=== PATIENT | male | born 1970 | race American Indian/Alaskan Native ===

== ENCOUNTER 2020-12-20 10:56 | Inpatient (IN) | payer OTHER ==
[2020-12-20] MEDS ORDERED: dexAMETHasone 4 MG/ML VIAL IV ONE (11:25)
--- NOTE | 2020-12-20 11:28 | Emergency Department Report ---
HPI - General Chief Complaint: Dyspnea/Respdistress Time Seen by Provider: 12/20/20 11:17 - HPI HPI: 50-year-old -[place]is[place] male presents to the emergency department via EMS from senior care with complaint of shortness of breath and low oxygen saturation. The patient got his first Covid vaccine on December 11 and then began developing symptoms of shortness of breath, fatigue, cough. At first he thought it was a reaction to the vaccination, but he was tested on December 13 and was found to be positive for COVID-19. Since that time the patient been having some progressively worsening symptoms. The patient was found to have low oxygen saturation this morning in the 60s. He was given prednisone by the senior care, and magnesium by EMS. The patient was placed on a nonrebreather and went up into the 90s. The patient was seen at 78% on NRB upon arrival to this emergency department. He has a past medical history of hypertension. He denies any tob acco or illicit drug use. ED Past Medical Hx - Past Medical History Previous Medical History?: Yes Hx Hypertension: Yes Hx Congestive Heart Failure: Yes - Medications Home Medications: Home Medications Medication Instructions Recorded Confirmed Last Taken Type Losartan [Cozaar] 50 mg PO QDAY 12/20/20 12/20/20 12/20/20 07:00 History 50 ED Review of Systems ROS: Stated complaint: COVID POSITIVE/JIM/FROM ALF Other details as noted in HPI Comment: All other systems reviewed and negative Constitutional: denies: chills, fever Eyes: denies: eye pain, vision change ENT: denies: ear pain, throat pain Respiratory: cough, shortness of breath, wheezing Cardiovascular: denies: chest pain, palpitations Gastrointestinal: denies: abdominal pain, vomiting Genitourinary: denies: dysuria, discharge Musculoskeletal: denies: back pain, arthralgia Skin: denies: rash, lesions Neurological: denies: headache, weakness Physical Exam - Physical Exam Physical Exam: GENERAL: The patient is ill-appearing. HENT: Normocephalic. Atraumatic. Patient has moist mucous membranes. EYES: Extraocular motions are intact. NECK: Supple. Trachea is midline. CHEST/LUNGS: There is tachypnea. Bilateral rhonchi. Conversational dyspnea. HEART/CARDIOVASCULAR: Regular. There is mild tachycardia. There is no murmur. ABDOMEN: Abdomen is soft, nontender. Patient has normal bowel sounds. Morbidly obese habitus. SKIN: Skin is warm and dry. NEURO: The patient is awake, alert, and oriented. The patient is cooperative. The patient has no focal neurologic deficits. Normal speech. MUSCULOSKELETAL: There is no tenderness or deformity. There is no limitation range of motion. ED Medical Decision Making - Lab Data Result diagrams: 12/20/20 11:31 12/20/20 11:31 Lab Results 12/20/20 12/20/20 12/20/20 Range/Units 11:31 11:31 11:31 WBC 16.5 H (4.5-11.0) K/mm3 RBC 5.27 H (3.65-5.03) M/mm3 Hgb 14.7 (11.8-15.2) gm/dl Hct 45.2 (35.5-45.6) % MCV 86 (84-94) fl MCH 28 (28-32) pg MCHC 32 (32-34) % RDW 14.4 (13.2-15.2) % Plt Count 204 (140-440) K/mm3 D-Dimer > 99161 H (0-234) ng/mlDDU Sodium 130 L (137-145) mmol/L Potassium 4.2 (3.6-5.0) mmol/L Chloride 94.5 L (98-107) mmol/L Carbon Dioxide 22 (22-30) mmol/L Anion Gap 18 mmol/L BUN 64 H (9-20) mg/dL Creatinine 2.6 H (0.8-1.3) mg/dL Estimated GFR 32 ml/min BUN/Creatinine Ratio 25 % Glucose 154 H (75-100) mg/dL Calcium 8.4 (8.4-10.2) mg/dL Total Bilirubin 1.00 (0.1-1.2) mg/dL AST 28 (5-40) units/L ALT 24 (7-56) units/L Alkaline Phosphatase 51 (35-129) units/L Lactate Dehydrogenase (91-180) units/L Troponin T (0.00-0.029) ng/mL C-Reactive Protein (0.00-1.30) mg/dL Total Protein 8.1 (6.3-8.2) g/dL Albumin 3.5 L (3.9-5) g/dL Albumin/Globulin Ratio 0.8 % Triglycerides (2-149) mg/dL Cholesterol (50-199) mg/dL LDL Cholesterol Direct (50-130) mg/dL HDL Cholesterol (40-59) mg/dL Cholesterol/HDL Ratio % Procalcitonin (<0.15) ng/mL 12/20/20 12/20/20 Range/Units 11:31 11:31 WBC (4.5-11.0) K/mm3 RBC (3.65-5.03) M/mm3 Hgb (11.8-15.2) gm/dl Hct (35.5-45.6) % MCV (84-94) fl MCH (28-32) pg MCHC (32-34) % RDW (13.2-15.2) % Plt Count (140-440) K/mm3 D-Dimer (0-234) ng/mlDDU Sodium (137-145) mmol/L Potassium (3.6-5.0) mmol/L Chloride (98-107) mmol/L Carbon Dioxide (22-30) mmol/L Anion Gap mmol/L BUN (9-20) mg/dL Creatinine (0.8-1.3) mg/dL Estimated GFR ml/min BUN/Creatinine Ratio % Glucose (75-100) mg/dL Calcium (8.4-10.2) mg/dL Total Bilirubin (0.1-1.2) mg/dL AST (5-40) units/L ALT (7-56) units/L Alkaline Phosphatase (35-129) units/L Lactate Dehydrogenase 10 L (91-180) units/L Troponin T 0.106 H* (0.00-0.029) ng/mL C-Reactive Protein 5.20 H (0.00-1.30) mg/dL Total Protein (6.3-8.2) g/dL Albumin (3.9-5) g/dL Albumin/Globulin Ratio % Triglycerides 226 H (2-149) mg/dL Cholesterol 175 (50-199) mg/dL LDL Cholesterol Direct 98 (50-130) mg/dL HDL Cholesterol 31 L (40-59) mg/dL Cholesterol/HDL Ratio 5.64 % Procalcitonin 1.45 (<0.15) ng/mL - EKG Data -: EKG Interpreted by Me EKG shows normal: sinus rhythm, axis (Left axis deviation), intervals, QRS c omplexes (Q waves to the anteroseptal leads), ST-T waves Rate: normal - EKG Data When compared to previous EKG there are: previous EKG unavailable Interpretation: other (Sinus rhythm, left axis deviation, Q waves to the anteroseptal leads. No ST elevation MO) - Radiology Data Radiology results: report reviewed CHEST 1 VIEW INDICATION: SOB. COMPARISON: None. FINDINGS: Support devices: None. Heart: Upper limits of normal. Lungs/Pleura: The exam is underpenetrated. There are questionable air space opacities in the right mid to lower lung. Left lung appears clear. No pleural abnormality is seen. IMPRESSION: 1. Limited study due to underpenetration. There is suggestion of mild airspace disease in the right mid to lower lung. - Medical Decision Making This patient presents from senior care with shortness of breath, hypoxia, and was found to be positive for COVID-19 about 1 week ago. The patient was 78% on a n onrebreather upon presentation. He was placed on high flow oxygen and went into the high 80s, low 90s. Chest x-ray shows some mild bilateral areas of infiltrate concerning for pneumonia. Patient's labs shows a leukocytosis of 16,000, renal insufficiency potentially showing NAVJOT, elevated troponin of 0.106, and elevated inflammatory markers D-dimer and CRP. Given that the D-dimer is greater than 10,000, without a profoundly abnormal chest x-ray, and with the patient significant hypoxia, a ventilation/perfusion scan has been ordered. Patient has been given a dose of Decadron, antibiotics and IV antibiotics. He will be admitted to the hospital for further evaluation and treatment and was a ccepted for admission by the hospitalist, Dr. Bass. Critical Care Time: Yes Critical care time in (mins) excluding proc time.: 35 Critical care attestation.: If time is entered above; I have spent that time in minutes in the direct care of this critically ill patient, excluding procedure time. Critical care time spent on this patient during his initial evaluation, multiple reevaluations, ordering and interpretation of labs and imaging, supplemental oxygen via high flow oxygen for his hypoxia, IV Decadron, IV antibiotics, multiple reevaluations. Critical Care Time: 35 minutes ED Disposition Clinical Impression: Suspected 2019 novel coronavirus infection, Acute respiratory failure with hypoxia, Pneumonia, NAVJOT (acute kidney injury), Elevated troponin Disposition: 09 ADMITTED INPATIENT Is pt being admited?: Yes Condition: Serious Time of Disposition: 15:08
[2020-12-20 11:52] LABS: Hematocrit 45.2 % (35.5-45.6); Hemoglobin 14.7 gm/dl (11.8-15.2); Mean Corpuscular HGB Conc 32 % (32-34); Mean Corpuscular Volume 86 fl (84-94); Platelet Count 204 K/mm3 (140-440); Red Blood Count 5.27 M/mm3 (3.65-5.03); Red Cell Distribution Width 14.4 % (13.2-15.2)
--- NOTE | 2020-12-20 12:20 | XRay Report ---
CHEST 1 VIEW INDICATION: SOB. COMPARISON: None. FINDINGS: Support devices: None. Heart: Upper limits of normal. Lungs/Pleura: The exam is underpenetrated. There are questionable air space opacities in the right mi d to lower lung. Left lung appears clear. No pleural abnormality is seen. IMPRESSION: 1. Limited study due to underpenetration. There is suggestion of mild airspace disease in the right m id to lower lung. Signer Name: David Mayer MD Signed: 12/20/2020 12:15 PM Workstation Name: [id number]
[2020-12-20 12:29] LABS: Albumin 3.5 g/dL (3.9-5); C-Reactive Protein 5.2 mg/dL (0.00-1.30); Calcium 8.4 mg/dL (8.4-10.2)
[2020-12-20] MEDS ORDERED: cefTRIAXone/NS 1 GM/50 ML 1 GM/50 ML BAG IV ONE (12:37)
[2020-12-20] MEDS ORDERED: SODIUM CHLORIDE 0.9% 1000 ML 1,000 ML IV ONE (12:37)
[2020-12-20] MEDS ORDERED: AZITHROMYCIN/NS 500 MG/250 ML 500 MG/250 ML BAG IV ONE (12:37)
[2020-12-20] MEDS ORDERED: ACETAMINOPHEN 325 MG TAB PO PRN (12:52)
[2020-12-20] MEDS ORDERED: HYDROmorphone 1 MG/1 ML INJ IV PRN (12:52)
[2020-12-20] MEDS ORDERED: ONDANSETRON 4 MG/2 ML INJ IV PRN (12:52)
--- NOTE | 2020-12-20 12:56 | History and Physical Report ---
History of Present Illness Chief complaint: I cannot breathe History of present illness: 50 YO Male with HTN, CHF, Obesity Hypoventilation Syndrome, Medication Noncompliance, Coronivirus Infection Diagnosed 1week ago presents to ED for evaluation. Patient reports "I cannot breathe". Patient states that he has experienced fatigue, shortness of breath, dry cough, decreased exercise tolerance, diminished sense of smell, diminished sense of taste over the past 1 week with persistent and worsening symptoms over the same timeframe. Patient is currently incarcerated and was seen by medical staff at the [facility] and was found to have a pulse oximetry in the 60s this a.m. EMS was notified and upon arrival the patient was found to be in respiratory distress and placed on supplemental oxygen via nonrebreather mask and subsequently transported to [facility] for further care and evaluation of the aforementioned symptoms. The patient was seen and evaluated in the emergency department. All lab and imaging studies reviewed. The patient was found to have a pulse oximetry of 78% on nonrebreather mask which is consistent with acute hypoxemic respiratory failure. Chest x-ray revealed bilateral pneumonia. The patient was admitted to medical floor and initiated on pneumonia protocol as well as coronavirus protocol. The patient was placed on high flow supplemental oxygen in the emergency department. Patient denies fever, chills, chest pain, palpitations, skin rash, recent ill contacts, unilateral leg swelling, calf pain, individual/family history of DVT/PE/bleeding/blood clotting disorders. No prior admission for review. No medication listed at time of admission for reconciliation. VQ scan ordered at time of admission and is currently pending. Past History Past Medical History: heart failure, hypertension, other (See HPI) Past Surgical History: No surgical history, Other (Reviewed) Social history: single. denies: smoking, alcohol abuse Family history: diabetes, hypertension Medications and Allergies Allergies Allergy/AdvReac Type Severity Reaction Status Date / Time No Known Allergies Allergy Unverified 12/20/20 11:18 Home Medications Medication Instructions Recorded Confirmed Last Taken Type Losartan [Cozaar] 50 mg PO QDAY 12/20/20 12/20/20 12/20/20 07:00 History 50 Active Meds: Active Medications Acetaminophen (Acetaminophen 325 Mg Tab) 650 mg PO Q4H PRN PRN Reason: Pain MILD(1-3)/Fever >100.5/KWON Hydromorphone HCl (Hydromorphone 1 Mg/1 Ml Inj) 0.5 mg IV Q23H PRN PRN Reason: Pain , Severe (7-10) Sodium Chloride (Nacl 0.9% 1000 Ml) 1,000 mls @ 250 mls/hr IV ONCE ONE Stop: 12/20/20 16:36 Last Admin: 12/20/20 12:47 Dose: 250 mls/hr Documented by: Ceftriaxone Sodium (Rocephin/Ns 1 Gm/50 Ml) 1 gm in 50 mls @ 100 mls/hr IV ONCE ONE; Protocol Stop: 12/20/20 13:06 Last Admin: 12/20/20 12:48 Dose: 100 mls/hr Documented by: Azithromycin (Zithromax/Ns) 500 mg in 250 mls @ 250 mls/hr IV ONCE ONE; Protocol Stop: 12/20/20 13:36 Ceftriaxone Sodium (Rocephin/Ns 2 Gm/100 Ml) 2 gm in 100 mls @ 200 mls/hr IV Q24H GUSTAVO; Protocol Azithromycin (Zithromax/Ns) 500 mg in 250 mls @ 250 mls/hr IV Q24H GUSTAVO; Protocol Ondansetron HCl (Ondansetron 4 Mg/2 Ml Inj) 4 mg IV Q8H PRN PRN Reason: Nausea And Vomiting Oxycodone/Acetaminophen (Oxycodone /Acetaminophen 5-325mg Tab) 1 tab PO Q12H PRN PRN Reason: Pain, Moderate (4-6) Sodium Chloride (Sodium Chloride 0.9% 10 Ml Flush Syringe) 10 ml IV BID GUSTAVO Sodium Chloride (Sodium Chloride 0.9% 10 Ml Flush Syringe) 10 ml IV PRN PRN PRN Reason: LINE FLUSH Review of Systems Constitutional: weakness, malaise, lethargy, no chills, no sweats Ears, nose, mouth and throat: no ear pain, no ear discharge, no nasal discharge Cardiovascular: shortness of breath, no chest pain, no palpitations, no edema, no lightheadedness Gastrointestinal: no abdominal pain, no nausea, no diarrhea Genitourinary Male: no hematuria, no flank pain, no discharge, no urinary h esitancy, no incontinence Rectal: no pain, no bleeding Musculoskeletal: no neck stiffness, no leg numbness/tingling Integumentary: no rash, no redness, no sores, no wounds Neurological: no head injury, no paralysis, no parathesias, no numbness Psychiatric: no anxiety, no change in sleep habits, no sleep disturbances, no hypersomnia, no change in appetite, no change in libido Endocrine: no cold intolerance, no excessive thirst, no polyuria, no nocturia Hematologic/Lymphatic: no easy bruising, no easy bleeding Allergic/Immunologic: no allergic rhinitis Exam - Constitutional Vitals: Temp Pulse Resp BP Pulse Ox 98.3 F 107 H 22 146/87 87 12/20/20 11:41 12/20/20 11:41 12/20/20 11:46 12/20/20 11:41 12/20/20 11:46 General appearance: Present: mild distress, severe distress, obese - EENT Eyes: Present: PERRL ENT: hearing intact, clear oral mucosa - Neck Neck: Present: supple, normal ROM - Respiratory Respiratory effort: labored, accessory muscle use, stridor Respiratory: bilateral: diminished, rhonchi - Cardiovascular Heart Sounds: Present: S1 & S2. Absent: rub, click - Extremities Extremities: pulses symmetrical, No edema Peripheral Pulses: within normal limits - Abdominal General gastrointestinal: Present: soft, non-tender, non-distended, normal bowel sounds Male genitourinary: Present: normal - Integumentary Integumentary: Present: clear, warm, dry - Musculoskeletal Musculoskeletal: gait normal, strength equal bilaterally - Psychiatric Psychiatric: appropriate mood/affect, intact judgment & insight - Neurologic Neurologic: CNII-XII intact, moves all extremities Results - Labs CBC & Chem 7: 12/20/20 11:31 12/20/20 11:31 Labs: Abnormal lab results 12/20/20 12/20/20 12/20/20 Range/Units 11:31 11:31 11:31 WBC 16.5 H (4.5-11.0) K/mm3 RBC 5.27 H (3.65-5.03) M/mm3 D-Dimer > 19238 H (0-234) ng/mlDDU Sodium 130 L (137-145) mmol/L Chloride 94.5 L (98-107) mmol/L BUN 64 H (9-20) mg/dL Creatinine 2.6 H (0.8-1.3) mg/dL Glucose 154 H (75-100) mg/dL Lactate Dehydrogenase (91-180) units/L C-Reactive Protein (0.00-1.30) mg/dL Albumin 3.5 L (3.9-5) g/dL 12/20/20 Range/Units 11:31 WBC (4.5-11.0) K/mm3 RBC (3.65-5.03) M/mm3 D-Dimer (0-234) ng/mlDDU Sodium (137-145) mmol/L Chloride (98-107) mmol/L BUN (9-20) mg/dL Creatinine (0.8-1.3) mg/dL Glucose (75-100) mg/dL Lactate Dehydrogenase 10 L (91-180) units/L C-Reactive Protein 5.20 H (0.00-1.30) mg/dL Albumin (3.9-5) g/dL Assessment and Plan - Patient Problems (1) Acute respiratory failure with hypoxia Current Visit: Yes Status: Acute Plan to address problem: Chest x-ray, VQ scan, high flow supplemental oxygen, pulse oximetry, will consi mindi noninvasive positive pressure ventilation if patient is unable to maintain pulse oximetry on high flow supplemental oxygen. Pulmonary team consulted. (2) Coronavirus infection Current Visit: Yes Status: Acute Plan to address problem: Coronavirus protocol: IV steroid therapy, IV antibiotic therapy, supplemental oxygen, pulse oximetry, contact precautions, isolation precautions, vitamin C therapy, vitamin D therapy, zinc therapy, prophylactic anticoagulation. (3) Obesity hypoventilation syndrome Current Visit: Yes Status: Acute Plan to address problem: Balanced diet, increase physical activity discharge, outpatient pulmonary follow-up for sleep study. (4) Pneumonia Current Visit: Yes Status: Acute Plan to address problem: Pneumonia protocol: Chest x-ray, CBC, CMP, supplemental oxygen, pulse oximetry, nebulizer therapy, blood culture. (5) DVT prophylaxis Current Visit: Yes Status: Acute Plan to address problem: SCDs bilateral lower extremities while in bed, prophylactic anticoagulation (6) Advance care planning Current Visit: Yes Status: Acute Plan to address problem: Disease education conducted, care plan discussed, diagnoses discussed, prognosis discussed, patient counseled regarding coronavirus vaccination within 90 days of discharge. Patient is full code, +30 minutes.
[2020-12-20] MEDS: methylPREDNISolone Sod Succinate 40 MG/1 ML INJ IV SCH ×2 (13:49→21:59)
[2020-12-20 14:11] LABS: Chol/HDL Ratio 5.64 %
[2020-12-20 16:29] LABS: Band Neutrophils # (Manual) 0.5 K/mm3; Platelet Estimate Consistent w Auto; RBC Morphology Normal; Total Cells Counted 100
[2020-12-20] MEDS: HEPARIN 5,000 UNIT/1 ML VIAL SUB-Q SCH (21:58)
[2020-12-20] MEDS: oxyCODONE /ACETAMINOPHEN 5-325MG TAB PO PRN (21:59)
[2020-12-20] MEDS: ASCORBIC ACID 500 MG TAB PO SCH (21:59)
[2020-12-20] MEDS: ZINC SULFATE 220 MG CAP PO SCH (21:59)
[2020-12-21] MEDS: cefTRIAXone/NS 2 GM/100 ML 2 GM/100 ML BAG IV SCH (02:11)
[2020-12-21] MEDS: methylPREDNISolone Sod Succinate 40 MG/1 ML INJ IV SCH (06:18)
[2020-12-21 07:37] LABS: Hematocrit 47.3 % (35.5-45.6); Hemoglobin 15.4 gm/dl (11.8-15.2); Mean Corpuscular HGB Conc 33 % (32-34); Mean Corpuscular Volume 85 fl (84-94); Platelet Count 164 K/mm3 (140-440); Red Blood Count 5.55 M/mm3 (3.65-5.03); Red Cell Distribution Width 14.3 % (13.2-15.2)
[2020-12-21 07:50] LABS: Calcium 8.5 mg/dL (8.4-10.2)
[2020-12-21 09:11] LABS: Band Neutrophils # (Manual) 0.6 K/mm3; Myelocytes # (Manual) 0.8 K/mm3; Total Cells Counted 100
[2020-12-21 09:16] LABS: Platelet Estimate Consistent w Auto; Spherocytes Rare; Target Cells Rare
[2020-12-21] MEDS ORDERED: methylPREDNISolone Sod Succinate 40 MG/1 ML INJ IV SCH (10:58)
--- NOTE | 2020-12-21 10:58 | Progress Note ---
Assessment and Plan Assessment and plan: 50 YO Male with HTN, CHF, Obesity Hypoventilation Syndrome, Medication Noncompliance, Coronivirus Infection Diagnosed 1week ago presents to ED for evaluation. Patient reports "I cannot breathe". Patient states that he has experienced fatigue, shortness of breath, dry cough, decreased exercise tolerance, diminished sense of smell, diminished sense of taste over the past 1 week with persistent and worsening symptoms over the same timeframe. Patient is currently incarcerated and was seen by medical staff at the [facility] and was found to have a pulse oximetry in the 60s this a.m. EMS was notified and upon arrival the patient was found to be in respiratory distress and placed on supplemental oxygen via nonrebreather mask and subsequently transported to [facility] for further care and evaluation of the aforementioned symptoms. The patient was seen and evaluated in the emergency department. All lab and imaging studies reviewed. The patient was found to have a pulse oximetry of 78% on nonrebreathe r mask which is consistent with acute hypoxemic respiratory failure. Chest x- ray revealed bilateral pneumonia. The patient was admitted to medical floor and initiated on pneumonia protocol as well as coronavirus protocol. The patient was placed on high flow supplemental oxygen in the emergency department. Patient denies fever, chills, chest pain, palpitations, skin rash, recent ill contacts, unilateral leg swelling, calf pain, individual/family history of DVT/PE/bleeding/blood clotting disorders. No prior admission for review. No medication listed at time of admission for reconciliation. VQ scan ordered at time of admission and is currently pending. (1) Acute respiratory failure with hypoxia Current Visit: Yes Status: Acute Plan to address problem: Chest x-ray, VQ scan, high flow supplemental oxygen, pulse oximetry, will consider noninvasive positive pressure ventilation if patient is unable to maintain pulse oximetry on high flow supplemental oxygen. Pulmonary team consulted. (2) Coronavirus infection Current Visit: Yes Status: Acute Plan to address problem: Coronavirus protocol: IV steroid therapy, IV antibiotic therapy, supplemental oxygen, pulse oximetry, contact precautions, isolation precautions, vitamin C therapy, vitamin D therapy, zinc therapy, prophylactic anticoagulation. (3) Obesity hypoventilation syndrome Current Visit: Yes Status: Acute Plan to address problem: Balanced diet, increase physical activity discharge, outpatient pulmonary follow-up for sleep study. (4) Pneumonia Current Visit: Yes Status: Acute Plan to address problem: Pneumonia protocol: Chest x-ray, CBC, CMP, supplemental oxygen, pulse oximetry, nebulizer therapy, blood culture. (5) stable congestive heart failure (6) Acute kidney failure with vasomotor nephropathy (7) DVT prophylaxis Current Visit: Yes Status: Acute Plan to address problem: SCDs bilateral lower extremities while in bed, prophylactic anticoagulation (8) Advance care planning Current Visit: Yes Status: Acute Plan to address problem: Disease education conducted, care plan discussed, diagnoses discussed, prognosis discussed, patient counseled regarding coronavirus vaccination within 90 days of discharge. Patient is full code, +30 minutes. 12/21: Continue supportive care, wean oxygen as tolerated, Pulmonary, Nephrology, ID input. Renal improving. Continue steroids, defer Remedesivir to the ID. CPAP at night due to CARINA cct 35mins. History Interval history: Patient seen and examined remains 100% of Vapotherm. Still reports shortness of breath Hospitalist Physical - Physical exam Narrative exam: VITAL SIGNS: Reviewed. GENERAL: The patient appears normally developed, morbidly obese vital signs as documented. HEAD: No signs of head trauma. EYES: Pupils are equal. Extraocular motions intact. EARS: Hearing grossly intact. MOUTH: Oropharynx is normal. NECK: No adenopathy, no JVD. CHEST: Chest with diminished breath sounds bilaterally. No wheezes, rales, or rhonchi. CARDIAC: Regular rate and rhythm. S1 and S2, without murmurs, gallops, or rubs. VASCULAR: No Edema. Peripheral pulses normal and equal in all extremities. ABDOMEN: Soft, non tender and non distended. No rebound or guarding, and no masses palpated. Bowel Sounds normal. MUSCULOSKELETAL: Good range of motion of all major joints. Extremities without clubbing, cyanosis or edema. NEUROLOGIC EXAM: Alert and oriented x 3 No focal sensory or strength deficits. Speech normal. Follows commands. PSYCHIATRIC: Mood normal. SKIN: detail exam as documented in skin assessment - Constitutional Vitals: Temp Pulse Resp BP Pulse Ox 98.5 F 100 H 32 H 169/98 89 12/21/20 06:12 12/21/20 06:12 12/21/20 06:12 12/21/20 06:21 12/21/20 06:12 General appearance: Present: mild distress, severe distress, obese HEART Score - HEART Score Troponin: Troponin T 0.106 ng/mL (0.00-0.029) H* 12/20/20 11:31 Results - Labs CBC & Chem 7: 12/21/20 06:10 12/21/20 06:10 Labs: Laboratory Last Values WBC 20.1 K/mm3 (4.5-11.0) H 12/21/20 06:10 RBC 5.55 M/mm3 (3.65-5.03) H 12/21/20 06:10 Hgb 15.4 gm/dl (11.8-15.2) H 12/21/20 06:10 Hct 47.3 % (35.5-45.6) H 12/21/20 06:10 MCV 85 fl (84-94) 12/21/20 06:10 MCH 28 pg (28-32) 12/21/20 06:10 MCHC 33 % (32-34) 12/21/20 06:10 RDW 14.3 % (13.2-15.2) 12/21/20 06:10 Plt Count 164 K/mm3 (140-440) 12/21/20 06:10 Add Manual Diff Complete 12/21/20 06:10 Total Counted 100 12/21/20 06:10 Seg Neuts % (Manual) 89.0 % (40.0-70.0) H 12/21/20 06:10 Band Neutrophils % 3.0 % 12/21/20 06:10 Lymphocytes % (Manual) 5.0 % (13.4-35.0) L 12/20/20 11:31 Reactive Lymphs % (Man) 2.0 % 12/21/20 06:10 Monocytes % (Manual) 1.0 % (0.0-7.3) 12/21/20 06:10 Myelocytes % 4.0 % 12/21/20 06:10 Blast Cells % 1.0 % 12/21/20 06:10 Nucleated RBC % 1.0 % (0.0-0.9) H 12/21/20 06:10 Seg Neutrophils # Man 17.9 K/mm3 (1.8-7.7) H 12/21/20 06:10 Band Neutrophils # 0.6 K/mm3 12/21/20 06:10 Lymphocytes # (Manual) 0.0 K/mm3 (1.2-5.4) L 12/21/20 06:10 Abs React Lymphs (Man) 0.4 K/mm3 12/21/20 06:10 Monocytes # (Manual) 0.2 K/mm3 (0.0-0.8) 12/21/20 06:10 Eosinophils # (Manual) 0.0 K/mm3 (0.0-0.4) 12/21/20 06:10 Basophils # (Manual) 0.0 K/mm3 (0.0-0.1) 12/21/20 06:10 Metamyelocytes # 0.0 K/mm3 12/21/20 06:10 Myelocytes # 0.8 K/mm3 12/21/20 06:10 Promyelocytes # 0.0 K/mm3 12/21/20 06:10 Blast Cells # 0.1 K/mm3 12/21/20 06:10 WBC Morphology Not Reportable 12/21/20 06:10 Hypersegmented Neuts Not Reportable 12/21/20 06:10 Hyposegmented Neuts Not Reportable 12/21/20 06:10 Hypogranular Neuts Not Reportable 12/21/20 06:10 Smudge Cells Not Reportable 12/21/20 06:10 Toxic Granulation Not Reportable 12/21/20 06:10 Toxic Vacuolation Not Reportable 12/21/20 06:10 Dohle Bodies Not Reportable 12/21/20 06:10 Pelger-Huet Anomaly Not Reportable 12/21/20 06:10 Chantel Rods Not Reportable 12/21/20 06:10 Platelet Estimate Consistent w auto 12/21/20 06:10 Clumped Platelets Not Reportable 12/21/20 06:10 Plt Clumps, EDTA Not Reportable 12/21/20 06:10 Large Platelets Not Reportable 12/21/20 06:10 Giant Platelets Not Reportable 12/21/20 06:10 Platelet Satelliting Not Reportable 12/21/20 06:10 Plt Morphology Comment Not Reportable 12/21/20 06:10 RBC Morphology Not Reportable 12/21/20 06:10 Dimorphic RBCs Not Reportable 12/21/20 06:10 Polychromasia Not Reportable 12/21/20 06:10 Hypochromasia Not Reportable 12/21/20 06:10 Poikilocytosis Not Reportable 12/21/20 06:10 Anisocytosis Not Reportable 12/21/20 06:10 Microcytosis Not Reportable 12/21/20 06:10 Macrocytosis Not Reportable 12/21/20 06:10 Spherocytes Rare 12/21/20 06:10 Pappenheimer Bodies Not Reportable 12/21/20 06:10 Sickle Cells Not Reportable 12/21/20 06:10 Target Cells Rare 12/21/20 06:10 Tear Drop Cells Not Reportable 12/21/20 06:10 Ovalocytes Not Reportable 12/21/20 06:10 Helmet Cells Not Reportable 12/21/20 06:10 Torres-Ector Bodies Not Reportable 12/21/20 06:10 [place] Rings Not Reportable 12/21/20 06:10 Chaparro Cells Not Reportable 12/21/20 06:10 Bite Cells Not Reportable 12/21/20 06:10 Crenated Cell Not Reportable 12/21/20 06:10 Elliptocytes Not Reportable 12/21/20 06:10 Acanthocytes (Spur) Not Reportable 12/21/20 06:10 Rouleaux Not Reportable 12/21/20 06:10 Hemoglobin C Crystals Not Reportable 12/21/20 06:10 Schistocytes Not Reportable 12/21/20 06:10 Malaria parasites Not Reportable 12/21/20 06:10 Andrew Bodies Not Reportable 12/21/20 06:10 Hem Pathologist Commnt No 12/21/20 06:10 D-Dimer > 92435 ng/mlDDU (0-234) H 12/20/20 11:31 Sodium 136 mmol/L (137-145) L 12/21/20 06:10 Potassium 4.5 mmol/L (3.6-5.0) 12/21/20 06:10 Chloride 99.0 mmol/L (98-107) 12/21/20 06:10 Carbon Dioxide 23 mmol/L (22-30) 12/21/20 06:10 Anion Gap 19 mmol/L 12/21/20 06:10 BUN 57 mg/dL (9-20) H 12/21/20 06:10 Creatinine 1.8 mg/dL (0.8-1.3) H 12/21/20 06:10 Estimated GFR 49 ml/min 12/21/20 06:10 BUN/Creatinine Ratio 32 % 12/21/20 06:10 Glucose 193 mg/dL (75-100) H 12/21/20 06:10 Calcium 8.5 mg/dL (8.4-10.2) 12/21/20 06:10 Total Bilirubin 1.00 mg/dL (0.1-1.2) 12/20/20 11:31 AST 28 units/L (5-40) 12/20/20 11:31 ALT 24 units/L (7-56) 12/20/20 11:31 Alkaline Phosphatase 51 units/L (35-129) 12/20/20 11:31 Lactate Dehydrogenase 10 units/L (91-180) L 12/20/20 11:31 Troponin T 0.106 ng/mL (0.00-0.029) H* 12/20/20 11:31 C-Reactive Protein 5.20 mg/dL (0.00-1.30) H 12/20/20 11:31 Total Protein 8.1 g/dL (6.3-8.2) 12/20/20 11:31 Albumin 3.5 g/dL (3.9-5) L 12/20/20 11:31 Albumin/Globulin Ratio 0.8 % 12/20/20 11:31 Triglycerides 226 mg/dL (2-149) H 12/20/20 11:31 Cholesterol 175 mg/dL (50-199) 12/20/20 11:31 LDL Cholesterol Direct 98 mg/dL (50-130) 12/20/20 11:31 HDL Cholesterol 31 mg/dL (40-59) L 12/20/20 11:31 Cholesterol/HDL Ratio 5.64 % 12/20/20 11:31 Procalcitonin 1.45 ng/mL (<0.15) 12/20/20 11:31 Murray/IV: Voiding Method Urinal Active Medications - Current Medications Current Medications: Generic Name Dose Route Start Last Admin Trade Name Freq PRN Reason Stop Dose Admin Acetaminophen 650 mg 12/20/20 12:52 Acetaminophen 325 Mg Tab PO Q4H PRN Pain MILD(1-3)/Fever >100.5/KWON Ascorbic Acid 500 mg 12/20/20 22:00 12/20/20 21:59 Ascorbic Acid 500 Mg Tab PO 500 mg BID GUSTAVO Administration Cholecalciferol 1,000 unit 12/21/20 10:00 Cholecalciferol (Vit D3) 1000 Unit (25 Mcg) Tab PO QDAY GUSTAVO Heparin Sodium (Porcine) 5,000 unit 12/20/20 22:00 12/20/20 21:58 Heparin 5,000 Unit/1 Ml Vial SUB-Q 5,000 unit Q12HR GUSTAVO Administration Hydromorphone HCl 0.5 mg 12/20/20 12:52 Hydromorphone 1 Mg/1 Ml Inj IV Q23H PRN Pain , Severe (7-10) Ceftriaxone Sodium 2 gm in 100 mls @ 200 mls/hr 12/21/20 00:00 12/21/20 02:11 Rocephin/Ns 2 Gm/100 Ml IV 12/25/20 03:59 200 mls/hr Q24H GUSTAVO Administration Protocol Azithromycin 500 mg in 250 mls @ 250 mls/hr 12/21/20 12:00 Zithromax/Ns IV 12/24/20 12:59 Q24H GUSTAVO Protocol Methylprednisolone Sodium Succinate 40 mg 12/20/20 14:00 12/21/20 06:18 Methylprednisolone Sod Succinate 40 Mg/1 Ml Inj IV 40 mg Q8HR GUSTAVO Administration Ondansetron HCl 4 mg 12/20/20 12:52 Ondansetron 4 Mg/2 Ml Inj IV Q8H PRN Nausea And Vomiting Oxycodone/Acetaminophen 1 tab 12/20/20 12:52 12/20/20 21:59 Oxycodone /Acetaminophen 5-325mg Tab PO 1 tab Q12H PRN Administration Pain, Moderate (4-6) Sodium Chloride 10 ml 12/20/20 22:00 12/20/20 21:59 Sodium Chloride 0.9% 10 Ml Flush Syringe IV 10 ml BID GUSTAVO Administration Sodium Chloride 10 ml 12/20/20 12:52 Sodium Chloride 0.9% 10 Ml Flush Syringe IV PRN PRN LINE FLUSH Zinc Sulfate 220 mg 12/20/20 22:00 12/20/20 21:59 Zinc Sulfate 220 Mg Cap PO 220 mg BID GUSTAVO Administration
--- NOTE | 2020-12-21 11:20 | Consultation ---
History of Present Illness - Reason for Consult Consult date: 12/21/20 acute renal failure - History of Present Illness The patient is a 50 YO male with history significant for Morbid Obesity, HTN, CHF, Medication Non-compliance and COVID-19 infection (diagnosed 1 week ago) who presented to [facility] ED 12/20 with c/o sob. Patient also reports fatigue, shortness of breath, dry cough, decreased exercise tolerance, diminished sense of smell, diminished sense of taste over the past week. Patient is currently incarcerated and was seen by medical staff at the [facility] and was found to have a pulse oximetry in the 60s. In ED the patient was found to have a pulse-ox of 77%. Per pt he received J&J vaccine in Mar 2020. He tested positive for Covid-19. Chest x-ray revealed bilateral pneumonia. Labs significant for Creat 1.8 and BUN 57. Nephrology was consulted for further evaluation and treatment of NAVJOT. Past History Past Medical History: heart failure, hypertension, other (See HPI) Past Surgical History: No surgical history, Other (Reviewed) Social history: single. denies: smoking, alcohol abuse Family history: diabetes, hypertension Medications and Allergies Allergies Allergy/AdvReac Type Severity Reaction Status Date / Time No Known Allergies Allergy Verified 12/21/20 05:36 Home Medications Medication Instructions Recorded Confirmed Last Taken Type Losartan [Cozaar] 50 mg PO QDAY 12/20/20 12/20/20 12/20/20 07:00 History 50 Active Meds: Active Medications Acetaminophen (Acetaminophen 325 Mg Tab) 650 mg PO Q4H PRN PRN Reason: Pain MILD(1-3)/Fever >100.5/KWON Ascorbic Acid (Ascorbic Acid 500 Mg Tab) 500 mg PO BID [facility] Last Admin: 12/20/20 21:59 Dose: 500 mg Documented by: Cholecalciferol (Cholecalciferol (Vit D3) 1000 Unit (25 Mcg) Tab) 1,000 unit PO QDAY GUSTAVO Furosemide (Furosemide 40 Mg/4 Ml Inj) 40 mg IV QDAY [facility] Stop: 12/23/20 10:01 Heparin Sodium (Porcine) (Heparin 5,000 Unit/1 Ml Vial) 5,000 unit SUB-Q Q12HR GUSTAVO Last Admin: 12/20/20 21:58 Dose: 5,000 unit Documented by: Hydromorphone HCl (Hydromorphone 1 Mg/1 Ml Inj) 0.5 mg IV Q23H PRN PRN Reason: Pain , Severe (7-10) Ceftriaxone Sodium (Rocephin/Ns 2 Gm/100 Ml) 2 gm in 100 mls @ 200 mls/hr IV Q24H [facility]; Protocol Stop: 12/25/20 03:59 Last Admin: 12/21/20 02:11 Dose: 200 mls/hr Documented by: Azithromycin (Zithromax/Ns) 500 mg in 250 mls @ 250 mls/hr IV Q24H [facility]; Protocol Stop: 12/24/20 12:59 Methylprednisolone Sodium Succinate (Methylprednisolone Sod Succinate 125 Mg/2 Ml Inj) 80 mg IV Q8HR [facility] Ondansetron HCl (Ondansetron 4 Mg/2 Ml Inj) 4 mg IV Q8H PRN PRN Reason: Nausea And Vomiting Oxycodone/Acetaminophen (Oxycodone /Acetaminophen 5-325mg Tab) 1 tab PO Q12H PRN PRN Reason: Pain, Moderate (4-6) Last Admin: 12/20/20 21:59 Dose: 1 tab Documented by: Sodium Chloride (Sodium Chloride 0.9% 10 Ml Flush Syringe) 10 ml IV BID [facility] Last Admin: 12/20/20 21:59 Dose: 10 ml Documented by: Sodium Chloride (Sodium Chloride 0.9% 10 Ml Flush Syringe) 10 ml IV PRN PRN PRN Reason: LINE FLUSH Zinc Sulfate (Zinc Sulfate 220 Mg Cap) 220 mg PO BID [facility] Last Admin: 12/20/20 21:59 Dose: 220 mg Documented by: Review of Systems Constitutional: fever, chills, anorexia, fatigue, poor appetite, no weight loss, no weight gain Cardiovascular: shortness of breath, dyspnea on exertion, high blood pressure, no chest pain, no edema, no syncope, no lightheadedness, no leg edema Respiratory: cough, shortness of breath, dyspnea on exertion, no hemoptysis Gastrointestinal: no abdominal pain, no nausea, no vomiting, no diarrhea, no melena Genitourinary Male: no dysuria, no hematuria Neurological: no tic, no aphasia, no change in speech, no change in mentation, no confusion Exam - Vital Signs Vital signs: Vital Signs Pulse Ox 91 12/20/20 11:34 Results - Lab Results 12/22/20 05:56 12/22/20 05:56 Most recent lab results Calcium 8.5 mg/dL (8.4-10.2) 12/21/20 06:10 Assessment and Plan 1. Acute kidney injury: NAVJOT in the setting of Covid-19 infection. Suspect ATN. Baseline renal function is unknown. Urine studies pending. Monitor renal function. Creatinine level is better today. Avoid nephrotoxic agents. Meds dosage based on GFR. 2. FEN: Monitor lytes and volume status. 3. Acute hypoxic resp failure, POA: 2/ Covid-19 PNA. Test positive for Covid-19. Per pt he received J&J vaccine in Mar 2020. On NRB. Followed by Pulmonary. 4. Covid-19 PNA, POA: Test positive for Covid-19. Per pt he received J&J vaccine in Mar 2020. On Abx, Solumedrol and Remdesivir. Monitor. 5. Sepsis, POA: 2/ Covid-19 pneumonia. Abx. Followed by ID. 6. HTN: Monitor BP. Adjust meds as needed. 7. Elevated bl glu: Monitor. Subjective: Patient was seen and examined at the bedside. Examination: General appearance: well-developed, appears stated age, obese, on NRB HEENT: atraumatic Neck: trachea midline Respiratory: coarse breath sounds Heart: S1S2, regular, no murmur Abdomen: soft, obese, bowel sounds heard, NT Integumentary: no rash Neurologic: AO, non-focal Ext: no edema
[2020-12-21] MEDS: HEPARIN 5,000 UNIT/1 ML VIAL SUB-Q SCH (11:44)
[2020-12-21] MEDS: ASCORBIC ACID 500 MG TAB PO SCH ×2 (11:44→22:27)
[2020-12-21] MEDS: CHOLECALCIFEROL (VIT D3) 1000 UNIT (25 mcg) TAB PO SCH (11:44)
[2020-12-21] MEDS: ZINC SULFATE 220 MG CAP PO SCH ×2 (11:44→22:27)
[2020-12-21] MEDS: FUROSEMIDE 40 MG/4 ML INJ IV SCH (11:53)
[2020-12-21] MEDS: methylPREDNISolone Sod Succinate 125 MG/2 ML INJ IV SCH ×2 (11:53→22:28)
[2020-12-21] MEDS: AZITHROMYCIN/NS 500 MG/250 ML 500 MG/250 ML BAG IV SCH (11:54)
--- NOTE | 2020-12-21 12:34 | Consultation ---
History of Present Illness - Reason for Consult Consult date: 12/21/20 Sepsis Requesting physician: TONO CEBALLOS - History of Present Illness The patient is a 50-year-old male with hypertension, CHF, noncompliance, currently incarcerated admitted to the hospital with worsening shortness of breath. He reportedly tested positive for COVID-19 a week prior. Upon evaluation, noted to be hypoxic requiring nonrebreather mask. Chest x-ray revealed bilateral pneumonia. No fever. Labs revealed leukocytosis, D-dimer greater than 10,000, troponin 0.1, CRP 5.2, procalcitonin 1.45 Review of Systems: reviewed in the chart, unable to obtain, minimize risk of transmission Past History Past Medical History: heart failure, hypertension, other (See HPI) Past Surgical History: No surgical history, Other (Reviewed) Social history: single. denies: smoking, alcohol abuse Family history: diabetes, hypertension Medications and Allergies Allergies Allergy/AdvReac Type Severity Reaction Status Date / Time No Known Allergies Allergy Verified 12/21/20 05:36 Home Medications Medication Instructions Recorded Confirmed Last Taken Type Losartan [Cozaar] 50 mg PO QDAY 12/20/20 12/20/20 12/20/20 07:00 History 50 Active Meds: Active Medications Acetaminophen (Acetaminophen 325 Mg Tab) 650 mg PO Q4H PRN PRN Reason: Pain MILD(1-3)/Fever >100.5/KWON Ascorbic Acid (Ascorbic Acid 500 Mg Tab) 500 mg PO BID [facility] Last Admin: 12/21/20 11:44 Dose: 500 mg Documented by: Cholecalciferol (Cholecalciferol (Vit D3) 1000 Unit (25 Mcg) Tab) 1,000 unit PO QDAY [facility] Last Admin: 12/21/20 11:44 Dose: 1,000 unit Documented by: Enoxaparin Sodium (Enoxaparin 150 Mg/1 Ml Inj) 150 mg SUB-Q Q12HR [facility] Furosemide (Furosemide 40 Mg/4 Ml Inj) 40 mg IV QDAY [facility] Stop: 12/23/20 10:01 Last Admin: 12/21/20 11:53 Dose: 40 mg Documented by: Hydromorphone HCl (Hydromorphone 1 Mg/1 Ml Inj) 0.5 mg IV Q23H PRN PRN Reason: Pain , Severe (7-10) Ceftriaxone Sodium (Rocephin/Ns 2 Gm/100 Ml) 2 gm in 100 mls @ 200 mls/hr IV Q24H GUSTAVO; Protocol Stop: 12/25/20 03:59 Last Admin: 12/21/20 02:11 Dose: 200 mls/hr Documented by: Azithromycin (Zithromax/Ns) 500 mg in 250 mls @ 250 mls/hr IV Q24H GUSTAVO; Protocol Stop: 12/24/20 12:59 Last Admin: 12/21/20 11:54 Dose: 250 mls/hr Documented by: Methylprednisolone Sodium Succinate (Methylprednisolone Sod Succinate 125 Mg/2 Ml Inj) 80 mg IV Q8HR GUSTAVO Last Admin: 12/21/20 11:53 Dose: 80 mg Documented by: Ondansetron HCl (Ondansetron 4 Mg/2 Ml Inj) 4 mg IV Q8H PRN PRN Reason: Nausea And Vomiting Oxycodone/Acetaminophen (Oxycodone /Acetaminophen 5-325mg Tab) 1 tab PO Q12H PRN PRN Reason: Pain, Moderate (4-6) Last Admin: 12/20/20 21:59 Dose: 1 tab Documented by: Sodium Chloride (Sodium Chloride 0.9% 10 Ml Flush Syringe) 10 ml IV BID [facility] Last Admin: 12/21/20 11:44 Dose: 10 ml Documented by: Sodium Chloride (Sodium Chloride 0.9% 10 Ml Flush Syringe) 10 ml IV PRN PRN PRN Reason: LINE FLUSH Zinc Sulfate (Zinc Sulfate 220 Mg Cap) 220 mg PO BID [facility] Last Admin: 12/21/20 11:44 Dose: 220 mg Documented by: Physical Examination - Physical Exam Narrative exam: Physical Exam (reviewed in chart to minimize risk of transmission) Constitutional: deferred Head, Ears, Nose: deferred Eyes: deferred Neck: deferred Oral: deferred Cardiovascular: deferred Respiratory: deferred GI: deferred Musculoskeletal: deferred Skin: deferred Hem/Lymphatic: deferred Psych: deferred Neurological: deferred - Constitutional Vitals: Vital Signs Temp Pulse Resp BP Pulse Ox 98.5 F 100 H 32 H 169/98 88 12/21/20 06:12 12/21/20 06:12 12/21/20 06:12 12/21/20 06:21 12/21/20 08:29 Temperature -Last 24 Hours Temperature 98.5 F Temperature 98.1 F Temperature 98.1 F Results - Labs CBC & Chem 7: 12/21/20 06:10 12/21/20 06:10 Labs: Abnormal lab results 12/20/20 12/20/20 12/21/20 Range/Units 11:31 11:31 06:10 WBC 16.5 H 20.1 H (4.5-11.0) K/mm3 RBC 5.27 H 5.55 H (3.65-5.03) M/mm3 Hgb 15.4 H (11.8-15.2) gm/dl Hct 47.3 H (35.5-45.6) % Seg Neuts % (Manual) 90.0 H 89.0 H (40.0-70.0) % Lymphocytes % (Manual) 5.0 L (13.4-35.0) % Nucleated RBC % 1.0 H (0.0-0.9) % Seg Neutrophils # Man 14.9 H 17.9 H (1.8-7.7) K/mm3 Lymphocytes # (Manual) 0.8 L 0.0 L (1.2-5.4) K/mm3 Sodium (137-145) mmol/L BUN (9-20) mg/dL Creatinine (0.8-1.3) mg/dL Glucose (75-100) mg/dL Lactate Dehydrogenase 10 L (91-180) units/L Troponin T 0.106 H* (0.00-0.029) ng/mL C-Reactive Protein 5.20 H (0.00-1.30) mg/dL Triglycerides 226 H (2-149) mg/dL HDL Cholesterol 31 L (40-59) mg/dL 12/21/20 Range/Units 06:10 WBC (4.5-11.0) K/mm3 RBC (3.65-5.03) M/mm3 Hgb (11.8-15.2) gm/dl Hct (35.5-45.6) % Seg Neuts % (Manual) (40.0-70.0) % Lymphocytes % (Manual) (13.4-35.0) % Nucleated RBC % (0.0-0.9) % Seg Neutrophils # Man (1.8-7.7) K/mm3 Lymphocytes # (Manual) (1.2-5.4) K/mm3 Sodium 136 L (137-145) mmol/L BUN 57 H (9-20) mg/dL Creatinine 1.8 H (0.8-1.3) mg/dL Glucose 193 H (75-100) mg/dL Lactate Dehydrogenase (91-180) units/L Troponin T (0.00-0.029) ng/mL C-Reactive Protein (0.00-1.30) mg/dL Triglycerides (2-149) mg/dL HDL Cholesterol (40-59) mg/dL - Imaging and Cardiology Chest x-ray: report reviewed, image reviewed (poor quality image) Assessment and Plan Cultures: SARS CoV2 PCR: Reportedly positive outpatient, pending here A/P: 50/M with HTN, CHF, non-compliance, currently incarcerated admitted to the hospital with: #Sepsis, secondary to bilateral pneumonia: Suspected due to COVID-19 #Acute hypoxic respiratory failure #NAVJOT: Renally dose antibiotics. #Morbid obesity Recs: Remdesivir ordered. Follow-up COVID-19 PCR, if negative, stop remdesivir Continue empiric antibiotics already on steroids (solumedrol) Follow-up VQ scan due to elevated D-dimer and NAVJOT Julián Arce MD, FACP [facility] ([facility] O: [phone] F: [phone]
--- NOTE | 2020-12-21 14:10 | Consultation ---
History of Present Illness Consult date: 12/21/20 Reason for consult: hypoxemia History of present illness: 50 y/o prisoner admitted with acute respiratory failure secondary to COVID 19 pneumonia. Past History Past Medical History: heart failure, hypertension, other (See HPI) Past Surgical History: No surgical history, Other (Reviewed) Social history: single. denies: smoking, alcohol abuse Family history: diabetes, hypertension Medications and Allergies Allergies Allergy/AdvReac Type Severity Reaction Status Date / Time No Known Allergies Allergy Verified 12/21/20 05:36 Home Medications Medication Instructions Recorded Confirmed Last Taken Type Losartan [Cozaar] 50 mg PO QDAY 12/20/20 12/20/20 12/20/20 07:00 History 50 Active Meds: Active Medications Acetaminophen (Acetaminophen 325 Mg Tab) 650 mg PO Q4H PRN PRN Reason: Pain MILD(1-3)/Fever >100.5/KWON Ascorbic Acid (Ascorbic Acid 500 Mg Tab) 500 mg PO BID [facility] Last Admin: 12/21/20 11:44 Dose: 500 mg Documented by: Cholecalciferol (Cholecalciferol (Vit D3) 1000 Unit (25 Mcg) Tab) 1,000 unit PO QDAY [facility] Last Admin: 12/21/20 11:44 Dose: 1,000 unit Documented by: Enoxaparin Sodium (Enoxaparin 150 Mg/1 Ml Inj) 150 mg SUB-Q Q12HR [facility] Furosemide (Furosemide 40 Mg/4 Ml Inj) 40 mg IV QDAY [facility] Stop: 12/23/20 10:01 Last Admin: 12/21/20 11:53 Dose: 40 mg Documented by: Hydromorphone HCl (Hydromorphone 1 Mg/1 Ml Inj) 0.5 mg IV Q23H PRN PRN Reason: Pain , Severe (7-10) Ceftriaxone Sodium (Rocephin/Ns 2 Gm/100 Ml) 2 gm in 100 mls @ 200 mls/hr IV Q24H [facility]; Protocol Stop: 12/25/20 03:59 Last Admin: 12/21/20 02:11 Dose: 200 mls/hr Documented by: Azithromycin (Zithromax/Ns) 500 mg in 250 mls @ 250 mls/hr IV Q24H [facility]; Protocol Stop: 12/24/20 12:59 Last Admin: 12/21/20 11:54 Dose: 250 mls/hr Documented by: REMDESIVIR 200 mg/ Sodium (Chloride) 250 mls @ 500 mls/hr IV ONCE ONE Stop: 12/21/20 13:03 REMDESIVIR 100 mg/ Sodium (Chloride) 250 mls @ 500 mls/hr IV Q24HR@2100 [facility] Stop: 12/25/20 21:29 Methylprednisolone Sodium Succinate (Methylprednisolone Sod Succinate 125 Mg/2 Ml Inj) 80 mg IV Q8HR [facility] Last Admin: 12/21/20 11:53 Dose: 80 mg Documented by: Ondansetron HCl (Ondansetron 4 Mg/2 Ml Inj) 4 mg IV Q8H PRN PRN Reason: Nausea And Vomiting Oxycodone/Acetaminophen (Oxycodone /Acetaminophen 5-325mg Tab) 1 tab PO Q12H PRN PRN Reason: Pain, Moderate (4-6) Last Admin: 12/20/20 21:59 Dose: 1 tab Documented by: Sodium Chloride (Sodium Chloride 0.9% 10 Ml Flush Syringe) 10 ml IV BID [facility] Last Admin: 12/21/20 11:44 Dose: 10 ml Documented by: Sodium Chloride (Sodium Chloride 0.9% 10 Ml Flush Syringe) 10 ml IV PRN PRN PRN Reason: LINE FLUSH Sodium Chloride (Sodium Chloride 0.9% 50 Ml Ivpb) 50 ml IV Q24HR@2100 [facility] Stop: 12/25/20 21:01 Zinc Sulfate (Zinc Sulfate 220 Mg Cap) 220 mg PO BID [facility] Last Admin: 12/21/20 11:44 Dose: 220 mg Documented by: Review of Systems All systems: negative Physical Examination Vital signs: Vital Signs Pulse Ox 91 12/20/20 11:34 Deferred Results - Laboratory Findings CBC and BMP: 12/27/20 04:46 12/27/20 04:46 PT/INR, D-dimer D-Dimer > 96705 ng/mlDDU (0-234) H 12/20/20 11:31 Abnormal lab findings: Abnormal Labs 12/20/20 12/20/20 12/20/20 11:31 11:31 11:31 WBC 16.5 H RBC 5.27 H Hgb Hct Seg Neuts % (Manual) 90.0 H Lymphocytes % (Manual) 5.0 L Nucleated RBC % Seg Neutrophils # Man 14.9 H Lymphocytes # (Manual) 0.8 L D-Dimer > 08515 H Sodium 130 L Chloride 94.5 L BUN 64 H Creatinine 2.6 H Glucose 154 H Lactate Dehydrogenase Troponin T C-Reactive Protein Albumin 3.5 L Triglycerides HDL Cholesterol 12/20/20 12/21/20 12/21/20 11:31 06:10 06:10 WBC 20.1 H RBC 5.55 H Hgb 15.4 H Hct 47.3 H Seg Neuts % (Manual) 89.0 H Lymphocytes % (Manual) Nucleated RBC % 1.0 H Seg Neutrophils # Man 17.9 H Lymphocytes # (Manual) 0.0 L D-Dimer Sodium 136 L Chloride BUN 57 H Creatinine 1.8 H Glucose 193 H Lactate Dehydrogenase 10 L Troponin T 0.106 H* C-Reactive Protein 5.20 H Albumin Triglycerides 226 H HDL Cholesterol 31 L - Diagnostic Findings Chest x-ray: image reviewed Assessment and Plan 50 y/o obese male, COVID positive admitted with acute hypoxic respiratory failure, renal failure and elevated D-Dimer 1. Ordered stat BNP 2. Agree with Echo, follow up read as it has been done per the chart 3. Agree with steroids right now 4. Was given lasix yesterday and renal function improved. Agree with continued therapy, and follow up renal recs 5. Remdesivir ordered by ID 6. Prone as tolerated during the day and sleep prone at night 7. Guarded prognosis.
[2020-12-21 14:13] LABS: Albumin 3.3 g/dL (3.9-5); Calcium 8.3 mg/dL (8.4-10.2)
--- NOTE | 2020-12-21 15:34 | Consultation ---
History of Present Illness Consult date: 12/21/20 Requesting physician: TONO CEBALLOS Consult reason: other (NSTEMI type 2) History of present illness: Patient is a 50 y/o incarcerated male with a PMHx of HTN and Obesity Hypoventilation Syndrome who presented to the ED with a complaint of dyspnea x 1 week. Patient reports that on 12/14 he received the [employer] Covid vaccine and that 2 days later he developed symptoms. He reports developing SOB, fatigue, weakness, chills, diarrhea, bodyaches, and a cough. Patient reports that over the course of several days his symptoms progressively worsened. He reports that during this time he also tested Positive for COVID-19. Patient was seen medical staff at the care home who found the patient to have a low O2 and in respiratory distress. The patient was then sent to [facility]. 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 At time of interview patient is completely chest pain free. In ED patient was found to have Leukocytosis with WBC 20.1, troponins 0.1, BNP 6191, and d-dimer >41174. Cardiology is consulted for NSTEMI type 2. Patient is previously unknown to our practice. Past History Past Medical History: heart failure, hypertension, other (See HPI) Past Surgical History: No surgical history, Other (Reviewed) Social history: single. denies: smoking, alcohol abuse Family history: diabetes, hypertension Medications and Allergies Allergies Allergy/AdvReac Type Severity Reaction Status Date / Time No Known Allergies Allergy Verified 12/21/20 05:36 Home Medications Medication Instructions Recorded Confirmed Last Taken Type Losartan [Cozaar] 50 mg PO QDAY 12/20/20 12/20/20 12/20/20 07:00 History 50 Active Meds: Active Medications Acetaminophen (Acetaminophen 325 Mg Tab) 650 mg PO Q4H PRN PRN Reason: Pain MILD(1-3)/Fever >100.5/KWON Ascorbic Acid (Ascorbic Acid 500 Mg Tab) 500 mg PO BID [facility] Last Admin: 12/21/20 11:44 Dose: 500 mg Documented by: Cholecalciferol (Cholecalciferol (Vit D3) 1000 Unit (25 Mcg) Tab) 1,000 unit PO QDAY [facility] Last Admin: 12/21/20 11:44 Dose: 1,000 unit Documented by: Enoxaparin Sodium (Enoxaparin 150 Mg/1 Ml Inj) 150 mg SUB-Q Q12HR [facility] Furosemide (Furosemide 40 Mg/4 Ml Inj) 40 mg IV QDAY [facility] Stop: 12/23/20 10:01 Last Admin: 12/21/20 11:53 Dose: 40 mg Documented by: Hydromorphone HCl (Hydromorphone 1 Mg/1 Ml Inj) 0.5 mg IV Q23H PRN PRN Reason: Pain , Severe (7-10) Ceftriaxone Sodium (Rocephin/Ns 2 Gm/100 Ml) 2 gm in 100 mls @ 200 mls/hr IV Q24H [facility]; Protocol Stop: 12/25/20 03:59 Last Admin: 12/21/20 02:11 Dose: 200 mls/hr Documented by: Azithromycin (Zithromax/Ns) 500 mg in 250 mls @ 250 mls/hr IV Q24H [facility]; Protocol Stop: 12/24/20 12:59 Last Admin: 12/21/20 11:54 Dose: 250 mls/hr Documented by: REMDESIVIR 200 mg/ Sodium (Chloride) 250 mls @ 500 mls/hr IV ONCE ONE Stop: 12/21/20 13:03 REMDESIVIR 100 mg/ Sodium (Chloride) 250 mls @ 500 mls/hr IV Q24HR@2100 [facility] Stop: 12/25/20 21:29 Methylprednisolone Sodium Succinate (Methylprednisolone Sod Succinate 125 Mg/2 Ml Inj) 80 mg IV Q8HR [facility] Last Admin: 12/21/20 11:53 Dose: 80 mg Documented by: Metoprolol Tartrate (Metoprolol Tartrate 50 Mg Tab) 50 mg PO BID [facility] Ondansetron HCl (Ondansetron 4 Mg/2 Ml Inj) 4 mg IV Q8H PRN PRN Reason: Nausea And Vomiting Oxycodone/Acetaminophen (Oxycodone /Acetaminophen 5-325mg Tab) 1 tab PO Q12H PRN PRN Reason: Pain, Moderate (4-6) Last Admin: 12/20/20 21:59 Dose: 1 tab Documented by: Sodium Chloride (Sodium Chloride 0.9% 10 Ml Flush Syringe) 10 ml IV BID [facility] Last Admin: 12/21/20 11:44 Dose: 10 ml Documented by: Sodium Chloride (Sodium Chloride 0.9% 10 Ml Flush Syringe) 10 ml IV PRN PRN PRN Reason: LINE FLUSH Sodium Chloride (Sodium Chloride 0.9% 50 Ml Ivpb) 50 ml IV Q24HR@2100 [facility] Stop: 12/25/20 21:01 Zinc Sulfate (Zinc Sulfate 220 Mg Cap) 220 mg PO BID [facility] Last Admin: 12/21/20 11:44 Dose: 220 mg Documented by: Review of Systems All systems: negative Constitutional: fever, chills, weakness, malaise, no weight loss, no weight gain Ears, nose, mouth and throat: no nasal congestion, no nasal discharge, no sinus pressure, no sinus pain Cardiovascular: chest pain, lightheadedness, shortness of breath, dyspnea on exertion Respiratory: cough, shortness of breath, dyspnea on exertion Gastrointestinal: nausea, vomiting, diarrhea Musculoskeletal: no neck stiffness, no neck pain Integumentary: no rash, no pruritis, no redness Neurological: no head injury, no transient paralysis, no paralysis, no weakness Psychiatric: no anxiety, no memory loss Endocrine: no cold intolerance, no heat intolerance Hematologic/Lymphatic: no easy bruising, no easy bleeding Physical Examination Vital Signs Pulse Ox 91 12/20/20 11:34 General appearance: no acute distress HEENT: Positive: PERRL Neck: Positive: trachea midline Cardiac: Positive: Reg Rate and Rhythm Lungs: Positive: Wheezes Neuro: Positive: Grossly Intact Abdomen: Positive: Soft, Active Bowel Sounds Skin: Negative: Rash, Suspicious Lesions, Ulceration Extremities: Present: upper extr. pulses, lower extr. pulses. Absent: edema Results 12/21/20 06:10 12/21/20 13:29 Cardiac Enzymes 12/21/20 Range/Units 13:29 AST 21 (5-40) units/L CBC 12/21/20 Range/Units 06:10 WBC 20.1 H (4.5-11.0) K/mm3 RBC 5.55 H (3.65-5.03) M/mm3 Hgb 15.4 H (11.8-15.2) gm/dl Hct 47.3 H (35.5-45.6) % Plt Count 164 (140-440) K/mm3 Comprehensive Metabolic Panel 12/21/20 12/21/20 Range/Units 06:10 13:29 Sodium 136 L 134 L (137-145) mmol/L Potassium 4.5 4.8 (3.6-5.0) mmol/L Chloride 99.0 99.6 (98-107) mmol/L Carbon Dioxide 23 23 (22-30) mmol/L BUN 57 H 57 H (9-20) mg/dL Creatinine 1.8 H 1.8 H (0.8-1.3) mg/dL Glucose 193 H 340 H (75-100) mg/dL Calcium 8.5 8.3 L (8.4-10.2) mg/dL AST 21 (5-40) units/L ALT 23 (7-56) units/L Alkaline Phosphatase 52 (35-129) units/L Total Protein 7.3 (6.3-8.2) g/dL Albumin 3.3 L (3.9-5) g/dL - Imaging and Cardiology Echo: pending EKG interpretations - Telemetry EKG Rhythm: Sinus Tachycardia - EKG Sinus rhythms and dysrhythmias: sinus tachycardia Assessment and Plan Patient is a 50 y/o incarcerated male with a PMHx of HTN and Obesity Hypoventilation Syndrome Acute hypoxic respiratory failure COVID-19 PUI Sepsis Elevated D-dimer * Patient reports testing positive for CVODI-19. Patient currently on highfow NC * ID and Pulmonology following * VQ scan pending * Covid PCR pending NAVJOT * Nephrology following NSTEMI type 2 HTN * EKG show sinus tach 103no acute ischemic changes. Trops 0.1 in setting of sepsis secondary to suspected COVID-19 infection * Echo pending * Patient on Valsartan at home. In setting of NAVJOT will hold Plan: Echo pending. Trend troponins. No acute ischemic changes on EKG and patient currently chest pain free with pain associated only with cough. Likely not of cardiac origin. Anticoagualtion per ID recs and COVID protocols. Initiate metoprolol 50mg PO BID Patient seen in conjunction with Dr. Borrero who agrees with this plan of care. Will continue to follow - Patient Problems (1) NAVJOT (acute kidney injury) Current Visit: Yes Status: Acute (2) Acute respiratory failure with hypoxia Current Visit: Yes Status: Acute (3) Coronavirus infection Current Visit: Yes Status: Acute (4) DVT prophylaxis Current Visit: Yes Status: Acute (5) Elevated troponin Current Visit: Yes Status: Acute (6) Obesity hypoventilation syndrome Current Visit: Yes Status: Acute
[2020-12-21] MEDS ORDERED: REMDESIVIR 200 MG in SODIUM CHLORIDE 0.9% 250ML 250 ML IV SCH (17:00)
[2020-12-21] MEDS ORDERED: SODIUM CHLORIDE 0.9% 50 ML IVPB IV ONE (17:30)
[2020-12-21] MEDS: METOPROLOL TARTRATE 50 MG TAB PO SCH ×2 (18:53→22:31)
[2020-12-21] MEDS ORDERED: ENOXAPARIN 100 MG/1 ML INJ SUB-Q SCH (22:00)
[2020-12-21] MEDS: ENOXAPARIN 150 MG/1 ML INJ SUB-Q SCH (23:12)
[2020-12-22] MEDS: cefTRIAXone/NS 2 GM/100 ML 2 GM/100 ML BAG IV SCH ×2 (04:54→23:49)
[2020-12-22] MEDS: methylPREDNISolone Sod Succinate 125 MG/2 ML INJ IV SCH ×3 (05:57→22:10)
[2020-12-22 06:20] LABS: Hematocrit 44.4 % (35.5-45.6); Hemoglobin 14.4 gm/dl (11.8-15.2); Mean Corpuscular HGB Conc 33 % (32-34); Mean Corpuscular Volume 85 fl (84-94); Platelet Count 145 K/mm3 (140-440); Red Blood Count 5.22 M/mm3 (3.65-5.03); Red Cell Distribution Width 14.3 % (13.2-15.2)
[2020-12-22 06:40] LABS: Albumin 3.4 g/dL (3.9-5); Calcium 8.4 mg/dL (8.4-10.2)
[2020-12-22] MEDS: CHOLECALCIFEROL (VIT D3) 1000 UNIT (25 mcg) TAB PO SCH (09:00)
[2020-12-22] MEDS: FUROSEMIDE 40 MG/4 ML INJ IV SCH (09:00)
[2020-12-22] MEDS: ZINC SULFATE 220 MG CAP PO SCH ×2 (09:00→22:11)
[2020-12-22] MEDS: ASCORBIC ACID 500 MG TAB PO SCH ×2 (09:00→22:11)
[2020-12-22] MEDS: METOPROLOL TARTRATE 50 MG TAB PO SCH ×2 (09:01→22:11)
--- NOTE | 2020-12-22 10:40 | Progress Note ---
Assessment and Plan Assessment and plan: 50 YO Male with HTN, CHF, Obesity Hypoventilation Syndrome, Medication Noncompliance, Coronivirus Infection Diagnosed 1week ago presents to ED for evaluation. Patient reports "I cannot breathe". Patient states that he has experienced fatigue, shortness of breath, dry cough, decreased exercise tolerance, diminished sense of smell, diminished sense of taste over the past 1 week with persistent and worsening symptoms over the same timeframe. Patient is currently incarcerated and was seen by medical staff at the [facility] and was found to have a pulse oximetry in the 60s this a.m. EMS was notified and upon arrival the patient was found to be in respiratory distress and placed on supplemental oxygen via nonrebreather mask and subsequently transported to [facility] for further care and evaluation of the aforementioned symptoms. The patient was seen and evaluated in the emergency department. All lab and imaging studies reviewed. The patient was found to have a pulse oximetry of 78% on nonrebreathe r mask which is consistent with acute hypoxemic respiratory failure. Chest x- ray revealed bilateral pneumonia. The patient was admitted to medical floor and initiated on pneumonia protocol as well as coronavirus protocol. The patient was placed on high flow supplemental oxygen in the emergency department. Patient denies fever, chills, chest pain, palpitations, skin rash, recent ill contacts, unilateral leg swelling, calf pain, individual/family history of DVT/PE/bleeding/blood clotting disorders. No prior admission for review. No medication listed at time of admission for reconciliation. VQ scan ordered at time of admission and is currently pending. (1) Acute respiratory failure with hypoxia Current Visit: Yes Status: Acute Plan to address problem: Chest x-ray, VQ scan, high flow supplemental oxygen, pulse oximetry, will consider noninvasive positive pressure ventilation if patient is unable to maintain pulse oximetry on high flow supplemental oxygen. Pulmonary team consulted. (2) Coronavirus infection Current Visit: Yes Status: Acute Plan to address problem: Coronavirus protocol: IV steroid therapy, IV antibiotic therapy, supplemental oxygen, pulse oximetry, contact precautions, isolation precautions, vitamin C therapy, vitamin D therapy, zinc therapy, prophylactic anticoagulation. (3) Obesity hypoventilation syndrome Current Visit: Yes Status: Acute Plan to address problem: Balanced diet, increase physical activity discharge, outpatient pulmonary follow-up for sleep study. (4) Pneumonia Current Visit: Yes Status: Acute Plan to address problem: Pneumonia protocol: Chest x-ray, CBC, CMP, supplemental oxygen, pulse oximetry, nebulizer therapy, blood culture. (5) stable congestive heart failure (6) Acute kidney failure with vasomotor nephropathy (7) DVT prophylaxis Current Visit: Yes Status: Acute Plan to address problem: SCDs bilateral lower extremities while in bed, prophylactic anticoagulation (8) Advance care planning Current Visit: Yes Status: Acute Plan to address problem: Disease education conducted, care plan discussed, diagnoses discussed, prognosis discussed, patient counseled regarding coronavirus vaccination within 90 days of discharge. Patient is full code, +30 minutes. 12/21: Continue supportive care, wean oxygen as tolerated, Pulmonary, Nephrology, ID input. Renal improving. Continue steroids, defer Remedesivir to the ID. CPAP at night due to CARINA 12/22: Patient remains persistently hypoxic, going to be moving the patient down to the IMCU as he is satting 86% on nonrebreather and also high flow. Prognosis very poor. cct 35mins. History Interval history: Patient seen and examined remains 100% of Vapotherm and nonrebreather due to persistent hypoxia. Still reports shortness of breath Hospitalist Physical - Physical exam Narrative exam: VITAL SIGNS: Reviewed. GENERAL: The patient appears normally developed, morbidly obese on high flow and NRBM, vital signs as documented. HEAD: No signs of head trauma. EYES: Pupils are equal. Extraocular motions intact. EARS: Hearing grossly intact. MOUTH: Oropharynx is normal. NECK: No adenopathy, no JVD. CHEST: Chest with diminished breath sounds bilaterally. No wheezes, rales, or rhonchi. CARDIAC: Regular rate and rhythm. S1 and S2, without murmurs, gallops, or rubs. VASCULAR: No Edema. Peripheral pulses normal and equal in all extremities. ABDOMEN: Soft, non tender and non distended. No rebound or guarding, and no masses palpated. Bowel Sounds normal. MUSCULOSKELETAL: Good range of motion of all major joints. Extremities without clubbing, cyanosis or edema. NEUROLOGIC EXAM: Alert and oriented x 3 No focal sensory or strength deficits. Speech normal. Follows commands. PSYCHIATRIC: Mood normal. SKIN: detail exam as documented in skin assessment - Constitutional Vitals: Temp Pulse Resp BP Pulse Ox 98.9 F 94 H 24 143/83 89 12/22/20 06:09 12/22/20 06:09 12/22/20 06:09 12/22/20 06:09 12/22/20 08:12 General appearance: Present: no acute distress HEART Score - HEART Score Troponin: Troponin T < 0.010 ng/mL (0.00-0.029) 12/21/20 18:26 Results - Labs CBC & Chem 7: 12/22/20 05:56 12/22/20 05:56 Labs: Laboratory Last Values WBC 26.6 K/mm3 (4.5-11.0) H 12/22/20 05:56 RBC 5.22 M/mm3 (3.65-5.03) H 12/22/20 05:56 Hgb 14.4 gm/dl (11.8-15.2) 12/22/20 05:56 Hct 44.4 % (35.5-45.6) 12/22/20 05:56 MCV 85 fl (84-94) 12/22/20 05:56 MCH 28 pg (28-32) 12/22/20 05:56 MCHC 33 % (32-34) 12/22/20 05:56 RDW 14.3 % (13.2-15.2) 12/22/20 05:56 Plt Count 145 K/mm3 (140-440) 12/22/20 05:56 Add Manual Diff Complete 12/21/20 06:10 Total Counted 100 12/21/20 06:10 Seg Neuts % (Manual) 89.0 % (40.0-70.0) H 12/21/20 06:10 Band Neutrophils % 3.0 % 12/21/20 06:10 Lymphocytes % (Manual) 5.0 % (13.4-35.0) L 12/20/20 11:31 Reactive Lymphs % (Man) 2.0 % 12/21/20 06:10 Monocytes % (Manual) 1.0 % (0.0-7.3) 12/21/20 06:10 Myelocytes % 4.0 % 12/21/20 06:10 Blast Cells % 1.0 % 12/21/20 06:10 Nucleated RBC % 1.0 % (0.0-0.9) H 12/21/20 06:10 Seg Neutrophils # Man 17.9 K/mm3 (1.8-7.7) H 12/21/20 06:10 Band Neutrophils # 0.6 K/mm3 12/21/20 06:10 Lymphocytes # (Manual) 0.0 K/mm3 (1.2-5.4) L 12/21/20 06:10 Abs React Lymphs (Man) 0.4 K/mm3 12/21/20 06:10 Monocytes # (Manual) 0.2 K/mm3 (0.0-0.8) 12/21/20 06:10 Eosinophils # (Manual) 0.0 K/mm3 (0.0-0.4) 12/21/20 06:10 Basophils # (Manual) 0.0 K/mm3 (0.0-0.1) 12/21/20 06:10 Metamyelocytes # 0.0 K/mm3 12/21/20 06:10 Myelocytes # 0.8 K/mm3 12/21/20 06:10 Promyelocytes # 0.0 K/mm3 12/21/20 06:10 Blast Cells # 0.1 K/mm3 12/21/20 06:10 WBC Morphology Not Reportable 12/21/20 06:10 Hypersegmented Neuts Not Reportable 12/21/20 06:10 Hyposegmented Neuts Not Reportable 12/21/20 06:10 Hypogranular Neuts Not Reportable 12/21/20 06:10 Smudge Cells Not Reportable 12/21/20 06:10 Toxic Granulation Not Reportable 12/21/20 06:10 Toxic Vacuolation Not Reportable 12/21/20 06:10 Dohle Bodies Not Reportable 12/21/20 06:10 Pelger-Huet Anomaly Not Reportable 12/21/20 06:10 Chantel Rods Not Reportable 12/21/20 06:10 Platelet Estimate Consistent w auto 12/21/20 06:10 Clumped Platelets Not Reportable 12/21/20 06:10 Plt Clumps, EDTA Not Reportable 12/21/20 06:10 Large Platelets Not Reportable 12/21/20 06:10 Giant Platelets Not Reportable 12/21/20 06:10 Platelet Satelliting Not Reportable 12/21/20 06:10 Plt Morphology Comment Not Reportable 12/21/20 06:10 RBC Morphology Not Reportable 12/21/20 06:10 Dimorphic RBCs Not Reportable 12/21/20 06:10 Polychromasia Not Reportable 12/21/20 06:10 Hypochromasia Not Reportable 12/21/20 06:10 Poikilocytosis Not Reportable 12/21/20 06:10 Anisocytosis Not Reportable 12/21/20 06:10 Microcytosis Not Reportable 12/21/20 06:10 Macrocytosis Not Reportable 12/21/20 06:10 Spherocytes Rare 12/21/20 06:10 Pappenheimer Bodies Not Reportable 12/21/20 06:10 Sickle Cells Not Reportable 12/21/20 06:10 Target Cells Rare 12/21/20 06:10 Tear Drop Cells Not Reportable 12/21/20 06:10 Ovalocytes Not Reportable 12/21/20 06:10 Helmet Cells Not Reportable 12/21/20 06:10 Torres-M[place]annon Bodies Not Reportable 12/21/20 06:10 [place] Rings Not Reportable 12/21/20 06:10 Chaparro Cells Not Reportable 12/21/20 06:10 Bite Cells Not Reportable 12/21/20 06:10 Crenated Cell Not Reportable 12/21/20 06:10 Elliptocytes Not Reportable 12/21/20 06:10 Acanthocytes (Spur) Not Reportable 12/21/20 06:10 Rouleaux Not Reportable 12/21/20 06:10 Hemoglobin C Crystals Not Reportable 12/21/20 06:10 Schistocytes Not Reportable 12/21/20 06:10 Malaria parasites Not Reportable 12/21/20 06:10 Andrew Bodies Not Reportable 12/21/20 06:10 Hem Pathologist Commnt No 12/21/20 06:10 D-Dimer > 96836 ng/mlDDU (0-234) H 12/20/20 11:31 Sodium 139 mmol/L (137-145) 12/22/20 05:56 Potassium 4.9 mmol/L (3.6-5.0) 12/22/20 05:56 Chloride 104.8 mmol/L (98-107) 12/22/20 05:56 Carbon Dioxide 23 mmol/L (22-30) 12/22/20 05:56 Anion Gap 16 mmol/L 12/22/20 05:56 BUN 64 mg/dL (9-20) H 12/22/20 05:56 Creatinine 2.0 mg/dL (0.8-1.3) H 12/22/20 05:56 Estimated GFR 43 ml/min 12/22/20 05:56 BUN/Creatinine Ratio 32 % 12/22/20 05:56 Glucose 227 mg/dL (75-100) H 12/22/20 05:56 Calcium 8.4 mg/dL (8.4-10.2) 12/22/20 05:56 Total Bilirubin 0.60 mg/dL (0.1-1.2) 12/22/20 05:56 AST 37 units/L (5-40) 12/22/20 05:56 ALT 44 units/L (7-56) 12/22/20 05:56 Alkaline Phosphatase 54 units/L (35-129) 12/22/20 05:56 Lactate Dehydrogenase 10 units/L (91-180) L 12/20/20 11:31 Troponin T < 0.010 ng/mL (0.00-0.029) 12/21/20 18:26 C-Reactive Protein 5.20 mg/dL (0.00-1.30) H 12/20/20 11:31 NT-Pro-B Natriuret Pep 6191 pg/mL (0-900) H 12/21/20 14:32 Total Protein 7.6 g/dL (6.3-8.2) 12/22/20 05:56 Albumin 3.4 g/dL (3.9-5) L 12/22/20 05:56 Albumin/Globulin Ratio 0.8 % 12/22/20 05:56 Triglycerides 226 mg/dL (2-149) H 12/20/20 11:31 Cholesterol 175 mg/dL (50-199) 12/20/20 11:31 LDL Cholesterol Direct 98 mg/dL (50-130) 12/20/20 11:31 HDL Cholesterol 31 mg/dL (40-59) L 12/20/20 11:31 Cholesterol/HDL Ratio 5.64 % 12/20/20 11:31 Procalcitonin 1.45 ng/mL (<0.15) 12/20/20 11:31 Coronavirus (PCR) Positive (Negative) A 12/21/20 Unknown Murray/IV: Voiding Method Urinal Active Medications - Current Medications Current Medications: Generic Name Dose Route Start Last Admin Trade Name Freq PRN Reason Stop Dose Admin Acetaminophen 650 mg 12/20/20 12:52 Acetaminophen 325 Mg Tab PO Q4H PRN Pain MILD(1-3)/Fever >100.5/KWON Ascorbic Acid 500 mg 12/20/20 22:00 12/22/20 09:00 Ascorbic Acid 500 Mg Tab PO 500 mg BID GUSTAVO Administration Cholecalciferol 1,000 unit 12/21/20 10:00 12/22/20 09:00 Cholecalciferol (Vit D3) 1000 Unit (25 Mcg) Tab PO 1,000 unit QDAY GUSTAVO Administration Enoxaparin Sodium 150 mg 12/21/20 22:00 12/21/20 23:12 Enoxaparin 150 Mg/1 Ml Inj SUB-Q 150 mg Q12HR GUSTAVO Administration Hydromorphone HCl 0.5 mg 12/20/20 12:52 Hydromorphone 1 Mg/1 Ml Inj IV Q23H PRN Pain , Severe (7-10) Ceftriaxone Sodium 2 gm in 100 mls @ 200 mls/hr 12/21/20 00:00 12/22/20 04:54 Rocephin/Ns 2 Gm/100 Ml IV 12/25/20 03:59 200 mls/hr Q24H GUSTAVO Administration Protocol Azithromycin 500 mg in 250 mls @ 250 mls/hr 12/21/20 12:00 12/21/20 11:54 Zithromax/Ns IV 12/24/20 12:59 250 mls/hr Q24H GUSTAVO Administration Protocol REMDESIVIR 100 mg/ Sodium 250 mls @ 500 mls/hr 12/22/20 21:00 Chloride IV 12/25/20 21:29 Q24HR@2100 GUSTAVO Methylprednisolone Sodium Succinate 80 mg 12/21/20 12:00 12/22/20 05:57 Methylprednisolone Sod Succinate 125 Mg/2 Ml Inj IV 80 mg Q8HR GUSTAVO Administration Metoprolol Tartrate 50 mg 12/21/20 16:00 12/22/20 09:01 Metoprolol Tartrate 50 Mg Tab PO 50 mg BID GUSTAVO Administration Ondansetron HCl 4 mg 12/20/20 12:52 Ondansetron 4 Mg/2 Ml Inj IV Q8H PRN Nausea And Vomiting Oxycodone/Acetaminophen 1 tab 12/20/20 12:52 12/20/20 21:59 Oxycodone /Acetaminophen 5-325mg Tab PO 1 tab Q12H PRN Administration Pain, Moderate (4-6) Sodium Chloride 10 ml 12/20/20 22:00 12/22/20 09:02 Sodium Chloride 0.9% 10 Ml Flush Syringe IV 10 ml BID GUSTAVO Administration Sodium Chloride 10 ml 12/20/20 12:52 Sodium Chloride 0.9% 10 Ml Flush Syringe IV PRN PRN LINE FLUSH Sodium Chloride 50 ml 12/22/20 21:00 Sodium Chloride 0.9% 50 Ml Ivpb IV 12/25/20 21:01 Q24HR@2100 GUSTAVO Zinc Sulfate 220 mg 12/20/20 22:00 12/22/20 09:00 Zinc Sulfate 220 Mg Cap PO 220 mg BID GUSTAVO Administration
--- NOTE | 2020-12-22 12:37 | Progress Note ---
Assessment and Plan Acute Hypoxic Respiratory Failure / Sepsis // COVID-19 PNA -Mgmt per Primary teams Elevated D-Dimer -VQ scan pending -Anticoagulation per Primary/ID Pleuritic Chest Pain NSTEMI Type 2 -In the setting of hypoxia -Echo findings reviewed - EF 50-55%, mild diastolic dysfxn, no significant valvular abnormalities -Ischemic workup may be considered as an outpatient upon resolution of COVID-19 PNA HFpEF -May benefit from addition of gentle IV diuresis if ok from a Nephro standpoint NAVJOT -Nephro following HTN -Home Valsartan held in the setting of NAVJOT -Continue PO Lopressor 50mg BID Obesity / OHS Pt seen in conjunction with Dr. Borrero, who agrees with the assessment and plan of care. - Patient Problems (1) Acute respiratory failure with hypoxia Current Visit: Yes Status: Acute (2) Pneumonia due to COVID-19 virus Current Visit: Yes Status: Acute (3) Elevated d-dimer Current Visit: Yes Status: Acute (4) Pleuritic chest pain Current Visit: Yes Status: Acute (5) NSTEMI (non-ST elevated myocardial infarction) Current Visit: Yes Status: Acute (6) NAVJOT (acute kidney injury) Current Visit: Yes Status: Acute Subjective Date of service: 12/22/20 Principal diagnosis: COVID-19 PNA Interval history: Transferred to IMCU due to worsening respiratory status. BP stable. Tele reviewed - SR 90-100s, no events. Objective Last Vital Signs Temp 98.9 F 12/22/20 06:09 Pulse 94 H 12/22/20 06:09 Resp 41 H 12/22/20 11:46 BP 143/83 12/22/20 06:09 Pulse Ox 88 12/22/20 14:02 - Labs and Meds Cardiac Enzymes 12/21/20 12/22/20 Range/Units 13:29 05:56 AST 21 37 (5-40) units/L CBC 12/22/20 Range/Units 05:56 WBC 26.6 H (4.5-11.0) K/mm3 RBC 5.22 H (3.65-5.03) M/mm3 Hgb 14.4 (11.8-15.2) gm/dl Hct 44.4 (35.5-45.6) % Plt Count 145 (140-440) K/mm3 Comprehensive Metabolic Panel 12/21/20 12/22/20 Range/Units 13:29 05:56 Sodium 134 L 139 (137-145) mmol/L Potassium 4.8 4.9 (3.6-5.0) mmol/L Chloride 99.6 104.8 (98-107) mmol/L Carbon Dioxide 23 23 (22-30) mmol/L BUN 57 H 64 H (9-20) mg/dL Creatinine 1.8 H 2.0 H (0.8-1.3) mg/dL Glucose 340 H 227 H (75-100) mg/dL Calcium 8.3 L 8.4 (8.4-10.2) mg/dL AST 21 37 (5-40) units/L ALT 23 44 (7-56) units/L Alkaline Phosphatase 52 54 (35-129) units/L Total Protein 7.3 7.6 (6.3-8.2) g/dL Albumin 3.3 L 3.4 L (3.9-5) g/dL - Imaging and Cardiology EKG: report reviewed, image reviewed Echo: report reviewed - Telemetry EKG Rhythm: Sinus Rhythm - EKG Sinus rhythms and dysrhythmias: sinus tachycardia - Allied health notes Allied health notes reviewed: nursing
--- NOTE | 2020-12-22 12:57 | Progress Note ---
Assessment and Plan Cultures: SARS CoV2 PCR: positive A/P: 50/M with HTN, CHF, non-compliance, currently incarcerated admitted to the hospital with: #Sepsis, secondary to bilateral pneumonia due to COVID-19: severe disease. Procalcitonin 1.45, D-dimer >10,000, CRP 5.2. #Acute hypoxic respiratory failure: #NAVJOT: Renally dose antibiotics. #Morbid obesity Recs: continue Remdesivir D2 of 5 Continue empiric antibiotics x 5 days continue on steroids (solumedrol) x 10 days Does not meet hospital criteria for Actemra based on CRP Follow-up VQ scan when feasible due to elevated D-dimer and NAVJOT. On anticoagulation Poor prognosis Julián Arce MD, FACP [facility] ([facility] O: [phone] F: [phone] Subjective Date of service: 12/22/20 Principal diagnosis: COVID-19 PNA Interval history: Moved to [facility] due to hypoxia. Afebrile. COVID-19 PCR came back positive. Objective - Exam Narrative Exam: Physical Exam (reviewed in chart to minimize risk of transmission) Constitutional: deferred Head, Ears, Nose: deferred Eyes: deferred Neck: deferred Oral: deferred Cardiovascular: deferred Respiratory: deferred GI: deferred Musculoskeletal: deferred Skin: deferred Hem/Lymphatic: deferred Psych: deferred Neurological: deferred - Constitutional Vitals: Vital Signs Temp Pulse Resp BP Pulse Ox 98.9 F 94 H 41 H 143/83 87 12/22/20 06:09 12/22/20 06:09 12/22/20 11:46 12/22/20 06:09 12/22/20 10:00 Temperature -Last 24 Hours Temperature 98.9 F Temperature 99.0 F Temperature 98.5 F - Labs CBC & Chem 7: 12/22/20 05:56 12/22/20 05:56 Labs: Abnormal lab results 12/21/20 12/21/20 12/21/20 Range/Units 13:29 14:32 Unknown WBC (4.5-11.0) K/mm3 RBC (3.65-5.03) M/mm3 Sodium 134 L (137-145) mmol/L BUN 57 H (9-20) mg/dL Creatinine 1.8 H (0.8-1.3) mg/dL Glucose 340 H (75-100) mg/dL Calcium 8.3 L (8.4-10.2) mg/dL NT-Pro-B Natriuret Pep 6191 H (0-900) pg/mL Albumin 3.3 L (3.9-5) g/dL Coronavirus (PCR) Positive A (Negative) 12/22/20 12/22/20 Range/Units 05:56 05:56 WBC 26.6 H (4.5-11.0) K/mm3 RBC 5.22 H (3.65-5.03) M/mm3 Sodium (137-145) mmol/L BUN 64 H (9-20) mg/dL Creatinine 2.0 H (0.8-1.3) mg/dL Glucose 227 H (75-100) mg/dL Calcium (8.4-10.2) mg/dL NT-Pro-B Natriuret Pep (0-900) pg/mL Albumin 3.4 L (3.9-5) g/dL Coronavirus (PCR) (Negative)
[2020-12-22] MEDS: ENOXAPARIN 150 MG/1 ML INJ SUB-Q SCH ×2 (13:34→22:10)
[2020-12-22] MEDS: AZITHROMYCIN/NS 500 MG/250 ML 500 MG/250 ML BAG IV SCH (13:34)
--- NOTE | 2020-12-22 13:36 | Progress Note ---
Assessment and Plan 50 y/o obese male, COVID positive admitted with acute hypoxic respiratory failure, renal failure and elevated D-Dimer 1.Bipap support with hopes of weaning to HFNC 2. Diuresis 3. Steroids 4. Remdesivir 5. Guarded prognosis Subjective Date of service: 12/22/20 Principal diagnosis: COVID-19 PNA Interval history: Transferred to [facility] this am Objective Vital Signs - 12hr 12/22/20 12/22/20 12/22/20 02:38 06:09 08:12 Temperature 98.9 F Pulse Rate 94 H Respiratory 20 24 Rate Blood Pressure 143/83 O2 Sat by Pulse 90 82 L 89 Oximetry 12/22/20 12/22/20 10:00 11:46 Temperature Pulse Rate Respiratory 41 H Rate Blood Pressure O2 Sat by Pulse 87 Oximetry CBC and BMP: 12/27/20 04:46 12/27/20 04:46 ABG, PT/INR, D-dimer: PT/INR, D-dimer D-Dimer > 91321 ng/mlDDU (0-234) H 12/20/20 11:31 Abnormal lab findings: Abnormal Labs 12/20/20 12/20/20 12/20/20 11:31 11:31 11:31 WBC 16.5 H RBC 5.27 H Hgb Hct Seg Neuts % (Manual) 90.0 H Lymphocytes % (Manual) 5.0 L Nucleated RBC % Seg Neutrophils # Man 14.9 H Lymphocytes # (Manual) 0.8 L D-Dimer > 52500 H Sodium 130 L Chloride 94.5 L BUN 64 H Creatinine 2.6 H Glucose 154 H Calcium Lactate Dehydrogenase Troponin T C-Reactive Protein NT-Pro-B Natriuret Pep Albumin 3.5 L Triglycerides HDL Cholesterol Coronavirus (PCR) 12/20/20 12/21/20 12/21/20 11:31 06:10 06:10 WBC 20.1 H RBC 5.55 H Hgb 15.4 H Hct 47.3 H Seg Neuts % (Manual) 89.0 H Lymphocytes % (Manual) Nucleated RBC % 1.0 H Seg Neutrophils # Man 17.9 H Lymphocytes # (Manual) 0.0 L D-Dimer Sodium 136 L Chloride BUN 57 H Creatinine 1.8 H Glucose 193 H Calcium Lactate Dehydrogenase 10 L Troponin T 0.106 H* C-Reactive Protein 5.20 H NT-Pro-B Natriuret Pep Albumin Triglycerides 226 H HDL Cholesterol 31 L Coronavirus (PCR) 12/21/20 12/21/20 12/21/20 13:29 14:32 Unknown WBC RBC Hgb Hct Seg Neuts % (Manual) Lymphocytes % (Manual) Nucleated RBC % Seg Neutrophils # Man Lymphocytes # (Manual) D-Dimer Sodium 134 L Chloride BUN 57 H Creatinine 1.8 H Glucose 340 H Calcium 8.3 L Lactate Dehydrogenase Troponin T C-Reactive Protein NT-Pro-B Natriuret Pep 6191 H Albumin 3.3 L Triglycerides HDL Cholesterol Coronavirus (PCR) Positive A 12/22/20 12/22/20 05:56 05:56 WBC 26.6 H RBC 5.22 H Hgb Hct Seg Neuts % (Manual) Lymphocytes % (Manual) Nucleated RBC % Seg Neutrophils # Man Lymphocytes # (Manual) D-Dimer Sodium Chloride BUN 64 H Creatinine 2.0 H Glucose 227 H Calcium Lactate Dehydrogenase Troponin T C-Reactive Protein NT-Pro-B Natriuret Pep Albumin 3.4 L Triglycerides HDL Cholesterol Coronavirus (PCR)
--- NOTE | 2020-12-22 13:54 | Progress Note ---
Assessment and Plan 1. Acute kidney injury: NAVJOT in the setting of Covid-19 infection and sepsis. Suspect ATN. Baseline renal function is unknown. Urine studies and Renal US ordered. Monitor renal function. Creatinine level is increasing. Avoid nephrotoxic agents. Meds dosage based on GFR. 2. FEN: Monitor lytes and volume status. 3. Acute hypoxic resp failure, POA: 2/ Covid-19 PNA. Test positive for Covid-19. Per pt he received J&J vaccine in Mar 2020. On NRB. Followed by Pulmonary. 4. Covid-19 PNA, POA: Test positive for Covid-19. Per pt he received J&J vaccine in Mar 2020. On Abx, Solumedrol and Remdesivir. Monitor. 5. Sepsis, POA: 04/26 Covid-19 pneumonia. Abx. Followed by ID. 6. HTN: Monitor BP. Adjust meds as needed. 7. Elevated bl glu: A1C ordered. Monitor. Subjective: Patient was seen and examined at the bedside. Pt moved to [facility]. Examination: General appearance: well-developed, appears stated age, obese, on BIPAP HEENT: atraumatic Neck: trachea midline Respiratory: coarse breath sounds Heart: S1S2, regular, no murmur Abdomen: soft, obese, bowel sounds heard, NT Integumentary: no rash Neurologic: somnolent Ext: no edema Subjective Date of service: 12/22/20 Principal diagnosis: COVID-19 PNA Objective - Vital Signs Vital signs: Vital Signs - 12hr 12/22/20 12/22/20 12/22/20 02:38 06:09 08:12 Temperature 98.9 F Pulse Rate 94 H Respiratory 20 24 Rate Blood Pressure 143/83 O2 Sat by Pulse 90 82 L 89 Oximetry 12/22/20 12/22/20 10:00 11:46 Temperature Pulse Rate Respiratory 41 H Rate Blood Pressure O2 Sat by Pulse 87 Oximetry - Lab 12/22/20 05:56 12/22/20 05:56 Most recent lab results Calcium 8.4 mg/dL (8.4-10.2) 12/22/20 05:56 Medications & Allergies - Medications Allergies/Adverse Reactions: Allergies No Known Allergies Allergy (Verified 12/21/20 05:36) Home Medications: Home Medications Medication Instructions Recorded Confirmed Last Taken Type Losartan [Cozaar] 50 mg PO QDAY 12/20/20 12/20/20 12/20/20 07:00 History 50 Active Medications: Generic Name Dose Route Start Last Admin Trade Name Freq PRN Reason Stop Dose Admin Acetaminophen 650 mg 12/20/20 12:52 Acetaminophen 325 Mg Tab PO Q4H PRN Pain MILD(1-3)/Fever >100.5/KWON Ascorbic Acid 500 mg 12/20/20 22:00 12/22/20 09:00 Ascorbic Acid 500 Mg Tab PO 500 mg BID GUSTAVO Administration Cholecalciferol 1,000 unit 12/21/20 10:00 12/22/20 09:00 Cholecalciferol (Vit D3) 1000 Unit (25 Mcg) Tab PO 1,000 unit QDAY GUSTAVO Administration Enoxaparin Sodium 150 mg 12/21/20 22:00 12/22/20 13:34 Enoxaparin 150 Mg/1 Ml Inj SUB-Q 150 mg Q12HR GUSTAVO Administration Hydromorphone HCl 0.5 mg 12/20/20 12:52 Hydromorphone 1 Mg/1 Ml Inj IV Q23H PRN Pain , Severe (7-10) Ceftriaxone Sodium 2 gm in 100 mls @ 200 mls/hr 12/21/20 00:00 12/22/20 04:54 Rocephin/Ns 2 Gm/100 Ml IV 12/25/20 03:59 200 mls/hr Q24H GUSTAVO Administration Protocol Azithromycin 500 mg in 250 mls @ 250 mls/hr 12/21/20 12:00 12/22/20 13:34 Zithromax/Ns IV 12/24/20 12:59 250 mls/hr Q24H GUSTAVO Administration Protocol REMDESIVIR 100 mg/ Sodium 250 mls @ 500 mls/hr 12/22/20 21:00 Chloride IV 12/25/20 21:29 Q24HR@2100 GUSTAVO Methylprednisolone Sodium Succinate 80 mg 12/21/20 12:00 12/22/20 13:33 Methylprednisolone Sod Succinate 125 Mg/2 Ml Inj IV 80 mg Q8HR GUSTAVO Administration Metoprolol Tartrate 50 mg 12/21/20 16:00 12/22/20 09:01 Metoprolol Tartrate 50 Mg Tab PO 50 mg BID GUSTAVO Administration Ondansetron HCl 4 mg 12/20/20 12:52 Ondansetron 4 Mg/2 Ml Inj IV Q8H PRN Nausea And Vomiting Oxycodone/Acetaminophen 1 tab 12/20/20 12:52 12/20/20 21:59 Oxycodone /Acetaminophen 5-325mg Tab PO 1 tab Q12H PRN Administration Pain, Moderate (4-6) Sodium Chloride 10 ml 12/20/20 22:00 12/22/20 09:02 Sodium Chloride 0.9% 10 Ml Flush Syringe IV 10 ml BID GUSTAVO Administration Sodium Chloride 10 ml 12/20/20 12:52 Sodium Chloride 0.9% 10 Ml Flush Syringe IV PRN PRN LINE FLUSH Sodium Chloride 50 ml 12/22/20 21:00 Sodium Chloride 0.9% 50 Ml Ivpb IV 12/25/20 21:01 Q24HR@2100 GUSTAVO Zinc Sulfate 220 mg 12/20/20 22:00 12/22/20 09:00 Zinc Sulfate 220 Mg Cap PO 220 mg BID GUSTAVO Administration
[2020-12-22] MEDS ORDERED: hydrALAZINE 20 MG/1 ML INJ IV PRN (17:56)
[2020-12-22] MEDS ORDERED: FUROSEMIDE 40 MG/4 ML INJ IV ONE (19:00)
[2020-12-22] MEDS: REMDESIVIR 100 MG in SODIUM CHLORIDE 0.9% 250ML 250 ML IV SCH (22:09)
[2020-12-22] MEDS: SODIUM CHLORIDE 0.9% 50 ML IVPB IV SCH (22:10)
[2020-12-22] MEDS: oxyCODONE /ACETAMINOPHEN 5-325MG TAB PO PRN (22:12)
[2020-12-23 03:14] LABS: Hyaline Casts,Urine 1 /LPF; Mucus,Urine FEW /HPF
[2020-12-23 03:17] LABS: Creatinine,Urine 134.1 mg/dL (0.1-20.0); Protein/Creatinine Ratio,Urine 0.37
[2020-12-23 03:29] LABS: Color,Urine Straw (Yellow)
[2020-12-23 03:30] LABS: Bilirubin,Urine Negative (Negative); Blood,Urine Negative (Negative); Urobilinogen,Urine < 2.0 mg/dL (<2.0)
[2020-12-23 06:35] LABS: Albumin 3.6 g/dL (3.9-5); Calcium 8.7 mg/dL (8.4-10.2)
[2020-12-23] MEDS: methylPREDNISolone Sod Succinate 125 MG/2 ML INJ IV SCH ×3 (07:16→21:56)
[2020-12-23] MEDS ORDERED: INSULIN REGULAR, HUMAN 100 UNITS/1 ML IV NR (08:00)
[2020-12-23] MEDS ORDERED: DEXTROSE 50% IN WATER (25GM) 50 ML SYRINGE IV NR (08:00)
[2020-12-23] MEDS ORDERED: SODIUM POLYSTYRENE 15 GM/60 ML ORAL LIQD PO NR (08:00)
--- NOTE | 2020-12-23 08:37 | Progress Note ---
Assessment and Plan 1. Acute kidney injury: NAVJOT in the setting of Covid-19 infection and sepsis. Suspect ATN. Baseline renal function is unknown. Low FeNa. Renal US negative. Monitor renal function. Creatinine level is slightly better today. Avoid nephrotoxic agents. Meds dosage based on GFR. 2. FEN: Monitor lytes and volume status. 3. Acute hypoxic resp failure, POA: 2/ Covid-19 PNA. Test positive for Covid-19. Per pt he received J&J vaccine in Mar 2020. On BIPAP. Followed by Pulmonary. 4. Covid-19 PNA, POA: Test positive for Covid-19. Per pt he received J&J vaccine in Mar 2020. On Abx, Solumedrol and Remdesivir. Monitor. 5. Sepsis, POA: 04/26 Covid-19 pneumonia. Abx. Followed by ID. 6. HTN: Monitor BP. Adjust meds as needed. 7. DM / Elevated bl glu: A1C 7.2. Monitor. Subjective: Patient was seen and examined at the bedside. Examination: General appearance: well-developed, appears stated age, obese, on BIPAP HEENT: atraumatic Neck: trachea midline Respiratory: coarse breath sounds Heart: S1S2, regular, no murmur Abdomen: soft, obese, bowel sounds heard, NT Integumentary: no rash Neurologic: somnolent Ext: no edema Subjective Date of service: 12/23/20 Principal diagnosis: COVID-19 PNA Objective - Vital Signs Vital signs: Vital Signs - 12hr 12/22/20 12/22/20 12/22/20 21:00 21:29 21:31 Temperature Pulse Rate 90 87 Respiratory 43 H 41 H Rate Blood Pressure 161/80 161/80 O2 Sat by Pulse 91 92 92 Oximetry 12/22/20 12/22/20 12/22/20 22:00 22:11 23:00 Temperature Pulse Rate 99 H 97 H 93 H Respiratory 32 H 38 H Rate Blood Pressure 159/110 159/110 154/87 O2 Sat by Pulse 78 L 94 Oximetry 12/22/20 12/23/20 12/23/20 23:12 00:00 00:30 Temperature Pulse Rate 76 76 Respiratory 38 H 38 H Rate Blood Pressure 135/78 O2 Sat by Pulse 93 Oximetry 12/23/20 12/23/20 12/23/20 01:00 02:00 03:00 Temperature Pulse Rate 82 78 90 Respiratory 36 H 38 H 27 H Rate Blood Pressure 124/86 122/77 122/77 O2 Sat by Pulse 91 97 91 Oximetry 12/23/20 12/23/20 12/23/20 04:00 05:00 06:00 Temperature Pulse Rate 81 84 80 Respiratory 37 H 40 H 39 H Rate Blood Pressure 143/89 153/86 134/74 O2 Sat by Pulse 96 94 90 Oximetry 12/23/20 12/23/20 12/23/20 07:00 08:00 08:23 Temperature 98.9 F Pulse Rate 86 Respiratory 31 H Rate Blood Pressure 133/83 O2 Sat by Pulse 93 98 Oximetry 12/23/20 08:25 Temperature Pulse Rate 86 Respiratory 37 H Rate Blood Pressure 142/86 O2 Sat by Pulse 96 Oximetry - Lab 12/22/20 05:56 12/23/20 05:15 Most recent lab results Calcium 8.7 mg/dL (8.4-10.2) 12/23/20 05:15 Urine Creatinine 134.1 mg/dL (0.1-20.0) H 12/23/20 00:40 Urine Sodium 26 mmol/L 12/23/20 00:40 Urine Total Protein 50 mg/dL (5-11.8) H 12/23/20 00:40 Medications & Allergies - Medications Allergies/Adverse Reactions: Allergies No Known Allergies Allergy (Verified 12/21/20 05:36) Home Medications: Home Medications Medication Instructions Recorded Confirmed Last Taken Type Losartan [Cozaar] 50 mg PO QDAY 12/20/20 12/20/20 12/20/20 07:00 History 50 Active Medications: Generic Name Dose Route Start Last Admin Trade Name Freq PRN Reason Stop Dose Admin Acetaminophen 650 mg 12/20/20 12:52 Acetaminophen 325 Mg Tab PO Q4H PRN Pain MILD(1-3)/Fever >100.5/KWON Ascorbic Acid 500 mg 12/20/20 22:00 12/22/20 22:11 Ascorbic Acid 500 Mg Tab PO 500 mg BID GUSTAVO Administration Cholecalciferol 1,000 unit 12/21/20 10:00 12/22/20 09:00 Cholecalciferol (Vit D3) 1000 Unit (25 Mcg) Tab PO 1,000 unit QDAY GUSTAVO Administration Dextrose 50 ml 12/23/20 08:00 Dextrose 50% In Water (25gm) 50 Ml Syringe IV 12/23/20 12:00 ONCE@0800 NR Protocol Enoxaparin Sodium 150 mg 12/21/20 22:00 12/22/20 22:10 Enoxaparin 150 Mg/1 Ml Inj SUB-Q 150 mg Q12HR GUSTAVO Administration Hydralazine HCl 10 mg 12/22/20 17:56 12/22/20 19:01 Hydralazine 20 Mg/1 Ml Inj IV 10 mg Q6H PRN Administration Hypertension Hydromorphone HCl 0.5 mg 12/20/20 12:52 Hydromorphone 1 Mg/1 Ml Inj IV Q23H PRN Pain , Severe (7-10) Ceftriaxone Sodium 2 gm in 100 mls @ 200 mls/hr 12/21/20 00:00 12/22/20 23:49 Rocephin/Ns 2 Gm/100 Ml IV 12/25/20 03:59 200 mls/hr Q24H GUSTAVO Administration Protocol Azithromycin 500 mg in 250 mls @ 250 mls/hr 12/21/20 12:00 12/22/20 13:34 Zithromax/Ns IV 12/24/20 12:59 250 mls/hr Q24H GUSTAVO Administration Protocol REMDESIVIR 100 mg/ Sodium 250 mls @ 500 mls/hr 12/22/20 21:00 12/22/20 22:09 Chloride IV 12/25/20 21:29 500 mls/hr Q24HR@2100 GUSTAVO Administration Insulin Human Lispro 0 unit 12/23/20 12:00 Insulin Lispro 100 Unit/Ml SUB-Q Q6HR [facility] Protocol Insulin Human Regular 10 units 12/23/20 08:00 Insulin Regular, Human 100 Units/1 Ml IV 12/23/20 12:00 ONCE@0800 NR Methylprednisolone Sodium Succinate 80 mg 12/21/20 12:00 12/23/20 07:16 Methylprednisolone Sod Succinate 125 Mg/2 Ml Inj IV 12/31/20 06:01 80 mg Q8HR GUSTAVO Administration Metoprolol Tartrate 50 mg 12/21/20 16:00 12/22/20 22:11 Metoprolol Tartrate 50 Mg Tab PO 50 mg BID GUSTAVO Administration Ondansetron HCl 4 mg 12/20/20 12:52 Ondansetron 4 Mg/2 Ml Inj IV Q8H PRN Nausea And Vomiting Oxycodone/Acetaminophen 1 tab 12/20/20 12:52 12/22/20 22:12 Oxycodone /Acetaminophen 5-325mg Tab PO 1 tab Q12H PRN Administration Pain, Moderate (4-6) Sodium Chloride 10 ml 12/20/20 22:00 12/22/20 22:12 Sodium Chloride 0.9% 10 Ml Flush Syringe IV 10 ml BID GUSTAVO Administration Sodium Chloride 10 ml 12/20/20 12:52 Sodium Chloride 0.9% 10 Ml Flush Syringe IV PRN PRN LINE FLUSH Sodium Chloride 50 ml 12/22/20 21:00 12/22/20 22:10 Sodium Chloride 0.9% 50 Ml Ivpb IV 12/25/20 21:01 50 ml Q24HR@2100 GUSTAVO Administration Sodium Polystyrene Sulfonate 30 gm 12/23/20 08:00 Sodium Polystyrene 15 Gm/60 Ml Oral Liqd PO 12/23/20 12:00 ONCE@0800 NR Zinc Sulfate 220 mg 12/20/20 22:00 12/22/20 22:11 Zinc Sulfate 220 Mg Cap PO 220 mg BID GUSTAVO Administration
[2020-12-23] MEDS: ENOXAPARIN 150 MG/1 ML INJ SUB-Q SCH ×2 (10:02→22:25)
[2020-12-23] MEDS: ASCORBIC ACID 500 MG TAB PO SCH ×2 (10:03→21:56)
[2020-12-23] MEDS: METOPROLOL TARTRATE 50 MG TAB PO SCH ×2 (10:03→21:56)
[2020-12-23] MEDS: CHOLECALCIFEROL (VIT D3) 1000 UNIT (25 mcg) TAB PO SCH (10:03)
[2020-12-23] MEDS: ZINC SULFATE 220 MG CAP PO SCH ×2 (10:03→21:56)
--- NOTE | 2020-12-23 10:07 | Progress Note ---
Assessment and Plan 50 y/o obese male, COVID positive admitted with acute hypoxic respiratory failure, renal failure and elevated D-Dimer 12/23/20: Lasix 40 again today. Suggest daily therapy at least for several days to help with volume overload. This could help with oxygenation. Steroids and Remdesivir. Prone if able. BP control. GUarded prognosis. 1. Ordered stat BNP 2. Agree with Echo, follow up read as it has been done per the chart 3. Agree with steroids right now 4. Was given lasix yesterday and renal function improved. Agree with continued therapy, and follow up renal recs 5. Remdesivir ordered by ID 6. Prone as tolerated during the day and sleep prone at night 7. Guarded prognosis. Subjective Date of service: 12/23/20 Principal diagnosis: COVID-19 PNA Interval history: Tolerating bipap now with appropriate sized masked. Down to 80%. Tolerated lasix well on yesterday. BNP was >6k on admission. Objective Vital Signs - 12hr 12/22/20 12/22/20 12/22/20 22:11 23:00 23:12 Temperature Pulse Rate 97 H 93 H Respiratory 38 H 38 H Rate Blood Pressure 159/110 154/87 O2 Sat by Pulse 94 Oximetry 12/23/20 12/23/20 12/23/20 00:00 00:30 01:00 Temperature Pulse Rate 76 76 82 Respiratory 38 H 36 H Rate Blood Pressure 135/78 124/86 O2 Sat by Pulse 93 91 Oximetry 12/23/20 12/23/20 12/23/20 02:00 03:00 04:00 Temperature Pulse Rate 78 90 81 Respiratory 38 H 27 H 37 H Rate Blood Pressure 122/77 122/77 143/89 O2 Sat by Pulse 97 91 96 Oximetry 12/23/20 12/23/20 12/23/20 05:00 06:00 07:00 Temperature Pulse Rate 84 80 86 Respiratory 40 H 39 H 31 H Rate Blood Pressure 153/86 134/74 133/83 O2 Sat by Pulse 94 90 93 Oximetry 12/23/20 12/23/20 12/23/20 08:00 08:23 08:25 Temperature 98.9 F Pulse Rate 86 Respiratory 37 H Rate Blood Pressure 142/86 O2 Sat by Pulse 98 96 Oximetry CBC and BMP: 12/22/20 05:56 12/23/20 05:15 ABG, PT/INR, D-dimer: PT/INR, D-dimer D-Dimer > 20934 ng/mlDDU (0-234) H 12/20/20 11:31 Abnormal lab findings: Abnormal Labs 12/20/20 12/20/20 12/20/20 11:31 11:31 11:31 WBC 16.5 H RBC 5.27 H Hgb Hct Seg Neuts % (Manual) 90.0 H Lymphocytes % (Manual) 5.0 L Nucleated RBC % Seg Neutrophils # Man 14.9 H Lymphocytes # (Manual) 0.8 L D-Dimer > 75337 H Sodium 130 L Potassium Chloride 94.5 L BUN 64 H Creatinine 2.6 H Glucose 154 H POC Glucose Hemoglobin A1c Calcium AST ALT Lactate Dehydrogenase Troponin T C-Reactive Protein NT-Pro-B Natriuret Pep Albumin 3.5 L Triglycerides HDL Cholesterol PTH Intact Urine WBC (Auto) Urine Creatinine Urine Total Protein Coronavirus (PCR) 12/20/20 12/21/20 12/21/20 11:31 06:10 06:10 WBC 20.1 H RBC 5.55 H Hgb 15.4 H Hct 47.3 H Seg Neuts % (Manual) 89.0 H Lymphocytes % (Manual) Nucleated RBC % 1.0 H Seg Neutrophils # Man 17.9 H Lymphocytes # (Manual) 0.0 L D-Dimer Sodium 136 L Potassium Chloride BUN 57 H Creatinine 1.8 H Glucose 193 H POC Glucose Hemoglobin A1c Calcium AST ALT Lactate Dehydrogenase 10 L Troponin T 0.106 H* C-Reactive Protein 5.20 H NT-Pro-B Natriuret Pep Albumin Triglycerides 226 H HDL Cholesterol 31 L PTH Intact Urine WBC (Auto) Urine Creatinine Urine Total Protein Coronavirus (PCR) 12/21/20 12/21/20 12/21/20 13:29 14:32 Unknown WBC RBC Hgb Hct Seg Neuts % (Manual) Lymphocytes % (Manual) Nucleated RBC % Seg Neutrophils # Man Lymphocytes # (Manual) D-Dimer Sodium 134 L Potassium Chloride BUN 57 H Creatinine 1.8 H Glucose 340 H POC Glucose Hemoglobin A1c Calcium 8.3 L AST ALT Lactate Dehydrogenase Troponin T C-Reactive Protein NT-Pro-B Natriuret Pep 6191 H Albumin 3.3 L Triglycerides HDL Cholesterol PTH Intact Urine WBC (Auto) Urine Creatinine Urine Total Protein Coronavirus (PCR) Positive A 12/22/20 12/22/2012/22/21 05:56 05:56 17:21 WBC 26.6 H RBC 5.22 H Hgb Hct Seg Neuts % (Manual) Lymphocytes % (Manual) Nucleated RBC % Seg Neutrophils # Man Lymphocytes # (Manual) D-Dimer Sodium Potassium Chloride BUN 64 H Creatinine 2.0 H Glucose 227 H POC Glucose 188 H Hemoglobin A1c Calcium AST ALT Lactate Dehydrogenase Troponin T C-Reactive Protein NT-Pro-B Natriuret Pep Albumin 3.4 L Triglycerides HDL Cholesterol PTH Intact Urine WBC (Auto) Urine Creatinine Urine Total Protein Coronavirus (PCR) 12/23/20 12/23/20 12/23/20 00:40 00:40 05:15 WBC RBC Hgb Hct Seg Neuts % (Manual) Lymphocytes % (Manual) Nucleated RBC % Seg Neutrophils # Man Lymphocytes # (Manual) D-Dimer Sodium Potassium 5.6 H Chloride BUN 71 H Creatinine 1.8 H Glucose 225 H POC Glucose Hemoglobin A1c Calcium AST 46 H ALT 83 H Lactate Dehydrogenase Troponin T C-Reactive Protein NT-Pro-B Natriuret Pep Albumin 3.6 L Triglycerides HDL Cholesterol PTH Intact Urine WBC (Auto) 8.0 H Urine Creatinine 134.1 H Urine Total Protein 50 H Coronavirus (PCR) 12/23/20 12/23/20 05:15 05:15 WBC RBC Hgb Hct Seg Neuts % (Manual) Lymphocytes % (Manual) Nucleated RBC % Seg Neutrophils # Man Lymphocytes # (Manual) D-Dimer Sodium Potassium Chloride BUN Creatinine Glucose POC Glucose Hemoglobin A1c 7.2 H Calcium AST ALT Lactate Dehydrogenase Troponin T C-Reactive Protein NT-Pro-B Natriuret Pep Albumin Triglycerides HDL Cholesterol PTH Intact 109.4 H Urine WBC (Auto) Urine Creatinine Urine Total Protein Coronavirus (PCR) Allied health notes reviewed: nursing
[2020-12-23] MEDS ORDERED: FUROSEMIDE 40 MG/4 ML INJ IV SCH (10:15)
--- NOTE | 2020-12-23 11:21 | Progress Note ---
Assessment and Plan Cultures: SARS CoV2 PCR: positive A/P: 50/M with HTN, CHF, non-compliance, currently incarcerated admitted to the hospital with: #Sepsis, secondary to bilateral pneumonia due to COVID-19: severe disease. Admi ssion labs: procalcitonin 1.45, D-dimer >10,000, CRP 5.2. CRP down to 1.1. #Acute hypoxic respiratory failure: on BiPAP. #NAVJOT: Renally dose antibiotics. #Morbid obesity Recs: continue Remdesivir D3 of 5 Continue empiric antibiotics x 5 days continue on steroids (solumedrol) x 10 days Does not meet hospital criteria for Actemra based on CRP Follow-up VQ scan when feasible due to elevated D-dimer and NAVJOT. On full anticoagulation Poor prognosis Julián Arce MD, FACP [facility] O: [phone] F: [phone] Subjective Date of service: 12/23/20 Principal diagnosis: COVID-19 PNA Interval history: No fever. Remains on BiPAP. Objective - Exam Narrative Exam: Physical Exam (reviewed in chart to minimize risk of transmission) Constitutional: deferred Head, Ears, Nose: deferred Eyes: deferred Neck: deferred Oral: deferred Cardiovascular: deferred Respiratory: deferred GI: deferred Musculoskeletal: deferred Skin: deferred Hem/Lymphatic: deferred Psych: deferred Neurological: deferred - Constitutional Vitals: Vital Signs Temp Pulse Resp BP Pulse Ox 98.9 F 91 H 37 H 138/83 96 12/23/20 08:00 12/23/20 10:03 12/23/20 08:25 12/23/20 10:03 12/23/20 08:25 Temperature -Last 24 Hours Temperature 98.9 F Temperature 98.6 F Temperature 98.6 F - Labs CBC & Chem 7: 12/22/20 05:56 12/23/20 05:15 Labs: Abnormal lab results 12/22/20 12/23/20 12/23/20 Range/Units 17:21 00:40 00:40 Potassium (3.6-5.0) mmol/L BUN (9-20) mg/dL Creatinine (0.8-1.3) mg/dL Glucose (75-100) mg/dL POC Glucose 188 H (70-105) mg/dL Hemoglobin A1c (4-6) % AST (5-40) units/L ALT (7-56) units/L Albumin (3.9-5) g/dL PTH Intact (15-65) pg/mL Urine WBC (Auto) 8.0 H (0.0-6.0) /HPF Urine Creatinine 134.1 H (0.1-20.0) mg/dL Urine Total Protein 50 H (5-11.8) mg/dL 12/23/20 12/23/20 12/23/20 Range/Units 05:15 05:15 05:15 Potassium 5.6 H (3.6-5.0) mmol/L BUN 71 H (9-20) mg/dL Creatinine 1.8 H (0.8-1.3) mg/dL Glucose 225 H (75-100) mg/dL POC Glucose (70-105) mg/dL Hemoglobin A1c 7.2 H (4-6) % AST 46 H (5-40) units/L ALT 83 H (7-56) units/L Albumin 3.6 L (3.9-5) g/dL PTH Intact 109.4 H (15-65) pg/mL Urine WBC (Auto) (0.0-6.0) /HPF Urine Creatinine (0.1-20.0) mg/dL Urine Total Protein (5-11.8) mg/dL
[2020-12-23] MEDS: INSULIN LISPRO 100 UNIT/ML SUB-Q SCH ×2 (13:10→17:32)
[2020-12-23] MEDS: AZITHROMYCIN/NS 500 MG/250 ML 500 MG/250 ML BAG IV SCH (13:10)
--- NOTE | 2020-12-23 15:37 | Progress Note ---
Assessment and Plan Patient is a 50 y/o incarcerated male with a PMHx of HTN and Obesity Hypoventilation Syndrome Acute hypoxic respiratory failure COVID-19 Sepsis Elevated D-dimer * Patient reports testing positive for CVODI-19. Patient currently on Bipap * ID and Pulmonology following * VQ scan shows low probability of PE * Covid positive NAVJOT * Nephrology following NSTEMI type 2 HTN * EKG show sinus tach 103no acute ischemic changes. Trops 0.1 in setting of sepsis secondary to suspected COVID-19 infection * Echo 12/21/2020- EF 50-55%, mild diastolic dysfxn, no significant valvular abnormalities * Patient on Valsartan at home. In setting of NAVJOT will hold * Continue metoprolol 50mg PO BID Plan: Patient cardiac status stable. May consider ischemic eval as an outpatient once Covid status resolved. Will sign off Patient seen in conjunction with Dr. Borrero who agrees with this plan of care. - Patient Problems (1) NAVJOT (acute kidney injury) Current Visit: Yes Status: Acute (2) Acute respiratory failure with hypoxia Current Visit: Yes Status: Acute (3) Coronavirus infection Current Visit: Yes Status: Acute (4) DVT prophylaxis Current Visit: Yes Status: Acute (5) Elevated troponin Current Visit: Yes Status: Acute (6) Obesity hypoventilation syndrome Current Visit: Yes Status: Acute Subjective Date of service: 12/23/20 Principal diagnosis: COVID-19 PNA Interval history: Patient lying in bed on Bipap Sinus 81 with no events on monitor Objective Vital Signs Temp Pulse Pulse Resp BP Pulse Ox 12/23/20 14:00 78 42 H 132/80 92 12/23/20 13:04 97 H 39 H 125/92 88 12/23/20 13:00 88 39 H 125/92 85 12/23/20 12:00 84 79 45 H 139/84 90 12/23/20 11:00 90 29 H 156/96 95 12/23/20 10:03 91 H 138/83 12/23/20 10:00 90 36 H 138/83 90 12/23/20 09:00 77 34 H 142/87 88 12/23/20 08:25 86 37 H 142/86 96 12/23/20 08:23 98 12/23/20 08:00 98.9 F 82 82 36 H 142/87 94 12/23/20 07:00 86 31 H 133/83 93 12/23/20 06:00 80 39 H 134/74 90 12/23/20 05:00 84 40 H 153/86 94 12/23/20 04:00 81 37 H 143/89 96 12/23/20 03:00 90 27 H 122/77 91 12/23/20 02:00 78 38 H 122/77 97 12/23/20 01:00 82 36 H 124/86 91 12/23/20 00:30 76 12/23/20 00:00 76 38 H 135/78 93 12/22/20 23:12 38 H 12/22/20 23:00 93 H 38 H 154/87 94 12/22/20 22:11 97 H 159/110 12/22/20 22:00 99 H 32 H 159/110 78 L 12/22/20 21:31 92 12/22/20 21:29 87 41 H 161/80 92 12/22/20 21:00 90 43 H 161/80 91 12/22/20 20:10 91 H 12/22/20 20:00 92 H 92 H 40 H 172/79 95 12/22/20 19:27 98.6 F 12/22/20 19:01 84 179/98 12/22/20 19:00 81 24 179/98 93 12/22/20 18:50 83 34 H 196/94 12/22/20 18:40 82 31 H 196/94 94 12/22/20 18:30 80 35 H 196/94 92 12/22/20 18:20 86 29 H 196/94 86 12/22/20 18:10 83 27 H 189/88 92 12/22/20 18:00 85 37 H 189/88 92 12/22/20 17:50 81 29 H 182/92 88 12/22/20 17:40 80 29 H 182/92 93 12/22/20 17:30 77 40 H 182/92 89 12/22/20 17:20 82 149/107 92 12/22/20 17:10 149/107 91 12/22/20 17:00 149/107 90 12/22/20 16:50 88 41 H 156/88 92 12/22/20 16:40 78 49 H 156/88 92 12/22/20 16:30 82 42 H 156/88 94 12/22/20 16:20 78 39 H 156/88 93 12/22/20 16:16 98.6 F 12/22/20 16:10 83 25 H 156/88 92 12/22/20 16:00 80 41 H 222/114 91 12/22/20 15:50 85 26 H 141/76 83 L 12/22/20 15:40 80 40 H 141/76 92 - Physical Examination General: Other (on Bipap) HEENT: Positive: PERRL Neck: Positive: trachea midline Cardiac: Positive: Reg Rate and Rhythm Lungs: Positive: Decreased Breath Sounds Neuro: Positive: Grossly Intact Abdomen: Positive: Soft, Active Bowel Sounds Skin: Negative: Rash, Suspicious Lesions, Ulceration Extremities: Present: upper extr. pulses, lower extr. pulses. Absent: edema - Labs and Meds Cardiac Enzymes 12/23/20 Range/Units 05:15 AST 46 H (5-40) units/L Comprehensive Metabolic Panel 12/23/20 Range/Units 05:15 Sodium 143 (137-145) mmol/L Potassium 5.6 H (3.6-5.0) mmol/L Chloride 103.2 (98-107) mmol/L Carbon Dioxide 28 (22-30) mmol/L BUN 71 H (9-20) mg/dL Creatinine 1.8 H (0.8-1.3) mg/dL Glucose 225 H (75-100) mg/dL Calcium 8.7 (8.4-10.2) mg/dL AST 46 H (5-40) units/L ALT 83 H (7-56) units/L Alkaline Phosphatase 51 (35-129) units/L Total Protein 7.6 (6.3-8.2) g/dL Albumin 3.6 L (3.9-5) g/dL - Imaging and Cardiology EKG: report reviewed, image reviewed Echo: report reviewed - Telemetry EKG Rhythm: Sinus Rhythm - EKG Sinus rhythms and dysrhythmias: sinus tachycardia - Allied health notes Allied health notes reviewed: nursing
--- NOTE | 2020-12-23 15:58 | Progress Note ---
Assessment and Plan Assessment and plan: 50 YO Male with HTN, CHF, Obesity Hypoventilation Syndrome, Medication Noncompliance, Coronivirus Infection Diagnosed 1week ago presents to ED for evaluation. Patient reports "I cannot breathe". Patient states that he has experienced fatigue, shortness of breath, dry cough, decreased exercise tolerance, diminished sense of smell, diminished sense of taste over the past 1 week with persistent and worsening symptoms over the same timeframe. Patient is currently incarcerated and was seen by medical staff at the [facility] and was found to have a pulse oximetry in the 60s this a.m. EMS was notified and upon arrival the patient was found to be in respiratory distress and placed on supplemental oxygen via nonrebreather mask and subsequently transported to [facility] for further care and evaluation of the aforementioned symptoms. The patient was seen and evaluated in the emergency department. All lab and imaging studies reviewed. The patient was found to have a pulse oximetry of 78% on nonrebreathe r mask which is consistent with acute hypoxemic respiratory failure. Chest x- ray revealed bilateral pneumonia. The patient was admitted to medical floor and initiated on pneumonia protocol as well as coronavirus protocol. The patient was placed on high flow supplemental oxygen in the emergency department. Patient denies fever, chills, chest pain, palpitations, skin rash, recent ill contacts, unilateral leg swelling, calf pain, individual/family history of DVT/PE/bleeding/blood clotting disorders. No prior admission for review. No medication listed at time of admission for reconciliation. VQ scan ordered at time of admission and is currently pending. (1) Acute respiratory failure with hypoxia Current Visit: Yes Status: Acute Plan to address problem: Chest x-ray, VQ scan, high flow supplemental oxygen, pulse oximetry, will consider noninvasive positive pressure ventilation if patient is unable to maintain pulse oximetry on high flow supplemental oxygen. Pulmonary team consulted. (2) Coronavirus infection Current Visit: Yes Status: Acute Plan to address problem: Coronavirus protocol: IV steroid therapy, IV antibiotic therapy, supplemental oxygen, pulse oximetry, contact precautions, isolation precautions, vitamin C therapy, vitamin D therapy, zinc therapy, prophylactic anticoagulation. (3) Obesity hypoventilation syndrome Current Visit: Yes Status: Acute Plan to address problem: Balanced diet, increase physical activity discharge, outpatient pulmonary follow-up for sleep study. (4) Pneumonia Current Visit: Yes Status: Acute Plan to address problem: Pneumonia protocol: Chest x-ray, CBC, CMP, supplemental oxygen, pulse oximetry, nebulizer therapy, blood culture. (5) stable congestive heart failure (6) Acute kidney failure with vasomotor nephropathy (7) DVT prophylaxis Current Visit: Yes Status: Acute Plan to address problem: SCDs bilateral lower extremities while in bed, prophylactic anticoagulation (8) Advance care planning Current Visit: Yes Status: Acute Plan to address problem: Disease education conducted, care plan discussed, diagnoses discussed, prognosis discussed, patient counseled regarding coronavirus vaccination within 90 days of discharge. Patient is full code, +30 minutes. 12/21: Continue supportive care, wean oxygen as tolerated, Pulmonary, Nephrology, ID input. Renal improving. Continue steroids, defer Remedesivir to the ID. CPAP at night due to [place] 12/22: Patient remains persistently hypoxic, going to be moving the patient down to the IMCU as he is satting 86% on nonrebreather and also high flow. Prognosis very poor. 12/23: Continue IMCU. Continue reinforcement for the patient management plan. Continue steroids and remdesivir. Monitor blood sugar closely. Poor prognosis cct 35mins. History Interval history: Patient seen and examined r was on BiPAP this morning but per nursing staff was threatening to leave AGAINST MEDICAL ADVICE says that he wants to eat Hospitalist Physical - Physical exam Narrative exam: VITAL SIGNS: Reviewed. GENERAL: The patient appears normally developed, morbidly obese on BiPAP vital signs as documented. HEAD: No signs of head trauma. EYES: Pupils are equal. Extraocular motions intact. EARS: Hearing grossly intact. MOUTH: Oropharynx is normal. NECK: No adenopathy, no JVD. CHEST: Chest with diminished breath sounds bilaterally. No wheezes, rales, or rhonchi. CARDIAC: Regular rate and rhythm. S1 and S2, without murmurs, gallops, or rubs. VASCULAR: No Edema. Peripheral pulses normal and equal in all extremities. ABDOMEN: Soft, non tender and non distended. No rebound or guarding, and no masses palpated. Bowel Sounds normal. MUSCULOSKELETAL: Good range of motion of all major joints. Extremities without clubbing, cyanosis or edema. NEUROLOGIC EXAM: Alert and oriented x 3 No focal sensory or strength deficits. Speech normal. Follows commands. PSYCHIATRIC: Mood normal. SKIN: detail exam as documented in skin assessment - Constitutional Vitals: Temp Pulse Resp BP Pulse Ox 98.9 F 78 42 H 132/80 92 12/23/20 08:00 12/23/20 14:00 12/23/20 14:00 12/23/20 14:00 12/23/20 14:00 General appearance: Present: no acute distress HEART Score - HEART Score Troponin: Troponin T < 0.010 ng/mL (0.00-0.029) 12/21/20 18:26 Results - Labs CBC & Chem 7: 12/22/20 05:56 12/25/20 04:44 Labs: Laboratory Last Values WBC 26.6 K/mm3 (4.5-11.0) H 12/22/20 05:56 RBC 5.22 M/mm3 (3.65-5.03) H 12/22/20 05:56 Hgb 14.4 gm/dl (11.8-15.2) 12/22/20 05:56 Hct 44.4 % (35.5-45.6) 12/22/20 05:56 MCV 85 fl (84-94) 12/22/20 05:56 MCH 28 pg (28-32) 12/22/20 05:56 MCHC 33 % (32-34) 12/22/20 05:56 RDW 14.3 % (13.2-15.2) 12/22/20 05:56 Plt Count 145 K/mm3 (140-440) 12/22/20 05:56 Add Manual Diff Complete 12/21/20 06:10 Total Counted 100 12/21/20 06:10 Seg Neuts % (Manual) 89.0 % (40.0-70.0) H 12/21/20 06:10 Band Neutrophils % 3.0 % 12/21/20 06:10 Lymphocytes % (Manual) 5.0 % (13.4-35.0) L 12/20/20 11:31 Reactive Lymphs % (Man) 2.0 % 12/21/20 06:10 Monocytes % (Manual) 1.0 % (0.0-7.3) 12/21/20 06:10 Myelocytes % 4.0 % 12/21/20 06:10 Blast Cells % 1.0 % 12/21/20 06:10 Nucleated RBC % 1.0 % (0.0-0.9) H 12/21/20 06:10 Seg Neutrophils # Man 17.9 K/mm3 (1.8-7.7) H 12/21/20 06:10 Band Neutrophils # 0.6 K/mm3 12/21/20 06:10 Lymphocytes # (Manual) 0.0 K/mm3 (1.2-5.4) L 12/21/20 06:10 Abs React Lymphs (Man) 0.4 K/mm3 12/21/20 06:10 Monocytes # (Manual) 0.2 K/mm3 (0.0-0.8) 12/21/20 06:10 Eosinophils # (Manual) 0.0 K/mm3 (0.0-0.4) 12/21/20 06:10 Basophils # (Manual) 0.0 K/mm3 (0.0-0.1) 12/21/20 06:10 Metamyelocytes # 0.0 K/mm3 12/21/20 06:10 Myelocytes # 0.8 K/mm3 12/21/20 06:10 Promyelocytes # 0.0 K/mm3 12/21/20 06:10 Blast Cells # 0.1 K/mm3 12/21/20 06:10 WBC Morphology Not Reportable 12/21/20 06:10 Hypersegmented Neuts Not Reportable 12/21/20 06:10 Hyposegmented Neuts Not Reportable 12/21/20 06:10 Hypogranular Neuts Not Reportable 12/21/20 06:10 Smudge Cells Not Reportable 12/21/20 06:10 Toxic Granulation Not Reportable 12/21/20 06:10 Toxic Vacuolation Not Reportable 12/21/20 06:10 Dohle Bodies Not Reportable 12/21/20 06:10 Pelger-Huet Anomaly Not Reportable 12/21/20 06:10 Chantel Rods Not Reportable 12/21/20 06:10 Platelet Estimate Consistent w auto 12/21/20 06:10 Clumped Platelets Not Reportable 12/21/20 06:10 Plt Clumps, EDTA Not Reportable 12/21/20 06:10 Large Platelets Not Reportable 12/21/20 06:10 Giant Platelets Not Reportable 12/21/20 06:10 Platelet Satelliting Not Reportable 12/21/20 06:10 Plt Morphology Comment Not Reportable 12/21/20 06:10 RBC Morphology Not Reportable 12/21/20 06:10 Dimorphic RBCs Not Reportable 12/21/20 06:10 Polychromasia Not Reportable 12/21/20 06:10 Hypochromasia Not Reportable 12/21/20 06:10 Poikilocytosis Not Reportable 12/21/20 06:10 Anisocytosis Not Reportable 12/21/20 06:10 Microcytosis Not Reportable 12/21/20 06:10 Macrocytosis Not Reportable 12/21/20 06:10 Spherocytes Rare 12/21/20 06:10 Pappenheimer Bodies Not Reportable 12/21/20 06:10 Sickle Cells Not Reportable 12/21/20 06:10 Target Cells Rare 12/21/20 06:10 Tear Drop Cells Not Reportable 12/21/20 06:10 Ovalocytes Not Reportable 12/21/20 06:10 Helmet Cells Not Reportable 12/21/20 06:10 [place] Bodies Not Reportable 12/21/20 06:10 Ramona Rings Not Reportable 12/21/20 06:10 [place] Cells Not Reportable 12/21/20 06:10 Bite Cells Not Reportable 12/21/20 06:10 Crenated Cell Not Reportable 12/21/20 06:10 Elliptocytes Not Reportable 12/21/20 06:10 Acanthocytes (Spur) Not Reportable 12/21/20 06:10 Rouleaux Not Reportable 12/21/20 06:10 Hemoglobin C Crystals Not Reportable 12/21/20 06:10 Schistocytes Not Reportable 12/21/20 06:10 Malaria parasites Not Reportable 12/21/20 06:10 Andrew Bodies Not Reportable 12/21/20 06:10 Hem Pathologist Commnt No 12/21/20 06:10 D-Dimer > 61655 ng/mlDDU (0-234) H 12/20/20 11:31 ABG pH 7.446 (7.320-7.450) 12/23/20 13:06 POC ABG pCO2 29.6 mmHg (32.0-48.0) L 12/23/20 13:06 POC ABG pO2 57.8 mmHg (83-108) L 12/23/20 13:06 POC ABG HCO3 19.9 12/23/20 13:06 ABG O2 Saturation 89.8 (0-100) 12/23/20 13:06 POC ABG Base Excess -2.8 12/23/20 13:06 ABG Hemoglobin 15.3 (12.0-17.5) 12/23/20 13:06 ABG Oxyhemoglobin 88.9 (94-98) L 12/23/20 13:06 ABG Methemoglobin 0.3 (0.0-1.5) 12/23/20 13:06 ABG Sodium 140.6 mmol/L (136.0-145.0) 12/23/20 13:06 ABG Potassium 4.7 mmol/L (3.40-4.50) H 12/23/20 13:06 ABG Chloride 107.0 mmol/L (98-107) 12/23/20 13:06 ABG Glucose 286 mg/dL (65-95) H 12/23/20 13:06 Carboxyhemoglobin 0.7 (0.5-1.5) 12/23/20 13:06 FiO2 % 80.0 12/23/20 13:06 Sodium 143 mmol/L (137-145) 12/23/20 05:15 Potassium 5.6 mmol/L (3.6-5.0) H 12/23/20 05:15 Chloride 103.2 mmol/L (98-107) 12/23/20 05:15 Carbon Dioxide 28 mmol/L (22-30) 12/23/20 05:15 Anion Gap 17 mmol/L 12/23/20 05:15 BUN 71 mg/dL (9-20) H 12/23/20 05:15 Creatinine 1.8 mg/dL (0.8-1.3) H 12/23/20 05:15 Estimated GFR 49 ml/min 12/23/20 05:15 BUN/Creatinine Ratio 39 % 12/23/20 05:15 Glucose 225 mg/dL (75-100) H 12/23/20 05:15 POC Glucose 257 mg/dL (70-105) H 12/23/20 11:47 Hemoglobin A1c 7.2 % (4-6) H 12/23/20 05:15 Calcium 8.7 mg/dL (8.4-10.2) 12/23/20 05:15 Total Bilirubin 0.70 mg/dL (0.1-1.2) 12/23/20 05:15 AST 46 units/L (5-40) H 12/23/20 05:15 ALT 83 units/L (7-56) H 12/23/20 05:15 Alkaline Phosphatase 51 units/L (35-129) 12/23/20 05:15 Lactate Dehydrogenase 10 units/L (91-180) L 12/20/20 11:31 Troponin T < 0.010 ng/mL (0.00-0.029) 12/21/20 18:26 C-Reactive Protein 1.10 mg/dL (0.00-1.30) 12/23/20 09:06 NT-Pro-B Natriuret Pep 6191 pg/mL (0-900) H 12/21/20 14:32 Total Protein 7.6 g/dL (6.3-8.2) 12/23/20 05:15 Albumin 3.6 g/dL (3.9-5) L 12/23/20 05:15 Albumin/Globulin Ratio 0.9 % 12/23/20 05:15 Triglycerides 226 mg/dL (2-149) H 12/20/20 11:31 Cholesterol 175 mg/dL (50-199) 12/20/20 11:31 LDL Cholesterol Direct 98 mg/dL (50-130) 12/20/20 11:31 HDL Cholesterol 31 mg/dL (40-59) L 12/20/20 11:31 Cholesterol/HDL Ratio 5.64 % 12/20/20 11:31 Procalcitonin 1.45 ng/mL (<0.15) 12/20/20 11:31 PTH Intact 109.4 pg/mL (15-65) H 12/23/20 05:15 Arterial Blood Glucose 286 mg/dL (65-95) H 12/23/20 13:06 Urine Color Straw (Yellow) 12/23/20 00:40 Urine Turbidity Clear (Clear) 12/23/20 00:40 Urine pH 5.0 (5.0-7.0) 12/23/20 00:40 Ur Specific [place] 1.030 (1.003-1.030) 12/23/20 00:40 Urine Protein 30 mg/dl mg/dL (Negative) 12/23/20 00:40 Urine Glucose (UA) Negative mg/dL (Negative) 12/23/20 00:40 Urine Ketones Negative mg/dL (Negative) 12/23/20 00:40 Urine Blood Negative (Negative) 12/23/20 00:40 Urine Nitrite Negative (Negative) 12/23/20 00:40 Ur Reducing Substances Not Reportable 12/23/20 00:40 Urine Bilirubin Negative (Negative) 12/23/20 00:40 Urine Ictotest Not Reportable 12/23/20 00:40 Urine Urobilinogen < 2.0 mg/dL (<2.0) 12/23/20 00:40 Ur Leukocyte Esterase Negative (Negative) 12/23/20 00:40 Urine WBC (Auto) 8.0 /HPF (0.0-6.0) H 12/23/20 00:40 Urine RBC (Auto) 1.0 /HPF (0.0-6.0) 12/23/20 00:40 U Epithel Cells (Auto) < 1.0 /HPF (0-13.0) 12/23/20 00:40 Hyaline Casts 1 /LPF 12/23/20 00:40 Urine Mucus Few /HPF 12/23/20 00:40 Urine Eosinophils None seen (None Seen) 12/23/20 00:40 Urine Creatinine 134.1 mg/dL (0.1-20.0) H 12/23/20 00:40 Protein/Creatinin Ratio 0.37 12/23/20 00:40 Urine Sodium 26 mmol/L 12/23/20 00:40 Urine Total Protein 50 mg/dL (5-11.8) H 12/23/20 00:40 Coronavirus (PCR) Positive (Negative) A 12/21/20 Unknown Murray/IV: Voiding Method Urinal Active Medications - Current Medications Current Medications: Generic Name Dose Route Start Last Admin Trade Name Freq PRN Reason Stop Dose Admin Acetaminophen 650 mg 12/20/20 12:52 Acetaminophen 325 Mg Tab PO Q4H PRN Pain MILD(1-3)/Fever >100.5/KWON Ascorbic Acid 500 mg 12/20/20 22:00 12/23/20 10:03 Ascorbic Acid 500 Mg Tab PO 500 mg BID GUSTAVO Administration Cholecalciferol 1,000 unit 12/21/20 10:00 12/23/20 10:03 Cholecalciferol (Vit D3) 1000 Unit (25 Mcg) Tab PO 1,000 unit QDAY GUSTAVO Administration Enoxaparin Sodium 150 mg 12/21/20 22:00 12/23/20 10:02 Enoxaparin 150 Mg/1 Ml Inj SUB-Q 150 mg Q12HR GUSTAVO Administration Hydralazine HCl 10 mg 12/22/20 17:56 12/22/20 19:01 Hydralazine 20 Mg/1 Ml Inj IV 10 mg Q6H PRN Administration Hypertension Hydromorphone HCl 0.5 mg 12/20/20 12:52 Hydromorphone 1 Mg/1 Ml Inj IV Q23H PRN Pain , Severe (7-10) Ceftriaxone Sodium 2 gm in 100 mls @ 200 mls/hr 12/21/20 00:00 12/22/20 23:49 Rocephin/Ns 2 Gm/100 Ml IV 12/25/20 03:59 200 mls/hr Q24H GUSTAVO Administration Protocol Azithromycin 500 mg in 250 mls @ 250 mls/hr 12/21/20 12:00 12/23/20 13:10 Zithromax/Ns IV 12/24/20 12:59 250 mls/hr Q24H GUSTAVO Administration Protocol REMDESIVIR 100 mg/ Sodium 250 mls @ 500 mls/hr 12/22/20 21:00 12/22/20 22:09 Chloride IV 12/25/20 21:29 500 mls/hr Q24HR@2100 GUSTAVO Administration Insulin Human Lispro 0 unit 12/23/20 12:00 12/23/20 13:10 Insulin Lispro 100 Unit/Ml SUB-Q 6 unit Q6HR GUSTAVO Administration Protocol Methylprednisolone Sodium Succinate 80 mg 12/21/20 12:00 12/23/20 13:12 Methylprednisolone Sod Succinate 125 Mg/2 Ml Inj IV 12/31/20 06:01 80 mg Q8HR GUSTAVO Administration Metoprolol Tartrate 50 mg 12/21/20 16:00 12/23/20 10:03 Metoprolol Tartrate 50 Mg Tab PO 50 mg BID GUSTAVO Administration Ondansetron HCl 4 mg 12/20/20 12:52 Ondansetron 4 Mg/2 Ml Inj IV Q8H PRN Nausea And Vomiting Oxycodone/Acetaminophen 1 tab 12/20/20 12:52 12/22/20 22:12 Oxycodone /Acetaminophen 5-325mg Tab PO 1 tab Q12H PRN Administration Pain, Moderate (4-6) Sodium Chloride 10 ml 12/20/20 22:00 12/23/20 10:02 Sodium Chloride 0.9% 10 Ml Flush Syringe IV 10 ml BID GUSTAVO Administration Sodium Chloride 10 ml 12/20/20 12:52 Sodium Chloride 0.9% 10 Ml Flush Syringe IV PRN PRN LINE FLUSH Sodium Chloride 50 ml 12/22/20 21:00 12/22/20 22:10 Sodium Chloride 0.9% 50 Ml Ivpb IV 12/25/20 21:01 50 ml Q24HR@2100 GUSTAVO Administration Zinc Sulfate 220 mg 12/20/20 22:00 12/23/20 10:03 Zinc Sulfate 220 Mg Cap PO 220 mg BID GUSTAVO Administration
--- NOTE | 2020-12-23 18:01 | Ultrasound Report ---
ULTRASOUND RENAL INDICATION / CLINICAL INFORMATION: Acute renal failure.. COMPARISON: None available. FINDINGS: RIGHT KIDNEY: Length = 11.0 cm. - Echogenicity: Normal. - Cortical Thickness: Normal. - Hydronephrosis: None. - Cyst or mass: No significant abnormality. - Stones: None seen. LEFT KIDNEY: Length = 11.7 cm. - Echogenicity: Normal. - Cortical Thickness: Normal. - Hydronephrosis: None. - Cyst or mass: No significant abnormality. - Stones: None seen. URINARY BLADDER: No significant abnormality. FREE FLUID: None. ADDITIONAL FINDINGS: None. IMPRESSION: 1. No significant abnormality. Signer Name: Franki Knapp MD Signed: 12/23/2020 5:57 PM Workstation Name: [id number]
[2020-12-23] MEDS: REMDESIVIR 100 MG in SODIUM CHLORIDE 0.9% 250ML 250 ML IV SCH (21:57)
[2020-12-23] MEDS: SODIUM CHLORIDE 0.9% 50 ML IVPB IV SCH (22:00)
[2020-12-24] MEDS: cefTRIAXone/NS 2 GM/100 ML 2 GM/100 ML BAG IV SCH (00:33)
[2020-12-24] MEDS: INSULIN LISPRO 100 UNIT/ML SUB-Q SCH ×5 (00:33→23:00)
[2020-12-24] MEDS: methylPREDNISolone Sod Succinate 125 MG/2 ML INJ IV SCH ×3 (05:35→21:36)
[2020-12-24 07:06] LABS: Albumin 3.5 g/dL (3.9-5); Calcium 8.9 mg/dL (8.4-10.2)
[2020-12-24] MEDS: ASCORBIC ACID 500 MG TAB PO SCH ×2 (10:08→21:37)
[2020-12-24] MEDS: CHOLECALCIFEROL (VIT D3) 1000 UNIT (25 mcg) TAB PO SCH (10:08)
[2020-12-24] MEDS: METOPROLOL TARTRATE 50 MG TAB PO SCH ×2 (10:08→21:37)
[2020-12-24] MEDS: ENOXAPARIN 150 MG/1 ML INJ SUB-Q SCH ×2 (10:09→21:36)
[2020-12-24] MEDS: ZINC SULFATE 220 MG CAP PO SCH ×2 (10:09→21:37)
[2020-12-24] MEDS ORDERED: DEXTROSE 50% IN WATER (25GM) 50 ML SYRINGE IV ONE (11:00)
--- NOTE | 2020-12-24 11:17 | Progress Note ---
Assessment and Plan Assessment and plan: 50 YO Male with HTN, CHF, Obesity Hypoventilation Syndrome, Medication Noncompliance, Coronivirus Infection Diagnosed 1week ago presents to ED for evaluation. Patient reports "I cannot breathe". Patient states that he has experienced fatigue, shortness of breath, dry cough, decreased exercise tolerance, diminished sense of smell, diminished sense of taste over the past 1 week with persistent and worsening symptoms over the same timeframe. Patient is currently incarcerated and was seen by medical staff at the [facility] and was found to have a pulse oximetry in the 60s this a.m. EMS was notified and upon arrival the patient was found to be in respiratory distress and placed on supplemental oxygen via nonrebreather mask and subsequently transported to [facility] for further care and evaluation of the aforementioned symptoms. The patient was seen and evaluated in the emergency department. All lab and imaging studies reviewed. The patient was found to have a pulse oximetry of 78% on nonrebreathe r mask which is consistent with acute hypoxemic respiratory failure. Chest x- ray revealed bilateral pneumonia. The patient was admitted to medical floor and initiated on pneumonia protocol as well as coronavirus protocol. The patient was placed on high flow supplemental oxygen in the emergency department. Patient denies fever, chills, chest pain, palpitations, skin rash, recent ill contacts, unilateral leg swelling, calf pain, individual/family history of DVT/PE/bleeding/blood clotting disorders. No prior admission for review. No medication listed at time of admission for reconciliation. VQ scan ordered at time of admission and is currently pending. (1) Acute respiratory failure with hypoxia Current Visit: Yes Status: Acute Plan to address problem: Chest x-ray, VQ scan, high flow supplemental oxygen, pulse oximetry, will consider noninvasive positive pressure ventilation if patient is unable to maintain pulse oximetry on high flow supplemental oxygen. Pulmonary team consulted. (2) Coronavirus infection Current Visit: Yes Status: Acute Plan to address problem: Coronavirus protocol: IV steroid therapy, IV antibiotic therapy, supplemental oxygen, pulse oximetry, contact precautions, isolation precautions, vitamin C therapy, vitamin D therapy, zinc therapy, prophylactic anticoagulation. (3) Obesity hypoventilation syndrome Current Visit: Yes Status: Acute Plan to address problem: Balanced diet, increase physical activity discharge, outpatient pulmonary follow-up for sleep study. (4) Pneumonia Current Visit: Yes Status: Acute Plan to address problem: Pneumonia protocol: Chest x-ray, CBC, CMP, supplemental oxygen, pulse oximetry, nebulizer therapy, blood culture. (5) stable congestive heart failure (6) Acute kidney failure with vasomotor nephropathy (7) DVT prophylaxis Current Visit: Yes Status: Acute Plan to address problem: SCDs bilateral lower extremities while in bed, prophylactic anticoagulation (8) Advance care planning Current Visit: Yes Status: Acute Plan to address problem: Disease education conducted, care plan discussed, diagnoses discussed, prognosis discussed, patient counseled regarding coronavirus vaccination within 90 days of discharge. Patient is full code, +30 minutes. 12/21: Continue supportive care, wean oxygen as tolerated, Pulmonary, Nephrology, ID input. Renal improving. Continue steroids, defer Remedesivir to the ID. CPAP at night due to CARINA 12/22: Patient remains persistently hypoxic, going to be moving the patient down to the IMCU as he is satting 86% on nonrebreather and also high flow. Prognosis very poor. 12/23: : Continue IMCU. Continue reinforcement for the patient management plan. Continue steroids and remdesivir. Monitor blood sugar closely. Poor prognosis 12/24: Extensive discussion about the patient to be compliant with management marleni handley. Noted hyperkalemia Kayexalate ordered already for the patient. cct 35mins. History Interval history: Patient seen and examined r was on BiPAP this morning but per nursing staff was threatening to leave AGAINST MEDICAL ADVICE says that he wants to eat Hospitalist Physical - Physical exam Narrative exam: VITAL SIGNS: Reviewed. GENERAL: The patient appears normally developed, morbidly obese on BiPAP vital signs as documented. HEAD: No signs of head trauma. EYES: Pupils are equal. Extraocular motions intact. EARS: Hearing grossly intact. MOUTH: Oropharynx is normal. NECK: No adenopathy, no JVD. CHEST: Chest with diminished breath sounds bilaterally. No wheezes, rales, or rhonchi. CARDIAC: Regular rate and rhythm. S1 and S2, without murmurs, gallops, or rubs . VASCULAR: No Edema. Peripheral pulses normal and equal in all extremities. ABDOMEN: Soft, non tender and non distended. No rebound or guarding, and no masses palpated. Bowel Sounds normal. MUSCULOSKELETAL: Good range of motion of all major joints. Extremities without clubbing, cyanosis or edema. NEUROLOGIC EXAM: Alert and oriented x 3 No focal sensory or strength deficits. Speech normal. Follows commands. PSYCHIATRIC: Mood normal. SKIN: detail exam as documented in skin assessment - Constitutional Vitals: Temp Pulse Resp BP Pulse Ox 99.6 F 91 H 22 136/74 93 12/24/20 08:00 12/24/20 10:08 12/24/20 07:00 12/24/20 10:08 12/24/20 07:00 General appearance: Present: no acute distress HEART Score - HEART Score Troponin: Troponin T < 0.010 ng/mL (0.00-0.029) 12/21/20 18:26 Results - Labs CBC & Chem 7: 12/22/20 05:56 12/25/20 04:44 Labs: Laboratory Last Values WBC 26.6 K/mm3 (4.5-11.0) H 12/22/20 05:56 RBC 5.22 M/mm3 (3.65-5.03) H 12/22/20 05:56 Hgb 14.4 gm/dl (11.8-15.2) 12/22/20 05:56 Hct 44.4 % (35.5-45.6) 12/22/20 05:56 MCV 85 fl (84-94) 12/22/20 05:56 MCH 28 pg (28-32) 12/22/20 05:56 MCHC 33 % (32-34) 12/22/20 05:56 RDW 14.3 % (13.2-15.2) 12/22/20 05:56 Plt Count 145 K/mm3 (140-440) 12/22/20 05:56 Add Manual Diff Complete 12/21/20 06:10 Total Counted 100 12/21/20 06:10 Seg Neuts % (Manual) 89.0 % (40.0-70.0) H 12/21/20 06:10 Band Neutrophils % 3.0 % 12/21/20 06:10 Lymphocytes % (Manual) 5.0 % (13.4-35.0) L 12/20/20 11:31 Reactive Lymphs % (Man) 2.0 % 12/21/20 06:10 Monocytes % (Manual) 1.0 % (0.0-7.3) 12/21/20 06:10 Myelocytes % 4.0 % 12/21/20 06:10 Blast Cells % 1.0 % 12/21/20 06:10 Nucleated RBC % 1.0 % (0.0-0.9) H 12/21/20 06:10 Seg Neutrophils # Man 17.9 K/mm3 (1.8-7.7) H 12/21/20 06:10 Band Neutrophils # 0.6 K/mm3 12/21/20 06:10 Lymphocytes # (Manual) 0.0 K/mm3 (1.2-5.4) L 12/21/20 06:10 Abs React Lymphs (Man) 0.4 K/mm3 12/21/20 06:10 Monocytes # (Manual) 0.2 K/mm3 (0.0-0.8) 12/21/20 06:10 Eosinophils # (Manual) 0.0 K/mm3 (0.0-0.4) 12/21/20 06:10 Basophils # (Manual) 0.0 K/mm3 (0.0-0.1) 12/21/20 06:10 Metamyelocytes # 0.0 K/mm3 12/21/20 06:10 Myelocytes # 0.8 K/mm3 12/21/20 06:10 Promyelocytes # 0.0 K/mm3 12/21/20 06:10 Blast Cells # 0.1 K/mm3 12/21/20 06:10 WBC Morphology Not Reportable 12/21/20 06:10 Hypersegmented Neuts Not Reportable 12/21/20 06:10 Hyposegmented Neuts Not Reportable 12/21/20 06:10 Hypogranular Neuts Not Reportable 12/21/20 06:10 Smudge Cells Not Reportable 12/21/20 06:10 Toxic Granulation Not Reportable 12/21/20 06:10 Toxic Vacuolation Not Reportable 12/21/20 06:10 Dohle Bodies Not Reportable 12/21/20 06:10 Pelger-Huet Anomaly Not Reportable 12/21/20 06:10 Chantel Rods Not Reportable 12/21/20 06:10 Platelet Estimate Consistent w auto 12/21/20 06:10 Clumped Platelets Not Reportable 12/21/20 06:10 Plt Clumps, EDTA Not Reportable 12/21/20 06:10 Large Platelets Not Reportable 12/21/20 06:10 Giant Platelets Not Reportable 12/21/20 06:10 Platelet Satelliting Not Reportable 12/21/20 06:10 Plt Morphology Comment Not Reportable 12/21/20 06:10 RBC Morphology Not Reportable 12/21/20 06:10 Dimorphic RBCs Not Reportable 12/21/20 06:10 Polychromasia Not Reportable 12/21/20 06:10 Hypochromasia Not Reportable 12/21/20 06:10 Poikilocytosis Not Reportable 12/21/20 06:10 Anisocytosis Not Reportable 12/21/20 06:10 Microcytosis Not Reportable 12/21/20 06:10 Macrocytosis Not Reportable 12/21/20 06:10 Spherocytes Rare 12/21/20 06:10 Pappenheimer Bodies Not Reportable 12/21/20 06:10 Sickle Cells Not Reportable 12/21/20 06:10 Target Cells Rare 12/21/20 06:10 Tear Drop Cells Not Reportable 12/21/20 06:10 Ovalocytes Not Reportable 12/21/20 06:10 Helmet Cells Not Reportable 12/21/20 06:10 [place] Bodies Not Reportable 12/21/20 06:10 Arnot Rings Not Reportable 12/21/20 06:10 Chaparro Cells Not Reportable 12/21/20 06:10 Bite Cells Not Reportable 12/21/20 06:10 Crenated Cell Not Reportable 12/21/20 06:10 Elliptocytes Not Reportable 12/21/20 06:10 Acanthocytes (Spur) Not Reportable 12/21/20 06:10 Rouleaux Not Reportable 12/21/20 06:10 Hemoglobin C Crystals Not Reportable 12/21/20 06:10 Schistocytes Not Reportable 12/21/20 06:10 Malaria parasites Not Reportable 12/21/20 06:10 Andrew Bodies Not Reportable 12/21/20 06:10 Hem Pathologist Commnt No 12/21/20 06:10 D-Dimer > 81681 ng/mlDDU (0-234) H 12/20/20 11:31 ABG pH 7.446 (7.320-7.450) 12/23/20 13:06 POC ABG pCO2 29.6 mmHg (32.0-48.0) L 12/23/20 13:06 POC ABG pO2 57.8 mmHg (83-108) L 12/23/20 13:06 POC ABG HCO3 19.9 12/23/20 13:06 ABG O2 Saturation 89.8 (0-100) 12/23/20 13:06 POC ABG Base Excess -2.8 12/23/20 13:06 ABG Hemoglobin 15.3 (12.0-17.5) 12/23/20 13:06 ABG Oxyhemoglobin 88.9 (94-98) L 12/23/20 13:06 ABG Methemoglobin 0.3 (0.0-1.5) 12/23/20 13:06 ABG Sodium 140.6 mmol/L (136.0-145.0) 12/23/20 13:06 ABG Potassium 4.7 mmol/L (3.40-4.50) H 12/23/20 13:06 ABG Chloride 107.0 mmol/L (98-107) 12/23/20 13:06 ABG Glucose 286 mg/dL (65-95) H 12/23/20 13:06 Carboxyhemoglobin 0.7 (0.5-1.5) 12/23/20 13:06 FiO2 % 80.0 12/23/20 13:06 Sodium 145 mmol/L (137-145) 12/24/20 04:56 Potassium 5.4 mmol/L (3.6-5.0) H 12/24/20 04:56 Chloride 105.2 mmol/L (98-107) 12/24/20 04:56 Carbon Dioxide 18 mmol/L (22-30) L D 12/24/20 04:56 Anion Gap 27 mmol/L 12/24/20 04:56 BUN 74 mg/dL (9-20) H 12/24/20 04:56 Creatinine 1.6 mg/dL (0.8-1.3) H 12/24/20 04:56 Estimated GFR 56 ml/min 12/24/20 04:56 BUN/Creatinine Ratio 46 % 12/24/20 04:56 Glucose 228 mg/dL (75-100) H 12/24/20 04:56 POC Glucose 204 mg/dL (70-105) H 12/24/20 05:17 Hemoglobin A1c 7.2 % (4-6) H 12/23/20 05:15 Calcium 8.9 mg/dL (8.4-10.2) 12/24/20 04:56 Total Bilirubin 0.70 mg/dL (0.1-1.2) 12/24/20 04:56 AST 44 units/L (5-40) H 12/24/20 04:56 ALT 105 units/L (7-56) H 12/24/20 04:56 Alkaline Phosphatase 52 units/L (35-129) 12/24/20 04:56 Lactate Dehydrogenase 10 units/L (91-180) L 12/20/20 11:31 Troponin T < 0.010 ng/mL (0.00-0.029) 12/21/20 18:26 C-Reactive Protein 1.10 mg/dL (0.00-1.30) 12/23/20 09:06 NT-Pro-B Natriuret Pep 6191 pg/mL (0-900) H 12/21/20 14:32 Total Protein 7.5 g/dL (6.3-8.2) 12/24/20 04:56 Albumin 3.5 g/dL (3.9-5) L 12/24/20 04:56 Albumin/Globulin Ratio 0.9 % 12/24/20 04:56 Triglycerides 226 mg/dL (2-149) H 12/20/20 11:31 Cholesterol 175 mg/dL (50-199) 12/20/20 11:31 LDL Cholesterol Direct 98 mg/dL (50-130) 12/20/20 11:31 HDL Cholesterol 31 mg/dL (40-59) L 12/20/20 11:31 Cholesterol/HDL Ratio 5.64 % 12/20/20 11:31 Procalcitonin 1.45 ng/mL (<0.15) 12/20/20 11:31 PTH Intact 109.4 pg/mL (15-65) H 12/23/20 05:15 Arterial Blood Glucose 286 mg/dL (65-95) H 12/23/20 13:06 Urine Color Straw (Yellow) 12/23/20 00:40 Urine Turbidity Clear (Clear) 12/23/20 00:40 Urine pH 5.0 (5.0-7.0) 12/23/20 00:40 Ur Specific [place] 1.030 (1.003-1.030) 12/23/20 00:40 Urine Protein 30 mg/dl mg/dL (Negative) 12/23/20 00:40 Urine Glucose (UA) Negative mg/dL (Negative) 12/23/20 00:40 Urine Ketones Negative mg/dL (Negative) 12/23/20 00:40 Urine Blood Negative (Negative) 12/23/20 00:40 Urine Nitrite Negative (Negative) 12/23/20 00:40 Ur Reducing Substances Not Reportable 12/23/20 00:40 Urine Bilirubin Negative (Negative) 12/23/20 00:40 Urine Ictotest Not Reportable 12/23/20 00:40 Urine Urobilinogen < 2.0 mg/dL (<2.0) 12/23/20 00:40 Ur Leukocyte Esterase Negative (Negative) 12/23/20 00:40 Urine WBC (Auto) 8.0 /HPF (0.0-6.0) H 12/23/20 00:40 Urine RBC (Auto) 1.0 /HPF (0.0-6.0) 12/23/20 00:40 U Epithel Cells (Auto) < 1.0 /HPF (0-13.0) 12/23/20 00:40 Hyaline Casts 1 /LPF 12/23/20 00:40 Urine Mucus Few /HPF 12/23/20 00:40 Urine Eosinophils None seen (None Seen) 12/23/20 00:40 Urine Creatinine 134.1 mg/dL (0.1-20.0) H 12/23/20 00:40 Protein/Creatinin Ratio 0.37 12/23/20 00:40 Urine Sodium 26 mmol/L 12/23/20 00:40 Urine Total Protein 50 mg/dL (5-11.8) H 12/23/20 00:40 Coronavirus (PCR) Positive (Negative) A 12/21/20 Unknown Murray/IV: Voiding Method Urinal Active Medications - Current Medications Current Medications: Generic Name Dose Route Start Last Admin Trade Name Freq PRN Reason Stop Dose Admin Acetaminophen 650 mg 12/20/20 12:52 Acetaminophen 325 Mg Tab PO Q4H PRN Pain MILD(1-3)/Fever >100.5/KWON Ascorbic Acid 500 mg 12/20/20 22:00 12/24/20 10:08 Ascorbic Acid 500 Mg Tab PO 500 mg BID GUSTAVO Administration Cholecalciferol 1,000 unit 12/21/20 10:00 12/24/20 10:08 Cholecalciferol (Vit D3) 1000 Unit (25 Mcg) Tab PO 1,000 unit QDAY GUSTAVO Administration Enoxaparin Sodium 150 mg 12/21/20 22:00 12/24/20 10:09 Enoxaparin 150 Mg/1 Ml Inj SUB-Q 150 mg Q12HR GUSTAVO Administration Hydralazine HCl 10 mg 12/22/20 17:56 12/22/20 19:01 Hydralazine 20 Mg/1 Ml Inj IV 10 mg Q6H PRN Administration Hypertension Hydromorphone HCl 0.5 mg 12/20/20 12:52 Hydromorphone 1 Mg/1 Ml Inj IV Q23H PRN Pain , Severe (7-10) Ceftriaxone Sodium 2 gm in 100 mls @ 200 mls/hr 12/21/20 00:00 12/24/20 00:33 Rocephin/Ns 2 Gm/100 Ml IV 12/25/20 03:59 200 mls/hr Q24H GUSTAVO Administration Protocol Azithromycin 500 mg in 250 mls @ 250 mls/hr 12/21/20 12:00 12/23/20 13:10 Zithromax/Ns IV 12/24/20 12:59 250 mls/hr Q24H GUSTAVO Administration Protocol REMDESIVIR 100 mg/ Sodium 250 mls @ 500 mls/hr 12/22/20 21:00 12/23/20 21:57 Chloride IV 12/25/20 21:29 500 mls/hr Q24HR@2100 GUSTAVO Administration Insulin Human Lispro 0 unit 12/23/20 12:00 12/24/20 05:35 Insulin Lispro 100 Unit/Ml SUB-Q 4 unit Q6HR GUSTAVO Administration Protocol Insulin Human Regular 10 units 12/24/20 11:30 Insulin Regular, Human 100 Units/1 Ml IV 12/24/20 11:31 ONCE ONE Methylprednisolone Sodium Succinate 80 mg 12/21/20 12:00 12/24/20 05:35 Methylprednisolone Sod Succinate 125 Mg/2 Ml Inj IV 12/31/20 06:01 80 mg Q8HR GUSTAVO Administration Metoprolol Tartrate 50 mg 12/21/20 16:00 12/24/20 10:08 Metoprolol Tartrate 50 Mg Tab PO 50 mg BID GUSTAVO Administration Ondansetron HCl 4 mg 12/20/20 12:52 Ondansetron 4 Mg/2 Ml Inj IV Q8H PRN Nausea And Vomiting Oxycodone/Acetaminophen 1 tab 12/20/20 12:52 12/22/20 22:12 Oxycodone /Acetaminophen 5-325mg Tab PO 1 tab Q12H PRN Administration Pain, Moderate (4-6) Sodium Chloride 10 ml 12/20/20 22:00 12/24/20 10:08 Sodium Chloride 0.9% 10 Ml Flush Syringe IV 10 ml BID GUSTAVO Administration Sodium Chloride 10 ml 12/20/20 12:52 Sodium Chloride 0.9% 10 Ml Flush Syringe IV PRN PRN LINE FLUSH Sodium Chloride 50 ml 12/22/20 21:00 12/23/20 22:00 Sodium Chloride 0.9% 50 Ml Ivpb IV 12/25/20 21:01 50 ml Q24HR@2100 GUSTAVO Administration Sodium Polystyrene Sulfonate 30 gm 12/24/20 11:30 Sodium Polystyrene 15 Gm/60 Ml Oral Liqd PO 12/24/20 11:31 ONCE ONE Zinc Sulfate 220 mg 12/20/20 22:00 12/24/20 10:09 Zinc Sulfate 220 Mg Cap PO 220 mg BID GUSTAVO Administration
[2020-12-24] MEDS ORDERED: SODIUM POLYSTYRENE 15 GM/60 ML ORAL LIQD PO ONE (11:30)
[2020-12-24] MEDS ORDERED: INSULIN REGULAR, HUMAN 100 UNITS/1 ML IV ONE (11:30)
[2020-12-24] MEDS: AZITHROMYCIN/NS 500 MG/250 ML 500 MG/250 ML BAG IV SCH (12:16)
--- NOTE | 2020-12-24 14:03 | Progress Note ---
Assessment and Plan 1. Acute kidney injury: NAVJOT in the setting of Covid-19 infection and sepsis. Suspect ATN. Baseline renal function is unknown. Low FeNa. Renal US negative. Monitor renal function. Creatinine level improving for the past 2 days. Avoid nephrotoxic agents. Meds dosage based on GFR. 2. FEN: Monitor lytes and volume status. 3. Acute hypoxic resp failure, POA: 2/ Covid-19 PNA. Test positive for Covid-19. Per pt he received J&J vaccine in Mar 2020. On HFNC O2. Followed by Pulmonary. 4. Covid-19 PNA, POA: Test positive for Covid-19. Per pt he received J&J vaccine in Mar 2020. On Abx, Solumedrol and Remdesivir. Monitor. 5. Sepsis, POA: 04/26 Covid-19 pneumonia. Abx. Followed by ID. 6. HTN: Monitor BP. Adjust meds as needed. 7. DM / Elevated bl glu: A1C 7.2. Monitor. Subjective: Patient was seen and examined at the bedside. Examination: General appearance: well-developed, appears stated age, obese, on HFNC O2 HEENT: atraumatic Neck: trachea midline Respiratory: coarse breath sounds Heart: S1S2, regular, no murmur Abdomen: soft, obese, bowel sounds heard, NT Integumentary: no rash Neurologic: alert, moving extremities Ext: no edema Subjective Date of service: 12/24/20 Principal diagnosis: COVID-19 PNA Objective - Vital Signs Vital signs: Vital Signs - 12hr 12/24/20 12/24/20 12/24/20 02:20 02:30 03:01 Temperature Pulse Rate 85 81 Respiratory 30 H 34 H Rate Blood Pressure 152/77 128/60 O2 Sat by Pulse 94 93 91 Oximetry 12/24/20 12/24/20 12/24/20 04:01 04:20 04:35 Temperature Pulse Rate 80 87 84 Respiratory 31 H 20 21 Rate Blood Pressure 168/93 168/93 O2 Sat by Pulse 95 91 90 Oximetry 12/24/20 12/24/20 12/24/20 05:00 06:00 07:00 Temperature Pulse Rate 83 96 H 82 Respiratory 24 24 22 Rate Blood Pressure 145/89 154/91 133/65 O2 Sat by Pulse 92 87 93 Oximetry 10/05/1512/24/20 12/24/20 08:00 08:01 09:00 Temperature 99.6 F Pulse Rate 90 93 H 88 Respiratory 28 H 27 H Rate Blood Pressure 137/83 129/79 O2 Sat by Pulse 98 90 Oximetry 12/24/20 12/24/20 12/24/20 10:00 10:08 11:01 Temperature Pulse Rate 83 91 H 83 Respiratory 30 H 41 H Rate Blood Pressure 136/74 136/74 159/98 O2 Sat by Pulse 89 94 Oximetry 12/24/20 12/24/20 12:00 12:01 Temperature 99.3 F Pulse Rate 69 83 Respiratory 29 H Rate Blood Pressure 141/88 O2 Sat by Pulse 100 89 Oximetry - Lab 12/22/20 05:56 12/24/20 04:56 Most recent lab results ABG pH 7.446 (7.320-7.450) 12/23/20 13:06 ABG O2 Saturation 89.8 (0-100) 12/23/20 13:06 Calcium 8.9 mg/dL (8.4-10.2) 12/24/20 04:56 Urine Creatinine 134.1 mg/dL (0.1-20.0) H 12/23/20 00:40 Urine Sodium 26 mmol/L 12/23/20 00:40 Urine Total Protein 50 mg/dL (5-11.8) H 12/23/20 00:40 Medications & Allergies - Medications Allergies/Adverse Reactions: Allergies No Known Allergies Allergy (Verified 12/21/20 05:36) Home Medications: Home Medications Medication Instructions Recorded Confirmed Last Taken Type Losartan [Cozaar] 50 mg PO QDAY 12/20/20 12/20/20 12/20/20 07:00 History 50 Active Medications: Generic Name Dose Route Start Last Admin Trade Name Freq PRN Reason Stop Dose Admin Acetaminophen 650 mg 12/20/20 12:52 Acetaminophen 325 Mg Tab PO Q4H PRN Pain MILD(1-3)/Fever >100.5/KWON Ascorbic Acid 500 mg 12/20/20 22:00 12/24/20 10:08 Ascorbic Acid 500 Mg Tab PO 500 mg BID GUSTAVO Administration Cholecalciferol 1,000 unit 12/21/20 10:00 12/24/20 10:08 Cholecalciferol (Vit D3) 1000 Unit (25 Mcg) Tab PO 1,000 unit QDAY GUSTAVO Administration Enoxaparin Sodium 150 mg 12/21/20 22:00 12/24/20 10:09 Enoxaparin 150 Mg/1 Ml Inj SUB-Q 150 mg Q12HR GUSTAVO Administration Hydralazine HCl 10 mg 12/22/20 17:56 12/22/20 19:01 Hydralazine 20 Mg/1 Ml Inj IV 10 mg Q6H PRN Administration Hypertension Hydromorphone HCl 0.5 mg 12/20/20 12:52 Hydromorphone 1 Mg/1 Ml Inj IV Q23H PRN Pain , Severe (7-10) Ceftriaxone Sodium 2 gm in 100 mls @ 200 mls/hr 12/21/20 00:00 12/24/20 00:33 Rocephin/Ns 2 Gm/100 Ml IV 12/25/20 03:59 200 mls/hr Q24H GUSTAVO Administration Protocol REMDESIVIR 100 mg/ Sodium 250 mls @ 500 mls/hr 12/22/20 21:00 12/23/20 21:57 Chloride IV 12/25/20 21:29 500 mls/hr Q24HR@2100 GUSTAVO Administration Insulin Human Lispro 0 unit 12/23/20 12:00 12/24/20 12:13 Insulin Lispro 100 Unit/Ml SUB-Q 4 unit Q6HR GUSTAVO Administration Protocol Methylprednisolone Sodium Succinate 80 mg 12/21/20 12:00 12/24/20 05:35 Methylprednisolone Sod Succinate 125 Mg/2 Ml Inj IV 12/31/20 06:01 80 mg Q8HR GSUTAVO Administration Metoprolol Tartrate 50 mg 12/21/20 16:00 12/24/20 10:08 Metoprolol Tartrate 50 Mg Tab PO 50 mg BID GUSTAVO Administration Ondansetron HCl 4 mg 12/20/20 12:52 Ondansetron 4 Mg/2 Ml Inj IV Q8H PRN Nausea And Vomiting Oxycodone/Acetaminophen 1 tab 12/20/20 12:52 12/22/20 22:12 Oxycodone /Acetaminophen 5-325mg Tab PO 1 tab Q12H PRN Administration Pain, Moderate (4-6) Sodium Chloride 10 ml 12/20/20 22:00 12/24/20 10:08 Sodium Chloride 0.9% 10 Ml Flush Syringe IV 10 ml BID GUSTAVO Administration Sodium Chloride 10 ml 12/20/20 12:52 Sodium Chloride 0.9% 10 Ml Flush Syringe IV PRN PRN LINE FLUSH Sodium Chloride 50 ml 12/22/20 21:00 12/23/20 22:00 Sodium Chloride 0.9% 50 Ml Ivpb IV 12/25/20 21:01 50 ml Q24HR@2100 GUSTAVO Administration Zinc Sulfate 220 mg 12/20/20 22:00 12/24/20 10:09 Zinc Sulfate 220 Mg Cap PO 220 mg BID GUSTAVO Administration
--- NOTE | 2020-12-24 17:02 | Progress Note ---
Assessment and Plan Imp: 1. Viral pneumonia 2/2 Covid-19 2. Morbid obesity 3. Acute respiratory failure, hypoxia 4. NAVJOT Rec: 1. Cont. IV steroids x 10 days 2. Full dose anticoagulation 3. Completing 5 days of empiric ABX and Remdesivir 4. BIPAP QHS and PRN; wean O2 to keep sats 88% or > 5. Prognosis guarded to poor Subjective Date of service: 12/24/20 Principal diagnosis: COVID-19 PNA Interval history: No events. Awake, alert, on HFNC and NRB. + SOB. Active Medications Acetaminophen (Acetaminophen 325 Mg Tab) 650 mg PO Q4H PRN PRN Reason: Pain MILD(1-3)/Fever >100.5/KWON Ascorbic Acid (Ascorbic Acid 500 Mg Tab) 500 mg PO BID [facility] Last Admin: 12/24/20 10:08 Dose: 500 mg Documented by: Cholecalciferol (Cholecalciferol (Vit D3) 1000 Unit (25 Mcg) Tab) 1,000 unit PO QDAY [facility] Last Admin: 12/24/20 10:08 Dose: 1,000 unit Documented by: Enoxaparin Sodium (Enoxaparin 150 Mg/1 Ml Inj) 150 mg SUB-Q Q12HR [facility] Last Admin: 12/24/20 10:09 Dose: 150 mg Documented by: Hydralazine HCl (Hydralazine 20 Mg/1 Ml Inj) 10 mg IV Q6H PRN PRN Reason: Hypertension Last Admin: 12/22/20 19:01 Dose: 10 mg Documented by: Hydromorphone HCl (Hydromorphone 1 Mg/1 Ml Inj) 0.5 mg IV Q23H PRN PRN Reason: Pain , Severe (7-10) Ceftriaxone Sodium (Rocephin/Ns 2 Gm/100 Ml) 2 gm in 100 mls @ 200 mls/hr IV Q24H [facility]; Protocol Stop: 12/25/20 03:59 Last Admin: 12/24/20 00:33 Dose: 200 mls/hr Documented by: REMDESIVIR 100 mg/ Sodium (Chloride) 250 mls @ 500 mls/hr IV Q24HR@2100 [facility] Stop: 12/25/20 21:29 Last Admin: 12/23/20 21:57 Dose: 500 mls/hr Documented by: Insulin Human Lispro (Insulin Lispro 100 Unit/Ml) 0 unit SUB-Q Q6HR [facility]; Protocol Last Admin: 12/24/20 12:13 Dose: 4 unit Documented by: Methylprednisolone Sodium Succinate (Methylprednisolone Sod Succinate 125 Mg/2 Ml Inj) 80 mg IV Q8HR [facility] Stop: 12/31/20 06:01 Last Admin: 12/24/20 14:35 Dose: 80 mg Documented by: Metoprolol Tartrate (Metoprolol Tartrate 50 Mg Tab) 50 mg PO BID [facility] Last Admin: 12/24/20 10:08 Dose: 50 mg Documented by: Ondansetron HCl (Ondansetron 4 Mg/2 Ml Inj) 4 mg IV Q8H PRN PRN Reason: Nausea And Vomiting Oxycodone/Acetaminophen (Oxycodone /Acetaminophen 5-325mg Tab) 1 tab PO Q12H PRN PRN Reason: Pain, Moderate (4-6) Last Admin: 12/22/20 22:12 Dose: 1 tab Documented by: Sodium Chloride (Sodium Chloride 0.9% 10 Ml Flush Syringe) 10 ml IV BID [facility] Last Admin: 12/24/20 10:08 Dose: 10 ml Documented by: Sodium Chloride (Sodium Chloride 0.9% 10 Ml Flush Syringe) 10 ml IV PRN PRN PRN Reason: LINE FLUSH Sodium Chloride (Sodium Chloride 0.9% 50 Ml Ivpb) 50 ml IV Q24HR@2100 [facility] Stop: 12/25/20 21:01 Last Admin: 12/23/20 22:00 Dose: 50 ml Documented by: Zinc Sulfate (Zinc Sulfate 220 Mg Cap) 220 mg PO BID [facility] Last Admin: 12/24/20 10:09 Dose: 220 mg Documented by: Objective - Exam Narrative Exam: Exam deferred to preserve PPE and decrease transmission of virus. Reviewed primary team exam. Vital Signs - 12hr 12/24/20 12/24/20 12/24/20 05:00 06:00 07:00 Temperature Pulse Rate 83 96 H 82 Respiratory 24 24 22 Rate Blood Pressure 145/89 154/91 133/65 O2 Sat by Pulse 92 87 93 Oximetry 12/24/20 12/24/20 12/24/20 08:00 08:01 09:00 Temperature 99.6 F Pulse Rate 90 93 H 88 Respiratory 28 H 27 H Rate Blood Pressure 137/83 129/79 O2 Sat by Pulse 98 90 Oximetry 12/24/20 12/24/20 12/24/20 10:00 10:08 11:01 Temperature Pulse Rate 83 91 H 83 Respiratory 30 H 41 H Rate Blood Pressure 136/74 136/74 159/98 O2 Sat by Pulse 89 94 Oximetry 12/24/20 12/24/20 12/24/20 12:00 12:01 13:01 Temperature 99.3 F Pulse Rate 69 83 92 H Respiratory 29 H 29 H Rate Blood Pressure 141/88 167/101 O2 Sat by Pulse 100 89 92 Oximetry 12/24/20 12/24/20 12/24/20 14:00 15:00 16:00 Temperature 98.8 F Pulse Rate 96 H 94 H 89 Respiratory 30 H 28 H 23 Rate Blood Pressure 144/93 146/90 167/96 O2 Sat by Pulse 89 86 91 Oximetry 12/24/20 16:11 Temperature Pulse Rate Respiratory Rate Blood Pressure O2 Sat by Pulse 90 Oximetry CBC and BMP: 12/22/20 05:56 12/24/20 04:56 ABG, PT/INR, D-dimer: ABG ABG pH 7.446 (7.320-7.450) 12/23/20 13:06 POC ABG pCO2 29.6 mmHg (32.0-48.0) L 12/23/20 13:06 POC ABG pO2 57.8 mmHg (83-108) L 12/23/20 13:06 POC ABG HCO3 19.9 12/23/20 13:06 ABG O2 Saturation 89.8 (0-100) 12/23/20 13:06 PT/INR, D-dimer D-Dimer > 17350 ng/mlDDU (0-234) H 12/20/20 11:31 Abnormal lab findings: Abnormal Labs 12/20/20 12/20/20 12/20/20 11:31 11:31 11:31 WBC 16.5 H RBC 5.27 H Hgb Hct Seg Neuts % (Manual) 90.0 H Lymphocytes % (Manual) 5.0 L Nucleated RBC % Seg Neutrophils # Man 14.9 H Lymphocytes # (Manual) 0.8 L D-Dimer > 80777 H POC ABG pCO2 POC ABG pO2 ABG Oxyhemoglobin ABG Potassium ABG Glucose Sodium 130 L Potassium Chloride 94.5 L Carbon Dioxide BUN 64 H Creatinine 2.6 H Glucose 154 H POC Glucose Hemoglobin A1c Calcium AST ALT Lactate Dehydrogenase Troponin T C-Reactive Protein NT-Pro-B Natriuret Pep Albumin 3.5 L Triglycerides HDL Cholesterol PTH Intact Arterial Blood Glucose Urine WBC (Auto) Urine Creatinine Urine Total Protein Coronavirus (PCR) 12/20/20 12/21/20 12/21/20 11:31 06:10 06:10 WBC 20.1 H RBC 5.55 H Hgb 15.4 H Hct 47.3 H Seg Neuts % (Manual) 89.0 H Lymphocytes % (Manual) Nucleated RBC % 1.0 H Seg Neutrophils # Man 17.9 H Lymphocytes # (Manual) 0.0 L D-Dimer POC ABG pCO2 POC ABG pO2 ABG Oxyhemoglobin ABG Potassium ABG Glucose Sodium 136 L Potassium Chloride Carbon Dioxide BUN 57 H Creatinine 1.8 H Glucose 193 H POC Glucose Hemoglobin A1c Calcium AST ALT Lactate Dehydrogenase 10 L Troponin T 0.106 H* C-Reactive Protein 5.20 H NT-Pro-B Natriuret Pep Albumin Triglycerides 226 H HDL Cholesterol 31 L PTH Intact Arterial Blood Glucose Urine WBC (Auto) Urine Creatinine Urine Total Protein Coronavirus (PCR) 12/21/20 12/21/20 12/21/20 13:29 14:32 Unknown WBC RBC Hgb Hct Seg Neuts % (Manual) Lymphocytes % (Manual) Nucleated RBC % Seg Neutrophils # Man Lymphocytes # (Manual) D-Dimer POC ABG pCO2 POC ABG pO2 ABG Oxyhemoglobin ABG Potassium ABG Glucose Sodium 134 L Potassium Chloride Carbon Dioxide BUN 57 H Creatinine 1.8 H Glucose 340 H POC Glucose Hemoglobin A1c Calcium 8.3 L AST ALT Lactate Dehydrogenase Troponin T C-Reactive Protein NT-Pro-B Natriuret Pep 6191 H Albumin 3.3 L Triglycerides HDL Cholesterol PTH Intact Arterial Blood Glucose Urine WBC (Auto) Urine Creatinine Urine Total Protein Coronavirus (PCR) Positive A 12/22/20 12/22/20 12/22/20 05:56 05:56 17:21 WBC 26.6 H RBC 5.22 H Hgb Hct Seg Neuts % (Manual) Lymphocytes % (Manual) Nucleated RBC % Seg Neutrophils # Man Lymphocytes # (Manual) D-Dimer POC ABG pCO2 POC ABG pO2 ABG Oxyhemoglobin ABG Potassium ABG Glucose Sodium Potassium Chloride Carbon Dioxide BUN 64 H Creatinine 2.0 H Glucose 227 H POC Glucose 188 H Hemoglobin A1c Calcium AST ALT Lactate Dehydrogenase Troponin T C-Reactive Protein NT-Pro-B Natriuret Pep Albumin 3.4 L Triglycerides HDL Cholesterol PTH Intact Arterial Blood Glucose Urine WBC (Auto) Urine Creatinine Urine Total Protein Coronavirus (PCR) 12/23/20 12/23/20 12/23/20 00:40 00:40 05:15 WBC RBC Hgb Hct Seg Neuts % (Manual) Lymphocytes % (Manual) Nucleated RBC % Seg Neutrophils # Man Lymphocytes # (Manual) D-Dimer POC ABG pCO2 POC ABG pO2 ABG Oxyhemoglobin ABG Potassium ABG Glucose Sodium Potassium 5.6 H Chloride Carbon Dioxide BUN 71 H Creatinine 1.8 H Glucose 225 H POC Glucose Hemoglobin A1c Calcium AST 46 H ALT 83 H Lactate Dehydrogenase Troponin T C-Reactive Protein NT-Pro-B Natriuret Pep Albumin 3.6 L Triglycerides HDL Cholesterol PTH Intact Arterial Blood Glucose Urine WBC (Auto) 8.0 H Urine Creatinine 134.1 H Urine Total Protein 50 H Coronavirus (PCR) 12/23/20 12/23/20 12/23/20 05:15 05:15 11:47 WBC RBC Hgb Hct Seg Neuts % (Manual) Lymphocytes % (Manual) Nucleated RBC % Seg Neutrophils # Man Lymphocytes # (Manual) D-Dimer POC ABG pCO2 POC ABG pO2 ABG Oxyhemoglobin ABG Potassium ABG Glucose Sodium Potassium Chloride Carbon Dioxide BUN Creatinine Glucose POC Glucose 257 H Hemoglobin A1c 7.2 H Calcium AST ALT Lactate Dehydrogenase Troponin T C-Reactive Protein NT-Pro-B Natriuret Pep Albumin Triglycerides HDL Cholesterol PTH Intact 109.4 H Arterial Blood Glucose Urine WBC (Auto) Urine Creatinine Urine Total Protein Coronavirus (PCR) 12/23/20 12/23/20 12/24/20 13:06 16:41 00:02 WBC RBC Hgb Hct Seg Neuts % (Manual) Lymphocytes % (Manual) Nucleated RBC % Seg Neutrophils # Man Lymphocytes # (Manual) D-Dimer POC ABG pCO2 29.6 L POC ABG pO2 57.8 L ABG Oxyhemoglobin 88.9 L ABG Potassium 4.7 H ABG Glucose 286 H Sodium Potassium Chloride Carbon Dioxide BUN Creatinine Glucose POC Glucose 199 H 213 H Hemoglobin A1c Calcium AST ALT Lactate Dehydrogenase Troponin T C-Reactive Protein NT-Pro-B Natriuret Pep Albumin Triglycerides HDL Cholesterol PTH Intact Arterial Blood Glucose 286 H Urine WBC (Auto) Urine Creatinine Urine Total Protein Coronavirus (PCR) 12/24/20 12/24/20 12/24/20 04:56 05:17 12:03 WBC RBC Hgb Hct Seg Neuts % (Manual) Lymphocytes % (Manual) Nucleated RBC % Seg Neutrophils # Man Lymphocytes # (Manual) D-Dimer POC ABG pCO2 POC ABG pO2 ABG Oxyhemoglobin ABG Potassium ABG Glucose Sodium Potassium 5.4 H Chloride Carbon Dioxide 18 L D BUN 74 H Creatinine 1.6 H Glucose 228 H POC Glucose 204 H 218 H Hemoglobin A1c Calcium AST 44 H ALT 105 H Lactate Dehydrogenase Troponin T C-Reactive Protein NT-Pro-B Natriuret Pep Albumin 3.5 L Triglycerides HDL Cholesterol PTH Intact Arterial Blood Glucose Urine WBC (Auto) Urine Creatinine Urine Total Protein Coronavirus (PCR) Allied health notes reviewed: nursing
[2020-12-24] MEDS: REMDESIVIR 100 MG in SODIUM CHLORIDE 0.9% 250ML 250 ML IV SCH (21:37)
[2020-12-24] MEDS: SODIUM CHLORIDE 0.9% 50 ML IVPB IV SCH (21:38)
[2020-12-25] MEDS ORDERED: cefTRIAXone/NS 2 GM/100 ML 2 GM/100 ML BAG IV ONE (00:49)
[2020-12-25] MEDS: cefTRIAXone/NS 2 GM/100 ML 2 GM/100 ML BAG IV SCH (00:50)
[2020-12-25 05:18] LABS: BUN/Creatinine Ratio 45; Blood Urea Nitrogen 58 mg/dL (9-20); Hemolysis Index 69
[2020-12-25] MEDS: methylPREDNISolone Sod Succinate 125 MG/2 ML INJ IV SCH ×3 (06:13→21:47)
[2020-12-25] MEDS: INSULIN LISPRO 100 UNIT/ML SUB-Q SCH ×4 (06:14→23:34)
--- NOTE | 2020-12-25 09:38 | Progress Note ---
Assessment and Plan Assessment and plan: 50 YO Male with HTN, CHF, Obesity Hypoventilation Syndrome, Medication Noncompliance, Coronivirus Infection Diagnosed 1week ago presents to ED for evaluation. Patient reports "I cannot breathe". Patient states that he has experienced fatigue, shortness of breath, dry cough, decreased exercise tolerance, diminished sense of smell, diminished sense of taste over the past 1 week with persistent and worsening symptoms over the same timeframe. Patient is currently incarcerated and was seen by medical staff at the [facility] and was found to have a pulse oximetry in the 60s this a.m. EMS was notified and upon arrival the patient was found to be in respiratory distress and placed on supplemental oxygen via nonrebreather mask and subsequently transported to [facility] for further care and evaluation of the aforementioned symptoms. The patient was seen and evaluated in the emergency department. All lab and imaging studies reviewed. The patient was found to have a pulse oximetry of 78% on nonrebreathe r mask which is consistent with acute hypoxemic respiratory failure. Chest x- ray revealed bilateral pneumonia. The patient was admitted to medical floor and initiated on pneumonia protocol as well as coronavirus protocol. The patient was placed on high flow supplemental oxygen in the emergency department. Patient denies fever, chills, chest pain, palpitations, skin rash, recent ill contacts, unilateral leg swelling, calf pain, individual/family history of DVT/PE/bleeding/blood clotting disorders. No prior admission for review. No medication listed at time of admission for reconciliation. VQ scan ordered at time of admission and is currently pending. (1) Acute respiratory failure with hypoxia Current Visit: Yes Status: Acute Plan to address problem: Chest x-ray, VQ scan, high flow supplemental oxygen, pulse oximetry, will consider noninvasive positive pressure ventilation if patient is unable to maintain pulse oximetry on high flow supplemental oxygen. Pulmonary team consulted. (2) Coronavirus infection Current Visit: Yes Status: Acute Plan to address problem: Coronavirus protocol: IV steroid therapy, IV antibiotic therapy, supplemental oxygen, pulse oximetry, contact precautions, isolation precautions, vitamin C therapy, vitamin D therapy, zinc therapy, prophylactic anticoagulation. (3) Obesity hypoventilation syndrome Current Visit: Yes Status: Acute Plan to address problem: Balanced diet, increase physical activity discharge, outpatient pulmonary follow-up for sleep study. (4) Pneumonia Current Visit: Yes Status: Acute Plan to address problem: Pneumonia protocol: Chest x-ray, CBC, CMP, supplemental oxygen, pulse oximetry, nebulizer therapy, blood culture. (5) stable congestive heart failure (6) Acute kidney failure with vasomotor nephropathy (7) DVT prophylaxis Current Visit: Yes Status: Acute Plan to address problem: SCDs bilateral lower extremities while in bed, prophylactic anticoagulation (8) Advance care planning Current Visit: Yes Status: Acute Plan to address problem: Disease education conducted, care plan discussed, diagnoses discussed, prognosis discussed, patient counseled regarding coronavirus vaccination within 90 days of discharge. Patient is full code, +30 minutes. 12/21: Continue supportive care, wean oxygen as tolerated, Pulmonary, Nephrology, ID input. Renal improving. Continue steroids, defer Remedesivir to the ID. CPAP at night due to CARINA 12/22: Patient remains persistently hypoxic, going to be moving the patient down to the IMCU as he is satting 86% on nonrebreather and also high flow. Prognosis very poor. 12/23: : Continue IMCU. Continue reinforcement for the patient management plan. Continue steroids and remdesivir. Monitor blood sugar closely. Poor prognosis 12/24: Extensive discussion about the patient to be compliant with management p emmanuelle. Noted hyperkalemia Kayexalate ordered already for the patient. 12/25: Patient remains with poor prognosis hyperkalemia persisted despite improving renal function. Follow-up Kayexalate has been given this morning. Blood sugar still elevated this could be steroid-induced versus underlying diabe kasia we will check an A1c and in the meantime we will add Lantus at nighttime for better coverage. cct 35mins. History Interval history: Patient seen and examined was on BiPAP this morning yesterday tolerating high flow nonrebreather still 100% performed Hospitalist Physical - Physical exam Narrative exam: VITAL SIGNS: Reviewed. GENERAL: The patient appears normally developed, morbidly obese on BiPAP vital signs as documented. HEAD: No signs of head trauma. EYES: Pupils are equal. Extraocular motions intact. EARS: Hearing grossly intact. MOUTH: Oropharynx is normal. NECK: No adenopathy, no JVD. CHEST: Chest with diminished breath sounds bilaterally. No wheezes, rales, or rhonchi. CARDIAC: Regular rate and rhythm. S1 and S2, without murmurs, gallops, or rubs. VASCULAR: No Edema. Peripheral pulses normal and equal in all extremities. ABDOMEN: Soft, non tender and non distended. No rebound or guarding, and no masses palpated. Bowel Sounds normal. MUSCULOSKELETAL: Good range of motion of all major joints. Extremities without clubbing, cyanosis or edema. NEUROLOGIC EXAM: Alert and oriented x 3 No focal sensory or strength deficits. Speech normal. Follows commands. PSYCHIATRIC: Mood normal. SKIN: detail exam as documented in skin assessment - Constitutional Vitals: Temp Pulse Resp BP Pulse Ox 99.7 F H 101 H 25 H 168/72 92 12/25/20 07:04 12/25/20 09:01 12/25/20 09:01 12/25/20 09:01 12/25/20 09:07 General appearance: Present: no acute distress HEART Score - HEART Score Troponin: Troponin T < 0.010 ng/mL (0.00-0.029) 12/21/20 18:26 Results - Labs CBC & Chem 7: 12/22/20 05:56 12/25/20 04:44 Labs: Laboratory Last Values WBC 26.6 K/mm3 (4.5-11.0) H 12/22/20 05:56 RBC 5.22 M/mm3 (3.65-5.03) H 12/22/20 05:56 Hgb 14.4 gm/dl (11.8-15.2) 12/22/20 05:56 Hct 44.4 % (35.5-45.6) 12/22/20 05:56 MCV 85 fl (84-94) 12/22/20 05:56 MCH 28 pg (28-32) 12/22/20 05:56 MCHC 33 % (32-34) 12/22/20 05:56 RDW 14.3 % (13.2-15.2) 12/22/20 05:56 Plt Count 145 K/mm3 (140-440) 12/22/20 05:56 Add Manual Diff Complete 12/21/20 06:10 Total Counted 100 12/21/20 06:10 Seg Neuts % (Manual) 89.0 % (40.0-70.0) H 12/21/20 06:10 Band Neutrophils % 3.0 % 12/21/20 06:10 Lymphocytes % (Manual) 5.0 % (13.4-35.0) L 12/20/20 11:31 Reactive Lymphs % (Man) 2.0 % 12/21/20 06:10 Monocytes % (Manual) 1.0 % (0.0-7.3) 12/21/20 06:10 Myelocytes % 4.0 % 12/21/20 06:10 Blast Cells % 1.0 % 12/21/20 06:10 Nucleated RBC % 1.0 % (0.0-0.9) H 12/21/20 06:10 Seg Neutrophils # Man 17.9 K/mm3 (1.8-7.7) H 12/21/20 06:10 Band Neutrophils # 0.6 K/mm3 12/21/20 06:10 Lymphocytes # (Manual) 0.0 K/mm3 (1.2-5.4) L 12/21/20 06:10 Abs React Lymphs (Man) 0.4 K/mm3 12/21/20 06:10 Monocytes # (Manual) 0.2 K/mm3 (0.0-0.8) 12/21/20 06:10 Eosinophils # (Manual) 0.0 K/mm3 (0.0-0.4) 12/21/20 06:10 Basophils # (Manual) 0.0 K/mm3 (0.0-0.1) 12/21/20 06:10 Metamyelocytes # 0.0 K/mm3 12/21/20 06:10 Myelocytes # 0.8 K/mm3 12/21/20 06:10 Promyelocytes # 0.0 K/mm3 12/21/20 06:10 Blast Cells # 0.1 K/mm3 12/21/20 06:10 WBC Morphology Not Reportable 12/21/20 06:10 Hypersegmented Neuts Not Reportable 12/21/20 06:10 Hyposegmented Neuts Not Reportable 12/21/20 06:10 Hypogranular Neuts Not Reportable 12/21/20 06:10 Smudge Cells Not Reportable 12/21/20 06:10 Toxic Granulation Not Reportable 12/21/20 06:10 Toxic Vacuolation Not Reportable 12/21/20 06:10 Dohle Bodies Not Reportable 12/21/20 06:10 Pelger-Huet Anomaly Not Reportable 12/21/20 06:10 Chantel Rods Not Reportable 12/21/20 06:10 Platelet Estimate Consistent w auto 12/21/20 06:10 Clumped Platelets Not Reportable 12/21/20 06:10 Plt Clumps, EDTA Not Reportable 12/21/20 06:10 Large Platelets Not Reportable 12/21/20 06:10 Giant Platelets Not Reportable 12/21/20 06:10 Platelet Satelliting Not Reportable 12/21/20 06:10 Plt Morphology Comment Not Reportable 12/21/20 06:10 RBC Morphology Not Reportable 12/21/20 06:10 Dimorphic RBCs Not Reportable 12/21/20 06:10 Polychromasia Not Reportable 12/21/20 06:10 Hypochromasia Not Reportable 12/21/20 06:10 Poikilocytosis Not Reportable 12/21/20 06:10 Anisocytosis Not Reportable 12/21/20 06:10 Microcytosis Not Reportable 12/21/20 06:10 Macrocytosis Not Reportable 12/21/20 06:10 Spherocytes Rare 12/21/20 06:10 Pappenheimer Bodies Not Reportable 12/21/20 06:10 Sickle Cells Not Reportable 12/21/20 06:10 Target Cells Rare 12/21/20 06:10 Tear Drop Cells Not Reportable 12/21/20 06:10 Ovalocytes Not Reportable 12/21/20 06:10 Helmet Cells Not Reportable 12/21/20 06:10 [place] Bodies Not Reportable 12/21/20 06:10 [place] Rings Not Reportable 12/21/20 06:10 Roslyn Cells Not Reportable 12/21/20 06:10 Bite Cells Not Reportable 12/21/20 06:10 Crenated Cell Not Reportable 12/21/20 06:10 Elliptocytes Not Reportable 12/21/20 06:10 Acanthocytes (Spur) Not Reportable 12/21/20 06:10 Rouleaux Not Reportable 12/21/20 06:10 Hemoglobin C Crystals Not Reportable 12/21/20 06:10 Schistocytes Not Reportable 12/21/20 06:10 Malaria parasites Not Reportable 12/21/20 06:10 Andrew Bodies Not Reportable 12/21/20 06:10 Hem Pathologist Commnt No 12/21/20 06:10 D-Dimer > 52109 ng/mlDDU (0-234) H 12/20/20 11:31 ABG pH 7.446 (7.320-7.450) 12/23/20 13:06 POC ABG pCO2 29.6 mmHg (32.0-48.0) L 12/23/20 13:06 POC ABG pO2 57.8 mmHg (83-108) L 12/23/20 13:06 POC ABG HCO3 19.9 12/23/20 13:06 ABG O2 Saturation 89.8 (0-100) 12/23/20 13:06 POC ABG Base Excess -2.8 12/23/20 13:06 ABG Hemoglobin 15.3 (12.0-17.5) 12/23/20 13:06 ABG Oxyhemoglobin 88.9 (94-98) L 12/23/20 13:06 ABG Methemoglobin 0.3 (0.0-1.5) 12/23/20 13:06 ABG Sodium 140.6 mmol/L (136.0-145.0) 12/23/20 13:06 ABG Potassium 4.7 mmol/L (3.40-4.50) H 12/23/20 13:06 ABG Chloride 107.0 mmol/L (98-107) 12/23/20 13:06 ABG Glucose 286 mg/dL (65-95) H 12/23/20 13:06 Carboxyhemoglobin 0.7 (0.5-1.5) 12/23/20 13:06 FiO2 % 80.0 12/23/20 13:06 Sodium 144 mmol/L (137-145) 12/25/20 04:44 Potassium 5.5 mmol/L (3.6-5.0) H 12/25/20 04:44 Chloride 106.4 mmol/L (98-107) 12/25/20 04:44 Carbon Dioxide 26 mmol/L (22-30) D 12/25/20 04:44 Anion Gap 17 mmol/L 12/25/20 04:44 BUN 58 mg/dL (9-20) H 12/25/20 04:44 Creatinine 1.3 mg/dL (0.8-1.3) 12/25/20 04:44 Estimated GFR > 60 ml/min 12/25/20 04:44 BUN/Creatinine Ratio 45 % 12/25/20 04:44 Glucose 235 mg/dL (75-100) H 12/25/20 04:44 POC Glucose 191 mg/dL (70-105) H 12/25/20 06:11 Hemoglobin A1c 7.2 % (4-6) H 12/23/20 05:15 Calcium 9.0 mg/dL (8.4-10.2) 12/25/20 04:44 Total Bilirubin 0.70 mg/dL (0.1-1.2) 12/24/20 04:56 AST 44 units/L (5-40) H 12/24/20 04:56 ALT 105 units/L (7-56) H 12/24/20 04:56 Alkaline Phosphatase 52 units/L (35-129) 12/24/20 04:56 Lactate Dehydrogenase 10 units/L (91-180) L 12/20/20 11:31 Troponin T < 0.010 ng/mL (0.00-0.029) 12/21/20 18:26 C-Reactive Protein 1.10 mg/dL (0.00-1.30) 12/23/20 09:06 NT-Pro-B Natriuret Pep 6191 pg/mL (0-900) H 12/21/20 14:32 Total Protein 7.5 g/dL (6.3-8.2) 12/24/20 04:56 Albumin 3.5 g/dL (3.9-5) L 12/24/20 04:56 Albumin/Globulin Ratio 0.9 % 12/24/20 04:56 Triglycerides 226 mg/dL (2-149) H 12/20/20 11:31 Cholesterol 175 mg/dL (50-199) 12/20/20 11:31 LDL Cholesterol Direct 98 mg/dL (50-130) 12/20/20 11:31 HDL Cholesterol 31 mg/dL (40-59) L 12/20/20 11:31 Cholesterol/HDL Ratio 5.64 % 12/20/20 11:31 Procalcitonin 1.45 ng/mL (<0.15) 12/20/20 11:31 PTH Intact 109.4 pg/mL (15-65) H 12/23/20 05:15 Arterial Blood Glucose 286 mg/dL (65-95) H 12/23/20 13:06 Urine Color Straw (Yellow) 12/23/20 00:40 Urine Turbidity Clear (Clear) 12/23/20 00:40 Urine pH 5.0 (5.0-7.0) 12/23/20 00:40 Ur Specific Holiday 1.030 (1.003-1.030) 12/23/20 00:40 Urine Protein 30 mg/dl mg/dL (Negative) 12/23/20 00:40 Urine Glucose (UA) Negative mg/dL (Negative) 12/23/20 00:40 Urine Ketones Negative mg/dL (Negative) 12/23/20 00:40 Urine Blood Negative (Negative) 12/23/20 00:40 Urine Nitrite Negative (Negative) 12/23/20 00:40 Ur Reducing Substances Not Reportable 12/23/20 00:40 Urine Bilirubin Negative (Negative) 12/23/20 00:40 Urine Ictotest Not Reportable 12/23/20 00:40 Urine Urobilinogen < 2.0 mg/dL (<2.0) 12/23/20 00:40 Ur Leukocyte Esterase Negative (Negative) 12/23/20 00:40 Urine WBC (Auto) 8.0 /HPF (0.0-6.0) H 12/23/20 00:40 Urine RBC (Auto) 1.0 /HPF (0.0-6.0) 12/23/20 00:40 U Epithel Cells (Auto) < 1.0 /HPF (0-13.0) 12/23/20 00:40 Hyaline Casts 1 /LPF 12/23/20 00:40 Urine Mucus Few /HPF 12/23/20 00:40 Urine Eosinophils None seen (None Seen) 12/23/20 00:40 Urine Creatinine 134.1 mg/dL (0.1-20.0) H 12/23/20 00:40 Protein/Creatinin Ratio 0.37 12/23/20 00:40 Urine Sodium 26 mmol/L 12/23/20 00:40 Urine Total Protein 50 mg/dL (5-11.8) H 12/23/20 00:40 Coronavirus (PCR) Positive (Negative) A 12/21/20 Unknown Murray/IV: Voiding Method Urinal Active Medications - Current Medications Current Medications: Generic Name Dose Route Start Last Admin Trade Name Freq PRN Reason Stop Dose Admin Acetaminophen 650 mg 12/20/20 12:52 Acetaminophen 325 Mg Tab PO Q4H PRN Pain MILD(1-3)/Fever >100.5/KWON Ascorbic Acid 500 mg 12/20/20 22:00 12/24/20 21:37 Ascorbic Acid 500 Mg Tab PO 500 mg BID GUSTAVO Administration Cholecalciferol 1,000 unit 12/21/20 10:00 12/24/20 10:08 Cholecalciferol (Vit D3) 1000 Unit (25 Mcg) Tab PO 1,000 unit QDAY [facility] Administration Enoxaparin Sodium 150 mg 12/21/20 22:00 12/24/20 21:36 Enoxaparin 150 Mg/1 Ml Inj SUB-Q 150 mg Q12HR [facility] Administration Hydralazine HCl 10 mg 12/22/20 17:56 12/22/20 19:01 Hydralazine 20 Mg/1 Ml Inj IV 10 mg Q6H PRN Administration Hypertension Hydromorphone HCl 0.5 mg 12/20/20 12:52 Hydromorphone 1 Mg/1 Ml Inj IV Q23H PRN Pain , Severe (7-10) REMDESIVIR 100 mg/ Sodium 250 mls @ 500 mls/hr 12/22/20 21:00 12/24/20 21:37 Chloride IV 12/25/20 21:29 500 mls/hr Q24HR@2100 [facility] Administration Insulin Glargine 20 units 12/25/20 22:00 Insulin Glargine 100 Units/Ml SUB-Q QHS [facility] Insulin Human Lispro 0 unit 12/23/20 12:00 12/25/20 06:14 Insulin Lispro 100 Unit/Ml SUB-Q 3 unit Q6HR [facility] Administration Protocol Methylprednisolone Sodium Succinate 80 mg 12/21/20 12:00 12/25/20 06:13 Methylprednisolone Sod Succinate 125 Mg/2 Ml Inj IV 12/31/20 06:01 80 mg Q8HR [facility] Administration Metoprolol Tartrate 50 mg 12/21/20 16:00 12/24/20 21:37 Metoprolol Tartrate 50 Mg Tab PO 50 mg BID [facility] Administration Ondansetron HCl 4 mg 12/20/20 12:52 Ondansetron 4 Mg/2 Ml Inj IV Q8H PRN Nausea And Vomiting Oxycodone/Acetaminophen 1 tab 12/20/20 12:52 12/22/20 22:12 Oxycodone /Acetaminophen 5-325mg Tab PO 1 tab Q12H PRN Administration Pain, Moderate (4-6) Sodium Chloride 10 ml 12/20/20 22:00 12/24/20 21:39 Sodium Chloride 0.9% 10 Ml Flush Syringe IV 10 ml BID GUSTAVO Administration Sodium Chloride 10 ml 12/20/20 12:52 Sodium Chloride 0.9% 10 Ml Flush Syringe IV PRN PRN LINE FLUSH Sodium Chloride 50 ml 12/22/20 21:00 12/24/20 21:38 Sodium Chloride 0.9% 50 Ml Ivpb IV 12/25/20 21:01 50 ml Q24HR@2100 [facility] Administration Sodium Polystyrene Sulfonate 60 gm 12/25/20 10:00 Sodium Polystyrene 15 Gm/60 Ml Oral Liqd PO 12/25/20 14:00 ONCE@1000 NR Zinc Sulfate 220 mg 12/20/20 22:00 12/24/20 21:37 Zinc Sulfate 220 Mg Cap PO 220 mg BID GUSTAVO Administration
[2020-12-25] MEDS ORDERED: SODIUM POLYSTYRENE 15 GM/60 ML ORAL LIQD PO NR (10:00)
--- NOTE | 2020-12-25 10:14 | Progress Note ---
Assessment and Plan Cultures: SARS CoV2 PCR: positive A/P: 50/M with HTN, CHF, non-compliance, currently incarcerated admitted to the hospital with: #Sepsis, secondary to bilateral pneumonia due to COVID-19: severe disease. Admission labs: procalcitonin 1.45, D-dimer >10,000, CRP 5.2. CRP down to 1.1. #Acute hypoxic respiratory failure: on BiPAP-->HFNC 100%40L. #NAVJOT: Improving/Renally dose antibiotics. #Morbid obesity Recs: Continue Remdesivir D5 of 5 Continue empiric antibiotics x 5 days Continue on steroids x 10 days Does not meet hospital criteria for Actemra based on CRP Follow-up VQ scan and leg US when feasible due to elevated D-dimer and NAVJOT. On full anticoagulation Repeat markers todays Chuyita Sutton MD [facility] ([facility]) Office [phone] Subjective Date of service: 12/25/20 Principal diagnosis: COVID-19 PNA Interval history: Feels better. Now on HFNC 100% 40L, noted one episode of desaturation 88%. Objective - Exam Narrative Exam: physical exam deferred to minimize COVID-19 transmission during pandemic. - Constitutional Vitals: Vital Signs Temp Pulse Resp BP Pulse Ox 99.7 F H 101 H 25 H 168/72 92 12/25/20 07:04 12/25/20 09:01 12/25/20 09:01 12/25/20 09:01 12/25/20 09:07 Temperature -Last 24 Hours Temperature 99.7 F Temperature 98.8 F Temperature 99.3 F - Labs CBC & Chem 7: 12/22/20 05:56 12/25/20 04:44 Labs: Abnormal lab results 12/24/20 12/24/20 12/24/20 Range/Units 12:03 17:44 22:25 Potassium (3.6-5.0) mmol/L BUN (9-20) mg/dL Glucose (75-100) mg/dL POC Glucose 218 H 266 H 224 H (70-105) mg/dL 12/25/20 12/25/20 Range/Units 04:44 06:11 Potassium 5.5 H (3.6-5.0) mmol/L BUN 58 H (9-20) mg/dL Glucose 235 H (75-100) mg/dL POC Glucose 191 H (70-105) mg/dL
[2020-12-25] MEDS: CHOLECALCIFEROL (VIT D3) 1000 UNIT (25 mcg) TAB PO SCH (10:57)
[2020-12-25] MEDS: ZINC SULFATE 220 MG CAP PO SCH ×2 (10:57→21:47)
[2020-12-25] MEDS: METOPROLOL TARTRATE 50 MG TAB PO SCH ×2 (10:58→21:47)
[2020-12-25] MEDS: ASCORBIC ACID 500 MG TAB PO SCH ×2 (10:58→21:47)
[2020-12-25] MEDS: ENOXAPARIN 150 MG/1 ML INJ SUB-Q SCH ×2 (10:59→21:48)
--- NOTE | 2020-12-25 14:58 | Progress Note ---
Assessment and Plan 1. Acute kidney injury: NAVJOT in the setting of Covid-19 infection and sepsis. Suspect ATN. Baseline renal function is unknown. Low FeNa. Renal US negative. Monitor renal function. Creatinine level is improving. Avoid nephrotoxic agents. Meds dosage based on GFR. 2. FEN: Hyperkalemia, meds ordered, monitor. Monitor lytes and volume status. 3. Acute hypoxic resp failure, POA: 04/26 Covid-19 PNA. Test positive for Covid-19. Per pt he received J&J vaccine in Mar 2020. On BIPAP. Followed by Pulmonary. 4. Covid-19 PNA, POA: Test positive for Covid-19. Per pt he received J&J vaccine in Mar 2020. On Solumedrol and Remdesivir. Monitor. 5. Sepsis, POA: 04/26 Covid-19 pneumonia. Followed by ID. 6. HTN: Monitor BP. Adjust meds as needed. 7. DM / Elevated bl glu: A1C 7.2. Monitor. Subjective: Patient was seen and examined at the bedside. Examination: General appearance: well-developed, appears stated age, obese, on BIPAP HEENT: atraumatic Neck: trachea midline Respiratory: coarse breath sounds Heart: S1S2, regular, no murmur Abdomen: soft, obese, bowel sounds heard, NT Integumentary: no rash Neurologic: alert, moving extremities Ext: no edema Subjective Date of service: 12/25/20 Principal diagnosis: COVID-19 PNA Objective - Vital Signs Vital signs: Vital Signs - 12hr 12/25/20 12/25/20 12/25/20 03:00 04:00 04:37 Temperature Pulse Rate 85 85 88 Pulse Rate [ 90 From Monitor] Respiratory 32 H 17 29 H Rate Blood Pressure 148/85 163/97 163/97 O2 Sat by Pulse 89 89 91 Oximetry 12/25/20 12/25/20 12/25/20 05:00 06:01 07:01 Temperature Pulse Rate 84 91 H Pulse Rate [ From Monitor] Respiratory 28 H 24 Rate Blood Pressure 169/76 169/76 150/74 O2 Sat by Pulse 93 88 90 Oximetry 12/25/20 12/25/20 12/25/20 07:04 08:00 09:01 Temperature 99.7 F H Pulse Rate 80 101 H Pulse Rate [ 89 From Monitor] Respiratory 25 H 25 H Rate Blood Pressure 168/72 168/72 O2 Sat by Pulse 94 Oximetry 12/25/20 12/25/20 12/25/20 09:07 10:01 10:58 Temperature Pulse Rate 95 H 104 H Pulse Rate [ From Monitor] Respiratory 35 H Rate Blood Pressure 111/66 111/66 O2 Sat by Pulse 92 88 Oximetry 12/25/20 12/25/20 12/25/20 11:00 12:00 13:08 Temperature Pulse Rate 94 H 102 H Pulse Rate [ 87 From Monitor] Respiratory 23 25 H Rate Blood Pressure 170/85 188/107 188/107 O2 Sat by Pulse 92 74 L 64 L Oximetry 12/25/20 14:00 Temperature Pulse Rate 164 H Pulse Rate [ From Monitor] Respiratory 29 H Rate Blood Pressure 123/71 O2 Sat by Pulse 87 Oximetry - Lab 12/22/20 05:56 12/25/20 04:44 Most recent lab results ABG pH 7.446 (7.320-7.450) 12/23/20 13:06 ABG O2 Saturation 89.8 (0-100) 12/23/20 13:06 Calcium 9.0 mg/dL (8.4-10.2) 12/25/20 04:44 Urine Creatinine 134.1 mg/dL (0.1-20.0) H 12/23/20 00:40 Urine Sodium 26 mmol/L 12/23/20 00:40 Urine Total Protein 50 mg/dL (5-11.8) H 12/23/20 00:40 Medications & Allergies - Medications Allergies/Adverse Reactions: Allergies No Known Allergies Allergy (Verified 12/21/20 05:36) Home Medications: Home Medications Medication Instructions Recorded Confirmed Last Taken Type Losartan [Cozaar] 50 mg PO QDAY 12/20/20 12/20/20 12/20/20 07:00 History 50 Active Medications: Generic Name Dose Route Start Last Admin Trade Name Freq PRN Reason Stop Dose Admin Acetaminophen 650 mg 12/20/20 12:52 Acetaminophen 325 Mg Tab PO Q4H PRN Pain MILD(1-3)/Fever >100.5/KWON Ascorbic Acid 500 mg 12/20/20 22:00 12/25/20 10:58 Ascorbic Acid 500 Mg Tab PO 500 mg BID G[facility]AV[facility] Administration Cholecalciferol 1,000 unit 12/21/20 10:00 12/25/20 10:57 Cholecalciferol (Vit D3) 1000 Unit (25 Mcg) Tab PO 1,000 unit QDAY [facility] Administration Enoxaparin Sodium 150 mg 12/21/20 22:00 12/25/20 10:59 Enoxaparin 150 Mg/1 Ml Inj SUB-Q 150 mg Q12HR [facility] Administration Hydralazine HCl 10 mg 12/22/20 17:56 12/22/20 19:01 Hydralazine 20 Mg/1 Ml Inj IV 10 mg Q6H PRN Administration Hypertension Hydromorphone HCl 0.5 mg 12/20/20 12:52 Hydromorphone 1 Mg/1 Ml Inj IV Q23H PRN Pain , Severe (7-10) REMDESIVIR 100 mg/ Sodium 250 mls @ 500 mls/hr 12/22/20 21:00 12/24/20 21:37 Chloride IV 12/25/20 21:29 500 mls/hr Q24HR@2100 [facility] Administration Insulin Glargine 20 units 12/25/20 22:00 Insulin Glargine 100 Units/Ml SUB-Q QHS [facility] Insulin Human Lispro 0 unit 12/23/20 12:00 12/25/20 12:30 Insulin Lispro 100 Unit/Ml SUB-Q 4 unit Q6HR [facility] Administration Protocol Methylprednisolone Sodium Succinate 80 mg 12/21/20 12:00 12/25/20 14:49 Methylprednisolone Sod Succinate 125 Mg/2 Ml Inj IV 12/31/20 06:01 80 mg Q8HR [facility] Administration Metoprolol Tartrate 50 mg 12/21/20 16:00 12/25/20 10:58 Metoprolol Tartrate 50 Mg Tab PO 50 mg BID [facility] Administration Ondansetron HCl 4 mg 12/20/20 12:52 Ondansetron 4 Mg/2 Ml Inj IV Q8H PRN Nausea And Vomiting Oxycodone/Acetaminophen 1 tab 12/20/20 12:52 12/22/20 22:12 Oxycodone /Acetaminophen 5-325mg Tab PO 1 tab Q12H PRN Administration Pain, Moderate (4-6) Sodium Chloride 10 ml 12/20/20 22:00 12/25/20 10:57 Sodium Chloride 0.9% 10 Ml Flush Syringe IV 10 ml BID [facility] Administration Sodium Chloride 10 ml 12/20/20 12:52 Sodium Chloride 0.9% 10 Ml Flush Syringe IV PRN PRN LINE FLUSH Sodium Chloride 50 ml 12/22/20 21:00 12/24/20 21:38 Sodium Chloride 0.9% 50 Ml Ivpb IV 12/25/20 21:01 50 ml Q24HR@2100 [facility] Administration Zinc Sulfate 220 mg 12/20/20 22:00 12/25/20 10:57 Zinc Sulfate 220 Mg Cap PO 220 mg BID GUSTAVO Administration
[2020-12-25] MEDS ORDERED: METOPROLOL TARTRATE 5 MG/5 ML INJ IV ONE (17:00)
--- NOTE | 2020-12-25 17:00 | Cat Scan Report ---
NONENHANCED CT SCAN OF THE HEAD: INDICATION / CLINICAL INFORMATION: 50 years Male; Patient had a fall 12/25/20. TECHNIQUE: Routine CT head without contrast. All CT scans at this location are performed using CT dos e reduction for ALARA by means of automated exposure control. COMPARISON: None. FINDINGS: BRAIN / INTRACRANIAL CONTENTS: No intracranial sequela from the trauma; no scalp hematoma; no air-flu id level in the visualized portions of the paranasal sinuses No acute hemorrhage, mass effect, midline shift, hydrocephalus, or acute, large territorial infarct. No chronic infarct or focal atrophy. Normal brain volume and ventricular/sulcal size for age. No sig nificant white matter abnormality. CRANIOCERVICAL JUNCTION: No significant abnormality. ORBITS: No significant abnormality of visualized orbits. SINUSES / MASTOIDS: Large retention cyst in the left frontal sinus ADDITIONAL FINDINGS: None. IMPRESSION: No intracranial sequela from the trauma; no focal parenchymal lesion Signer Name: Shelley Gaming MD Signed: 12/25/2020 4:56 PM Workstation Name: [id number]
[2020-12-25] MEDS: dilTIAZem/D5W 100 MG/100 ML BAG IV SCH (18:34)
[2020-12-25] MEDS: REMDESIVIR 100 MG in SODIUM CHLORIDE 0.9% 250ML 250 ML IV SCH (21:48)
[2020-12-25] MEDS: INSULIN GLARGINE 100 UNITS/ML SUB-Q SCH (21:54)
[2020-12-25] MEDS: SODIUM CHLORIDE 0.9% 50 ML IVPB IV SCH (22:04)
--- NOTE | 2020-12-25 22:59 | Progress Note ---
Assessment and Plan Imp: 1. Viral pneumonia 2/2 Covid-19 2. Morbid obesity 3. Acute respiratory failure, hypoxia 4. NAVJOT Rec: 1. Cont. IV steroids x 10 days 2. Full dose anticoagulation 3. Completing 5 days of empiric ABX and Remdesivir 4. BIPAP QHS and PRN; wean O2 to keep sats 88% or > 5. Prognosis guarded to poor Subjective Date of service: 12/25/20 Principal diagnosis: COVID-19 PNA Interval history: Fell earlier, CT head neg. On BIPAP 95-100% FiO2. + SOB. Active Medications Acetaminophen (Acetaminophen 325 Mg Tab) 650 mg PO Q4H PRN PRN Reason: Pain MILD(1-3)/Fever >100.5/KWON Ascorbic Acid (Ascorbic Acid 500 Mg Tab) 500 mg PO BID [facility] Last Admin: 12/25/20 21:47 Dose: 500 mg Documented by: Cholecalciferol (Cholecalciferol (Vit D3) 1000 Unit (25 Mcg) Tab) 1,000 unit PO QDAY [facility] Last Admin: 12/25/20 10:57 Dose: 1,000 unit Documented by: Enoxaparin Sodium (Enoxaparin 150 Mg/1 Ml Inj) 150 mg SUB-Q Q12HR [facility] Last Admin: 12/25/20 21:48 Dose: 150 mg Documented by: Hydralazine HCl (Hydralazine 20 Mg/1 Ml Inj) 10 mg IV Q6H PRN PRN Reason: Hypertension Last Admin: 12/22/20 19:01 Dose: 10 mg Documented by: Hydromorphone HCl (Hydromorphone 1 Mg/1 Ml Inj) 0.5 mg IV Q23H PRN PRN Reason: Pain , Severe (7-10) Diltiazem HCl (Cardizem/D5w 100mg/100ml) 100 mg in 100 mls @ 5 mls/hr IV TITR GUSTAVO; Protocol Last Admin: 12/25/20 18:34 Dose: 5 mg/hr, 5 mls/hr Documented by: Insulin Glargine (Insulin Glargine 100 Units/Ml) 20 units SUB-Q QHS [facility] Last Admin: 12/25/20 21:54 Dose: 20 units Documented by: Insulin Human Lispro (Insulin Lispro 100 Unit/Ml) 0 unit SUB-Q Q6HR [facility]; Protocol Last Admin: 12/25/20 17:06 Dose: 8 unit Documented by: Methylprednisolone Sodium Succinate (Methylprednisolone Sod Succinate 125 Mg/2 Ml Inj) 80 mg IV Q8HR [facility] Stop: 12/31/20 06:01 Last Admin: 12/25/20 21:47 Dose: 80 mg Documented by: Metoprolol Tartrate (Metoprolol Tartrate 50 Mg Tab) 50 mg PO BID [facility] Last Admin: 12/25/20 21:47 Dose: 50 mg Documented by: Ondansetron HCl (Ondansetron 4 Mg/2 Ml Inj) 4 mg IV Q8H PRN PRN Reason: Nausea And Vomiting Oxycodone/Acetaminophen (Oxycodone /Acetaminophen 5-325mg Tab) 1 tab PO Q12H PRN PRN Reason: Pain, Moderate (4-6) Last Admin: 12/22/20 22:12 Dose: 1 tab Documented by: Sodium Chloride (Sodium Chloride 0.9% 10 Ml Flush Syringe) 10 ml IV BID [facility] Last Admin: 12/25/20 22:02 Dose: 10 ml Documented by: Sodium Chloride (Sodium Chloride 0.9% 10 Ml Flush Syringe) 10 ml IV PRN PRN PRN Reason: LINE FLUSH Zinc Sulfate (Zinc Sulfate 220 Mg Cap) 220 mg PO BID [facility] Last Admin: 12/25/20 21:47 Dose: 220 mg Documented by: Objective - Exam Narrative Exam: physical exam deferred to minimize COVID-19 transmission during pandemic. Vital Signs - 12hr 12/25/20 12/25/20 12/25/20 10:58 11:00 12:00 Temperature Pulse Rate 104 H 94 H 102 H Pulse Rate [ 87 From Monitor] Respiratory 23 25 H Rate Blood Pressure 111/66 170/85 188/107 O2 Sat by Pulse 92 74 L Oximetry 12/25/20 12/25/20 12/25/20 13:08 14:00 15:01 Temperature Pulse Rate 164 H 162 H Pulse Rate [ From Monitor] Respiratory 29 H 35 H Rate Blood Pressure 188/107 123/71 123/71 O2 Sat by Pulse 64 L 87 92 Oximetry 12/25/20 12/25/20 12/25/20 16:00 16:33 17:00 Temperature Pulse Rate 110 H Pulse Rate [ 110 H From Monitor] Respiratory 28 H Rate Blood Pressure 123/71 114/76 O2 Sat by Pulse 94 85 92 Oximetry 12/25/20 12/25/20 12/25/20 17:06 17:36 17:47 Temperature 98.0 F Pulse Rate 144 H 122 H Pulse Rate [ From Monitor] Respiratory 30 H Rate Blood Pressure 114/76 O2 Sat by Pulse 95 Oximetry 12/25/20 12/25/20 12/25/20 18:00 18:34 19:01 Temperature Pulse Rate 132 H 122 H 116 H Pulse Rate [ From Monitor] Respiratory 31 H 31 H Rate Blood Pressure 111/75 120/74 115/77 O2 Sat by Pulse 96 96 Oximetry 12/25/20 12/25/20 12/25/20 20:00 20:11 20:49 Temperature 98.8 F Pulse Rate 119 H 135 H Pulse Rate [ 111 H From Monitor] Respiratory 30 H 27 H Rate Blood Pressure 122/80 122/80 O2 Sat by Pulse 100 97 Oximetry 12/25/20 12/25/20 21:01 21:47 Temperature Pulse Rate 115 H 100 H Pulse Rate [ From Monitor] Respiratory 28 H Rate Blood Pressure 128/69 O2 Sat by Pulse 97 Oximetry CBC and BMP: 12/22/20 05:56 12/25/20 04:44 ABG, PT/INR, D-dimer: ABG ABG pH 7.446 (7.320-7.450) 12/23/20 13:06 POC ABG pCO2 29.6 mmHg (32.0-48.0) L 12/23/20 13:06 POC ABG pO2 57.8 mmHg (83-108) L 12/23/20 13:06 POC ABG HCO3 19.9 12/23/20 13:06 ABG O2 Saturation 89.8 (0-100) 12/23/20 13:06 PT/INR, D-dimer D-Dimer 6017.45 ng/mlDDU (0-234) H 12/25/20 11:14 Abnormal lab findings: Abnormal Labs 12/20/20 12/20/20 12/20/20 11:31 11:31 11:31 WBC 16.5 H RBC 5.27 H Hgb Hct Seg Neuts % (Manual) 90.0 H Lymphocytes % (Manual) 5.0 L Nucleated RBC % Seg Neutrophils # Man 14.9 H Lymphocytes # (Manual) 0.8 L D-Dimer > 84919 H POC ABG pCO2 POC ABG pO2 ABG Oxyhemoglobin ABG Potassium ABG Glucose Sodium 130 L Potassium Chloride 94.5 L Carbon Dioxide BUN 64 H Creatinine 2.6 H Glucose 154 H POC Glucose Hemoglobin A1c Calcium Ferritin AST ALT Lactate Dehydrogenase Troponin T C-Reactive Protein NT-Pro-B Natriuret Pep Albumin 3.5 L Triglycerides HDL Cholesterol PTH Intact Arterial Blood Glucose Urine WBC (Auto) Urine Creatinine Urine Total Protein Coronavirus (PCR) 12/20/20 12/21/20 12/21/20 11:31 06:10 06:10 WBC 20.1 H RBC 5.55 H Hgb 15.4 H Hct 47.3 H Seg Neuts % (Manual) 89.0 H Lymphocytes % (Manual) Nucleated RBC % 1.0 H Seg Neutrophils # Man 17.9 H Lymphocytes # (Manual) 0.0 L D-Dimer POC ABG pCO2 POC ABG pO2 ABG Oxyhemoglobin ABG Potassium ABG Glucose Sodium 136 L Potassium Chloride Carbon Dioxide BUN 57 H Creatinine 1.8 H Glucose 193 H POC Glucose Hemoglobin A1c Calcium Ferritin AST ALT Lactate Dehydrogenase 10 L Troponin T 0.106 H* C-Reactive Protein 5.20 H NT-Pro-B Natriuret Pep Albumin Triglycerides 226 H HDL Cholesterol 31 L PTH Intact Arterial Blood Glucose Urine WBC (Auto) Urine Creatinine Urine Total Protein Coronavirus (PCR) 12/21/20 12/21/20 12/21/20 13:29 14:32 Unknown WBC RBC Hgb Hct Seg Neuts % (Manual) Lymphocytes % (Manual) Nucleated RBC % Seg Neutrophils # Man Lymphocytes # (Manual) D-Dimer POC ABG pCO2 POC ABG pO2 ABG Oxyhemoglobin ABG Potassium ABG Glucose Sodium 134 L Potassium Chloride Carbon Dioxide BUN 57 H Creatinine 1.8 H Glucose 340 H POC Glucose Hemoglobin A1c Calcium 8.3 L Ferritin AST ALT Lactate Dehydrogenase Troponin T C-Reactive Protein NT-Pro-B Natriuret Pep 6191 H Albumin 3.3 L Triglycerides HDL Cholesterol PTH Intact Arterial Blood Glucose Urine WBC (Auto) Urine Creatinine Urine Total Protein Coronavirus (PCR) Positive A 12/22/20 12/22/20 12/22/20 05:56 05:56 17:21 WBC 26.6 H RBC 5.22 H Hgb Hct Seg Neuts % (Manual) Lymphocytes % (Manual) Nucleated RBC % Seg Neutrophils # Man Lymphocytes # (Manual) D-Dimer POC ABG pCO2 POC ABG pO2 ABG Oxyhemoglobin ABG Potassium ABG Glucose Sodium Potassium Chloride Carbon Dioxide BUN 64 H Creatinine 2.0 H Glucose 227 H POC Glucose 188 H Hemoglobin A1c Calcium Ferritin AST ALT Lactate Dehydrogenase Troponin T C-Reactive Protein NT-Pro-B Natriuret Pep Albumin 3.4 L Triglycerides HDL Cholesterol PTH Intact Arterial Blood Glucose Urine WBC (Auto) Urine Creatinine Urine Total Protein Coronavirus (PCR) 12/23/20 12/23/20 12/23/20 00:40 00:40 05:15 WBC RBC Hgb Hct Seg Neuts % (Manual) Lymphocytes % (Manual) Nucleated RBC % Seg Neutrophils # Man Lymphocytes # (Manual) D-Dimer POC ABG pCO2 POC ABG pO2 ABG Oxyhemoglobin ABG Potassium ABG Glucose Sodium Potassium 5.6 H Chloride Carbon Dioxide BUN 71 H Creatinine 1.8 H Glucose 225 H POC Glucose Hemoglobin A1c Calcium Ferritin AST 46 H ALT 83 H Lactate Dehydrogenase Troponin T C-Reactive Protein NT-Pro-B Natriuret Pep Albumin 3.6 L Triglycerides HDL Cholesterol PTH Intact Arterial Blood Glucose Urine WBC (Auto) 8.0 H Urine Creatinine 134.1 H Urine Total Protein 50 H Coronavirus (PCR) 12/23/20 12/23/20 12/23/20 05:15 05:15 11:47 WBC RBC Hgb Hct Seg Neuts % (Manual) Lymphocytes % (Manual) Nucleated RBC % Seg Neutrophils # Man Lymphocytes # (Manual) D-Dimer POC ABG pCO2 POC ABG pO2 ABG Oxyhemoglobin ABG Potassium ABG Glucose Sodium Potassium Chloride Carbon Dioxide BUN Creatinine Glucose POC Glucose 257 H Hemoglobin A1c 7.2 H Calcium Ferritin AST ALT Lactate Dehydrogenase Troponin T C-Reactive Protein NT-Pro-B Natriuret Pep Albumin Triglycerides HDL Cholesterol PTH Intact 109.4 H Arterial Blood Glucose Urine WBC (Auto) Urine Creatinine Urine Total Protein Coronavirus (PCR) 12/23/20 12/23/20 12/24/20 13:06 16:41 00:02 WBC RBC Hgb Hct Seg Neuts % (Manual) Lymphocytes % (Manual) Nucleated RBC % Seg Neutrophils # Man Lymphocytes # (Manual) D-Dimer POC ABG pCO2 29.6 L POC ABG pO2 57.8 L ABG Oxyhemoglobin 88.9 L ABG Potassium 4.7 H ABG Glucose 286 H Sodium Potassium Chloride Carbon Dioxide BUN Creatinine Glucose POC Glucose 199 H 213 H Hemoglobin A1c Calcium Ferritin AST ALT Lactate Dehydrogenase Troponin T C-Reactive Protein NT-Pro-B Natriuret Pep Albumin Triglycerides HDL Cholesterol PTH Intact Arterial Blood Glucose 286 H Urine WBC (Auto) Urine Creatinine Urine Total Protein Coronavirus (PCR) 12/24/20 12/24/20 12/24/20 04:56 05:17 12:03 WBC RBC Hgb Hct Seg Neuts % (Manual) Lymphocytes % (Manual) Nucleated RBC % Seg Neutrophils # Man Lymphocytes # (Manual) D-Dimer POC ABG pCO2 POC ABG pO2 ABG Oxyhemoglobin ABG Potassium ABG Glucose Sodium Potassium 5.4 H Chloride Carbon Dioxide 18 L D BUN 74 H Creatinine 1.6 H Glucose 228 H POC Glucose 204 H 218 H Hemoglobin A1c Calcium Ferritin AST 44 H ALT 105 H Lactate Dehydrogenase Troponin T C-Reactive Protein NT-Pro-B Natriuret Pep Albumin 3.5 L Triglycerides HDL Cholesterol PTH Intact Arterial Blood Glucose Urine WBC (Auto) Urine Creatinine Urine Total Protein Coronavirus (PCR) 12/24/20 12/24/20 12/25/20 17:44 22:25 04:44 WBC RBC Hgb Hct Seg Neuts % (Manual) Lymphocytes % (Manual) Nucleated RBC % Seg Neutrophils # Man Lymphocytes # (Manual) D-Dimer POC ABG pCO2 POC ABG pO2 ABG Oxyhemoglobin ABG Potassium ABG Glucose Sodium Potassium 5.5 H Chloride Carbon Dioxide BUN 58 H Creatinine Glucose 235 H POC Glucose 266 H 224 H Hemoglobin A1c Calcium Ferritin AST ALT Lactate Dehydrogenase Troponin T C-Reactive Protein NT-Pro-B Natriuret Pep Albumin Triglycerides HDL Cholesterol PTH Intact Arterial Blood Glucose Urine WBC (Auto) Urine Creatinine Urine Total Protein Coronavirus (PCR) 12/25/20 12/25/20 12/25/20 06:11 11:14 11:14 WBC RBC Hgb Hct Seg Neuts % (Manual) Lymphocytes % (Manual) Nucleated RBC % Seg Neutrophils # Man Lymphocytes # (Manual) D-Dimer 6017.45 H POC ABG pCO2 POC ABG pO2 ABG Oxyhemoglobin ABG Potassium ABG Glucose Sodium Potassium Chloride Carbon Dioxide BUN Creatinine Glucose POC Glucose 191 H Hemoglobin A1c Calcium Ferritin 1385.0 H AST ALT Lactate Dehydrogenase Troponin T C-Reactive Protein NT-Pro-B Natriuret Pep Albumin Triglycerides HDL Cholesterol PTH Intact Arterial Blood Glucose Urine WBC (Auto) Urine Creatinine Urine Total Protein Coronavirus (PCR) 12/25/20 12/25/20 11:38 17:00 WBC RBC Hgb Hct Seg Neuts % (Manual) Lymphocytes % (Manual) Nucleated RBC % Seg Neutrophils # Man Lymphocytes # (Manual) D-Dimer POC ABG pCO2 POC ABG pO2 ABG Oxyhemoglobin ABG Potassium ABG Glucose Sodium Potassium Chloride Carbon Dioxide BUN Creatinine Glucose POC Glucose 213 H 327 H Hemoglobin A1c Calcium Ferritin AST ALT Lactate Dehydrogenase Troponin T C-Reactive Protein NT-Pro-B Natriuret Pep Albumin Triglycerides HDL Cholesterol PTH Intact Arterial Blood Glucose Urine WBC (Auto) Urine Creatinine Urine Total Protein Coronavirus (PCR) Allied health notes reviewed: nursing
[2020-12-26 05:04] LABS: BUN/Creatinine Ratio 41; Blood Urea Nitrogen 49 mg/dL (9-20); Calcium 8.5 mg/dL (8.4-10.2); Hemolysis Index 9
[2020-12-26] MEDS: INSULIN LISPRO 100 UNIT/ML SUB-Q SCH ×3 (05:34→17:21)
[2020-12-26] MEDS: methylPREDNISolone Sod Succinate 125 MG/2 ML INJ IV SCH ×3 (05:38→22:55)
[2020-12-26] MEDS: METOPROLOL TARTRATE 50 MG TAB PO SCH ×2 (10:49→22:54)
[2020-12-26] MEDS: CHOLECALCIFEROL (VIT D3) 1000 UNIT (25 mcg) TAB PO SCH (10:49)
[2020-12-26] MEDS: ENOXAPARIN 150 MG/1 ML INJ SUB-Q SCH ×2 (10:50→22:57)
[2020-12-26] MEDS: ASCORBIC ACID 500 MG TAB PO SCH ×2 (10:50→22:55)
[2020-12-26] MEDS: ZINC SULFATE 220 MG CAP PO SCH ×2 (10:50→22:55)
[2020-12-26] MEDS: dilTIAZem/D5W 100 MG/100 ML BAG IV SCH ×2 (10:57→23:01)
--- NOTE | 2020-12-26 11:10 | Progress Note ---
Assessment and Plan 50 y/o obese male, COVID positive admitted with acute hypoxic respiratory failure, renal failure and elevated D-Dimer 12/26/20: Lasix has not been given lately. Will hold off today as well. Follow up renal recs. Prone patient if able. Continue steroids. Guarded prognosis. 12/23/20: Lasix 40 again today. Suggest daily therapy at least for several days to help with volume overload. This could help with oxygenation. Steroids and Remdesivir. Prone if able. BP control. GUarded prognosis. 1. Ordered stat BNP 2. Agree with Echo, follow up read as it has been done per the chart 3. Agree with steroids right now 4. Was given lasix yesterday and renal function improved. Agree with continued therapy, and follow up renal recs 5. Remdesivir ordered by ID 6. Prone as tolerated during the day and sleep prone at night 7. Guarded prognosis. Subjective Date of service: 12/26/20 Principal diagnosis: COVID-19 PNA Interval history: Currently on HFNC and NRB combo with sat of 95. Fio2 on HFNC is 90. per nursing patient fell yesterday. Currently on Cardizem for afib Objective Vital Signs - 12hr 12/25/20 12/25/20 12/25/20 23:01 23:07 23:17 Temperature Pulse Rate 94 H 86 94 H Pulse Rate [ From Monitor] Respiratory 29 H 29 H 30 H Rate Blood Pressure 136/83 136/83 136/83 O2 Sat by Pulse 80 L 100 100 Oximetry 12/26/20 12/26/20 12/26/20 00:00 00:01 01:01 Temperature Pulse Rate 98 H 93 H 101 H Pulse Rate [ 98 H From Monitor] Respiratory 21 32 H 25 H Rate Blood Pressure 114/84 144/84 O2 Sat by Pulse 94 100 99 Oximetry 12/26/20 12/26/20 12/26/20 02:00 02:45 03:01 Temperature Pulse Rate 95 H 96 H 87 Pulse Rate [ From Monitor] Respiratory 28 H 25 H 28 H Rate Blood Pressure 152/96 157/96 181/109 O2 Sat by Pulse 87 100 81 L Oximetry 12/26/20 12/26/20 12/26/20 03:15 03:30 03:43 Temperature Pulse Rate 90 99 H 107 H Pulse Rate [ From Monitor] Respiratory 26 H 28 H 33 H Rate Blood Pressure 123/84 111/87 111/87 O2 Sat by Pulse 92 96 Oximetry 12/26/20 12/26/20 12/26/20 03:45 04:00 04:01 Temperature 97.6 F Pulse Rate 106 H 117 H 104 H Pulse Rate [ 117 H From Monitor] Respiratory 27 H 29 H 27 H Rate Blood Pressure 111/87 123/84 O2 Sat by Pulse 79 L 94 96 Oximetry 12/26/20 12/26/20 12/26/20 04:15 04:30 04:45 Temperature Pulse Rate 91 H 96 H 105 H Pulse Rate [ From Monitor] Respiratory 28 H 28 H 36 H Rate Blood Pressure 123/84 120/90 120/90 O2 Sat by Pulse 96 96 75 L Oximetry 12/26/20 12/26/20 12/26/20 05:01 05:15 05:31 Temperature Pulse Rate 91 H 89 103 H Pulse Rate [ From Monitor] Respiratory 23 30 H 30 H Rate Blood Pressure 124/88 124/88 107/83 O2 Sat by Pulse 76 L 73 L 84 Oximetry 12/26/20 12/26/20 12/26/20 05:45 06:01 07:05 Temperature Pulse Rate 101 H 92 H 102 H Pulse Rate [ From Monitor] Respiratory 28 H 27 H 32 H Rate Blood Pressure 107/83 107/83 147/98 O2 Sat by Pulse 100 83 L 98 Oximetry 12/26/20 12/26/20 12/26/20 07:30 08:00 10:49 Temperature 98.2 F Pulse Rate 101 H Pulse Rate [ From Monitor] Respiratory Rate Blood Pressure 147/82 O2 Sat by Pulse 99 98 Oximetry CBC and BMP: 12/22/20 05:56 12/26/20 04:23 ABG, PT/INR, D-dimer: ABG ABG pH 7.446 (7.320-7.450) 12/23/20 13:06 POC ABG pCO2 29.6 mmHg (32.0-48.0) L 12/23/20 13:06 POC ABG pO2 57.8 mmHg (83-108) L 12/23/20 13:06 POC ABG HCO3 19.9 12/23/20 13:06 ABG O2 Saturation 89.8 (0-100) 12/23/20 13:06 PT/INR, D-dimer D-Dimer 6017.45 ng/mlDDU (0-234) H 12/25/20 11:14 Abnormal lab findings: Abnormal Labs 12/20/20 12/20/20 12/20/20 11:31 11:31 11:31 WBC 16.5 H RBC 5.27 H Hgb Hct Seg Neuts % (Manual) 90.0 H Lymphocytes % (Manual) 5.0 L Nucleated RBC % Seg Neutrophils # Man 14.9 H Lymphocytes # (Manual) 0.8 L D-Dimer > 07238 H POC ABG pCO2 POC ABG pO2 ABG Oxyhemoglobin ABG Potassium ABG Glucose Sodium 130 L Potassium Chloride 94.5 L Carbon Dioxide BUN 64 H Creatinine 2.6 H Glucose 154 H POC Glucose Hemoglobin A1c Calcium Ferritin AST ALT Lactate Dehydrogenase Troponin T C-Reactive Protein NT-Pro-B Natriuret Pep Albumin 3.5 L Triglycerides HDL Cholesterol PTH Intact Arterial Blood Glucose Urine WBC (Auto) Urine Creatinine Urine Total Protein Coronavirus (PCR) 12/20/20 12/21/20 12/21/20 11:31 06:10 06:10 WBC 20.1 H RBC 5.55 H Hgb 15.4 H Hct 47.3 H Seg Neuts % (Manual) 89.0 H Lymphocytes % (Manual) Nucleated RBC % 1.0 H Seg Neutrophils # Man 17.9 H Lymphocytes # (Manual) 0.0 L D-Dimer POC ABG pCO2 POC ABG pO2 ABG Oxyhemoglobin ABG Potassium ABG Glucose Sodium 136 L Potassium Chloride Carbon Dioxide BUN 57 H Creatinine 1.8 H Glucose 193 H POC Glucose Hemoglobin A1c Calcium Ferritin AST ALT Lactate Dehydrogenase 10 L Troponin T 0.106 H* C-Reactive Protein 5.20 H NT-Pro-B Natriuret Pep Albumin Triglycerides 226 H HDL Cholesterol 31 L PTH Intact Arterial Blood Glucose Urine WBC (Auto) Urine Creatinine Urine Total Protein Coronavirus (PCR) 12/21/20 12/21/20 12/21/20 13:29 14:32 Unknown WBC RBC Hgb Hct Seg Neuts % (Manual) Lymphocytes % (Manual) Nucleated RBC % Seg Neutrophils # Man Lymphocytes # (Manual) D-Dimer POC ABG pCO2 POC ABG pO2 ABG Oxyhemoglobin ABG Potassium ABG Glucose Sodium 134 L Potassium Chloride Carbon Dioxide BUN 57 H Creatinine 1.8 H Glucose 340 H POC Glucose Hemoglobin A1c Calcium 8.3 L Ferritin AST ALT Lactate Dehydrogenase Troponin T C-Reactive Protein NT-Pro-B Natriuret Pep 6191 H Albumin 3.3 L Triglycerides HDL Cholesterol PTH Intact Arterial Blood Glucose Urine WBC (Auto) Urine Creatinine Urine Total Protein Coronavirus (PCR) Positive A 12/22/20 12/22/20 12/22/20 05:56 05:56 17:21 WBC 26.6 H RBC 5.22 H Hgb Hct Seg Neuts % (Manual) Lymphocytes % (Manual) Nucleated RBC % Seg Neutrophils # Man Lymphocytes # (Manual) D-Dimer POC ABG pCO2 POC ABG pO2 ABG Oxyhemoglobin ABG Potassium ABG Glucose Sodium Potassium Chloride Carbon Dioxide BUN 64 H Creatinine 2.0 H Glucose 227 H POC Glucose 188 H Hemoglobin A1c Calcium Ferritin AST ALT Lactate Dehydrogenase Troponin T C-Reactive Protein NT-Pro-B Natriuret Pep Albumin 3.4 L Triglycerides HDL Cholesterol PTH Intact Arterial Blood Glucose Urine WBC (Auto) Urine Creatinine Urine Total Protein Coronavirus (PCR) 12/23/20 12/23/20 12/23/20 00:40 00:40 05:15 WBC RBC Hgb Hct Seg Neuts % (Manual) Lymphocytes % (Manual) Nucleated RBC % Seg Neutrophils # Man Lymphocytes # (Manual) D-Dimer POC ABG pCO2 POC ABG pO2 ABG Oxyhemoglobin ABG Potassium ABG Glucose Sodium Potassium 5.6 H Chloride Carbon Dioxide BUN 71 H Creatinine 1.8 H Glucose 225 H POC Glucose Hemoglobin A1c Calcium Ferritin AST 46 H ALT 83 H Lactate Dehydrogenase Troponin T C-Reactive Protein NT-Pro-B Natriuret Pep Albumin 3.6 L Triglycerides HDL Cholesterol PTH Intact Arterial Blood Glucose Urine WBC (Auto) 8.0 H Urine Creatinine 134.1 H Urine Total Protein 50 H Coronavirus (PCR) 12/23/20 12/23/20 12/23/20 05:15 05:15 11:47 WBC RBC Hgb Hct Seg Neuts % (Manual) Lymphocytes % (Manual) Nucleated RBC % Seg Neutrophils # Man Lymphocytes # (Manual) D-Dimer POC ABG pCO2 POC ABG pO2 ABG Oxyhemoglobin ABG Potassium ABG Glucose Sodium Potassium Chloride Carbon Dioxide BUN Creatinine Glucose POC Glucose 257 H Hemoglobin A1c 7.2 H Calcium Ferritin AST ALT Lactate Dehydrogenase Troponin T C-Reactive Protein NT-Pro-B Natriuret Pep Albumin Triglycerides HDL Cholesterol PTH Intact 109.4 H Arterial Blood Glucose Urine WBC (Auto) Urine Creatinine Urine Total Protein Coronavirus (PCR) 12/23/20 12/23/20 12/24/20 13:06 16:41 00:02 WBC RBC Hgb Hct Seg Neuts % (Manual) Lymphocytes % (Manual) Nucleated RBC % Seg Neutrophils # Man Lymphocytes # (Manual) D-Dimer POC ABG pCO2 29.6 L POC ABG pO2 57.8 L ABG Oxyhemoglobin 88.9 L ABG Potassium 4.7 H ABG Glucose 286 H Sodium Potassium Chloride Carbon Dioxide BUN Creatinine Glucose POC Glucose 199 H 213 H Hemoglobin A1c Calcium Ferritin AST ALT Lactate Dehydrogenase Troponin T C-Reactive Protein NT-Pro-B Natriuret Pep Albumin Triglycerides HDL Cholesterol PTH Intact Arterial Blood Glucose 286 H Urine WBC (Auto) Urine Creatinine Urine Total Protein Coronavirus (PCR) 12/24/20 12/24/20 12/24/20 04:56 05:17 12:03 WBC RBC Hgb Hct Seg Neuts % (Manual) Lymphocytes % (Manual) Nucleated RBC % Seg Neutrophils # Man Lymphocytes # (Manual) D-Dimer POC ABG pCO2 POC ABG pO2 ABG Oxyhemoglobin ABG Potassium ABG Glucose Sodium Potassium 5.4 H Chloride Carbon Dioxide 18 L D BUN 74 H Creatinine 1.6 H Glucose 228 H POC Glucose 204 H 218 H Hemoglobin A1c Calcium Ferritin AST 44 H ALT 105 H Lactate Dehydrogenase Troponin T C-Reactive Protein NT-Pro-B Natriuret Pep Albumin 3.5 L Triglycerides HDL Cholesterol PTH Intact Arterial Blood Glucose Urine WBC (Auto) Urine Creatinine Urine Total Protein Coronavirus (PCR) 12/24/20 12/24/20 12/25/20 17:44 22:25 04:44 WBC RBC Hgb Hct Seg Neuts % (Manual) Lymphocytes % (Manual) Nucleated RBC % Seg Neutrophils # Man Lymphocytes # (Manual) D-Dimer POC ABG pCO2 POC ABG pO2 ABG Oxyhemoglobin ABG Potassium ABG Glucose Sodium Potassium 5.5 H Chloride Carbon Dioxide BUN 58 H Creatinine Glucose 235 H POC Glucose 266 H 224 H Hemoglobin A1c Calcium Ferritin AST ALT Lactate Dehydrogenase Troponin T C-Reactive Protein NT-Pro-B Natriuret Pep Albumin Triglycerides HDL Cholesterol PTH Intact Arterial Blood Glucose Urine WBC (Auto) Urine Creatinine Urine Total Protein Coronavirus (PCR) 12/25/20 12/25/20 12/25/20 06:11 11:14 11:14 WBC RBC Hgb Hct Seg Neuts % (Manual) Lymphocytes % (Manual) Nucleated RBC % Seg Neutrophils # Man Lymphocytes # (Manual) D-Dimer 6017.45 H POC ABG pCO2 POC ABG pO2 ABG Oxyhemoglobin ABG Potassium ABG Glucose Sodium Potassium Chloride Carbon Dioxide BUN Creatinine Glucose POC Glucose 191 H Hemoglobin A1c Calcium Ferritin 1385.0 H AST ALT Lactate Dehydrogenase Troponin T C-Reactive Protein NT-Pro-B Natriuret Pep Albumin Triglycerides HDL Cholesterol PTH Intact Arterial Blood Glucose Urine WBC (Auto) Urine Creatinine Urine Total Protein Coronavirus (PCR) 12/25/20 12/25/20 12/25/20 11:38 17:00 23:31 WBC RBC Hgb Hct Seg Neuts % (Manual) Lymphocytes % (Manual) Nucleated RBC % Seg Neutrophils # Man Lymphocytes # (Manual) D-Dimer POC ABG pCO2 POC ABG pO2 ABG Oxyhemoglobin ABG Potassium ABG Glucose Sodium Potassium Chloride Carbon Dioxide BUN Creatinine Glucose POC Glucose 213 H 327 H 307 H Hemoglobin A1c Calcium Ferritin AST ALT Lactate Dehydrogenase Troponin T C-Reactive Protein NT-Pro-B Natriuret Pep Albumin Triglycerides HDL Cholesterol PTH Intact Arterial Blood Glucose Urine WBC (Auto) Urine Creatinine Urine Total Protein Coronavirus (PCR) 12/26/20 12/26/20 04:23 05:32 WBC RBC Hgb Hct Seg Neuts % (Manual) Lymphocytes % (Manual) Nucleated RBC % Seg Neutrophils # Man Lymphocytes # (Manual) D-Dimer POC ABG pCO2 POC ABG pO2 ABG Oxyhemoglobin ABG Potassium ABG Glucose Sodium 146 H Potassium Chloride Carbon Dioxide BUN 49 H Creatinine Glucose 257 H POC Glucose 265 H Hemoglobin A1c Calcium Ferritin AST ALT Lactate Dehydrogenase Troponin T C-Reactive Protein NT-Pro-B Natriuret Pep Albumin Triglycerides HDL Cholesterol PTH Intact Arterial Blood Glucose Urine WBC (Auto) Urine Creatinine Urine Total Protein Coronavirus (PCR) Allied health notes reviewed: nursing
--- NOTE | 2020-12-26 12:19 | Vascular Lab Report ---
DUPLEX DOPPLER LOWER EXTREMITY VEINS, BILATERAL INDICATION / CLINICAL INFORMATION: r/o DVT. Leg swelling TECHNIQUE: Duplex doppler imaging was performed through the veins of both lower extremities using venous nicole sheree and other maneuvers. COMPARISON: None available. FINDINGS: RIGHT COMMON FEMORAL VEIN: Negative. RIGHT FEMORAL VEIN: Negative. RIGHT POPLITEAL VEIN: Acute thrombus. RIGHT CALF VEINS: Acute thrombus. LEFT COMMON FEMORAL VEIN: Negative. LEFT FEMORAL VEIN: Negative. LEFT POPLITEAL VEIN: Acute thrombus. LEFT CALF VEINS: Acute thrombus. ADDITIONAL FINDINGS: None. IMPRESSION: 1. Acute bilateral popliteal and peroneal calf vein DVTs Signer Name: Domenic Davidson MD Signed: 12/26/2020 12:15 PM Workstation Name: [id number]
--- NOTE | 2020-12-26 13:23 | Progress Note ---
Assessment and Plan Cultures: SARS CoV2 PCR: positive A/P: 50/M with HTN, CHF, non-compliance, currently incarcerated admitted to the hospital with: #Sepsis, secondary to bilateral pneumonia due to COVID-19: severe disease. Admission labs: procalcitonin 1.45, D-dimer >10,000, CRP 5.2. CRP down to 1.1. #Acute hypoxic respiratory failure: on BiPAP-->HFNC 100%40L. #NAVJOT: Improving/Renally dose antibiotics. #Morbid obesity #Bilateral DVTs: Anticoagulation per primary Recs: Completed Remdesivir. Continue empiric antibiotics x 5 days Continue on steroids x 10 days Does not meet hospital criteria for Actemra based on CRP GMaged Bergeron MD [facility] ([facility] O: [phone] F: [phone] Subjective Date of service: 12/26/20 Principal diagnosis: COVID-19 PNA Interval history: Afebrile, remains in IMCU. Requiring-nasal cannula 40 L a minute. Imaging personally reviewed: Dopplers: Bilateral popliteal and peroneal DVTs Objective - Exam Narrative Exam: Physical exam deferred to reduce risk of transmission of COVID-19. Please refer to primary team's note. - Constitutional Vitals: Vital Signs Temp Pulse Resp BP Pulse Ox 98.2 F 92 H 25 H 138/81 99 12/26/20 08:00 12/26/20 11:45 12/26/20 11:45 12/26/20 11:45 12/26/20 11:45 Temperature -Last 24 Hours Temperature 98.2 F Temperature 97.6 F Temperature 98.8 F Temperature 98.0 F - Labs CBC & Chem 7: 12/22/20 05:56 12/26/20 04:23 Labs: Abnormal lab results 12/25/20 12/25/20 12/26/20 Range/Units 17:00 23:31 04:23 Sodium 146 H (137-145) mmol/L BUN 49 H (9-20) mg/dL Glucose 257 H (75-100) mg/dL POC Glucose 327 H 307 H (70-105) mg/dL 12/26/20 12/26/20 Range/Units 05:32 11:50 Sodium (137-145) mmol/L BUN (9-20) mg/dL Glucose (75-100) mg/dL POC Glucose 265 H 231 H (70-105) mg/dL
--- NOTE | 2020-12-26 14:13 | Electrocardiograph Report ---
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
--- NOTE | 2020-12-26 15:19 | Progress Note ---
Assessment and Plan 1. Acute kidney injury: NAVJOT in the setting of Covid-19 infection and sepsis. Suspect ATN. Low FeNa. Renal US negative. Monitor renal function. Creatinine level is improving. Avoid nephrotoxic agents. Meds dosage based on GFR. 2. FEN: Hyperkalemia, improved, monitor. Monitor lytes and volume status. 3. Acute hypoxic resp failure, POA: 2/ Covid-19 PNA. Test positive for Covid-19. Per pt he received J&J vaccine in Mar 2020. On HFNC O2 and NRB. Followed by Pulmonary. 4. Covid-19 PNA, POA: Test positive for Covid-19. Per pt he received J&J vaccine in Mar 2020. On Solumedrol. S/p Remdesivir. Monitor. 5. Sepsis, POA: 04/26 Covid-19 pneumonia. Followed by ID. 6. HTN: Monitor BP. Adjust meds as needed. 7. DM / Elevated bl glu: A1C 7.2. Monitor. Subjective: Patient was seen and examined at the bedside. Examination: General appearance: well-developed, appears stated age, obese, on HFNC O2 and NRB HEENT: atraumatic Neck: trachea midline Respiratory: coarse breath sounds Heart: S1S2, regular, no murmur Abdomen: soft, obese, bowel sounds heard, NT Integumentary: no rash Neurologic: alert, moving extremities Ext: no edema Subjective Date of service: 12/26/20 Principal diagnosis: COVID-19 PNA Objective - Vital Signs Vital signs: Vital Signs - 12hr 12/26/20 12/26/20 12/26/20 03:30 03:43 03:45 Temperature Pulse Rate 99 H 107 H 106 H Pulse Rate [ From Monitor] Respiratory 28 H 33 H 27 H Rate Blood Pressure 111/87 111/87 111/87 O2 Sat by Pulse 92 96 79 L Oximetry 12/26/20 12/26/20 12/26/20 04:00 04:01 04:15 Temperature 97.6 F Pulse Rate 117 H 104 H 91 H Pulse Rate [ 117 H From Monitor] Respiratory 29 H 27 H 28 H Rate Blood Pressure 123/84 123/84 O2 Sat by Pulse 94 96 96 Oximetry 12/26/20 12/26/20 12/26/20 04:30 04:45 05:01 Temperature Pulse Rate 96 H 105 H 91 H Pulse Rate [ From Monitor] Respiratory 28 H 36 H 23 Rate Blood Pressure 120/90 120/90 124/88 O2 Sat by Pulse 96 75 L 76 L Oximetry 12/26/20 12/26/20 12/26/20 05:15 05:31 05:45 Temperature Pulse Rate 89 103 H 101 H Pulse Rate [ From Monitor] Respiratory 30 H 30 H 28 H Rate Blood Pressure 124/88 107/83 107/83 O2 Sat by Pulse 73 L 84 100 Oximetry 12/26/20 12/26/20 12/26/20 06:01 06:15 06:31 Temperature Pulse Rate 92 H 102 H 101 H Pulse Rate [ From Monitor] Respiratory 27 H 30 H 27 H Rate Blood Pressure 107/83 128/83 121/79 O2 Sat by Pulse 83 L 84 95 Oximetry 12/26/20 12/26/20 12/26/20 06:45 07:00 07:05 Temperature Pulse Rate 86 100 H 102 H Pulse Rate [ From Monitor] Respiratory 25 H 27 H 32 H Rate Blood Pressure 121/79 121/79 147/98 O2 Sat by Pulse 80 L 83 L 98 Oximetry 12/26/20 12/26/20 12/26/20 07:15 07:30 07:45 Temperature Pulse Rate 86 88 102 H Pulse Rate [ From Monitor] Respiratory 24 25 H 27 H Rate Blood Pressure 119/80 121/75 121/75 O2 Sat by Pulse 97 92 84 Oximetry 12/26/20 12/26/20 12/26/20 08:00 08:01 08:15 Temperature 98.2 F Pulse Rate 100 H 110 H 93 H Pulse Rate [ From Monitor] Respiratory 34 H 27 H Rate Blood Pressure 147/98 147/98 O2 Sat by Pulse 98 93 89 Oximetry 12/26/20 12/26/20 12/26/20 08:30 08:45 09:01 Temperature Pulse Rate 90 82 90 Pulse Rate [ From Monitor] Respiratory 21 25 H 24 Rate Blood Pressure 186/110 186/110 140/71 O2 Sat by Pulse 98 97 97 Oximetry 12/26/20 12/26/20 12/26/20 09:15 09:30 09:45 Temperature Pulse Rate 108 H 111 H 121 H Pulse Rate [ From Monitor] Respiratory 24 25 H 28 H Rate Blood Pressure 186/110 158/103 140/71 O2 Sat by Pulse 99 100 86 Oximetry 12/26/20 12/26/20 12/26/20 10:01 10:15 10:30 Temperature Pulse Rate 116 H 97 H 107 H Pulse Rate [ From Monitor] Respiratory 25 H 28 H 20 Rate Blood Pressure 151/82 151/82 147/82 O2 Sat by Pulse 100 100 99 Oximetry 12/26/20 12/26/20 12/26/20 10:45 10:49 11:00 Temperature Pulse Rate 99 H 101 H 113 H Pulse Rate [ From Monitor] Respiratory 27 H 32 H Rate Blood Pressure 151/82 147/82 152/84 O2 Sat by Pulse 100 98 Oximetry 12/26/20 12/26/20 12/26/20 11:15 11:30 11:45 Temperature Pulse Rate 109 H 103 H 92 H Pulse Rate [ From Monitor] Respiratory 26 H 32 H 25 H Rate Blood Pressure 152/84 138/81 138/81 O2 Sat by Pulse 100 99 99 Oximetry - Lab 12/22/20 05:56 12/26/20 04:23 Most recent lab results ABG pH 7.446 (7.320-7.450) 12/23/20 13:06 ABG O2 Saturation 89.8 (0-100) 12/23/20 13:06 Calcium 8.5 mg/dL (8.4-10.2) 12/26/20 04:23 Urine Creatinine 134.1 mg/dL (0.1-20.0) H 12/23/20 00:40 Urine Sodium 26 mmol/L 12/23/20 00:40 Urine Total Protein 50 mg/dL (5-11.8) H 12/23/20 00:40 Medications & Allergies - Medications Allergies/Adverse Reactions: Allergies No Known Allergies Allergy (Verified 12/21/20 05:36) Home Medications: Home Medications Medication Instructions Recorded Confirmed Last Taken Type Losartan [Cozaar] 50 mg PO QDAY 12/20/20 12/20/20 12/20/20 07:00 History 50 Active Medications: Generic Name Dose Route Start Last Admin Trade Name Freq PRN Reason Stop Dose Admin Acetaminophen 650 mg 12/20/20 12:52 Acetaminophen 325 Mg Tab PO Q4H PRN Pain MILD(1-3)/Fever >100.5/KWON Ascorbic Acid 500 mg 12/20/20 22:00 12/26/20 10:50 Ascorbic Acid 500 Mg Tab PO 500 mg BID GUSTAVO Administration Cholecalciferol 1,000 unit 12/21/20 10:00 12/26/20 10:49 Cholecalciferol (Vit D3) 1000 Unit (25 Mcg) Tab PO 1,000 unit QDAY GUSTAVO Administration Enoxaparin Sodium 150 mg 12/21/20 22:00 12/26/20 10:50 Enoxaparin 150 Mg/1 Ml Inj SUB-Q 150 mg Q12HR GUSTAVO Administration Hydralazine HCl 10 mg 12/22/20 17:56 12/22/20 19:01 Hydralazine 20 Mg/1 Ml Inj IV 10 mg Q6H PRN Administration Hypertension Hydromorphone HCl 0.5 mg 12/20/20 12:52 Hydromorphone 1 Mg/1 Ml Inj IV Q23H PRN Pain , Severe (7-10) Diltiazem HCl 100 mg in 100 mls @ 5 mls/hr 12/25/20 18:55 12/26/20 10:57 Cardizem/D5w 100mg/100ml IV 5 mg/hr TITR GUSTAVO 5 mls/hr Administration Protocol 5 MG/HR Insulin Glargine 20 units 12/25/20 22:00 12/25/20 21:54 Insulin Glargine 100 Units/Ml SUB-Q 20 units QHS GUSTAVO Administration Insulin Human Lispro 0 unit 12/23/20 12:00 12/26/20 12:21 Insulin Lispro 100 Unit/Ml SUB-Q 4 unit Q6HR GUSTAVO Administration Protocol Methylprednisolone Sodium Succinate 80 mg 12/21/20 12:00 12/26/20 05:38 Methylprednisolone Sod Succinate 125 Mg/2 Ml Inj IV 12/31/20 06:01 80 mg Q8HR GUSTAVO Administration Metoprolol Tartrate 50 mg 12/21/20 16:00 12/26/20 10:49 Metoprolol Tartrate 50 Mg Tab PO 50 mg BID GUSTAVO Administration Ondansetron HCl 4 mg 12/20/20 12:52 Ondansetron 4 Mg/2 Ml Inj IV Q8H PRN Nausea And Vomiting Oxycodone/Acetaminophen 1 tab 12/20/20 12:52 12/22/20 22:12 Oxycodone /Acetaminophen 5-325mg Tab PO 1 tab Q12H PRN Administration Pain, Moderate (4-6) Sodium Chloride 10 ml 12/20/20 22:00 12/26/20 10:50 Sodium Chloride 0.9% 10 Ml Flush Syringe IV 10 ml BID GUSTAVO Administration Sodium Chloride 10 ml 12/20/20 12:52 Sodium Chloride 0.9% 10 Ml Flush Syringe IV PRN PRN LINE FLUSH Zinc Sulfate 220 mg 12/20/20 22:00 12/26/20 10:50 Zinc Sulfate 220 Mg Cap PO 220 mg BID GUSTAVO Administration
--- NOTE | 2020-12-26 16:08 | Progress Note ---
Assessment and Plan Assessment and plan: 50 YO Male with HTN, CHF, Obesity Hypoventilation Syndrome, Medication Noncompliance, Coronivirus Infection Diagnosed 1week ago presents to ED for evaluation. Patient reports "I cannot breathe". Patient states that he has experienced fatigue, shortness of breath, dry cough, decreased exercise tolerance, diminished sense of smell, diminished sense of taste over the past 1 week with persistent and worsening symptoms over the same timeframe. Patient is currently incarcerated and was seen by medical staff at the [facility] and was found to have a pulse oximetry in the 60s this a.m. EMS was notified and upon arrival the patient was found to be in respiratory distress and placed on supplemental oxygen via nonrebreather mask and subsequently transported to [facility] for further care and evaluation of the aforementioned symptoms. The patient was seen and evaluated in the emergency department. All lab and imaging studies reviewed. The patient was found to have a pulse oximetry of 78% on nonrebreathe r mask which is consistent with acute hypoxemic respiratory failure. Chest x- ray revealed bilateral pneumonia. The patient was admitted to medical floor and initiated on pneumonia protocol as well as coronavirus protocol. The patient was placed on high flow supplemental oxygen in the emergency department. Patient denies fever, chills, chest pain, palpitations, skin rash, recent ill contacts, unilateral leg swelling, calf pain, individual/family history of DVT/PE/bleeding/blood clotting disorders. No prior admission for review. No medication listed at time of admission for reconciliation. VQ scan ordered at time of admission and is currently pending. (1) Acute respiratory failure with hypoxia Current Visit: Yes Status: Acute Plan to address problem: Chest x-ray, VQ scan, high flow supplemental oxygen, pulse oximetry, will consider noninvasive positive pressure ventilation if patient is unable to maintain pulse oximetry on high flow supplemental oxygen. Pulmonary team consulted. (2) Coronavirus infection Current Visit: Yes Status: Acute Plan to address problem: Coronavirus protocol: IV steroid therapy, IV antibiotic therapy, supplemental oxygen, pulse oximetry, contact precautions, isolation precautions, vitamin C therapy, vitamin D therapy, zinc therapy, prophylactic anticoagulation. (3) Obesity hypoventilation syndrome Current Visit: Yes Status: Acute Plan to address problem: Balanced diet, increase physical activity discharge, outpatient pulmonary follow-up for sleep study. (4) Pneumonia Current Visit: Yes Status: Acute Plan to address problem: Pneumonia protocol: Chest x-ray, CBC, CMP, supplemental oxygen, pulse oximetry, nebulizer therapy, blood culture. (5) Stable congestive heart failure (6) Acute kidney failure with vasomotor nephropathy (7) bilateral DVT (8) DVT prophylaxis Current Visit: Yes Status: Acute Plan to address problem: SCDs bilateral lower extremities while in bed, on anticoagulation (9) Advance care planning Current Visit: Yes Status: Acute Plan to address problem: Disease education conducted, care plan discussed, diagnoses discussed, prognosis discussed, patient counseled regarding coronavirus vaccination within 90 days of discharge. Patient is full code, +30 minutes. 12/21: Continue supportive care, wean oxygen as tolerated, Pulmonary, Nephrology, ID input. Renal improving. Continue steroids, defer Remedesivir to the ID. CPAP at night due to CARINA 12/22: Patient remains persistently hypoxic, going to be moving the patient down to the IMCU as he is satting 86% on nonrebreather and also high flow. Prognosis very poor. 12/23: : Continue IMCU. Continue reinforcement for the patient management plan. Continue steroids and remdesivir. Monitor blood sugar closely. Poor prognosis 12/24: Extensive discussion about the patient to be compliant with management plan. Noted hyperkalemia Kayexalate ordered already for the patient. 12/25: Patient remains with poor prognosis hyperkalemia persisted despite improving renal function. Follow-up Kayexalate has been given this morning. Blood sugar still elevated this could be steroid-induced versus underlying diabetes we will check an A1c and in the meantime we will add Lantus at nighttime for better coverage. 12/26: Patient seen and examined remains profoundly hypoxic. Blood sugar still controlled at this time. He did report a fall yesterday but denied any head trauma CT of the head reviewed negative. Counseling provided on compliance. He also has profound bilateral DVT patient is on full dose anticoagulation while is not clear if this developed here on anticoagulation it most likely has been p resent prior to presentation. Nevertheless we will consult vascular to further evaluate. Electrolytes appear to have been repleted we will recheck labs in a.m. due to profound leukocytosis. cct 35mins. History Interval history: Patient seen and examined was on high flow this morning down to 90%. Patient sustained a fall yesterday. Hospitalist Physical - Physical exam Narrative exam: VITAL SIGNS: Reviewed. GENERAL: The patient appears normally developed, morbidly obese on high flow vital signs as documented. HEAD: No signs of head trauma. EYES: Pupils are equal. Extraocular motions intact. EARS: Hearing grossly intact. MOUTH: Oropharynx is normal. NECK: No adenopathy, no JVD. CHEST: Chest with diminished breath sounds bilaterally. No wheezes, rales, or rhonchi. CARDIAC: Regular rate and rhythm. S1 and S2, without murmurs, gallops, or rubs. VASCULAR: No Edema. Peripheral pulses normal and equal in all extremities. ABDOMEN: Soft, non tender and non distended. No rebound or guarding, and no masses palpated. Bowel Sounds normal. MUSCULOSKELETAL: Good range of motion of all major joints. Extremities without clubbing, cyanosis or edema. NEUROLOGIC EXAM: Alert and oriented x 3 No focal sensory or strength deficits. Speech normal. Follows commands. PSYCHIATRIC: Mood normal. SKIN: detail exam as documented in skin assessment - Constitutional Vitals: Temp Pulse Resp BP Pulse Ox 98.2 F 92 H 25 H 138/81 99 12/26/20 08:00 12/26/20 11:45 12/26/20 11:45 12/26/20 11:45 12/26/20 11:45 General appearance: Present: no acute distress HEART Score - HEART Score Troponin: Troponin T < 0.010 ng/mL (0.00-0.029) 12/21/20 18:26 Results - Labs CBC & Chem 7: 12/22/20 05:56 12/26/20 04:23 Labs: Laboratory Last Values WBC 26.6 K/mm3 (4.5-11.0) H 12/22/20 05:56 RBC 5.22 M/mm3 (3.65-5.03) H 12/22/20 05:56 Hgb 14.4 gm/dl (11.8-15.2) 12/22/20 05:56 Hct 44.4 % (35.5-45.6) 12/22/20 05:56 MCV 85 fl (84-94) 12/22/20 05:56 MCH 28 pg (28-32) 12/22/20 05:56 MCHC 33 % (32-34) 12/22/20 05:56 RDW 14.3 % (13.2-15.2) 12/22/20 05:56 Plt Count 145 K/mm3 (140-440) 12/22/20 05:56 Add Manual Diff Complete 12/21/20 06:10 Total Counted 100 12/21/20 06:10 Seg Neuts % (Manual) 89.0 % (40.0-70.0) H 12/21/20 06:10 Band Neutrophils % 3.0 % 12/21/20 06:10 Lymphocytes % (Manual) 5.0 % (13.4-35.0) L 12/20/20 11:31 Reactive Lymphs % (Man) 2.0 % 12/21/20 06:10 Monocytes % (Manual) 1.0 % (0.0-7.3) 12/21/20 06:10 Myelocytes % 4.0 % 12/21/20 06:10 Blast Cells % 1.0 % 12/21/20 06:10 Nucleated RBC % 1.0 % (0.0-0.9) H 12/21/20 06:10 Seg Neutrophils # Man 17.9 K/mm3 (1.8-7.7) H 12/21/20 06:10 Band Neutrophils # 0.6 K/mm3 12/21/20 06:10 Lymphocytes # (Manual) 0.0 K/mm3 (1.2-5.4) L 12/21/20 06:10 Abs React Lymphs (Man) 0.4 K/mm3 12/21/20 06:10 Monocytes # (Manual) 0.2 K/mm3 (0.0-0.8) 12/21/20 06:10 Eosinophils # (Manual) 0.0 K/mm3 (0.0-0.4) 12/21/20 06:10 Basophils # (Manual) 0.0 K/mm3 (0.0-0.1) 12/21/20 06:10 Metamyelocytes # 0.0 K/mm3 12/21/20 06:10 Myelocytes # 0.8 K/mm3 12/21/20 06:10 Promyelocytes # 0.0 K/mm3 12/21/20 06:10 Blast Cells # 0.1 K/mm3 12/21/20 06:10 WBC Morphology Not Reportable 12/21/20 06:10 Hypersegmented Neuts Not Reportable 12/21/20 06:10 Hyposegmented Neuts Not Reportable 12/21/20 06:10 Hypogranular Neuts Not Reportable 12/21/20 06:10 Smudge Cells Not Reportable 12/21/20 06:10 Toxic Granulation Not Reportable 12/21/20 06:10 Toxic Vacuolation Not Reportable 12/21/20 06:10 Dohle Bodies Not Reportable 12/21/20 06:10 Pelger-Huet Anomaly Not Reportable 12/21/20 06:10 Chantel Rods Not Reportable 12/21/20 06:10 Platelet Estimate Consistent w auto 12/21/20 06:10 Clumped Platelets Not Reportable 12/21/20 06:10 Plt Clumps, EDTA Not Reportable 12/21/20 06:10 Large Platelets Not Reportable 12/21/20 06:10 Giant Platelets Not Reportable 12/21/20 06:10 Platelet Satelliting Not Reportable 12/21/20 06:10 Plt Morphology Comment Not Reportable 12/21/20 06:10 RBC Morphology Not Reportable 12/21/20 06:10 Dimorphic RBCs Not Reportable 12/21/20 06:10 Polychromasia Not Reportable 12/21/20 06:10 Hypochromasia Not Reportable 12/21/20 06:10 Poikilocytosis Not Reportable 12/21/20 06:10 Anisocytosis Not Reportable 12/21/20 06:10 Microcytosis Not Reportable 12/21/20 06:10 Macrocytosis Not Reportable 12/21/20 06:10 Spherocytes Rare 12/21/20 06:10 Pappenheimer Bodies Not Reportable 12/21/20 06:10 Sickle Cells Not Reportable 12/21/20 06:10 Target Cells Rare 12/21/20 06:10 Tear Drop Cells Not Reportable 12/21/20 06:10 Ovalocytes Not Reportable 12/21/20 06:10 Helmet Cells Not Reportable 12/21/20 06:10 [place] Bodies Not Reportable 12/21/20 06:10 Oark Rings Not Reportable 12/21/20 06:10 Chaparro Cells Not Reportable 12/21/20 06:10 Bite Cells Not Reportable 12/21/20 06:10 Crenated Cell Not Reportable 12/21/20 06:10 Elliptocytes Not Reportable 12/21/20 06:10 Acanthocytes (Spur) Not Reportable 12/21/20 06:10 Rouleaux Not Reportable 12/21/20 06:10 Hemoglobin C Crystals Not Reportable 12/21/20 06:10 Schistocytes Not Reportable 12/21/20 06:10 Malaria parasites Not Reportable 12/21/20 06:10 Andrew Bodies Not Reportable 12/21/20 06:10 Hem Pathologist Commnt No 12/21/20 06:10 D-Dimer 6017.45 ng/mlDDU (0-234) H 12/25/20 11:14 ABG pH 7.446 (7.320-7.450) 12/23/20 13:06 POC ABG pCO2 29.6 mmHg (32.0-48.0) L 12/23/20 13:06 POC ABG pO2 57.8 mmHg (83-108) L 12/23/20 13:06 POC ABG HCO3 19.9 12/23/20 13:06 ABG O2 Saturation 89.8 (0-100) 12/23/20 13:06 POC ABG Base Excess -2.8 12/23/20 13:06 ABG Hemoglobin 15.3 (12.0-17.5) 12/23/20 13:06 ABG Oxyhemoglobin 88.9 (94-98) L 12/23/20 13:06 ABG Methemoglobin 0.3 (0.0-1.5) 12/23/20 13:06 ABG Sodium 140.6 mmol/L (136.0-145.0) 12/23/20 13:06 ABG Potassium 4.7 mmol/L (3.40-4.50) H 12/23/20 13:06 ABG Chloride 107.0 mmol/L (98-107) 12/23/20 13:06 ABG Glucose 286 mg/dL (65-95) H 12/23/20 13:06 Carboxyhemoglobin 0.7 (0.5-1.5) 12/23/20 13:06 FiO2 % 80.0 12/23/20 13:06 Sodium 146 mmol/L (137-145) H 12/26/20 04:23 Potassium 4.1 mmol/L (3.6-5.0) D 12/26/20 04:23 Chloride 106.8 mmol/L (98-107) 12/26/20 04:23 Carbon Dioxide 26 mmol/L (22-30) 12/26/20 04:23 Anion Gap 17 mmol/L 12/26/20 04:23 BUN 49 mg/dL (9-20) H 12/26/20 04:23 Creatinine 1.2 mg/dL (0.8-1.3) 12/26/20 04:23 Estimated GFR > 60 ml/min 12/26/20 04:23 BUN/Creatinine Ratio 41 % 12/26/20 04:23 Glucose 257 mg/dL (75-100) H 12/26/20 04:23 POC Glucose 231 mg/dL (70-105) H 12/26/20 11:50 Hemoglobin A1c 7.2 % (4-6) H 12/23/20 05:15 Calcium 8.5 mg/dL (8.4-10.2) 12/26/20 04:23 Ferritin 1385.0 ng/mL (30.0-300.0) H 12/25/20 11:14 Total Bilirubin 0.70 mg/dL (0.1-1.2) 12/24/20 04:56 AST 44 units/L (5-40) H 12/24/20 04:56 ALT 105 units/L (7-56) H 12/24/20 04:56 Alkaline Phosphatase 52 units/L (35-129) 12/24/20 04:56 Lactate Dehydrogenase 10 units/L (91-180) L 12/20/20 11:31 Troponin T < 0.010 ng/mL (0.00-0.029) 12/21/20 18:26 C-Reactive Protein 0.60 mg/dL (0.00-1.30) 12/25/20 11:14 NT-Pro-B Natriuret Pep 6191 pg/mL (0-900) H 12/21/20 14:32 Total Protein 7.5 g/dL (6.3-8.2) 12/24/20 04:56 Albumin 3.5 g/dL (3.9-5) L 12/24/20 04:56 Albumin/Globulin Ratio 0.9 % 12/24/20 04:56 Triglycerides 226 mg/dL (2-149) H 12/20/20 11:31 Cholesterol 175 mg/dL (50-199) 12/20/20 11:31 LDL Cholesterol Direct 98 mg/dL (50-130) 12/20/20 11:31 HDL Cholesterol 31 mg/dL (40-59) L 12/20/20 11:31 Cholesterol/HDL Ratio 5.64 % 12/20/20 11:31 Procalcitonin 1.45 ng/mL (<0.15) 12/20/20 11:31 PTH Intact 109.4 pg/mL (15-65) H 12/23/20 05:15 Arterial Blood Glucose 286 mg/dL (65-95) H 12/23/20 13:06 Urine Color Straw (Yellow) 12/23/20 00:40 Urine Turbidity Clear (Clear) 12/23/20 00:40 Urine pH 5.0 (5.0-7.0) 12/23/20 00:40 Ur Specific [place] 1.030 (1.003-1.030) 12/23/20 00:40 Urine Protein 30 mg/dl mg/dL (Negative) 12/23/20 00:40 Urine Glucose (UA) Negative mg/dL (Negative) 12/23/20 00:40 Urine Ketones Negative mg/dL (Negative) 12/23/20 00:40 Urine Blood Negative (Negative) 12/23/20 00:40 Urine Nitrite Negative (Negative) 12/23/20 00:40 Ur Reducing Substances Not Reportable 12/23/20 00:40 Urine Bilirubin Negative (Negative) 12/23/20 00:40 Urine Ictotest Not Reportable 12/23/20 00:40 Urine Urobilinogen < 2.0 mg/dL (<2.0) 12/23/20 00:40 Ur Leukocyte Esterase Negative (Negative) 12/23/20 00:40 Urine WBC (Auto) 8.0 /HPF (0.0-6.0) H 12/23/20 00:40 Urine RBC (Auto) 1.0 /HPF (0.0-6.0) 12/23/20 00:40 U Epithel Cells (Auto) < 1.0 /HPF (0-13.0) 12/23/20 00:40 Hyaline Casts 1 /LPF 12/23/20 00:40 Urine Mucus Few /HPF 12/23/20 00:40 Urine Eosinophils None seen (None Seen) 12/23/20 00:40 Urine Creatinine 134.1 mg/dL (0.1-20.0) H 12/23/20 00:40 Protein/Creatinin Ratio 0.37 12/23/20 00:40 Urine Sodium 26 mmol/L 12/23/20 00:40 Urine Total Protein 50 mg/dL (5-11.8) H 12/23/20 00:40 Coronavirus (PCR) Positive (Negative) A 12/21/20 Unknown Murray/IV: Voiding Method Urinal Active Medications - Current Medications Current Medications: Generic Name Dose Route Start Last Admin Trade Name Freq PRN Reason Stop Dose Admin Acetaminophen 650 mg 12/20/20 12:52 Acetaminophen 325 Mg Tab PO Q4H PRN Pain MILD(1-3)/Fever >100.5/KWON Ascorbic Acid 500 mg 12/20/20 22:00 12/26/20 10:50 Ascorbic Acid 500 Mg Tab PO 500 mg BID GUSTAVO Administration Cholecalciferol 1,000 unit 12/21/20 10:00 12/26/20 10:49 Cholecalciferol (Vit D3) 1000 Unit (25 Mcg) Tab PO 1,000 unit QDAY GUSTAVO Administration Enoxaparin Sodium 150 mg 12/21/20 22:00 12/26/20 10:50 Enoxaparin 150 Mg/1 Ml Inj SUB-Q 150 mg Q12HR GUSTAVO Administration Hydralazine HCl 10 mg 12/22/20 17:56 12/22/20 19:01 Hydralazine 20 Mg/1 Ml Inj IV 10 mg Q6H PRN Administration Hypertension Hydromorphone HCl 0.5 mg 12/20/20 12:52 Hydromorphone 1 Mg/1 Ml Inj IV Q23H PRN Pain , Severe (7-10) Diltiazem HCl 100 mg in 100 mls @ 5 mls/hr 12/25/20 18:55 12/26/20 10:57 Cardizem/D5w 100mg/100ml IV 5 mg/hr TITR GUSTAVO 5 mls/hr Administration Protocol 5 MG/HR Insulin Glargine 20 units 12/25/20 22:00 12/25/20 21:54 Insulin Glargine 100 Units/Ml SUB-Q 20 units QHS GUSTAVO Administration Insulin Human Lispro 0 unit 12/23/20 12:00 12/26/20 12:21 Insulin Lispro 100 Unit/Ml SUB-Q 4 unit Q6HR GUSTAVO Administration Protocol Methylprednisolone Sodium Succinate 80 mg 12/21/20 12:00 12/26/20 15:24 Methylprednisolone Sod Succinate 125 Mg/2 Ml Inj IV 12/31/20 06:01 80 mg Q8HR GUSTAVO Administration Metoprolol Tartrate 50 mg 12/21/20 16:00 12/26/20 10:49 Metoprolol Tartrate 50 Mg Tab PO 50 mg BID GUSTAVO Administration Ondansetron HCl 4 mg 12/20/20 12:52 Ondansetron 4 Mg/2 Ml Inj IV Q8H PRN Nausea And Vomiting Oxycodone/Acetaminophen 1 tab 12/20/20 12:52 12/22/20 22:12 Oxycodone /Acetaminophen 5-325mg Tab PO 1 tab Q12H PRN Administration Pain, Moderate (4-6) Sodium Chloride 10 ml 12/20/20 22:00 12/26/20 10:50 Sodium Chloride 0.9% 10 Ml Flush Syringe IV 10 ml BID GUSTAVO Administration Sodium Chloride 10 ml 12/20/20 12:52 Sodium Chloride 0.9% 10 Ml Flush Syringe IV PRN PRN LINE FLUSH Zinc Sulfate 220 mg 12/20/20 22:00 12/26/20 10:50 Zinc Sulfate 220 Mg Cap PO 220 mg BID GUSTAVO Administration
[2020-12-26] MEDS: INSULIN GLARGINE 100 UNITS/ML SUB-Q SCH (22:56)
[2020-12-27] MEDS: INSULIN LISPRO 100 UNIT/ML SUB-Q SCH ×4 (01:01→19:09)
[2020-12-27 05:33] LABS: Hematocrit 44.8 % (35.5-45.6); Hemoglobin 14.3 gm/dl (11.8-15.2); Mean Corpuscular HGB Conc 32 % (32-34); Mean Corpuscular Volume 87 fl (84-94); Platelet Count 185 K/mm3 (140-440); Red Blood Count 5.17 M/mm3 (3.65-5.03); Red Cell Distribution Width 14.5 % (13.2-15.2)
[2020-12-27 05:45] LABS: Alanine Aminotransferase 80 units/L (7-56); BUN/Creatinine Ratio 48; Blood Urea Nitrogen 53 mg/dL (9-20); Calcium 8.4 mg/dL (8.4-10.2); Hemolysis Index 4
[2020-12-27] MEDS: methylPREDNISolone Sod Succinate 125 MG/2 ML INJ IV SCH ×3 (06:11→21:06)
--- NOTE | 2020-12-27 08:10 | Progress Note ---
Assessment and Plan 1. Acute kidney injury: NAVJOT in the setting of Covid-19 infection and sepsis. Suspect ATN. Low FeNa. Renal US negative. Monitor renal function. Creatinine level is improving. Avoid nephrotoxic agents. Meds dosage based on GFR. 2. FEN: Hyperkalemia, improved, monitor. Monitor lytes and volume status. 3. Acute hypoxic resp failure, POA: 2/ Covid-19 PNA. Test positive for Covid-19. Per pt he received J&J vaccine in Mar 2020. On HFNC O2 and NRB. Followed by Pulmonary. 4. Covid-19 PNA, POA: Test positive for Covid-19. Per pt he received J&J vaccine in Mar 2020. On Solumedrol. S/p Remdesivir. Monitor. 5. Sepsis, POA: 04/26 Covid-19 pneumonia. Followed by ID. 6. HTN: Monitor BP. Adjust meds as needed. 7. DM / Elevated bl glu: A1C 7.2. Monitor. Subjective: Patient was seen and examined at the bedside. Examination: General appearance: well-developed, appears stated age, obese, on HFNC O2 and NRB HEENT: atraumatic Neck: trachea midline Respiratory: coarse breath sounds Heart: S1S2, regular, no murmur Abdomen: soft, obese, bowel sounds heard, NT Integumentary: no rash Neurologic: alert, moving extremities Ext: no edema Subjective Date of service: 12/27/20 Principal diagnosis: COVID-19 PNA Objective - Vital Signs Vital signs: Vital Signs - 12hr 12/26/20 12/26/20 12/26/20 20:15 20:31 20:40 Temperature Pulse Rate 96 H 100 H 101 H Pulse Rate [ From Monitor] Respiratory 37 H 38 H Rate Blood Pressure 144/80 147/78 O2 Sat by Pulse 100 Oximetry 12/26/20 12/26/20 12/26/20 20:45 20:47 21:00 Temperature Pulse Rate 98 H 92 H Pulse Rate [ From Monitor] Respiratory 36 H 33 H Rate Blood Pressure 148/82 147/78 O2 Sat by Pulse 98 99 99 Oximetry 12/26/20 12/26/20 12/26/20 21:15 21:30 21:45 Temperature Pulse Rate 101 H 86 86 Pulse Rate [ From Monitor] Respiratory 33 H 26 H 32 H Rate Blood Pressure 147/78 165/63 165/63 O2 Sat by Pulse 89 96 95 Oximetry 12/26/20 12/26/20 12/26/20 22:01 22:15 22:30 Temperature Pulse Rate 100 H 89 89 Pulse Rate [ From Monitor] Respiratory 24 27 H 33 H Rate Blood Pressure 159/81 159/81 167/83 O2 Sat by Pulse 95 98 98 Oximetry 12/26/20 12/26/20 12/26/20 22:45 22:54 23:00 Temperature Pulse Rate 96 H 108 H 100 H Pulse Rate [ From Monitor] Respiratory 30 H 36 H Rate Blood Pressure 167/83 167/83 169/85 O2 Sat by Pulse 98 96 Oximetry 12/26/20 12/26/20 12/26/20 23:15 23:30 23:45 Temperature Pulse Rate 94 H 88 89 Pulse Rate [ From Monitor] Respiratory 33 H 26 H 23 Rate Blood Pressure 167/83 161/88 161/88 O2 Sat by Pulse 98 98 98 Oximetry 12/27/20 12/27/20 12/27/20 00:00 00:10 00:15 Temperature 98.8 F Pulse Rate 80 80 78 Pulse Rate [ From Monitor] Respiratory 33 H 36 H Rate Blood Pressure 156/82 161/88 O2 Sat by Pulse 95 96 Oximetry 12/27/20 12/27/20 12/27/20 00:30 00:45 01:00 Temperature Pulse Rate 80 85 78 Pulse Rate [ From Monitor] Respiratory 33 H 32 H 32 H Rate Blood Pressure 160/85 160/85 160/86 O2 Sat by Pulse 96 96 97 Oximetry 12/27/20 12/27/20 12/27/20 01:15 01:30 01:45 Temperature Pulse Rate 84 82 87 Pulse Rate [ From Monitor] Respiratory 36 H 24 35 H Rate Blood Pressure 160/86 161/84 161/84 O2 Sat by Pulse 97 93 93 Oximetry 12/27/20 12/27/20 12/27/20 02:00 02:15 02:31 Temperature Pulse Rate 82 83 96 H Pulse Rate [ From Monitor] Respiratory 28 H 27 H 25 H Rate Blood Pressure 145/83 145/83 152/55 O2 Sat by Pulse 99 95 97 Oximetry 12/27/20 12/27/20 12/27/20 02:45 03:01 03:15 Temperature Pulse Rate 83 82 85 Pulse Rate [ From Monitor] Respiratory 29 H 27 H 33 H Rate Blood Pressure 152/55 138/57 138/57 O2 Sat by Pulse 98 97 94 Oximetry 12/27/20 12/27/20 12/27/20 03:30 03:37 03:45 Temperature Pulse Rate 99 H 90 Pulse Rate [ From Monitor] Respiratory 26 H 27 H Rate Blood Pressure 149/60 149/60 O2 Sat by Pulse 98 97 97 Oximetry 12/27/20 12/27/20 12/27/20 04:00 04:30 05:01 Temperature 98.2 F Pulse Rate 85 92 H 89 Pulse Rate [ 89 From Monitor] Respiratory 33 H 30 H 32 H Rate Blood Pressure 160/106 145/78 117/59 O2 Sat by Pulse 98 97 96 Oximetry 12/27/20 12/27/20 12/27/20 05:30 06:00 06:30 Temperature Pulse Rate 90 89 100 H Pulse Rate [ From Monitor] Respiratory 36 H 38 H 31 H Rate Blood Pressure 133/76 121/49 121/43 O2 Sat by Pulse 98 92 95 Oximetry 12/27/20 12/27/20 07:00 07:54 Temperature Pulse Rate 98 H Pulse Rate [ From Monitor] Respiratory 39 H Rate Blood Pressure 139/78 O2 Sat by Pulse 90 95 Oximetry - Lab 12/27/20 04:46 12/27/20 04:46 Most recent lab results ABG pH 7.446 (7.320-7.450) 12/23/20 13:06 ABG O2 Saturation 89.8 (0-100) 12/23/20 13:06 Calcium 8.4 mg/dL (8.4-10.2) 12/27/20 04:46 Urine Creatinine 134.1 mg/dL (0.1-20.0) H 12/23/20 00:40 Urine Sodium 26 mmol/L 12/23/20 00:40 Urine Total Protein 50 mg/dL (5-11.8) H 12/23/20 00:40 Medications & Allergies - Medications Allergies/Adverse Reactions: Allergies No Known Allergies Allergy (Verified 12/21/20 05:36) Home Medications: Home Medications Medication Instructions Recorded Confirmed Last Taken Type Losartan [Cozaar] 50 mg PO QDAY 12/20/20 12/20/20 12/20/20 07:00 History 50 Active Medications: Generic Name Dose Route Start Last Admin Trade Name Freq PRN Reason Stop Dose Admin Acetaminophen 650 mg 12/20/20 12:52 Acetaminophen 325 Mg Tab PO Q4H PRN Pain MILD(1-3)/Fever >100.5/KWON Ascorbic Acid 500 mg 12/20/20 22:00 12/26/20 22:55 Ascorbic Acid 500 Mg Tab PO 500 mg BID GUSTAVO Administration Cholecalciferol 1,000 unit 12/21/20 10:00 12/26/20 10:49 Cholecalciferol (Vit D3) 1000 Unit (25 Mcg) Tab PO 1,000 unit QDAY GUSTAVO Administration Enoxaparin Sodium 150 mg 12/21/20 22:00 12/26/20 22:57 Enoxaparin 150 Mg/1 Ml Inj SUB-Q 150 mg Q12HR GUSTAVO Administration Hydralazine HCl 10 mg 12/22/20 17:56 12/22/20 19:01 Hydralazine 20 Mg/1 Ml Inj IV 10 mg Q6H PRN Administration Hypertension Hydromorphone HCl 0.5 mg 12/20/20 12:52 Hydromorphone 1 Mg/1 Ml Inj IV Q23H PRN Pain , Severe (7-10) Diltiazem HCl 100 mg in 100 mls @ 5 mls/hr 12/25/20 18:55 12/27/20 06:12 Cardizem/D5w 100mg/100ml IV 0 mg/hr TITR GUSTAVO 0 mls/hr Titration Protocol 5 MG/HR Insulin Glargine 20 units 12/25/20 22:00 12/26/20 22:56 Insulin Glargine 100 Units/Ml SUB-Q 20 units QHS GUSTAVO Administration Insulin Human Lispro 0 unit 12/23/20 12:00 12/27/20 06:11 Insulin Lispro 100 Unit/Ml SUB-Q 3 unit Q6HR GUSTAVO Administration Protocol Methylprednisolone Sodium Succinate 80 mg 12/21/20 12:00 12/27/20 06:11 Methylprednisolone Sod Succinate 125 Mg/2 Ml Inj IV 12/31/20 06:01 80 mg Q8HR GUSTAVO Administration Metoprolol Tartrate 50 mg 12/21/20 16:00 12/26/20 22:54 Metoprolol Tartrate 50 Mg Tab PO 50 mg BID GUSTAVO Administration Ondansetron HCl 4 mg 12/20/20 12:52 Ondansetron 4 Mg/2 Ml Inj IV Q8H PRN Nausea And Vomiting Oxycodone/Acetaminophen 1 tab 12/20/20 12:52 12/22/20 22:12 Oxycodone /Acetaminophen 5-325mg Tab PO 1 tab Q12H PRN Administration Pain, Moderate (4-6) Sodium Chloride 10 ml 12/20/20 22:00 12/26/20 22:56 Sodium Chloride 0.9% 10 Ml Flush Syringe IV 10 ml BID GUSTAVO Administration Sodium Chloride 10 ml 12/20/20 12:52 Sodium Chloride 0.9% 10 Ml Flush Syringe IV PRN PRN LINE FLUSH Zinc Sulfate 220 mg 12/20/20 22:00 12/26/20 22:55 Zinc Sulfate 220 Mg Cap PO 220 mg BID GUSTAVO Administration
--- NOTE | 2020-12-27 10:04 | Progress Note ---
Assessment and Plan 50 y/o obese male, COVID positive admitted with acute hypoxic respiratory failure, renal failure and elevated D-Dimer 12/27/20: Need to remember that BNP was greater thann 6k on admit. Now has bilateral DVT's extensive. Spoke with IMS yesterday with plans to consult vascular for evaluation already on therapeutic lovenox. Prone if possible. continue steroids. Guarded prognosis. 12/26/20: Lasix has not been given lately. Will hold off today as well. Follow up renal recs. Prone patient if able. Continue steroids. Guarded prognosis. 12/23/20: Lasix 40 again today. Suggest daily therapy at least for several days to help with volume overload. This could help with oxygenation. Steroids and Remdesivir. Prone if able. BP control. Guarded prognosis. 1. Ordered stat BNP 2. Agree with Echo, follow up read as it has been done per the chart 3. Agree with steroids right now 4. Was given lasix yesterday and renal function improved. Agree with continued therapy, and follow up renal recs 5. Remdesivir ordered by ID 6. Prone as tolerated during the day and sleep prone at night 7. Guarded prognosis. Subjective Date of service: 12/27/20 Principal diagnosis: COVID-19 PNA Interval history: No acute events. Just on HFNC now but at 100%. Objective Vital Signs - 12hr 12/26/20 12/26/20 12/26/20 22:15 22:30 22:45 Temperature Pulse Rate 89 89 96 H Pulse Rate [ From Monitor] Respiratory 27 H 33 H 30 H Rate Blood Pressure 159/81 167/83 167/83 O2 Sat by Pulse 98 98 98 Oximetry 12/26/20 12/26/20 12/26/20 22:54 23:00 23:15 Temperature Pulse Rate 108 H 100 H 94 H Pulse Rate [ From Monitor] Respiratory 36 H 33 H Rate Blood Pressure 167/83 169/85 167/83 O2 Sat by Pulse 96 98 Oximetry 12/26/20 12/26/20 12/27/20 23:30 23:45 00:00 Temperature 98.8 F Pulse Rate 88 89 80 Pulse Rate [ From Monitor] Respiratory 26 H 23 33 H Rate Blood Pressure 161/88 161/88 156/82 O2 Sat by Pulse 98 98 95 Oximetry 12/27/20 12/27/20 12/27/20 00:10 00:15 00:30 Temperature Pulse Rate 80 78 80 Pulse Rate [ From Monitor] Respiratory 36 H 33 H Rate Blood Pressure 161/88 160/85 O2 Sat by Pulse 96 96 Oximetry 12/27/20 12/27/20 12/27/20 00:45 01:00 01:15 Temperature Pulse Rate 85 78 84 Pulse Rate [ From Monitor] Respiratory 32 H 32 H 36 H Rate Blood Pressure 160/85 160/86 160/86 O2 Sat by Pulse 96 97 97 Oximetry 12/27/20 12/27/20 12/27/20 01:30 01:45 02:00 Temperature Pulse Rate 82 87 82 Pulse Rate [ From Monitor] Respiratory 24 35 H 28 H Rate Blood Pressure 161/84 161/84 145/83 O2 Sat by Pulse 93 93 99 Oximetry 12/27/20 12/27/20 12/27/20 02:15 02:31 02:45 Temperature Pulse Rate 83 96 H 83 Pulse Rate [ From Monitor] Respiratory 27 H 25 H 29 H Rate Blood Pressure 145/83 152/55 152/55 O2 Sat by Pulse 95 97 98 Oximetry 12/27/20 12/27/20 12/27/20 03:01 03:15 03:30 Temperature Pulse Rate 82 85 99 H Pulse Rate [ From Monitor] Respiratory 27 H 33 H 26 H Rate Blood Pressure 138/57 138/57 149/60 O2 Sat by Pulse 97 94 98 Oximetry 12/27/20 12/27/20 12/27/20 03:37 03:45 04:00 Temperature 98.2 F Pulse Rate 90 85 Pulse Rate [ 89 From Monitor] Respiratory 27 H 33 H Rate Blood Pressure 149/60 160/106 O2 Sat by Pulse 97 97 98 Oximetry 12/27/20 12/27/20 12/27/20 04:30 05:01 05:30 Temperature Pulse Rate 92 H 89 90 Pulse Rate [ From Monitor] Respiratory 30 H 32 H 36 H Rate Blood Pressure 145/78 117/59 133/76 O2 Sat by Pulse 97 96 98 Oximetry 12/27/20 12/27/20 12/27/20 06:00 06:30 07:00 Temperature Pulse Rate 89 100 H 98 H Pulse Rate [ From Monitor] Respiratory 38 H 31 H 39 H Rate Blood Pressure 121/49 121/43 139/78 O2 Sat by Pulse 92 95 90 Oximetry 12/27/20 12/27/20 12/27/20 07:54 08:00 08:41 Temperature 97.7 F Pulse Rate Pulse Rate [ From Monitor] Respiratory Rate Blood Pressure O2 Sat by Pulse 95 90 Oximetry CBC and BMP: 12/27/20 04:46 12/27/20 04:46 ABG, PT/INR, D-dimer: ABG ABG pH 7.446 (7.320-7.450) 12/23/20 13:06 POC ABG pCO2 29.6 mmHg (32.0-48.0) L 12/23/20 13:06 POC ABG pO2 57.8 mmHg (83-108) L 12/23/20 13:06 POC ABG HCO3 19.9 12/23/20 13:06 ABG O2 Saturation 89.8 (0-100) 12/23/20 13:06 PT/INR, D-dimer D-Dimer 6017.45 ng/mlDDU (0-234) H 12/25/20 11:14 Abnormal lab findings: Abnormal Labs 12/20/20 12/20/20 12/20/20 11:31 11:31 11:31 WBC 16.5 H RBC 5.27 H Hgb Hct Seg Neuts % (Manual) 90.0 H Lymphocytes % (Manual) 5.0 L Nucleated RBC % Seg Neutrophils # Man 14.9 H Lymphocytes # (Manual) 0.8 L D-Dimer > 00670 H POC ABG pCO2 POC ABG pO2 ABG Oxyhemoglobin ABG Potassium ABG Glucose Sodium 130 L Potassium Chloride 94.5 L Carbon Dioxide BUN 64 H Creatinine 2.6 H Glucose 154 H POC Glucose Hemoglobin A1c Calcium Ferritin AST ALT Lactate Dehydrogenase Troponin T C-Reactive Protein NT-Pro-B Natriuret Pep Albumin 3.5 L Triglycerides HDL Cholesterol PTH Intact Arterial Blood Glucose Urine WBC (Auto) Urine Creatinine Urine Total Protein Coronavirus (PCR) 12/20/20 12/21/20 12/21/20 11:31 06:10 06:10 WBC 20.1 H RBC 5.55 H Hgb 15.4 H Hct 47.3 H Seg Neuts % (Manual) 89.0 H Lymphocytes % (Manual) Nucleated RBC % 1.0 H Seg Neutrophils # Man 17.9 H Lymphocytes # (Manual) 0.0 L D-Dimer POC ABG pCO2 POC ABG pO2 ABG Oxyhemoglobin ABG Potassium ABG Glucose Sodium 136 L Potassium Chloride Carbon Dioxide BUN 57 H Creatinine 1.8 H Glucose 193 H POC Glucose Hemoglobin A1c Calcium Ferritin AST ALT Lactate Dehydrogenase 10 L Troponin T 0.106 H* C-Reactive Protein 5.20 H NT-Pro-B Natriuret Pep Albumin Triglycerides 226 H HDL Cholesterol 31 L PTH Intact Arterial Blood Glucose Urine WBC (Auto) Urine Creatinine Urine Total Protein Coronavirus (PCR) 12/21/20 12/21/20 12/21/20 13:29 14:32 Unknown WBC RBC Hgb Hct Seg Neuts % (Manual) Lymphocytes % (Manual) Nucleated RBC % Seg Neutrophils # Man Lymphocytes # (Manual) D-Dimer POC ABG pCO2 POC ABG pO2 ABG Oxyhemoglobin ABG Potassium ABG Glucose Sodium 134 L Potassium Chloride Carbon Dioxide BUN 57 H Creatinine 1.8 H Glucose 340 H POC Glucose Hemoglobin A1c Calcium 8.3 L Ferritin AST ALT Lactate Dehydrogenase Troponin T C-Reactive Protein NT-Pro-B Natriuret Pep 6191 H Albumin 3.3 L Triglycerides HDL Cholesterol PTH Intact Arterial Blood Glucose Urine WBC (Auto) Urine Creatinine Urine Total Protein Coronavirus (PCR) Positive A 12/22/20 12/22/20 12/22/20 05:56 05:56 17:21 WBC 26.6 H RBC 5.22 H Hgb Hct Seg Neuts % (Manual) Lymphocytes % (Manual) Nucleated RBC % Seg Neutrophils # Man Lymphocytes # (Manual) D-Dimer POC ABG pCO2 POC ABG pO2 ABG Oxyhemoglobin ABG Potassium ABG Glucose Sodium Potassium Chloride Carbon Dioxide BUN 64 H Creatinine 2.0 H Glucose 227 H POC Glucose 188 H Hemoglobin A1c Calcium Ferritin AST ALT Lactate Dehydrogenase Troponin T C-Reactive Protein NT-Pro-B Natriuret Pep Albumin 3.4 L Triglycerides HDL Cholesterol PTH Intact Arterial Blood Glucose Urine WBC (Auto) Urine Creatinine Urine Total Protein Coronavirus (PCR) 12/23/20 12/23/20 12/23/20 00:40 00:40 05:15 WBC RBC Hgb Hct Seg Neuts % (Manual) Lymphocytes % (Manual) Nucleated RBC % Seg Neutrophils # Man Lymphocytes # (Manual) D-Dimer POC ABG pCO2 POC ABG pO2 ABG Oxyhemoglobin ABG Potassium ABG Glucose Sodium Potassium 5.6 H Chloride Carbon Dioxide BUN 71 H Creatinine 1.8 H Glucose 225 H POC Glucose Hemoglobin A1c Calcium Ferritin AST 46 H ALT 83 H Lactate Dehydrogenase Troponin T C-Reactive Protein NT-Pro-B Natriuret Pep Albumin 3.6 L Triglycerides HDL Cholesterol PTH Intact Arterial Blood Glucose Urine WBC (Auto) 8.0 H Urine Creatinine 134.1 H Urine Total Protein 50 H Coronavirus (PCR) 12/23/20 12/23/20 12/23/20 05:15 05:15 11:47 WBC RBC Hgb Hct Seg Neuts % (Manual) Lymphocytes % (Manual) Nucleated RBC % Seg Neutrophils # Man Lymphocytes # (Manual) D-Dimer POC ABG pCO2 POC ABG pO2 ABG Oxyhemoglobin ABG Potassium ABG Glucose Sodium Potassium Chloride Carbon Dioxide BUN Creatinine Glucose POC Glucose 257 H Hemoglobin A1c 7.2 H Calcium Ferritin AST ALT Lactate Dehydrogenase Troponin T C-Reactive Protein NT-Pro-B Natriuret Pep Albumin Triglycerides HDL Cholesterol PTH Intact 109.4 H Arterial Blood Glucose Urine WBC (Auto) Urine Creatinine Urine Total Protein Coronavirus (PCR) 12/23/20 12/23/20 12/24/20 13:06 16:41 00:02 WBC RBC Hgb Hct Seg Neuts % (Manual) Lymphocytes % (Manual) Nucleated RBC % Seg Neutrophils # Man Lymphocytes # (Manual) D-Dimer POC ABG pCO2 29.6 L POC ABG pO2 57.8 L ABG Oxyhemoglobin 88.9 L ABG Potassium 4.7 H ABG Glucose 286 H Sodium Potassium Chloride Carbon Dioxide BUN Creatinine Glucose POC Glucose 199 H 213 H Hemoglobin A1c Calcium Ferritin AST ALT Lactate Dehydrogenase Troponin T C-Reactive Protein NT-Pro-B Natriuret Pep Albumin Triglycerides HDL Cholesterol PTH Intact Arterial Blood Glucose 286 H Urine WBC (Auto) Urine Creatinine Urine Total Protein Coronavirus (PCR) 12/24/20 12/24/20 12/24/20 04:56 05:17 12:03 WBC RBC Hgb Hct Seg Neuts % (Manual) Lymphocytes % (Manual) Nucleated RBC % Seg Neutrophils # Man Lymphocytes # (Manual) D-Dimer POC ABG pCO2 POC ABG pO2 ABG Oxyhemoglobin ABG Potassium ABG Glucose Sodium Potassium 5.4 H Chloride Carbon Dioxide 18 L D BUN 74 H Creatinine 1.6 H Glucose 228 H POC Glucose 204 H 218 H Hemoglobin A1c Calcium Ferritin AST 44 H ALT 105 H Lactate Dehydrogenase Troponin T C-Reactive Protein NT-Pro-B Natriuret Pep Albumin 3.5 L Triglycerides HDL Cholesterol PTH Intact Arterial Blood Glucose Urine WBC (Auto) Urine Creatinine Urine Total Protein Coronavirus (PCR) 12/24/20 12/24/20 12/25/20 17:44 22:25 04:44 WBC RBC Hgb Hct Seg Neuts % (Manual) Lymphocytes % (Manual) Nucleated RBC % Seg Neutrophils # Man Lymphocytes # (Manual) D-Dimer POC ABG pCO2 POC ABG pO2 ABG Oxyhemoglobin ABG Potassium ABG Glucose Sodium Potassium 5.5 H Chloride Carbon Dioxide BUN 58 H Creatinine Glucose 235 H POC Glucose 266 H 224 H Hemoglobin A1c Calcium Ferritin AST ALT Lactate Dehydrogenase Troponin T C-Reactive Protein NT-Pro-B Natriuret Pep Albumin Triglycerides HDL Cholesterol PTH Intact Arterial Blood Glucose Urine WBC (Auto) Urine Creatinine Urine Total Protein Coronavirus (PCR) 12/25/20 12/25/20 12/25/20 06:11 11:14 11:14 WBC RBC Hgb Hct Seg Neuts % (Manual) Lymphocytes % (Manual) Nucleated RBC % Seg Neutrophils # Man Lymphocytes # (Manual) D-Dimer 6017.45 H POC ABG pCO2 POC ABG pO2 ABG Oxyhemoglobin ABG Potassium ABG Glucose Sodium Potassium Chloride Carbon Dioxide BUN Creatinine Glucose POC Glucose 191 H Hemoglobin A1c Calcium Ferritin 1385.0 H AST ALT Lactate Dehydrogenase Troponin T C-Reactive Protein NT-Pro-B Natriuret Pep Albumin Triglycerides HDL Cholesterol PTH Intact Arterial Blood Glucose Urine WBC (Auto) Urine Creatinine Urine Total Protein Coronavirus (PCR) 12/25/20 12/25/20 12/25/20 11:38 17:00 23:31 WBC RBC Hgb Hct Seg Neuts % (Manual) Lymphocytes % (Manual) Nucleated RBC % Seg Neutrophils # Man Lymphocytes # (Manual) D-Dimer POC ABG pCO2 POC ABG pO2 ABG Oxyhemoglobin ABG Potassium ABG Glucose Sodium Potassium Chloride Carbon Dioxide BUN Creatinine Glucose POC Glucose 213 H 327 H 307 H Hemoglobin A1c Calcium Ferritin AST ALT Lactate Dehydrogenase Troponin T C-Reactive Protein NT-Pro-B Natriuret Pep Albumin Triglycerides HDL Cholesterol PTH Intact Arterial Blood Glucose Urine WBC (Auto) Urine Creatinine Urine Total Protein Coronavirus (PCR) 12/26/20 12/26/20 12/26/20 04:23 05:32 11:50 WBC RBC Hgb Hct Seg Neuts % (Manual) Lymphocytes % (Manual) Nucleated RBC % Seg Neutrophils # Man Lymphocytes # (Manual) D-Dimer POC ABG pCO2 POC ABG pO2 ABG Oxyhemoglobin ABG Potassium ABG Glucose Sodium 146 H Potassium Chloride Carbon Dioxide BUN 49 H Creatinine Glucose 257 H POC Glucose 265 H 231 H Hemoglobin A1c Calcium Ferritin AST ALT Lactate Dehydrogenase Troponin T C-Reactive Protein NT-Pro-B Natriuret Pep Albumin Triglycerides HDL Cholesterol PTH Intact Arterial Blood Glucose Urine WBC (Auto) Urine Creatinine Urine Total Protein Coronavirus (PCR) 12/26/20 12/26/20 12/27/20 17:17 23:37 04:46 WBC RBC Hgb Hct Seg Neuts % (Manual) Lymphocytes % (Manual) Nucleated RBC % Seg Neutrophils # Man Lymphocytes # (Manual) D-Dimer POC ABG pCO2 POC ABG pO2 ABG Oxyhemoglobin ABG Potassium ABG Glucose Sodium Potassium Chloride Carbon Dioxide BUN 53 H Creatinine Glucose 242 H POC Glucose 308 H 256 H Hemoglobin A1c Calcium Ferritin AST ALT 80 H Lactate Dehydrogenase Troponin T C-Reactive Protein NT-Pro-B Natriuret Pep Albumin 3.0 L Triglycerides HDL Cholesterol PTH Intact Arterial Blood Glucose Urine WBC (Auto) Urine Creatinine Urine Total Protein Coronavirus (PCR) 12/27/20 12/27/20 04:46 05:58 WBC 21.2 H RBC 5.17 H Hgb Hct Seg Neuts % (Manual) Lymphocytes % (Manual) Nucleated RBC % Seg Neutrophils # Man Lymphocytes # (Manual) D-Dimer POC ABG pCO2 POC ABG pO2 ABG Oxyhemoglobin ABG Potassium ABG Glucose Sodium Potassium Chloride Carbon Dioxide BUN Creatinine Glucose POC Glucose 178 H Hemoglobin A1c Calcium Ferritin AST ALT Lactate Dehydrogenase Troponin T C-Reactive Protein NT-Pro-B Natriuret Pep Albumin Triglycerides HDL Cholesterol PTH Intact Arterial Blood Glucose Urine WBC (Auto) Urine Creatinine Urine Total Protein Coronavirus (PCR) Allied health notes reviewed: nursing
[2020-12-27] MEDS: CHOLECALCIFEROL (VIT D3) 1000 UNIT (25 mcg) TAB PO SCH (10:38)
[2020-12-27] MEDS: METOPROLOL TARTRATE 50 MG TAB PO SCH ×2 (10:38→21:07)
[2020-12-27] MEDS: ZINC SULFATE 220 MG CAP PO SCH ×2 (10:38→21:07)
[2020-12-27] MEDS: ASCORBIC ACID 500 MG TAB PO SCH ×2 (10:38→21:07)
[2020-12-27] MEDS: ENOXAPARIN 150 MG/1 ML INJ SUB-Q SCH ×2 (10:40→21:06)
--- NOTE | 2020-12-27 11:21 | Electrocardiograph Report ---
[facility] Test Date: 2020-12-25 Test Time: 17:04:51 Pat Name: TANIA DREW Department: Room: A265 1 Gender: M Protection Manager: [id number] : 1970 Requested By: TONO CEBALLOS Order Number: [id number] Reading MD: Debra Bah Measurements Intervals [place] Rate: 149 P: OR: QRS: -8 QRSD: 91 T: 27 QT: 299 QTc: 473 Interpretive Statements ATRIAL FIBRILLATION WITH RAPID V-RATE Compared to ECG 12/20/2020 14:54:03 Atrial fibrillation has replaced sinus rhythm Electronically Signed On 12-27-2020 11:20:36 EDT by Debra Bah
--- NOTE | 2020-12-27 11:26 | Progress Note ---
Assessment and Plan Assessment and plan: 50 YO Male with HTN, CHF, Obesity Hypoventilation Syndrome, Medication Noncompliance, Coronivirus Infection Diagnosed 1week ago presents to ED for evaluation. Patient reports "I cannot breathe". Patient states that he has experienced fatigue, shortness of breath, dry cough, decreased exercise toleranc e, diminished sense of smell, diminished sense of taste over the past 1 week with persistent and worsening symptoms over the same timeframe. Patient is currently incarcerated and was seen by medical staff at the [facility] and was found to have a pulse oximetry in the 60s this a.m. EMS was notified and upon arrival the patient was found to be in respiratory distress and placed on supplemental oxygen via nonrebreather mask and subsequently transported to [facility] for further care and evaluation of the aforementioned symptoms. The patient was seen and evaluated in the emergency department. All lab and imaging studies reviewed. The patient was found to have a pulse oximetry of 78% on nonrebreath er mask which is consistent with acute hypoxemic respiratory failure. Chest x- ray revealed bilateral pneumonia. The patient was admitted to medical floor and initiated on pneumonia protocol as well as coronavirus protocol. The patient was placed on high flow supplemental oxygen in the emergency department. Patient denies fever, chills, chest pain, palpitations, skin rash, recent ill contacts, unilateral leg swelling, calf pain, individual/family history of DVT/PE/bleeding/blood clotting disorders. No prior admission for review. No medication listed at time of admission for reconciliation. VQ scan ordered at time of admission and is currently pending. (1) Acute respiratory failure with hypoxia Current Visit: Yes Status: Acute Plan to address problem: Chest x-ray, VQ scan, high flow supplemental oxygen, pulse oximetry, will consider noninvasive positive pressure ventilation if patient is unable to maintain pulse oximetry on high flow supplemental oxygen. Pulmonary team consulted. (2) Coronavirus infection Current Visit: Yes Status: Acute Plan to address problem: Coronavirus protocol: IV steroid therapy, IV antibiotic therapy, supplemental oxygen, pulse oximetry, contact precautions, isolation precautions, vitamin C therapy, vitamin D therapy, zinc therapy, prophylactic anticoagulation. (3) Obesity hypoventilation syndrome Current Visit: Yes Status: Acute Plan to address problem: Balanced diet, increase physical activity discharge, outpatient pulmonary follow-up for sleep study. (4) Pneumonia Current Visit: Yes Status: Acute Plan to address problem: Pneumonia protocol: Chest x-ray, CBC, CMP, supplemental oxygen, pulse oximetry, nebulizer therapy, blood culture. (5) Stable congestive heart failure (6) Acute kidney failure with vasomotor nephropathy (7) bilateral DVT (8) DVT prophylaxis Current Visit: Yes Status: Acute Plan to address problem: SCDs bilateral lower extremities while in bed, on anticoagulation (9) Advance care planning Current Visit: Yes Status: Acute Plan to address problem: Disease education conducted, care plan discussed, diagnoses discussed, prognosis discussed, patient counseled regarding coronavirus vaccination within 90 days of discharge. The high probability of a clinically significant, sudden or life threatening deterioration of the [CVS, renal, vascular, respiratory, ID ] system(s) required my full and direct attention, intervention and personal management. The aggregate critical care time was [45] minutes. This time is in addition to time spent performing reported procedures but includes the following: [x] Data Review and interpretation [x] Patient assessment and monitoring of vital signs [x] Documentation [x] Medication orders and management 12/21: Continue supportive care, wean oxygen as tolerated, Pulmonary, Nephrology, ID input. Renal improving. Continue steroids, defer Remedesivir to the ID. CPAP at night due to CARINA 12/22: Patient remains persistently hypoxic, going to be moving the patient down to the IMCU as he is satting 86% on nonrebreather and also high flow. Prognosis very poor. 12/23: : Continue IMCU. Continue reinforcement for the patient management plan. Continue steroids and remdesivir. Monitor blood sugar closely. Poor prognosis 12/24: Extensive discussion about the patient to be compliant with management plan. Noted hyperkalemia Kayexalate ordered already for the patient. 12/25: Patient remains with poor prognosis hyperkalemia persisted despite improving renal function. Follow-up Kayexalate has been given this morning. Blood sugar still elevated this could be steroid-induced versus underlying diabetes we will check an A1c and in the meantime we will add Lantus at nighttime for better coverage. 12/26: Patient seen and examined remains profoundly hypoxic. Blood sugar still controlled at this time. He did report a fall yesterday but denied any head trauma CT of the head reviewed negative. Counseling provided on compliance. He also has profound bilateral DVT patient is on full dose anticoagulation while is not clear if this developed here on anticoagulation it most likely has been present prior to presentation. Nevertheless we will consult vascular to further evaluate. Electrolytes appear to have been repleted we will recheck labs in a.m. due to profound leukocytosis. 12/27; severely hypoxemic on 40 L high flow nasal cannula oxygen 100% FiO2 Wean as tolerated, poor prognosis History Interval history: I have seen and examined the patient in IMCU this morning Isolation precautions and PPE protocol strictly followed Patient is severely hypoxemic remains on high flow nasal cannula oxygen 40 L/100%/90% O2 sats In mild distress Hospitalist Physical - Constitutional Vitals: Temp Pulse Resp BP Pulse Ox 97.7 F 98 H 39 H 152/83 90 12/27/20 08:00 12/27/20 10:38 12/27/20 07:00 12/27/20 10:38 12/27/20 08:41 General appearance: Present: no acute distress, well-nourished, obese (Morbidly obese) - EENT Eyes: Present: PERRL, EOM intact - Neck Neck: Present: supple, normal ROM - Respiratory Respiratory effort: normal Respiratory: bilateral: diminished, rhonchi, negative: rales, wheezing - Cardiovascular Rhythm: regular Heart Sounds: Present: S1 & S2 - Extremities Extremities: no ischemia, No edema - Abdominal General gastrointestinal: soft, non-tender, non-distended, normal bowel sounds - Integumentary Integumentary: Present: clear, warm - Psychiatric Psychiatric: appropriate mood/affect, cooperative - Neurologic Neurologic: CNII-XII intact, moves all extremities HEART Score - HEART Score Troponin: Troponin T < 0.010 ng/mL (0.00-0.029) 12/21/20 18:26 Results - Labs CBC & Chem 7: 12/27/20 04:46 12/27/20 04:46 Labs: Laboratory Last Values WBC 21.2 K/mm3 (4.5-11.0) H 12/27/20 04:46 RBC 5.17 M/mm3 (3.65-5.03) H 12/27/20 04:46 Hgb 14.3 gm/dl (11.8-15.2) 12/27/20 04:46 Hct 44.8 % (35.5-45.6) 12/27/20 04:46 MCV 87 fl (84-94) 12/27/20 04:46 MCH 28 pg (28-32) 12/27/20 04:46 MCHC 32 % (32-34) 12/27/20 04:46 RDW 14.5 % (13.2-15.2) 12/27/20 04:46 Plt Count 185 K/mm3 (140-440) 12/27/20 04:46 Add Manual Diff Complete 12/21/20 06:10 Total Counted 100 12/21/20 06:10 Seg Neuts % (Manual) 89.0 % (40.0-70.0) H 12/21/20 06:10 Band Neutrophils % 3.0 % 12/21/20 06:10 Lymphocytes % (Manual) 5.0 % (13.4-35.0) L 12/20/20 11:31 Reactive Lymphs % (Man) 2.0 % 12/21/20 06:10 Monocytes % (Manual) 1.0 % (0.0-7.3) 12/21/20 06:10 Myelocytes % 4.0 % 12/21/20 06:10 Blast Cells % 1.0 % 12/21/20 06:10 Nucleated RBC % 1.0 % (0.0-0.9) H 12/21/20 06:10 Seg Neutrophils # Man 17.9 K/mm3 (1.8-7.7) H 12/21/20 06:10 Band Neutrophils # 0.6 K/mm3 12/21/20 06:10 Lymphocytes # (Manual) 0.0 K/mm3 (1.2-5.4) L 12/21/20 06:10 Abs React Lymphs (Man) 0.4 K/mm3 12/21/20 06:10 Monocytes # (Manual) 0.2 K/mm3 (0.0-0.8) 12/21/20 06:10 Eosinophils # (Manual) 0.0 K/mm3 (0.0-0.4) 12/21/20 06:10 Basophils # (Manual) 0.0 K/mm3 (0.0-0.1) 12/21/20 06:10 Metamyelocytes # 0.0 K/mm3 12/21/20 06:10 Myelocytes # 0.8 K/mm3 12/21/20 06:10 Promyelocytes # 0.0 K/mm3 12/21/20 06:10 Blast Cells # 0.1 K/mm3 12/21/20 06:10 WBC Morphology Not Reportable 12/21/20 06:10 Hypersegmented Neuts Not Reportable 12/21/20 06:10 Hyposegmented Neuts Not Reportable 12/21/20 06:10 Hypogranular Neuts Not Reportable 12/21/20 06:10 Smudge Cells Not Reportable 12/21/20 06:10 Toxic Granulation Not Reportable 12/21/20 06:10 Toxic Vacuolation Not Reportable 12/21/20 06:10 Dohle Bodies Not Reportable 12/21/20 06:10 Pelger-Huet Anomaly Not Reportable 12/21/20 06:10 Chantel Rods Not Reportable 12/21/20 06:10 Platelet Estimate Consistent w auto 12/21/20 06:10 Clumped Platelets Not Reportable 12/21/20 06:10 Plt Clumps, EDTA Not Reportable 12/21/20 06:10 Large Platelets Not Reportable 12/21/20 06:10 Giant Platelets Not Reportable 12/21/20 06:10 Platelet Satelliting Not Reportable 12/21/20 06:10 Plt Morphology Comment Not Reportable 12/21/20 06:10 RBC Morphology Not Reportable 12/21/20 06:10 Dimorphic RBCs Not Reportable 12/21/20 06:10 Polychromasia Not Reportable 12/21/20 06:10 Hypochromasia Not Reportable 12/21/20 06:10 Poikilocytosis Not Reportable 12/21/20 06:10 Anisocytosis Not Reportable 12/21/20 06:10 Microcytosis Not Reportable 12/21/20 06:10 Macrocytosis Not Reportable 12/21/20 06:10 Spherocytes Rare 12/21/20 06:10 Pappenheimer Bodies Not Reportable 12/21/20 06:10 Sickle Cells Not Reportable 12/21/20 06:10 Target Cells Rare 12/21/20 06:10 Tear Drop Cells Not Reportable 12/21/20 06:10 Ovalocytes Not Reportable 12/21/20 06:10 Helmet Cells Not Reportable 12/21/20 06:10 [employer] Bodies Not Reportable 12/21/20 06:10 [place] Rings Not Reportable 12/21/20 06:10 [place] Cells Not Reportable 12/21/20 06:10 Bite Cells Not Reportable 12/21/20 06:10 Crenated Cell Not Reportable 12/21/20 06:10 Elliptocytes Not Reportable 12/21/20 06:10 Acanthocytes (Spur) Not Reportable 12/21/20 06:10 Rouleaux Not Reportable 12/21/20 06:10 Hemoglobin C Crystals Not Reportable 12/21/20 06:10 Schistocytes Not Reportable 12/21/20 06:10 Malaria parasites Not Reportable 12/21/20 06:10 Andrew Bodies Not Reportable 12/21/20 06:10 Hem Pathologist Commnt No 12/21/20 06:10 D-Dimer 6017.45 ng/mlDDU (0-234) H 12/25/20 11:14 ABG pH 7.446 (7.320-7.450) 12/23/20 13:06 POC ABG pCO2 29.6 mmHg (32.0-48.0) L 12/23/20 13:06 POC ABG pO2 57.8 mmHg (83-108) L 12/23/20 13:06 POC ABG HCO3 19.9 12/23/20 13:06 ABG O2 Saturation 89.8 (0-100) 12/23/20 13:06 POC ABG Base Excess -2.8 12/23/20 13:06 ABG Hemoglobin 15.3 (12.0-17.5) 12/23/20 13:06 ABG Oxyhemoglobin 88.9 (94-98) L 12/23/20 13:06 ABG Methemoglobin 0.3 (0.0-1.5) 12/23/20 13:06 ABG Sodium 140.6 mmol/L (136.0-145.0) 12/23/20 13:06 ABG Potassium 4.7 mmol/L (3.40-4.50) H 12/23/20 13:06 ABG Chloride 107.0 mmol/L (98-107) 12/23/20 13:06 ABG Glucose 286 mg/dL (65-95) H 12/23/20 13:06 Carboxyhemoglobin 0.7 (0.5-1.5) 12/23/20 13:06 FiO2 % 80.0 12/23/20 13:06 Sodium 143 mmol/L (137-145) 12/27/20 04:46 Potassium 4.3 mmol/L (3.6-5.0) 12/27/20 04:46 Chloride 104.8 mmol/L (98-107) 12/27/20 04:46 Carbon Dioxide 26 mmol/L (22-30) 12/27/20 04:46 Anion Gap 17 mmol/L 12/27/20 04:46 BUN 53 mg/dL (9-20) H 12/27/20 04:46 Creatinine 1.1 mg/dL (0.8-1.3) 12/27/20 04:46 Estimated GFR > 60 ml/min 12/27/20 04:46 BUN/Creatinine Ratio 48 % 12/27/20 04:46 Glucose 242 mg/dL (75-100) H 12/27/20 04:46 POC Glucose 178 mg/dL (70-105) H 12/27/20 05:58 Hemoglobin A1c 7.2 % (4-6) H 12/23/20 05:15 Calcium 8.4 mg/dL (8.4-10.2) 12/27/20 04:46 Ferritin 1385.0 ng/mL (30.0-300.0) H 12/25/20 11:14 Total Bilirubin 1.00 mg/dL (0.1-1.2) 12/27/20 04:46 AST 26 units/L (5-40) 12/27/20 04:46 ALT 80 units/L (7-56) H 12/27/20 04:46 Alkaline Phosphatase 52 units/L (35-129) 12/27/20 04:46 Lactate Dehydrogenase 10 units/L (91-180) L 12/20/20 11:31 Troponin T < 0.010 ng/mL (0.00-0.029) 12/21/20 18:26 C-Reactive Protein 0.60 mg/dL (0.00-1.30) 12/25/20 11:14 NT-Pro-B Natriuret Pep 6191 pg/mL (0-900) H 12/21/20 14:32 Total Protein 6.4 g/dL (6.3-8.2) 12/27/20 04:46 Albumin 3.0 g/dL (3.9-5) L 12/27/20 04:46 Albumin/Globulin Ratio 0.9 % 12/27/20 04:46 Triglycerides 226 mg/dL (2-149) H 12/20/20 11:31 Cholesterol 175 mg/dL (50-199) 12/20/20 11:31 LDL Cholesterol Direct 98 mg/dL (50-130) 12/20/20 11:31 HDL Cholesterol 31 mg/dL (40-59) L 12/20/20 11:31 Cholesterol/HDL Ratio 5.64 % 12/20/20 11:31 Procalcitonin 1.45 ng/mL (<0.15) 12/20/20 11:31 PTH Intact 109.4 pg/mL (15-65) H 12/23/20 05:15 Arterial Blood Glucose 286 mg/dL (65-95) H 12/23/20 13:06 Urine Color Straw (Yellow) 12/23/20 00:40 Urine Turbidity Clear (Clear) 12/23/20 00:40 Urine pH 5.0 (5.0-7.0) 12/23/20 00:40 Ur Specific [place] 1.030 (1.003-1.030) 12/23/20 00:40 Urine Protein 30 mg/dl mg/dL (Negative) 12/23/20 00:40 Urine Glucose (UA) Negative mg/dL (Negative) 12/23/20 00:40 Urine Ketones Negative mg/dL (Negative) 12/23/20 00:40 Urine Blood Negative (Negative) 12/23/20 00:40 Urine Nitrite Negative (Negative) 12/23/20 00:40 Ur Reducing Substances Not Reportable 12/23/20 00:40 Urine Bilirubin Negative (Negative) 12/23/20 00:40 Urine Ictotest Not Reportable 12/23/20 00:40 Urine Urobilinogen < 2.0 mg/dL (<2.0) 12/23/20 00:40 Ur Leukocyte Esterase Negative (Negative) 12/23/20 00:40 Urine WBC (Auto) 8.0 /HPF (0.0-6.0) H 12/23/20 00:40 Urine RBC (Auto) 1.0 /HPF (0.0-6.0) 12/23/20 00:40 U Epithel Cells (Auto) < 1.0 /HPF (0-13.0) 12/23/20 00:40 Hyaline Casts 1 /LPF 12/23/20 00:40 Urine Mucus Few /HPF 12/23/20 00:40 Urine Eosinophils None seen (None Seen) 12/23/20 00:40 Urine Creatinine 134.1 mg/dL (0.1-20.0) H 12/23/20 00:40 Protein/Creatinin Ratio 0.37 12/23/20 00:40 Urine Sodium 26 mmol/L 12/23/20 00:40 Urine Total Protein 50 mg/dL (5-11.8) H 12/23/20 00:40 Coronavirus (PCR) Positive (Negative) A 12/21/20 Unknown Murray/IV: Voiding Method Urinal Active Medications - Current Medications Current Medications: Generic Name Dose Route Start Last Admin Trade Name Freq PRN Reason Stop Dose Admin Acetaminophen 650 mg 12/20/20 12:52 Acetaminophen 325 Mg Tab PO Q4H PRN Pain MILD(1-3)/Fever >100.5/KWON Ascorbic Acid 500 mg 12/20/20 22:00 12/27/20 10:38 Ascorbic Acid 500 Mg Tab PO 500 mg BID GUSTAVO Administration Cholecalciferol 1,000 unit 12/21/20 10:00 12/27/20 10:38 Cholecalciferol (Vit D3) 1000 Unit (25 Mcg) Tab PO 1,000 unit QDAY GUSTAVO Administration Enoxaparin Sodium 150 mg 12/21/20 22:00 12/27/20 10:40 Enoxaparin 150 Mg/1 Ml Inj SUB-Q 150 mg Q12HR GUSTAVO Administration Hydralazine HCl 10 mg 12/22/20 17:56 12/22/20 19:01 Hydralazine 20 Mg/1 Ml Inj IV 10 mg Q6H PRN Administration Hypertension Hydromorphone HCl 0.5 mg 12/20/20 12:52 Hydromorphone 1 Mg/1 Ml Inj IV Q23H PRN Pain , Severe (7-10) Diltiazem HCl 100 mg in 100 mls @ 5 mls/hr 12/25/20 18:55 12/27/20 06:12 Cardizem/D5w 100mg/100ml IV 0 mg/hr TITR GUSTAVO 0 mls/hr Titration Protocol 5 MG/HR Insulin Glargine 20 units 12/25/20 22:00 12/26/20 22:56 Insulin Glargine 100 Units/Ml SUB-Q 20 units QHS GUSTAVO Administration Insulin Human Lispro 0 unit 12/23/20 12:00 12/27/20 06:11 Insulin Lispro 100 Unit/Ml SUB-Q 3 unit Q6HR GUSTAVO Administration Protocol Methylprednisolone Sodium Succinate 80 mg 12/21/20 12:00 12/27/20 06:11 Methylprednisolone Sod Succinate 125 Mg/2 Ml Inj IV 12/31/20 06:01 80 mg Q8HR GUSTAVO Administration Metoprolol Tartrate 50 mg 12/21/20 16:00 12/27/20 10:38 Metoprolol Tartrate 50 Mg Tab PO 50 mg BID GUSTAVO Administration Ondansetron HCl 4 mg 12/20/20 12:52 Ondansetron 4 Mg/2 Ml Inj IV Q8H PRN Nausea And Vomiting Oxycodone/Acetaminophen 1 tab 12/20/20 12:52 12/22/20 22:12 Oxycodone /Acetaminophen 5-325mg Tab PO 1 tab Q12H PRN Administration Pain, Moderate (4-6) Sodium Chloride 10 ml 12/20/20 22:00 12/27/20 10:38 Sodium Chloride 0.9% 10 Ml Flush Syringe IV 10 ml BID GUSTAVO Administration Sodium Chloride 10 ml 12/20/20 12:52 Sodium Chloride 0.9% 10 Ml Flush Syringe IV PRN PRN LINE FLUSH Zinc Sulfate 220 mg 12/20/20 22:00 12/27/20 10:38 Zinc Sulfate 220 Mg Cap PO 220 mg BID GUSTAVO Administration Nutrition/Malnutrition Assess - Dietary Evaluation Nutrition/Malnutrition Findings: Nutrition Notes Start: 12/27/20 08:30 Freq: Status: Active Protocol: Document 12/27/20 08:30 GB (Rec: 12/27/20 08:48 GB [id number]) Nutrition Notes Need for Assessment generated from: LOS Initial or Follow up Assessment Current Diagnosis Respiratory Failure Other Pertinent Diagnosis COVID19+ Current Diet Cardiac Labs/Tests 12/27: BUN 53, glucose 242, ALT 80 Pertinent Medications Vitamin C, Vit D3, NaCl, Zn Sulfate, Height 6 ft 3 in Weight 162 kg [place] Body Weight (kg) 89.09 BMI 44.6 Intake Prior to Admission Good Weight change and time frame No reported weight changes Weight Status Morbidly Obese Subjective/Other Information Last BM 12/25 PO intake improved from fair to well per RN notes Percent of energy/protein needs met: 100% with po intake 75% or greater daily Burn Absent Trauma Absent GI Symptoms None Food Allergy No Skin Integrity/Comment No reported complications Current % PO Good (75-100%) Minimum of two criteria No #1 Nutrition Diagnosis No nutrition diagnosis at this time Etiology COVID10+ As Evidenced by Signs and Symptoms Medication regime, reported diagnosis Is patient on ventilator? No Is Patient Ambulatory and/or Out of Bed No REE-([place]-confined to bed) 3081.612 Kcal/Kg value to use for calculation 15 Approximate Energy Requirements Using 2430 kcal/Kg Calculation Used for Recommendations Kcal/kg Additional Notes Protein: 0.6-0.8 g/kg @ 162k-129g Fluids: 1 ml/kcal or per MD Nutrition Intervention Change Diet Order: continue Nutrition Support: n/a Add Supplement/Snack (indicate name/kcal n/a /protein ) Goal #1 PO intake of meals to maintain at 75% or greater daily for LOS Goal #2 Weight to maintain within -3% current weight for LOS Follow-Up By: 01/03/21 Additional Comments f/u: po intake, weight
--- NOTE | 2020-12-27 13:22 | Progress Note ---
Assessment and Plan Cultures: SARS CoV2 PCR: positive A/P: 50/M with HTN, CHF, non-compliance, currently incarcerated admitted to the hospital with: #Sepsis, secondary to bilateral pneumonia due to COVID-19: severe disease. Admission labs: procalcitonin 1.45, D-dimer >10,000, CRP 5.2. CRP down to 1.1. #Acute hypoxic respiratory failure: on BiPAP-->HFNC 100%40L. #NAVJOT: Improving/Renally dose antibiotics. #Morbid obesity #Bilateral DVTs: Anticoagulation per primary Recs: Completed Remdesivir. Continue empiric antibiotics x 5 days Continue on steroids x 10 days Does not meet hospital criteria for Actemra based on CRP G. Farzana Bergeron MD [facility] O: [phone] F: [phone] Subjective Date of service: 12/27/20 Principal diagnosis: COVID-19 PNA Interval history: Afebrile, white count 21.2. Currently on high flow nasal cannula. Objective - Exam Narrative Exam: Physical exam deferred to reduce risk of transmission of COVID-19. Please refer to primary team's note. - Constitutional Vitals: Vital Signs Temp Pulse Resp BP Pulse Ox 98.4 F 95 H 24 150/75 93 12/27/20 12:00 12/27/20 12:30 12/27/20 12:30 12/27/20 12:30 12/27/20 12:52 Temperature -Last 24 Hours Temperature 98.4 F Temperature 97.7 F Temperature 98.2 F Temperature 98.8 F Temperature 98.6 F Temperature 98.5 F - Labs CBC & Chem 7: 12/27/20 04:46 12/27/20 04:46 Labs: Abnormal lab results 12/26/20 12/26/20 12/27/20 Range/Units 17:17 23:37 04:46 WBC (4.5-11.0) K/mm3 RBC (3.65-5.03) M/mm3 BUN 53 H (9-20) mg/dL Glucose 242 H (75-100) mg/dL POC Glucose 308 H 256 H (70-105) mg/dL ALT 80 H (7-56) units/L Albumin 3.0 L (3.9-5) g/dL 12/27/20 12/27/20 12/27/20 Range/Units 04:46 05:58 11:47 WBC 21.2 H (4.5-11.0) K/mm3 RBC 5.17 H (3.65-5.03) M/mm3 BUN (9-20) mg/dL Glucose (75-100) mg/dL POC Glucose 178 H 184 H (70-105) mg/dL ALT (7-56) units/L Albumin (3.9-5) g/dL
--- NOTE | 2020-12-27 13:36 | Event Note ---
Date: 12/27/20 Reviewed ultrasounds of the lower extremities demonstrating bilateral popliteal vein and infrapopliteal venous thrombus. The thrombus is age-indeterminate. Given the active Covid infection which can promote thrombus formation, recommend anticoagulation for 3 months. Suggest Eliquis or Xarelto. Patient can follow- up with vascular afterwards for management. If thrombus does not completely resolve, may require some form of low intensity anticoagulation for life to prevent rethrombosis (low-dose Eliquis or low-dose Xarelto).
[2020-12-27] MEDS: INSULIN GLARGINE 100 UNITS/ML SUB-Q SCH (21:00)
[2020-12-28] MEDS: INSULIN LISPRO 100 UNIT/ML SUB-Q SCH ×5 (00:12→22:15)
[2020-12-28 05:39] LABS: BUN/Creatinine Ratio 52; Blood Urea Nitrogen 52 mg/dL (9-20); Calcium 7.9 mg/dL (8.4-10.2); Hemolysis Index 233
[2020-12-28] MEDS: methylPREDNISolone Sod Succinate 125 MG/2 ML INJ IV SCH ×3 (06:31→22:16)
[2020-12-28] MEDS: METOPROLOL TARTRATE 50 MG TAB PO SCH ×2 (09:52→22:14)
[2020-12-28] MEDS: CHOLECALCIFEROL (VIT D3) 1000 UNIT (25 mcg) TAB PO SCH (09:53)
[2020-12-28] MEDS: ASCORBIC ACID 500 MG TAB PO SCH ×2 (09:53→22:14)
[2020-12-28] MEDS: ZINC SULFATE 220 MG CAP PO SCH ×2 (09:53→21:30)
[2020-12-28] MEDS: ENOXAPARIN 150 MG/1 ML INJ SUB-Q SCH (09:54)
--- NOTE | 2020-12-28 10:51 | Progress Note ---
Assessment and Plan 1. Acute kidney injury: NAVJOT in the setting of Covid-19 infection and sepsis. Suspect ATN. Low FeNa. Renal US negative. Monitor renal function. Creatinine level is improving. Avoid nephrotoxic agents. Meds dosage based on GFR. 2. FEN: Hyperkalemia, [place], monitor. Monitor lytes and volume status. 3. Acute hypoxic resp failure, POA: 2/ Covid-19 PNA. Test positive for Covid-19. Per pt he received J&J vaccine in Mar 2020. On HFNC O2 and NRB. Followed by Pulmonary. 4. Covid-19 PNA, POA: Test positive for Covid-19. Per pt he received J&J vaccine in Mar 2020. On Solumedrol. S/p Remdesivir. Monitor. 5. Sepsis, POA: 04/26 Covid-19 pneumonia. Followed by ID. 6. HTN: Monitor BP. Adjust meds as needed. 7. DM / Elevated bl glu: A1C 7.2. Monitor. Subjective: Patient was seen and examined at the bedside. Examination: General appearance: well-developed, appears stated age, obese, on HFNC O2 and NRB HEENT: atraumatic Neck: trachea midline Respiratory: coarse breath sounds Heart: S1S2, regular, no murmur Abdomen: soft, obese, bowel sounds heard, NT Integumentary: no rash Neurologic: alert, moving extremities Ext: no edema Subjective Date of service: 12/28/20 Principal diagnosis: COVID-19 PNA Objective - Vital Signs Vital signs: Vital Signs - 12hr 12/27/20 12/27/20 12/27/20 23:00 23:05 23:30 Temperature Pulse Rate 96 H 96 H 88 Pulse Rate [ From Monitor] Respiratory 35 H 36 H 33 H Rate Blood Pressure 159/96 159/96 157/97 O2 Sat by Pulse 97 95 96 Oximetry 12/28/20 12/28/20 12/28/20 00:00 00:30 01:00 Temperature Pulse Rate 77 85 87 Pulse Rate [ From Monitor] Respiratory 25 H 32 H 32 H Rate Blood Pressure 165/82 159/90 157/95 O2 Sat by Pulse 95 96 97 Oximetry 12/28/20 12/28/20 12/28/20 01:30 02:00 02:30 Temperature Pulse Rate 89 88 88 Pulse Rate [ From Monitor] Respiratory 39 H 22 28 H Rate Blood Pressure 166/90 169/91 173/98 O2 Sat by Pulse 95 96 94 Oximetry 12/28/20 12/28/20 12/28/20 03:00 03:30 04:00 Temperature Pulse Rate 89 91 H 93 H Pulse Rate [ From Monitor] Respiratory 32 H 39 H 40 H Rate Blood Pressure 159/97 163/95 160/92 O2 Sat by Pulse 96 95 94 Oximetry 12/28/20 12/28/20 12/28/20 04:30 05:00 05:30 Temperature Pulse Rate 91 H 104 H 92 H Pulse Rate [ From Monitor] Respiratory 29 H 42 H 27 H Rate Blood Pressure 160/88 161/105 166/94 O2 Sat by Pulse 95 94 94 Oximetry 12/28/20 12/28/20 12/28/20 06:00 06:30 07:00 Temperature Pulse Rate 89 88 92 H Pulse Rate [ From Monitor] Respiratory 35 H 27 H 25 H Rate Blood Pressure 160/90 162/83 161/89 O2 Sat by Pulse 93 95 96 Oximetry 12/28/20 12/28/20 12/28/20 07:30 08:00 08:30 Temperature 97.6 F Pulse Rate 97 H 94 H Pulse Rate [ 94 H From Monitor] Respiratory 40 H 30 H Rate Blood Pressure 154/86 141/88 O2 Sat by Pulse 93 98 95 Oximetry 12/28/20 09:52 Temperature Pulse Rate 101 H Pulse Rate [ From Monitor] Respiratory Rate Blood Pressure 123/84 O2 Sat by Pulse Oximetry - Lab 12/28/20 15:00 12/29/20 04:39 Most recent lab results ABG pH 7.446 (7.320-7.450) 12/23/20 13:06 ABG O2 Saturation 89.8 (0-100) 12/23/20 13:06 Calcium 7.9 mg/dL (8.4-10.2) L 12/28/20 04:29 Urine Creatinine 134.1 mg/dL (0.1-20.0) H 12/23/20 00:40 Urine Sodium 26 mmol/L 12/23/20 00:40 Urine Total Protein 50 mg/dL (5-11.8) H 12/23/20 00:40 Medications & Allergies - Medications Allergies/Adverse Reactions: Allergies No Known Allergies Allergy (Verified 12/21/20 05:36) Home Medications: Home Medications Medication Instructions Recorded Confirmed Last Taken Type Losartan [Cozaar] 50 mg PO QDAY 12/20/20 12/20/20 12/20/20 07:00 History 50 Active Medications: Generic Name Dose Route Start Last Admin Trade Name Freq PRN Reason Stop Dose Admin Acetaminophen 650 mg 12/20/20 12:52 Acetaminophen 325 Mg Tab PO Q4H PRN Pain MILD(1-3)/Fever >100.5/KWON Ascorbic Acid 500 mg 12/20/20 22:00 12/28/20 09:53 Ascorbic Acid 500 Mg Tab PO 500 mg BID GUSTAVO Administration Cholecalciferol 1,000 unit 12/21/20 10:00 12/28/20 09:53 Cholecalciferol (Vit D3) 1000 Unit (25 Mcg) Tab PO 1,000 unit QDAY GUSTAVO Administration Enoxaparin Sodium 150 mg 12/21/20 22:00 12/28/20 09:54 Enoxaparin 150 Mg/1 Ml Inj SUB-Q 150 mg Q12HR GUSTAVO Administration Hydralazine HCl 10 mg 12/22/20 17:56 12/22/20 19:01 Hydralazine 20 Mg/1 Ml Inj IV 10 mg Q6H PRN Administration Hypertension Hydromorphone HCl 0.5 mg 12/20/20 12:52 Hydromorphone 1 Mg/1 Ml Inj IV Q23H PRN Pain , Severe (7-10) Diltiazem HCl 100 mg in 100 mls @ 5 mls/hr 12/25/20 18:55 12/27/20 06:12 Cardizem/D5w 100mg/100ml IV 0 mg/hr TITR GUSTAVO 0 mls/hr Titration Protocol 5 MG/HR Insulin Glargine 20 units 12/25/20 22:00 12/27/20 21:00 Insulin Glargine 100 Units/Ml SUB-Q 20 units QHS GUSTAVO Administration Insulin Human Lispro 0 unit 12/28/20 11:30 Insulin Lispro 100 Unit/Ml SUB-Q ACHS GUSTAVO Protocol Methylprednisolone Sodium Succinate 80 mg 12/21/20 12:00 12/28/20 06:31 Methylprednisolone Sod Succinate 125 Mg/2 Ml Inj IV 12/31/20 06:01 80 mg Q8HR GUSTAVO Administration Metoprolol Tartrate 50 mg 12/21/20 16:00 12/28/20 09:52 Metoprolol Tartrate 50 Mg Tab PO 50 mg BID GUSTAVO Administration Ondansetron HCl 4 mg 12/20/20 12:52 Ondansetron 4 Mg/2 Ml Inj IV Q8H PRN Nausea And Vomiting Oxycodone/Acetaminophen 1 tab 12/20/20 12:52 12/22/20 22:12 Oxycodone /Acetaminophen 5-325mg Tab PO 1 tab Q12H PRN Administration Pain, Moderate (4-6) Sodium Chloride 10 ml 12/20/20 22:00 12/28/20 10:10 Sodium Chloride 0.9% 10 Ml Flush Syringe IV 10 ml BID GUSTAVO Administration Sodium Chloride 10 ml 12/20/20 12:52 Sodium Chloride 0.9% 10 Ml Flush Syringe IV PRN PRN LINE FLUSH Zinc Sulfate 220 mg 12/20/20 22:00 12/28/20 09:53 Zinc Sulfate 220 Mg Cap PO 220 mg BID GUSTAVO Administration
[2020-12-28] MEDS ORDERED: SODIUM POLYSTYRENE 15 GM/60 ML ORAL LIQD PR ONE (10:52)
--- NOTE | 2020-12-28 12:05 | Progress Note ---
Assessment and Plan 50 y/o obese male, COVID positive admitted with acute hypoxic respiratory failure, renal failure and elevated D-Dimer 12/28/20: Reviewed IR note, appreciate their eval. Will start to wean steroids later this week. Continue anticoagulation. Prone if able. Ok with transfer back to floor as he has not required continuous bipap. Still would consider diuresis. 12/27/20: Need to remember that BNP was greater thann 6k on admit. Now has bilateral DVT's extensive. Spoke with IMS yesterday with plans to consult vascular for evaluation already on therapeutic lovenox. Prone if possible. continue steroids. Guarded prognosis. 12/26/20: Lasix has not been given lately. Will hold off today as well. Follow up renal recs. Prone patient if able. Continue steroids. Guarded prognosis. 12/23/20: Lasix 40 again today. Suggest daily therapy at least for several days to help with volume overload. This could help with oxygenation. Steroids and Remdesivir. Prone if able. BP control. Guarded prognosis. 1. Ordered stat BNP 2. Agree with Echo, follow up read as it has been done per the chart 3. Agree with steroids right now 4. Was given lasix yesterday and renal function improved. Agree with continued therapy, and follow up renal recs 5. Remdesivir ordered by ID 6. Prone as tolerated during the day and sleep prone at night 7. Guarded prognosis. Subjective Date of service: 12/28/20 Principal diagnosis: COVID-19 PNA Interval history: No acute events. Still on HFNC and NRB combo Objective Vital Signs - 12hr 12/28/20 12/28/20 12/28/20 00:00 00:30 01:00 Temperature Pulse Rate 77 85 87 Pulse Rate [ From Monitor] Respiratory 25 H 32 H 32 H Rate Blood Pressure 165/82 159/90 157/95 O2 Sat by Pulse 95 96 97 Oximetry 12/28/20 12/28/20 12/28/20 01:30 02:00 02:30 Temperature Pulse Rate 89 88 88 Pulse Rate [ From Monitor] Respiratory 39 H 22 28 H Rate Blood Pressure 166/90 169/91 173/98 O2 Sat by Pulse 95 96 94 Oximetry 12/28/20 12/28/20 12/28/20 03:00 03:30 04:00 Temperature Pulse Rate 89 91 H 93 H Pulse Rate [ From Monitor] Respiratory 32 H 39 H 40 H Rate Blood Pressure 159/97 163/95 160/92 O2 Sat by Pulse 96 95 94 Oximetry 12/28/20 12/28/20 12/28/20 04:30 05:00 05:30 Temperature Pulse Rate 91 H 104 H 92 H Pulse Rate [ From Monitor] Respiratory 29 H 42 H 27 H Rate Blood Pressure 160/88 161/105 166/94 O2 Sat by Pulse 95 94 94 Oximetry 12/28/20 12/28/20 12/28/20 06:00 06:30 07:00 Temperature Pulse Rate 89 88 92 H Pulse Rate [ From Monitor] Respiratory 35 H 27 H 25 H Rate Blood Pressure 160/90 162/83 161/89 O2 Sat by Pulse 93 95 96 Oximetry 12/28/20 12/28/20 12/28/20 07:30 08:00 08:30 Temperature 97.6 F Pulse Rate 97 H 94 H Pulse Rate [ 94 H From Monitor] Respiratory 40 H 30 H Rate Blood Pressure 154/86 141/88 O2 Sat by Pulse 93 98 95 Oximetry 12/28/20 09:52 Temperature Pulse Rate 101 H Pulse Rate [ From Monitor] Respiratory Rate Blood Pressure 123/84 O2 Sat by Pulse Oximetry CBC and BMP: 12/27/20 04:46 12/28/20 04:29 ABG, PT/INR, D-dimer: ABG ABG pH 7.446 (7.320-7.450) 12/23/20 13:06 POC ABG pCO2 29.6 mmHg (32.0-48.0) L 12/23/20 13:06 POC ABG pO2 57.8 mmHg (83-108) L 12/23/20 13:06 POC ABG HCO3 19.9 12/23/20 13:06 ABG O2 Saturation 89.8 (0-100) 12/23/20 13:06 PT/INR, D-dimer D-Dimer 6017.45 ng/mlDDU (0-234) H 12/25/20 11:14 Abnormal lab findings: Abnormal Labs 12/20/20 12/20/20 12/20/20 11:31 11:31 11:31 WBC 16.5 H RBC 5.27 H Hgb Hct Seg Neuts % (Manual) 90.0 H Lymphocytes % (Manual) 5.0 L Nucleated RBC % Seg Neutrophils # Man 14.9 H Lymphocytes # (Manual) 0.8 L D-Dimer > 86836 H POC ABG pCO2 POC ABG pO2 ABG Oxyhemoglobin ABG Potassium ABG Glucose Sodium 130 L Potassium Chloride 94.5 L Carbon Dioxide BUN 64 H Creatinine 2.6 H Glucose 154 H POC Glucose Hemoglobin A1c Calcium Ferritin AST ALT Lactate Dehydrogenase Troponin T C-Reactive Protein NT-Pro-B Natriuret Pep Albumin 3.5 L Triglycerides HDL Cholesterol PTH Intact Arterial Blood Glucose Urine WBC (Auto) Urine Creatinine Urine Total Protein Coronavirus (PCR) 12/20/20 12/21/20 12/21/20 11:31 06:10 06:10 WBC 20.1 H RBC 5.55 H Hgb 15.4 H Hct 47.3 H Seg Neuts % (Manual) 89.0 H Lymphocytes % (Manual) Nucleated RBC % 1.0 H Seg Neutrophils # Man 17.9 H Lymphocytes # (Manual) 0.0 L D-Dimer POC ABG pCO2 POC ABG pO2 ABG Oxyhemoglobin ABG Potassium ABG Glucose Sodium 136 L Potassium Chloride Carbon Dioxide BUN 57 H Creatinine 1.8 H Glucose 193 H POC Glucose Hemoglobin A1c Calcium Ferritin AST ALT Lactate Dehydrogenase 10 L Troponin T 0.106 H* C-Reactive Protein 5.20 H NT-Pro-B Natriuret Pep Albumin Triglycerides 226 H HDL Cholesterol 31 L PTH Intact Arterial Blood Glucose Urine WBC (Auto) Urine Creatinine Urine Total Protein Coronavirus (PCR) 12/21/20 12/21/20 12/21/20 13:29 14:32 Unknown WBC RBC Hgb Hct Seg Neuts % (Manual) Lymphocytes % (Manual) Nucleated RBC % Seg Neutrophils # Man Lymphocytes # (Manual) D-Dimer POC ABG pCO2 POC ABG pO2 ABG Oxyhemoglobin ABG Potassium ABG Glucose Sodium 134 L Potassium Chloride Carbon Dioxide BUN 57 H Creatinine 1.8 H Glucose 340 H POC Glucose Hemoglobin A1c Calcium 8.3 L Ferritin AST ALT Lactate Dehydrogenase Troponin T C-Reactive Protein NT-Pro-B Natriuret Pep 6191 H Albumin 3.3 L Triglycerides HDL Cholesterol PTH Intact Arterial Blood Glucose Urine WBC (Auto) Urine Creatinine Urine Total Protein Coronavirus (PCR) Positive A 12/22/20 12/22/20 12/22/20 05:56 05:56 17:21 WBC 26.6 H RBC 5.22 H Hgb Hct Seg Neuts % (Manual) Lymphocytes % (Manual) Nucleated RBC % Seg Neutrophils # Man Lymphocytes # (Manual) D-Dimer POC ABG pCO2 POC ABG pO2 ABG Oxyhemoglobin ABG Potassium ABG Glucose Sodium Potassium Chloride Carbon Dioxide BUN 64 H Creatinine 2.0 H Glucose 227 H POC Glucose 188 H Hemoglobin A1c Calcium Ferritin AST ALT Lactate Dehydrogenase Troponin T C-Reactive Protein NT-Pro-B Natriuret Pep Albumin 3.4 L Triglycerides HDL Cholesterol PTH Intact Arterial Blood Glucose Urine WBC (Auto) Urine Creatinine Urine Total Protein Coronavirus (PCR) 12/23/20 12/23/20 12/23/20 00:40 00:40 05:15 WBC RBC Hgb Hct Seg Neuts % (Manual) Lymphocytes % (Manual) Nucleated RBC % Seg Neutrophils # Man Lymphocytes # (Manual) D-Dimer POC ABG pCO2 POC ABG pO2 ABG Oxyhemoglobin ABG Potassium ABG Glucose Sodium Potassium 5.6 H Chloride Carbon Dioxide BUN 71 H Creatinine 1.8 H Glucose 225 H POC Glucose Hemoglobin A1c Calcium Ferritin AST 46 H ALT 83 H Lactate Dehydrogenase Troponin T C-Reactive Protein NT-Pro-B Natriuret Pep Albumin 3.6 L Triglycerides HDL Cholesterol PTH Intact Arterial Blood Glucose Urine WBC (Auto) 8.0 H Urine Creatinine 134.1 H Urine Total Protein 50 H Coronavirus (PCR) 12/23/20 12/23/20 12/23/20 05:15 05:15 11:47 WBC RBC Hgb Hct Seg Neuts % (Manual) Lymphocytes % (Manual) Nucleated RBC % Seg Neutrophils # Man Lymphocytes # (Manual) D-Dimer POC ABG pCO2 POC ABG pO2 ABG Oxyhemoglobin ABG Potassium ABG Glucose Sodium Potassium Chloride Carbon Dioxide BUN Creatinine Glucose POC Glucose 257 H Hemoglobin A1c 7.2 H Calcium Ferritin AST ALT Lactate Dehydrogenase Troponin T C-Reactive Protein NT-Pro-B Natriuret Pep Albumin Triglycerides HDL Cholesterol PTH Intact 109.4 H Arterial Blood Glucose Urine WBC (Auto) Urine Creatinine Urine Total Protein Coronavirus (PCR) 12/23/20 12/23/20 12/24/20 13:06 16:41 00:02 WBC RBC Hgb Hct Seg Neuts % (Manual) Lymphocytes % (Manual) Nucleated RBC % Seg Neutrophils # Man Lymphocytes # (Manual) D-Dimer POC ABG pCO2 29.6 L POC ABG pO2 57.8 L ABG Oxyhemoglobin 88.9 L ABG Potassium 4.7 H ABG Glucose 286 H Sodium Potassium Chloride Carbon Dioxide BUN Creatinine Glucose POC Glucose 199 H 213 H Hemoglobin A1c Calcium Ferritin AST ALT Lactate Dehydrogenase Troponin T C-Reactive Protein NT-Pro-B Natriuret Pep Albumin Triglycerides HDL Cholesterol PTH Intact Arterial Blood Glucose 286 H Urine WBC (Auto) Urine Creatinine Urine Total Protein Coronavirus (PCR) 12/24/20 12/24/20 12/24/20 04:56 05:17 12:03 WBC RBC Hgb Hct Seg Neuts % (Manual) Lymphocytes % (Manual) Nucleated RBC % Seg Neutrophils # Man Lymphocytes # (Manual) D-Dimer POC ABG pCO2 POC ABG pO2 ABG Oxyhemoglobin ABG Potassium ABG Glucose Sodium Potassium 5.4 H Chloride Carbon Dioxide 18 L D BUN 74 H Creatinine 1.6 H Glucose 228 H POC Glucose 204 H 218 H Hemoglobin A1c Calcium Ferritin AST 44 H ALT 105 H Lactate Dehydrogenase Troponin T C-Reactive Protein NT-Pro-B Natriuret Pep Albumin 3.5 L Triglycerides HDL Cholesterol PTH Intact Arterial Blood Glucose Urine WBC (Auto) Urine Creatinine Urine Total Protein Coronavirus (PCR) 12/24/20 12/24/20 12/25/20 17:44 22:25 04:44 WBC RBC Hgb Hct Seg Neuts % (Manual) Lymphocytes % (Manual) Nucleated RBC % Seg Neutrophils # Man Lymphocytes # (Manual) D-Dimer POC ABG pCO2 POC ABG pO2 ABG Oxyhemoglobin ABG Potassium ABG Glucose Sodium Potassium 5.5 H Chloride Carbon Dioxide BUN 58 H Creatinine Glucose 235 H POC Glucose 266 H 224 H Hemoglobin A1c Calcium Ferritin AST ALT Lactate Dehydrogenase Troponin T C-Reactive Protein NT-Pro-B Natriuret Pep Albumin Triglycerides HDL Cholesterol PTH Intact Arterial Blood Glucose Urine WBC (Auto) Urine Creatinine Urine Total Protein Coronavirus (PCR) 12/25/20 12/25/20 12/25/20 06:11 11:14 11:14 WBC RBC Hgb Hct Seg Neuts % (Manual) Lymphocytes % (Manual) Nucleated RBC % Seg Neutrophils # Man Lymphocytes # (Manual) D-Dimer 6017.45 H POC ABG pCO2 POC ABG pO2 ABG Oxyhemoglobin ABG Potassium ABG Glucose Sodium Potassium Chloride Carbon Dioxide BUN Creatinine Glucose POC Glucose 191 H Hemoglobin A1c Calcium Ferritin 1385.0 H AST ALT Lactate Dehydrogenase Troponin T C-Reactive Protein NT-Pro-B Natriuret Pep Albumin Triglycerides HDL Cholesterol PTH Intact Arterial Blood Glucose Urine WBC (Auto) Urine Creatinine Urine Total Protein Coronavirus (PCR) 12/25/20 12/25/20 12/25/20 11:38 17:00 23:31 WBC RBC Hgb Hct Seg Neuts % (Manual) Lymphocytes % (Manual) Nucleated RBC % Seg Neutrophils # Man Lymphocytes # (Manual) D-Dimer POC ABG pCO2 POC ABG pO2 ABG Oxyhemoglobin ABG Potassium ABG Glucose Sodium Potassium Chloride Carbon Dioxide BUN Creatinine Glucose POC Glucose 213 H 327 H 307 H Hemoglobin A1c Calcium Ferritin AST ALT Lactate Dehydrogenase Troponin T C-Reactive Protein NT-Pro-B Natriuret Pep Albumin Triglycerides HDL Cholesterol PTH Intact Arterial Blood Glucose Urine WBC (Auto) Urine Creatinine Urine Total Protein Coronavirus (PCR) 12/26/20 12/26/20 12/26/20 04:23 05:32 11:50 WBC RBC Hgb Hct Seg Neuts % (Manual) Lymphocytes % (Manual) Nucleated RBC % Seg Neutrophils # Man Lymphocytes # (Manual) D-Dimer POC ABG pCO2 POC ABG pO2 ABG Oxyhemoglobin ABG Potassium ABG Glucose Sodium 146 H Potassium Chloride Carbon Dioxide BUN 49 H Creatinine Glucose 257 H POC Glucose 265 H 231 H Hemoglobin A1c Calcium Ferritin AST ALT Lactate Dehydrogenase Troponin T C-Reactive Protein NT-Pro-B Natriuret Pep Albumin Triglycerides HDL Cholesterol PTH Intact Arterial Blood Glucose Urine WBC (Auto) Urine Creatinine Urine Total Protein Coronavirus (PCR) 12/26/20 12/26/20 12/27/20 17:17 23:37 04:46 WBC RBC Hgb Hct Seg Neuts % (Manual) Lymphocytes % (Manual) Nucleated RBC % Seg Neutrophils # Man Lymphocytes # (Manual) D-Dimer POC ABG pCO2 POC ABG pO2 ABG Oxyhemoglobin ABG Potassium ABG Glucose Sodium Potassium Chloride Carbon Dioxide BUN 53 H Creatinine Glucose 242 H POC Glucose 308 H 256 H Hemoglobin A1c Calcium Ferritin AST ALT 80 H Lactate Dehydrogenase Troponin T C-Reactive Protein NT-Pro-B Natriuret Pep Albumin 3.0 L Triglycerides HDL Cholesterol PTH Intact Arterial Blood Glucose Urine WBC (Auto) Urine Creatinine Urine Total Protein Coronavirus (PCR) 12/27/20 12/27/20 12/27/20 04:46 05:58 11:47 WBC 21.2 H RBC 5.17 H Hgb Hct Seg Neuts % (Manual) Lymphocytes % (Manual) Nucleated RBC % Seg Neutrophils # Man Lymphocytes # (Manual) D-Dimer POC ABG pCO2 POC ABG pO2 ABG Oxyhemoglobin ABG Potassium ABG Glucose Sodium Potassium Chloride Carbon Dioxide BUN Creatinine Glucose POC Glucose 178 H 184 H Hemoglobin A1c Calcium Ferritin AST ALT Lactate Dehydrogenase Troponin T C-Reactive Protein NT-Pro-B Natriuret Pep Albumin Triglycerides HDL Cholesterol PTH Intact Arterial Blood Glucose Urine WBC (Auto) Urine Creatinine Urine Total Protein Coronavirus (PCR) 12/27/20 12/27/20 12/27/20 17:14 21:34 23:55 WBC RBC Hgb Hct Seg Neuts % (Manual) Lymphocytes % (Manual) Nucleated RBC % Seg Neutrophils # Man Lymphocytes # (Manual) D-Dimer POC ABG pCO2 POC ABG pO2 ABG Oxyhemoglobin ABG Potassium ABG Glucose Sodium Potassium Chloride Carbon Dioxide BUN Creatinine Glucose POC Glucose 243 H 318 H 281 H Hemoglobin A1c Calcium Ferritin AST ALT Lactate Dehydrogenase Troponin T C-Reactive Protein NT-Pro-B Natriuret Pep Albumin Triglycerides HDL Cholesterol PTH Intact Arterial Blood Glucose Urine WBC (Auto) Urine Creatinine Urine Total Protein Coronavirus (PCR) 12/28/20 12/28/20 12/28/20 04:29 05:52 07:39 WBC RBC Hgb Hct Seg Neuts % (Manual) Lymphocytes % (Manual) Nucleated RBC % Seg Neutrophils # Man Lymphocytes # (Manual) D-Dimer POC ABG pCO2 POC ABG pO2 ABG Oxyhemoglobin ABG Potassium ABG Glucose Sodium 135 L D Potassium 5.3 H D Chloride Carbon Dioxide 18 L D BUN 52 H Creatinine Glucose 280 H POC Glucose 267 H 261 H Hemoglobin A1c Calcium 7.9 L Ferritin AST ALT Lactate Dehydrogenase Troponin T C-Reactive Protein NT-Pro-B Natriuret Pep Albumin Triglycerides HDL Cholesterol PTH Intact Arterial Blood Glucose Urine WBC (Auto) Urine Creatinine Urine Total Protein Coronavirus (PCR) Allied health notes reviewed: nursing
--- NOTE | 2020-12-28 12:34 | Progress Note ---
Assessment and Plan Assessment and plan: 50 YO Male with HTN, CHF, Obesity Hypoventilation Syndrome, Medication Noncompliance, Coronivirus Infection Diagnosed 1week ago presents to ED for evaluation. Patient reports "I cannot breathe". Patient states that he has experienced fatigue, shortness of breath, dry cough, decreased exercise tolerance, diminished sense of smell, diminished sense of taste over the past 1 week with persistent and worsening symptoms over the same timeframe. Patient is currently incarcerated and was seen by medical staff at the [facility] and was found to have a pulse oximetry in the 60s this a.m. EMS was notified and upon arrival the patient was found to be in respiratory distress and placed on supplemental oxygen via nonrebreather mask and subsequently transported to [facility] for further care and evaluation of the aforementioned symptoms. The patient was seen and evaluated in the emergency department. All lab and imaging studies reviewed. The patient was found to have a pulse oximetry of 78% on nonrebreathe r mask which is consistent with acute hypoxemic respiratory failure. Chest x- ray revealed bilateral pneumonia. Patient was admitted as PUI placed on isolation, subsequently found to have positive [place] PCR test, ID evaluated the patient, patient was managed with treatment per COVID-19 guidelines, had elevated D-dimers more than 10,000, lower extremity venous Doppler positive for bilateral DVT, started on full dose Lovenox every 12 hours, patient continues to be on high flow oxygen and BiPAP, transitioned to Eliquis today per protocol Patient is cleared by pulmonary to be transferred out of IMCU to telemetry. (1) Acute respiratory failure with hypoxia Current Visit: Yes Status: Acute Plan to address problem: currently on 40 L high flow nasal cannula oxygen, BiPAP 100% FiO2 Wean as tolerated, on high dose Solu-Medrol, pulmonary following Home O2 evaluation prior to discharge (2) Coronavirus infection Current Visit: Yes Status: Acute Plan to address problem: Continue isolation, high flow oxygen oxygen/BiPAP Completed Remdesivir. Completed empiric antibiotics 5 days Continue high-dose IV steroids x 10 days Does not meet hospital criteria for Actemra based on CRP (3) Obesity hypoventilation syndrome Current Visit: Yes Status: Acute Plan to address problem: Balanced diet, increase physical activity discharge, outpatient pulmonary follow-up for sleep study. Present on admission (4) Pneumonia Current Visit: Yes Status: Acute Plan to address problem: Pneumonia protocol: Chest x-ray, CBC, CMP, supplemental oxygen, pulse oximetry, nebulizer therapy, blood culture. (5) bilateral DVT on venous Doppler [facility] ([facility]) Acute kidney failure with vasomotor nephropathy; Present on admission. Resolved (7) morbid obesity BMI; 44.4 Patient needs weight reduction when medically stable He would benefit by bariatric surgical evaluation as outpatient For weight reduction program when he is medically stable (8) DVT prophylaxis Current Visit: Yes Status: Acute On Lovenox full dose (9) Advance care planning Current Visit: Yes Status: Acute Plan to address problem: Disease education conducted, care plan discussed, diagnoses discussed, prognosis discussed, patient counseled regarding coronavirus vaccination within 90 days of discharge. Patient is stable to be transferred out of [facility] to telemetry The high probability of a clinically significant, sudden or life threatening deterioration of the [CVS, renal, vascular, respiratory, ID ] system(s) required my full and direct attention, intervention and personal management. The aggregate critical care time was [40] minutes. This time is in addition to time spent performing reported procedures but includes the following: [x] Data Review and interpretation [x] Patient assessment and monitoring of vital signs [x] Documentation [x] Medication orders and management 12/21: Continue supportive care, wean oxygen as tolerated, Pulmonary, Nephrology, ID input. Renal improving. Continue steroids, defer Remedesivir to the ID. CPAP at night due to CARINA 12/22: Patient remains persistently hypoxic, going to be moving the patient down to the IMCU as he is satting 86% on nonrebreather and also high flow. Prognosis very poor. 12/23: : Continue IMCU. Continue reinforcement for the patient management plan. Continue steroids and remdesivir. Monitor blood sugar closely. Poor prognosis 12/24: Extensive discussion about the patient to be compliant with management plan. Noted hyperkalemia Kayexalate ordered already for the patient. 12/25: Patient remains with poor prognosis hyperkalemia persisted despite improving renal function. Follow-up Kayexalate has been given this morning. Blood sugar still elevated this could be steroid-induced versus underlying diabetes we will check an A1c and in the meantime we will add Lantus at nightt stephany for better coverage. 12/26: Patient seen and examined remains profoundly hypoxic. Blood sugar still controlled at this time. He did report a fall yesterday but denied any head trauma CT of the head reviewed negative. Counseling provided on compliance. He also has profound bilateral DVT patient is on full dose anticoagulation while is not clear if this developed here on anticoagulation it most likely has been present prior to presentation. Nevertheless we will consult vascular to further evaluate. Electrolytes appear to have been repleted we will recheck labs in a.m. due to profound leukocytosis. 12/27; severely hypoxemic on 40 L high flow nasal cannula oxygen 100% FiO2 Wean as tolerated, poor prognosis 12/28; patient remains on 40 L high flow NC oxygen and intermittent BiPAP 100% FiO2 Wean as tolerated, closely monitor Pulmonary cleared to transfer out of [facility] to telemetry We will also transition full dose anticoagulation from Lovenox to Eliquis per protocol History Interval history: I have seen and examined the patient at the bedside in [facility] this morning Isolation precautions PPE protocols followed Patient remains on high flow nasal cannula oxygen 40 L 100% FiO2 and BiPAP Patient takes off BiPAP intermittently when he desats Hospitalist Physical - Constitutional Vitals: Temp Pulse Resp BP Pulse Ox 97.6 F 101 H 30 H 123/84 95 12/28/20 08:00 12/28/20 09:52 12/28/20 08:00 12/28/20 09:52 12/28/20 08:30 General appearance: Present: no acute distress, well-nourished, obese (Morbidly obese), other (On BiPAP) - EENT Eyes: Present: PERRL, EOM intact - Neck Neck: Present: supple, normal ROM - Respiratory Respiratory effort: normal Respiratory: bilateral: diminished, rhonchi, negative: rales, wheezing - Cardiovascular Rhythm: regular Heart Sounds: Present: S1 & S2 - Extremities Extremities: no ischemia, No edema - Abdominal General gastrointestinal: soft, non-tender, non-distended, normal bowel sounds - Integumentary Integumentary: Present: clear, warm - Psychiatric Psychiatric: appropriate mood/affect, cooperative - Neurologic Neurologic: CNII-XII intact, moves all extremities HEART Score - HEART Score Troponin: Troponin T < 0.010 ng/mL (0.00-0.029) 12/21/20 18:26 Results - Labs CBC & Chem 7: 12/27/20 04:46 12/28/20 04:29 Labs: Laboratory Last Values WBC 21.2 K/mm3 (4.5-11.0) H 12/27/20 04:46 RBC 5.17 M/mm3 (3.65-5.03) H 12/27/20 04:46 Hgb 14.3 gm/dl (11.8-15.2) 12/27/20 04:46 Hct 44.8 % (35.5-45.6) 12/27/20 04:46 MCV 87 fl (84-94) 12/27/20 04:46 MCH 28 pg (28-32) 12/27/20 04:46 MCHC 32 % (32-34) 12/27/20 04:46 RDW 14.5 % (13.2-15.2) 12/27/20 04:46 Plt Count 185 K/mm3 (140-440) 12/27/20 04:46 Add Manual Diff Complete 12/21/20 06:10 Total Counted 100 12/21/20 06:10 Seg Neuts % (Manual) 89.0 % (40.0-70.0) H 12/21/20 06:10 Band Neutrophils % 3.0 % 12/21/20 06:10 Lymphocytes % (Manual) 5.0 % (13.4-35.0) L 12/20/20 11:31 Reactive Lymphs % (Man) 2.0 % 12/21/20 06:10 Monocytes % (Manual) 1.0 % (0.0-7.3) 12/21/20 06:10 Myelocytes % 4.0 % 12/21/20 06:10 Blast Cells % 1.0 % 12/21/20 06:10 Nucleated RBC % 1.0 % (0.0-0.9) H 12/21/20 06:10 Seg Neutrophils # Man 17.9 K/mm3 (1.8-7.7) H 12/21/20 06:10 Band Neutrophils # 0.6 K/mm3 12/21/20 06:10 Lymphocytes # (Manual) 0.0 K/mm3 (1.2-5.4) L 12/21/20 06:10 Abs React Lymphs (Man) 0.4 K/mm3 12/21/20 06:10 Monocytes # (Manual) 0.2 K/mm3 (0.0-0.8) 12/21/20 06:10 Eosinophils # (Manual) 0.0 K/mm3 (0.0-0.4) 12/21/20 06:10 Basophils # (Manual) 0.0 K/mm3 (0.0-0.1) 12/21/20 06:10 Metamyelocytes # 0.0 K/mm3 12/21/20 06:10 Myelocytes # 0.8 K/mm3 12/21/20 06:10 Promyelocytes # 0.0 K/mm3 12/21/20 06:10 Blast Cells # 0.1 K/mm3 12/21/20 06:10 WBC Morphology Not Reportable 12/21/20 06:10 Hypersegmented Neuts Not Reportable 12/21/20 06:10 Hyposegmented Neuts Not Reportable 12/21/20 06:10 Hypogranular Neuts Not Reportable 12/21/20 06:10 Smudge Cells Not Reportable 12/21/20 06:10 Toxic Granulation Not Reportable 12/21/20 06:10 Toxic Vacuolation Not Reportable 12/21/20 06:10 Dohle Bodies Not Reportable 12/21/20 06:10 Pelger-Huet Anomaly Not Reportable 12/21/20 06:10 Chantel Rods Not Reportable 12/21/20 06:10 Platelet Estimate Consistent w auto 12/21/20 06:10 Clumped Platelets Not Reportable 12/21/20 06:10 Plt Clumps, EDTA Not Reportable 12/21/20 06:10 Large Platelets Not Reportable 12/21/20 06:10 Giant Platelets Not Reportable 12/21/20 06:10 Platelet Satelliting Not Reportable 12/21/20 06:10 Plt Morphology Comment Not Reportable 12/21/20 06:10 RBC Morphology Not Reportable 12/21/20 06:10 Dimorphic RBCs Not Reportable 12/21/20 06:10 Polychromasia Not Reportable 12/21/20 06:10 Hypochromasia Not Reportable 12/21/20 06:10 Poikilocytosis Not Reportable 12/21/20 06:10 Anisocytosis Not Reportable 12/21/20 06:10 Microcytosis Not Reportable 12/21/20 06:10 Macrocytosis Not Reportable 12/21/20 06:10 Spherocytes Rare 12/21/20 06:10 Pappenheimer Bodies Not Reportable 12/21/20 06:10 Sickle Cells Not Reportable 12/21/20 06:10 Target Cells Rare 12/21/20 06:10 Tear Drop Cells Not Reportable 12/21/20 06:10 Ovalocytes Not Reportable 12/21/20 06:10 Helmet Cells Not Reportable 12/21/20 06:10 Torres-Lamboglia Bodies Not Reportable 12/21/20 06:10 [place] Rings Not Reportable 12/21/20 06:10 Chaparro Cells Not Reportable 12/21/20 06:10 Bite Cells Not Reportable 12/21/20 06:10 Crenated Cell Not Reportable 12/21/20 06:10 Elliptocytes Not Reportable 12/21/20 06:10 Acanthocytes (Spur) Not Reportable 12/21/20 06:10 Rouleaux Not Reportable 12/21/20 06:10 Hemoglobin C Crystals Not Reportable 12/21/20 06:10 Schistocytes Not Reportable 12/21/20 06:10 Malaria parasites Not Reportable 12/21/20 06:10 Andrew Bodies Not Reportable 12/21/20 06:10 Hem Pathologist Commnt No 12/21/20 06:10 D-Dimer 6017.45 ng/mlDDU (0-234) H 12/25/20 11:14 ABG pH 7.446 (7.320-7.450) 12/23/20 13:06 POC ABG pCO2 29.6 mmHg (32.0-48.0) L 12/23/20 13:06 POC ABG pO2 57.8 mmHg (83-108) L 12/23/20 13:06 POC ABG HCO3 19.9 12/23/20 13:06 ABG O2 Saturation 89.8 (0-100) 12/23/20 13:06 POC ABG Base Excess -2.8 12/23/20 13:06 ABG Hemoglobin 15.3 (12.0-17.5) 12/23/20 13:06 ABG Oxyhemoglobin 88.9 (94-98) L 12/23/20 13:06 ABG Methemoglobin 0.3 (0.0-1.5) 12/23/20 13:06 ABG Sodium 140.6 mmol/L (136.0-145.0) 12/23/20 13:06 ABG Potassium 4.7 mmol/L (3.40-4.50) H 12/23/20 13:06 ABG Chloride 107.0 mmol/L (98-107) 12/23/20 13:06 ABG Glucose 286 mg/dL (65-95) H 12/23/20 13:06 Carboxyhemoglobin 0.7 (0.5-1.5) 12/23/20 13:06 FiO2 % 80.0 12/23/20 13:06 Sodium 135 mmol/L (137-145) L D 12/28/20 04:29 Potassium 5.3 mmol/L (3.6-5.0) H D 12/28/20 04:29 Chloride 101.7 mmol/L (98-107) 12/28/20 04:29 Carbon Dioxide 18 mmol/L (22-30) L D 12/28/20 04:29 Anion Gap 21 mmol/L 12/28/20 04:29 BUN 52 mg/dL (9-20) H 12/28/20 04:29 Creatinine 1.0 mg/dL (0.8-1.3) 12/28/20 04:29 Estimated GFR > 60 ml/min 12/28/20 04:29 BUN/Creatinine Ratio 52 % 12/28/20 04:29 Glucose 280 mg/dL (75-100) H 12/28/20 04:29 POC Glucose 271 mg/dL (70-105) H 12/28/20 11:56 Hemoglobin A1c 7.2 % (4-6) H 12/23/20 05:15 Calcium 7.9 mg/dL (8.4-10.2) L 12/28/20 04:29 Ferritin 1385.0 ng/mL (30.0-300.0) H 12/25/20 11:14 Total Bilirubin 1.00 mg/dL (0.1-1.2) 12/27/20 04:46 AST 26 units/L (5-40) 12/27/20 04:46 ALT 80 units/L (7-56) H 12/27/20 04:46 Alkaline Phosphatase 52 units/L (35-129) 12/27/20 04:46 Lactate Dehydrogenase 10 units/L (91-180) L 12/20/20 11:31 Troponin T < 0.010 ng/mL (0.00-0.029) 12/21/20 18:26 C-Reactive Protein 0.60 mg/dL (0.00-1.30) 12/25/20 11:14 NT-Pro-B Natriuret Pep 6191 pg/mL (0-900) H 12/21/20 14:32 Total Protein 6.4 g/dL (6.3-8.2) 12/27/20 04:46 Albumin 3.0 g/dL (3.9-5) L 12/27/20 04:46 Albumin/Globulin Ratio 0.9 % 12/27/20 04:46 Triglycerides 226 mg/dL (2-149) H 12/20/20 11:31 Cholesterol 175 mg/dL (50-199) 12/20/20 11:31 LDL Cholesterol Direct 98 mg/dL (50-130) 12/20/20 11:31 HDL Cholesterol 31 mg/dL (40-59) L 12/20/20 11:31 Cholesterol/HDL Ratio 5.64 % 12/20/20 11:31 Procalcitonin 1.45 ng/mL (<0.15) 12/20/20 11:31 PTH Intact 109.4 pg/mL (15-65) H 12/23/20 05:15 Arterial Blood Glucose 286 mg/dL (65-95) H 12/23/20 13:06 Urine Color Straw (Yellow) 12/23/20 00:40 Urine Turbidity Clear (Clear) 12/23/20 00:40 Urine pH 5.0 (5.0-7.0) 12/23/20 00:40 Ur Specific [place] 1.030 (1.003-1.030) 12/23/20 00:40 Urine Protein 30 mg/dl mg/dL (Negative) 12/23/20 00:40 Urine Glucose (UA) Negative mg/dL (Negative) 12/23/20 00:40 Urine Ketones Negative mg/dL (Negative) 12/23/20 00:40 Urine Blood Negative (Negative) 12/23/20 00:40 Urine Nitrite Negative (Negative) 12/23/20 00:40 Ur Reducing Substances Not Reportable 12/23/20 00:40 Urine Bilirubin Negative (Negative) 12/23/20 00:40 Urine Ictotest Not Reportable 12/23/20 00:40 Urine Urobilinogen < 2.0 mg/dL (<2.0) 12/23/20 00:40 Ur Leukocyte Esterase Negative (Negative) 12/23/20 00:40 Urine WBC (Auto) 8.0 /HPF (0.0-6.0) H 12/23/20 00:40 Urine RBC (Auto) 1.0 /HPF (0.0-6.0) 12/23/20 00:40 U Epithel Cells (Auto) < 1.0 /HPF (0-13.0) 12/23/20 00:40 Hyaline Casts 1 /LPF 12/23/20 00:40 Urine Mucus Few /HPF 12/23/20 00:40 Urine Eosinophils None seen (None Seen) 12/23/20 00:40 Urine Creatinine 134.1 mg/dL (0.1-20.0) H 12/23/20 00:40 Protein/Creatinin Ratio 0.37 12/23/20 00:40 Urine Sodium 26 mmol/L 12/23/20 00:40 Urine Total Protein 50 mg/dL (5-11.8) H 12/23/20 00:40 Coronavirus (PCR) Positive (Negative) A 12/21/20 Unknown Murray/IV: Voiding Method Urinal Active Medications - Current Medications Current Medications: Generic Name Dose Route Start Last Admin Trade Name Freq PRN Reason Stop Dose Admin Acetaminophen 650 mg 12/20/20 12:52 Acetaminophen 325 Mg Tab PO Q4H PRN Pain MILD(1-3)/Fever >100.5/KWON Apixaban 10 mg 12/28/20 22:00 Apixaban 5 Mg Tab PO 01/04/21 10:01 Q12HR GUSTAVO Protocol Ascorbic Acid 500 mg 12/20/20 22:00 12/28/20 09:53 Ascorbic Acid 500 Mg Tab PO 500 mg BID GUSTAVO Administration Cholecalciferol 1,000 unit 12/21/20 10:00 12/28/20 09:53 Cholecalciferol (Vit D3) 1000 Unit (25 Mcg) Tab PO 1,000 unit QDAY GUSTAVO Administration Hydralazine HCl 10 mg 12/22/20 17:56 12/22/20 19:01 Hydralazine 20 Mg/1 Ml Inj IV 10 mg Q6H PRN Administration Hypertension Hydromorphone HCl 0.5 mg 12/20/20 12:52 Hydromorphone 1 Mg/1 Ml Inj IV Q23H PRN Pain , Severe (7-10) Insulin Glargine 20 units 12/25/20 22:00 12/27/20 21:00 Insulin Glargine 100 Units/Ml SUB-Q 20 units QHS GUSTAVO Administration Insulin Human Lispro 0 unit 12/28/20 11:30 12/28/20 12:13 Insulin Lispro 100 Unit/Ml SUB-Q 6 unit ACHS GUSTAVO Administration Protocol Methylprednisolone Sodium Succinate 80 mg 12/21/20 12:00 12/28/20 06:31 Methylprednisolone Sod Succinate 125 Mg/2 Ml Inj IV 12/31/20 06:01 80 mg Q8HR GUSTAVO Administration Metoprolol Tartrate 50 mg 12/21/20 16:00 12/28/20 09:52 Metoprolol Tartrate 50 Mg Tab PO 50 mg BID GUSTAVO Administration Ondansetron HCl 4 mg 12/20/20 12:52 Ondansetron 4 Mg/2 Ml Inj IV Q8H PRN Nausea And Vomiting Oxycodone/Acetaminophen 1 tab 12/20/20 12:52 12/22/20 22:12 Oxycodone /Acetaminophen 5-325mg Tab PO 1 tab Q12H PRN Administration Pain, Moderate (4-6) Sodium Chloride 10 ml 12/20/20 22:00 12/28/20 10:10 Sodium Chloride 0.9% 10 Ml Flush Syringe IV 10 ml BID GUSTAVO Administration Sodium Chloride 10 ml 12/20/20 12:52 Sodium Chloride 0.9% 10 Ml Flush Syringe IV PRN PRN LINE FLUSH Zinc Sulfate 220 mg 12/20/20 22:00 12/28/20 09:53 Zinc Sulfate 220 Mg Cap PO 220 mg BID GUSTAVO Administration Nutrition/Malnutrition Assess - Dietary Evaluation Nutrition/Malnutrition Findings: Nutrition Notes Start: 12/27/20 08:30 Freq: Status: Active Protocol: Document 12/27/20 08:30 GB (Rec: 12/27/20 08:48 GB [id number]) Nutrition Notes Need for Assessment generated from: LOS Initial or Follow up Assessment Current Diagnosis Respiratory Failure Other Pertinent Diagnosis COVID19+ Current Diet Cardiac Labs/Tests 12/27: BUN 53, glucose 242, ALT 80 Pertinent Medications Vitamin C, Vit D3, NaCl, Zn Sulfate, Height 6 ft 3 in Weight 162 kg [place] Body Weight (kg) 89.09 BMI 44.6 Intake Prior to Admission Good Weight change and time frame No reported weight changes Weight Status Morbidly Obese Subjective/Other Information Last BM 12/25 PO intake improved from fair to well per RN notes Percent of energy/protein needs met: 100% with po intake 75% or greater daily Burn Absent Trauma Absent GI Symptoms None Food Allergy No Skin Integrity/Comment No reported complications Current % PO Good (75-100%) Minimum of two criteria No #1 Nutrition Diagnosis No nutrition diagnosis at this time Etiology COVID10+ As Evidenced by Signs and Symptoms Medication regime, reported diagnosis Is patient on ventilator? No Is Patient Ambulatory and/or Out of Bed No [facility] 3081.612 Kcal/Kg value to use for calculation 15 Approximate Energy Requirements Using 2430 kcal/Kg Calculation Used for Recommendations Kcal/kg Additional Notes Protein: 0.6-0.8 g/kg @ 162k-129g Fluids: 1 ml/kcal or per MD Nutrition Intervention Change Diet Order: continue Nutrition Support: n/a Add Supplement/Snack (indicate name/kcal n/a /protein ) Goal #1 PO intake of meals to maintain at 75% or greater daily for LOS Goal #2 Weight to maintain within -3% current weight for LOS Follow-Up By: 01/03/21 Additional Comments f/u: po intake, weight
[2020-12-28 16:12] LABS: Hematocrit 47.9 % (35.5-45.6); Hemoglobin 15.5 gm/dl (11.8-15.2); Mean Corpuscular HGB Conc 32 % (32-34); Mean Corpuscular Volume 88 fl (84-94); Platelet Count 206 K/mm3 (140-440); Red Blood Count 5.46 M/mm3 (3.65-5.03); Red Cell Distribution Width 14.8 % (13.2-15.2)
[2020-12-28 16:21] LABS: INR 1.23 (0.87-1.13)
[2020-12-28 16:22] LABS: Partial Thromboplastin Time 38.4 Sec. (24.2-36.6)
--- NOTE | 2020-12-28 16:40 | Progress Note ---
Assessment and Plan Cultures: SARS CoV2 PCR: positive A/P: 50/M with HTN, CHF, non-compliance, currently incarcerated admitted to the hospital with: #Sepsis, secondary to bilateral pneumonia due to COVID-19: severe disease. Admission labs: procalcitonin 1.45, D-dimer >10,000, CRP 5.2. CRP down to 1.1. #Acute hypoxic respiratory failure: on BiPAP-->HFNC 100%40L. #NAVJOT: Improving/Renally dose antibiotics. #Morbid obesity #Bilateral DVTs: Anticoagulation per primary Recs: Completed Remdesivir. Continue empiric antibiotics x 5 days Continue on steroids x 10 days Does not meet hospital criteria for Actemra based on CRP Leukocytosis likely secondary to high-dose steroids Dain Bergeron MD [facility] O: [phone] F: [phone] Subjective Date of service: 12/28/20 Principal diagnosis: COVID-19 PNA Interval history: Afebrile, white count 19. Objective - Exam Narrative Exam: Physical exam deferred to reduce risk of transmission of COVID-19. Please refer to primary team's note. - Constitutional Vitals: Vital Signs Temp Pulse Resp BP Pulse Ox 97.5 F L 101 H 34 H 137/104 94 12/28/20 12:00 12/28/20 16:00 12/28/20 16:00 12/28/20 16:00 12/28/20 16:00 Temperature -Last 24 Hours Temperature 97.5 F Temperature 97.6 F - Labs CBC & Chem 7: 12/28/20 15:00 12/28/20 04:29 Labs: Abnormal lab results 12/27/20 12/27/20 12/27/20 Range/Units 17:14 21:34 23:55 WBC (4.5-11.0) K/mm3 RBC (3.65-5.03) M/mm3 Hgb (11.8-15.2) gm/dl Hct (35.5-45.6) % PT (12.2-14.9) Sec. INR (0.87-1.13) APTT (24.2-36.6) Sec. Sodium (137-145) mmol/L Potassium (3.6-5.0) mmol/L Carbon Dioxide (22-30) mmol/L BUN (9-20) mg/dL Glucose (75-100) mg/dL POC Glucose 243 H 318 H 281 H (70-105) mg/dL Calcium (8.4-10.2) mg/dL 12/28/20 12/28/20 12/28/20 Range/Units 04:29 05:52 07:39 WBC (4.5-11.0) K/mm3 RBC (3.65-5.03) M/mm3 Hgb (11.8-15.2) gm/dl Hct (35.5-45.6) % PT (12.2-14.9) Sec. INR (0.87-1.13) APTT (24.2-36.6) Sec. Sodium 135 L D (137-145) mmol/L Potassium 5.3 H D (3.6-5.0) mmol/L Carbon Dioxide 18 L D (22-30) mmol/L BUN 52 H (9-20) mg/dL Glucose 280 H (75-100) mg/dL POC Glucose 267 H 261 H (70-105) mg/dL Calcium 7.9 L (8.4-10.2) mg/dL 12/28/20 12/28/20 12/28/20 Range/Units 11:56 15:00 15:00 WBC 19.0 H (4.5-11.0) K/mm3 RBC 5.46 H (3.65-5.03) M/mm3 Hgb 15.5 H (11.8-15.2) gm/dl Hct 47.9 H (35.5-45.6) % PT 16.0 H (12.2-14.9) Sec. INR 1.23 H (0.87-1.13) APTT 38.4 H (24.2-36.6) Sec. Sodium (137-145) mmol/L Potassium (3.6-5.0) mmol/L Carbon Dioxide (22-30) mmol/L BUN (9-20) mg/dL Glucose (75-100) mg/dL POC Glucose 271 H (70-105) mg/dL Calcium (8.4-10.2) mg/dL 12/28/20 Range/Units 16:32 WBC (4.5-11.0) K/mm3 RBC (3.65-5.03) M/mm3 Hgb (11.8-15.2) gm/dl Hct (35.5-45.6) % PT (12.2-14.9) Sec. INR (0.87-1.13) APTT (24.2-36.6) Sec. Sodium (137-145) mmol/L Potassium (3.6-5.0) mmol/L Carbon Dioxide (22-30) mmol/L BUN (9-20) mg/dL Glucose (75-100) mg/dL POC Glucose 246 H (70-105) mg/dL Calcium (8.4-10.2) mg/dL
[2020-12-28] MEDS: APIXABAN 5 MG TAB PO SCH (22:14)
[2020-12-28] MEDS: INSULIN GLARGINE 100 UNITS/ML SUB-Q SCH (22:15)
[2020-12-29] MEDS: methylPREDNISolone Sod Succinate 125 MG/2 ML INJ IV SCH ×3 (05:37→22:15)
[2020-12-29 05:48] LABS: BUN/Creatinine Ratio 51; Blood Urea Nitrogen 51 mg/dL (9-20); Calcium 8.1 mg/dL (8.4-10.2); Hemolysis Index 332
[2020-12-29] MEDS: INSULIN LISPRO 100 UNIT/ML SUB-Q SCH ×4 (08:00→22:12)
--- NOTE | 2020-12-29 08:28 | Progress Note ---
Assessment and Plan Assessment and plan: 50 YO Male with HTN, CHF, Obesity Hypoventilation Syndrome, Medication Noncompliance, Coronivirus Infection Diagnosed 1week ago presents to ED for evaluation. Patient reports "I cannot breathe". Patient states that he has experienced fatigue, shortness of breath, dry cough, decreased exercise tolerance, diminished sense of smell, diminished sense of taste over the past 1 week with persistent and worsening symptoms over the same timeframe. Patient is currently incarcerated and was seen by medical staff at the [facility] and was found to have a pulse oximetry in the 60s this a.m. EMS was notified and upon arrival the patient was found to be in respiratory distress and placed on supplemental oxygen via nonrebreather mask and subsequently transported to [facility] for further care and evaluation of the aforementioned symptoms. The patient was seen and evaluated in the emergency department. All lab and imaging studies reviewed. The patient was found to have a pulse oximetry of 78% on nonrebreathe r mask which is consistent with acute hypoxemic respiratory failure. Chest x- ray revealed bilateral pneumonia. Patient was admitted as PUI placed on isolation, subsequently found to have positive [place] PCR test, ID evaluated the patient, patient was managed with treatment per COVID-19 guidelines, had elevated D-dimers more than 10,000, lower extremity venous Doppler positive for bilateral DVT, started on full dose Lovenox every 12 hours, patient continues to be on high flow oxygen and BiPAP, transitioned to Eliquis today per protocol Patient is cleared by pulmonary to be transferred out of IMCU to telemetry. --Hyperkalemia Current Visit: Yes Status: Acute K5.5, calcium gluconate 1 g IV Kayexalate 30 g p.o. x1 Closely monitor electrolytes -- Acute respiratory failure with hypoxia Current Visit: Yes Status: Acute Plan to address problem: currently on 40 L high flow nasal cannula oxygen, BiPAP 100% FiO2 Wean as tolerated, on high dose Solu-Medrol, pulmonary following Home O2 evaluation prior to discharge -- Coronavirus infection Current Visit: Yes Status: Acute Plan to address problem: Continue isolation, high flow oxygen oxygen/BiPAP Completed Remdesivir. Completed empiric antibiotics 5 days Continue high-dose IV steroids x 10 days Does not meet hospital criteria for Actemra based on CRP -- Obesity hypoventilation syndrome Current Visit: Yes Status: Acute Plan to address problem: Balanced diet, increase physical activity discharge, outpatient pulmonary follow-up for sleep study. Present on admission -- Pneumonia Current Visit: Yes Status: Acute Plan to address problem: Pneumonia protocol: Chest x-ray, CBC, CMP, supplemental oxygen, pulse oximetry, nebulizer therapy, blood culture. -- bilateral DVT on venous Doppler On full dose Lovenox Transition to Eliquis per protocol -- Acute kidney failure with vasomotor nephropathy; Present on admission. Resolved -- morbid obesity BMI; 44.4 Patient needs weight reduction when medically stable He would benefit by bariatric surgical evaluation as outpatient For weight reduction program when he is medically stable -- DVT prophylaxis Current Visit: Yes Status: Acute On Eliquis -- Advance care planning Current Visit: Yes Status: Acute Plan to address problem: Disease education conducted, care plan discussed, diagnoses discussed, prognosis discussed, patient counseled regarding coronavirus vaccination within 90 days of discharge. Patient is stable to be transferred out of [facility] to telemetry The high probability of a clinically significant, sudden or life threatening deterioration of the [CVS, renal, vascular, respiratory, ID ] system(s) required my full and direct attention, intervention and personal management. The aggregate critical care time was [40] minutes. This time is in addition to time spent performing reported procedures but includes the following: [x] Data Review and interpretation [x] Patient assessment and monitoring of vital signs [x] Documentation [x] Medication orders and management 12/21: Continue supportive care, wean oxygen as tolerated, Pulmonary, Nephrology, ID input. Renal improving. Continue steroids, defer Remedesivir to the ID. CPAP at night due to [place] 12/22: Patient remains persistently hypoxic, going to be moving the patient down to the IMCU as he is satting 86% on nonrebreather and also high flow. Prognosis very poor. 12/23: : Continue IMCU. Continue reinforcement for the patient management plan. Continue steroids and remdesivir. Monitor blood sugar closely. Poor prognosis 12/24: Extensive discussion about the patient to be compliant with management plan. Noted hyperkalemia Kayexalate ordered already for the patient. 12/25: Patient remains with poor prognosis hyperkalemia persisted despite improving renal function. Follow-up Kayexalate has been given this morning. Blood sugar still elevated this could be steroid-induced versus underlying diabetes we will check an A1c and in the meantime we will add Lantus at nighttime for better coverage. 12/26: Patient seen and examined remains profoundly hypoxic. Blood sugar still controlled at this time. He did report a fall yesterday but denied any head trauma CT of the head reviewed negative. Counseling provided on compliance. He also has profound bilateral DVT patient is on full dose anticoagulation while is not clear if this developed here on anticoagulation it most likely has been pre sent prior to presentation. Nevertheless we will consult vascular to further evaluate. Electrolytes appear to have been repleted we will recheck labs in a.m. due to profound leukocytosis. 12/27; severely hypoxemic on 40 L high flow nasal cannula oxygen 100% FiO2 Wean as tolerated, poor prognosis 12/28; patient remains on 40 L high flow NC oxygen and intermittent BiPAP 100% FiO2 Wean as tolerated, closely monitor Pulmonary cleared to transfer out of [facility] to telemetry We will also transition full dose anticoagulation from Lovenox to Eliquis per protocol 12/29: Hyperkalemia, corrected with calcium gluconate, Kayexalate Monitor electrolytes Patient remains on high flow nasal cannula oxygen 40 L/100% FiO2/96 O2 sats. History Interval history: Patient remains on high flow nasal cannula oxygen 40 L/100% FiO2/96 O2 sats. Patient has no new complaints, anxious to go home Vital signs reviewed Hospitalist Physical - Constitutional Vitals: Temp Pulse Resp BP Pulse Ox 97.5 F L 94 H 32 H 158/105 97 12/29/20 07:57 12/29/20 05:31 12/29/20 05:31 12/29/20 05:31 12/29/20 05:31 General appearance: Present: no acute distress, well-nourished, obese (Morbidly obese) - EENT Eyes: Present: PERRL, EOM intact - Neck Neck: Present: supple, normal ROM - Respiratory Respiratory effort: normal Respiratory: bilateral: diminished, rhonchi, negative: rales, wheezing - Cardiovascular Rhythm: regular Heart Sounds: Present: S1 & S2 - Extremities Extremities: no ischemia, No edema - Abdominal General gastrointestinal: soft, non-tender, non-distended - Integumentary Integumentary: Present: clear, warm - Psychiatric Psychiatric: appropriate mood/affect, cooperative - Neurologic Neurologic: moves all extremities HEART Score - HEART Score Troponin: Troponin T < 0.010 ng/mL (0.00-0.029) 12/21/20 18:26 Results - Labs CBC & Chem 7: 12/28/20 15:00 12/29/20 04:39 Labs: Laboratory Last Values WBC 19.0 K/mm3 (4.5-11.0) H 12/28/20 15:00 RBC 5.46 M/mm3 (3.65-5.03) H 12/28/20 15:00 Hgb 15.5 gm/dl (11.8-15.2) H 12/28/20 15:00 Hct 47.9 % (35.5-45.6) H 12/28/20 15:00 MCV 88 fl (84-94) 12/28/20 15:00 MCH 28 pg (28-32) 12/28/20 15:00 MCHC 32 % (32-34) 12/28/20 15:00 RDW 14.8 % (13.2-15.2) 12/28/20 15:00 Plt Count 206 K/mm3 (140-440) 12/28/20 15:00 Add Manual Diff Complete 12/21/20 06:10 Total Counted 100 12/21/20 06:10 Seg Neuts % (Manual) 89.0 % (40.0-70.0) H 12/21/20 06:10 Band Neutrophils % 3.0 % 12/21/20 06:10 Lymphocytes % (Manual) 5.0 % (13.4-35.0) L 12/20/20 11:31 Reactive Lymphs % (Man) 2.0 % 12/21/20 06:10 Monocytes % (Manual) 1.0 % (0.0-7.3) 12/21/20 06:10 Myelocytes % 4.0 % 12/21/20 06:10 Blast Cells % 1.0 % 12/21/20 06:10 Nucleated RBC % 1.0 % (0.0-0.9) H 12/21/20 06:10 Seg Neutrophils # Man 17.9 K/mm3 (1.8-7.7) H 12/21/20 06:10 Band Neutrophils # 0.6 K/mm3 12/21/20 06:10 Lymphocytes # (Manual) 0.0 K/mm3 (1.2-5.4) L 12/21/20 06:10 Abs React Lymphs (Man) 0.4 K/mm3 12/21/20 06:10 Monocytes # (Manual) 0.2 K/mm3 (0.0-0.8) 12/21/20 06:10 Eosinophils # (Manual) 0.0 K/mm3 (0.0-0.4) 12/21/20 06:10 Basophils # (Manual) 0.0 K/mm3 (0.0-0.1) 12/21/20 06:10 Metamyelocytes # 0.0 K/mm3 12/21/20 06:10 Myelocytes # 0.8 K/mm3 12/21/20 06:10 Promyelocytes # 0.0 K/mm3 12/21/20 06:10 Blast Cells # 0.1 K/mm3 12/21/20 06:10 WBC Morphology Not Reportable 12/21/20 06:10 Hypersegmented Neuts Not Reportable 12/21/20 06:10 Hyposegmented Neuts Not Reportable 12/21/20 06:10 Hypogranular Neuts Not Reportable 12/21/20 06:10 Smudge Cells Not Reportable 12/21/20 06:10 Toxic Granulation Not Reportable 12/21/20 06:10 Toxic Vacuolation Not Reportable 12/21/20 06:10 Dohle Bodies Not Reportable 12/21/20 06:10 Pelger-Huet Anomaly Not Reportable 12/21/20 06:10 Chantel Rods Not Reportable 12/21/20 06:10 Platelet Estimate Consistent w auto 12/21/20 06:10 Clumped Platelets Not Reportable 12/21/20 06:10 Plt Clumps, EDTA Not Reportable 12/21/20 06:10 Large Platelets Not Reportable 12/21/20 06:10 Giant Platelets Not Reportable 12/21/20 06:10 Platelet Satelliting Not Reportable 12/21/20 06:10 Plt Morphology Comment Not Reportable 12/21/20 06:10 RBC Morphology Not Reportable 12/21/20 06:10 Dimorphic RBCs Not Reportable 12/21/20 06:10 Polychromasia Not Reportable 12/21/20 06:10 Hypochromasia Not Reportable 12/21/20 06:10 Poikilocytosis Not Reportable 12/21/20 06:10 Anisocytosis Not Reportable 12/21/20 06:10 Microcytosis Not Reportable 12/21/20 06:10 Macrocytosis Not Reportable 12/21/20 06:10 Spherocytes Rare 12/21/20 06:10 Pappenheimer Bodies Not Reportable 12/21/20 06:10 Sickle Cells Not Reportable 12/21/20 06:10 Target Cells Rare 12/21/20 06:10 Tear Drop Cells Not Reportable 12/21/20 06:10 Ovalocytes Not Reportable 12/21/20 06:10 Helmet Cells Not Reportable 12/21/20 06:10 [place] Bodies Not Reportable 12/21/20 06:10 [place] Rings Not Reportable 12/21/20 06:10 Chaparro Cells Not Reportable 12/21/20 06:10 Bite Cells Not Reportable 12/21/20 06:10 Crenated Cell Not Reportable 12/21/20 06:10 Elliptocytes Not Reportable 12/21/20 06:10 Acanthocytes (Spur) Not Reportable 12/21/20 06:10 Rouleaux Not Reportable 12/21/20 06:10 Hemoglobin C Crystals Not Reportable 12/21/20 06:10 Schistocytes Not Reportable 12/21/20 06:10 Malaria parasites Not Reportable 12/21/20 06:10 Andrew Bodies Not Reportable 12/21/20 06:10 Hem Pathologist Commnt No 12/21/20 06:10 PT 16.0 Sec. (12.2-14.9) H 12/28/20 15:00 INR 1.23 (0.87-1.13) H 12/28/20 15:00 APTT 38.4 Sec. (24.2-36.6) H 12/28/20 15:00 D-Dimer 6017.45 ng/mlDDU (0-234) H 12/25/20 11:14 ABG pH 7.446 (7.320-7.450) 12/23/20 13:06 POC ABG pCO2 29.6 mmHg (32.0-48.0) L 12/23/20 13:06 POC ABG pO2 57.8 mmHg (83-108) L 12/23/20 13:06 POC ABG HCO3 19.9 12/23/20 13:06 ABG O2 Saturation 89.8 (0-100) 12/23/20 13:06 POC ABG Base Excess -2.8 12/23/20 13:06 ABG Hemoglobin 15.3 (12.0-17.5) 12/23/20 13:06 ABG Oxyhemoglobin 88.9 (94-98) L 12/23/20 13:06 ABG Methemoglobin 0.3 (0.0-1.5) 12/23/20 13:06 ABG Sodium 140.6 mmol/L (136.0-145.0) 12/23/20 13:06 ABG Potassium 4.7 mmol/L (3.40-4.50) H 12/23/20 13:06 ABG Chloride 107.0 mmol/L (98-107) 12/23/20 13:06 ABG Glucose 286 mg/dL (65-95) H 12/23/20 13:06 Carboxyhemoglobin 0.7 (0.5-1.5) 12/23/20 13:06 FiO2 % 80.0 12/23/20 13:06 Sodium 139 mmol/L (137-145) 12/29/20 04:39 Potassium 5.5 mmol/L (3.6-5.0) H 12/29/20 04:39 Chloride 100.1 mmol/L (98-107) 12/29/20 04:39 Carbon Dioxide 24 mmol/L (22-30) 12/29/20 04:39 Anion Gap 20 mmol/L 12/29/20 04:39 BUN 51 mg/dL (9-20) H 12/29/20 04:39 Creatinine 1.0 mg/dL (0.8-1.3) 12/29/20 04:39 Estimated GFR > 60 ml/min 12/29/20 04:39 BUN/Creatinine Ratio 51 % 12/29/20 04:39 Glucose 257 mg/dL (75-100) H 12/29/20 04:39 POC Glucose 243 mg/dL (70-105) H 12/29/20 07:16 Hemoglobin A1c 7.2 % (4-6) H 12/23/20 05:15 Calcium 8.1 mg/dL (8.4-10.2) L 12/29/20 04:39 Ferritin 1385.0 ng/mL (30.0-300.0) H 12/25/20 11:14 Total Bilirubin 1.00 mg/dL (0.1-1.2) 12/27/20 04:46 AST 26 units/L (5-40) 12/27/20 04:46 ALT 80 units/L (7-56) H 12/27/20 04:46 Alkaline Phosphatase 52 units/L (35-129) 12/27/20 04:46 Lactate Dehydrogenase 10 units/L (91-180) L 12/20/20 11:31 Troponin T < 0.010 ng/mL (0.00-0.029) 12/21/20 18:26 C-Reactive Protein 0.60 mg/dL (0.00-1.30) 12/25/20 11:14 NT-Pro-B Natriuret Pep 6191 pg/mL (0-900) H 12/21/20 14:32 Total Protein 6.4 g/dL (6.3-8.2) 12/27/20 04:46 Albumin 3.0 g/dL (3.9-5) L 12/27/20 04:46 Albumin/Globulin Ratio 0.9 % 12/27/20 04:46 Triglycerides 226 mg/dL (2-149) H 12/20/20 11:31 Cholesterol 175 mg/dL (50-199) 12/20/20 11:31 LDL Cholesterol Direct 98 mg/dL (50-130) 12/20/20 11:31 HDL Cholesterol 31 mg/dL (40-59) L 12/20/20 11:31 Cholesterol/HDL Ratio 5.64 % 12/20/20 11:31 Procalcitonin 1.45 ng/mL (<0.15) 12/20/20 11:31 PTH Intact 109.4 pg/mL (15-65) H 12/23/20 05:15 Arterial Blood Glucose 286 mg/dL (65-95) H 12/23/20 13:06 Urine Color Straw (Yellow) 12/23/20 00:40 Urine Turbidity Clear (Clear) 12/23/20 00:40 Urine pH 5.0 (5.0-7.0) 12/23/20 00:40 Ur Specific [place] 1.030 (1.003-1.030) 12/23/20 00:40 Urine Protein 30 mg/dl mg/dL (Negative) 12/23/20 00:40 Urine Glucose (UA) Negative mg/dL (Negative) 12/23/20 00:40 Urine Ketones Negative mg/dL (Negative) 12/23/20 00:40 Urine Blood Negative (Negative) 12/23/20 00:40 Urine Nitrite Negative (Negative) 12/23/20 00:40 Ur Reducing Substances Not Reportable 12/23/20 00:40 Urine Bilirubin Negative (Negative) 12/23/20 00:40 Urine Ictotest Not Reportable 12/23/20 00:40 Urine Urobilinogen < 2.0 mg/dL (<2.0) 12/23/20 00:40 Ur Leukocyte Esterase Negative (Negative) 12/23/20 00:40 Urine WBC (Auto) 8.0 /HPF (0.0-6.0) H 12/23/20 00:40 Urine RBC (Auto) 1.0 /HPF (0.0-6.0) 12/23/20 00:40 U Epithel Cells (Auto) < 1.0 /HPF (0-13.0) 12/23/20 00:40 Hyaline Casts 1 /LPF 12/23/20 00:40 Urine Mucus Few /HPF 12/23/20 00:40 Urine Eosinophils None seen (None Seen) 12/23/20 00:40 Urine Creatinine 134.1 mg/dL (0.1-20.0) H 12/23/20 00:40 Protein/Creatinin Ratio 0.37 12/23/20 00:40 Urine Sodium 26 mmol/L 12/23/20 00:40 Urine Total Protein 50 mg/dL (5-11.8) H 12/23/20 00:40 Coronavirus (PCR) Positive (Negative) A 12/21/20 Unknown Murray/IV: Voiding Method Urinal Active Medications - Current Medications Current Medications: Generic Name Dose Route Start Last Admin Trade Name Freq PRN Reason Stop Dose Admin Acetaminophen 650 mg 12/20/20 12:52 Acetaminophen 325 Mg Tab PO Q4H PRN Pain MILD(1-3)/Fever >100.5/KWON Apixaban 10 mg 12/28/20 22:00 12/28/20 22:14 Apixaban 5 Mg Tab PO 01/04/21 10:01 10 mg Q12HR GUSTAVO Administration Protocol Ascorbic Acid 500 mg 12/20/20 22:00 12/28/20 22:14 Ascorbic Acid 500 Mg Tab PO 500 mg BID GUSTAVO Administration Cholecalciferol 1,000 unit 12/21/20 10:00 12/28/20 09:53 Cholecalciferol (Vit D3) 1000 Unit (25 Mcg) Tab PO 1,000 unit QDAY GUSTAVO Administration Hydralazine HCl 10 mg 12/22/20 17:56 12/22/20 19:01 Hydralazine 20 Mg/1 Ml Inj IV 10 mg Q6H PRN Administration Hypertension Hydromorphone HCl 0.5 mg 12/20/20 12:52 Hydromorphone 1 Mg/1 Ml Inj IV Q23H PRN Pain , Severe (7-10) Calcium Gluconate 1,000 mg/ 110 mls @ 660 mls/hr 12/29/20 08:20 Sodium Chloride IV 12/29/20 08:29 ONCE ONE Insulin Glargine 20 units 12/25/20 22:00 12/28/20 22:15 Insulin Glargine 100 Units/Ml SUB-Q 20 units QHS GUSTAVO Administration Insulin Human Lispro 0 unit 12/28/20 11:30 12/28/20 22:15 Insulin Lispro 100 Unit/Ml SUB-Q 8 unit ACHS GUSTAVO Administration Protocol Methylprednisolone Sodium Succinate 80 mg 12/21/20 12:00 12/29/20 05:37 Methylprednisolone Sod Succinate 125 Mg/2 Ml Inj IV 12/31/20 06:01 80 mg Q8HR GUSTAVO Administration Metoprolol Tartrate 50 mg 12/21/20 16:00 12/28/20 22:14 Metoprolol Tartrate 50 Mg Tab PO 50 mg BID GUSTAVO Administration Ondansetron HCl 4 mg 12/20/20 12:52 Ondansetron 4 Mg/2 Ml Inj IV Q8H PRN Nausea And Vomiting Oxycodone/Acetaminophen 1 tab 12/20/20 12:52 12/22/20 22:12 Oxycodone /Acetaminophen 5-325mg Tab PO 1 tab Q12H PRN Administration Pain, Moderate (4-6) Sodium Chloride 10 ml 12/20/20 22:00 12/29/20 05:34 Sodium Chloride 0.9% 10 Ml Flush Syringe IV 10 ml BID GUSTAVO Administration Sodium Chloride 10 ml 12/20/20 12:52 Sodium Chloride 0.9% 10 Ml Flush Syringe IV PRN PRN LINE FLUSH Sodium Polystyrene Sulfonate 30 gm 12/29/20 08:21 Sodium Polystyrene 15 Gm/60 Ml Oral Liqd PO 12/29/20 08:22 ONCE ONE Zinc Sulfate 220 mg 12/20/20 22:00 12/28/20 21:30 Zinc Sulfate 220 Mg Cap PO 220 mg BID GUSTAVO Administration Nutrition/Malnutrition Assess - Dietary Evaluation Nutrition/Malnutrition Findings: Nutrition Notes Start: 12/27/20 08:30 Freq: Status: Active Protocol: Document 12/27/20 08:30 GB (Rec: 12/27/20 08:48 GB [email or web address]) Nutrition Notes Need for Assessment generated from: LOS Initial or Follow up Assessment Current Diagnosis Respiratory Failure Other Pertinent Diagnosis COVID19+ Current Diet Cardiac Labs/Tests 12/27: BUN 53, glucose 242, ALT 80 Pertinent Medications Vitamin C, Vit D3, NaCl, Zn Sulfate, Height 6 ft 3 in Weight 162 kg [place] Body Weight (kg) 89.09 BMI 44.6 Intake Prior to Admission Good Weight change and time frame No reported weight changes Weight Status Morbidly Obese Subjective/Other Information Last BM 12/25 PO intake improved from fair to well per RN notes Percent of energy/protein needs met: 100% with po intake 75% or greater daily Burn Absent Trauma Absent GI Symptoms None Food Allergy No Skin Integrity/Comment No reported complications Current % PO Good (75-100%) Minimum of two criteria No #1 Nutrition Diagnosis No nutrition diagnosis at this time Etiology COVID10+ As Evidenced by Signs and Symptoms Medication regime, reported diagnosis Is patient on ventilator? No Is Patient Ambulatory and/or Out of Bed No REE-([facility]-confined to bed) 3081.612 Kcal/Kg value to use for calculation 15 Approximate Energy Requirements Using 2430 kcal/Kg Calculation Used for Recommendations Kcal/kg Additional Notes Protein: 0.6-0.8 g/kg @ 162k-129g Fluids: 1 ml/kcal or per MD Nutrition Intervention Change Diet Order: continue Nutrition Support: n/a Add Supplement/Snack (indicate name/kcal n/a /protein ) Goal #1 PO intake of meals to maintain at 75% or greater daily for LOS Goal #2 Weight to maintain within -3% current weight for LOS Follow-Up By: 01/03/21 Additional Comments f/u: po intake, weight
[2020-12-29] MEDS ORDERED: SODIUM POLYSTYRENE 15 GM/60 ML ORAL LIQD PO SCH (09:30)
[2020-12-29] MEDS ORDERED: CALCIUM GLUCONATE 1,000 MG in SODIUM CHLORIDE 0.9% 100 ML IV SCH (09:45)
[2020-12-29] MEDS: APIXABAN 5 MG TAB PO SCH ×2 (10:00→22:13)
[2020-12-29] MEDS: ASCORBIC ACID 500 MG TAB PO SCH ×2 (10:00→22:14)
[2020-12-29] MEDS: CHOLECALCIFEROL (VIT D3) 1000 UNIT (25 mcg) TAB PO SCH (10:00)
[2020-12-29] MEDS: ZINC SULFATE 220 MG CAP PO SCH ×2 (10:00→22:15)
[2020-12-29] MEDS: METOPROLOL TARTRATE 50 MG TAB PO SCH ×2 (10:00→22:14)
[2020-12-29] MEDS ORDERED: FUROSEMIDE 40 MG/4 ML INJ IV SCH (10:15)
--- NOTE | 2020-12-29 10:20 | Progress Note ---
Assessment and Plan 1. Acute kidney injury: NAVJOT in the setting of Covid-19 infection and sepsis. Suspect ATN. Low FeNa. Renal US negative. Monitor renal function. Creatinine level is better. Avoid nephrotoxic agents. Meds dosage based on GFR. 2. FEN: Hyperkalemia, [place]al[place], monitor. A dose of IV Lasix. Monitor lytes and volume status. 3. Acute hypoxic resp failure, POA: 2/ Covid-19 PNA. Test positive for Covid-19. Per pt he received J&J vaccine in Mar 2020. On HFNC O2 and NRB. Followed by Pulmonary. 4. Covid-19 PNA, POA: Test positive for Covid-19. Per pt he received J&J vaccine in Mar 2020. On Solumedrol. S/p Remdesivir. Monitor. 5. Sepsis, POA: 04/26 Covid-19 pneumonia. Followed by ID. 6. HTN: Monitor BP. Adjust meds as needed. 7. DM / Elevated bl glu: A1C 7.2. Monitor. Subjective: Patient was seen and examined at the bedside. Examination: General appearance: well-developed, appears stated age, obese, on HFNC O2 and NRB HEENT: atraumatic Neck: trachea midline Respiratory: coarse breath sounds Heart: S1S2, regular, no murmur Abdomen: soft, obese, bowel sounds heard, NT Integumentary: no rash Neurologic: alert, moving extremities Ext: no edema Subjective Date of service: 12/29/20 Principal diagnosis: COVID-19 PNA Objective - Vital Signs Vital signs: Vital Signs - 12hr 12/28/20 12/28/20 12/28/20 22:31 23:01 23:31 Temperature Pulse Rate 104 H 101 H 91 H Pulse Rate [ From Monitor] Respiratory 45 H 36 H 32 H Rate Blood Pressure 149/101 149/101 149/101 O2 Sat by Pulse 94 97 93 Oximetry 12/29/20 12/29/20 12/29/20 00:00 00:31 01:01 Temperature 99.0 F Pulse Rate 86 90 Pulse Rate [ 101 H From Monitor] Respiratory 35 H 36 H Rate Blood Pressure 143/92 143/92 143/92 O2 Sat by Pulse 97 99 88 Oximetry 12/29/20 12/29/20 12/29/20 01:31 02:01 02:31 Temperature Pulse Rate 90 Pulse Rate [ From Monitor] Respiratory 29 H Rate Blood Pressure 143/92 143/92 143/92 O2 Sat by Pulse 96 97 96 Oximetry 12/29/20 12/29/20 12/29/20 03:01 03:31 04:00 Temperature 99.0 F Pulse Rate 97 H 94 H 94 H Pulse Rate [ 101 H From Monitor] Respiratory 39 H 37 H 35 H Rate Blood Pressure 143/92 143/92 158/105 O2 Sat by Pulse 96 97 98 Oximetry 12/29/20 12/29/20 12/29/20 04:31 05:01 05:31 Temperature Pulse Rate 96 H 94 H 94 H Pulse Rate [ From Monitor] Respiratory 37 H 28 H 32 H Rate Blood Pressure 158/105 158/105 158/105 O2 Sat by Pulse 95 98 97 Oximetry 12/29/20 12/29/20 12/29/20 06:01 06:31 07:01 Temperature Pulse Rate 103 H 100 H 94 H Pulse Rate [ From Monitor] Respiratory 31 H 15 32 H Rate Blood Pressure 158/105 158/105 158/105 O2 Sat by Pulse 96 84 95 Oximetry 12/29/20 12/29/20 12/29/20 07:31 07:57 08:00 Temperature 97.5 F L Pulse Rate 91 H 91 H Pulse Rate [ From Monitor] Respiratory 27 H 32 H Rate Blood Pressure 158/105 128/92 O2 Sat by Pulse 97 96 Oximetry 12/29/20 12/29/20 12/29/20 08:31 09:01 09:31 Temperature Pulse Rate 90 94 H 102 H Pulse Rate [ From Monitor] Respiratory 27 H 26 H 34 H Rate Blood Pressure 128/92 128/92 128/92 O2 Sat by Pulse 96 97 97 Oximetry 12/29/20 10:01 Temperature Pulse Rate 87 Pulse Rate [ From Monitor] Respiratory 27 H Rate Blood Pressure 128/92 O2 Sat by Pulse 95 Oximetry - Lab 12/28/20 15:00 12/29/20 04:39 Most recent lab results ABG pH 7.446 (7.320-7.450) 12/23/20 13:06 ABG O2 Saturation 89.8 (0-100) 12/23/20 13:06 Calcium 8.1 mg/dL (8.4-10.2) L 12/29/20 04:39 Urine Creatinine 134.1 mg/dL (0.1-20.0) H 12/23/20 00:40 Urine Sodium 26 mmol/L 12/23/20 00:40 Urine Total Protein 50 mg/dL (5-11.8) H 12/23/20 00:40 Medications & Allergies - Medications Allergies/Adverse Reactions: Allergies No Known Allergies Allergy (Verified 12/21/20 05:36) Home Medications: Home Medications Medication Instructions Recorded Confirmed Last Taken Type Losartan [Cozaar] 50 mg PO QDAY 12/20/20 12/20/20 12/20/20 07:00 History 50 Active Medications: Generic Name Dose Route Start Last Admin Trade Name Freq PRN Reason Stop Dose Admin Acetaminophen 650 mg 12/20/20 12:52 Acetaminophen 325 Mg Tab PO Q4H PRN Pain MILD(1-3)/Fever >100.5/KWON Apixaban 10 mg 12/28/20 22:00 12/28/20 22:14 Apixaban 5 Mg Tab PO 01/04/21 10:01 10 mg Q12HR GUSTAVO Administration Protocol Apixaban 5 mg 01/04/21 22:00 Apixaban 5 Mg Tab PO Q12HR [facility] Protocol Ascorbic Acid 500 mg 12/20/20 22:00 12/28/20 22:14 Ascorbic Acid 500 Mg Tab PO 500 mg BID GUSTAVO Administration Cholecalciferol 1,000 unit 12/21/20 10:00 12/28/20 09:53 Cholecalciferol (Vit D3) 1000 Unit (25 Mcg) Tab PO 1,000 unit QDAY GUSTAVO Administration Furosemide 40 mg 12/29/20 10:15 Furosemide 40 Mg/4 Ml Inj IV 12/29/20 14:15 [id number]@1015 [facility] Hydralazine HCl 10 mg 12/22/20 17:56 12/22/20 19:01 Hydralazine 20 Mg/1 Ml Inj IV 10 mg Q6H PRN Administration Hypertension Hydromorphone HCl 0.5 mg 12/20/20 12:52 Hydromorphone 1 Mg/1 Ml Inj IV Q23H PRN Pain , Severe (7-10) Calcium Gluconate 1,000 mg/ 110 mls @ 660 mls/hr 12/29/20 09:45 Sodium Chloride IV 12/29/20 13:45 ONCE@0945 [facility] Insulin Glargine 25 units 12/29/20 22:00 Insulin Glargine 100 Units/Ml SUB-Q QHS GUSTAVO Insulin Human Lispro 0 unit 12/28/20 11:30 12/28/20 22:15 Insulin Lispro 100 Unit/Ml SUB-Q 8 unit ACHS GUSTAOV Administration Protocol Methylprednisolone Sodium Succinate 80 mg 12/21/20 12:00 12/29/20 05:37 Methylprednisolone Sod Succinate 125 Mg/2 Ml Inj IV 12/31/20 06:01 80 mg Q8HR GUSTAVO Administration Metoprolol Tartrate 50 mg 12/21/20 16:00 12/28/20 22:14 Metoprolol Tartrate 50 Mg Tab PO 50 mg BID GUSTAVO Administration Ondansetron HCl 4 mg 12/20/20 12:52 Ondansetron 4 Mg/2 Ml Inj IV Q8H PRN Nausea And Vomiting Oxycodone/Acetaminophen 1 tab 12/20/20 12:52 12/22/20 22:12 Oxycodone /Acetaminophen 5-325mg Tab PO 1 tab Q12H PRN Administration Pain, Moderate (4-6) Sodium Chloride 10 ml 12/20/20 22:00 12/29/20 05:34 Sodium Chloride 0.9% 10 Ml Flush Syringe IV 10 ml BID GUSTAVO Administration Sodium Chloride 10 ml 12/20/20 12:52 Sodium Chloride 0.9% 10 Ml Flush Syringe IV PRN PRN LINE FLUSH Sodium Polystyrene Sulfonate 30 gm 12/29/20 09:30 Sodium Polystyrene 15 Gm/60 Ml Oral Liqd PO 12/29/20 13:30 ONCE@0930 GUSTAVO Zinc Sulfate 220 mg 12/20/20 22:00 12/28/20 21:30 Zinc Sulfate 220 Mg Cap PO 220 mg BID GUSTAVO Administration
--- NOTE | 2020-12-29 11:26 | Progress Note ---
Assessment and Plan 50 y/o obese male, COVID positive admitted with acute hypoxic respiratory failure, renal failure and elevated D-Dimer 12/29/20: COntinue anticoagulation. Prone if possible. Awaiting COVID floor bed. Renal gave lasix this morning. 12/28/20: Reviewed IR note, appreciate their eval. Will start to wean steroids later this week. Continue anticoagulation. Prone if able. Ok with transfer back to floor as he has not required continuous bipap. Still would consider diuresis. 12/27/20: Need to remember that BNP was greater thann 6k on admit. Now has bilateral DVT's extensive. Spoke with IMS yesterday with plans to consult vascular for evaluation already on therapeutic lovenox. Prone if possible. continue steroids. Guarded prognosis. 12/26/20: Lasix has not been given lately. Will hold off today as well. Follow up renal recs. Prone patient if able. Continue steroids. Guarded prognosis. 12/23/20: Lasix 40 again today. Suggest daily therapy at least for several days to help with volume overload. This could help with oxygenation. Steroids and Remdesivir. Prone if able. BP control. Guarded prognosis. 1. Ordered stat BNP 2. Agree with Echo, follow up read as it has been done per the chart 3. Agree with steroids right now 4. Was given lasix yesterday and renal function improved. Agree with continued therapy, and follow up renal recs 5. Remdesivir ordered by ID 6. Prone as tolerated during the day and sleep prone at night 7. Guarded prognosis. Subjective Date of service: 12/29/20 Principal diagnosis: COVID-19 PNA Interval history: No acute events. Still on HFNC and NRB combo with decent sats. Objective Vital Signs - 12hr 12/28/20 12/29/20 12/29/20 23:31 00:00 00:31 Temperature 99.0 F Pulse Rate 91 H 86 90 Pulse Rate [ 101 H From Monitor] Respiratory 32 H 35 H 36 H Rate Blood Pressure 149/101 143/92 143/92 O2 Sat by Pulse 93 97 99 Oximetry 12/29/20 12/29/20 12/29/20 01:01 01:31 02:01 Temperature Pulse Rate Pulse Rate [ From Monitor] Respiratory Rate Blood Pressure 143/92 143/92 143/92 O2 Sat by Pulse 88 96 97 Oximetry 12/29/20 12/29/20 12/29/20 02:31 03:01 03:31 Temperature Pulse Rate 90 97 H 94 H Pulse Rate [ From Monitor] Respiratory 29 H 39 H 37 H Rate Blood Pressure 143/92 143/92 143/92 O2 Sat by Pulse 96 96 97 Oximetry 12/29/20 12/29/20 12/29/20 04:00 04:31 05:01 Temperature 99.0 F Pulse Rate 94 H 96 H 94 H Pulse Rate [ 101 H From Monitor] Respiratory 35 H 37 H 28 H Rate Blood Pressure 158/105 158/105 158/105 O2 Sat by Pulse 98 95 98 Oximetry 12/29/20 12/29/20 12/29/20 05:31 06:01 06:31 Temperature Pulse Rate 94 H 103 H 100 H Pulse Rate [ From Monitor] Respiratory 32 H 31 H 15 Rate Blood Pressure 158/105 158/105 158/105 O2 Sat by Pulse 97 96 84 Oximetry 12/29/20 12/29/20 12/29/20 07:01 07:31 07:57 Temperature 97.5 F L Pulse Rate 94 H 91 H Pulse Rate [ From Monitor] Respiratory 32 H 27 H Rate Blood Pressure 158/105 158/105 O2 Sat by Pulse 95 97 Oximetry 12/29/20 12/29/20 12/29/20 08:00 08:31 09:01 Temperature Pulse Rate 91 H 90 94 H Pulse Rate [ From Monitor] Respiratory 32 H 27 H 26 H Rate Blood Pressure 128/92 128/92 128/92 O2 Sat by Pulse 96 96 97 Oximetry 12/29/20 12/29/20 09:31 10:01 Temperature Pulse Rate 102 H 87 Pulse Rate [ From Monitor] Respiratory 34 H 27 H Rate Blood Pressure 128/92 128/92 O2 Sat by Pulse 97 95 Oximetry CBC and BMP: 12/28/20 15:00 12/29/20 04:39 ABG, PT/INR, D-dimer: ABG ABG pH 7.446 (7.320-7.450) 12/23/20 13:06 POC ABG pCO2 29.6 mmHg (32.0-48.0) L 12/23/20 13:06 POC ABG pO2 57.8 mmHg (83-108) L 12/23/20 13:06 POC ABG HCO3 19.9 12/23/20 13:06 ABG O2 Saturation 89.8 (0-100) 12/23/20 13:06 PT/INR, D-dimer PT 16.0 Sec. (12.2-14.9) H 12/28/20 15:00 INR 1.23 (0.87-1.13) H 12/28/20 15:00 D-Dimer 6017.45 ng/mlDDU (0-234) H 12/25/20 11:14 Abnormal lab findings: Abnormal Labs 12/20/20 12/20/20 12/20/20 11:31 11:31 11:31 WBC 16.5 H RBC 5.27 H Hgb Hct Seg Neuts % (Manual) 90.0 H Lymphocytes % (Manual) 5.0 L Nucleated RBC % Seg Neutrophils # Man 14.9 H Lymphocytes # (Manual) 0.8 L PT INR APTT D-Dimer > 04082 H POC ABG pCO2 POC ABG pO2 ABG Oxyhemoglobin ABG Potassium ABG Glucose Sodium 130 L Potassium Chloride 94.5 L Carbon Dioxide BUN 64 H Creatinine 2.6 H Glucose 154 H POC Glucose Hemoglobin A1c Calcium Ferritin AST ALT Lactate Dehydrogenase Troponin T C-Reactive Protein NT-Pro-B Natriuret Pep Albumin 3.5 L Triglycerides HDL Cholesterol PTH Intact Arterial Blood Glucose Urine WBC (Auto) Urine Creatinine Urine Total Protein Coronavirus (PCR) 12/20/20 12/21/20 12/21/20 11:31 06:10 06:10 WBC 20.1 H RBC 5.55 H Hgb 15.4 H Hct 47.3 H Seg Neuts % (Manual) 89.0 H Lymphocytes % (Manual) Nucleated RBC % 1.0 H Seg Neutrophils # Man 17.9 H Lymphocytes # (Manual) 0.0 L PT INR APTT D-Dimer POC ABG pCO2 POC ABG pO2 ABG Oxyhemoglobin ABG Potassium ABG Glucose Sodium 136 L Potassium Chloride Carbon Dioxide BUN 57 H Creatinine 1.8 H Glucose 193 H POC Glucose Hemoglobin A1c Calcium Ferritin AST ALT Lactate Dehydrogenase 10 L Troponin T 0.106 H* C-Reactive Protein 5.20 H NT-Pro-B Natriuret Pep Albumin Triglycerides 226 H HDL Cholesterol 31 L PTH Intact Arterial Blood Glucose Urine WBC (Auto) Urine Creatinine Urine Total Protein Coronavirus (PCR) 12/21/20 12/21/20 12/21/20 13:29 14:32 Unknown WBC RBC Hgb Hct Seg Neuts % (Manual) Lymphocytes % (Manual) Nucleated RBC % Seg Neutrophils # Man Lymphocytes # (Manual) PT INR APTT D-Dimer POC ABG pCO2 POC ABG pO2 ABG Oxyhemoglobin ABG Potassium ABG Glucose Sodium 134 L Potassium Chloride Carbon Dioxide BUN 57 H Creatinine 1.8 H Glucose 340 H POC Glucose Hemoglobin A1c Calcium 8.3 L Ferritin AST ALT Lactate Dehydrogenase Troponin T C-Reactive Protein NT-Pro-B Natriuret Pep 6191 H Albumin 3.3 L Triglycerides HDL Cholesterol PTH Intact Arterial Blood Glucose Urine WBC (Auto) Urine Creatinine Urine Total Protein Coronavirus (PCR) Positive A 12/22/20 12/22/20 12/22/20 05:56 05:56 17:21 WBC 26.6 H RBC 5.22 H Hgb Hct Seg Neuts % (Manual) Lymphocytes % (Manual) Nucleated RBC % Seg Neutrophils # Man Lymphocytes # (Manual) PT INR APTT D-Dimer POC ABG pCO2 POC ABG pO2 ABG Oxyhemoglobin ABG Potassium ABG Glucose Sodium Potassium Chloride Carbon Dioxide BUN 64 H Creatinine 2.0 H Glucose 227 H POC Glucose 188 H Hemoglobin A1c Calcium Ferritin AST ALT Lactate Dehydrogenase Troponin T C-Reactive Protein NT-Pro-B Natriuret Pep Albumin 3.4 L Triglycerides HDL Cholesterol PTH Intact Arterial Blood Glucose Urine WBC (Auto) Urine Creatinine Urine Total Protein Coronavirus (PCR) 12/23/20 12/23/20 12/23/20 00:40 00:40 05:15 WBC RBC Hgb Hct Seg Neuts % (Manual) Lymphocytes % (Manual) Nucleated RBC % Seg Neutrophils # Man Lymphocytes # (Manual) PT INR APTT D-Dimer POC ABG pCO2 POC ABG pO2 ABG Oxyhemoglobin ABG Potassium ABG Glucose Sodium Potassium 5.6 H Chloride Carbon Dioxide BUN 71 H Creatinine 1.8 H Glucose 225 H POC Glucose Hemoglobin A1c Calcium Ferritin AST 46 H ALT 83 H Lactate Dehydrogenase Troponin T C-Reactive Protein NT-Pro-B Natriuret Pep Albumin 3.6 L Triglycerides HDL Cholesterol PTH Intact Arterial Blood Glucose Urine WBC (Auto) 8.0 H Urine Creatinine 134.1 H Urine Total Protein 50 H Coronavirus (PCR) 12/23/20 12/23/20 12/23/20 05:15 05:15 11:47 WBC RBC Hgb Hct Seg Neuts % (Manual) Lymphocytes % (Manual) Nucleated RBC % Seg Neutrophils # Man Lymphocytes # (Manual) PT INR APTT D-Dimer POC ABG pCO2 POC ABG pO2 ABG Oxyhemoglobin ABG Potassium ABG Glucose Sodium Potassium Chloride Carbon Dioxide BUN Creatinine Glucose POC Glucose 257 H Hemoglobin A1c 7.2 H Calcium Ferritin AST ALT Lactate Dehydrogenase Troponin T C-Reactive Protein NT-Pro-B Natriuret Pep Albumin Triglycerides HDL Cholesterol PTH Intact 109.4 H Arterial Blood Glucose Urine WBC (Auto) Urine Creatinine Urine Total Protein Coronavirus (PCR) 12/23/20 12/23/20 12/24/20 13:06 16:41 00:02 WBC RBC Hgb Hct Seg Neuts % (Manual) Lymphocytes % (Manual) Nucleated RBC % Seg Neutrophils # Man Lymphocytes # (Manual) PT INR APTT D-Dimer POC ABG pCO2 29.6 L POC ABG pO2 57.8 L ABG Oxyhemoglobin 88.9 L ABG Potassium 4.7 H ABG Glucose 286 H Sodium Potassium Chloride Carbon Dioxide BUN Creatinine Glucose POC Glucose 199 H 213 H Hemoglobin A1c Calcium Ferritin AST ALT Lactate Dehydrogenase Troponin T C-Reactive Protein NT-Pro-B Natriuret Pep Albumin Triglycerides HDL Cholesterol PTH Intact Arterial Blood Glucose 286 H Urine WBC (Auto) Urine Creatinine Urine Total Protein Coronavirus (PCR) 12/24/20 12/24/20 12/24/20 04:56 05:17 12:03 WBC RBC Hgb Hct Seg Neuts % (Manual) Lymphocytes % (Manual) Nucleated RBC % Seg Neutrophils # Man Lymphocytes # (Manual) PT INR APTT D-Dimer POC ABG pCO2 POC ABG pO2 ABG Oxyhemoglobin ABG Potassium ABG Glucose Sodium Potassium 5.4 H Chloride Carbon Dioxide 18 L D BUN 74 H Creatinine 1.6 H Glucose 228 H POC Glucose 204 H 218 H Hemoglobin A1c Calcium Ferritin AST 44 H ALT 105 H Lactate Dehydrogenase Troponin T C-Reactive Protein NT-Pro-B Natriuret Pep Albumin 3.5 L Triglycerides HDL Cholesterol PTH Intact Arterial Blood Glucose Urine WBC (Auto) Urine Creatinine Urine Total Protein Coronavirus (PCR) 12/24/20 12/24/20 12/25/20 17:44 22:25 04:44 WBC RBC Hgb Hct Seg Neuts % (Manual) Lymphocytes % (Manual) Nucleated RBC % Seg Neutrophils # Man Lymphocytes # (Manual) PT INR APTT D-Dimer POC ABG pCO2 POC ABG pO2 ABG Oxyhemoglobin ABG Potassium ABG Glucose Sodium Potassium 5.5 H Chloride Carbon Dioxide BUN 58 H Creatinine Glucose 235 H POC Glucose 266 H 224 H Hemoglobin A1c Calcium Ferritin AST ALT Lactate Dehydrogenase Troponin T C-Reactive Protein NT-Pro-B Natriuret Pep Albumin Triglycerides HDL Cholesterol PTH Intact Arterial Blood Glucose Urine WBC (Auto) Urine Creatinine Urine Total Protein Coronavirus (PCR) 12/25/20 12/25/20 12/25/20 06:11 11:14 11:14 WBC RBC Hgb Hct Seg Neuts % (Manual) Lymphocytes % (Manual) Nucleated RBC % Seg Neutrophils # Man Lymphocytes # (Manual) PT INR APTT D-Dimer 6017.45 H POC ABG pCO2 POC ABG pO2 ABG Oxyhemoglobin ABG Potassium ABG Glucose Sodium Potassium Chloride Carbon Dioxide BUN Creatinine Glucose POC Glucose 191 H Hemoglobin A1c Calcium Ferritin 1385.0 H AST ALT Lactate Dehydrogenase Troponin T C-Reactive Protein NT-Pro-B Natriuret Pep Albumin Triglycerides HDL Cholesterol PTH Intact Arterial Blood Glucose Urine WBC (Auto) Urine Creatinine Urine Total Protein Coronavirus (PCR) 12/25/20 12/25/20 12/25/20 11:38 17:00 23:31 WBC RBC Hgb Hct Seg Neuts % (Manual) Lymphocytes % (Manual) Nucleated RBC % Seg Neutrophils # Man Lymphocytes # (Manual) PT INR APTT D-Dimer POC ABG pCO2 POC ABG pO2 ABG Oxyhemoglobin ABG Potassium ABG Glucose Sodium Potassium Chloride Carbon Dioxide BUN Creatinine Glucose POC Glucose 213 H 327 H 307 H Hemoglobin A1c Calcium Ferritin AST ALT Lactate Dehydrogenase Troponin T C-Reactive Protein NT-Pro-B Natriuret Pep Albumin Triglycerides HDL Cholesterol PTH Intact Arterial Blood Glucose Urine WBC (Auto) Urine Creatinine Urine Total Protein Coronavirus (PCR) 12/26/20 12/26/20 12/26/20 04:23 05:32 11:50 WBC RBC Hgb Hct Seg Neuts % (Manual) Lymphocytes % (Manual) Nucleated RBC % Seg Neutrophils # Man Lymphocytes # (Manual) PT INR APTT D-Dimer POC ABG pCO2 POC ABG pO2 ABG Oxyhemoglobin ABG Potassium ABG Glucose Sodium 146 H Potassium Chloride Carbon Dioxide BUN 49 H Creatinine Glucose 257 H POC Glucose 265 H 231 H Hemoglobin A1c Calcium Ferritin AST ALT Lactate Dehydrogenase Troponin T C-Reactive Protein NT-Pro-B Natriuret Pep Albumin Triglycerides HDL Cholesterol PTH Intact Arterial Blood Glucose Urine WBC (Auto) Urine Creatinine Urine Total Protein Coronavirus (PCR) 12/26/20 12/26/20 12/27/20 17:17 23:37 04:46 WBC RBC Hgb Hct Seg Neuts % (Manual) Lymphocytes % (Manual) Nucleated RBC % Seg Neutrophils # Man Lymphocytes # (Manual) PT INR APTT D-Dimer POC ABG pCO2 POC ABG pO2 ABG Oxyhemoglobin ABG Potassium ABG Glucose Sodium Potassium Chloride Carbon Dioxide BUN 53 H Creatinine Glucose 242 H POC Glucose 308 H 256 H Hemoglobin A1c Calcium Ferritin AST ALT 80 H Lactate Dehydrogenase Troponin T C-Reactive Protein NT-Pro-B Natriuret Pep Albumin 3.0 L Triglycerides HDL Cholesterol PTH Intact Arterial Blood Glucose Urine WBC (Auto) Urine Creatinine Urine Total Protein Coronavirus (PCR) 12/27/20 12/27/20 12/27/20 04:46 05:58 11:47 WBC 21.2 H RBC 5.17 H Hgb Hct Seg Neuts % (Manual) Lymphocytes % (Manual) Nucleated RBC % Seg Neutrophils # Man Lymphocytes # (Manual) PT INR APTT D-Dimer POC ABG pCO2 POC ABG pO2 ABG Oxyhemoglobin ABG Potassium ABG Glucose Sodium Potassium Chloride Carbon Dioxide BUN Creatinine Glucose POC Glucose 178 H 184 H Hemoglobin A1c Calcium Ferritin AST ALT Lactate Dehydrogenase Troponin T C-Reactive Protein NT-Pro-B Natriuret Pep Albumin Triglycerides HDL Cholesterol PTH Intact Arterial Blood Glucose Urine WBC (Auto) Urine Creatinine Urine Total Protein Coronavirus (PCR) 12/27/20 12/27/20 12/27/20 17:14 21:34 23:55 WBC RBC Hgb Hct Seg Neuts % (Manual) Lymphocytes % (Manual) Nucleated RBC % Seg Neutrophils # Man Lymphocytes # (Manual) PT INR APTT D-Dimer POC ABG pCO2 POC ABG pO2 ABG Oxyhemoglobin ABG Potassium ABG Glucose Sodium Potassium Chloride Carbon Dioxide BUN Creatinine Glucose POC Glucose 243 H 318 H 281 H Hemoglobin A1c Calcium Ferritin AST ALT Lactate Dehydrogenase Troponin T C-Reactive Protein NT-Pro-B Natriuret Pep Albumin Triglycerides HDL Cholesterol PTH Intact Arterial Blood Glucose Urine WBC (Auto) Urine Creatinine Urine Total Protein Coronavirus (PCR) 12/28/20 12/28/20 12/28/20 04:29 05:52 07:39 WBC RBC Hgb Hct Seg Neuts % (Manual) Lymphocytes % (Manual) Nucleated RBC % Seg Neutrophils # Man Lymphocytes # (Manual) PT INR APTT D-Dimer POC ABG pCO2 POC ABG pO2 ABG Oxyhemoglobin ABG Potassium ABG Glucose Sodium 135 L D Potassium 5.3 H D Chloride Carbon Dioxide 18 L D BUN 52 H Creatinine Glucose 280 H POC Glucose 267 H 261 H Hemoglobin A1c Calcium 7.9 L Ferritin AST ALT Lactate Dehydrogenase Troponin T C-Reactive Protein NT-Pro-B Natriuret Pep Albumin Triglycerides HDL Cholesterol PTH Intact Arterial Blood Glucose Urine WBC (Auto) Urine Creatinine Urine Total Protein Coronavirus (PCR) 12/28/20 12/28/20 12/28/20 11:56 15:00 15:00 WBC 19.0 H RBC 5.46 H Hgb 15.5 H Hct 47.9 H Seg Neuts % (Manual) Lymphocytes % (Manual) Nucleated RBC % Seg Neutrophils # Man Lymphocytes # (Manual) PT 16.0 H INR 1.23 H APTT 38.4 H D-Dimer POC ABG pCO2 POC ABG pO2 ABG Oxyhemoglobin ABG Potassium ABG Glucose Sodium Potassium Chloride Carbon Dioxide BUN Creatinine Glucose POC Glucose 271 H Hemoglobin A1c Calcium Ferritin AST ALT Lactate Dehydrogenase Troponin T C-Reactive Protein NT-Pro-B Natriuret Pep Albumin Triglycerides HDL Cholesterol PTH Intact Arterial Blood Glucose Urine WBC (Auto) Urine Creatinine Urine Total Protein Coronavirus (PCR) 12/28/20 12/28/20 12/29/20 16:32 22:05 04:39 WBC RBC Hgb Hct Seg Neuts % (Manual) Lymphocytes % (Manual) Nucleated RBC % Seg Neutrophils # Man Lymphocytes # (Manual) PT INR APTT D-Dimer POC ABG pCO2 POC ABG pO2 ABG Oxyhemoglobin ABG Potassium ABG Glucose Sodium Potassium 5.5 H Chloride Carbon Dioxide BUN 51 H Creatinine Glucose 257 H POC Glucose 246 H 324 H Hemoglobin A1c Calcium 8.1 L Ferritin AST ALT Lactate Dehydrogenase Troponin T C-Reactive Protein NT-Pro-B Natriuret Pep Albumin Triglycerides HDL Cholesterol PTH Intact Arterial Blood Glucose Urine WBC (Auto) Urine Creatinine Urine Total Protein Coronavirus (PCR) 12/29/20 07:16 WBC RBC Hgb Hct Seg Neuts % (Manual) Lymphocytes % (Manual) Nucleated RBC % Seg Neutrophils # Man Lymphocytes # (Manual) PT INR APTT D-Dimer POC ABG pCO2 POC ABG pO2 ABG Oxyhemoglobin ABG Potassium ABG Glucose Sodium Potassium Chloride Carbon Dioxide BUN Creatinine Glucose POC Glucose 243 H Hemoglobin A1c Calcium Ferritin AST ALT Lactate Dehydrogenase Troponin T C-Reactive Protein NT-Pro-B Natriuret Pep Albumin Triglycerides HDL Cholesterol PTH Intact Arterial Blood Glucose Urine WBC (Auto) Urine Creatinine Urine Total Protein Coronavirus (PCR) Allied health notes reviewed: nursing
--- NOTE | 2020-12-29 14:59 | Progress Note ---
Assessment and Plan Cultures: SARS CoV2 PCR: positive A/P: 50/M with HTN, CHF, non-compliance, currently incarcerated admitted to the hospital with: #Sepsis, secondary to bilateral pneumonia due to COVID-19: severe disease. Admission labs: procalcitonin 1.45, D-dimer >10,000, CRP 5.2. CRP down to 1.1. #Acute hypoxic respiratory failure: on BiPAP-->HFNC 100%40L. #NAVJOT: Improving/Renally dose antibiotics. #Morbid obesity #Bilateral DVTs: Anticoagulation per primary Recs: Completed Remdesivir. Continue empiric antibiotics x 5 days Continue on steroids x 10 days Does not meet hospital criteria for Actemra based on CRP Leukocytosis likely secondary to high-dose steroids Dain Bergeron MD [facility], [facility] ([facility] O: [phone] F: [phone] Subjective Date of service: 12/29/20 Principal diagnosis: COVID-19 PNA Interval history: Afebrile, no acute change. On high flow nasal cannula. Objective - Exam Narrative Exam: Physical exam deferred to reduce risk of transmission of COVID-19. Please refer to primary team's note. - Constitutional Vitals: Vital Signs Temp Pulse Resp BP Pulse Ox 97.5 F L 87 26 H 128/92 90 12/29/20 07:57 12/29/20 10:01 12/29/20 12:00 12/29/20 10:01 12/29/20 12:00 Temperature -Last 24 Hours Temperature 97.5 F Temperature 99.0 F Temperature 99.0 F Temperature 98.7 F - Labs CBC & Chem 7: 12/28/20 15:00 12/29/20 04:39 Labs: Abnormal lab results 12/28/20 12/28/20 12/28/20 Range/Units 15:00 15:00 16:32 WBC 19.0 H (4.5-11.0) K/mm3 RBC 5.46 H (3.65-5.03) M/mm3 Hgb 15.5 H (11.8-15.2) gm/dl Hct 47.9 H (35.5-45.6) % PT 16.0 H (12.2-14.9) Sec. INR 1.23 H (0.87-1.13) APTT 38.4 H (24.2-36.6) Sec. Potassium (3.6-5.0) mmol/L BUN (9-20) mg/dL Glucose (75-100) mg/dL POC Glucose 246 H (70-105) mg/dL Calcium (8.4-10.2) mg/dL 12/28/20 12/29/20 12/29/20 Range/Units 22:05 04:39 07:16 WBC (4.5-11.0) K/mm3 RBC (3.65-5.03) M/mm3 Hgb (11.8-15.2) gm/dl Hct (35.5-45.6) % PT (12.2-14.9) Sec. INR (0.87-1.13) APTT (24.2-36.6) Sec. Potassium 5.5 H (3.6-5.0) mmol/L BUN 51 H (9-20) mg/dL Glucose 257 H (75-100) mg/dL POC Glucose 324 H 243 H (70-105) mg/dL Calcium 8.1 L (8.4-10.2) mg/dL 12/29/20 Range/Units 11:41 WBC (4.5-11.0) K/mm3 RBC (3.65-5.03) M/mm3 Hgb (11.8-15.2) gm/dl Hct (35.5-45.6) % PT (12.2-14.9) Sec. INR (0.87-1.13) APTT (24.2-36.6) Sec. Potassium (3.6-5.0) mmol/L BUN (9-20) mg/dL Glucose (75-100) mg/dL POC Glucose 250 H (70-105) mg/dL Calcium (8.4-10.2) mg/dL
[2020-12-29] MEDS ORDERED: INSULIN GLARGINE 100 UNITS/ML SUB-Q SCH (22:00)
[2020-12-29] MEDS: INSULIN GLARGINE 100 UNITS/ML SUB-Q SCH (22:16)
[2020-12-30] MEDS: methylPREDNISolone Sod Succinate 125 MG/2 ML INJ IV SCH ×3 (06:13→21:43)
[2020-12-30] MEDS: INSULIN LISPRO 100 UNIT/ML SUB-Q SCH ×4 (08:29→22:11)
[2020-12-30 08:40] LABS: Hematocrit 44.6 % (35.5-45.6); Hemoglobin 14.4 gm/dl (11.8-15.2); Mean Corpuscular HGB Conc 32 % (32-34); Mean Corpuscular Volume 86 fl (84-94); Platelet Count 178 K/mm3 (140-440); Red Blood Count 5.22 M/mm3 (3.65-5.03); Red Cell Distribution Width 14.3 % (13.2-15.2)
[2020-12-30 09:01] LABS: BUN/Creatinine Ratio 55; Blood Urea Nitrogen 60 mg/dL (9-20); Calcium 8.5 mg/dL (8.4-10.2); Hemolysis Index 21
--- NOTE | 2020-12-30 09:14 | Progress Note ---
Assessment and Plan Assessment and plan: 50 YO Male with HTN, CHF, Obesity Hypoventilation Syndrome, Medication Noncompliance, Coronivirus Infection Diagnosed 1week ago presents to ED for evaluation. Patient reports "I cannot breathe". Patient states that he has experienced fatigue, shortness of breath, dry cough, decreased exercise tolerance, diminished sense of smell, diminished sense of taste over the past 1 week with persistent and worsening symptoms over the same timeframe. Patient is currently incarcerated and was seen by medical staff at the [facility] and was found to have a pulse oximetry in the 60s this a.m. EMS was notified and upon arrival the patient was found to be in respiratory distress and placed on supplemental oxygen via nonrebreather mask and subsequently transported to [facility] for further care and evaluation of the aforementioned symptoms. The patient was seen and evaluated in the emergency department. All lab and imaging studies reviewed. The patient was found to have a pulse oximetry of 78% on nonrebreathe r mask which is consistent with acute hypoxemic respiratory failure. Chest x- ray revealed bilateral pneumonia. Patient was admitted as PUI placed on isolation, subsequently found to have positive [place] PCR test, ID evaluated the patient, patient was managed with treatment per COVID-19 guidelines, had elevated D-dimers more than 10,000, lower extremity venous Doppler positive for bilateral DVT, started on full dose Lovenox every 12 hours, patient continues to be on high flow oxygen and BiPAP, transitioned to Eliquis today per protocol Patient is cleared by pulmonary to be transferred out of IMCU to telemetry. --Hyperkalemia Current Visit: Yes Status: Acute K5.5, calcium gluconate 1 g IV Kayexalate 30 g p.o. x1 Closely monitor electrolytes -- Acute respiratory failure with hypoxia Current Visit: Yes Status: Acute Plan to address problem: currently on 40 L high flow nasal cannula oxygen, BiPAP 100% FiO2 Wean as tolerated, on high dose Solu-Medrol, pulmonary following Home O2 evaluation prior to discharge -- Coronavirus infection Current Visit: Yes Status: Acute Plan to address problem: Continue isolation, high flow oxygen oxygen/BiPAP Completed Remdesivir. Completed empiric antibiotics 5 days Continue high-dose IV steroids x 10 days Does not meet hospital criteria for Actemra based on CRP -- Obesity hypoventilation syndrome Current Visit: Yes Status: Acute Plan to address problem: Balanced diet, increase physical activity discharge, outpatient pulmonary follow-up for sleep study. Present on admission -- Pneumonia Current Visit: Yes Status: Acute Plan to address problem: Pneumonia protocol: Chest x-ray, CBC, CMP, supplemental oxygen, pulse oximetry, nebulizer therapy, blood culture. -- bilateral DVT on venous Doppler On full dose Lovenox Transition to Eliquis per protocol -- Acute kidney failure with vasomotor nephropathy; Present on admission. Resolved -- morbid obesity BMI; 44.4 Patient needs weight reduction when medically stable He would benefit by bariatric surgical evaluation as outpatient For weight reduction program when he is medically stable -- DVT prophylaxis Current Visit: Yes Status: Acute On Eliquis -- Advance care planning Current Visit: Yes Status: Acute Plan to address problem: Disease education conducted, care plan discussed, diagnoses discussed, prognosis discussed, patient counseled regarding coronavirus vaccination within 90 days of discharge. Patient is stable to be transferred out of [facility] to telemetry The high probability of a clinically significant, sudden or life threatening deterioration of the [CVS, renal, vascular, respiratory, ID ] system(s) required my full and direct attention, intervention and personal management. The aggregate critical care time was [40] minutes. This time is in addition to time spent performing reported procedures but includes the following: [x] Data Review and interpretation [x] Patient assessment and monitoring of vital signs [x] Documentation [x] Medication orders and management 12/21: Continue supportive care, wean oxygen as tolerated, Pulmonary, Nephrology, ID input. Renal improving. Continue steroids, defer Remedesivir to the ID. CPAP at night due to CARINA 12/22: Patient remains persistently hypoxic, going to be moving the patient down to the IMCU as he is satting 86% on nonrebreather and also high flow. Prognosis very poor. 12/23: : Continue IMCU. Continue reinforcement for the patient management plan. Continue steroids and remdesivir. Monitor blood sugar closely. Poor prognosis 12/24: Extensive discussion about the patient to be compliant with management plan. Noted hyperkalemia Kayexalate ordered already for the patient. 12/25: Patient remains with poor prognosis hyperkalemia persisted despite improving renal function. Follow-up Kayexalate has been given this morning. Blood sugar still elevated this could be steroid-induced versus underlying diabetes we will check an A1c and in the meantime we will add Lantus at nighttime for better coverage. 12/26: Patient seen and examined remains profoundly hypoxic. Blood sugar still controlled at this time. He did report a fall yesterday but denied any head trauma CT of the head reviewed negative. Counseling provided on compliance. He also has profound bilateral DVT patient is on full dose anticoagulation while is not clear if this developed here on anticoagulation it most likely has been pre sent prior to presentation. Nevertheless we will consult vascular to further evaluate. Electrolytes appear to have been repleted we will recheck labs in a.m. due to profound leukocytosis. 12/27; severely hypoxemic on 40 L high flow nasal cannula oxygen 100% FiO2 Wean as tolerated, poor prognosis 12/28; patient remains on 40 L high flow NC oxygen and intermittent BiPAP 100% FiO2 Wean as tolerated, closely monitor Pulmonary cleared to transfer out of [facility] to telemetry We will also transition full dose anticoagulation from Lovenox to Eliquis per protocol 12/29: Hyperkalemia, corrected with calcium gluconate, Kayexalate Monitor electrolytes Patient remains on high flow nasal cannula oxygen 40 L/100% FiO2/96 O2 sats. 12/30; remains on high flow oxygen 40 L, will wean as tolerated Hyperkalemia resolved, increase Lantus dose to 30 units subcu twice a day History Interval history: I have seen and examined the patient at the bedside Isolation precautions and PPE protocols followed Patient complains of shortness of breath and tiredness Continues to be on 40 L of high flow nasal cannula oxygen/100% FiO2/97% O2 sats In mild distress. Morbidly obese Hospitalist Physical - Constitutional Vitals: Temp Pulse Resp BP Pulse Ox 98.4 F 96 H 35 H 157/90 92 12/30/20 07:58 12/30/20 08:00 12/30/20 08:00 12/30/20 08:00 12/30/20 08:00 General appearance: Present: mild distress, well-nourished, obese (Morbidly obese), other (On high flow nasal cannula oxygen) - EENT Eyes: Present: PERRL, EOM intact - Neck Neck: Present: supple, normal ROM - Respiratory Respiratory effort: labored Respiratory: bilateral: diminished, rhonchi, negative: rales, wheezing - Cardiovascular Rhythm: regular Heart Sounds: Present: S1 & S2 - Extremities Extremities: no ischemia, No edema - Abdominal General gastrointestinal: soft, non-tender, non-distended, normal bowel sounds - Integumentary Integumentary: Present: clear, warm - Psychiatric Psychiatric: appropriate mood/affect, cooperative - Neurologic Neurologic: CNII-XII intact, moves all extremities HEART Score - HEART Score Troponin: Troponin T < 0.010 ng/mL (0.00-0.029) 12/21/20 18:26 Results - Labs CBC & Chem 7: 12/30/20 08:27 12/30/20 08:27 Labs: Laboratory Last Values WBC 25.1 K/mm3 (4.5-11.0) H 12/30/20 08:27 RBC 5.22 M/mm3 (3.65-5.03) H 12/30/20 08:27 Hgb 14.4 gm/dl (11.8-15.2) 12/30/20 08:27 Hct 44.6 % (35.5-45.6) 12/30/20 08:27 MCV 86 fl (84-94) 12/30/20 08:27 MCH 28 pg (28-32) 12/30/20 08:27 MCHC 32 % (32-34) 12/30/20 08:27 RDW 14.3 % (13.2-15.2) 12/30/20 08:27 Plt Count 178 K/mm3 (140-440) 12/30/20 08:27 Add Manual Diff Complete 12/21/20 06:10 Total Counted 100 12/21/20 06:10 Seg Neuts % (Manual) 89.0 % (40.0-70.0) H 12/21/20 06:10 Band Neutrophils % 3.0 % 12/21/20 06:10 Lymphocytes % (Manual) 5.0 % (13.4-35.0) L 12/20/20 11:31 Reactive Lymphs % (Man) 2.0 % 12/21/20 06:10 Monocytes % (Manual) 1.0 % (0.0-7.3) 12/21/20 06:10 Myelocytes % 4.0 % 12/21/20 06:10 Blast Cells % 1.0 % 12/21/20 06:10 Nucleated RBC % 1.0 % (0.0-0.9) H 12/21/20 06:10 Seg Neutrophils # Man 17.9 K/mm3 (1.8-7.7) H 12/21/20 06:10 Band Neutrophils # 0.6 K/mm3 12/21/20 06:10 Lymphocytes # (Manual) 0.0 K/mm3 (1.2-5.4) L 12/21/20 06:10 Abs React Lymphs (Man) 0.4 K/mm3 12/21/20 06:10 Monocytes # (Manual) 0.2 K/mm3 (0.0-0.8) 12/21/20 06:10 Eosinophils # (Manual) 0.0 K/mm3 (0.0-0.4) 12/21/20 06:10 Basophils # (Manual) 0.0 K/mm3 (0.0-0.1) 12/21/20 06:10 Metamyelocytes # 0.0 K/mm3 12/21/20 06:10 Myelocytes # 0.8 K/mm3 12/21/20 06:10 Promyelocytes # 0.0 K/mm3 12/21/20 06:10 Blast Cells # 0.1 K/mm3 12/21/20 06:10 WBC Morphology Not Reportable 12/21/20 06:10 Hypersegmented Neuts Not Reportable 12/21/20 06:10 Hyposegmented Neuts Not Reportable 12/21/20 06:10 Hypogranular Neuts Not Reportable 12/21/20 06:10 Smudge Cells Not Reportable 12/21/20 06:10 Toxic Granulation Not Reportable 12/21/20 06:10 Toxic Vacuolation Not Reportable 12/21/20 06:10 Dohle Bodies Not Reportable 12/21/20 06:10 Pelger-Huet Anomaly Not Reportable 12/21/20 06:10 Chantel Rods Not Reportable 12/21/20 06:10 Platelet Estimate Consistent w auto 12/21/20 06:10 Clumped Platelets Not Reportable 12/21/20 06:10 Plt Clumps, EDTA Not Reportable 12/21/20 06:10 Large Platelets Not Reportable 12/21/20 06:10 Giant Platelets Not Reportable 12/21/20 06:10 Platelet Satelliting Not Reportable 12/21/20 06:10 Plt Morphology Comment Not Reportable 12/21/20 06:10 RBC Morphology Not Reportable 12/21/20 06:10 Dimorphic RBCs Not Reportable 12/21/20 06:10 Polychromasia Not Reportable 12/21/20 06:10 Hypochromasia Not Reportable 12/21/20 06:10 Poikilocytosis Not Reportable 12/21/20 06:10 Anisocytosis Not Reportable 12/21/20 06:10 Microcytosis Not Reportable 12/21/20 06:10 Macrocytosis Not Reportable 12/21/20 06:10 Spherocytes Rare 12/21/20 06:10 Pappenheimer Bodies Not Reportable 12/21/20 06:10 Sickle Cells Not Reportable 12/21/20 06:10 Target Cells Rare 12/21/20 06:10 Tear Drop Cells Not Reportable 12/21/20 06:10 Ovalocytes Not Reportable 12/21/20 06:10 Helmet Cells Not Reportable 12/21/20 06:10 [place] Bodies Not Reportable 12/21/20 06:10 [place] Rings Not Reportable 12/21/20 06:10 [place] Cells Not Reportable 12/21/20 06:10 Bite Cells Not Reportable 12/21/20 06:10 Crenated Cell Not Reportable 12/21/20 06:10 Elliptocytes Not Reportable 12/21/20 06:10 Acanthocytes (Spur) Not Reportable 12/21/20 06:10 Rouleaux Not Reportable 12/21/20 06:10 Hemoglobin C Crystals Not Reportable 12/21/20 06:10 Schistocytes Not Reportable 12/21/20 06:10 Malaria parasites Not Reportable 12/21/20 06:10 Andrew Bodies Not Reportable 12/21/20 06:10 Hem Pathologist Commnt No 12/21/20 06:10 PT 16.0 Sec. (12.2-14.9) H 12/28/20 15:00 INR 1.23 (0.87-1.13) H 12/28/20 15:00 APTT 38.4 Sec. (24.2-36.6) H 12/28/20 15:00 D-Dimer 6017.45 ng/mlDDU (0-234) H 12/25/20 11:14 ABG pH 7.446 (7.320-7.450) 12/23/20 13:06 POC ABG pCO2 29.6 mmHg (32.0-48.0) L 12/23/20 13:06 POC ABG pO2 57.8 mmHg (83-108) L 12/23/20 13:06 POC ABG HCO3 19.9 12/23/20 13:06 ABG O2 Saturation 89.8 (0-100) 12/23/20 13:06 POC ABG Base Excess -2.8 12/23/20 13:06 ABG Hemoglobin 15.3 (12.0-17.5) 12/23/20 13:06 ABG Oxyhemoglobin 88.9 (94-98) L 12/23/20 13:06 ABG Methemoglobin 0.3 (0.0-1.5) 12/23/20 13:06 ABG Sodium 140.6 mmol/L (136.0-145.0) 12/23/20 13:06 ABG Potassium 4.7 mmol/L (3.40-4.50) H 12/23/20 13:06 ABG Chloride 107.0 mmol/L (98-107) 12/23/20 13:06 ABG Glucose 286 mg/dL (65-95) H 12/23/20 13:06 Carboxyhemoglobin 0.7 (0.5-1.5) 12/23/20 13:06 FiO2 % 80.0 12/23/20 13:06 Sodium 140 mmol/L (137-145) 12/30/20 08:27 Potassium 4.4 mmol/L (3.6-5.0) 12/30/20 08:27 Chloride 101.6 mmol/L (98-107) 12/30/20 08:27 Carbon Dioxide 25 mmol/L (22-30) 12/30/20 08:27 Anion Gap 18 mmol/L 12/30/20 08:27 BUN 60 mg/dL (9-20) H 12/30/20 08:27 Creatinine 1.1 mg/dL (0.8-1.3) 12/30/20 08:27 Estimated GFR > 60 ml/min 12/30/20 08:27 BUN/Creatinine Ratio 55 % 12/30/20 08:27 Glucose 240 mg/dL (75-100) H 12/30/20 08:27 POC Glucose 193 mg/dL (70-105) H 12/30/20 07:26 Hemoglobin A1c 7.2 % (4-6) H 12/23/20 05:15 Calcium 8.5 mg/dL (8.4-10.2) 12/30/20 08:27 Ferritin 1385.0 ng/mL (30.0-300.0) H 12/25/20 11:14 Total Bilirubin 1.00 mg/dL (0.1-1.2) 12/27/20 04:46 AST 26 units/L (5-40) 12/27/20 04:46 ALT 80 units/L (7-56) H 12/27/20 04:46 Alkaline Phosphatase 52 units/L (35-129) 12/27/20 04:46 Lactate Dehydrogenase 10 units/L (91-180) L 12/20/20 11:31 Troponin T < 0.010 ng/mL (0.00-0.029) 12/21/20 18:26 C-Reactive Protein 0.60 mg/dL (0.00-1.30) 12/25/20 11:14 NT-Pro-B Natriuret Pep 6191 pg/mL (0-900) H 12/21/20 14:32 Total Protein 6.4 g/dL (6.3-8.2) 12/27/20 04:46 Albumin 3.0 g/dL (3.9-5) L 12/27/20 04:46 Albumin/Globulin Ratio 0.9 % 12/27/20 04:46 Triglycerides 226 mg/dL (2-149) H 12/20/20 11:31 Cholesterol 175 mg/dL (50-199) 12/20/20 11:31 LDL Cholesterol Direct 98 mg/dL (50-130) 12/20/20 11:31 HDL Cholesterol 31 mg/dL (40-59) L 12/20/20 11:31 Cholesterol/HDL Ratio 5.64 % 12/20/20 11:31 Procalcitonin 1.45 ng/mL (<0.15) 12/20/20 11:31 PTH Intact 109.4 pg/mL (15-65) H 12/23/20 05:15 Arterial Blood Glucose 286 mg/dL (65-95) H 12/23/20 13:06 Urine Color Straw (Yellow) 12/23/20 00:40 Urine Turbidity Clear (Clear) 12/23/20 00:40 Urine pH 5.0 (5.0-7.0) 12/23/20 00:40 Ur Specific [place] 1.030 (1.003-1.030) 12/23/20 00:40 Urine Protein 30 mg/dl mg/dL (Negative) 12/23/20 00:40 Urine Glucose (UA) Negative mg/dL (Negative) 12/23/20 00:40 Urine Ketones Negative mg/dL (Negative) 12/23/20 00:40 Urine Blood Negative (Negative) 12/23/20 00:40 Urine Nitrite Negative (Negative) 12/23/20 00:40 Ur Reducing Substances Not Reportable 12/23/20 00:40 Urine Bilirubin Negative (Negative) 12/23/20 00:40 Urine Ictotest Not Reportable 12/23/20 00:40 Urine Urobilinogen < 2.0 mg/dL (<2.0) 12/23/20 00:40 Ur Leukocyte Esterase Negative (Negative) 12/23/20 00:40 Urine WBC (Auto) 8.0 /HPF (0.0-6.0) H 12/23/20 00:40 Urine RBC (Auto) 1.0 /HPF (0.0-6.0) 12/23/20 00:40 U Epithel Cells (Auto) < 1.0 /HPF (0-13.0) 12/23/20 00:40 Hyaline Casts 1 /LPF 12/23/20 00:40 Urine Mucus Few /HPF 12/23/20 00:40 Urine Eosinophils None seen (None Seen) 12/23/20 00:40 Urine Creatinine 134.1 mg/dL (0.1-20.0) H 12/23/20 00:40 Protein/Creatinin Ratio 0.37 12/23/20 00:40 Urine Sodium 26 mmol/L 12/23/20 00:40 Urine Total Protein 50 mg/dL (5-11.8) H 12/23/20 00:40 Coronavirus (PCR) Positive (Negative) A 12/21/20 Unknown Murray/IV: Voiding Method Urinal Active Medications - Current Medications Current Medications: Generic Name Dose Route Start Last Admin Trade Name Freq PRN Reason Stop Dose Admin Acetaminophen 650 mg 12/20/20 12:52 Acetaminophen 325 Mg Tab PO Q4H PRN Pain MILD(1-3)/Fever >100.5/KWON Apixaban 10 mg 12/28/20 22:00 12/29/20 22:13 Apixaban 5 Mg Tab PO 01/04/21 10:01 10 mg Q12HR GUSTAVO Administration Protocol Apixaban 5 mg 01/04/21 22:00 Apixaban 5 Mg Tab PO Q12HR [facility] Protocol Ascorbic Acid 500 mg 12/20/20 22:00 12/29/20 22:14 Ascorbic Acid 500 Mg Tab PO 500 mg BID GUSTAVO Administration Cholecalciferol 1,000 unit 12/21/20 10:00 12/29/20 10:00 Cholecalciferol (Vit D3) 1000 Unit (25 Mcg) Tab PO 1,000 unit QDAY GUSTAVO Administration Hydralazine HCl 10 mg 12/22/20 17:56 12/22/20 19:01 Hydralazine 20 Mg/1 Ml Inj IV 10 mg Q6H PRN Administration Hypertension Hydromorphone HCl 0.5 mg 12/20/20 12:52 Hydromorphone 1 Mg/1 Ml Inj IV Q23H PRN Pain , Severe (7-10) Insulin Glargine 30 units 12/29/20 22:00 12/29/20 22:16 Insulin Glargine 100 Units/Ml SUB-Q 30 units QHS GUSTAVO Administration Insulin Human Lispro 0 unit 12/28/20 11:30 12/30/20 08:29 Insulin Lispro 100 Unit/Ml SUB-Q 3 unit ACHS GUSTAVO Administration Protocol Methylprednisolone Sodium Succinate 80 mg 12/21/20 12:00 12/30/20 06:13 Methylprednisolone Sod Succinate 125 Mg/2 Ml Inj IV 12/31/20 06:01 80 mg Q8HR GUSTAVO Administration Metoprolol Tartrate 50 mg 12/21/20 16:00 12/29/20 22:14 Metoprolol Tartrate 50 Mg Tab PO 50 mg BID GUSTAVO Administration Ondansetron HCl 4 mg 12/20/20 12:52 Ondansetron 4 Mg/2 Ml Inj IV Q8H PRN Nausea And Vomiting Oxycodone/Acetaminophen 1 tab 12/20/20 12:52 12/22/20 22:12 Oxycodone /Acetaminophen 5-325mg Tab PO 1 tab Q12H PRN Administration Pain, Moderate (4-6) Sodium Chloride 10 ml 12/20/20 22:00 12/29/20 22:15 Sodium Chloride 0.9% 10 Ml Flush Syringe IV 10 ml BID GUSTAVO Administration Sodium Chloride 10 ml 12/20/20 12:52 Sodium Chloride 0.9% 10 Ml Flush Syringe IV PRN PRN LINE FLUSH Zinc Sulfate 220 mg 12/20/20 22:00 12/29/20 22:15 Zinc Sulfate 220 Mg Cap PO 220 mg BID GUSTAVO Administration Nutrition/Malnutrition Assess - Dietary Evaluation Nutrition/Malnutrition Findings: Nutrition Notes Start: 12/27/20 08:30 Freq: Status: Active Protocol: Document 12/27/20 08:30 GB (Rec: 12/27/20 08:48 GB [id number]) Nutrition Notes Need for Assessment generated from: LOS Initial or Follow up Assessment Current Diagnosis Respiratory Failure Other Pertinent Diagnosis COVID19+ Current Diet Cardiac Labs/Tests 12/27: BUN 53, glucose 242, ALT 80 Pertinent Medications Vitamin C, Vit D3, NaCl, Zn Sulfate, Height 6 ft 3 in Weight 162 kg [place] Body Weight (kg) 89.09 BMI 44.6 Intake Prior to Admission Good Weight change and time frame No reported weight changes Weight Status Morbidly Obese Subjective/Other Information Last BM 12/25 PO intake improved from fair to well per RN notes Percent of energy/protein needs met: 100% with po intake 75% or greater daily Burn Absent Trauma Absent GI Symptoms None Food Allergy No Skin Integrity/Comment No reported complications Current % PO Good (75-100%) Minimum of two criteria No #1 Nutrition Diagnosis No nutrition diagnosis at this time Etiology COVID10+ As Evidenced by Signs and Symptoms Medication regime, reported diagnosis Is patient on ventilator? No Is Patient Ambulatory and/or Out of Bed No REE-([facility]-confined to bed) 3081.612 Kcal/Kg value to use for calculation 15 Approximate Energy Requirements Using 2430 kcal/Kg Calculation Used for Recommendations Kcal/kg Additional Notes Protein: 0.6-0.8 g/kg @ 162k-129g Fluids: 1 ml/kcal or per MD Nutrition Intervention Change Diet Order: continue Nutrition Support: n/a Add Supplement/Snack (indicate name/kcal n/a /protein ) Goal #1 PO intake of meals to maintain at 75% or greater daily for LOS Goal #2 Weight to maintain within -3% current weight for LOS Follow-Up By: 01/03/21 Additional Comments f/u: po intake, weight
--- NOTE | 2020-12-30 09:33 | Progress Note ---
Assessment and Plan 1. Acute kidney injury: NAVJOT in the setting of Covid-19 infection and sepsis. Suspect ATN. Low FeNa. Renal US negative. Monitor renal function. Creatinine level is better. Avoid nephrotoxic agents. Meds dosage based on GFR. 2. FEN: Hyperkalemia, improved, monitor. A dose of IV Lasix. Monitor lytes and volume status. 3. Acute hypoxic resp failure, POA: 2/ Covid-19 PNA. Test positive for Covid-19. Per pt he received J&J vaccine in Mar 2020. On HFNC O2 and NRB. Followed by Pulmonary. 4. Covid-19 PNA, POA: Test positive for Covid-19. Per pt he received J&J vaccine in Mar 2020. On Solumedrol and Eliquis. S/p Remdesivir. Monitor. 5. Sepsis, POA: 04/26 Covid-19 pneumonia. Followed by ID. 6. HTN: Monitor BP. Adjust meds as needed. 7. DM / Elevated bl glu: A1C 7.2. Monitor. Subjective: Patient was seen and examined at the bedside. Examination: General appearance: well-developed, appears stated age, obese, on HFNC O2 and NRB HEENT: atraumatic Neck: trachea midline Respiratory: coarse breath sounds Heart: S1S2, regular, no murmur Abdomen: soft, obese, bowel sounds heard, NT Integumentary: no rash Neurologic: alert, moving extremities Ext: no edema Subjective Date of service: 12/30/20 Principal diagnosis: COVID-19 PNA Objective - Vital Signs Vital signs: Vital Signs - 12hr 12/29/20 12/29/20 12/29/20 22:00 22:14 22:31 Temperature Pulse Rate 117 H 116 H 115 H Pulse Rate [ 117 H From Monitor] Respiratory 42 H 37 H Rate Blood Pressure 155/92 155/92 155/92 O2 Sat by Pulse 90 91 Oximetry 12/29/20 12/29/20 12/30/20 23:00 23:31 00:00 Temperature 98.6 F Pulse Rate 111 H 107 H Pulse Rate [ From Monitor] Respiratory 19 25 H Rate Blood Pressure 146/82 146/82 O2 Sat by Pulse 98 99 Oximetry 12/30/20 12/30/20 12/30/20 00:01 00:10 00:31 Temperature Pulse Rate 109 H 107 H 92 H Pulse Rate [ From Monitor] Respiratory 41 H 27 H Rate Blood Pressure 170/94 170/94 O2 Sat by Pulse 91 95 Oximetry 12/30/20 12/30/20 12/30/20 01:01 01:10 01:31 Temperature Pulse Rate 87 94 H Pulse Rate [ From Monitor] Respiratory 27 H 32 H Rate Blood Pressure 133/78 133/78 O2 Sat by Pulse 92 96 99 Oximetry 12/30/20 12/30/20 12/30/20 02:00 03:00 04:00 Temperature 98.5 F Pulse Rate 87 78 88 Pulse Rate [ From Monitor] Respiratory 30 H 31 H 33 H Rate Blood Pressure 138/88 152/85 147/89 O2 Sat by Pulse 97 94 94 Oximetry 12/30/20 12/30/20 12/30/20 04:20 05:01 06:00 Temperature Pulse Rate 110 H 95 H Pulse Rate [ From Monitor] Respiratory 30 H 38 H Rate Blood Pressure 159/87 152/88 O2 Sat by Pulse 94 97 90 Oximetry 12/30/20 12/30/20 12/30/20 07:00 07:23 07:58 Temperature 98.4 F Pulse Rate 94 H Pulse Rate [ From Monitor] Respiratory 27 H Rate Blood Pressure 154/81 O2 Sat by Pulse 89 94 Oximetry 12/30/20 08:00 Temperature Pulse Rate 96 H Pulse Rate [ From Monitor] Respiratory 35 H Rate Blood Pressure 157/90 O2 Sat by Pulse 92 Oximetry - Lab 12/30/20 08:27 12/30/20 08:27 Most recent lab results ABG pH 7.446 (7.320-7.450) 12/23/20 13:06 ABG O2 Saturation 89.8 (0-100) 12/23/20 13:06 Calcium 8.5 mg/dL (8.4-10.2) 12/30/20 08:27 Urine Creatinine 134.1 mg/dL (0.1-20.0) H 12/23/20 00:40 Urine Sodium 26 mmol/L 12/23/20 00:40 Urine Total Protein 50 mg/dL (5-11.8) H 12/23/20 00:40 Medications & Allergies - Medications Allergies/Adverse Reactions: Allergies No Known Allergies Allergy (Verified 12/21/20 05:36) Home Medications: Home Medications Medication Instructions Recorded Confirmed Last Taken Type Losartan [Cozaar] 50 mg PO QDAY 12/20/20 12/20/20 12/20/20 07:00 History 50 Active Medications: Generic Name Dose Route Start Last Admin Trade Name Freq PRN Reason Stop Dose Admin Acetaminophen 650 mg 12/20/20 12:52 Acetaminophen 325 Mg Tab PO Q4H PRN Pain MILD(1-3)/Fever >100.5/KWON Apixaban 10 mg 12/28/20 22:00 12/29/20 22:13 Apixaban 5 Mg Tab PO 01/04/21 10:01 10 mg Q12HR GUSTAVO Administration Protocol Apixaban 5 mg 01/04/21 22:00 Apixaban 5 Mg Tab PO Q12HR GUSTAVO Protocol Ascorbic Acid 500 mg 12/20/20 22:00 12/29/20 22:14 Ascorbic Acid 500 Mg Tab PO 500 mg BID GUSTAVO Administration Cholecalciferol 1,000 unit 12/21/20 10:00 12/29/20 10:00 Cholecalciferol (Vit D3) 1000 Unit (25 Mcg) Tab PO 1,000 unit QDAY GUSTAVO Administration Hydralazine HCl 10 mg 12/22/20 17:56 12/22/20 19:01 Hydralazine 20 Mg/1 Ml Inj IV 10 mg Q6H PRN Administration Hypertension Hydromorphone HCl 0.5 mg 12/20/20 12:52 Hydromorphone 1 Mg/1 Ml Inj IV Q23H PRN Pain , Severe (7-10) Insulin Glargine 30 units 12/29/20 22:00 12/29/20 22:16 Insulin Glargine 100 Units/Ml SUB-Q 30 units QHS GUSTAVO Administration Insulin Human Lispro 0 unit 12/28/20 11:30 12/30/20 08:29 Insulin Lispro 100 Unit/Ml SUB-Q 3 unit ACHS GUSTAVO Administration Protocol Methylprednisolone Sodium Succinate 80 mg 12/21/20 12:00 12/30/20 06:13 Methylprednisolone Sod Succinate 125 Mg/2 Ml Inj IV 12/31/20 06:01 80 mg Q8HR GUSTAVO Administration Metoprolol Tartrate 50 mg 12/21/20 16:00 12/29/20 22:14 Metoprolol Tartrate 50 Mg Tab PO 50 mg BID GUSTAVO Administration Ondansetron HCl 4 mg 12/20/20 12:52 Ondansetron 4 Mg/2 Ml Inj IV Q8H PRN Nausea And Vomiting Oxycodone/Acetaminophen 1 tab 12/20/20 12:52 12/22/20 22:12 Oxycodone /Acetaminophen 5-325mg Tab PO 1 tab Q12H PRN Administration Pain, Moderate (4-6) Sodium Chloride 10 ml 12/20/20 22:00 12/29/20 22:15 Sodium Chloride 0.9% 10 Ml Flush Syringe IV 10 ml BID GUSTAVO Administration Sodium Chloride 10 ml 12/20/20 12:52 Sodium Chloride 0.9% 10 Ml Flush Syringe IV PRN PRN LINE FLUSH Zinc Sulfate 220 mg 12/20/20 22:00 12/29/20 22:15 Zinc Sulfate 220 Mg Cap PO 220 mg BID GUSTAVO Administration
[2020-12-30] MEDS: ASCORBIC ACID 500 MG TAB PO SCH ×2 (09:40→21:43)
[2020-12-30] MEDS: ZINC SULFATE 220 MG CAP PO SCH ×2 (09:40→21:43)
[2020-12-30] MEDS: APIXABAN 5 MG TAB PO SCH ×2 (09:41→21:43)
[2020-12-30] MEDS: CHOLECALCIFEROL (VIT D3) 1000 UNIT (25 mcg) TAB PO SCH (09:41)
[2020-12-30] MEDS: METOPROLOL TARTRATE 50 MG TAB PO SCH ×2 (09:41→22:15)
--- NOTE | 2020-12-30 11:59 | Progress Note ---
Assessment and Plan Cultures: SARS CoV2 PCR: positive A/P: 50/M with HTN, CHF, non-compliance, currently incarcerated admitted to the hospital with: #Sepsis, secondary to bilateral pneumonia due to COVID-19: severe disease. Admission labs: procalcitonin 1.45, D-dimer >10,000, CRP 5.2. CRP down to 1.1. #Acute hypoxic respiratory failure: on BiPAP-->HFNC 100%40L. #NAVJOT: Improving/Renally dose antibiotics. #Morbid obesity #Bilateral DVTs: Anticoagulation per primary Recs: Completed Remdesivir. Completed empiric antibiotics. Continue on steroids x 10 days Does not meet hospital criteria for Actemra based on CRP Leukocytosis likely secondary to high-dose steroids Home O2 eval prior to DC Dr. Arce covering this weekend. Dain Bergeron MD [facility] ([facility]) O: [phone] F: [phone] Subjective Date of service: 12/30/20 Principal diagnosis: COVID-19 PNA Interval history: Afebrile, white count 25.1. Remains on high flow nasal cannula with no nrebreather Objective - Exam Narrative Exam: Physical exam deferred to reduce risk of transmission of COVID-19. Please refer to primary team's note. - Constitutional Vitals: Vital Signs Temp Pulse Resp BP Pulse Ox 98.4 F 108 H 35 H 156/94 92 12/30/20 07:58 12/30/20 09:41 12/30/20 08:00 12/30/20 09:41 12/30/20 08:00 Temperature -Last 24 Hours Temperature 98.4 F Temperature 98.5 F Temperature 98.6 F Temperature 98.4 F Temperature 98.1 F - Labs CBC & Chem 7: 12/30/20 08:27 12/30/20 08:27 Labs: Abnormal lab results 12/29/20 12/29/20 12/30/20 Range/Units 15:43 21:47 07:26 WBC (4.5-11.0) K/mm3 RBC (3.65-5.03) M/mm3 BUN (9-20) mg/dL Glucose (75-100) mg/dL POC Glucose 268 H 250 H 193 H (70-105) mg/dL 10/11/1212/30/20 12/30/20 Range/Units 08:27 08:27 11:29 WBC 25.1 H (4.5-11.0) K/mm3 RBC 5.22 H (3.65-5.03) M/mm3 BUN 60 H (9-20) mg/dL Glucose 240 H (75-100) mg/dL POC Glucose 270 H (70-105) mg/dL
[2020-12-30] MEDS ORDERED: FUROSEMIDE 40 MG/4 ML INJ IV ONE (12:13)
--- NOTE | 2020-12-30 12:14 | Progress Note ---
Assessment and Plan 50 y/o obese male, COVID positive admitted with acute hypoxic respiratory failure, renal failure and elevated D-Dimer 12/30/20: Ordered another dose of lasix this am. Prone. Anticoagulation for clots. Guarded Prognosis 12/29/20: COntinue anticoagulation. Prone if possible. Awaiting COVID floor bed. Renal gave lasix this morning. 12/28/20: Reviewed IR note, appreciate their eval. Will start to wean steroids later this week. Continue anticoagulation. Prone if able. Ok with transfer back to floor as he has not required continuous bipap. Still would consider diuresis. 12/27/20: Need to remember that BNP was greater thann 6k on admit. Now has bilateral DVT's extensive. Spoke with IMS yesterday with plans to consult vas cular for evaluation already on therapeutic lovenox. Prone if possible. continue steroids. Guarded prognosis. 12/26/20: Lasix has not been given lately. Will hold off today as well. Follow up renal recs. Prone patient if able. Continue steroids. Guarded prognosis. 12/23/20: Lasix 40 again today. Suggest daily therapy at least for several days to help with volume overload. This could help with oxygenation. Steroids and Remdesivir. Prone if able. BP control. Guarded prognosis. 1. Ordered stat BNP 2. Agree with Echo, follow up read as it has been done per the chart 3. Agree with steroids right now 4. Was given lasix yesterday and renal function improved. Agree with continued therapy, and follow up renal recs 5. Remdesivir ordered by ID 6. Prone as tolerated during the day and sleep prone at night 7. Guarded prognosis. Subjective Date of service: 12/30/20 Principal diagnosis: COVID-19 PNA Interval history: Remains on Combo oxygenation therapy. Objective Vital Signs - 12hr 12/30/20 12/30/20 12/30/20 00:31 01:01 01:10 Temperature Pulse Rate 92 H 87 Respiratory 27 H 27 H Rate Blood Pressure 170/94 133/78 O2 Sat by Pulse 95 92 96 Oximetry 12/30/20 12/30/20 12/30/20 01:31 02:00 03:00 Temperature Pulse Rate 94 H 87 78 Respiratory 32 H 30 H 31 H Rate Blood Pressure 133/78 138/88 152/85 O2 Sat by Pulse 99 97 94 Oximetry 10/08/21 10/08/21 10/08/21 04:00 04:20 05:01 Temperature 98.5 F Pulse Rate 88 110 H Respiratory 33 H 30 H Rate Blood Pressure 147/89 159/87 O2 Sat by Pulse 94 94 97 Oximetry 12/30/20 12/30/20 12/30/20 06:00 07:00 07:23 Temperature Pulse Rate 95 H 94 H Respiratory 38 H 27 H Rate Blood Pressure 152/88 154/81 O2 Sat by Pulse 90 89 94 Oximetry 12/30/20 12/30/20 12/30/20 07:58 08:00 09:41 Temperature 98.4 F Pulse Rate 100 H 108 H Respiratory 35 H Rate Blood Pressure 157/90 156/94 O2 Sat by Pulse 92 Oximetry 12/30/20 12:00 Temperature 97.0 F L Pulse Rate Respiratory Rate Blood Pressure O2 Sat by Pulse Oximetry CBC and BMP: 12/30/20 08:27 12/30/20 08:27 ABG, PT/INR, D-dimer: ABG ABG pH 7.446 (7.320-7.450) 12/23/20 13:06 POC ABG pCO2 29.6 mmHg (32.0-48.0) L 12/23/20 13:06 POC ABG pO2 57.8 mmHg (83-108) L 12/23/20 13:06 POC ABG HCO3 19.9 12/23/20 13:06 ABG O2 Saturation 89.8 (0-100) 12/23/20 13:06 PT/INR, D-dimer PT 16.0 Sec. (12.2-14.9) H 12/28/20 15:00 INR 1.23 (0.87-1.13) H 12/28/20 15:00 D-Dimer 6017.45 ng/mlDDU (0-234) H 12/25/20 11:14 Abnormal lab findings: Abnormal Labs 12/20/20 12/20/20 12/20/20 11:31 11:31 11:31 WBC 16.5 H RBC 5.27 H Hgb Hct Seg Neuts % (Manual) 90.0 H Lymphocytes % (Manual) 5.0 L Nucleated RBC % Seg Neutrophils # Man 14.9 H Lymphocytes # (Manual) 0.8 L PT INR APTT D-Dimer > 59094 H POC ABG pCO2 POC ABG pO2 ABG Oxyhemoglobin ABG Potassium ABG Glucose Sodium 130 L Potassium Chloride 94.5 L Carbon Dioxide BUN 64 H Creatinine 2.6 H Glucose 154 H POC Glucose Hemoglobin A1c Calcium Ferritin AST ALT Lactate Dehydrogenase Troponin T C-Reactive Protein NT-Pro-B Natriuret Pep Albumin 3.5 L Triglycerides HDL Cholesterol PTH Intact Arterial Blood Glucose Urine WBC (Auto) Urine Creatinine Urine Total Protein Coronavirus (PCR) 12/20/20 12/21/20 12/21/20 11:31 06:10 06:10 WBC 20.1 H RBC 5.55 H Hgb 15.4 H Hct 47.3 H Seg Neuts % (Manual) 89.0 H Lymphocytes % (Manual) Nucleated RBC % 1.0 H Seg Neutrophils # Man 17.9 H Lymphocytes # (Manual) 0.0 L PT INR APTT D-Dimer POC ABG pCO2 POC ABG pO2 ABG Oxyhemoglobin ABG Potassium ABG Glucose Sodium 136 L Potassium Chloride Carbon Dioxide BUN 57 H Creatinine 1.8 H Glucose 193 H POC Glucose Hemoglobin A1c Calcium Ferritin AST ALT Lactate Dehydrogenase 10 L Troponin T 0.106 H* C-Reactive Protein 5.20 H NT-Pro-B Natriuret Pep Albumin Triglycerides 226 H HDL Cholesterol 31 L PTH Intact Arterial Blood Glucose Urine WBC (Auto) Urine Creatinine Urine Total Protein Coronavirus (PCR) 12/21/20 12/21/20 12/21/20 13:29 14:32 Unknown WBC RBC Hgb Hct Seg Neuts % (Manual) Lymphocytes % (Manual) Nucleated RBC % Seg Neutrophils # Man Lymphocytes # (Manual) PT INR APTT D-Dimer POC ABG pCO2 POC ABG pO2 ABG Oxyhemoglobin ABG Potassium ABG Glucose Sodium 134 L Potassium Chloride Carbon Dioxide BUN 57 H Creatinine 1.8 H Glucose 340 H POC Glucose Hemoglobin A1c Calcium 8.3 L Ferritin AST ALT Lactate Dehydrogenase Troponin T C-Reactive Protein NT-Pro-B Natriuret Pep 6191 H Albumin 3.3 L Triglycerides HDL Cholesterol PTH Intact Arterial Blood Glucose Urine WBC (Auto) Urine Creatinine Urine Total Protein Coronavirus (PCR) Positive A 12/22/20 12/22/20 12/22/20 05:56 05:56 17:21 WBC 26.6 H RBC 5.22 H Hgb Hct Seg Neuts % (Manual) Lymphocytes % (Manual) Nucleated RBC % Seg Neutrophils # Man Lymphocytes # (Manual) PT INR APTT D-Dimer POC ABG pCO2 POC ABG pO2 ABG Oxyhemoglobin ABG Potassium ABG Glucose Sodium Potassium Chloride Carbon Dioxide BUN 64 H Creatinine 2.0 H Glucose 227 H POC Glucose 188 H Hemoglobin A1c Calcium Ferritin AST ALT Lactate Dehydrogenase Troponin T C-Reactive Protein NT-Pro-B Natriuret Pep Albumin 3.4 L Triglycerides HDL Cholesterol PTH Intact Arterial Blood Glucose Urine WBC (Auto) Urine Creatinine Urine Total Protein Coronavirus (PCR) 12/23/20 12/23/20 12/23/20 00:40 00:40 05:15 WBC RBC Hgb Hct Seg Neuts % (Manual) Lymphocytes % (Manual) Nucleated RBC % Seg Neutrophils # Man Lymphocytes # (Manual) PT INR APTT D-Dimer POC ABG pCO2 POC ABG pO2 ABG Oxyhemoglobin ABG Potassium ABG Glucose Sodium Potassium 5.6 H Chloride Carbon Dioxide BUN 71 H Creatinine 1.8 H Glucose 225 H POC Glucose Hemoglobin A1c Calcium Ferritin AST 46 H ALT 83 H Lactate Dehydrogenase Troponin T C-Reactive Protein NT-Pro-B Natriuret Pep Albumin 3.6 L Triglycerides HDL Cholesterol PTH Intact Arterial Blood Glucose Urine WBC (Auto) 8.0 H Urine Creatinine 134.1 H Urine Total Protein 50 H Coronavirus (PCR) 12/23/20 12/23/20 12/23/20 05:15 05:15 11:47 WBC RBC Hgb Hct Seg Neuts % (Manual) Lymphocytes % (Manual) Nucleated RBC % Seg Neutrophils # Man Lymphocytes # (Manual) PT INR APTT D-Dimer POC ABG pCO2 POC ABG pO2 ABG Oxyhemoglobin ABG Potassium ABG Glucose Sodium Potassium Chloride Carbon Dioxide BUN Creatinine Glucose POC Glucose 257 H Hemoglobin A1c 7.2 H Calcium Ferritin AST ALT Lactate Dehydrogenase Troponin T C-Reactive Protein NT-Pro-B Natriuret Pep Albumin Triglycerides HDL Cholesterol PTH Intact 109.4 H Arterial Blood Glucose Urine WBC (Auto) Urine Creatinine Urine Total Protein Coronavirus (PCR) 12/23/20 12/23/20 12/24/20 13:06 16:41 00:02 WBC RBC Hgb Hct Seg Neuts % (Manual) Lymphocytes % (Manual) Nucleated RBC % Seg Neutrophils # Man Lymphocytes # (Manual) PT INR APTT D-Dimer POC ABG pCO2 29.6 L POC ABG pO2 57.8 L ABG Oxyhemoglobin 88.9 L ABG Potassium 4.7 H ABG Glucose 286 H Sodium Potassium Chloride Carbon Dioxide BUN Creatinine Glucose POC Glucose 199 H 213 H Hemoglobin A1c Calcium Ferritin AST ALT Lactate Dehydrogenase Troponin T C-Reactive Protein NT-Pro-B Natriuret Pep Albumin Triglycerides HDL Cholesterol PTH Intact Arterial Blood Glucose 286 H Urine WBC (Auto) Urine Creatinine Urine Total Protein Coronavirus (PCR) 12/24/20 12/24/20 12/24/20 04:56 05:17 12:03 WBC RBC Hgb Hct Seg Neuts % (Manual) Lymphocytes % (Manual) Nucleated RBC % Seg Neutrophils # Man Lymphocytes # (Manual) PT INR APTT D-Dimer POC ABG pCO2 POC ABG pO2 ABG Oxyhemoglobin ABG Potassium ABG Glucose Sodium Potassium 5.4 H Chloride Carbon Dioxide 18 L D BUN 74 H Creatinine 1.6 H Glucose 228 H POC Glucose 204 H 218 H Hemoglobin A1c Calcium Ferritin AST 44 H ALT 105 H Lactate Dehydrogenase Troponin T C-Reactive Protein NT-Pro-B Natriuret Pep Albumin 3.5 L Triglycerides HDL Cholesterol PTH Intact Arterial Blood Glucose Urine WBC (Auto) Urine Creatinine Urine Total Protein Coronavirus (PCR) 12/24/20 12/24/20 12/25/20 17:44 22:25 04:44 WBC RBC Hgb Hct Seg Neuts % (Manual) Lymphocytes % (Manual) Nucleated RBC % Seg Neutrophils # Man Lymphocytes # (Manual) PT INR APTT D-Dimer POC ABG pCO2 POC ABG pO2 ABG Oxyhemoglobin ABG Potassium ABG Glucose Sodium Potassium 5.5 H Chloride Carbon Dioxide BUN 58 H Creatinine Glucose 235 H POC Glucose 266 H 224 H Hemoglobin A1c Calcium Ferritin AST ALT Lactate Dehydrogenase Troponin T C-Reactive Protein NT-Pro-B Natriuret Pep Albumin Triglycerides HDL Cholesterol PTH Intact Arterial Blood Glucose Urine WBC (Auto) Urine Creatinine Urine Total Protein Coronavirus (PCR) 12/25/20 12/25/20 12/25/20 06:11 11:14 11:14 WBC RBC Hgb Hct Seg Neuts % (Manual) Lymphocytes % (Manual) Nucleated RBC % Seg Neutrophils # Man Lymphocytes # (Manual) PT INR APTT D-Dimer 6017.45 H POC ABG pCO2 POC ABG pO2 ABG Oxyhemoglobin ABG Potassium ABG Glucose Sodium Potassium Chloride Carbon Dioxide BUN Creatinine Glucose POC Glucose 191 H Hemoglobin A1c Calcium Ferritin 1385.0 H AST ALT Lactate Dehydrogenase Troponin T C-Reactive Protein NT-Pro-B Natriuret Pep Albumin Triglycerides HDL Cholesterol PTH Intact Arterial Blood Glucose Urine WBC (Auto) Urine Creatinine Urine Total Protein Coronavirus (PCR) 12/25/20 12/25/20 12/25/20 11:38 17:00 23:31 WBC RBC Hgb Hct Seg Neuts % (Manual) Lymphocytes % (Manual) Nucleated RBC % Seg Neutrophils # Man Lymphocytes # (Manual) PT INR APTT D-Dimer POC ABG pCO2 POC ABG pO2 ABG Oxyhemoglobin ABG Potassium ABG Glucose Sodium Potassium Chloride Carbon Dioxide BUN Creatinine Glucose POC Glucose 213 H 327 H 307 H Hemoglobin A1c Calcium Ferritin AST ALT Lactate Dehydrogenase Troponin T C-Reactive Protein NT-Pro-B Natriuret Pep Albumin Triglycerides HDL Cholesterol PTH Intact Arterial Blood Glucose Urine WBC (Auto) Urine Creatinine Urine Total Protein Coronavirus (PCR) 12/26/20 12/26/20 12/26/20 04:23 05:32 11:50 WBC RBC Hgb Hct Seg Neuts % (Manual) Lymphocytes % (Manual) Nucleated RBC % Seg Neutrophils # Man Lymphocytes # (Manual) PT INR APTT D-Dimer POC ABG pCO2 POC ABG pO2 ABG Oxyhemoglobin ABG Potassium ABG Glucose Sodium 146 H Potassium Chloride Carbon Dioxide BUN 49 H Creatinine Glucose 257 H POC Glucose 265 H 231 H Hemoglobin A1c Calcium Ferritin AST ALT Lactate Dehydrogenase Troponin T C-Reactive Protein NT-Pro-B Natriuret Pep Albumin Triglycerides HDL Cholesterol PTH Intact Arterial Blood Glucose Urine WBC (Auto) Urine Creatinine Urine Total Protein Coronavirus (PCR) 12/26/20 12/26/20 12/27/20 17:17 23:37 04:46 WBC RBC Hgb Hct Seg Neuts % (Manual) Lymphocytes % (Manual) Nucleated RBC % Seg Neutrophils # Man Lymphocytes # (Manual) PT INR APTT D-Dimer POC ABG pCO2 POC ABG pO2 ABG Oxyhemoglobin ABG Potassium ABG Glucose Sodium Potassium Chloride Carbon Dioxide BUN 53 H Creatinine Glucose 242 H POC Glucose 308 H 256 H Hemoglobin A1c Calcium Ferritin AST ALT 80 H Lactate Dehydrogenase Troponin T C-Reactive Protein NT-Pro-B Natriuret Pep Albumin 3.0 L Triglycerides HDL Cholesterol PTH Intact Arterial Blood Glucose Urine WBC (Auto) Urine Creatinine Urine Total Protein Coronavirus (PCR) 12/27/20 12/27/20 12/27/20 04:46 05:58 11:47 WBC 21.2 H RBC 5.17 H Hgb Hct Seg Neuts % (Manual) Lymphocytes % (Manual) Nucleated RBC % Seg Neutrophils # Man Lymphocytes # (Manual) PT INR APTT D-Dimer POC ABG pCO2 POC ABG pO2 ABG Oxyhemoglobin ABG Potassium ABG Glucose Sodium Potassium Chloride Carbon Dioxide BUN Creatinine Glucose POC Glucose 178 H 184 H Hemoglobin A1c Calcium Ferritin AST ALT Lactate Dehydrogenase Troponin T C-Reactive Protein NT-Pro-B Natriuret Pep Albumin Triglycerides HDL Cholesterol PTH Intact Arterial Blood Glucose Urine WBC (Auto) Urine Creatinine Urine Total Protein Coronavirus (PCR) 12/27/20 12/27/20 12/27/20 17:14 21:34 23:55 WBC RBC Hgb Hct Seg Neuts % (Manual) Lymphocytes % (Manual) Nucleated RBC % Seg Neutrophils # Man Lymphocytes # (Manual) PT INR APTT D-Dimer POC ABG pCO2 POC ABG pO2 ABG Oxyhemoglobin ABG Potassium ABG Glucose Sodium Potassium Chloride Carbon Dioxide BUN Creatinine Glucose POC Glucose 243 H 318 H 281 H Hemoglobin A1c Calcium Ferritin AST ALT Lactate Dehydrogenase Troponin T C-Reactive Protein NT-Pro-B Natriuret Pep Albumin Triglycerides HDL Cholesterol PTH Intact Arterial Blood Glucose Urine WBC (Auto) Urine Creatinine Urine Total Protein Coronavirus (PCR) 12/28/20 12/28/20 12/28/20 04:29 05:52 07:39 WBC RBC Hgb Hct Seg Neuts % (Manual) Lymphocytes % (Manual) Nucleated RBC % Seg Neutrophils # Man Lymphocytes # (Manual) PT INR APTT D-Dimer POC ABG pCO2 POC ABG pO2 ABG Oxyhemoglobin ABG Potassium ABG Glucose Sodium 135 L D Potassium 5.3 H D Chloride Carbon Dioxide 18 L D BUN 52 H Creatinine Glucose 280 H POC Glucose 267 H 261 H Hemoglobin A1c Calcium 7.9 L Ferritin AST ALT Lactate Dehydrogenase Troponin T C-Reactive Protein NT-Pro-B Natriuret Pep Albumin Triglycerides HDL Cholesterol PTH Intact Arterial Blood Glucose Urine WBC (Auto) Urine Creatinine Urine Total Protein Coronavirus (PCR) 12/28/20 12/28/20 12/28/20 11:56 15:00 15:00 WBC 19.0 H RBC 5.46 H Hgb 15.5 H Hct 47.9 H Seg Neuts % (Manual) Lymphocytes % (Manual) Nucleated RBC % Seg Neutrophils # Man Lymphocytes # (Manual) PT 16.0 H INR 1.23 H APTT 38.4 H D-Dimer POC ABG pCO2 POC ABG pO2 ABG Oxyhemoglobin ABG Potassium ABG Glucose Sodium Potassium Chloride Carbon Dioxide BUN Creatinine Glucose POC Glucose 271 H Hemoglobin A1c Calcium Ferritin AST ALT Lactate Dehydrogenase Troponin T C-Reactive Protein NT-Pro-B Natriuret Pep Albumin Triglycerides HDL Cholesterol PTH Intact Arterial Blood Glucose Urine WBC (Auto) Urine Creatinine Urine Total Protein Coronavirus (PCR) 12/28/20 12/28/20 12/29/20 16:32 22:05 04:39 WBC RBC Hgb Hct Seg Neuts % (Manual) Lymphocytes % (Manual) Nucleated RBC % Seg Neutrophils # Man Lymphocytes # (Manual) PT INR APTT D-Dimer POC ABG pCO2 POC ABG pO2 ABG Oxyhemoglobin ABG Potassium ABG Glucose Sodium Potassium 5.5 H Chloride Carbon Dioxide BUN 51 H Creatinine Glucose 257 H POC Glucose 246 H 324 H Hemoglobin A1c Calcium 8.1 L Ferritin AST ALT Lactate Dehydrogenase Troponin T C-Reactive Protein NT-Pro-B Natriuret Pep Albumin Triglycerides HDL Cholesterol PTH Intact Arterial Blood Glucose Urine WBC (Auto) Urine Creatinine Urine Total Protein Coronavirus (PCR) 12/29/20 12/29/20 12/29/20 07:16 11:41 15:43 WBC RBC Hgb Hct Seg Neuts % (Manual) Lymphocytes % (Manual) Nucleated RBC % Seg Neutrophils # Man Lymphocytes # (Manual) PT INR APTT D-Dimer POC ABG pCO2 POC ABG pO2 ABG Oxyhemoglobin ABG Potassium ABG Glucose Sodium Potassium Chloride Carbon Dioxide BUN Creatinine Glucose POC Glucose 243 H 250 H 268 H Hemoglobin A1c Calcium Ferritin AST ALT Lactate Dehydrogenase Troponin T C-Reactive Protein NT-Pro-B Natriuret Pep Albumin Triglycerides HDL Cholesterol PTH Intact Arterial Blood Glucose Urine WBC (Auto) Urine Creatinine Urine Total Protein Coronavirus (PCR) 12/29/20 12/30/20 12/30/20 21:47 07:26 08:27 WBC 25.1 H RBC 5.22 H Hgb Hct Seg Neuts % (Manual) Lymphocytes % (Manual) Nucleated RBC % Seg Neutrophils # Man Lymphocytes # (Manual) PT INR APTT D-Dimer POC ABG pCO2 POC ABG pO2 ABG Oxyhemoglobin ABG Potassium ABG Glucose Sodium Potassium Chloride Carbon Dioxide BUN Creatinine Glucose POC Glucose 250 H 193 H Hemoglobin A1c Calcium Ferritin AST ALT Lactate Dehydrogenase Troponin T C-Reactive Protein NT-Pro-B Natriuret Pep Albumin Triglycerides HDL Cholesterol PTH Intact Arterial Blood Glucose Urine WBC (Auto) Urine Creatinine Urine Total Protein Coronavirus (PCR) 12/30/20 12/30/20 08:27 11:29 WBC RBC Hgb Hct Seg Neuts % (Manual) Lymphocytes % (Manual) Nucleated RBC % Seg Neutrophils # Man Lymphocytes # (Manual) PT INR APTT D-Dimer POC ABG pCO2 POC ABG pO2 ABG Oxyhemoglobin ABG Potassium ABG Glucose Sodium Potassium Chloride Carbon Dioxide BUN 60 H Creatinine Glucose 240 H POC Glucose 270 H Hemoglobin A1c Calcium Ferritin AST ALT Lactate Dehydrogenase Troponin T C-Reactive Protein NT-Pro-B Natriuret Pep Albumin Triglycerides HDL Cholesterol PTH Intact Arterial Blood Glucose Urine WBC (Auto) Urine Creatinine Urine Total Protein Coronavirus (PCR) Allied health notes reviewed: nursing
--- NOTE | 2020-12-30 19:17 | Event Note ---
Date: 12/30/20 Nurse called and informed me that patient is hypoxemic on 40 L high flow nasal cannula oxygen/100% FiO2 in addition to 100% nonrebreather, Saturating between 85-86, I spoke to the respiratory therapist who is also concerned, informed Dr. Tan, recommended BiPAP, and if no improvement To call him, I conveyed the message to the nurse as well as the respiratory therapist. I spoke to the IMCU/ICU night charge nurse, and requested a bed to transfer the patient if his respiratory status does not improve. I will sign off to the covering hospitalist/dining car steward.
[2020-12-30 20:01] LABS: ABG Base Excess 0.8 mmol/L (-2.0-3.0); ABG HCO3 25.5 mmol/L (20.0-26.0); ABG Methemoglobin 0.5 % (0.0-1.5); ABG Oxygen Saturation 80.2 % (95.0-99.0); ABG PCO2 41.2 mm Hg; ABG PH 7.409 pH Units (7.350-7.450)
[2020-12-30] MEDS: INSULIN GLARGINE 100 UNITS/ML SUB-Q SCH (22:12)
[2020-12-31] MEDS: methylPREDNISolone Sod Succinate 125 MG/2 ML INJ IV SCH ×3 (06:43→21:17)
[2020-12-31 07:35] LABS: BUN/Creatinine Ratio 54; Blood Urea Nitrogen 65 mg/dL (9-20); Calcium 8.6 mg/dL (8.4-10.2); Hemolysis Index 43
[2020-12-31] MEDS: INSULIN LISPRO 100 UNIT/ML SUB-Q SCH ×4 (08:39→21:18)
--- NOTE | 2020-12-31 10:30 | Progress Note ---
Assessment and Plan 50 y/o obese male, COVID positive admitted with acute hypoxic respiratory failure, renal failure and elevated D-Dimer 12/31/20: Ordered lasix for now. If ok with renal will order another dose for later this evening. Patient has extensive bilateral DVT, very well could pass a PE but blood gas would not suggest. Also, ABG's are not helpful in this population as we know they are going to be severely hypoxic. Clinical situation determines intubation 99% of the time. Need to give patient the best chance possible to avoid intubation as the mortality rate with intubation and covid is extremely high. As long as sat can be maintained above 88% even with bipap, prefer to avoid intubation. Needs net negative fluid balance. Guarded prognosis. 12/30/20: Ordered another dose of lasix this am. Prone. Anticoagulation for clots. Guarded Prognosis 12/29/20: COntinue anticoagulation. Prone if possible. Awaiting COVID floor bed. Renal gave lasix this morning. 12/28/20: Reviewed IR note, appreciate their eval. Will start to wean steroids later this week. Continue anticoagulation. Prone if able. Ok with transfer back to floor as he has not required continuous bipap. Still would consider diuresis. 12/27/20: Need to remember that BNP was greater thann 6k on admit. Now has bilateral DVT's extensive. Spoke with IMS yesterday with plans to consult vascular for evaluation already on therapeutic lovenox. Prone if possible. continue steroids. Guarded prognosis. 12/26/20: Lasix has not been given lately. Will hold off today as well. Follow up renal recs. Prone patient if able. Continue steroids. Guarded prognosis. 12/23/20: Lasix 40 again today. Suggest daily therapy at least for several days to help with volume overload. This could help with oxygenation. Steroids and Remdesivir. Prone if able. BP control. Guarded prognosis. 1. Ordered stat BNP 2. Agree with Echo, follow up read as it has been done per the chart 3. Agree with steroids right now 4. Was given lasix yesterday and renal function improved. Agree with continued therapy, and follow up renal recs 5. Remdesivir ordered by ID 6. Prone as tolerated during the day and sleep prone at night 7. Guarded prognosis. Subjective Date of service: 12/31/20 Principal diagnosis: COVID-19 PNA Interval history: On transfer yesterday, patient became hypoxic, or should I say more hypoxic. Required bipap. Fluid status shows positive fluid balance yesterday as well. It doses appear he got lasix around noon. Still on bipap therapy Objective Vital Signs - 12hr 12/30/20 12/31/20 12/31/20 22:46 00:00 02:26 Temperature 98.5 F Pulse Rate 102 H Pulse Rate [ 110 H From Monitor] Respiratory 20 Rate Blood Pressure 141/86 O2 Sat by Pulse 86 94 86 Oximetry 12/31/20 12/31/20 02:27 04:32 Temperature 98.3 F Pulse Rate 107 H 96 H Pulse Rate [ From Monitor] Respiratory 29 H 18 Rate Blood Pressure 138/95 O2 Sat by Pulse 86 86 Oximetry CBC and BMP: 12/30/20 08:27 12/31/20 06:03 ABG, PT/INR, D-dimer: ABG ABG pH 7.409 pH Units (7.350-7.450) 12/30/20 19:50 POC ABG pCO2 29.6 mmHg (32.0-48.0) L 12/23/20 13:06 ABG pCO2 41.2 mm Hg 12/30/20 19:50 POC ABG pO2 57.8 mmHg (83-108) L 12/23/20 13:06 ABG pO2 46.0 mm Hg (80.0-90.0) L 12/30/20 19:50 POC ABG HCO3 19.9 12/23/20 13:06 ABG O2 Saturation 80.2 % (95.0-99.0) L 12/30/20 19:50 PT/INR, D-dimer PT 16.0 Sec. (12.2-14.9) H 12/28/20 15:00 INR 1.23 (0.87-1.13) H 12/28/20 15:00 D-Dimer 6017.45 ng/mlDDU (0-234) H 12/25/20 11:14 Abnormal lab findings: Abnormal Labs 12/20/20 12/20/20 12/20/20 11:31 11:31 11:31 WBC 16.5 H RBC 5.27 H Hgb Hct Seg Neuts % (Manual) 90.0 H Lymphocytes % (Manual) 5.0 L Nucleated RBC % Seg Neutrophils # Man 14.9 H Lymphocytes # (Manual) 0.8 L PT INR APTT D-Dimer > 36650 H POC ABG pCO2 POC ABG pO2 ABG pO2 ABG O2 Saturation ABG Oxyhemoglobin ABG Potassium ABG Glucose Oxyhemoglobin Sodium 130 L Potassium Chloride 94.5 L Carbon Dioxide BUN 64 H Creatinine 2.6 H Glucose 154 H POC Glucose Hemoglobin A1c Calcium Ferritin AST ALT Lactate Dehydrogenase Troponin T C-Reactive Protein NT-Pro-B Natriuret Pep Albumin 3.5 L Triglycerides HDL Cholesterol PTH Intact Arterial Blood Glucose Urine WBC (Auto) Urine Creatinine Urine Total Protein Coronavirus (PCR) 12/20/20 12/21/20 12/21/20 11:31 06:10 06:10 WBC 20.1 H RBC 5.55 H Hgb 15.4 H Hct 47.3 H Seg Neuts % (Manual) 89.0 H Lymphocytes % (Manual) Nucleated RBC % 1.0 H Seg Neutrophils # Man 17.9 H Lymphocytes # (Manual) 0.0 L PT INR APTT D-Dimer POC ABG pCO2 POC ABG pO2 ABG pO2 ABG O2 Saturation ABG Oxyhemoglobin ABG Potassium ABG Glucose Oxyhemoglobin Sodium 136 L Potassium Chloride Carbon Dioxide BUN 57 H Creatinine 1.8 H Glucose 193 H POC Glucose Hemoglobin A1c Calcium Ferritin AST ALT Lactate Dehydrogenase 10 L Troponin T 0.106 H* C-Reactive Protein 5.20 H NT-Pro-B Natriuret Pep Albumin Triglycerides 226 H HDL Cholesterol 31 L PTH Intact Arterial Blood Glucose Urine WBC (Auto) Urine Creatinine Urine Total Protein Coronavirus (PCR) 12/21/20 12/21/20 12/21/20 13:29 14:32 Unknown WBC RBC Hgb Hct Seg Neuts % (Manual) Lymphocytes % (Manual) Nucleated RBC % Seg Neutrophils # Man Lymphocytes # (Manual) PT INR APTT D-Dimer POC ABG pCO2 POC ABG pO2 ABG pO2 ABG O2 Saturation ABG Oxyhemoglobin ABG Potassium ABG Glucose Oxyhemoglobin Sodium 134 L Potassium Chloride Carbon Dioxide BUN 57 H Creatinine 1.8 H Glucose 340 H POC Glucose Hemoglobin A1c Calcium 8.3 L Ferritin AST ALT Lactate Dehydrogenase Troponin T C-Reactive Protein NT-Pro-B Natriuret Pep 6191 H Albumin 3.3 L Triglycerides HDL Cholesterol PTH Intact Arterial Blood Glucose Urine WBC (Auto) Urine Creatinine Urine Total Protein Coronavirus (PCR) Positive A 12/22/20 12/22/20 12/22/20 05:56 05:56 17:21 WBC 26.6 H RBC 5.22 H Hgb Hct Seg Neuts % (Manual) Lymphocytes % (Manual) Nucleated RBC % Seg Neutrophils # Man Lymphocytes # (Manual) PT INR APTT D-Dimer POC ABG pCO2 POC ABG pO2 ABG pO2 ABG O2 Saturation ABG Oxyhemoglobin ABG Potassium ABG Glucose Oxyhemoglobin Sodium Potassium Chloride Carbon Dioxide BUN 64 H Creatinine 2.0 H Glucose 227 H POC Glucose 188 H Hemoglobin A1c Calcium Ferritin AST ALT Lactate Dehydrogenase Troponin T C-Reactive Protein NT-Pro-B Natriuret Pep Albumin 3.4 L Triglycerides HDL Cholesterol PTH Intact Arterial Blood Glucose Urine WBC (Auto) Urine Creatinine Urine Total Protein Coronavirus (PCR) 12/23/20 12/23/20 12/23/20 00:40 00:40 05:15 WBC RBC Hgb Hct Seg Neuts % (Manual) Lymphocytes % (Manual) Nucleated RBC % Seg Neutrophils # Man Lymphocytes # (Manual) PT INR APTT D-Dimer POC ABG pCO2 POC ABG pO2 ABG pO2 ABG O2 Saturation ABG Oxyhemoglobin ABG Potassium ABG Glucose Oxyhemoglobin Sodium Potassium 5.6 H Chloride Carbon Dioxide BUN 71 H Creatinine 1.8 H Glucose 225 H POC Glucose Hemoglobin A1c Calcium Ferritin AST 46 H ALT 83 H Lactate Dehydrogenase Troponin T C-Reactive Protein NT-Pro-B Natriuret Pep Albumin 3.6 L Triglycerides HDL Cholesterol PTH Intact Arterial Blood Glucose Urine WBC (Auto) 8.0 H Urine Creatinine 134.1 H Urine Total Protein 50 H Coronavirus (PCR) 12/23/20 12/23/20 12/23/20 05:15 05:15 11:47 WBC RBC Hgb Hct Seg Neuts % (Manual) Lymphocytes % (Manual) Nucleated RBC % Seg Neutrophils # Man Lymphocytes # (Manual) PT INR APTT D-Dimer POC ABG pCO2 POC ABG pO2 ABG pO2 ABG O2 Saturation ABG Oxyhemoglobin ABG Potassium ABG Glucose Oxyhemoglobin Sodium Potassium Chloride Carbon Dioxide BUN Creatinine Glucose POC Glucose 257 H Hemoglobin A1c 7.2 H Calcium Ferritin AST ALT Lactate Dehydrogenase Troponin T C-Reactive Protein NT-Pro-B Natriuret Pep Albumin Triglycerides HDL Cholesterol PTH Intact 109.4 H Arterial Blood Glucose Urine WBC (Auto) Urine Creatinine Urine Total Protein Coronavirus (PCR) 12/23/20 12/23/20 12/24/20 13:06 16:41 00:02 WBC RBC Hgb Hct Seg Neuts % (Manual) Lymphocytes % (Manual) Nucleated RBC % Seg Neutrophils # Man Lymphocytes # (Manual) PT INR APTT D-Dimer POC ABG pCO2 29.6 L POC ABG pO2 57.8 L ABG pO2 ABG O2 Saturation ABG Oxyhemoglobin 88.9 L ABG Potassium 4.7 H ABG Glucose 286 H Oxyhemoglobin Sodium Potassium Chloride Carbon Dioxide BUN Creatinine Glucose POC Glucose 199 H 213 H Hemoglobin A1c Calcium Ferritin AST ALT Lactate Dehydrogenase Troponin T C-Reactive Protein NT-Pro-B Natriuret Pep Albumin Triglycerides HDL Cholesterol PTH Intact Arterial Blood Glucose 286 H Urine WBC (Auto) Urine Creatinine Urine Total Protein Coronavirus (PCR) 12/24/20 12/24/20 12/24/20 04:56 05:17 12:03 WBC RBC Hgb Hct Seg Neuts % (Manual) Lymphocytes % (Manual) Nucleated RBC % Seg Neutrophils # Man Lymphocytes # (Manual) PT INR APTT D-Dimer POC ABG pCO2 POC ABG pO2 ABG pO2 ABG O2 Saturation ABG Oxyhemoglobin ABG Potassium ABG Glucose Oxyhemoglobin Sodium Potassium 5.4 H Chloride Carbon Dioxide 18 L D BUN 74 H Creatinine 1.6 H Glucose 228 H POC Glucose 204 H 218 H Hemoglobin A1c Calcium Ferritin AST 44 H ALT 105 H Lactate Dehydrogenase Troponin T C-Reactive Protein NT-Pro-B Natriuret Pep Albumin 3.5 L Triglycerides HDL Cholesterol PTH Intact Arterial Blood Glucose Urine WBC (Auto) Urine Creatinine Urine Total Protein Coronavirus (PCR) 12/24/20 12/24/20 12/25/20 17:44 22:25 04:44 WBC RBC Hgb Hct Seg Neuts % (Manual) Lymphocytes % (Manual) Nucleated RBC % Seg Neutrophils # Man Lymphocytes # (Manual) PT INR APTT D-Dimer POC ABG pCO2 POC ABG pO2 ABG pO2 ABG O2 Saturation ABG Oxyhemoglobin ABG Potassium ABG Glucose Oxyhemoglobin Sodium Potassium 5.5 H Chloride Carbon Dioxide BUN 58 H Creatinine Glucose 235 H POC Glucose 266 H 224 H Hemoglobin A1c Calcium Ferritin AST ALT Lactate Dehydrogenase Troponin T C-Reactive Protein NT-Pro-B Natriuret Pep Albumin Triglycerides HDL Cholesterol PTH Intact Arterial Blood Glucose Urine WBC (Auto) Urine Creatinine Urine Total Protein Coronavirus (PCR) 12/25/20 12/25/20 12/25/20 06:11 11:14 11:14 WBC RBC Hgb Hct Seg Neuts % (Manual) Lymphocytes % (Manual) Nucleated RBC % Seg Neutrophils # Man Lymphocytes # (Manual) PT INR APTT D-Dimer 6017.45 H POC ABG pCO2 POC ABG pO2 ABG pO2 ABG O2 Saturation ABG Oxyhemoglobin ABG Potassium ABG Glucose Oxyhemoglobin Sodium Potassium Chloride Carbon Dioxide BUN Creatinine Glucose POC Glucose 191 H Hemoglobin A1c Calcium Ferritin 1385.0 H AST ALT Lactate Dehydrogenase Troponin T C-Reactive Protein NT-Pro-B Natriuret Pep Albumin Triglycerides HDL Cholesterol PTH Intact Arterial Blood Glucose Urine WBC (Auto) Urine Creatinine Urine Total Protein Coronavirus (PCR) 12/25/20 12/25/20 12/25/20 11:38 17:00 23:31 WBC RBC Hgb Hct Seg Neuts % (Manual) Lymphocytes % (Manual) Nucleated RBC % Seg Neutrophils # Man Lymphocytes # (Manual) PT INR APTT D-Dimer POC ABG pCO2 POC ABG pO2 ABG pO2 ABG O2 Saturation ABG Oxyhemoglobin ABG Potassium ABG Glucose Oxyhemoglobin Sodium Potassium Chloride Carbon Dioxide BUN Creatinine Glucose POC Glucose 213 H 327 H 307 H Hemoglobin A1c Calcium Ferritin AST ALT Lactate Dehydrogenase Troponin T C-Reactive Protein NT-Pro-B Natriuret Pep Albumin Triglycerides HDL Cholesterol PTH Intact Arterial Blood Glucose Urine WBC (Auto) Urine Creatinine Urine Total Protein Coronavirus (PCR) 12/26/20 12/26/20 12/26/20 04:23 05:32 11:50 WBC RBC Hgb Hct Seg Neuts % (Manual) Lymphocytes % (Manual) Nucleated RBC % Seg Neutrophils # Man Lymphocytes # (Manual) PT INR APTT D-Dimer POC ABG pCO2 POC ABG pO2 ABG pO2 ABG O2 Saturation ABG Oxyhemoglobin ABG Potassium ABG Glucose Oxyhemoglobin Sodium 146 H Potassium Chloride Carbon Dioxide BUN 49 H Creatinine Glucose 257 H POC Glucose 265 H 231 H Hemoglobin A1c Calcium Ferritin AST ALT Lactate Dehydrogenase Troponin T C-Reactive Protein NT-Pro-B Natriuret Pep Albumin Triglycerides HDL Cholesterol PTH Intact Arterial Blood Glucose Urine WBC (Auto) Urine Creatinine Urine Total Protein Coronavirus (PCR) 12/26/20 12/26/20 12/27/20 17:17 23:37 04:46 WBC RBC Hgb Hct Seg Neuts % (Manual) Lymphocytes % (Manual) Nucleated RBC % Seg Neutrophils # Man Lymphocytes # (Manual) PT INR APTT D-Dimer POC ABG pCO2 POC ABG pO2 ABG pO2 ABG O2 Saturation ABG Oxyhemoglobin ABG Potassium ABG Glucose Oxyhemoglobin Sodium Potassium Chloride Carbon Dioxide BUN 53 H Creatinine Glucose 242 H POC Glucose 308 H 256 H Hemoglobin A1c Calcium Ferritin AST ALT 80 H Lactate Dehydrogenase Troponin T C-Reactive Protein NT-Pro-B Natriuret Pep Albumin 3.0 L Triglycerides HDL Cholesterol PTH Intact Arterial Blood Glucose Urine WBC (Auto) Urine Creatinine Urine Total Protein Coronavirus (PCR) 12/27/20 12/27/20 12/27/20 04:46 05:58 11:47 WBC 21.2 H RBC 5.17 H Hgb Hct Seg Neuts % (Manual) Lymphocytes % (Manual) Nucleated RBC % Seg Neutrophils # Man Lymphocytes # (Manual) PT INR APTT D-Dimer POC ABG pCO2 POC ABG pO2 ABG pO2 ABG O2 Saturation ABG Oxyhemoglobin ABG Potassium ABG Glucose Oxyhemoglobin Sodium Potassium Chloride Carbon Dioxide BUN Creatinine Glucose POC Glucose 178 H 184 H Hemoglobin A1c Calcium Ferritin AST ALT Lactate Dehydrogenase Troponin T C-Reactive Protein NT-Pro-B Natriuret Pep Albumin Triglycerides HDL Cholesterol PTH Intact Arterial Blood Glucose Urine WBC (Auto) Urine Creatinine Urine Total Protein Coronavirus (PCR) 12/27/20 12/27/20 12/27/20 17:14 21:34 23:55 WBC RBC Hgb Hct Seg Neuts % (Manual) Lymphocytes % (Manual) Nucleated RBC % Seg Neutrophils # Man Lymphocytes # (Manual) PT INR APTT D-Dimer POC ABG pCO2 POC ABG pO2 ABG pO2 ABG O2 Saturation ABG Oxyhemoglobin ABG Potassium ABG Glucose Oxyhemoglobin Sodium Potassium Chloride Carbon Dioxide BUN Creatinine Glucose POC Glucose 243 H 318 H 281 H Hemoglobin A1c Calcium Ferritin AST ALT Lactate Dehydrogenase Troponin T C-Reactive Protein NT-Pro-B Natriuret Pep Albumin Triglycerides HDL Cholesterol PTH Intact Arterial Blood Glucose Urine WBC (Auto) Urine Creatinine Urine Total Protein Coronavirus (PCR) 12/28/20 12/28/20 12/28/20 04:29 05:52 07:39 WBC RBC Hgb Hct Seg Neuts % (Manual) Lymphocytes % (Manual) Nucleated RBC % Seg Neutrophils # Man Lymphocytes # (Manual) PT INR APTT D-Dimer POC ABG pCO2 POC ABG pO2 ABG pO2 ABG O2 Saturation ABG Oxyhemoglobin ABG Potassium ABG Glucose Oxyhemoglobin Sodium 135 L D Potassium 5.3 H D Chloride Carbon Dioxide 18 L D BUN 52 H Creatinine Glucose 280 H POC Glucose 267 H 261 H Hemoglobin A1c Calcium 7.9 L Ferritin AST ALT Lactate Dehydrogenase Troponin T C-Reactive Protein NT-Pro-B Natriuret Pep Albumin Triglycerides HDL Cholesterol PTH Intact Arterial Blood Glucose Urine WBC (Auto) Urine Creatinine Urine Total Protein Coronavirus (PCR) 12/28/20 12/28/20 12/28/20 11:56 15:00 15:00 WBC 19.0 H RBC 5.46 H Hgb 15.5 H Hct 47.9 H Seg Neuts % (Manual) Lymphocytes % (Manual) Nucleated RBC % Seg Neutrophils # Man Lymphocytes # (Manual) PT 16.0 H INR 1.23 H APTT 38.4 H D-Dimer POC ABG pCO2 POC ABG pO2 ABG pO2 ABG O2 Saturation ABG Oxyhemoglobin ABG Potassium ABG Glucose Oxyhemoglobin Sodium Potassium Chloride Carbon Dioxide BUN Creatinine Glucose POC Glucose 271 H Hemoglobin A1c Calcium Ferritin AST ALT Lactate Dehydrogenase Troponin T C-Reactive Protein NT-Pro-B Natriuret Pep Albumin Triglycerides HDL Cholesterol PTH Intact Arterial Blood Glucose Urine WBC (Auto) Urine Creatinine Urine Total Protein Coronavirus (PCR) 12/28/20 12/28/20 12/29/20 16:32 22:05 04:39 WBC RBC Hgb Hct Seg Neuts % (Manual) Lymphocytes % (Manual) Nucleated RBC % Seg Neutrophils # Man Lymphocytes # (Manual) PT INR APTT D-Dimer POC ABG pCO2 POC ABG pO2 ABG pO2 ABG O2 Saturation ABG Oxyhemoglobin ABG Potassium ABG Glucose Oxyhemoglobin Sodium Potassium 5.5 H Chloride Carbon Dioxide BUN 51 H Creatinine Glucose 257 H POC Glucose 246 H 324 H Hemoglobin A1c Calcium 8.1 L Ferritin AST ALT Lactate Dehydrogenase Troponin T C-Reactive Protein NT-Pro-B Natriuret Pep Albumin Triglycerides HDL Cholesterol PTH Intact Arterial Blood Glucose Urine WBC (Auto) Urine Creatinine Urine Total Protein Coronavirus (PCR) 12/29/20 12/29/20 12/29/20 07:16 11:41 15:43 WBC RBC Hgb Hct Seg Neuts % (Manual) Lymphocytes % (Manual) Nucleated RBC % Seg Neutrophils # Man Lymphocytes # (Manual) PT INR APTT D-Dimer POC ABG pCO2 POC ABG pO2 ABG pO2 ABG O2 Saturation ABG Oxyhemoglobin ABG Potassium ABG Glucose Oxyhemoglobin Sodium Potassium Chloride Carbon Dioxide BUN Creatinine Glucose POC Glucose 243 H 250 H 268 H Hemoglobin A1c Calcium Ferritin AST ALT Lactate Dehydrogenase Troponin T C-Reactive Protein NT-Pro-B Natriuret Pep Albumin Triglycerides HDL Cholesterol PTH Intact Arterial Blood Glucose Urine WBC (Auto) Urine Creatinine Urine Total Protein Coronavirus (PCR) 12/29/20 12/30/20 12/30/20 21:47 07:26 08:27 WBC 25.1 H RBC 5.22 H Hgb Hct Seg Neuts % (Manual) Lymphocytes % (Manual) Nucleated RBC % Seg Neutrophils # Man Lymphocytes # (Manual) PT INR APTT D-Dimer POC ABG pCO2 POC ABG pO2 ABG pO2 ABG O2 Saturation ABG Oxyhemoglobin ABG Potassium ABG Glucose Oxyhemoglobin Sodium Potassium Chloride Carbon Dioxide BUN Creatinine Glucose POC Glucose 250 H 193 H Hemoglobin A1c Calcium Ferritin AST ALT Lactate Dehydrogenase Troponin T C-Reactive Protein NT-Pro-B Natriuret Pep Albumin Triglycerides HDL Cholesterol PTH Intact Arterial Blood Glucose Urine WBC (Auto) Urine Creatinine Urine Total Protein Coronavirus (PCR) 12/30/20 12/30/20 12/30/20 08:27 11:29 19:50 WBC RBC Hgb Hct Seg Neuts % (Manual) Lymphocytes % (Manual) Nucleated RBC % Seg Neutrophils # Man Lymphocytes # (Manual) PT INR APTT D-Dimer POC ABG pCO2 POC ABG pO2 ABG pO2 46.0 L ABG O2 Saturation 80.2 L ABG Oxyhemoglobin ABG Potassium ABG Glucose Oxyhemoglobin 78.0 L Sodium Potassium Chloride Carbon Dioxide BUN 60 H Creatinine Glucose 240 H POC Glucose 270 H Hemoglobin A1c Calcium Ferritin AST ALT Lactate Dehydrogenase Troponin T C-Reactive Protein NT-Pro-B Natriuret Pep Albumin Triglycerides HDL Cholesterol PTH Intact Arterial Blood Glucose Urine WBC (Auto) Urine Creatinine Urine Total Protein Coronavirus (PCR) 12/30/20 12/31/20 12/31/20 21:44 06:03 07:21 WBC RBC Hgb Hct Seg Neuts % (Manual) Lymphocytes % (Manual) Nucleated RBC % Seg Neutrophils # Man Lymphocytes # (Manual) PT INR APTT D-Dimer POC ABG pCO2 POC ABG pO2 ABG pO2 ABG O2 Saturation ABG Oxyhemoglobin ABG Potassium ABG Glucose Oxyhemoglobin Sodium Potassium Chloride Carbon Dioxide BUN 65 H Creatinine Glucose 246 H POC Glucose 273 H 227 H Hemoglobin A1c Calcium Ferritin AST ALT Lactate Dehydrogenase Troponin T C-Reactive Protein NT-Pro-B Natriuret Pep Albumin Triglycerides HDL Cholesterol PTH Intact Arterial Blood Glucose Urine WBC (Auto) Urine Creatinine Urine Total Protein Coronavirus (PCR) Allied health notes reviewed: nursing
[2020-12-31] MEDS ORDERED: LORazepam 2 MG/ML VIAL IV PRN (10:57)
--- NOTE | 2020-12-31 10:58 | Progress Note ---
Assessment and Plan Assessment and plan: 50 YO Male with HTN, CHF, Obesity Hypoventilation Syndrome, Medication Noncompliance, Coronivirus Infection Diagnosed 1week ago presents to ED for evaluation. Patient reports "I cannot breathe". Patient states that he has experienced fatigue, shortness of breath, dry cough, decreased exercise tolerance, diminished sense of smell, diminished sense of taste over the past 1 week with persistent and worsening symptoms over the same timeframe. Patient is currently incarcerated and was seen by medical staff at the [facility] and was found to have a pulse oximetry in the 60s this a.m. EMS was notified and upon arrival the patient was found to be in respiratory distress and placed on supplemental oxygen via nonrebreather mask and subsequently transported to [facility] for further care and evaluation of the aforementioned symptoms. The patient was seen and evaluated in the emergency department. All lab and imaging studies reviewed. The patient was found to have a pulse oximetry of 78% on nonrebreathe r mask which is consistent with acute hypoxemic respiratory failure. Chest x- ray revealed bilateral pneumonia. Patient was admitted as PUI placed on isolation, subsequently found to have positive [place] PCR test, ID evaluated the patient, patient was managed with treatment per COVID-19 guidelines, had elevated D-dimers more than 10,000, lower extremity venous Doppler positive for bilateral DVT, started on full dose Lovenox every 12 hours, patient continues to be on high flow oxygen and BiPAP, transitioned to Eliquis today per protocol Patient is cleared by pulmonary to be transferred out of IMCU to telemetry. Last night patient went into severe respiratory distress and severe hypoxemia in spite of being on high flow nasal cannula oxygen 40 L 100%/FiO2 and on nonrebreather saturating in 80s, as patient refused BiPAP, patient was placed on BiPAP with significant improvement -- Acute respiratory failure with hypoxia Current Visit: Yes Status: Acute Plan to address problem: Strongly encouraged not to remove BiPAP Wean as tolerated, on high dose Solu-Medrol, pulmonary following Home O2 evaluation prior to discharge ---Hyperkalemia resolved Current Visit: Yes Status: Acute K5.5, calcium gluconate 1 g IV Kayexalate 30 g p.o. x1 Closely monitor electrolytes -- Coronavirus infection Current Visit: Yes Status: Acute Plan to address problem: Continue isolation, high flow oxygen oxygen/BiPAP Completed Remdesivir. Completed empiric antibiotics 5 days Continue high-dose IV steroids x 10 days Does not meet hospital criteria for Actemra based on CRP -- Obesity hypoventilation syndrome Current Visit: Yes Status: Acute Plan to address problem: Balanced diet, increase physical activity discharge, outpatient pulmonary follow-up for sleep study. Present on admission -- Pneumonia Current Visit: Yes Status: Acute Plan to address problem: Pneumonia protocol: Chest x-ray, CBC, CMP, supplemental oxygen, pulse oximetry, nebulizer therapy, blood culture. -- bilateral DVT on venous Doppler On full dose Lovenox Transition to Eliquis per protocol -- Acute kidney failure with vasomotor nephropathy; Present on admission. Resolved -- morbid obesity BMI; 44.4 Patient needs weight reduction when medically stable He would benefit by bariatric surgical evaluation as outpatient For weight reduction program when he is medically stable -- DVT prophylaxis Current Visit: Yes Status: Acute On Eliquis -- Advance care planning Current Visit: Yes Status: Acute Plan to address problem: Disease education conducted, care plan discussed, diagnoses discussed, prognosis discussed, patient counseled regarding coronavirus vaccination within 90 days of discharge. Patient is stable to be transferred out of [facility] to telemetry The high probability of a clinically significant, sudden or life threatening deterioration of the [CVS, renal, vascular, respiratory, ID ] system(s) required my full and direct attention, intervention and personal management. The aggregate critical care time was [40] minutes. This time is in addition to time spent performing reported procedures but includes the following: [x] Data Review and interpretation [x] Patient assessment and monitoring of vital signs [x] Documentation [x] Medication orders and management 12/21: Continue supportive care, wean oxygen as tolerated, Pulmonary, Nephrology, ID input. Renal improving. Continue steroids, defer Remedesivir to the ID. CPAP at night due to CARINA 12/22: Patient remains persistently hypoxic, going to be moving the patient down to the IMCU as he is satting 86% on nonrebreather and also high flow. Prognosis very poor. 12/23: : Continue IMCU. Continue reinforcement for the patient management plan. Continue steroids and remdesivir. Monitor blood sugar closely. Poor prognosis 12/24: Extensive discussion about the patient to be compliant with management plan. Noted hyperkalemia Kayexalate ordered already for the patient. 12/25: Patient remains with poor prognosis hyperkalemia persisted despite improving renal function. Follow-up Kayexalate has been given this morning. Blood sugar still elevated this could be steroid-induced versus underlying diabetes we will check an A1c and in the meantime we will add Lantus at nighttime for better coverage. 12/26: Patient seen and examined remains profoundly hypoxic. Blood sugar still controlled at this time. He did report a fall yesterday but denied any head trauma CT of the head reviewed negative. Counseling provided on compliance. He also has profound bilateral DVT patient is on full dose anticoagulation while is not clear if this developed here on anticoagulation it most likely has been present prior to presentation. Nevertheless we will consult vascular to further evaluate. Electrolytes appear to have been repleted we will recheck labs in a.m. due to profound leukocytosis. 12/27; severely hypoxemic on 40 L high flow nasal cannula oxygen 100% FiO2 Wean as tolerated, poor prognosis 12/28; patient remains on 40 L high flow NC oxygen and intermittent BiPAP 100% FiO2 Wean as tolerated, closely monitor Pulmonary cleared to transfer out of [facility] to telemetry We will also transition full dose anticoagulation from Lovenox to Eliquis per protocol 12/29: Hyperkalemia, corrected with calcium gluconate, Kayexalate Monitor electrolytes Patient remains on high flow nasal cannula oxygen 40 L/100% FiO2/96 O2 sats. 12/30; remains on high flow oxygen 40 L, will wean as tolerated Hyperkalemia resolved, increase Lantus dose to 30 units subcu twice a day 12/31; last night patient went into severe hypoxemia , patient was on 40 L of high flow nasal cannula oxygen and 100% nonrebreather Still was hypoxemic , discussed with finisher card tender Dr. Tan , advised to place on BiPAP, patient was on BiPAP in the past, however refuses to wear it. patient strongly encouraged to comply with BiPAP.and today at the time of my examination patient is on BiPAP saturating well at 98% Encouraged the patient not to remove the BiPAP. He verbalized understanding Yarn Skeins Examiner considering transfer the patient to [facility] for close monitoring History Interval history: I have seen and examined the patient at the bedside, patient's chart and medications reviewed Yesterday evening patient went into severe hypoxemia in spite of high flow nasal cannula oxygen 40 L/100% nonrebreather Yarn Skeins Examiner was contacted, recommended to place the patient on BiPAP [patient was advised BiPAP in the past however he is noncompliant refuses And does not want to wear] Patient is on BiPAP this morning, 100% FiO2, saturating 97 to 98% Hospitalist Physical - Constitutional Vitals: Temp Pulse Resp BP Pulse Ox 98.3 F 108 H 32 H 138/95 98 12/31/20 04:32 12/31/20 07:50 12/31/20 07:50 12/31/20 04:32 12/31/20 08:00 General appearance: Present: mild distress, well-nourished, obese (Morbidly obese), other (On BiPAP) - EENT Eyes: Present: PERRL, EOM intact - Neck Neck: Present: supple, normal ROM - Respiratory Respiratory effort: normal Respiratory: bilateral: diminished, rhonchi, negative: rales, wheezing - Cardiovascular Rhythm: regular Heart Sounds: Present: S1 & S2 - Extremities Extremities: no ischemia, No edema - Abdominal General gastrointestinal: soft, non-tender, non-distended, normal bowel sounds - Integumentary Integumentary: Present: clear, warm - Psychiatric Psychiatric: appropriate mood/affect, cooperative - Neurologic Neurologic: moves all extremities HEART Score - HEART Score Troponin: Troponin T < 0.010 ng/mL (0.00-0.029) 12/21/20 18:26 Results - Labs CBC & Chem 7: 12/30/20 08:27 12/31/20 06:03 Labs: Laboratory Last Values WBC 25.1 K/mm3 (4.5-11.0) H 12/30/20 08:27 RBC 5.22 M/mm3 (3.65-5.03) H 12/30/20 08:27 Hgb 14.4 gm/dl (11.8-15.2) 12/30/20 08:27 Hct 44.6 % (35.5-45.6) 12/30/20 08:27 MCV 86 fl (84-94) 12/30/20 08:27 MCH 28 pg (28-32) 12/30/20 08:27 MCHC 32 % (32-34) 12/30/20 08:27 RDW 14.3 % (13.2-15.2) 12/30/20 08:27 Plt Count 178 K/mm3 (140-440) 12/30/20 08:27 Add Manual Diff Complete 12/21/20 06:10 Total Counted 100 12/21/20 06:10 Seg Neuts % (Manual) 89.0 % (40.0-70.0) H 12/21/20 06:10 Band Neutrophils % 3.0 % 12/21/20 06:10 Lymphocytes % (Manual) 5.0 % (13.4-35.0) L 12/20/20 11:31 Reactive Lymphs % (Man) 2.0 % 12/21/20 06:10 Monocytes % (Manual) 1.0 % (0.0-7.3) 12/21/20 06:10 Myelocytes % 4.0 % 12/21/20 06:10 Blast Cells % 1.0 % 12/21/20 06:10 Nucleated RBC % 1.0 % (0.0-0.9) H 12/21/20 06:10 Seg Neutrophils # Man 17.9 K/mm3 (1.8-7.7) H 12/21/20 06:10 Band Neutrophils # 0.6 K/mm3 12/21/20 06:10 Lymphocytes # (Manual) 0.0 K/mm3 (1.2-5.4) L 12/21/20 06:10 Abs React Lymphs (Man) 0.4 K/mm3 12/21/20 06:10 Monocytes # (Manual) 0.2 K/mm3 (0.0-0.8) 12/21/20 06:10 Eosinophils # (Manual) 0.0 K/mm3 (0.0-0.4) 12/21/20 06:10 Basophils # (Manual) 0.0 K/mm3 (0.0-0.1) 12/21/20 06:10 Metamyelocytes # 0.0 K/mm3 12/21/20 06:10 Myelocytes # 0.8 K/mm3 12/21/20 06:10 Promyelocytes # 0.0 K/mm3 12/21/20 06:10 Blast Cells # 0.1 K/mm3 12/21/20 06:10 WBC Morphology Not Reportable 12/21/20 06:10 Hypersegmented Neuts Not Reportable 12/21/20 06:10 Hyposegmented Neuts Not Reportable 12/21/20 06:10 Hypogranular Neuts Not Reportable 12/21/20 06:10 Smudge Cells Not Reportable 12/21/20 06:10 Toxic Granulation Not Reportable 12/21/20 06:10 Toxic Vacuolation Not Reportable 12/21/20 06:10 Dohle Bodies Not Reportable 12/21/20 06:10 Pelger-Huet Anomaly Not Reportable 12/21/20 06:10 Chantel Rods Not Reportable 12/21/20 06:10 Platelet Estimate Consistent w auto 12/21/20 06:10 Clumped Platelets Not Reportable 12/21/20 06:10 Plt Clumps, EDTA Not Reportable 12/21/20 06:10 Large Platelets Not Reportable 12/21/20 06:10 Giant Platelets Not Reportable 12/21/20 06:10 Platelet Satelliting Not Reportable 12/21/20 06:10 Plt Morphology Comment Not Reportable 12/21/20 06:10 RBC Morphology Not Reportable 12/21/20 06:10 Dimorphic RBCs Not Reportable 12/21/20 06:10 Polychromasia Not Reportable 12/21/20 06:10 Hypochromasia Not Reportable 12/21/20 06:10 Poikilocytosis Not Reportable 12/21/20 06:10 Anisocytosis Not Reportable 12/21/20 06:10 Microcytosis Not Reportable 12/21/20 06:10 Macrocytosis Not Reportable 12/21/20 06:10 Spherocytes Rare 12/21/20 06:10 Pappenheimer Bodies Not Reportable 12/21/20 06:10 Sickle Cells Not Reportable 12/21/20 06:10 Target Cells Rare 12/21/20 06:10 Tear Drop Cells Not Reportable 12/21/20 06:10 Ovalocytes Not Reportable 12/21/20 06:10 Helmet Cells Not Reportable 12/21/20 06:10 Torres-Grafton Bodies Not Reportable 12/21/20 06:10 Media Rings Not Reportable 12/21/20 06:10 [place] Cells Not Reportable 12/21/20 06:10 Bite Cells Not Reportable 12/21/20 06:10 Crenated Cell Not Reportable 12/21/20 06:10 Elliptocytes Not Reportable 12/21/20 06:10 Acanthocytes (Spur) Not Reportable 12/21/20 06:10 Rouleaux Not Reportable 12/21/20 06:10 Hemoglobin C Crystals Not Reportable 12/21/20 06:10 Schistocytes Not Reportable 12/21/20 06:10 Malaria parasites Not Reportable 12/21/20 06:10 Andrew Bodies Not Reportable 12/21/20 06:10 Hem Pathologist Commnt No 12/21/20 06:10 PT 16.0 Sec. (12.2-14.9) H 12/28/20 15:00 INR 1.23 (0.87-1.13) H 12/28/20 15:00 APTT 38.4 Sec. (24.2-36.6) H 12/28/20 15:00 D-Dimer 6017.45 ng/mlDDU (0-234) H 12/25/20 11:14 ABG pH 7.409 pH Units (7.350-7.450) 12/30/20 19:50 POC ABG pCO2 29.6 mmHg (32.0-48.0) L 12/23/20 13:06 ABG pCO2 41.2 mm Hg 12/30/20 19:50 POC ABG pO2 57.8 mmHg (83-108) L 12/23/20 13:06 ABG pO2 46.0 mm Hg (80.0-90.0) L 12/30/20 19:50 POC ABG HCO3 19.9 12/23/20 13:06 ABG HCO3 25.5 mmol/L (20.0-26.0) 12/30/20 19:50 ABG O2 Saturation 80.2 % (95.0-99.0) L 12/30/20 19:50 ABG O2 Content 15.6 (0.0-44) 12/30/20 19:50 POC ABG Base Excess -2.8 12/23/20 13:06 ABG Base Excess 0.8 mmol/L (-2.0-3.0) 12/30/20 19:50 ABG Hemoglobin 14.3 gm/dl (14.0-18.0) 12/30/20 19:50 ABG Oxyhemoglobin 88.9 (94-98) L 12/23/20 13:06 ABG Carboxyhemoglobin 2.2 % (0.0-5.0) 12/30/20 19:50 ABG Methemoglobin 0.5 % (0.0-1.5) 12/30/20 19:50 ABG Sodium 140.6 mmol/L (136.0-145.0) 12/23/20 13:06 ABG Potassium 4.7 mmol/L (3.40-4.50) H 12/23/20 13:06 ABG Chloride 107.0 mmol/L (98-107) 12/23/20 13:06 ABG Glucose 286 mg/dL (65-95) H 12/23/20 13:06 Oxyhemoglobin 78.0 % (95.0-99.0) L 12/30/20 19:50 Carboxyhemoglobin 0.7 (0.5-1.5) 12/23/20 13:06 FiO2 100 % 12/30/20 19:50 FiO2 % 80.0 12/23/20 13:06 Sodium 137 mmol/L (137-145) 12/31/20 06:03 Potassium 4.6 mmol/L (3.6-5.0) 12/31/20 06:03 Chloride 99.5 mmol/L (98-107) 12/31/20 06:03 Carbon Dioxide 26 mmol/L (22-30) 12/31/20 06:03 Anion Gap 16 mmol/L 12/31/20 06:03 BUN 65 mg/dL (9-20) H 12/31/20 06:03 Creatinine 1.2 mg/dL (0.8-1.3) 12/31/20 06:03 Estimated GFR > 60 ml/min 12/31/20 06:03 BUN/Creatinine Ratio 54 % 12/31/20 06:03 Glucose 246 mg/dL (75-100) H 12/31/20 06:03 POC Glucose 227 mg/dL (70-105) H 12/31/20 07:21 Hemoglobin A1c 7.2 % (4-6) H 12/23/20 05:15 Calcium 8.6 mg/dL (8.4-10.2) 12/31/20 06:03 Ferritin 1385.0 ng/mL (30.0-300.0) H 12/25/20 11:14 Total Bilirubin 1.00 mg/dL (0.1-1.2) 12/27/20 04:46 AST 26 units/L (5-40) 12/27/20 04:46 ALT 80 units/L (7-56) H 12/27/20 04:46 Alkaline Phosphatase 52 units/L (35-129) 12/27/20 04:46 Lactate Dehydrogenase 10 units/L (91-180) L 12/20/20 11:31 Troponin T < 0.010 ng/mL (0.00-0.029) 12/21/20 18:26 C-Reactive Protein 0.60 mg/dL (0.00-1.30) 12/25/20 11:14 NT-Pro-B Natriuret Pep 6191 pg/mL (0-900) H 12/21/20 14:32 Total Protein 6.4 g/dL (6.3-8.2) 12/27/20 04:46 Albumin 3.0 g/dL (3.9-5) L 12/27/20 04:46 Albumin/Globulin Ratio 0.9 % 12/27/20 04:46 Triglycerides 226 mg/dL (2-149) H 12/20/20 11:31 Cholesterol 175 mg/dL (50-199) 12/20/20 11:31 LDL Cholesterol Direct 98 mg/dL (50-130) 12/20/20 11:31 HDL Cholesterol 31 mg/dL (40-59) L 12/20/20 11:31 Cholesterol/HDL Ratio 5.64 % 12/20/20 11:31 Procalcitonin 1.45 ng/mL (<0.15) 12/20/20 11:31 PTH Intact 109.4 pg/mL (15-65) H 12/23/20 05:15 Arterial Blood Glucose 286 mg/dL (65-95) H 12/23/20 13:06 Urine Color Straw (Yellow) 12/23/20 00:40 Urine Turbidity Clear (Clear) 12/23/20 00:40 Urine pH 5.0 (5.0-7.0) 12/23/20 00:40 Ur Specific [place] 1.030 (1.003-1.030) 12/23/20 00:40 Urine Protein 30 mg/dl mg/dL (Negative) 12/23/20 00:40 Urine Glucose (UA) Negative mg/dL (Negative) 12/23/20 00:40 Urine Ketones Negative mg/dL (Negative) 12/23/20 00:40 Urine Blood Negative (Negative) 12/23/20 00:40 Urine Nitrite Negative (Negative) 12/23/20 00:40 Ur Reducing Substances Not Reportable 12/23/20 00:40 Urine Bilirubin Negative (Negative) 12/23/20 00:40 Urine Ictotest Not Reportable 12/23/20 00:40 Urine Urobilinogen < 2.0 mg/dL (<2.0) 12/23/20 00:40 Ur Leukocyte Esterase Negative (Negative) 12/23/20 00:40 Urine WBC (Auto) 8.0 /HPF (0.0-6.0) H 12/23/20 00:40 Urine RBC (Auto) 1.0 /HPF (0.0-6.0) 12/23/20 00:40 U Epithel Cells (Auto) < 1.0 /HPF (0-13.0) 12/23/20 00:40 Hyaline Casts 1 /LPF 12/23/20 00:40 Urine Mucus Few /HPF 12/23/20 00:40 Urine Eosinophils None seen (None Seen) 12/23/20 00:40 Urine Creatinine 134.1 mg/dL (0.1-20.0) H 12/23/20 00:40 Protein/Creatinin Ratio 0.37 12/23/20 00:40 Urine Sodium 26 mmol/L 12/23/20 00:40 Urine Total Protein 50 mg/dL (5-11.8) H 12/23/20 00:40 Coronavirus (PCR) Positive (Negative) A 12/21/20 Unknown Murray/IV: Voiding Method Urinal Active Medications - Current Medications Current Medications: Generic Name Dose Route Start Last Admin Trade Name Freq PRN Reason Stop Dose Admin Acetaminophen 650 mg 12/20/20 12:52 Acetaminophen 325 Mg Tab PO Q4H PRN Pain MILD(1-3)/Fever >100.5/KWON Apixaban 10 mg 12/28/20 22:00 12/30/20 21:43 Apixaban 5 Mg Tab PO 01/04/21 10:01 10 mg Q12HR GUSTAVO Administration Protocol Ascorbic Acid 500 mg 12/20/20 22:00 12/30/20 21:43 Ascorbic Acid 500 Mg Tab PO 500 mg BID GUSTAVO Administration Cholecalciferol 1,000 unit 12/21/20 10:00 12/30/20 09:41 Cholecalciferol (Vit D3) 1000 Unit (25 Mcg) Tab PO 1,000 unit QDAY GUSTAVO Administration Furosemide 40 mg 12/31/20 11:00 Furosemide 40 Mg/4 Ml Inj IV 12/31/20 11:01 ONCE ONE Furosemide 40 mg 12/31/20 20:00 Furosemide 40 Mg/4 Ml Inj IV 12/31/20 20:01 ONCE ONE Hydralazine HCl 10 mg 12/22/20 17:56 12/22/20 19:01 Hydralazine 20 Mg/1 Ml Inj IV 10 mg Q6H PRN Administration Hypertension Hydromorphone HCl 0.5 mg 12/20/20 12:52 12/31/20 08:34 Hydromorphone 1 Mg/1 Ml Inj IV 0.5 mg Q23H PRN Administration Pain , Severe (7-10) Insulin Glargine 30 units 12/29/20 22:00 12/30/20 22:12 Insulin Glargine 100 Units/Ml SUB-Q 30 units QHS [facility] Administration Insulin Human Lispro 0 unit 12/28/20 11:30 12/31/20 08:39 Insulin Lispro 100 Unit/Ml SUB-Q 4 unit ACHS [facility] Administration Protocol Methylprednisolone Sodium Succinate 80 mg 12/31/20 14:00 Methylprednisolone Sod Succinate 125 Mg/2 Ml Inj IV Q8HR [facility] Ondansetron HCl 4 mg 12/20/20 12:52 Ondansetron 4 Mg/2 Ml Inj IV Q8H PRN Nausea And Vomiting Oxycodone/Acetaminophen 1 tab 12/20/20 12:52 12/22/20 22:12 Oxycodone /Acetaminophen 5-325mg Tab PO 1 tab Q12H PRN Administration Pain, Moderate (4-6) Sodium Chloride 10 ml 12/20/20 22:00 12/30/20 21:44 Sodium Chloride 0.9% 10 Ml Flush Syringe IV 10 ml BID GUSTAVO Administration Sodium Chloride 10 ml 12/20/20 12:52 Sodium Chloride 0.9% 10 Ml Flush Syringe IV PRN PRN LINE FLUSH Zinc Sulfate 220 mg 12/20/20 22:00 12/30/20 21:43 Zinc Sulfate 220 Mg Cap PO 220 mg BID GUSTAVO Administration Nutrition/Malnutrition Assess - Dietary Evaluation Nutrition/Malnutrition Findings: Nutrition Notes Start: 12/27/20 08:30 Freq: Status: Active Protocol: Document 12/27/20 08:30 GB (Rec: 12/27/20 08:48 GB [id number]) Nutrition Notes Need for Assessment generated from: LOS Initial or Follow up Assessment Current Diagnosis Respiratory Failure Other Pertinent Diagnosis COVID19+ Current Diet Cardiac Labs/Tests 12/27: BUN 53, glucose 242, ALT 80 Pertinent Medications Vitamin C, Vit D3, NaCl, Zn Sulfate, Height 6 ft 3 in Weight 162 kg [place] Body Weight (kg) 89.09 BMI 44.6 Intake Prior to Admission Good Weight change and time frame No reported weight changes Weight Status Morbidly Obese Subjective/Other Information Last BM 12/25 PO intake improved from fair to well per RN notes Percent of energy/protein needs met: 100% with po intake 75% or greater daily Burn Absent Trauma Absent GI Symptoms None Food Allergy No Skin Integrity/Comment No reported complications Current % PO Good (75-100%) Minimum of two criteria No #1 Nutrition Diagnosis No nutrition diagnosis at this time Etiology COVID10+ As Evidenced by Signs and Symptoms Medication regime, reported diagnosis Is patient on ventilator? No Is Patient Ambulatory and/or Out of Bed No REE-([facility]-confined to bed) 3081.612 Kcal/Kg value to use for calculation 15 Approximate Energy Requirements Using 2430 kcal/Kg Calculation Used for Recommendations Kcal/kg Additional Notes Protein: 0.6-0.8 g/kg @ 162k-129g Fluids: 1 ml/kcal or per MD Nutrition Intervention Change Diet Order: continue Nutrition Support: n/a Add Supplement/Snack (indicate name/kcal n/a /protein ) Goal #1 PO intake of meals to maintain at 75% or greater daily for LOS Goal #2 Weight to maintain within -3% current weight for LOS Follow-Up By: 01/03/21 Additional Comments f/u: po intake, weight
[2020-12-31] MEDS ORDERED: ENOXAPARIN 100 MG/1 ML INJ SUB-Q SCH (11:00)
[2020-12-31] MEDS ORDERED: FUROSEMIDE 40 MG/4 ML INJ IV ONE ×2 (11:00→20:00)
--- NOTE | 2020-12-31 11:00 | Event Note ---
Date: 12/31/20 Changed Metoprolo to IV and stopped eliquis and placed back on lovenox and added PRN ativan. Will bring patient back to step down. May need precedex. Not sure what happened in transfer as patient had been stable on just HFNC for several days and able to take PO without worsening hypoxemia.
[2020-12-31] MEDS: ASCORBIC ACID 500 MG TAB PO SCH ×2 (11:54→21:16)
[2020-12-31] MEDS: ZINC SULFATE 220 MG CAP PO SCH ×2 (11:55→21:16)
[2020-12-31] MEDS: CHOLECALCIFEROL (VIT D3) 1000 UNIT (25 mcg) TAB PO SCH (11:55)
[2020-12-31] MEDS: METOPROLOL TARTRATE 50 MG TAB PO SCH (11:58)
[2020-12-31] MEDS: APIXABAN 5 MG TAB PO SCH (11:58)
--- NOTE | 2020-12-31 13:37 | Progress Note ---
Assessment and Plan 1. Acute kidney injury: NAVJOT in the setting of Covid-19 infection and sepsis. Suspect ATN. Low FeNa. Renal US negative. Monitor renal function. Creatinine level is better. Avoid nephrotoxic agents. Meds dosage based on GFR. 2. FEN: Hyperkalemia, improved, monitor. A dose of IV Lasix. Monitor lytes and volume status. 3. Acute hypoxic resp failure, POA: 2/ Covid-19 PNA. Test positive for Covid-19. Per pt he received J&J vaccine in Mar 2020. On HFNC O2 and NRB. Followed by Pulmonary. 4. Covid-19 PNA, POA: Test positive for Covid-19. Per pt he received J&J vaccine in Mar 2020. On Solumedrol and Lovenox. S/p Remdesivir. Monitor. 5. Sepsis, POA: 04/26 Covid-19 pneumonia. Followed by ID. 6. HTN: Monitor BP. Adjust meds as needed. 7. DM / Elevated bl glu: A1C 7.2. Monitor. Subjective: Patient was seen and examined at the bedside. Examination: General appearance: well-developed, appears stated age, obese, on BIPAP HEENT: atraumatic Neck: trachea midline Respiratory: coarse breath sounds Heart: S1S2, regular, no murmur Abdomen: soft, obese, bowel sounds heard, NT Integumentary: no rash Neurologic: alert, moving extremities Ext: no edema Subjective Date of service: 12/31/20 Principal diagnosis: COVID-19 PNA Objective - Vital Signs Vital signs: Vital Signs - 12hr 12/31/20 12/31/20 12/31/20 02:26 02:27 04:32 Temperature 98.3 F Pulse Rate 107 H 96 H Respiratory 29 H 18 Rate Blood Pressure 138/95 O2 Sat by Pulse 86 86 86 Oximetry 12/31/20 12/31/20 07:50 08:00 Temperature Pulse Rate 108 H Respiratory 32 H Rate Blood Pressure O2 Sat by Pulse 98 98 Oximetry - Lab 01/01/21 06:02 01/02/21 06:36 Most recent lab results ABG pH 7.409 pH Units (7.350-7.450) 12/30/20 19:50 ABG pCO2 41.2 mm Hg 12/30/20 19:50 ABG pO2 46.0 mm Hg (80.0-90.0) L 12/30/20 19:50 ABG HCO3 25.5 mmol/L (20.0-26.0) 12/30/20 19:50 ABG O2 Saturation 80.2 % (95.0-99.0) L 12/30/20 19:50 Calcium 8.6 mg/dL (8.4-10.2) 12/31/20 06:03 Urine Creatinine 134.1 mg/dL (0.1-20.0) H 12/23/20 00:40 Urine Sodium 26 mmol/L 12/23/20 00:40 Urine Total Protein 50 mg/dL (5-11.8) H 12/23/20 00:40 Medications & Allergies - Medications Allergies/Adverse Reactions: Allergies No Known Allergies Allergy (Verified 12/21/20 05:36) Home Medications: Home Medications Medication Instructions Recorded Confirmed Last Taken Type Losartan [Cozaar] 50 mg PO QDAY 12/20/20 12/20/20 12/20/20 07:00 History 50 Active Medications: Generic Name Dose Route Start Last Admin Trade Name Freq PRN Reason Stop Dose Admin Acetaminophen 650 mg 12/20/20 12:52 Acetaminophen 325 Mg Tab PO Q4H PRN Pain MILD(1-3)/Fever >100.5/KWON Ascorbic Acid 500 mg 12/20/20 22:00 12/31/20 11:54 Ascorbic Acid 500 Mg Tab PO 500 mg BID GUSTAVO Administration Cholecalciferol 1,000 unit 12/21/20 10:00 12/31/20 11:55 Cholecalciferol (Vit D3) 1000 Unit (25 Mcg) Tab PO 1,000 unit QDAY GUSTAVO Administration Enoxaparin Sodium 150 mg 12/31/20 11:30 Enoxaparin 150 Mg/1 Ml Inj SUB-Q Q12HR GUSTAVO Furosemide 40 mg 12/31/20 20:00 Furosemide 40 Mg/4 Ml Inj IV 12/31/20 20:01 ONCE ONE Hydralazine HCl 10 mg 12/22/20 17:56 12/22/20 19:01 Hydralazine 20 Mg/1 Ml Inj IV 10 mg Q6H PRN Administration Hypertension Hydromorphone HCl 0.5 mg 12/20/20 12:52 12/31/20 08:34 Hydromorphone 1 Mg/1 Ml Inj IV 0.5 mg Q23H PRN Administration Pain , Severe (7-10) Insulin Glargine 30 units 12/29/20 22:00 12/30/20 22:12 Insulin Glargine 100 Units/Ml SUB-Q 30 units QHS GUSTAVO Administration Insulin Human Lispro 0 unit 12/28/20 11:30 12/31/20 12:09 Insulin Lispro 100 Unit/Ml SUB-Q 4 unit ACHS GUSTAVO Administration Protocol Lorazepam 1 mg 12/31/20 10:57 Lorazepam 2 Mg/Ml Vial IV Q4H PRN Agitation Methylprednisolone Sodium Succinate 80 mg 12/31/20 14:00 Methylprednisolone Sod Succinate 125 Mg/2 Ml Inj IV Q8HR GUSTAVO Metoprolol Tartrate 5 mg 12/31/20 12:00 Metoprolol Tartrate 5 Mg/5 Ml Inj IV Q6HR [facility] Ondansetron HCl 4 mg 12/20/20 12:52 Ondansetron 4 Mg/2 Ml Inj IV Q8H PRN Nausea And Vomiting Oxycodone/Acetaminophen 1 tab 12/20/20 12:52 12/22/20 22:12 Oxycodone /Acetaminophen 5-325mg Tab PO 1 tab Q12H PRN Administration Pain, Moderate (4-6) Sodium Chloride 10 ml 12/20/20 22:00 12/31/20 11:52 Sodium Chloride 0.9% 10 Ml Flush Syringe IV 10 ml BID GUSTAVO Administration Sodium Chloride 10 ml 12/20/20 12:52 Sodium Chloride 0.9% 10 Ml Flush Syringe IV PRN PRN LINE FLUSH Zinc Sulfate 220 mg 12/20/20 22:00 12/31/20 11:55 Zinc Sulfate 220 Mg Cap PO 220 mg BID GUSTAVO Administration
[2020-12-31] MEDS: METOPROLOL TARTRATE 5 MG/5 ML INJ IV SCH ×2 (13:41→18:26)
[2020-12-31] MEDS: ENOXAPARIN 150 MG/1 ML INJ SUB-Q SCH ×2 (13:42→21:16)
[2020-12-31] MEDS: INSULIN GLARGINE 100 UNITS/ML SUB-Q SCH (21:16)
[2021-01-01] MEDS: METOPROLOL TARTRATE 5 MG/5 ML INJ IV SCH ×5 (01:29→23:51)
[2021-01-01] MEDS: methylPREDNISolone Sod Succinate 125 MG/2 ML INJ IV SCH ×3 (06:19→22:50)
[2021-01-01 06:41] LABS: Hematocrit 42.3 % (35.5-45.6); Hemoglobin 13.5 gm/dl (11.8-15.2); Mean Corpuscular HGB Conc 32 % (32-34); Mean Corpuscular Volume 86 fl (84-94); Platelet Count 173 K/mm3 (140-440); Red Blood Count 4.91 M/mm3 (3.65-5.03)
[2021-01-01 07:05] LABS: BUN/Creatinine Ratio 52; Blood Urea Nitrogen 67 mg/dL (9-20); Calcium 8.6 mg/dL (8.4-10.2); Hemolysis Index 11
[2021-01-01] MEDS: INSULIN LISPRO 100 UNIT/ML SUB-Q SCH ×7 (08:00→22:53)
[2021-01-01] MEDS: ZINC SULFATE 220 MG CAP PO SCH ×2 (09:10→22:50)
[2021-01-01] MEDS: ASCORBIC ACID 500 MG TAB PO SCH ×2 (09:10→22:50)
[2021-01-01] MEDS: CHOLECALCIFEROL (VIT D3) 1000 UNIT (25 mcg) TAB PO SCH (09:10)
[2021-01-01] MEDS: ENOXAPARIN 150 MG/1 ML INJ SUB-Q SCH ×2 (09:40→22:49)
--- NOTE | 2021-01-01 10:59 | Progress Note ---
Assessment and Plan Assessment and plan: 50 YO Male with HTN, CHF, Obesity Hypoventilation Syndrome, Medication Noncompliance, Coronivirus Infection Diagnosed 1week ago presents to ED for evaluation. Patient reports "I cannot breathe". Patient states that he has experienced fatigue, shortness of breath, dry cough, decreased exercise tolerance, diminished sense of smell, diminished sense of taste over the past 1 week with persistent and worsening symptoms over the same timeframe. Patient is currently incarcerated and was seen by medical staff at the [facility] and was found to have a pulse oximetry in the 60s this a.m. EMS was notified and upon arrival the patient was found to be in respiratory distress and placed on supplemental oxygen via nonrebreather mask and subsequently transported to [facility] for further care and evaluation of the aforementioned symptoms. The patient was seen and evaluated in the emergency department. All lab and imaging studies reviewed. The patient was found to have a pulse oximetry of 78% on nonrebreathe r mask which is consistent with acute hypoxemic respiratory failure. Chest x- ray revealed bilateral pneumonia. Patient was admitted as PUI placed on isolation, subsequently found to have positive [place] PCR test, ID evaluated the patient, patient was managed with treatment per COVID-19 guidelines, had elevated D-dimers more than 10,000, lower extremity venous Doppler positive for bilateral DVT, started on full dose Lovenox every 12 hours, patient continues to be on high flow oxygen and BiPAP, transitioned to Eliquis today per protocol Patient is cleared by pulmonary to be transferred out of IMCU to telemetry. Last night patient went into severe respiratory distress and severe hypoxemia in spite of being on high flow nasal cannula oxygen 40 L 100%/FiO2 and on nonrebreather saturating in 80s, as patient refused BiPAP, patient was placed on BiPAP with significant improvement -- Acute respiratory failure with hypoxia Current Visit: Yes Status: Acute Plan to address problem: Strongly encouraged the patient not to remove BiPAP Wean as tolerated, on high dose Solu-Medrol, pulmonary following Home O2 evaluation prior to discharge ---Hyperkalemia resolved Current Visit: Yes Status: Acute K5.5, calcium gluconate 1 g IV Kayexalate 30 g p.o. x1 Closely monitor electrolytes -- Coronavirus infection Current Visit: Yes Status: Acute Plan to address problem: Continue isolation, high flow oxygen oxygen/BiPAP Completed Remdesivir. Completed empiric antibiotics 5 days Continue high-dose IV steroids x 10 days Does not meet hospital criteria for Actemra based on CRP -- Obesity hypoventilation syndrome Current Visit: Yes Status: Acute Plan to address problem: Balanced diet, increase physical activity discharge, outpatient pulmonary follow-up for sleep study. Present on admission -- Pneumonia Current Visit: Yes Status: Acute Completed antibiotics, procalcitonin was high -- bilateral DVT on venous Doppler On full dose Lovenox Not stable to go for CTA/V/Q to rule out PE -- Acute kidney failure with vasomotor nephropathy; Present on admission. Resolved -- morbid obesity BMI; 44.4 Patient needs weight reduction when medically stable He would benefit by bariatric surgical evaluation as outpatient For weight reduction program when he is medically stable -- DVT prophylaxis Current Visit: Yes Status: Acute On Eliquis -- Advance care planning Current Visit: Yes Status: Acute Plan to address problem: Disease education conducted, care plan discussed, diagnoses discussed, prognosis discussed, patient counseled regarding coronavirus vaccination within 90 days of discharge. Continue monitoring in MICU The high probability of a clinically significant, sudden or life threatening deterioration of the [CVS, renal, vascular, respiratory, ID ] system(s) required my full and direct attention, intervention and personal management. The aggregate critical care time was [45] minutes. This time is in addition to time spent performing reported procedures but includes the following: [x] Data Review and interpretation [x] Patient assessment and monitoring of vital signs [x] Documentation [x] Medication orders and management 12/21: Continue supportive care, wean oxygen as tolerated, Pulmonary, Nephrology, ID input. Renal improving. Continue steroids, defer Remedesivir to the ID. CPAP at night due to [place] 12/22: Patient remains persistently hypoxic, going to be moving the patient down to the IMCU as he is satting 86% on nonrebreather and also high flow. Prognosis very poor. 12/23: : Continue IMCU. Continue reinforcement for the patient management plan. Continue steroids and remdesivir. Monitor blood sugar closely. Poor prognosis 12/24: Extensive discussion about the patient to be compliant with management plan. Noted hyperkalemia Kayexalate ordered already for the patient. 12/25: Patient remains with poor prognosis hyperkalemia persisted despite improving renal function. Follow-up Kayexalate has been given this morning. Blood sugar still elevated this could be steroid-induced versus underlying diabetes we will check an A1c and in the meantime we will add Lantus at [facility] ttime for better coverage. 12/26: Patient seen and examined remains profoundly hypoxic. Blood sugar still controlled at this time. He did report a fall yesterday but denied any head trauma CT of the head reviewed negative. Counseling provided on compliance. He also has profound bilateral DVT patient is on full dose anticoagulation while is not clear if this developed here on anticoagulation it most likely has been present prior to presentation. Nevertheless we will consult vascular to further evaluate. Electrolytes appear to have been repleted we will recheck labs in a.m. due to profound leukocytosis. 12/27; severely hypoxemic on 40 L high flow nasal cannula oxygen 100% FiO2 Wean as tolerated, poor prognosis 12/28; patient remains on 40 L high flow NC oxygen and intermittent BiPAP 100% FiO2 Wean as tolerated, closely monitor Pulmonary cleared to transfer out of [facility] to telemetry We will also transition full dose anticoagulation from Lovenox to Eliquis per protocol 12/29: Hyperkalemia, corrected with calcium gluconate, Kayexalate Monitor electrolytes Patient remains on high flow nasal cannula oxygen 40 L/100% FiO2/96 O2 sats. 12/30; remains on high flow oxygen 40 L, will wean as tolerated Hyperkalemia resolved, increase Lantus dose to 30 units subcu twice a day 12/31; last night patient went into severe hypoxemia , patient was on 40 L of high flow nasal cannula oxygen and 100% nonrebreather Still was hypoxemic , discussed with registered dental assistant rda Dr. Tan , advised to place on BiPAP, patient was on BiPAP in the past, however refuses to wear it. patient strongly encouraged to comply with BiPAP.and today at the time of my examination patient is on BiPAP saturating well at 98% Encouraged the patient not to remove the BiPAP. He verbalized understanding Hr Intern considering transfer the patient to [facility] for close monitoring 01/01; patient is saturating well on BiPAP 96 to 97%, however is trying to remove it Strongly encouraged him to comply with BiPAP, also informed him the dangers of removing the BiPAP. History Interval history: I have seen and examined the patient at the bedside this morning Patient's chart and medications reviewed Patient feels slightly better, saturating well on BiPAP However patient says he does not feel comfortable with BiPAP Complains of generalized weakness Hospitalist Physical - Constitutional Vitals: Temp Pulse Resp BP Pulse Ox 99 F 104 H 15 146/85 66 L 12/31/20 16:30 01/01/21 06:19 01/01/21 06:00 01/01/21 06:19 01/01/21 06:00 General appearance: Present: mild distress, well-nourished, obese (Morbidly obese), other (On BiPAP) - EENT Eyes: Present: PERRL, EOM intact - Neck Neck: Present: supple, normal ROM - Respiratory Respiratory effort: normal Respiratory: bilateral: diminished, rhonchi, negative: rales, wheezing - Cardiovascular Rhythm: regular Heart Sounds: Present: S1 & S2 - Extremities Extremities: no ischemia, No edema - Abdominal General gastrointestinal: soft, non-tender, non-distended, normal bowel sounds - Integumentary Integumentary: Present: clear, warm - Psychiatric Psychiatric: appropriate mood/affect, cooperative - Neurologic Neurologic: moves all extremities HEART Score - HEART Score Troponin: Troponin T < 0.010 ng/mL (0.00-0.029) 12/21/20 18:26 Results - Labs CBC & Chem 7: 01/01/21 06:02 01/01/21 06:02 Labs: Laboratory Last Values WBC 21.3 K/mm3 (4.5-11.0) H 01/01/21 06:02 RBC 4.91 M/mm3 (3.65-5.03) 01/01/21 06:02 Hgb 13.5 gm/dl (11.8-15.2) 01/01/21 06:02 Hct 42.3 % (35.5-45.6) 01/01/21 06:02 MCV 86 fl (84-94) 01/01/21 06:02 MCH 28 pg (28-32) 01/01/21 06:02 MCHC 32 % (32-34) 01/01/21 06:02 RDW 14.0 % (13.2-15.2) 01/01/21 06:02 Plt Count 173 K/mm3 (140-440) 01/01/21 06:02 Add Manual Diff Complete 12/21/20 06:10 Total Counted 100 12/21/20 06:10 Seg Neuts % (Manual) 89.0 % (40.0-70.0) H 12/21/20 06:10 Band Neutrophils % 3.0 % 12/21/20 06:10 Lymphocytes % (Manual) 5.0 % (13.4-35.0) L 12/20/20 11:31 Reactive Lymphs % (Man) 2.0 % 12/21/20 06:10 Monocytes % (Manual) 1.0 % (0.0-7.3) 12/21/20 06:10 Myelocytes % 4.0 % 12/21/20 06:10 Blast Cells % 1.0 % 12/21/20 06:10 Nucleated RBC % 1.0 % (0.0-0.9) H 12/21/20 06:10 Seg Neutrophils # Man 17.9 K/mm3 (1.8-7.7) H 12/21/20 06:10 Band Neutrophils # 0.6 K/mm3 12/21/20 06:10 Lymphocytes # (Manual) 0.0 K/mm3 (1.2-5.4) L 12/21/20 06:10 Abs React Lymphs (Man) 0.4 K/mm3 12/21/20 06:10 Monocytes # (Manual) 0.2 K/mm3 (0.0-0.8) 12/21/20 06:10 Eosinophils # (Manual) 0.0 K/mm3 (0.0-0.4) 12/21/20 06:10 Basophils # (Manual) 0.0 K/mm3 (0.0-0.1) 12/21/20 06:10 Metamyelocytes # 0.0 K/mm3 12/21/20 06:10 Myelocytes # 0.8 K/mm3 12/21/20 06:10 Promyelocytes # 0.0 K/mm3 12/21/20 06:10 Blast Cells # 0.1 K/mm3 12/21/20 06:10 WBC Morphology Not Reportable 12/21/20 06:10 Hypersegmented Neuts Not Reportable 12/21/20 06:10 Hyposegmented Neuts Not Reportable 12/21/20 06:10 Hypogranular Neuts Not Reportable 12/21/20 06:10 Smudge Cells Not Reportable 12/21/20 06:10 Toxic Granulation Not Reportable 12/21/20 06:10 Toxic Vacuolation Not Reportable 12/21/20 06:10 Dohle Bodies Not Reportable 12/21/20 06:10 Pelger-Huet Anomaly Not Reportable 12/21/20 06:10 Chantel Rods Not Reportable 12/21/20 06:10 Platelet Estimate Consistent w auto 12/21/20 06:10 Clumped Platelets Not Reportable 12/21/20 06:10 Plt Clumps, EDTA Not Reportable 12/21/20 06:10 Large Platelets Not Reportable 12/21/20 06:10 Giant Platelets Not Reportable 12/21/20 06:10 Platelet Satelliting Not Reportable 12/21/20 06:10 Plt Morphology Comment Not Reportable 12/21/20 06:10 RBC Morphology Not Reportable 12/21/20 06:10 Dimorphic RBCs Not Reportable 12/21/20 06:10 Polychromasia Not Reportable 12/21/20 06:10 Hypochromasia Not Reportable 12/21/20 06:10 Poikilocytosis Not Reportable 12/21/20 06:10 Anisocytosis Not Reportable 12/21/20 06:10 Microcytosis Not Reportable 12/21/20 06:10 Macrocytosis Not Reportable 12/21/20 06:10 Spherocytes Rare 12/21/20 06:10 Pappenheimer Bodies Not Reportable 12/21/20 06:10 Sickle Cells Not Reportable 12/21/20 06:10 Target Cells Rare 12/21/20 06:10 Tear Drop Cells Not Reportable 12/21/20 06:10 Ovalocytes Not Reportable 12/21/20 06:10 Helmet Cells Not Reportable 12/21/20 06:10 [place] Bodies Not Reportable 12/21/20 06:10 [place] Rings Not Reportable 12/21/20 06:10 [place] Cells Not Reportable 12/21/20 06:10 Bite Cells Not Reportable 12/21/20 06:10 Crenated Cell Not Reportable 12/21/20 06:10 Elliptocytes Not Reportable 12/21/20 06:10 Acanthocytes (Spur) Not Reportable 12/21/20 06:10 Rouleaux Not Reportable 12/21/20 06:10 Hemoglobin C Crystals Not Reportable 12/21/20 06:10 Schistocytes Not Reportable 12/21/20 06:10 Malaria parasites Not Reportable 12/21/20 06:10 Andrew Bodies Not Reportable 12/21/20 06:10 Hem Pathologist Commnt No 12/21/20 06:10 PT 16.0 Sec. (12.2-14.9) H 12/28/20 15:00 INR 1.23 (0.87-1.13) H 12/28/20 15:00 APTT 38.4 Sec. (24.2-36.6) H 12/28/20 15:00 D-Dimer 6017.45 ng/mlDDU (0-234) H 12/25/20 11:14 ABG pH 7.409 pH Units (7.350-7.450) 12/30/20 19:50 POC ABG pCO2 29.6 mmHg (32.0-48.0) L 12/23/20 13:06 ABG pCO2 41.2 mm Hg 12/30/20 19:50 POC ABG pO2 57.8 mmHg (83-108) L 12/23/20 13:06 ABG pO2 46.0 mm Hg (80.0-90.0) L 12/30/20 19:50 POC ABG HCO3 19.9 12/23/20 13:06 ABG HCO3 25.5 mmol/L (20.0-26.0) 12/30/20 19:50 ABG O2 Saturation 80.2 % (95.0-99.0) L 12/30/20 19:50 ABG O2 Content 15.6 (0.0-44) 12/30/20 19:50 POC ABG Base Excess -2.8 12/23/20 13:06 ABG Base Excess 0.8 mmol/L (-2.0-3.0) 12/30/20 19:50 ABG Hemoglobin 14.3 gm/dl (14.0-18.0) 12/30/20 19:50 ABG Oxyhemoglobin 88.9 (94-98) L 12/23/20 13:06 ABG Carboxyhemoglobin 2.2 % (0.0-5.0) 12/30/20 19:50 ABG Methemoglobin 0.5 % (0.0-1.5) 12/30/20 19:50 ABG Sodium 140.6 mmol/L (136.0-145.0) 12/23/20 13:06 ABG Potassium 4.7 mmol/L (3.40-4.50) H 12/23/20 13:06 ABG Chloride 107.0 mmol/L (98-107) 12/23/20 13:06 ABG Glucose 286 mg/dL (65-95) H 12/23/20 13:06 Oxyhemoglobin 78.0 % (95.0-99.0) L 12/30/20 19:50 Carboxyhemoglobin 0.7 (0.5-1.5) 12/23/20 13:06 FiO2 100 % 12/30/20 19:50 FiO2 % 80.0 12/23/20 13:06 Sodium 142 mmol/L (137-145) 01/01/21 06:02 Potassium 4.6 mmol/L (3.6-5.0) 01/01/21 06:02 Chloride 102.5 mmol/L (98-107) 01/01/21 06:02 Carbon Dioxide 28 mmol/L (22-30) 01/01/21 06:02 Anion Gap 16 mmol/L 01/01/21 06:02 BUN 67 mg/dL (9-20) H 01/01/21 06:02 Creatinine 1.3 mg/dL (0.8-1.3) 01/01/21 06:02 Estimated GFR > 60 ml/min 01/01/21 06:02 BUN/Creatinine Ratio 52 % 01/01/21 06:02 Glucose 256 mg/dL (75-100) H 01/01/21 06:02 POC Glucose 239 mg/dL (70-105) H 12/31/20 21:12 Hemoglobin A1c 7.2 % (4-6) H 12/23/20 05:15 Calcium 8.6 mg/dL (8.4-10.2) 01/01/21 06:02 Ferritin 1385.0 ng/mL (30.0-300.0) H 12/25/20 11:14 Total Bilirubin 1.00 mg/dL (0.1-1.2) 12/27/20 04:46 AST 26 units/L (5-40) 12/27/20 04:46 ALT 80 units/L (7-56) H 12/27/20 04:46 Alkaline Phosphatase 52 units/L (35-129) 12/27/20 04:46 Lactate Dehydrogenase 10 units/L (91-180) L 12/20/20 11:31 Troponin T < 0.010 ng/mL (0.00-0.029) 12/21/20 18:26 C-Reactive Protein 0.60 mg/dL (0.00-1.30) 12/25/20 11:14 NT-Pro-B Natriuret Pep 6191 pg/mL (0-900) H 12/21/20 14:32 Total Protein 6.4 g/dL (6.3-8.2) 12/27/20 04:46 Albumin 3.0 g/dL (3.9-5) L 12/27/20 04:46 Albumin/Globulin Ratio 0.9 % 12/27/20 04:46 Triglycerides 226 mg/dL (2-149) H 12/20/20 11:31 Cholesterol 175 mg/dL (50-199) 12/20/20 11:31 LDL Cholesterol Direct 98 mg/dL (50-130) 12/20/20 11:31 HDL Cholesterol 31 mg/dL (40-59) L 12/20/20 11:31 Cholesterol/HDL Ratio 5.64 % 12/20/20 11:31 Procalcitonin 1.45 ng/mL (<0.15) 12/20/20 11:31 PTH Intact 109.4 pg/mL (15-65) H 12/23/20 05:15 Arterial Blood Glucose 286 mg/dL (65-95) H 12/23/20 13:06 Urine Color Straw (Yellow) 12/23/20 00:40 Urine Turbidity Clear (Clear) 12/23/20 00:40 Urine pH 5.0 (5.0-7.0) 12/23/20 00:40 Ur Specific [place] 1.030 (1.003-1.030) 12/23/20 00:40 Urine Protein 30 mg/dl mg/dL (Negative) 12/23/20 00:40 Urine Glucose (UA) Negative mg/dL (Negative) 12/23/20 00:40 Urine Ketones Negative mg/dL (Negative) 12/23/20 00:40 Urine Blood Negative (Negative) 12/23/20 00:40 Urine Nitrite Negative (Negative) 12/23/20 00:40 Ur Reducing Substances Not Reportable 12/23/20 00:40 Urine Bilirubin Negative (Negative) 12/23/20 00:40 Urine Ictotest Not Reportable 12/23/20 00:40 Urine Urobilinogen < 2.0 mg/dL (<2.0) 12/23/20 00:40 Ur Leukocyte Esterase Negative (Negative) 12/23/20 00:40 Urine WBC (Auto) 8.0 /HPF (0.0-6.0) H 12/23/20 00:40 Urine RBC (Auto) 1.0 /HPF (0.0-6.0) 12/23/20 00:40 U Epithel Cells (Auto) < 1.0 /HPF (0-13.0) 12/23/20 00:40 Hyaline Casts 1 /LPF 12/23/20 00:40 Urine Mucus Few /HPF 12/23/20 00:40 Urine Eosinophils None seen (None Seen) 12/23/20 00:40 Urine Creatinine 134.1 mg/dL (0.1-20.0) H 12/23/20 00:40 Protein/Creatinin Ratio 0.37 12/23/20 00:40 Urine Sodium 26 mmol/L 12/23/20 00:40 Urine Total Protein 50 mg/dL (5-11.8) H 12/23/20 00:40 Coronavirus (PCR) Positive (Negative) A 12/21/20 Unknown Murray/IV: Voiding Method Urinal Active Medications - Current Medications Current Medications: Generic Name Dose Route Start Last Admin Trade Name Brendanq PRN Reason Stop Dose Admin Acetaminophen 650 mg 12/20/20 12:52 Acetaminophen 325 Mg Tab PO Q4H PRN Pain MILD(1-3)/Fever >100.5/KWON Ascorbic Acid 500 mg 12/20/20 22:00 01/01/21 09:10 Ascorbic Acid 500 Mg Tab PO 500 mg BID GUSTAVO Administration Cholecalciferol 1,000 unit 12/21/20 10:00 01/01/21 09:10 Cholecalciferol (Vit D3) 1000 Unit (25 Mcg) Tab PO 1,000 unit QDAY GUSTAVO Administration Enoxaparin Sodium 150 mg 12/31/20 11:30 01/01/21 09:40 Enoxaparin 150 Mg/1 Ml Inj SUB-Q 150 mg Q12HR GUSTAVO Administration Hydralazine HCl 10 mg 12/22/20 17:56 12/22/20 19:01 Hydralazine 20 Mg/1 Ml Inj IV 10 mg Q6H PRN Administration Hypertension Hydromorphone HCl 0.5 mg 12/20/20 12:52 12/31/20 08:34 Hydromorphone 1 Mg/1 Ml Inj IV 0.5 mg Q23H PRN Administration Pain , Severe (7-10) Insulin Glargine 34 units 12/31/20 19:33 12/31/20 21:16 Insulin Glargine 100 Units/Ml SUB-Q 34 units QHS GUSTAVO Administration Insulin Human Lispro 0 unit 12/28/20 11:30 12/31/20 21:18 Insulin Lispro 100 Unit/Ml SUB-Q 4 unit ACHS GUSTAVO Administration Protocol Insulin Human Lispro 8 unit 01/01/21 07:30 01/01/21 08:00 Insulin Lispro 100 Unit/Ml SUB-Q 8 unit AC GUSTAVO Administration Lorazepam 1 mg 12/31/20 10:57 Lorazepam 2 Mg/Ml Vial IV Q4H PRN Agitation Methylprednisolone Sodium Succinate 80 mg 12/31/20 14:00 01/01/21 06:19 Methylprednisolone Sod Succinate 125 Mg/2 Ml Inj IV 80 mg Q8HR GUSTAVO Administration Metoprolol Tartrate 5 mg 12/31/20 12:00 01/01/21 06:19 Metoprolol Tartrate 5 Mg/5 Ml Inj IV 5 mg Q6HR GUSTAVO Administration Ondansetron HCl 4 mg 12/20/20 12:52 Ondansetron 4 Mg/2 Ml Inj IV Q8H PRN Nausea And Vomiting Oxycodone/Acetaminophen 1 tab 12/20/20 12:52 12/22/20 22:12 Oxycodone /Acetaminophen 5-325mg Tab PO 1 tab Q12H PRN Administration Pain, Moderate (4-6) Sodium Chloride 10 ml 12/20/20 22:00 01/01/21 09:41 Sodium Chloride 0.9% 10 Ml Flush Syringe IV 10 ml BID GUSTAVO Administration Sodium Chloride 10 ml 12/20/20 12:52 Sodium Chloride 0.9% 10 Ml Flush Syringe IV PRN PRN LINE FLUSH Zinc Sulfate 220 mg 12/20/20 22:00 01/01/21 09:10 Zinc Sulfate 220 Mg Cap PO 220 mg BID GUSTAVO Administration Nutrition/Malnutrition Assess - Dietary Evaluation Nutrition/Malnutrition Findings: Nutrition Notes Start: 12/27/20 08:30 Freq: Status: Active Protocol: Document 12/27/20 08:30 GB (Rec: 12/27/20 08:48 GB [id number]) Nutrition Notes Need for Assessment generated from: LOS Initial or Follow up Assessment Current Diagnosis Respiratory Failure Other Pertinent Diagnosis COVID19+ Current Diet Cardiac Labs/Tests 12/27: BUN 53, glucose 242, ALT 80 Pertinent Medications Vitamin C, Vit D3, NaCl, Zn Sulfate, Height 6 ft 3 in Weight 162 kg [place] Body Weight (kg) 89.09 BMI 44.6 Intake Prior to Admission Good Weight change and time frame No reported weight changes Weight Status Morbidly Obese Subjective/Other Information Last BM 12/25 PO intake improved from fair to well per RN notes Percent of energy/protein needs met: 100% with po intake 75% or greater daily Burn Absent Trauma Absent GI Symptoms None Food Allergy No Skin Integrity/Comment No reported complications Current % PO Good (75-100%) Minimum of two criteria No #1 Nutrition Diagnosis No nutrition diagnosis at this time Etiology COVID10+ As Evidenced by Signs and Symptoms Medication regime, reported diagnosis Is patient on ventilator? No Is Patient Ambulatory and/or Out of Bed No REE-([facility]-confined to bed) 3081.612 Kcal/Kg value to use for calculation 15 Approximate Energy Requirements Using 2430 kcal/Kg Calculation Used for Recommendations Kcal/kg Additional Notes Protein: 0.6-0.8 g/kg @ 162k-129g Fluids: 1 ml/kcal or per MD Nutrition Intervention Change Diet Order: continue Nutrition Support: n/a Add Supplement/Snack (indicate name/kcal n/a /protein ) Goal #1 PO intake of meals to maintain at 75% or greater daily for LOS Goal #2 Weight to maintain within -3% current weight for LOS Follow-Up By: 01/03/21 Additional Comments f/u: po intake, weight
--- NOTE | 2021-01-01 11:37 | Progress Note ---
Assessment and Plan 1. Acute kidney injury: NAVJOT in the setting of Covid-19 infection and sepsis. Suspect ATN. Low FeNa. Renal US negative. Monitor renal function. Creatinine level is better with some fluctuation. Avoid nephrotoxic agents. Meds dosage based on GFR. 2. FEN: Hyperkalemia, improved, monitor. Monitor lytes and volume status. 3. Acute hypoxic resp failure, POA: 2/ Covid-19 PNA. Test positive for Covid-19. Per pt he received J&J vaccine in Mar 2020. On BIPAP. Followed by Pulmonary. 4. Covid-19 PNA, POA: Test positive for Covid-19. Per pt he received J&J vaccine in Mar 2020. On Solumedrol and Eliquis. S/p Remdesivir. Monitor. 5. Sepsis, POA: 04/26 Covid-19 pneumonia. Followed by ID. 6. HTN: Monitor BP. Adjust meds as needed. 7. DM / Elevated bl glu: A1C 7.2. Monitor. Will follow patient peripherally. Subjective: The patient was not examined today to limit exposure to Covid-19. However the examination findings from other providers noted. The current and previous medical records are reviewed in detail as are laboratory and imaging data reviewed when appropriate. Medications being given are also reviewed. In addition the case has been discussed with the attending hospitalist and the nurse when needed. New renal recommendations as above. Examination: Subjective Date of service: 01/01/21 Principal diagnosis: COVID-19 PNA Objective - Vital Signs Vital signs: Vital Signs - 12hr 01/01/21 01/01/21 01/01/21 00:00 01:00 01:29 Pulse Rate 116 H 111 H 116 H Pulse Rate [ 96 H From Monitor] Respiratory 32 H 14 Rate Blood Pressure 147/84 129/88 129/88 O2 Sat by Pulse 91 88 Oximetry 01/01/21 01/01/21 01/01/21 02:00 03:00 04:00 Pulse Rate 100 H 103 H 92 H Pulse Rate [ 94 H From Monitor] Respiratory 21 21 20 Rate Blood Pressure 132/90 131/84 131/80 O2 Sat by Pulse 80 L 89 95 Oximetry 01/01/21 01/01/21 01/01/21 05:00 06:00 06:19 Pulse Rate 96 H 113 H 104 H Pulse Rate [ From Monitor] Respiratory 17 15 Rate Blood Pressure 135/78 146/85 146/85 O2 Sat by Pulse 66 L Oximetry - Lab 01/01/21 06:02 01/01/21 06:02 Most recent lab results ABG pH 7.409 pH Units (7.350-7.450) 12/30/20 19:50 ABG pCO2 41.2 mm Hg 12/30/20 19:50 ABG pO2 46.0 mm Hg (80.0-90.0) L 12/30/20 19:50 ABG HCO3 25.5 mmol/L (20.0-26.0) 12/30/20 19:50 ABG O2 Saturation 80.2 % (95.0-99.0) L 12/30/20 19:50 Calcium 8.6 mg/dL (8.4-10.2) 01/01/21 06:02 Urine Creatinine 134.1 mg/dL (0.1-20.0) H 12/23/20 00:40 Urine Sodium 26 mmol/L 12/23/20 00:40 Urine Total Protein 50 mg/dL (5-11.8) H 12/23/20 00:40 Medications & Allergies - Medications Allergies/Adverse Reactions: Allergies No Known Allergies Allergy (Verified 12/21/20 05:36) Home Medications: Home Medications Medication Instructions Recorded Confirmed Last Taken Type Losartan [Cozaar] 50 mg PO QDAY 12/20/20 12/20/20 12/20/20 07:00 History 50 Active Medications: Generic Name Dose Route Start Last Admin Trade Name Freq PRN Reason Stop Dose Admin Acetaminophen 650 mg 12/20/20 12:52 Acetaminophen 325 Mg Tab PO Q4H PRN Pain MILD(1-3)/Fever >100.5/KWON Ascorbic Acid 500 mg 12/20/20 22:00 01/01/21 09:10 Ascorbic Acid 500 Mg Tab PO 500 mg BID GUSTAVO Administration Cholecalciferol 1,000 unit 12/21/20 10:00 01/01/21 09:10 Cholecalciferol (Vit D3) 1000 Unit (25 Mcg) Tab PO 1,000 unit QDAY GUSTAVO Administration Enoxaparin Sodium 150 mg 12/31/20 11:30 01/01/21 09:40 Enoxaparin 150 Mg/1 Ml Inj SUB-Q 150 mg Q12HR GUSTAVO Administration Hydralazine HCl 10 mg 12/22/20 17:56 12/22/20 19:01 Hydralazine 20 Mg/1 Ml Inj IV 10 mg Q6H PRN Administration Hypertension Hydromorphone HCl 0.5 mg 12/20/20 12:52 12/31/20 08:34 Hydromorphone 1 Mg/1 Ml Inj IV 0.5 mg Q23H PRN Administration Pain , Severe (7-10) Insulin Glargine 34 units 12/31/20 19:33 12/31/20 21:16 Insulin Glargine 100 Units/Ml SUB-Q 34 units QHS GUSTAVO Administration Insulin Human Lispro 0 unit 12/28/20 11:30 12/31/20 21:18 Insulin Lispro 100 Unit/Ml SUB-Q 4 unit ACHS GUSTAVO Administration Protocol Insulin Human Lispro 8 unit 01/01/21 07:30 01/01/21 08:00 Insulin Lispro 100 Unit/Ml SUB-Q 8 unit AC GUSTAVO Administration Lorazepam 1 mg 12/31/20 10:57 Lorazepam 2 Mg/Ml Vial IV Q4H PRN Agitation Methylprednisolone Sodium Succinate 80 mg 12/31/20 14:00 01/01/21 06:19 Methylprednisolone Sod Succinate 125 Mg/2 Ml Inj IV 80 mg Q8HR GUSTAVO Administration Metoprolol Tartrate 5 mg 12/31/20 12:00 01/01/21 06:19 Metoprolol Tartrate 5 Mg/5 Ml Inj IV 5 mg Q6HR GUSTAVO Administration Ondansetron HCl 4 mg 12/20/20 12:52 Ondansetron 4 Mg/2 Ml Inj IV Q8H PRN Nausea And Vomiting Oxycodone/Acetaminophen 1 tab 12/20/20 12:52 12/22/20 22:12 Oxycodone /Acetaminophen 5-325mg Tab PO 1 tab Q12H PRN Administration Pain, Moderate (4-6) Sodium Chloride 10 ml 12/20/20 22:00 01/01/21 09:41 Sodium Chloride 0.9% 10 Ml Flush Syringe IV 10 ml BID GUSTAVO Administration Sodium Chloride 10 ml 12/20/20 12:52 Sodium Chloride 0.9% 10 Ml Flush Syringe IV PRN PRN LINE FLUSH Zinc Sulfate 220 mg 12/20/20 22:00 01/01/21 09:10 Zinc Sulfate 220 Mg Cap PO 220 mg BID GUSTAVO Administration
--- NOTE | 2021-01-01 12:32 | Progress Note ---
Assessment and Plan 50 y/o obese male, COVID positive admitted with acute hypoxic respiratory failure, renal failure and elevated D-Dimer 12/23/20: Follow up renal recs. Cr stable but will hold on any further lasix therapy today until they make recs. Wean Bipap. Continue steroids. Anticoagulation. 12/31/20: Ordered lasix for now. If ok with renal will order another dose for later this evening. Patient has extensive bilateral DVT, very well could pass a PE but blood gas would not suggest. Also, ABG's are not helpful in this population as we know they are going to be severely hypoxic. Clinical situation determines intubation 99% of the time. Need to give patient the best chance possible to avoid intubation as the mortality rate with intubation and covid is extremely high. As long as sat can be maintained above 88% even with bipap, prefer to avoid intubation. Needs net negative fluid balance. Guarded prognosis. 12/30/20: Ordered another dose of lasix this am. Prone. Anticoagulation for clots. Guarded Prognosis 12/29/20: COntinue anticoagulation. Prone if possible. Awaiting COVID floor bed. Renal gave lasix this morning. 12/28/20: Reviewed IR note, appreciate their eval. Will start to wean steroids later this week. Continue anticoagulation. Prone if able. Ok with transfer back to floor as he has not required continuous bipap. Still would consider diuresis. 12/27/20: Need to remember that BNP was greater thann 6k on admit. Now has bilateral DVT's extensive. Spoke with IMS yesterday with plans to consult vascular for evaluation already on therapeutic lovenox. Prone if possible. continue steroids. Guarded prognosis. 12/26/20: Lasix has not been given lately. Will hold off today as well. Follow up renal recs. Prone patient if able. Continue steroids. Guarded prognosis. 12/23/20: Lasix 40 again today. Suggest daily therapy at least for several days to help with volume overload. This could help with oxygenation. Steroids and Remdesivir. Prone if able. BP control. Guarded prognosis. 1. Ordered stat BNP 2. Agree with Echo, follow up read as it has been done per the chart 3. Agree with steroids right now 4. Was given lasix yesterday and renal function improved. Agree with continued therapy, and follow up renal recs 5. Remdesivir ordered by ID 6. Prone as tolerated during the day and sleep prone at night 7. Guarded prognosis. Subjective Date of service: 01/01/21 Principal diagnosis: COVID-19 PNA Interval history: Still on bipap Objective Vital Signs - 12hr 01/01/21 01/01/21 01/01/21 01:00 01:29 02:00 Pulse Rate 111 H 116 H 100 H Pulse Rate [ From Monitor] Respiratory 14 21 Rate Blood Pressure 129/88 129/88 132/90 O2 Sat by Pulse 88 80 L Oximetry 01/01/21 01/01/21 01/01/21 03:00 04:00 05:00 Pulse Rate 103 H 92 H 96 H Pulse Rate [ 94 H From Monitor] Respiratory 21 20 17 Rate Blood Pressure 131/84 131/80 135/78 O2 Sat by Pulse 89 95 Oximetry 01/01/21 01/01/21 06:00 06:19 Pulse Rate 113 H 104 H Pulse Rate [ From Monitor] Respiratory 15 Rate Blood Pressure 146/85 146/85 O2 Sat by Pulse 66 L Oximetry CBC and BMP: 01/01/21 06:02 01/01/21 06:02 ABG, PT/INR, D-dimer: ABG ABG pH 7.409 pH Units (7.350-7.450) 12/30/20 19:50 POC ABG pCO2 29.6 mmHg (32.0-48.0) L 12/23/20 13:06 ABG pCO2 41.2 mm Hg 12/30/20 19:50 POC ABG pO2 57.8 mmHg (83-108) L 12/23/20 13:06 ABG pO2 46.0 mm Hg (80.0-90.0) L 12/30/20 19:50 POC ABG HCO3 19.9 12/23/20 13:06 ABG O2 Saturation 80.2 % (95.0-99.0) L 12/30/20 19:50 PT/INR, D-dimer PT 16.0 Sec. (12.2-14.9) H 12/28/20 15:00 INR 1.23 (0.87-1.13) H 12/28/20 15:00 D-Dimer 6017.45 ng/mlDDU (0-234) H 12/25/20 11:14 Abnormal lab findings: Abnormal Labs 12/20/20 12/20/20 12/20/20 11:31 11:31 11:31 WBC 16.5 H RBC 5.27 H Hgb Hct Seg Neuts % (Manual) 90.0 H Lymphocytes % (Manual) 5.0 L Nucleated RBC % Seg Neutrophils # Man 14.9 H Lymphocytes # (Manual) 0.8 L PT INR APTT D-Dimer > 26523 H POC ABG pCO2 POC ABG pO2 ABG pO2 ABG O2 Saturation ABG Oxyhemoglobin ABG Potassium ABG Glucose Oxyhemoglobin Sodium 130 L Potassium Chloride 94.5 L Carbon Dioxide BUN 64 H Creatinine 2.6 H Glucose 154 H POC Glucose Hemoglobin A1c Calcium Ferritin AST ALT Lactate Dehydrogenase Troponin T C-Reactive Protein NT-Pro-B Natriuret Pep Albumin 3.5 L Triglycerides HDL Cholesterol PTH Intact Arterial Blood Glucose Urine WBC (Auto) Urine Creatinine Urine Total Protein Coronavirus (PCR) 12/20/20 12/21/20 12/21/20 11:31 06:10 06:10 WBC 20.1 H RBC 5.55 H Hgb 15.4 H Hct 47.3 H Seg Neuts % (Manual) 89.0 H Lymphocytes % (Manual) Nucleated RBC % 1.0 H Seg Neutrophils # Man 17.9 H Lymphocytes # (Manual) 0.0 L PT INR APTT D-Dimer POC ABG pCO2 POC ABG pO2 ABG pO2 ABG O2 Saturation ABG Oxyhemoglobin ABG Potassium ABG Glucose Oxyhemoglobin Sodium 136 L Potassium Chloride Carbon Dioxide BUN 57 H Creatinine 1.8 H Glucose 193 H POC Glucose Hemoglobin A1c Calcium Ferritin AST ALT Lactate Dehydrogenase 10 L Troponin T 0.106 H* C-Reactive Protein 5.20 H NT-Pro-B Natriuret Pep Albumin Triglycerides 226 H HDL Cholesterol 31 L PTH Intact Arterial Blood Glucose Urine WBC (Auto) Urine Creatinine Urine Total Protein Coronavirus (PCR) 12/21/20 12/21/20 12/21/20 13:29 14:32 Unknown WBC RBC Hgb Hct Seg Neuts % (Manual) Lymphocytes % (Manual) Nucleated RBC % Seg Neutrophils # Man Lymphocytes # (Manual) PT INR APTT D-Dimer POC ABG pCO2 POC ABG pO2 ABG pO2 ABG O2 Saturation ABG Oxyhemoglobin ABG Potassium ABG Glucose Oxyhemoglobin Sodium 134 L Potassium Chloride Carbon Dioxide BUN 57 H Creatinine 1.8 H Glucose 340 H POC Glucose Hemoglobin A1c Calcium 8.3 L Ferritin AST ALT Lactate Dehydrogenase Troponin T C-Reactive Protein NT-Pro-B Natriuret Pep 6191 H Albumin 3.3 L Triglycerides HDL Cholesterol PTH Intact Arterial Blood Glucose Urine WBC (Auto) Urine Creatinine Urine Total Protein Coronavirus (PCR) Positive A 12/22/20 12/22/20 12/22/20 05:56 05:56 17:21 WBC 26.6 H RBC 5.22 H Hgb Hct Seg Neuts % (Manual) Lymphocytes % (Manual) Nucleated RBC % Seg Neutrophils # Man Lymphocytes # (Manual) PT INR APTT D-Dimer POC ABG pCO2 POC ABG pO2 ABG pO2 ABG O2 Saturation ABG Oxyhemoglobin ABG Potassium ABG Glucose Oxyhemoglobin Sodium Potassium Chloride Carbon Dioxide BUN 64 H Creatinine 2.0 H Glucose 227 H POC Glucose 188 H Hemoglobin A1c Calcium Ferritin AST ALT Lactate Dehydrogenase Troponin T C-Reactive Protein NT-Pro-B Natriuret Pep Albumin 3.4 L Triglycerides HDL Cholesterol PTH Intact Arterial Blood Glucose Urine WBC (Auto) Urine Creatinine Urine Total Protein Coronavirus (PCR) 12/23/20 12/23/20 12/23/20 00:40 00:40 05:15 WBC RBC Hgb Hct Seg Neuts % (Manual) Lymphocytes % (Manual) Nucleated RBC % Seg Neutrophils # Man Lymphocytes # (Manual) PT INR APTT D-Dimer POC ABG pCO2 POC ABG pO2 ABG pO2 ABG O2 Saturation ABG Oxyhemoglobin ABG Potassium ABG Glucose Oxyhemoglobin Sodium Potassium 5.6 H Chloride Carbon Dioxide BUN 71 H Creatinine 1.8 H Glucose 225 H POC Glucose Hemoglobin A1c Calcium Ferritin AST 46 H ALT 83 H Lactate Dehydrogenase Troponin T C-Reactive Protein NT-Pro-B Natriuret Pep Albumin 3.6 L Triglycerides HDL Cholesterol PTH Intact Arterial Blood Glucose Urine WBC (Auto) 8.0 H Urine Creatinine 134.1 H Urine Total Protein 50 H Coronavirus (PCR) 12/23/20 12/23/20 12/23/20 05:15 05:15 11:47 WBC RBC Hgb Hct Seg Neuts % (Manual) Lymphocytes % (Manual) Nucleated RBC % Seg Neutrophils # Man Lymphocytes # (Manual) PT INR APTT D-Dimer POC ABG pCO2 POC ABG pO2 ABG pO2 ABG O2 Saturation ABG Oxyhemoglobin ABG Potassium ABG Glucose Oxyhemoglobin Sodium Potassium Chloride Carbon Dioxide BUN Creatinine Glucose POC Glucose 257 H Hemoglobin A1c 7.2 H Calcium Ferritin AST ALT Lactate Dehydrogenase Troponin T C-Reactive Protein NT-Pro-B Natriuret Pep Albumin Triglycerides HDL Cholesterol PTH Intact 109.4 H Arterial Blood Glucose Urine WBC (Auto) Urine Creatinine Urine Total Protein Coronavirus (PCR) 12/23/20 12/23/20 12/24/20 13:06 16:41 00:02 WBC RBC Hgb Hct Seg Neuts % (Manual) Lymphocytes % (Manual) Nucleated RBC % Seg Neutrophils # Man Lymphocytes # (Manual) PT INR APTT D-Dimer POC ABG pCO2 29.6 L POC ABG pO2 57.8 L ABG pO2 ABG O2 Saturation ABG Oxyhemoglobin 88.9 L ABG Potassium 4.7 H ABG Glucose 286 H Oxyhemoglobin Sodium Potassium Chloride Carbon Dioxide BUN Creatinine Glucose POC Glucose 199 H 213 H Hemoglobin A1c Calcium Ferritin AST ALT Lactate Dehydrogenase Troponin T C-Reactive Protein NT-Pro-B Natriuret Pep Albumin Triglycerides HDL Cholesterol PTH Intact Arterial Blood Glucose 286 H Urine WBC (Auto) Urine Creatinine Urine Total Protein Coronavirus (PCR) 12/24/20 12/24/20 12/24/20 04:56 05:17 12:03 WBC RBC Hgb Hct Seg Neuts % (Manual) Lymphocytes % (Manual) Nucleated RBC % Seg Neutrophils # Man Lymphocytes # (Manual) PT INR APTT D-Dimer POC ABG pCO2 POC ABG pO2 ABG pO2 ABG O2 Saturation ABG Oxyhemoglobin ABG Potassium ABG Glucose Oxyhemoglobin Sodium Potassium 5.4 H Chloride Carbon Dioxide 18 L D BUN 74 H Creatinine 1.6 H Glucose 228 H POC Glucose 204 H 218 H Hemoglobin A1c Calcium Ferritin AST 44 H ALT 105 H Lactate Dehydrogenase Troponin T C-Reactive Protein NT-Pro-B Natriuret Pep Albumin 3.5 L Triglycerides HDL Cholesterol PTH Intact Arterial Blood Glucose Urine WBC (Auto) Urine Creatinine Urine Total Protein Coronavirus (PCR) 12/24/20 12/24/20 12/25/20 17:44 22:25 04:44 WBC RBC Hgb Hct Seg Neuts % (Manual) Lymphocytes % (Manual) Nucleated RBC % Seg Neutrophils # Man Lymphocytes # (Manual) PT INR APTT D-Dimer POC ABG pCO2 POC ABG pO2 ABG pO2 ABG O2 Saturation ABG Oxyhemoglobin ABG Potassium ABG Glucose Oxyhemoglobin Sodium Potassium 5.5 H Chloride Carbon Dioxide BUN 58 H Creatinine Glucose 235 H POC Glucose 266 H 224 H Hemoglobin A1c Calcium Ferritin AST ALT Lactate Dehydrogenase Troponin T C-Reactive Protein NT-Pro-B Natriuret Pep Albumin Triglycerides HDL Cholesterol PTH Intact Arterial Blood Glucose Urine WBC (Auto) Urine Creatinine Urine Total Protein Coronavirus (PCR) 12/25/20 12/25/20 12/25/20 06:11 11:14 11:14 WBC RBC Hgb Hct Seg Neuts % (Manual) Lymphocytes % (Manual) Nucleated RBC % Seg Neutrophils # Man Lymphocytes # (Manual) PT INR APTT D-Dimer 6017.45 H POC ABG pCO2 POC ABG pO2 ABG pO2 ABG O2 Saturation ABG Oxyhemoglobin ABG Potassium ABG Glucose Oxyhemoglobin Sodium Potassium Chloride Carbon Dioxide BUN Creatinine Glucose POC Glucose 191 H Hemoglobin A1c Calcium Ferritin 1385.0 H AST ALT Lactate Dehydrogenase Troponin T C-Reactive Protein NT-Pro-B Natriuret Pep Albumin Triglycerides HDL Cholesterol PTH Intact Arterial Blood Glucose Urine WBC (Auto) Urine Creatinine Urine Total Protein Coronavirus (PCR) 12/25/20 12/25/20 12/25/20 11:38 17:00 23:31 WBC RBC Hgb Hct Seg Neuts % (Manual) Lymphocytes % (Manual) Nucleated RBC % Seg Neutrophils # Man Lymphocytes # (Manual) PT INR APTT D-Dimer POC ABG pCO2 POC ABG pO2 ABG pO2 ABG O2 Saturation ABG Oxyhemoglobin ABG Potassium ABG Glucose Oxyhemoglobin Sodium Potassium Chloride Carbon Dioxide BUN Creatinine Glucose POC Glucose 213 H 327 H 307 H Hemoglobin A1c Calcium Ferritin AST ALT Lactate Dehydrogenase Troponin T C-Reactive Protein NT-Pro-B Natriuret Pep Albumin Triglycerides HDL Cholesterol PTH Intact Arterial Blood Glucose Urine WBC (Auto) Urine Creatinine Urine Total Protein Coronavirus (PCR) 12/26/20 12/26/20 12/26/20 04:23 05:32 11:50 WBC RBC Hgb Hct Seg Neuts % (Manual) Lymphocytes % (Manual) Nucleated RBC % Seg Neutrophils # Man Lymphocytes # (Manual) PT INR APTT D-Dimer POC ABG pCO2 POC ABG pO2 ABG pO2 ABG O2 Saturation ABG Oxyhemoglobin ABG Potassium ABG Glucose Oxyhemoglobin Sodium 146 H Potassium Chloride Carbon Dioxide BUN 49 H Creatinine Glucose 257 H POC Glucose 265 H 231 H Hemoglobin A1c Calcium Ferritin AST ALT Lactate Dehydrogenase Troponin T C-Reactive Protein NT-Pro-B Natriuret Pep Albumin Triglycerides HDL Cholesterol PTH Intact Arterial Blood Glucose Urine WBC (Auto) Urine Creatinine Urine Total Protein Coronavirus (PCR) 12/26/20 12/26/20 12/27/20 17:17 23:37 04:46 WBC RBC Hgb Hct Seg Neuts % (Manual) Lymphocytes % (Manual) Nucleated RBC % Seg Neutrophils # Man Lymphocytes # (Manual) PT INR APTT D-Dimer POC ABG pCO2 POC ABG pO2 ABG pO2 ABG O2 Saturation ABG Oxyhemoglobin ABG Potassium ABG Glucose Oxyhemoglobin Sodium Potassium Chloride Carbon Dioxide BUN 53 H Creatinine Glucose 242 H POC Glucose 308 H 256 H Hemoglobin A1c Calcium Ferritin AST ALT 80 H Lactate Dehydrogenase Troponin T C-Reactive Protein NT-Pro-B Natriuret Pep Albumin 3.0 L Triglycerides HDL Cholesterol PTH Intact Arterial Blood Glucose Urine WBC (Auto) Urine Creatinine Urine Total Protein Coronavirus (PCR) 12/27/20 12/27/20 12/27/20 04:46 05:58 11:47 WBC 21.2 H RBC 5.17 H Hgb Hct Seg Neuts % (Manual) Lymphocytes % (Manual) Nucleated RBC % Seg Neutrophils # Man Lymphocytes # (Manual) PT INR APTT D-Dimer POC ABG pCO2 POC ABG pO2 ABG pO2 ABG O2 Saturation ABG Oxyhemoglobin ABG Potassium ABG Glucose Oxyhemoglobin Sodium Potassium Chloride Carbon Dioxide BUN Creatinine Glucose POC Glucose 178 H 184 H Hemoglobin A1c Calcium Ferritin AST ALT Lactate Dehydrogenase Troponin T C-Reactive Protein NT-Pro-B Natriuret Pep Albumin Triglycerides HDL Cholesterol PTH Intact Arterial Blood Glucose Urine WBC (Auto) Urine Creatinine Urine Total Protein Coronavirus (PCR) 12/27/20 12/27/20 12/27/20 17:14 21:34 23:55 WBC RBC Hgb Hct Seg Neuts % (Manual) Lymphocytes % (Manual) Nucleated RBC % Seg Neutrophils # Man Lymphocytes # (Manual) PT INR APTT D-Dimer POC ABG pCO2 POC ABG pO2 ABG pO2 ABG O2 Saturation ABG Oxyhemoglobin ABG Potassium ABG Glucose Oxyhemoglobin Sodium Potassium Chloride Carbon Dioxide BUN Creatinine Glucose POC Glucose 243 H 318 H 281 H Hemoglobin A1c Calcium Ferritin AST ALT Lactate Dehydrogenase Troponin T C-Reactive Protein NT-Pro-B Natriuret Pep Albumin Triglycerides HDL Cholesterol PTH Intact Arterial Blood Glucose Urine WBC (Auto) Urine Creatinine Urine Total Protein Coronavirus (PCR) 12/28/20 12/28/20 12/28/20 04:29 05:52 07:39 WBC RBC Hgb Hct Seg Neuts % (Manual) Lymphocytes % (Manual) Nucleated RBC % Seg Neutrophils # Man Lymphocytes # (Manual) PT INR APTT D-Dimer POC ABG pCO2 POC ABG pO2 ABG pO2 ABG O2 Saturation ABG Oxyhemoglobin ABG Potassium ABG Glucose Oxyhemoglobin Sodium 135 L D Potassium 5.3 H D Chloride Carbon Dioxide 18 L D BUN 52 H Creatinine Glucose 280 H POC Glucose 267 H 261 H Hemoglobin A1c Calcium 7.9 L Ferritin AST ALT Lactate Dehydrogenase Troponin T C-Reactive Protein NT-Pro-B Natriuret Pep Albumin Triglycerides HDL Cholesterol PTH Intact Arterial Blood Glucose Urine WBC (Auto) Urine Creatinine Urine Total Protein Coronavirus (PCR) 12/28/20 12/28/20 12/28/20 11:56 15:00 15:00 WBC 19.0 H RBC 5.46 H Hgb 15.5 H Hct 47.9 H Seg Neuts % (Manual) Lymphocytes % (Manual) Nucleated RBC % Seg Neutrophils # Man Lymphocytes # (Manual) PT 16.0 H INR 1.23 H APTT 38.4 H D-Dimer POC ABG pCO2 POC ABG pO2 ABG pO2 ABG O2 Saturation ABG Oxyhemoglobin ABG Potassium ABG Glucose Oxyhemoglobin Sodium Potassium Chloride Carbon Dioxide BUN Creatinine Glucose POC Glucose 271 H Hemoglobin A1c Calcium Ferritin AST ALT Lactate Dehydrogenase Troponin T C-Reactive Protein NT-Pro-B Natriuret Pep Albumin Triglycerides HDL Cholesterol PTH Intact Arterial Blood Glucose Urine WBC (Auto) Urine Creatinine Urine Total Protein Coronavirus (PCR) 12/28/20 12/28/20 12/29/20 16:32 22:05 04:39 WBC RBC Hgb Hct Seg Neuts % (Manual) Lymphocytes % (Manual) Nucleated RBC % Seg Neutrophils # Man Lymphocytes # (Manual) PT INR APTT D-Dimer POC ABG pCO2 POC ABG pO2 ABG pO2 ABG O2 Saturation ABG Oxyhemoglobin ABG Potassium ABG Glucose Oxyhemoglobin Sodium Potassium 5.5 H Chloride Carbon Dioxide BUN 51 H Creatinine Glucose 257 H POC Glucose 246 H 324 H Hemoglobin A1c Calcium 8.1 L Ferritin AST ALT Lactate Dehydrogenase Troponin T C-Reactive Protein NT-Pro-B Natriuret Pep Albumin Triglycerides HDL Cholesterol PTH Intact Arterial Blood Glucose Urine WBC (Auto) Urine Creatinine Urine Total Protein Coronavirus (PCR) 12/29/20 12/29/20 12/29/20 07:16 11:41 15:43 WBC RBC Hgb Hct Seg Neuts % (Manual) Lymphocytes % (Manual) Nucleated RBC % Seg Neutrophils # Man Lymphocytes # (Manual) PT INR APTT D-Dimer POC ABG pCO2 POC ABG pO2 ABG pO2 ABG O2 Saturation ABG Oxyhemoglobin ABG Potassium ABG Glucose Oxyhemoglobin Sodium Potassium Chloride Carbon Dioxide BUN Creatinine Glucose POC Glucose 243 H 250 H 268 H Hemoglobin A1c Calcium Ferritin AST ALT Lactate Dehydrogenase Troponin T C-Reactive Protein NT-Pro-B Natriuret Pep Albumin Triglycerides HDL Cholesterol PTH Intact Arterial Blood Glucose Urine WBC (Auto) Urine Creatinine Urine Total Protein Coronavirus (PCR) 12/29/20 12/30/20 12/30/20 21:47 07:26 08:27 WBC 25.1 H RBC 5.22 H Hgb Hct Seg Neuts % (Manual) Lymphocytes % (Manual) Nucleated RBC % Seg Neutrophils # Man Lymphocytes # (Manual) PT INR APTT D-Dimer POC ABG pCO2 POC ABG pO2 ABG pO2 ABG O2 Saturation ABG Oxyhemoglobin ABG Potassium ABG Glucose Oxyhemoglobin Sodium Potassium Chloride Carbon Dioxide BUN Creatinine Glucose POC Glucose 250 H 193 H Hemoglobin A1c Calcium Ferritin AST ALT Lactate Dehydrogenase Troponin T C-Reactive Protein NT-Pro-B Natriuret Pep Albumin Triglycerides HDL Cholesterol PTH Intact Arterial Blood Glucose Urine WBC (Auto) Urine Creatinine Urine Total Protein Coronavirus (PCR) 12/30/20 12/30/20 12/30/20 08:27 11:29 19:50 WBC RBC Hgb Hct Seg Neuts % (Manual) Lymphocytes % (Manual) Nucleated RBC % Seg Neutrophils # Man Lymphocytes # (Manual) PT INR APTT D-Dimer POC ABG pCO2 POC ABG pO2 ABG pO2 46.0 L ABG O2 Saturation 80.2 L ABG Oxyhemoglobin ABG Potassium ABG Glucose Oxyhemoglobin 78.0 L Sodium Potassium Chloride Carbon Dioxide BUN 60 H Creatinine Glucose 240 H POC Glucose 270 H Hemoglobin A1c Calcium Ferritin AST ALT Lactate Dehydrogenase Troponin T C-Reactive Protein NT-Pro-B Natriuret Pep Albumin Triglycerides HDL Cholesterol PTH Intact Arterial Blood Glucose Urine WBC (Auto) Urine Creatinine Urine Total Protein Coronavirus (PCR) 12/30/20 12/31/20 12/31/20 21:44 06:03 07:21 WBC RBC Hgb Hct Seg Neuts % (Manual) Lymphocytes % (Manual) Nucleated RBC % Seg Neutrophils # Man Lymphocytes # (Manual) PT INR APTT D-Dimer POC ABG pCO2 POC ABG pO2 ABG pO2 ABG O2 Saturation ABG Oxyhemoglobin ABG Potassium ABG Glucose Oxyhemoglobin Sodium Potassium Chloride Carbon Dioxide BUN 65 H Creatinine Glucose 246 H POC Glucose 273 H 227 H Hemoglobin A1c Calcium Ferritin AST ALT Lactate Dehydrogenase Troponin T C-Reactive Protein NT-Pro-B Natriuret Pep Albumin Triglycerides HDL Cholesterol PTH Intact Arterial Blood Glucose Urine WBC (Auto) Urine Creatinine Urine Total Protein Coronavirus (PCR) 12/31/20 12/31/20 12/31/20 11:28 17:20 21:12 WBC RBC Hgb Hct Seg Neuts % (Manual) Lymphocytes % (Manual) Nucleated RBC % Seg Neutrophils # Man Lymphocytes # (Manual) PT INR APTT D-Dimer POC ABG pCO2 POC ABG pO2 ABG pO2 ABG O2 Saturation ABG Oxyhemoglobin ABG Potassium ABG Glucose Oxyhemoglobin Sodium Potassium Chloride Carbon Dioxide BUN Creatinine Glucose POC Glucose 232 H 256 H 239 H Hemoglobin A1c Calcium Ferritin AST ALT Lactate Dehydrogenase Troponin T C-Reactive Protein NT-Pro-B Natriuret Pep Albumin Triglycerides HDL Cholesterol PTH Intact Arterial Blood Glucose Urine WBC (Auto) Urine Creatinine Urine Total Protein Coronavirus (PCR) 01/01/21 01/01/21 01/01/21 06:02 06:02 10:41 WBC 21.3 H RBC Hgb Hct Seg Neuts % (Manual) Lymphocytes % (Manual) Nucleated RBC % Seg Neutrophils # Man Lymphocytes # (Manual) PT INR APTT D-Dimer POC ABG pCO2 POC ABG pO2 ABG pO2 ABG O2 Saturation ABG Oxyhemoglobin ABG Potassium ABG Glucose Oxyhemoglobin Sodium Potassium Chloride Carbon Dioxide BUN 67 H Creatinine Glucose 256 H POC Glucose 225 H Hemoglobin A1c Calcium Ferritin AST ALT Lactate Dehydrogenase Troponin T C-Reactive Protein NT-Pro-B Natriuret Pep Albumin Triglycerides HDL Cholesterol PTH Intact Arterial Blood Glucose Urine WBC (Auto) Urine Creatinine Urine Total Protein Coronavirus (PCR) Allied health notes reviewed: nursing
[2021-01-01] MEDS: INSULIN GLARGINE 100 UNITS/ML SUB-Q SCH (22:49)
[2021-01-02] MEDS: METOPROLOL TARTRATE 5 MG/5 ML INJ IV SCH ×3 (05:42→17:56)
[2021-01-02] MEDS: methylPREDNISolone Sod Succinate 125 MG/2 ML INJ IV SCH ×3 (05:45→23:59)
[2021-01-02 07:08] LABS: BUN/Creatinine Ratio 49; Blood Urea Nitrogen 69 mg/dL (9-20); Calcium 8.4 mg/dL (8.4-10.2); Hemolysis Index 11
--- NOTE | 2021-01-02 08:11 | Progress Note ---
Assessment and Plan Assessment and plan: -- Acute respiratory failure with hypoxia Current Visit: Yes Status: Acute Plan to address problem: Strongly encouraged the patient not to remove BiPAP Wean as tolerated, on high dose Solu-Medrol, pulmonary following Home O2 evaluation prior to discharge ---Hyperkalemia resolved Current Visit: Yes Status: Acute K5.5, calcium gluconate 1 g IV Kayexalate 30 g p.o. x1 Closely monitor electrolytes -- Coronavirus infection Current Visit: Yes Status: Acute Plan to address problem: Continue isolation, high flow oxygen oxygen/BiPAP Completed Remdesivir. Completed empiric antibiotics 5 days Continue high-dose IV steroids x 10 days Does not meet hospital criteria for Actemra based on CRP -- Obesity hypoventilation syndrome Current Visit: Yes Status: Acute Plan to address problem: Balanced diet, increase physical activity discharge, outpatient pulmonary follow-up for sleep study. Present on admission -- Pneumonia Current Visit: Yes Status: Acute Completed antibiotics, procalcitonin was high -- bilateral DVT on venous Doppler On full dose Lovenox Not stable to go for CTA/V/Q to rule out PE -- Acute kidney failure with vasomotor nephropathy; Present on admission. Resolved -- morbid obesity BMI; 44.4 Patient needs weight reduction when medically stable He would benefit by bariatric surgical evaluation as outpatient For weight reduction program when he is medically stable -- DVT prophylaxis Current Visit: Yes Status: Acute On Lovenox -- Advance care planning Current Visit: Yes Status: Acute Plan to address problem: Disease education conducted, care plan discussed, diagnoses discussed, prognosis discussed, patient counseled regarding coronavirus vaccination within 90 days of discharge. Continue monitoring in MICU The high probability of a clinically significant, sudden or life threatening deterioration of the [CVS, renal, vascular, respiratory, ID ] system(s) required my full and direct attention, intervention and personal management. The aggregate critical care time was [45] minutes. This time is in addition to time spent performing reported procedures but includes the following: [x] Data Review and interpretation [x] Patient assessment and monitoring of vital signs [x] Documentation [x] Medication orders and management Brief history and daily hospital course 50 YO Male with HTN, CHF, Obesity Hypoventilation Syndrome, Medication Noncompliance, COVID-19 infection Diagnosed 1week prior to admission , was admitted through emergency room with acute respiratory failure requiring supplemental oxygen, tested positive for coronavirus, evaluated by ID managed appropriately per COVID-19 protocols, severely hypoxemic evaluated and managed by clinic assistant patient was requiring high flow nasal cannula oxygen, currently on BiPAP. Venous Doppler was positive for bilateral DVT on full dose anticoagulation with Lovenox, briefly transferred to telemetry, however patient became severely hypoxemic, as patient did not comply with BiPAP, patient was bro ught back to [facility] for close observation. Patient is being followed and managed by pulmonary, ID and nephrology services[for acute kidney injury] 12/21: Continue supportive care, wean oxygen as tolerated, Pulmonary, Nephrology, ID input. Renal improving. Continue steroids, defer Remedesivir to the ID. CPAP at night due to CAR[place] 12/22: Patient remains persistently hypoxic, going to be moving the patient down to the [facility] as he is satting 86% on nonrebreather and also high flow. Prognosis very poor. 12/23: : Continue IMCU. Continue reinforcement for the patient management plan. Continue steroids and remdesivir. Monitor blood sugar closely. Poor prognosis 12/24: Extensive discussion about the patient to be compliant with management plan. Noted hyperkalemia Kayexalate ordered already for the patient. 12/25: Patient remains with poor prognosis hyperkalemia persisted despite improving renal function. Follow-up Kayexalate has been given this morning. Blood sugar still elevated this could be steroid-induced versus underlying diabetes we will check an A1c and in the meantime we will add Lantus at nighttime for better coverage. 12/26: Patient seen and examined remains profoundly hypoxic. Blood sugar still controlled at this time. He did report a fall yesterday but denied any head trauma CT of the head reviewed negative. Counseling provided on compliance. He also has profound bilateral DVT patient is on full dose anticoagulation while is not clear if this developed here on anticoagulation it most likely has been present prior to presentation. Nevertheless we will consult vascular to further evaluate. Electrolytes appear to have been repleted we will recheck labs in a.m. due to profound leukocytosis. 12/27; severely hypoxemic on 40 L high flow nasal cannula oxygen 100% FiO2 Wean as tolerated, poor prognosis 12/28; patient remains on 40 L high flow NC oxygen and intermittent BiPAP 100% FiO2 Wean as tolerated, closely monitor Pulmonary cleared to transfer out of [facility] to telemetry We will also transition full dose anticoagulation from Lovenox to Eliquis per protocol 12/29: Hyperkalemia, corrected with calcium gluconate, Kayexalate Monitor electrolytes Patient remains on high flow nasal cannula oxygen 40 L/100% FiO2/96 O2 sats. 12/30; remains on high flow oxygen 40 L, will wean as tolerated Hyperkalemia resolved, increase Lantus dose to 30 units subcu twice a day 12/31; last night patient went into severe hypoxemia , patient was on 40 L of high flow nasal cannula oxygen and 100% nonrebreather Still was hypoxemic , discussed with clinic assistant Dr. Tan , advised to place on BiPAP, patient was on BiPAP in the past, however refuses to wear it. patient strongly encouraged to comply with BiPAP.and today at the time of my examination patient is on BiPAP saturating well at 98% Encouraged the patient not to remove the BiPAP. He verbalized understanding Physical Therapy Nurse considering transfer the patient to [facility] for close monitoring 01/01; patient is saturating well on BiPAP 96 to 97%, however is trying to remove it Strongly encouraged him to comply with BiPAP, also informed him the dangers of removing the BiPAP. 01/02; on BiPAP, 100% FiO2 saturating well at 96 to 97% Wean as tolerated, advised prone positioning as possible Disposition; wean as tolerated, home O2 evaluation prior to discharge Follow pulmonary recommendations History Interval history: Patient continues to be on BiPAP, 100% FiO2 saturating well at 96 to 97% Patient feels slightly better, still in mild respiratory distress Vital signs noted Hospitalist Physical - Constitutional Vitals: Temp Pulse Resp BP Pulse Ox 98.9 F 120 H 28 H 114/78 89 01/02/21 07:30 01/02/21 05:42 01/02/21 05:00 01/02/21 05:42 01/02/21 05:00 General appearance: Present: mild distress, well-nourished, obese (Morbidly obese), other (On BiPAP) - EENT Eyes: Present: PERRL, EOM intact - Neck Neck: Present: supple, normal ROM - Respiratory Respiratory effort: normal Respiratory: bilateral: diminished, negative: rales, rhonchi, wheezing - Cardiovascular Rhythm: regular Heart Sounds: Present: S1 & S2 - Extremities Extremities: no ischemia, No edema - Abdominal General gastrointestinal: soft, non-tender, non-distended, normal bowel sounds - Integumentary Integumentary: Present: clear, warm - Psychiatric Psychiatric: appropriate mood/affect, agitated - Neurologic Neurologic: CNII-XII intact, moves all extremities HEART Score - HEART Score Troponin: Troponin T < 0.010 ng/mL (0.00-0.029) 12/21/20 18:26 Results - Labs CBC & Chem 7: 01/01/21 06:02 01/02/21 06:36 Labs: Laboratory Last Values WBC 21.3 K/mm3 (4.5-11.0) H 01/01/21 06:02 RBC 4.91 M/mm3 (3.65-5.03) 01/01/21 06:02 Hgb 13.5 gm/dl (11.8-15.2) 01/01/21 06:02 Hct 42.3 % (35.5-45.6) 01/01/21 06:02 MCV 86 fl (84-94) 01/01/21 06:02 MCH 28 pg (28-32) 01/01/21 06:02 MCHC 32 % (32-34) 01/01/21 06:02 RDW 14.0 % (13.2-15.2) 01/01/21 06:02 Plt Count 173 K/mm3 (140-440) 01/01/21 06:02 Add Manual Diff Complete 12/21/20 06:10 Total Counted 100 12/21/20 06:10 Seg Neuts % (Manual) 89.0 % (40.0-70.0) H 12/21/20 06:10 Band Neutrophils % 3.0 % 12/21/20 06:10 Lymphocytes % (Manual) 5.0 % (13.4-35.0) L 12/20/20 11:31 Reactive Lymphs % (Man) 2.0 % 12/21/20 06:10 Monocytes % (Manual) 1.0 % (0.0-7.3) 12/21/20 06:10 Myelocytes % 4.0 % 12/21/20 06:10 Blast Cells % 1.0 % 12/21/20 06:10 Nucleated RBC % 1.0 % (0.0-0.9) H 12/21/20 06:10 Seg Neutrophils # Man 17.9 K/mm3 (1.8-7.7) H 12/21/20 06:10 Band Neutrophils # 0.6 K/mm3 12/21/20 06:10 Lymphocytes # (Manual) 0.0 K/mm3 (1.2-5.4) L 12/21/20 06:10 Abs React Lymphs (Man) 0.4 K/mm3 12/21/20 06:10 Monocytes # (Manual) 0.2 K/mm3 (0.0-0.8) 12/21/20 06:10 Eosinophils # (Manual) 0.0 K/mm3 (0.0-0.4) 12/21/20 06:10 Basophils # (Manual) 0.0 K/mm3 (0.0-0.1) 12/21/20 06:10 Metamyelocytes # 0.0 K/mm3 12/21/20 06:10 Myelocytes # 0.8 K/mm3 12/21/20 06:10 Promyelocytes # 0.0 K/mm3 12/21/20 06:10 Blast Cells # 0.1 K/mm3 12/21/20 06:10 WBC Morphology Not Reportable 12/21/20 06:10 Hypersegmented Neuts Not Reportable 12/21/20 06:10 Hyposegmented Neuts Not Reportable 12/21/20 06:10 Hypogranular Neuts Not Reportable 12/21/20 06:10 Smudge Cells Not Reportable 12/21/20 06:10 Toxic Granulation Not Reportable 12/21/20 06:10 Toxic Vacuolation Not Reportable 12/21/20 06:10 Dohle Bodies Not Reportable 12/21/20 06:10 Pelger-Huet Anomaly Not Reportable 12/21/20 06:10 Chantel Rods Not Reportable 12/21/20 06:10 Platelet Estimate Consistent w auto 12/21/20 06:10 Clumped Platelets Not Reportable 12/21/20 06:10 Plt Clumps, EDTA Not Reportable 12/21/20 06:10 Large Platelets Not Reportable 12/21/20 06:10 Giant Platelets Not Reportable 12/21/20 06:10 Platelet Satelliting Not Reportable 12/21/20 06:10 Plt Morphology Comment Not Reportable 12/21/20 06:10 RBC Morphology Not Reportable 12/21/20 06:10 Dimorphic RBCs Not Reportable 12/21/20 06:10 Polychromasia Not Reportable 12/21/20 06:10 Hypochromasia Not Reportable 12/21/20 06:10 Poikilocytosis Not Reportable 12/21/20 06:10 Anisocytosis Not Reportable 12/21/20 06:10 Microcytosis Not Reportable 12/21/20 06:10 Macrocytosis Not Reportable 12/21/20 06:10 Spherocytes Rare 12/21/20 06:10 Pappenheimer Bodies Not Reportable 12/21/20 06:10 Sickle Cells Not Reportable 12/21/20 06:10 Target Cells Rare 12/21/20 06:10 Tear Drop Cells Not Reportable 12/21/20 06:10 Ovalocytes Not Reportable 12/21/20 06:10 Helmet Cells Not Reportable 12/21/20 06:10 Torres-Melissa Bodies Not Reportable 12/21/20 06:10 [place] Rings Not Reportable 12/21/20 06:10 Chaparro Cells Not Reportable 12/21/20 06:10 Bite Cells Not Reportable 12/21/20 06:10 Crenated Cell Not Reportable 12/21/20 06:10 Elliptocytes Not Reportable 12/21/20 06:10 Acanthocytes (Spur) Not Reportable 12/21/20 06:10 Rouleaux Not Reportable 12/21/20 06:10 Hemoglobin C Crystals Not Reportable 12/21/20 06:10 Schistocytes Not Reportable 12/21/20 06:10 Malaria parasites Not Reportable 12/21/20 06:10 Andrew Bodies Not Reportable 12/21/20 06:10 Hem Pathologist Commnt No 12/21/20 06:10 PT 16.0 Sec. (12.2-14.9) H 12/28/20 15:00 INR 1.23 (0.87-1.13) H 12/28/20 15:00 APTT 38.4 Sec. (24.2-36.6) H 12/28/20 15:00 D-Dimer 6017.45 ng/mlDDU (0-234) H 12/25/20 11:14 ABG pH 7.409 pH Units (7.350-7.450) 12/30/20 19:50 POC ABG pCO2 29.6 mmHg (32.0-48.0) L 12/23/20 13:06 ABG pCO2 41.2 mm Hg 12/30/20 19:50 POC ABG pO2 57.8 mmHg (83-108) L 12/23/20 13:06 ABG pO2 46.0 mm Hg (80.0-90.0) L 12/30/20 19:50 POC ABG HCO3 19.9 12/23/20 13:06 ABG HCO3 25.5 mmol/L (20.0-26.0) 12/30/20 19:50 ABG O2 Saturation 80.2 % (95.0-99.0) L 12/30/20 19:50 ABG O2 Content 15.6 (0.0-44) 12/30/20 19:50 POC ABG Base Excess -2.8 12/23/20 13:06 ABG Base Excess 0.8 mmol/L (-2.0-3.0) 12/30/20 19:50 ABG Hemoglobin 14.3 gm/dl (14.0-18.0) 12/30/20 19:50 ABG Oxyhemoglobin 88.9 (94-98) L 12/23/20 13:06 ABG Carboxyhemoglobin 2.2 % (0.0-5.0) 12/30/20 19:50 ABG Methemoglobin 0.5 % (0.0-1.5) 12/30/20 19:50 ABG Sodium 140.6 mmol/L (136.0-145.0) 12/23/20 13:06 ABG Potassium 4.7 mmol/L (3.40-4.50) H 12/23/20 13:06 ABG Chloride 107.0 mmol/L (98-107) 12/23/20 13:06 ABG Glucose 286 mg/dL (65-95) H 12/23/20 13:06 Oxyhemoglobin 78.0 % (95.0-99.0) L 12/30/20 19:50 Carboxyhemoglobin 0.7 (0.5-1.5) 12/23/20 13:06 FiO2 100 % 12/30/20 19:50 FiO2 % 80.0 12/23/20 13:06 Sodium 143 mmol/L (137-145) 01/02/21 06:36 Potassium 4.6 mmol/L (3.6-5.0) 01/02/21 06:36 Chloride 103.8 mmol/L (98-107) 01/02/21 06:36 Carbon Dioxide 28 mmol/L (22-30) 01/02/21 06:36 Anion Gap 16 mmol/L 01/02/21 06:36 BUN 69 mg/dL (9-20) H 01/02/21 06:36 Creatinine 1.4 mg/dL (0.8-1.3) H 01/02/21 06:36 Estimated GFR > 60 ml/min 01/02/21 06:36 BUN/Creatinine Ratio 49 % 01/02/21 06:36 Glucose 284 mg/dL (75-100) H 01/02/21 06:36 POC Glucose 227 mg/dL (70-105) H 01/02/21 07:30 Hemoglobin A1c 7.2 % (4-6) H 12/23/20 05:15 Calcium 8.4 mg/dL (8.4-10.2) 01/02/21 06:36 Ferritin 1385.0 ng/mL (30.0-300.0) H 12/25/20 11:14 Total Bilirubin 1.00 mg/dL (0.1-1.2) 12/27/20 04:46 AST 26 units/L (5-40) 12/27/20 04:46 ALT 80 units/L (7-56) H 12/27/20 04:46 Alkaline Phosphatase 52 units/L (35-129) 12/27/20 04:46 Lactate Dehydrogenase 10 units/L (91-180) L 12/20/20 11:31 Troponin T < 0.010 ng/mL (0.00-0.029) 12/21/20 18:26 C-Reactive Protein 0.60 mg/dL (0.00-1.30) 12/25/20 11:14 NT-Pro-B Natriuret Pep 6191 pg/mL (0-900) H 12/21/20 14:32 Total Protein 6.4 g/dL (6.3-8.2) 12/27/20 04:46 Albumin 3.0 g/dL (3.9-5) L 12/27/20 04:46 Albumin/Globulin Ratio 0.9 % 12/27/20 04:46 Triglycerides 226 mg/dL (2-149) H 12/20/20 11:31 Cholesterol 175 mg/dL (50-199) 12/20/20 11:31 LDL Cholesterol Direct 98 mg/dL (50-130) 12/20/20 11:31 HDL Cholesterol 31 mg/dL (40-59) L 12/20/20 11:31 Cholesterol/HDL Ratio 5.64 % 12/20/20 11:31 Procalcitonin 1.45 ng/mL (<0.15) 12/20/20 11:31 PTH Intact 109.4 pg/mL (15-65) H 12/23/20 05:15 Arterial Blood Glucose 286 mg/dL (65-95) H 12/23/20 13:06 Urine Color Straw (Yellow) 12/23/20 00:40 Urine Turbidity Clear (Clear) 12/23/20 00:40 Urine pH 5.0 (5.0-7.0) 12/23/20 00:40 Ur Specific [place] 1.030 (1.003-1.030) 12/23/20 00:40 Urine Protein 30 mg/dl mg/dL (Negative) 12/23/20 00:40 Urine Glucose (UA) Negative mg/dL (Negative) 12/23/20 00:40 Urine Ketones Negative mg/dL (Negative) 12/23/20 00:40 Urine Blood Negative (Negative) 12/23/20 00:40 Urine Nitrite Negative (Negative) 12/23/20 00:40 Ur Reducing Substances Not Reportable 12/23/20 00:40 Urine Bilirubin Negative (Negative) 12/23/20 00:40 Urine Ictotest Not Reportable 12/23/20 00:40 Urine Urobilinogen < 2.0 mg/dL (<2.0) 12/23/20 00:40 Ur Leukocyte Esterase Negative (Negative) 12/23/20 00:40 Urine WBC (Auto) 8.0 /HPF (0.0-6.0) H 12/23/20 00:40 Urine RBC (Auto) 1.0 /HPF (0.0-6.0) 12/23/20 00:40 U Epithel Cells (Auto) < 1.0 /HPF (0-13.0) 12/23/20 00:40 Hyaline Casts 1 /LPF 12/23/20 00:40 Urine Mucus Few /HPF 12/23/20 00:40 Urine Eosinophils None seen (None Seen) 12/23/20 00:40 Urine Creatinine 134.1 mg/dL (0.1-20.0) H 12/23/20 00:40 Protein/Creatinin Ratio 0.37 12/23/20 00:40 Urine Sodium 26 mmol/L 12/23/20 00:40 Urine Total Protein 50 mg/dL (5-11.8) H 12/23/20 00:40 Coronavirus (PCR) Positive (Negative) A 12/21/20 Unknown [place]/IV: Voiding Method Urinal Active Medications - Current Medications Current Medications: Generic Name Dose Route Start Last Admin Trade Name Freq PRN Reason Stop Dose Admin Acetaminophen 650 mg 12/20/20 12:52 Acetaminophen 325 Mg Tab PO Q4H PRN Pain MILD(1-3)/Fever >100.5/KWON Ascorbic Acid 500 mg 12/20/20 22:00 01/01/21 22:50 Ascorbic Acid 500 Mg Tab PO 500 mg BID GUSTAVO Administration Cholecalciferol 1,000 unit 12/21/20 10:00 01/01/21 09:10 Cholecalciferol (Vit D3) 1000 Unit (25 Mcg) Tab PO 1,000 unit QDAY GUSTAVO Administration Enoxaparin Sodium 150 mg 12/31/20 11:30 01/01/21 22:49 Enoxaparin 150 Mg/1 Ml Inj SUB-Q 150 mg Q12HR GUSTAVO Administration Hydralazine HCl 10 mg 12/22/20 17:56 12/22/20 19:01 Hydralazine 20 Mg/1 Ml Inj IV 10 mg Q6H PRN Administration Hypertension Hydromorphone HCl 0.5 mg 12/20/20 12:52 12/31/20 08:34 Hydromorphone 1 Mg/1 Ml Inj IV 0.5 mg Q23H PRN Administration Pain , Severe (7-10) Insulin Glargine 34 units 12/31/20 19:33 01/01/21 22:49 Insulin Glargine 100 Units/Ml SUB-Q 34 units QHS GUSTAVO Administration Insulin Human Lispro 0 unit 12/28/20 11:30 01/01/21 22:53 Insulin Lispro 100 Unit/Ml SUB-Q 6 unit ACHS GUSTAVO Administration Protocol Insulin Human Lispro 8 unit 01/01/21 07:30 01/01/21 19:05 Insulin Lispro 100 Unit/Ml SUB-Q 8 unit AC GUSTAVO Administration Lorazepam 1 mg 12/31/20 10:57 Lorazepam 2 Mg/Ml Vial IV Q4H PRN Agitation Methylprednisolone Sodium Succinate 80 mg 12/31/20 14:00 01/02/21 05:45 Methylprednisolone Sod Succinate 125 Mg/2 Ml Inj IV 80 mg Q8HR GUSTAVO Administration Metoprolol Tartrate 5 mg 12/31/20 12:00 01/02/21 05:42 Metoprolol Tartrate 5 Mg/5 Ml Inj IV 5 mg Q6HR GUSTAVO Administration Ondansetron HCl 4 mg 12/20/20 12:52 Ondansetron 4 Mg/2 Ml Inj IV Q8H PRN Nausea And Vomiting Oxycodone/Acetaminophen 1 tab 12/20/20 12:52 12/22/20 22:12 Oxycodone /Acetaminophen 5-325mg Tab PO 1 tab Q12H PRN Administration Pain, Moderate (4-6) Sodium Chloride 10 ml 12/20/20 22:00 01/01/21 22:50 Sodium Chloride 0.9% 10 Ml Flush Syringe IV 10 ml BID GUSTAVO Administration Sodium Chloride 10 ml 12/20/20 12:52 Sodium Chloride 0.9% 10 Ml Flush Syringe IV PRN PRN LINE FLUSH Zinc Sulfate 220 mg 12/20/20 22:00 01/01/21 22:50 Zinc Sulfate 220 Mg Cap PO 220 mg BID GUSTAVO Administration Nutrition/Malnutrition Assess - Dietary Evaluation Nutrition/Malnutrition Findings: Nutrition Notes Start: 12/27/20 08:30 Freq: Status: Active Protocol: Document 12/27/20 08:30 GB (Rec: 12/27/20 08:48 GB [email or web address]) Nutrition Notes Need for Assessment generated from: LOS Initial or Follow up Assessment Current Diagnosis Respiratory Failure Other Pertinent Diagnosis COVID19+ Current Diet Cardiac Labs/Tests 12/27: BUN 53, glucose 242, ALT 80 Pertinent Medications Vitamin C, Vit D3, NaCl, Zn Sulfate, Height 6 ft 3 in Weight 162 kg [place] Body Weight (kg) 89.09 BMI 44.6 Intake Prior to Admission Good Weight change and time frame No reported weight changes Weight Status Morbidly Obese Subjective/Other Information Last BM 12/25 PO intake improved from fair to well per RN notes Percent of energy/protein needs met: 100% with po intake 75% or greater daily Burn Absent Trauma Absent GI Symptoms None Food Allergy No Skin Integrity/Comment No reported complications Current % PO Good (75-100%) Minimum of two criteria No #1 Nutrition Diagnosis No nutrition diagnosis at this time Etiology COVID10+ As Evidenced by Signs and Symptoms Medication regime, reported diagnosis Is patient on ventilator? No Is Patient Ambulatory and/or Out of Bed No REE-([place]-confined to bed) 3081.612 Kcal/Kg value to use for calculation 15 Approximate Energy Requirements Using 2430 kcal/Kg Calculation Used for Recommendations Kcal/kg Additional Notes Protein: 0.6-0.8 g/kg @ 162k-129g Fluids: 1 ml/kcal or per MD Nutrition Intervention Change Diet Order: continue Nutrition Support: n/a Add Supplement/Snack (indicate name/kcal n/a /protein ) Goal #1 PO intake of meals to maintain at 75% or greater daily for LOS Goal #2 Weight to maintain within -3% current weight for LOS Follow-Up By: 01/03/21 Additional Comments f/u: po intake, weight
[2021-01-02] MEDS: CHOLECALCIFEROL (VIT D3) 1000 UNIT (25 mcg) TAB PO SCH (09:58)
[2021-01-02] MEDS: INSULIN LISPRO 100 UNIT/ML SUB-Q SCH ×6 (09:58→17:55)
[2021-01-02] MEDS: ZINC SULFATE 220 MG CAP PO SCH ×2 (09:58→23:59)
[2021-01-02] MEDS: ASCORBIC ACID 500 MG TAB PO SCH ×2 (09:58→23:58)
[2021-01-02] MEDS: ENOXAPARIN 150 MG/1 ML INJ SUB-Q SCH ×2 (09:59→23:59)
[2021-01-02 11:06] LABS: C-Reactive Protein 0.7 mg/dL (0.00-1.30)
--- NOTE | 2021-01-02 11:43 | Progress Note ---
Assessment and Plan 50 y/o obese male, COVID positive admitted with acute hypoxic respiratory failure, renal failure and elevated D-Dimer 01/02/21: Bump in Cr today. did not give lasix yesterday. AWait renal recs for today. Continue PRN bipap, and combo therapy. Guarded prognosis. 01/01/21: Follow up renal recs. Cr stable but will hold on any further lasix therapy today until they make recs. Wean Bipap. Continue steroids. Anticoagulation. 12/31/20: Ordered lasix for now. If ok with renal will order another dose for later this evening. Patient has extensive bilateral DVT, very well could pass a PE but blood gas would not suggest. Also, ABG's are not helpful in this population as we know they are going to be severely hypoxic. Clinical situation determines intubation 99% of the time. Need to give patient the best chance possible to avoid intubation as the mortality rate with intubation and covid is extremely high. As long as sat can be maintained above 88% even with bipap, prefer to avoid intubation. Needs net negative fluid balance. Guarded prognosis. 12/30/20: Ordered another dose of lasix this am. Prone. Anticoagulation for clots. Guarded Prognosis 12/29/20: COntinue anticoagulation. Prone if possible. Awaiting COVID floor bed. Renal gave lasix this morning. 12/28/20: Reviewed IR note, appreciate their eval. Will start to wean steroids later this week. Continue anticoagulation. Prone if able. Ok with transfer back to floor as he has not required continuous bipap. Still would consider diuresis. 12/27/20: Need to remember that BNP was greater thann 6k on admit. Now has bilateral DVT's extensive. Spoke with IMS yesterday with plans to consult vascular for evaluation already on therapeutic lovenox. Prone if possible. continue steroids. Guarded prognosis. 12/26/20: Lasix has not been given lately. Will hold off today as well. Follow up renal recs. Prone patient if able. Continue steroids. Guarded prognosis. 12/23/20: Lasix 40 again today. Suggest daily therapy at least for several d ays to help with volume overload. This could help with oxygenation. Steroids and Remdesivir. Prone if able. BP control. Guarded prognosis. 1. Ordered stat BNP 2. Agree with Echo, follow up read as it has been done per the chart 3. Agree with steroids right now 4. Was given lasix yesterday and renal function improved. Agree with continued therapy, and follow up renal recs 5. Remdesivir ordered by ID 6. Prone as tolerated during the day and sleep prone at night 7. Guarded prognosis. Subjective Date of service: 01/02/21 Principal diagnosis: COVID-19 PNA Interval history: No acute events. Now on HFNC and NRB. Objective Vital Signs - 12hr 01/01/21 01/01/21 01/02/21 23:45 23:51 00:00 Temperature 99.5 F Pulse Rate 114 H 100 H Pulse Rate [ From Monitor] Respiratory 21 Rate Blood Pressure 120/83 116/83 O2 Sat by Pulse Oximetry 01/02/21 01/02/21 01/02/21 01:00 02:00 02:08 Temperature Pulse Rate 103 H 117 H 110 H Pulse Rate [ From Monitor] Respiratory 25 H 32 H 28 H Rate Blood Pressure 126/81 130/88 130/88 O2 Sat by Pulse 92 78 L 97 Oximetry 01/02/21 01/02/21 01/02/21 03:01 03:56 04:00 Temperature 99.0 F Pulse Rate 109 H Pulse Rate [ 99 H From Monitor] Respiratory 25 H 25 H Rate Blood Pressure 130/88 O2 Sat by Pulse 95 94 Oximetry 01/02/21 01/02/21 01/02/21 04:01 04:40 05:00 Temperature Pulse Rate 99 H 114 H 107 H Pulse Rate [ From Monitor] Respiratory 25 H 28 H Rate Blood Pressure 118/69 114/78 O2 Sat by Pulse 94 89 Oximetry 01/02/21 01/02/21 01/02/21 05:42 06:00 07:01 Temperature Pulse Rate 120 H 108 H Pulse Rate [ From Monitor] Respiratory 29 H Rate Blood Pressure 114/78 122/87 127/86 O2 Sat by Pulse 85 91 Oximetry 01/02/21 01/02/21 01/02/21 07:30 08:00 09:33 Temperature 98.9 F Pulse Rate 105 H Pulse Rate [ From Monitor] Respiratory 32 H Rate Blood Pressure 132/96 O2 Sat by Pulse 79 L 88 Oximetry CBC and BMP: 01/01/21 06:02 01/02/21 06:36 ABG, PT/INR, D-dimer: ABG ABG pH 7.409 pH Units (7.350-7.450) 12/30/20 19:50 POC ABG pCO2 29.6 mmHg (32.0-48.0) L 12/23/20 13:06 ABG pCO2 41.2 mm Hg 12/30/20 19:50 POC ABG pO2 57.8 mmHg (83-108) L 12/23/20 13:06 ABG pO2 46.0 mm Hg (80.0-90.0) L 12/30/20 19:50 POC ABG HCO3 19.9 12/23/20 13:06 ABG O2 Saturation 80.2 % (95.0-99.0) L 12/30/20 19:50 PT/INR, D-dimer PT 16.0 Sec. (12.2-14.9) H 12/28/20 15:00 INR 1.23 (0.87-1.13) H 12/28/20 15:00 D-Dimer 6017.45 ng/mlDDU (0-234) H 12/25/20 11:14 Abnormal lab findings: Abnormal Labs 12/20/20 12/20/20 12/20/20 11:31 11:31 11:31 WBC 16.5 H RBC 5.27 H Hgb Hct Seg Neuts % (Manual) 90.0 H Lymphocytes % (Manual) 5.0 L Nucleated RBC % Seg Neutrophils # Man 14.9 H Lymphocytes # (Manual) 0.8 L PT INR APTT D-Dimer > 21538 H POC ABG pCO2 POC ABG pO2 ABG pO2 ABG O2 Saturation ABG Oxyhemoglobin ABG Potassium ABG Glucose Oxyhemoglobin Sodium 130 L Potassium Chloride 94.5 L Carbon Dioxide BUN 64 H Creatinine 2.6 H Glucose 154 H POC Glucose Hemoglobin A1c Calcium Ferritin AST ALT Lactate Dehydrogenase Troponin T C-Reactive Protein NT-Pro-B Natriuret Pep Albumin 3.5 L Triglycerides HDL Cholesterol PTH Intact Arterial Blood Glucose Urine WBC (Auto) Urine Creatinine Urine Total Protein Coronavirus (PCR) 12/20/20 12/21/20 12/21/20 11:31 06:10 06:10 WBC 20.1 H RBC 5.55 H Hgb 15.4 H Hct 47.3 H Seg Neuts % (Manual) 89.0 H Lymphocytes % (Manual) Nucleated RBC % 1.0 H Seg Neutrophils # Man 17.9 H Lymphocytes # (Manual) 0.0 L PT INR APTT D-Dimer POC ABG pCO2 POC ABG pO2 ABG pO2 ABG O2 Saturation ABG Oxyhemoglobin ABG Potassium ABG Glucose Oxyhemoglobin Sodium 136 L Potassium Chloride Carbon Dioxide BUN 57 H Creatinine 1.8 H Glucose 193 H POC Glucose Hemoglobin A1c Calcium Ferritin AST ALT Lactate Dehydrogenase 10 L Troponin T 0.106 H* C-Reactive Protein 5.20 H NT-Pro-B Natriuret Pep Albumin Triglycerides 226 H HDL Cholesterol 31 L PTH Intact Arterial Blood Glucose Urine WBC (Auto) Urine Creatinine Urine Total Protein Coronavirus (PCR) 12/21/20 12/21/20 12/21/20 13:29 14:32 Unknown WBC RBC Hgb Hct Seg Neuts % (Manual) Lymphocytes % (Manual) Nucleated RBC % Seg Neutrophils # Man Lymphocytes # (Manual) PT INR APTT D-Dimer POC ABG pCO2 POC ABG pO2 ABG pO2 ABG O2 Saturation ABG Oxyhemoglobin ABG Potassium ABG Glucose Oxyhemoglobin Sodium 134 L Potassium Chloride Carbon Dioxide BUN 57 H Creatinine 1.8 H Glucose 340 H POC Glucose Hemoglobin A1c Calcium 8.3 L Ferritin AST ALT Lactate Dehydrogenase Troponin T C-Reactive Protein NT-Pro-B Natriuret Pep 6191 H Albumin 3.3 L Triglycerides HDL Cholesterol PTH Intact Arterial Blood Glucose Urine WBC (Auto) Urine Creatinine Urine Total Protein Coronavirus (PCR) Positive A 12/22/20 12/22/20 12/22/20 05:56 05:56 17:21 WBC 26.6 H RBC 5.22 H Hgb Hct Seg Neuts % (Manual) Lymphocytes % (Manual) Nucleated RBC % Seg Neutrophils # Man Lymphocytes # (Manual) PT INR APTT D-Dimer POC ABG pCO2 POC ABG pO2 ABG pO2 ABG O2 Saturation ABG Oxyhemoglobin ABG Potassium ABG Glucose Oxyhemoglobin Sodium Potassium Chloride Carbon Dioxide BUN 64 H Creatinine 2.0 H Glucose 227 H POC Glucose 188 H Hemoglobin A1c Calcium Ferritin AST ALT Lactate Dehydrogenase Troponin T C-Reactive Protein NT-Pro-B Natriuret Pep Albumin 3.4 L Triglycerides HDL Cholesterol PTH Intact Arterial Blood Glucose Urine WBC (Auto) Urine Creatinine Urine Total Protein Coronavirus (PCR) 12/23/20 12/23/20 12/23/20 00:40 00:40 05:15 WBC RBC Hgb Hct Seg Neuts % (Manual) Lymphocytes % (Manual) Nucleated RBC % Seg Neutrophils # Man Lymphocytes # (Manual) PT INR APTT D-Dimer POC ABG pCO2 POC ABG pO2 ABG pO2 ABG O2 Saturation ABG Oxyhemoglobin ABG Potassium ABG Glucose Oxyhemoglobin Sodium Potassium 5.6 H Chloride Carbon Dioxide BUN 71 H Creatinine 1.8 H Glucose 225 H POC Glucose Hemoglobin A1c Calcium Ferritin AST 46 H ALT 83 H Lactate Dehydrogenase Troponin T C-Reactive Protein NT-Pro-B Natriuret Pep Albumin 3.6 L Triglycerides HDL Cholesterol PTH Intact Arterial Blood Glucose Urine WBC (Auto) 8.0 H Urine Creatinine 134.1 H Urine Total Protein 50 H Coronavirus (PCR) 12/23/20 12/23/20 12/23/20 05:15 05:15 11:47 WBC RBC Hgb Hct Seg Neuts % (Manual) Lymphocytes % (Manual) Nucleated RBC % Seg Neutrophils # Man Lymphocytes # (Manual) PT INR APTT D-Dimer POC ABG pCO2 POC ABG pO2 ABG pO2 ABG O2 Saturation ABG Oxyhemoglobin ABG Potassium ABG Glucose Oxyhemoglobin Sodium Potassium Chloride Carbon Dioxide BUN Creatinine Glucose POC Glucose 257 H Hemoglobin A1c 7.2 H Calcium Ferritin AST ALT Lactate Dehydrogenase Troponin T C-Reactive Protein NT-Pro-B Natriuret Pep Albumin Triglycerides HDL Cholesterol PTH Intact 109.4 H Arterial Blood Glucose Urine WBC (Auto) Urine Creatinine Urine Total Protein Coronavirus (PCR) 12/23/20 12/23/20 12/24/20 13:06 16:41 00:02 WBC RBC Hgb Hct Seg Neuts % (Manual) Lymphocytes % (Manual) Nucleated RBC % Seg Neutrophils # Man Lymphocytes # (Manual) PT INR APTT D-Dimer POC ABG pCO2 29.6 L POC ABG pO2 57.8 L ABG pO2 ABG O2 Saturation ABG Oxyhemoglobin 88.9 L ABG Potassium 4.7 H ABG Glucose 286 H Oxyhemoglobin Sodium Potassium Chloride Carbon Dioxide BUN Creatinine Glucose POC Glucose 199 H 213 H Hemoglobin A1c Calcium Ferritin AST ALT Lactate Dehydrogenase Troponin T C-Reactive Protein NT-Pro-B Natriuret Pep Albumin Triglycerides HDL Cholesterol PTH Intact Arterial Blood Glucose 286 H Urine WBC (Auto) Urine Creatinine Urine Total Protein Coronavirus (PCR) 12/24/20 12/24/20 12/24/20 04:56 05:17 12:03 WBC RBC Hgb Hct Seg Neuts % (Manual) Lymphocytes % (Manual) Nucleated RBC % Seg Neutrophils # Man Lymphocytes # (Manual) PT INR APTT D-Dimer POC ABG pCO2 POC ABG pO2 ABG pO2 ABG O2 Saturation ABG Oxyhemoglobin ABG Potassium ABG Glucose Oxyhemoglobin Sodium Potassium 5.4 H Chloride Carbon Dioxide 18 L D BUN 74 H Creatinine 1.6 H Glucose 228 H POC Glucose 204 H 218 H Hemoglobin A1c Calcium Ferritin AST 44 H ALT 105 H Lactate Dehydrogenase Troponin T C-Reactive Protein NT-Pro-B Natriuret Pep Albumin 3.5 L Triglycerides HDL Cholesterol PTH Intact Arterial Blood Glucose Urine WBC (Auto) Urine Creatinine Urine Total Protein Coronavirus (PCR) 12/24/20 12/24/20 12/25/20 17:44 22:25 04:44 WBC RBC Hgb Hct Seg Neuts % (Manual) Lymphocytes % (Manual) Nucleated RBC % Seg Neutrophils # Man Lymphocytes # (Manual) PT INR APTT D-Dimer POC ABG pCO2 POC ABG pO2 ABG pO2 ABG O2 Saturation ABG Oxyhemoglobin ABG Potassium ABG Glucose Oxyhemoglobin Sodium Potassium 5.5 H Chloride Carbon Dioxide BUN 58 H Creatinine Glucose 235 H POC Glucose 266 H 224 H Hemoglobin A1c Calcium Ferritin AST ALT Lactate Dehydrogenase Troponin T C-Reactive Protein NT-Pro-B Natriuret Pep Albumin Triglycerides HDL Cholesterol PTH Intact Arterial Blood Glucose Urine WBC (Auto) Urine Creatinine Urine Total Protein Coronavirus (PCR) 12/25/20 12/25/20 12/25/20 06:11 11:14 11:14 WBC RBC Hgb Hct Seg Neuts % (Manual) Lymphocytes % (Manual) Nucleated RBC % Seg Neutrophils # Man Lymphocytes # (Manual) PT INR APTT D-Dimer 6017.45 H POC ABG pCO2 POC ABG pO2 ABG pO2 ABG O2 Saturation ABG Oxyhemoglobin ABG Potassium ABG Glucose Oxyhemoglobin Sodium Potassium Chloride Carbon Dioxide BUN Creatinine Glucose POC Glucose 191 H Hemoglobin A1c Calcium Ferritin 1385.0 H AST ALT Lactate Dehydrogenase Troponin T C-Reactive Protein NT-Pro-B Natriuret Pep Albumin Triglycerides HDL Cholesterol PTH Intact Arterial Blood Glucose Urine WBC (Auto) Urine Creatinine Urine Total Protein Coronavirus (PCR) 12/25/20 12/25/20 12/25/20 11:38 17:00 23:31 WBC RBC Hgb Hct Seg Neuts % (Manual) Lymphocytes % (Manual) Nucleated RBC % Seg Neutrophils # Man Lymphocytes # (Manual) PT INR APTT D-Dimer POC ABG pCO2 POC ABG pO2 ABG pO2 ABG O2 Saturation ABG Oxyhemoglobin ABG Potassium ABG Glucose Oxyhemoglobin Sodium Potassium Chloride Carbon Dioxide BUN Creatinine Glucose POC Glucose 213 H 327 H 307 H Hemoglobin A1c Calcium Ferritin AST ALT Lactate Dehydrogenase Troponin T C-Reactive Protein NT-Pro-B Natriuret Pep Albumin Triglycerides HDL Cholesterol PTH Intact Arterial Blood Glucose Urine WBC (Auto) Urine Creatinine Urine Total Protein Coronavirus (PCR) 12/26/20 12/26/20 12/26/20 04:23 05:32 11:50 WBC RBC Hgb Hct Seg Neuts % (Manual) Lymphocytes % (Manual) Nucleated RBC % Seg Neutrophils # Man Lymphocytes # (Manual) PT INR APTT D-Dimer POC ABG pCO2 POC ABG pO2 ABG pO2 ABG O2 Saturation ABG Oxyhemoglobin ABG Potassium ABG Glucose Oxyhemoglobin Sodium 146 H Potassium Chloride Carbon Dioxide BUN 49 H Creatinine Glucose 257 H POC Glucose 265 H 231 H Hemoglobin A1c Calcium Ferritin AST ALT Lactate Dehydrogenase Troponin T C-Reactive Protein NT-Pro-B Natriuret Pep Albumin Triglycerides HDL Cholesterol PTH Intact Arterial Blood Glucose Urine WBC (Auto) Urine Creatinine Urine Total Protein Coronavirus (PCR) 12/26/20 12/26/20 12/27/20 17:17 23:37 04:46 WBC RBC Hgb Hct Seg Neuts % (Manual) Lymphocytes % (Manual) Nucleated RBC % Seg Neutrophils # Man Lymphocytes # (Manual) PT INR APTT D-Dimer POC ABG pCO2 POC ABG pO2 ABG pO2 ABG O2 Saturation ABG Oxyhemoglobin ABG Potassium ABG Glucose Oxyhemoglobin Sodium Potassium Chloride Carbon Dioxide BUN 53 H Creatinine Glucose 242 H POC Glucose 308 H 256 H Hemoglobin A1c Calcium Ferritin AST ALT 80 H Lactate Dehydrogenase Troponin T C-Reactive Protein NT-Pro-B Natriuret Pep Albumin 3.0 L Triglycerides HDL Cholesterol PTH Intact Arterial Blood Glucose Urine WBC (Auto) Urine Creatinine Urine Total Protein Coronavirus (PCR) 12/27/20 12/27/20 12/27/20 04:46 05:58 11:47 WBC 21.2 H RBC 5.17 H Hgb Hct Seg Neuts % (Manual) Lymphocytes % (Manual) Nucleated RBC % Seg Neutrophils # Man Lymphocytes # (Manual) PT INR APTT D-Dimer POC ABG pCO2 POC ABG pO2 ABG pO2 ABG O2 Saturation ABG Oxyhemoglobin ABG Potassium ABG Glucose Oxyhemoglobin Sodium Potassium Chloride Carbon Dioxide BUN Creatinine Glucose POC Glucose 178 H 184 H Hemoglobin A1c Calcium Ferritin AST ALT Lactate Dehydrogenase Troponin T C-Reactive Protein NT-Pro-B Natriuret Pep Albumin Triglycerides HDL Cholesterol PTH Intact Arterial Blood Glucose Urine WBC (Auto) Urine Creatinine Urine Total Protein Coronavirus (PCR) 12/27/20 12/27/20 12/27/20 17:14 21:34 23:55 WBC RBC Hgb Hct Seg Neuts % (Manual) Lymphocytes % (Manual) Nucleated RBC % Seg Neutrophils # Man Lymphocytes # (Manual) PT INR APTT D-Dimer POC ABG pCO2 POC ABG pO2 ABG pO2 ABG O2 Saturation ABG Oxyhemoglobin ABG Potassium ABG Glucose Oxyhemoglobin Sodium Potassium Chloride Carbon Dioxide BUN Creatinine Glucose POC Glucose 243 H 318 H 281 H Hemoglobin A1c Calcium Ferritin AST ALT Lactate Dehydrogenase Troponin T C-Reactive Protein NT-Pro-B Natriuret Pep Albumin Triglycerides HDL Cholesterol PTH Intact Arterial Blood Glucose Urine WBC (Auto) Urine Creatinine Urine Total Protein Coronavirus (PCR) 12/28/20 12/28/20 12/28/20 04:29 05:52 07:39 WBC RBC Hgb Hct Seg Neuts % (Manual) Lymphocytes % (Manual) Nucleated RBC % Seg Neutrophils # Man Lymphocytes # (Manual) PT INR APTT D-Dimer POC ABG pCO2 POC ABG pO2 ABG pO2 ABG O2 Saturation ABG Oxyhemoglobin ABG Potassium ABG Glucose Oxyhemoglobin Sodium 135 L D Potassium 5.3 H D Chloride Carbon Dioxide 18 L D BUN 52 H Creatinine Glucose 280 H POC Glucose 267 H 261 H Hemoglobin A1c Calcium 7.9 L Ferritin AST ALT Lactate Dehydrogenase Troponin T C-Reactive Protein NT-Pro-B Natriuret Pep Albumin Triglycerides HDL Cholesterol PTH Intact Arterial Blood Glucose Urine WBC (Auto) Urine Creatinine Urine Total Protein Coronavirus (PCR) 12/28/20 12/28/20 12/28/20 11:56 15:00 15:00 WBC 19.0 H RBC 5.46 H Hgb 15.5 H Hct 47.9 H Seg Neuts % (Manual) Lymphocytes % (Manual) Nucleated RBC % Seg Neutrophils # Man Lymphocytes # (Manual) PT 16.0 H INR 1.23 H APTT 38.4 H D-Dimer POC ABG pCO2 POC ABG pO2 ABG pO2 ABG O2 Saturation ABG Oxyhemoglobin ABG Potassium ABG Glucose Oxyhemoglobin Sodium Potassium Chloride Carbon Dioxide BUN Creatinine Glucose POC Glucose 271 H Hemoglobin A1c Calcium Ferritin AST ALT Lactate Dehydrogenase Troponin T C-Reactive Protein NT-Pro-B Natriuret Pep Albumin Triglycerides HDL Cholesterol PTH Intact Arterial Blood Glucose Urine WBC (Auto) Urine Creatinine Urine Total Protein Coronavirus (PCR) 12/28/20 12/28/20 12/29/20 16:32 22:05 04:39 WBC RBC Hgb Hct Seg Neuts % (Manual) Lymphocytes % (Manual) Nucleated RBC % Seg Neutrophils # Man Lymphocytes # (Manual) PT INR APTT D-Dimer POC ABG pCO2 POC ABG pO2 ABG pO2 ABG O2 Saturation ABG Oxyhemoglobin ABG Potassium ABG Glucose Oxyhemoglobin Sodium Potassium 5.5 H Chloride Carbon Dioxide BUN 51 H Creatinine Glucose 257 H POC Glucose 246 H 324 H Hemoglobin A1c Calcium 8.1 L Ferritin AST ALT Lactate Dehydrogenase Troponin T C-Reactive Protein NT-Pro-B Natriuret Pep Albumin Triglycerides HDL Cholesterol PTH Intact Arterial Blood Glucose Urine WBC (Auto) Urine Creatinine Urine Total Protein Coronavirus (PCR) 12/29/20 12/29/20 12/29/20 07:16 11:41 15:43 WBC RBC Hgb Hct Seg Neuts % (Manual) Lymphocytes % (Manual) Nucleated RBC % Seg Neutrophils # Man Lymphocytes # (Manual) PT INR APTT D-Dimer POC ABG pCO2 POC ABG pO2 ABG pO2 ABG O2 Saturation ABG Oxyhemoglobin ABG Potassium ABG Glucose Oxyhemoglobin Sodium Potassium Chloride Carbon Dioxide BUN Creatinine Glucose POC Glucose 243 H 250 H 268 H Hemoglobin A1c Calcium Ferritin AST ALT Lactate Dehydrogenase Troponin T C-Reactive Protein NT-Pro-B Natriuret Pep Albumin Triglycerides HDL Cholesterol PTH Intact Arterial Blood Glucose Urine WBC (Auto) Urine Creatinine Urine Total Protein Coronavirus (PCR) 12/29/20 12/30/20 12/30/20 21:47 07:26 08:27 WBC 25.1 H RBC 5.22 H Hgb Hct Seg Neuts % (Manual) Lymphocytes % (Manual) Nucleated RBC % Seg Neutrophils # Man Lymphocytes # (Manual) PT INR APTT D-Dimer POC ABG pCO2 POC ABG pO2 ABG pO2 ABG O2 Saturation ABG Oxyhemoglobin ABG Potassium ABG Glucose Oxyhemoglobin Sodium Potassium Chloride Carbon Dioxide BUN Creatinine Glucose POC Glucose 250 H 193 H Hemoglobin A1c Calcium Ferritin AST ALT Lactate Dehydrogenase Troponin T C-Reactive Protein NT-Pro-B Natriuret Pep Albumin Triglycerides HDL Cholesterol PTH Intact Arterial Blood Glucose Urine WBC (Auto) Urine Creatinine Urine Total Protein Coronavirus (PCR) 12/30/20 12/30/20 12/30/20 08:27 11:29 19:50 WBC RBC Hgb Hct Seg Neuts % (Manual) Lymphocytes % (Manual) Nucleated RBC % Seg Neutrophils # Man Lymphocytes # (Manual) PT INR APTT D-Dimer POC ABG pCO2 POC ABG pO2 ABG pO2 46.0 L ABG O2 Saturation 80.2 L ABG Oxyhemoglobin ABG Potassium ABG Glucose Oxyhemoglobin 78.0 L Sodium Potassium Chloride Carbon Dioxide BUN 60 H Creatinine Glucose 240 H POC Glucose 270 H Hemoglobin A1c Calcium Ferritin AST ALT Lactate Dehydrogenase Troponin T C-Reactive Protein NT-Pro-B Natriuret Pep Albumin Triglycerides HDL Cholesterol PTH Intact Arterial Blood Glucose Urine WBC (Auto) Urine Creatinine Urine Total Protein Coronavirus (PCR) 12/30/20 12/31/20 12/31/20 21:44 06:03 07:21 WBC RBC Hgb Hct Seg Neuts % (Manual) Lymphocytes % (Manual) Nucleated RBC % Seg Neutrophils # Man Lymphocytes # (Manual) PT INR APTT D-Dimer POC ABG pCO2 POC ABG pO2 ABG pO2 ABG O2 Saturation ABG Oxyhemoglobin ABG Potassium ABG Glucose Oxyhemoglobin Sodium Potassium Chloride Carbon Dioxide BUN 65 H Creatinine Glucose 246 H POC Glucose 273 H 227 H Hemoglobin A1c Calcium Ferritin AST ALT Lactate Dehydrogenase Troponin T C-Reactive Protein NT-Pro-B Natriuret Pep Albumin Triglycerides HDL Cholesterol PTH Intact Arterial Blood Glucose Urine WBC (Auto) Urine Creatinine Urine Total Protein Coronavirus (PCR) 12/31/20 12/31/20 12/31/20 11:28 17:20 21:12 WBC RBC Hgb Hct Seg Neuts % (Manual) Lymphocytes % (Manual) Nucleated RBC % Seg Neutrophils # Man Lymphocytes # (Manual) PT INR APTT D-Dimer POC ABG pCO2 POC ABG pO2 ABG pO2 ABG O2 Saturation ABG Oxyhemoglobin ABG Potassium ABG Glucose Oxyhemoglobin Sodium Potassium Chloride Carbon Dioxide BUN Creatinine Glucose POC Glucose 232 H 256 H 239 H Hemoglobin A1c Calcium Ferritin AST ALT Lactate Dehydrogenase Troponin T C-Reactive Protein NT-Pro-B Natriuret Pep Albumin Triglycerides HDL Cholesterol PTH Intact Arterial Blood Glucose Urine WBC (Auto) Urine Creatinine Urine Total Protein Coronavirus (PCR) 01/01/21 01/01/21 01/01/21 06:02 06:02 10:41 WBC 21.3 H RBC Hgb Hct Seg Neuts % (Manual) Lymphocytes % (Manual) Nucleated RBC % Seg Neutrophils # Man Lymphocytes # (Manual) PT INR APTT D-Dimer POC ABG pCO2 POC ABG pO2 ABG pO2 ABG O2 Saturation ABG Oxyhemoglobin ABG Potassium ABG Glucose Oxyhemoglobin Sodium Potassium Chloride Carbon Dioxide BUN 67 H Creatinine Glucose 256 H POC Glucose 225 H Hemoglobin A1c Calcium Ferritin AST ALT Lactate Dehydrogenase Troponin T C-Reactive Protein NT-Pro-B Natriuret Pep Albumin Triglycerides HDL Cholesterol PTH Intact Arterial Blood Glucose Urine WBC (Auto) Urine Creatinine Urine Total Protein Coronavirus (PCR) 01/01/21 01/01/21 01/01/21 14:33 19:02 21:48 WBC RBC Hgb Hct Seg Neuts % (Manual) Lymphocytes % (Manual) Nucleated RBC % Seg Neutrophils # Man Lymphocytes # (Manual) PT INR APTT D-Dimer POC ABG pCO2 POC ABG pO2 ABG pO2 ABG O2 Saturation ABG Oxyhemoglobin ABG Potassium ABG Glucose Oxyhemoglobin Sodium Potassium Chloride Carbon Dioxide BUN Creatinine Glucose POC Glucose 230 H 221 H 270 H Hemoglobin A1c Calcium Ferritin AST ALT Lactate Dehydrogenase Troponin T C-Reactive Protein NT-Pro-B Natriuret Pep Albumin Triglycerides HDL Cholesterol PTH Intact Arterial Blood Glucose Urine WBC (Auto) Urine Creatinine Urine Total Protein Coronavirus (PCR) 01/02/21 01/02/21 01/02/21 06:36 07:30 10:27 WBC RBC Hgb Hct Seg Neuts % (Manual) Lymphocytes % (Manual) Nucleated RBC % Seg Neutrophils # Man Lymphocytes # (Manual) PT INR APTT D-Dimer POC ABG pCO2 POC ABG pO2 ABG pO2 ABG O2 Saturation ABG Oxyhemoglobin ABG Potassium ABG Glucose Oxyhemoglobin Sodium Potassium Chloride Carbon Dioxide BUN 69 H Creatinine 1.4 H Glucose 284 H POC Glucose 227 H Hemoglobin A1c Calcium Ferritin 1938.0 H AST ALT Lactate Dehydrogenase Troponin T C-Reactive Protein NT-Pro-B Natriuret Pep Albumin Triglycerides HDL Cholesterol PTH Intact Arterial Blood Glucose Urine WBC (Auto) Urine Creatinine Urine Total Protein Coronavirus (PCR) 01/02/21 01/02/21 10:27 11:29 WBC RBC Hgb Hct Seg Neuts % (Manual) Lymphocytes % (Manual) Nucleated RBC % Seg Neutrophils # Man Lymphocytes # (Manual) PT INR APTT D-Dimer POC ABG pCO2 POC ABG pO2 ABG pO2 ABG O2 Saturation ABG Oxyhemoglobin ABG Potassium ABG Glucose Oxyhemoglobin Sodium Potassium Chloride Carbon Dioxide BUN Creatinine Glucose POC Glucose 270 H Hemoglobin A1c Calcium Ferritin AST ALT Lactate Dehydrogenase 683 H Troponin T C-Reactive Protein NT-Pro-B Natriuret Pep Albumin Triglycerides HDL Cholesterol PTH Intact Arterial Blood Glucose Urine WBC (Auto) Urine Creatinine Urine Total Protein Coronavirus (PCR) Allied health notes reviewed: nursing
--- NOTE | 2021-01-02 13:52 | Progress Note ---
Assessment and Plan Cultures: SARS CoV2 PCR: positive A/P: 50/M with HTN, CHF, non-compliance, currently incarcerated admitted to the hospital with: #Sepsis, secondary to bilateral pneumonia due to COVID-19: severe disease. Admission labs: procalcitonin 1.45, D-dimer >10,000, CRP 5.2. CRP down to 1.1. #Acute hypoxic respiratory failure: on BiPAP-->HFNC 100%40L. #NAVJOT: Improving/Renally dose antibiotics. #Morbid obesity #Bilateral DVTs: Anticoagulation per primary Recs: Completed Remdesivir. Completed empiric antibiotics. Continue on steroids x 10 days Does not meet hospital criteria for Actemra based on CRP Leukocytosis likely secondary to high-dose steroids Home O2 eval prior to DC Dain Bergeron MD [facility] ([facility] O: [phone] F: [phone] Subjective Date of service: 01/02/21 Principal diagnosis: COVID-19 PNA Interval history: Afebrile, white count remains elevated. Objective - Exam Narrative Exam: Physical exam deferred to reduce risk of transmission of COVID-19. Please refer to primary team's note. - Constitutional Vitals: Vital Signs Temp Pulse Resp BP Pulse Ox 98.0 F 120 H 32 H 124/67 90 01/02/21 12:05 01/02/21 13:00 01/02/21 13:00 01/02/21 13:00 01/02/21 13:37 Temperature -Last 24 Hours Temperature 98.0 F Temperature 98.9 F Temperature 99.0 F Temperature 99.5 F Temperature 98.5 F - Labs CBC & Chem 7: 01/01/21 06:02 01/02/21 06:36 Labs: Abnormal lab results 01/01/21 01/01/21 01/01/21 Range/Units 14:33 19:02 21:48 BUN (9-20) mg/dL Creatinine (0.8-1.3) mg/dL Glucose (75-100) mg/dL POC Glucose 230 H 221 H 270 H (70-105) mg/dL Ferritin (30.0-300.0) ng/mL Lactate Dehydrogenase (91-180) units/L 01/02/21 01/02/21 01/02/21 Range/Units 06:36 07:30 10:27 BUN 69 H (9-20) mg/dL Creatinine 1.4 H (0.8-1.3) mg/dL Glucose 284 H (75-100) mg/dL POC Glucose 227 H (70-105) mg/dL Ferritin 1938.0 H (30.0-300.0) ng/mL Lactate Dehydrogenase (91-180) units/L 01/02/21 01/02/21 Range/Units 10:27 11:29 BUN (9-20) mg/dL Creatinine (0.8-1.3) mg/dL Glucose (75-100) mg/dL POC Glucose 270 H (70-105) mg/dL Ferritin (30.0-300.0) ng/mL Lactate Dehydrogenase 683 H (91-180) units/L
[2021-01-03] MEDS: INSULIN GLARGINE 100 UNITS/ML SUB-Q SCH (00:22)
[2021-01-03] MEDS: INSULIN LISPRO 100 UNIT/ML SUB-Q SCH ×7 (00:22→17:59)
[2021-01-03] MEDS: METOPROLOL TARTRATE 5 MG/5 ML INJ IV SCH ×4 (00:24→17:46)
[2021-01-03 05:15] LABS: Hematocrit 36.2 % (35.5-45.6); Hemoglobin 11.7 gm/dl (11.8-15.2); Mean Corpuscular HGB Conc 32 % (32-34); Mean Corpuscular Volume 88 fl (84-94); Platelet Count 117 K/mm3 (140-440); Red Blood Count 4.13 M/mm3 (3.65-5.03); Red Cell Distribution Width 14.1 % (13.2-15.2)
[2021-01-03 05:35] LABS: BUN/Creatinine Ratio 62; Blood Urea Nitrogen 68 mg/dL (9-20); Calcium 7.9 mg/dL (8.4-10.2); Hemolysis Index 40
[2021-01-03] MEDS: methylPREDNISolone Sod Succinate 125 MG/2 ML INJ IV SCH ×2 (06:28→13:08)
[2021-01-03 10:24] LABS: Hypochromasia Few; Platelet Estimate Consistent w Auto; Total Cells Counted 100
[2021-01-03] MEDS: ENOXAPARIN 150 MG/1 ML INJ SUB-Q SCH (10:43)
[2021-01-03] MEDS: ZINC SULFATE 220 MG CAP PO SCH (10:43)
[2021-01-03] MEDS: CHOLECALCIFEROL (VIT D3) 1000 UNIT (25 mcg) TAB PO SCH (10:43)
[2021-01-03] MEDS: ASCORBIC ACID 500 MG TAB PO SCH (10:43)
--- NOTE | 2021-01-03 12:26 | Progress Note ---
Assessment and Plan 50 y/o obese male, COVID positive admitted with acute hypoxic respiratory failure, renal failure and elevated D-Dimer 01/03/21: Worsening renal function and respiratory status. Will try Precedex to see if this will help patient keep bipap therapy on. 01/02/21: Bump in Cr today. did not give lasix yesterday. AWait renal recs for today. Continue PRN bipap, and combo therapy. Guarded prognosis. 01/01/21: Follow up renal recs. Cr stable but will hold on any further lasix therapy today until they make recs. Wean Bipap. Continue steroids. Anticoagulation. 12/31/20: Ordered lasix for now. If ok with renal will order another dose for later this evening. Patient has extensive bilateral DVT, very well could pass a PE but blood gas would not suggest. Also, ABG's are not helpful in this population as we know they are going to be severely hypoxic. Clinical situation determines intubation 99% of the time. Need to give patient the best chance possible to avoid intubation as the mortality rate with intubation and covid is extremely high. As long as sat can be maintained above 88% even with bipap, prefer to avoid intubation. Needs net negative fluid balance. Guarded prognosis. 12/30/20: Ordered another dose of lasix this am. Prone. Anticoagulation for clots. Guarded Prognosis 12/29/20: COntinue anticoagulation. Prone if possible. Awaiting COVID floor bed. Renal gave lasix this morning. 12/28/20: Reviewed IR note, appreciate their eval. Will start to wean steroids later this week. Continue anticoagulation. Prone if able. Ok with transfer back to floor as he has not required continuous bipap. Still would consider diuresis. 12/27/20: Need to remember that BNP was greater thann 6k on admit. Now has bilateral DVT's extensive. Spoke with IMS yesterday with plans to consult vascular for evaluation already on therapeutic lovenox. Prone if possible. continue steroids. Guarded prognosis. 12/26/20: Lasix has not been given lately. Will hold off today as well. Follow up renal recs. Prone patient if able. Continue steroids. Guarded prognosis. 12/23/20: Lasix 40 again today. Suggest daily therapy at least for several days to help with volume overload. This could help with oxygenation. Steroids and Remdesivir. Prone if able. BP control. Guarded prognosis. 1. Ordered stat BNP 2. Agree with Echo, follow up read as it has been done per the chart 3. Agree with steroids right now 4. Was given lasix yesterday and renal function improved. Agree with continued therapy, and follow up renal recs 5. Remdesivir ordered by ID 6. Prone as tolerated during the day and sleep prone at night 7. Guarded prognosis. Subjective Date of service: 01/03/21 Principal diagnosis: COVID-19 PNA Interval history: Refused bipap last night, had distress this am and now is willing to wear it. Sats stable but marginal Objective Vital Signs - 12hr 01/03/21 01/03/21 01/03/21 01:00 02:00 03:00 Temperature Pulse Rate 99 H 109 H 113 H Pulse Rate [ From Monitor] Respiratory 32 H 21 17 Rate Blood Pressure 144/79 136/70 142/61 O2 Sat by Pulse 78 L 78 L 81 L Oximetry 01/03/21 01/03/21 01/03/21 03:55 04:00 04:15 Temperature 98.5 F Pulse Rate 111 H 111 H Pulse Rate [ From Monitor] Respiratory 31 H Rate Blood Pressure 145/70 O2 Sat by Pulse 94 Oximetry 01/03/21 01/03/21 01/03/21 05:00 06:00 06:30 Temperature Pulse Rate 113 H 110 H 117 H Pulse Rate [ From Monitor] Respiratory 23 25 H Rate Blood Pressure 151/67 151/67 118/69 O2 Sat by Pulse Oximetry 01/03/21 01/03/21 01/03/21 07:00 07:35 08:00 Temperature 99.0 F Pulse Rate 112 H 100 H Pulse Rate [ 105 H From Monitor] Respiratory 24 24 Rate Blood Pressure 123/68 107/71 O2 Sat by Pulse 77 L 96 Oximetry 01/03/21 01/03/21 01/03/21 08:45 09:01 09:06 Temperature Pulse Rate 133 H 129 H Pulse Rate [ From Monitor] Respiratory 53 H 36 H Rate Blood Pressure 125/80 125/80 O2 Sat by Pulse 91 88 Oximetry 01/03/21 01/03/21 10:01 11:01 Temperature Pulse Rate 112 H 112 H Pulse Rate [ From Monitor] Respiratory 29 H 32 H Rate Blood Pressure 113/84 120/67 O2 Sat by Pulse Oximetry CBC and BMP: 01/03/21 23:10 01/04/21 12:25 ABG, PT/INR, D-dimer: ABG ABG pH 7.409 pH Units (7.350-7.450) 12/30/20 19:50 POC ABG pCO2 29.6 mmHg (32.0-48.0) L 12/23/20 13:06 ABG pCO2 41.2 mm Hg 12/30/20 19:50 POC ABG pO2 57.8 mmHg (83-108) L 12/23/20 13:06 ABG pO2 46.0 mm Hg (80.0-90.0) L 12/30/20 19:50 POC ABG HCO3 19.9 12/23/20 13:06 ABG O2 Saturation 80.2 % (95.0-99.0) L 12/30/20 19:50 PT/INR, D-dimer PT 16.0 Sec. (12.2-14.9) H 12/28/20 15:00 INR 1.23 (0.87-1.13) H 12/28/20 15:00 D-Dimer 803.94 ng/mlDDU (0-234) H 01/02/21 10:27 Abnormal lab findings: Abnormal Labs 12/20/20 12/20/20 12/20/20 11:31 11:31 11:31 WBC 16.5 H RBC 5.27 H Hgb Hct Plt Count Seg Neuts % (Manual) 90.0 H Lymphocytes % (Manual) 5.0 L Nucleated RBC % Seg Neutrophils # Man 14.9 H Lymphocytes # (Manual) 0.8 L PT INR APTT D-Dimer > 46726 H POC ABG pCO2 POC ABG pO2 ABG pO2 ABG O2 Saturation ABG Oxyhemoglobin ABG Potassium ABG Glucose Oxyhemoglobin Sodium 130 L Potassium Chloride 94.5 L Carbon Dioxide BUN 64 H Creatinine 2.6 H Glucose 154 H POC Glucose Hemoglobin A1c Calcium Ferritin AST ALT Lactate Dehydrogenase Troponin T C-Reactive Protein NT-Pro-B Natriuret Pep Albumin 3.5 L Triglycerides HDL Cholesterol PTH Intact Arterial Blood Glucose Urine WBC (Auto) Urine Creatinine Urine Total Protein Coronavirus (PCR) 12/20/20 12/21/20 12/21/20 11:31 06:10 06:10 WBC 20.1 H RBC 5.55 H Hgb 15.4 H Hct 47.3 H Plt Count Seg Neuts % (Manual) 89.0 H Lymphocytes % (Manual) Nucleated RBC % 1.0 H Seg Neutrophils # Man 17.9 H Lymphocytes # (Manual) 0.0 L PT INR APTT D-Dimer POC ABG pCO2 POC ABG pO2 ABG pO2 ABG O2 Saturation ABG Oxyhemoglobin ABG Potassium ABG Glucose Oxyhemoglobin Sodium 136 L Potassium Chloride Carbon Dioxide BUN 57 H Creatinine 1.8 H Glucose 193 H POC Glucose Hemoglobin A1c Calcium Ferritin AST ALT Lactate Dehydrogenase 10 L Troponin T 0.106 H* C-Reactive Protein 5.20 H NT-Pro-B Natriuret Pep Albumin Triglycerides 226 H HDL Cholesterol 31 L PTH Intact Arterial Blood Glucose Urine WBC (Auto) Urine Creatinine Urine Total Protein Coronavirus (PCR) 12/21/20 12/21/20 12/21/20 13:29 14:32 Unknown WBC RBC Hgb Hct Plt Count Seg Neuts % (Manual) Lymphocytes % (Manual) Nucleated RBC % Seg Neutrophils # Man Lymphocytes # (Manual) PT INR APTT D-Dimer POC ABG pCO2 POC ABG pO2 ABG pO2 ABG O2 Saturation ABG Oxyhemoglobin ABG Potassium ABG Glucose Oxyhemoglobin Sodium 134 L Potassium Chloride Carbon Dioxide BUN 57 H Creatinine 1.8 H Glucose 340 H POC Glucose Hemoglobin A1c Calcium 8.3 L Ferritin AST ALT Lactate Dehydrogenase Troponin T C-Reactive Protein NT-Pro-B Natriuret Pep 6191 H Albumin 3.3 L Triglycerides HDL Cholesterol PTH Intact Arterial Blood Glucose Urine WBC (Auto) Urine Creatinine Urine Total Protein Coronavirus (PCR) Positive A 12/22/20 12/22/20 12/22/20 05:56 05:56 17:21 WBC 26.6 H RBC 5.22 H Hgb Hct Plt Count Seg Neuts % (Manual) Lymphocytes % (Manual) Nucleated RBC % Seg Neutrophils # Man Lymphocytes # (Manual) PT INR APTT D-Dimer POC ABG pCO2 POC ABG pO2 ABG pO2 ABG O2 Saturation ABG Oxyhemoglobin ABG Potassium ABG Glucose Oxyhemoglobin Sodium Potassium Chloride Carbon Dioxide BUN 64 H Creatinine 2.0 H Glucose 227 H POC Glucose 188 H Hemoglobin A1c Calcium Ferritin AST ALT Lactate Dehydrogenase Troponin T C-Reactive Protein NT-Pro-B Natriuret Pep Albumin 3.4 L Triglycerides HDL Cholesterol PTH Intact Arterial Blood Glucose Urine WBC (Auto) Urine Creatinine Urine Total Protein Coronavirus (PCR) 12/23/20 12/23/20 12/23/20 00:40 00:40 05:15 WBC RBC Hgb Hct Plt Count Seg Neuts % (Manual) Lymphocytes % (Manual) Nucleated RBC % Seg Neutrophils # Man Lymphocytes # (Manual) PT INR APTT D-Dimer POC ABG pCO2 POC ABG pO2 ABG pO2 ABG O2 Saturation ABG Oxyhemoglobin ABG Potassium ABG Glucose Oxyhemoglobin Sodium Potassium 5.6 H Chloride Carbon Dioxide BUN 71 H Creatinine 1.8 H Glucose 225 H POC Glucose Hemoglobin A1c Calcium Ferritin AST 46 H ALT 83 H Lactate Dehydrogenase Troponin T C-Reactive Protein NT-Pro-B Natriuret Pep Albumin 3.6 L Triglycerides HDL Cholesterol PTH Intact Arterial Blood Glucose Urine WBC (Auto) 8.0 H Urine Creatinine 134.1 H Urine Total Protein 50 H Coronavirus (PCR) 12/23/20 12/23/20 12/23/20 05:15 05:15 11:47 WBC RBC Hgb Hct Plt Count Seg Neuts % (Manual) Lymphocytes % (Manual) Nucleated RBC % Seg Neutrophils # Man Lymphocytes # (Manual) PT INR APTT D-Dimer POC ABG pCO2 POC ABG pO2 ABG pO2 ABG O2 Saturation ABG Oxyhemoglobin ABG Potassium ABG Glucose Oxyhemoglobin Sodium Potassium Chloride Carbon Dioxide BUN Creatinine Glucose POC Glucose 257 H Hemoglobin A1c 7.2 H Calcium Ferritin AST ALT Lactate Dehydrogenase Troponin T C-Reactive Protein NT-Pro-B Natriuret Pep Albumin Triglycerides HDL Cholesterol PTH Intact 109.4 H Arterial Blood Glucose Urine WBC (Auto) Urine Creatinine Urine Total Protein Coronavirus (PCR) 12/23/20 12/23/20 12/24/20 13:06 16:41 00:02 WBC RBC Hgb Hct Plt Count Seg Neuts % (Manual) Lymphocytes % (Manual) Nucleated RBC % Seg Neutrophils # Man Lymphocytes # (Manual) PT INR APTT D-Dimer POC ABG pCO2 29.6 L POC ABG pO2 57.8 L ABG pO2 ABG O2 Saturation ABG Oxyhemoglobin 88.9 L ABG Potassium 4.7 H ABG Glucose 286 H Oxyhemoglobin Sodium Potassium Chloride Carbon Dioxide BUN Creatinine Glucose POC Glucose 199 H 213 H Hemoglobin A1c Calcium Ferritin AST ALT Lactate Dehydrogenase Troponin T C-Reactive Protein NT-Pro-B Natriuret Pep Albumin Triglycerides HDL Cholesterol PTH Intact Arterial Blood Glucose 286 H Urine WBC (Auto) Urine Creatinine Urine Total Protein Coronavirus (PCR) 12/24/20 12/24/20 12/24/20 04:56 05:17 12:03 WBC RBC Hgb Hct Plt Count Seg Neuts % (Manual) Lymphocytes % (Manual) Nucleated RBC % Seg Neutrophils # Man Lymphocytes # (Manual) PT INR APTT D-Dimer POC ABG pCO2 POC ABG pO2 ABG pO2 ABG O2 Saturation ABG Oxyhemoglobin ABG Potassium ABG Glucose Oxyhemoglobin Sodium Potassium 5.4 H Chloride Carbon Dioxide 18 L D BUN 74 H Creatinine 1.6 H Glucose 228 H POC Glucose 204 H 218 H Hemoglobin A1c Calcium Ferritin AST 44 H ALT 105 H Lactate Dehydrogenase Troponin T C-Reactive Protein NT-Pro-B Natriuret Pep Albumin 3.5 L Triglycerides HDL Cholesterol PTH Intact Arterial Blood Glucose Urine WBC (Auto) Urine Creatinine Urine Total Protein Coronavirus (PCR) 12/24/20 12/24/20 12/25/20 17:44 22:25 04:44 WBC RBC Hgb Hct Plt Count Seg Neuts % (Manual) Lymphocytes % (Manual) Nucleated RBC % Seg Neutrophils # Man Lymphocytes # (Manual) PT INR APTT D-Dimer POC ABG pCO2 POC ABG pO2 ABG pO2 ABG O2 Saturation ABG Oxyhemoglobin ABG Potassium ABG Glucose Oxyhemoglobin Sodium Potassium 5.5 H Chloride Carbon Dioxide BUN 58 H Creatinine Glucose 235 H POC Glucose 266 H 224 H Hemoglobin A1c Calcium Ferritin AST ALT Lactate Dehydrogenase Troponin T C-Reactive Protein NT-Pro-B Natriuret Pep Albumin Triglycerides HDL Cholesterol PTH Intact Arterial Blood Glucose Urine WBC (Auto) Urine Creatinine Urine Total Protein Coronavirus (PCR) 12/25/20 12/25/20 12/25/20 06:11 11:14 11:14 WBC RBC Hgb Hct Plt Count Seg Neuts % (Manual) Lymphocytes % (Manual) Nucleated RBC % Seg Neutrophils # Man Lymphocytes # (Manual) PT INR APTT D-Dimer 6017.45 H POC ABG pCO2 POC ABG pO2 ABG pO2 ABG O2 Saturation ABG Oxyhemoglobin ABG Potassium ABG Glucose Oxyhemoglobin Sodium Potassium Chloride Carbon Dioxide BUN Creatinine Glucose POC Glucose 191 H Hemoglobin A1c Calcium Ferritin 1385.0 H AST ALT Lactate Dehydrogenase Troponin T C-Reactive Protein NT-Pro-B Natriuret Pep Albumin Triglycerides HDL Cholesterol PTH Intact Arterial Blood Glucose Urine WBC (Auto) Urine Creatinine Urine Total Protein Coronavirus (PCR) 12/25/20 12/25/20 12/25/20 11:38 17:00 23:31 WBC RBC Hgb Hct Plt Count Seg Neuts % (Manual) Lymphocytes % (Manual) Nucleated RBC % Seg Neutrophils # Man Lymphocytes # (Manual) PT INR APTT D-Dimer POC ABG pCO2 POC ABG pO2 ABG pO2 ABG O2 Saturation ABG Oxyhemoglobin ABG Potassium ABG Glucose Oxyhemoglobin Sodium Potassium Chloride Carbon Dioxide BUN Creatinine Glucose POC Glucose 213 H 327 H 307 H Hemoglobin A1c Calcium Ferritin AST ALT Lactate Dehydrogenase Troponin T C-Reactive Protein NT-Pro-B Natriuret Pep Albumin Triglycerides HDL Cholesterol PTH Intact Arterial Blood Glucose Urine WBC (Auto) Urine Creatinine Urine Total Protein Coronavirus (PCR) 12/26/20 12/26/20 12/26/20 04:23 05:32 11:50 WBC RBC Hgb Hct Plt Count Seg Neuts % (Manual) Lymphocytes % (Manual) Nucleated RBC % Seg Neutrophils # Man Lymphocytes # (Manual) PT INR APTT D-Dimer POC ABG pCO2 POC ABG pO2 ABG pO2 ABG O2 Saturation ABG Oxyhemoglobin ABG Potassium ABG Glucose Oxyhemoglobin Sodium 146 H Potassium Chloride Carbon Dioxide BUN 49 H Creatinine Glucose 257 H POC Glucose 265 H 231 H Hemoglobin A1c Calcium Ferritin AST ALT Lactate Dehydrogenase Troponin T C-Reactive Protein NT-Pro-B Natriuret Pep Albumin Triglycerides HDL Cholesterol PTH Intact Arterial Blood Glucose Urine WBC (Auto) Urine Creatinine Urine Total Protein Coronavirus (PCR) 12/26/20 12/26/20 12/27/20 17:17 23:37 04:46 WBC RBC Hgb Hct Plt Count Seg Neuts % (Manual) Lymphocytes % (Manual) Nucleated RBC % Seg Neutrophils # Man Lymphocytes # (Manual) PT INR APTT D-Dimer POC ABG pCO2 POC ABG pO2 ABG pO2 ABG O2 Saturation ABG Oxyhemoglobin ABG Potassium ABG Glucose Oxyhemoglobin Sodium Potassium Chloride Carbon Dioxide BUN 53 H Creatinine Glucose 242 H POC Glucose 308 H 256 H Hemoglobin A1c Calcium Ferritin AST ALT 80 H Lactate Dehydrogenase Troponin T C-Reactive Protein NT-Pro-B Natriuret Pep Albumin 3.0 L Triglycerides HDL Cholesterol PTH Intact Arterial Blood Glucose Urine WBC (Auto) Urine Creatinine Urine Total Protein Coronavirus (PCR) 12/27/20 12/27/20 12/27/20 04:46 05:58 11:47 WBC 21.2 H RBC 5.17 H Hgb Hct Plt Count Seg Neuts % (Manual) Lymphocytes % (Manual) Nucleated RBC % Seg Neutrophils # Man Lymphocytes # (Manual) PT INR APTT D-Dimer POC ABG pCO2 POC ABG pO2 ABG pO2 ABG O2 Saturation ABG Oxyhemoglobin ABG Potassium ABG Glucose Oxyhemoglobin Sodium Potassium Chloride Carbon Dioxide BUN Creatinine Glucose POC Glucose 178 H 184 H Hemoglobin A1c Calcium Ferritin AST ALT Lactate Dehydrogenase Troponin T C-Reactive Protein NT-Pro-B Natriuret Pep Albumin Triglycerides HDL Cholesterol PTH Intact Arterial Blood Glucose Urine WBC (Auto) Urine Creatinine Urine Total Protein Coronavirus (PCR) 12/27/20 12/27/20 12/27/20 17:14 21:34 23:55 WBC RBC Hgb Hct Plt Count Seg Neuts % (Manual) Lymphocytes % (Manual) Nucleated RBC % Seg Neutrophils # Man Lymphocytes # (Manual) PT INR APTT D-Dimer POC ABG pCO2 POC ABG pO2 ABG pO2 ABG O2 Saturation ABG Oxyhemoglobin ABG Potassium ABG Glucose Oxyhemoglobin Sodium Potassium Chloride Carbon Dioxide BUN Creatinine Glucose POC Glucose 243 H 318 H 281 H Hemoglobin A1c Calcium Ferritin AST ALT Lactate Dehydrogenase Troponin T C-Reactive Protein NT-Pro-B Natriuret Pep Albumin Triglycerides HDL Cholesterol PTH Intact Arterial Blood Glucose Urine WBC (Auto) Urine Creatinine Urine Total Protein Coronavirus (PCR) 12/28/20 12/28/20 12/28/20 04:29 05:52 07:39 WBC RBC Hgb Hct Plt Count Seg Neuts % (Manual) Lymphocytes % (Manual) Nucleated RBC % Seg Neutrophils # Man Lymphocytes # (Manual) PT INR APTT D-Dimer POC ABG pCO2 POC ABG pO2 ABG pO2 ABG O2 Saturation ABG Oxyhemoglobin ABG Potassium ABG Glucose Oxyhemoglobin Sodium 135 L D Potassium 5.3 H D Chloride Carbon Dioxide 18 L D BUN 52 H Creatinine Glucose 280 H POC Glucose 267 H 261 H Hemoglobin A1c Calcium 7.9 L Ferritin AST ALT Lactate Dehydrogenase Troponin T C-Reactive Protein NT-Pro-B Natriuret Pep Albumin Triglycerides HDL Cholesterol PTH Intact Arterial Blood Glucose Urine WBC (Auto) Urine Creatinine Urine Total Protein Coronavirus (PCR) 12/28/20 12/28/20 12/28/20 11:56 15:00 15:00 WBC 19.0 H RBC 5.46 H Hgb 15.5 H Hct 47.9 H Plt Count Seg Neuts % (Manual) Lymphocytes % (Manual) Nucleated RBC % Seg Neutrophils # Man Lymphocytes # (Manual) PT 16.0 H INR 1.23 H APTT 38.4 H D-Dimer POC ABG pCO2 POC ABG pO2 ABG pO2 ABG O2 Saturation ABG Oxyhemoglobin ABG Potassium ABG Glucose Oxyhemoglobin Sodium Potassium Chloride Carbon Dioxide BUN Creatinine Glucose POC Glucose 271 H Hemoglobin A1c Calcium Ferritin AST ALT Lactate Dehydrogenase Troponin T C-Reactive Protein NT-Pro-B Natriuret Pep Albumin Triglycerides HDL Cholesterol PTH Intact Arterial Blood Glucose Urine WBC (Auto) Urine Creatinine Urine Total Protein Coronavirus (PCR) 12/28/20 12/28/20 12/29/20 16:32 22:05 04:39 WBC RBC Hgb Hct Plt Count Seg Neuts % (Manual) Lymphocytes % (Manual) Nucleated RBC % Seg Neutrophils # Man Lymphocytes # (Manual) PT INR APTT D-Dimer POC ABG pCO2 POC ABG pO2 ABG pO2 ABG O2 Saturation ABG Oxyhemoglobin ABG Potassium ABG Glucose Oxyhemoglobin Sodium Potassium 5.5 H Chloride Carbon Dioxide BUN 51 H Creatinine Glucose 257 H POC Glucose 246 H 324 H Hemoglobin A1c Calcium 8.1 L Ferritin AST ALT Lactate Dehydrogenase Troponin T C-Reactive Protein NT-Pro-B Natriuret Pep Albumin Triglycerides HDL Cholesterol PTH Intact Arterial Blood Glucose Urine WBC (Auto) Urine Creatinine Urine Total Protein Coronavirus (PCR) 12/29/20 12/29/20 12/29/20 07:16 11:41 15:43 WBC RBC Hgb Hct Plt Count Seg Neuts % (Manual) Lymphocytes % (Manual) Nucleated RBC % Seg Neutrophils # Man Lymphocytes # (Manual) PT INR APTT D-Dimer POC ABG pCO2 POC ABG pO2 ABG pO2 ABG O2 Saturation ABG Oxyhemoglobin ABG Potassium ABG Glucose Oxyhemoglobin Sodium Potassium Chloride Carbon Dioxide BUN Creatinine Glucose POC Glucose 243 H 250 H 268 H Hemoglobin A1c Calcium Ferritin AST ALT Lactate Dehydrogenase Troponin T C-Reactive Protein NT-Pro-B Natriuret Pep Albumin Triglycerides HDL Cholesterol PTH Intact Arterial Blood Glucose Urine WBC (Auto) Urine Creatinine Urine Total Protein Coronavirus (PCR) 12/29/20 12/30/20 12/30/20 21:47 07:26 08:27 WBC 25.1 H RBC 5.22 H Hgb Hct Plt Count Seg Neuts % (Manual) Lymphocytes % (Manual) Nucleated RBC % Seg Neutrophils # Man Lymphocytes # (Manual) PT INR APTT D-Dimer POC ABG pCO2 POC ABG pO2 ABG pO2 ABG O2 Saturation ABG Oxyhemoglobin ABG Potassium ABG Glucose Oxyhemoglobin Sodium Potassium Chloride Carbon Dioxide BUN Creatinine Glucose POC Glucose 250 H 193 H Hemoglobin A1c Calcium Ferritin AST ALT Lactate Dehydrogenase Troponin T C-Reactive Protein NT-Pro-B Natriuret Pep Albumin Triglycerides HDL Cholesterol PTH Intact Arterial Blood Glucose Urine WBC (Auto) Urine Creatinine Urine Total Protein Coronavirus (PCR) 12/30/20 12/30/20 12/30/20 08:27 11:29 19:50 WBC RBC Hgb Hct Plt Count Seg Neuts % (Manual) Lymphocytes % (Manual) Nucleated RBC % Seg Neutrophils # Man Lymphocytes # (Manual) PT INR APTT D-Dimer POC ABG pCO2 POC ABG pO2 ABG pO2 46.0 L ABG O2 Saturation 80.2 L ABG Oxyhemoglobin ABG Potassium ABG Glucose Oxyhemoglobin 78.0 L Sodium Potassium Chloride Carbon Dioxide BUN 60 H Creatinine Glucose 240 H POC Glucose 270 H Hemoglobin A1c Calcium Ferritin AST ALT Lactate Dehydrogenase Troponin T C-Reactive Protein NT-Pro-B Natriuret Pep Albumin Triglycerides HDL Cholesterol PTH Intact Arterial Blood Glucose Urine WBC (Auto) Urine Creatinine Urine Total Protein Coronavirus (PCR) 12/30/20 12/31/20 12/31/20 21:44 06:03 07:21 WBC RBC Hgb Hct Plt Count Seg Neuts % (Manual) Lymphocytes % (Manual) Nucleated RBC % Seg Neutrophils # Man Lymphocytes # (Manual) PT INR APTT D-Dimer POC ABG pCO2 POC ABG pO2 ABG pO2 ABG O2 Saturation ABG Oxyhemoglobin ABG Potassium ABG Glucose Oxyhemoglobin Sodium Potassium Chloride Carbon Dioxide BUN 65 H Creatinine Glucose 246 H POC Glucose 273 H 227 H Hemoglobin A1c Calcium Ferritin AST ALT Lactate Dehydrogenase Troponin T C-Reactive Protein NT-Pro-B Natriuret Pep Albumin Triglycerides HDL Cholesterol PTH Intact Arterial Blood Glucose Urine WBC (Auto) Urine Creatinine Urine Total Protein Coronavirus (PCR) 12/31/20 12/31/20 12/31/20 11:28 17:20 21:12 WBC RBC Hgb Hct Plt Count Seg Neuts % (Manual) Lymphocytes % (Manual) Nucleated RBC % Seg Neutrophils # Man Lymphocytes # (Manual) PT INR APTT D-Dimer POC ABG pCO2 POC ABG pO2 ABG pO2 ABG O2 Saturation ABG Oxyhemoglobin ABG Potassium ABG Glucose Oxyhemoglobin Sodium Potassium Chloride Carbon Dioxide BUN Creatinine Glucose POC Glucose 232 H 256 H 239 H Hemoglobin A1c Calcium Ferritin AST ALT Lactate Dehydrogenase Troponin T C-Reactive Protein NT-Pro-B Natriuret Pep Albumin Triglycerides HDL Cholesterol PTH Intact Arterial Blood Glucose Urine WBC (Auto) Urine Creatinine Urine Total Protein Coronavirus (PCR) 01/01/21 01/01/21 01/01/21 06:02 06:02 10:41 WBC 21.3 H RBC Hgb Hct Plt Count Seg Neuts % (Manual) Lymphocytes % (Manual) Nucleated RBC % Seg Neutrophils # Man Lymphocytes # (Manual) PT INR APTT D-Dimer POC ABG pCO2 POC ABG pO2 ABG pO2 ABG O2 Saturation ABG Oxyhemoglobin ABG Potassium ABG Glucose Oxyhemoglobin Sodium Potassium Chloride Carbon Dioxide BUN 67 H Creatinine Glucose 256 H POC Glucose 225 H Hemoglobin A1c Calcium Ferritin AST ALT Lactate Dehydrogenase Troponin T C-Reactive Protein NT-Pro-B Natriuret Pep Albumin Triglycerides HDL Cholesterol PTH Intact Arterial Blood Glucose Urine WBC (Auto) Urine Creatinine Urine Total Protein Coronavirus (PCR) 01/01/21 01/01/21 01/01/21 14:33 19:02 21:48 WBC RBC Hgb Hct Plt Count Seg Neuts % (Manual) Lymphocytes % (Manual) Nucleated RBC % Seg Neutrophils # Man Lymphocytes # (Manual) PT INR APTT D-Dimer POC ABG pCO2 POC ABG pO2 ABG pO2 ABG O2 Saturation ABG Oxyhemoglobin ABG Potassium ABG Glucose Oxyhemoglobin Sodium Potassium Chloride Carbon Dioxide BUN Creatinine Glucose POC Glucose 230 H 221 H 270 H Hemoglobin A1c Calcium Ferritin AST ALT Lactate Dehydrogenase Troponin T C-Reactive Protein NT-Pro-B Natriuret Pep Albumin Triglycerides HDL Cholesterol PTH Intact Arterial Blood Glucose Urine WBC (Auto) Urine Creatinine Urine Total Protein Coronavirus (PCR) 01/02/21 01/02/21 01/02/21 06:36 07:30 10:27 WBC RBC Hgb Hct Plt Count Seg Neuts % (Manual) Lymphocytes % (Manual) Nucleated RBC % Seg Neutrophils # Man Lymphocytes # (Manual) PT INR APTT D-Dimer 803.94 H POC ABG pCO2 POC ABG pO2 ABG pO2 ABG O2 Saturation ABG Oxyhemoglobin ABG Potassium ABG Glucose Oxyhemoglobin Sodium Potassium Chloride Carbon Dioxide BUN 69 H Creatinine 1.4 H Glucose 284 H POC Glucose 227 H Hemoglobin A1c Calcium Ferritin AST ALT Lactate Dehydrogenase Troponin T C-Reactive Protein NT-Pro-B Natriuret Pep Albumin Triglycerides HDL Cholesterol PTH Intact Arterial Blood Glucose Urine WBC (Auto) Urine Creatinine Urine Total Protein Coronavirus (PCR) 01/02/21 01/02/21 01/02/21 10:27 10:27 11:29 WBC RBC Hgb Hct Plt Count Seg Neuts % (Manual) Lymphocytes % (Manual) Nucleated RBC % Seg Neutrophils # Man Lymphocytes # (Manual) PT INR APTT D-Dimer POC ABG pCO2 POC ABG pO2 ABG pO2 ABG O2 Saturation ABG Oxyhemoglobin ABG Potassium ABG Glucose Oxyhemoglobin Sodium Potassium Chloride Carbon Dioxide BUN Creatinine Glucose POC Glucose 270 H Hemoglobin A1c Calcium Ferritin 1938.0 H AST ALT Lactate Dehydrogenase 683 H Troponin T C-Reactive Protein NT-Pro-B Natriuret Pep Albumin Triglycerides HDL Cholesterol PTH Intact Arterial Blood Glucose Urine WBC (Auto) Urine Creatinine Urine Total Protein Coronavirus (PCR) 01/02/21 01/02/21 01/03/21 17:06 21:23 04:40 WBC 23.3 H RBC Hgb 11.7 L Hct Plt Count 117 L Seg Neuts % (Manual) 99.0 H Lymphocytes % (Manual) Nucleated RBC % Seg Neutrophils # Man 23.1 H Lymphocytes # (Manual) 0.0 L PT INR APTT D-Dimer POC ABG pCO2 POC ABG pO2 ABG pO2 ABG O2 Saturation ABG Oxyhemoglobin ABG Potassium ABG Glucose Oxyhemoglobin Sodium Potassium Chloride Carbon Dioxide BUN Creatinine Glucose POC Glucose 272 H 225 H Hemoglobin A1c Calcium Ferritin AST ALT Lactate Dehydrogenase Troponin T C-Reactive Protein NT-Pro-B Natriuret Pep Albumin Triglycerides HDL Cholesterol PTH Intact Arterial Blood Glucose Urine WBC (Auto) Urine Creatinine Urine Total Protein Coronavirus (PCR) 01/03/21 01/03/21 01/03/21 04:40 07:19 12:16 WBC RBC Hgb Hct Plt Count Seg Neuts % (Manual) Lymphocytes % (Manual) Nucleated RBC % Seg Neutrophils # Man Lymphocytes # (Manual) PT INR APTT D-Dimer POC ABG pCO2 POC ABG pO2 ABG pO2 ABG O2 Saturation ABG Oxyhemoglobin ABG Potassium ABG Glucose Oxyhemoglobin Sodium 135 L D Potassium Chloride Carbon Dioxide BUN 68 H Creatinine Glucose 243 H POC Glucose 225 H 299 H Hemoglobin A1c Calcium 7.9 L Ferritin AST ALT Lactate Dehydrogenase Troponin T C-Reactive Protein NT-Pro-B Natriuret Pep Albumin Triglycerides HDL Cholesterol PTH Intact Arterial Blood Glucose Urine WBC (Auto) Urine Creatinine Urine Total Protein Coronavirus (PCR) Allied health notes reviewed: nursing
--- NOTE | 2021-01-03 13:10 | Progress Note ---
Assessment and Plan Cultures: SARS CoV2 PCR: positive A/P: 50/M with HTN, CHF, non-compliance, currently incarcerated admitted to the hospital with: #Sepsis, secondary to bilateral pneumonia due to COVID-19: severe disease. Admission labs: procalcitonin 1.45, D-dimer >10,000, CRP 5.2. CRP down to 1.1. #Acute hypoxic respiratory failure: on BiPAP-->HFNC 100%40L. #NAVJOT: Improving/Renally dose antibiotics. #Morbid obesity #Bilateral DVTs: Anticoagulation per primary Recs: Completed Remdesivir. Completed empiric antibiotics. Continue on steroids x 10 days Does not meet hospital criteria for Actemra based on CRP Leukocytosis likely secondary to high-dose steroids Home O2 eval prior to DC Dain Bergeron MD [facility] ([facility] O: [phone] F: [phone] Subjective Date of service: 01/03/21 Principal diagnosis: COVID-19 PNA Interval history: Afebrile, white count elevated 23.3. On BiPAP. Objective - Exam Narrative Exam: Physical exam deferred to reduce risk of transmission of COVID-19. Please refer to primary team's note. - Constitutional Vitals: Vital Signs Temp Pulse Resp BP Pulse Ox 99.0 F 123 H 35 H 96/69 96 01/03/21 07:35 01/03/21 12:44 01/03/21 12:01 01/03/21 12:44 01/03/21 12:00 Temperature -Last 24 Hours Temperature 99.0 F Temperature 98.5 F Temperature 97.6 F Temperature 97.7 F - Labs CBC & Chem 7: 01/03/21 04:40 01/03/21 04:40 Labs: Abnormal lab results 01/02/21 01/02/21 01/02/21 Range/Units 10:27 17:06 21:23 WBC (4.5-11.0) K/mm3 Hgb (11.8-15.2) gm/dl Plt Count (140-440) K/mm3 Seg Neuts % (Manual) (40.0-70.0) % Seg Neutrophils # Man (1.8-7.7) K/mm3 Lymphocytes # (Manual) (1.2-5.4) K/mm3 D-Dimer 803.94 H (0-234) ng/mlDDU Sodium (137-145) mmol/L BUN (9-20) mg/dL Glucose (75-100) mg/dL POC Glucose 272 H 225 H (70-105) mg/dL Calcium (8.4-10.2) mg/dL 01/03/21 01/03/21 01/03/21 Range/Units 04:40 04:40 07:19 WBC 23.3 H (4.5-11.0) K/mm3 Hgb 11.7 L (11.8-15.2) gm/dl Plt Count 117 L (140-440) K/mm3 Seg Neuts % (Manual) 99.0 H (40.0-70.0) % Seg Neutrophils # Man 23.1 H (1.8-7.7) K/mm3 Lymphocytes # (Manual) 0.0 L (1.2-5.4) K/mm3 D-Dimer (0-234) ng/mlDDU Sodium 135 L D (137-145) mmol/L BUN 68 H (9-20) mg/dL Glucose 243 H (75-100) mg/dL POC Glucose 225 H (70-105) mg/dL Calcium 7.9 L (8.4-10.2) mg/dL 01/03/21 Range/Units 12:16 WBC (4.5-11.0) K/mm3 Hgb (11.8-15.2) gm/dl Plt Count (140-440) K/mm3 Seg Neuts % (Manual) (40.0-70.0) % Seg Neutrophils # Man (1.8-7.7) K/mm3 Lymphocytes # (Manual) (1.2-5.4) K/mm3 D-Dimer (0-234) ng/mlDDU Sodium (137-145) mmol/L BUN (9-20) mg/dL Glucose (75-100) mg/dL POC Glucose 299 H (70-105) mg/dL Calcium (8.4-10.2) mg/dL
[2021-01-03] MEDS ORDERED: LORazepam 2 MG/ML VIAL IV ONE (21:15)
[2021-01-03] MEDS ORDERED: SUCCINYLCHOLINE CHLORIDE 200 MG/10 ML INJ MDV ONE (22:07)
[2021-01-03] MEDS ORDERED: propofoL 200 MG/20 ML VIAL IV ONE (22:07)
[2021-01-03] MEDS ORDERED: LIDOCAINE MPF (2%) 20 MG/1 ML VIAL 5 ML ONE (22:07)
[2021-01-03] MEDS ORDERED: NORepinephrine/NS 4 MG-250 ML 4 MG/250 ML BAG IV ONE (22:12)
[2021-01-03] MEDS ORDERED: SODIUM CHLORIDE 0.9% 1000 ML 1,000 ML ONE (22:15)
[2021-01-03] MEDS ORDERED: SODIUM BICARB 8.4% 50 MEQ/50 ML SYRINGE IV ONE (22:31)
[2021-01-03] MEDS ORDERED: EPINEPHrine 1 MG/10 ML SYRINGE ONE (22:31)
[2021-01-03] MEDS: NORepinephrine/NS 8 MG-250 ML 8 MG/250 ML INFUS..BTL IV SCH (22:50)
[2021-01-03] MEDS: fentaNYL DRIP Premix 2,000 MCG/100 ML BAG IV SCH (23:00)
[2021-01-03] MEDS ORDERED: fentaNYL DRIP Premix 2,000 MCG/100 ML BAG IV ONE (23:01)
--- NOTE | 2021-01-03 23:05 | Progress Note ---
Subjective Date of service: 01/03/21 Principal diagnosis: COVID-19 PNA Interval history: Called in for urgent intubation to critically ill patient to ICU by Dr Emerson. COVID-19 positive patient with respiratory failure. Patient is on BiPAP, SpO2 71-73%, HR-130, BP- 93/44 mmHg Given Phenylnephrine 200mcg - BP 148/88 mmHg Lidocaine 50mg Propofol 200 mg Succinylcholine 160 mg Intubated with Glidescope, ETT 7.5mm Position of the tube is confirmed by color change on CO2 sensor After intubation SpO2 went to single digits, no peripheral pulse. Code Blue called, started chest compressions. After one round of Epinephrine and Bicarb IV, pulse detected. Patient started on Levophed SpO2 78%, HR 144, BP 114/66 Objective - Constitutional Vitals: Vital Signs - 12hr 01/03/21 01/03/21 01/03/21 11:01 12:00 12:01 Temperature Pulse Rate 112 H 112 H 124 H Pulse Rate [ 112 H From Monitor] Respiratory 32 H 30 H 35 H Rate Blood Pressure 120/67 96/69 O2 Sat by Pulse 96 Oximetry 01/03/21 01/03/21 01/03/21 12:44 13:00 14:01 Temperature Pulse Rate 123 H 117 H 127 H Pulse Rate [ From Monitor] Respiratory 42 H 45 H Rate Blood Pressure 96/69 119/71 160/93 O2 Sat by Pulse 70 L Oximetry 01/03/21 01/03/21 01/03/21 14:15 15:01 16:00 Temperature Pulse Rate 139 H 110 H Pulse Rate [ 110 H From Monitor] Respiratory 46 H 45 H Rate Blood Pressure 160/93 O2 Sat by Pulse 78 L 64 L 96 Oximetry 01/03/21 01/03/21 01/03/21 16:01 16:14 17:01 Temperature Pulse Rate 138 H 113 H 131 H Pulse Rate [ From Monitor] Respiratory 57 H 53 H 48 H Rate Blood Pressure 149/72 186/128 O2 Sat by Pulse 66 L 66 L 73 L Oximetry 01/03/21 01/03/21 01/03/21 17:46 18:01 20:09 Temperature 97.7 F Pulse Rate 130 H 115 H Pulse Rate [ From Monitor] Respiratory 50 H Rate Blood Pressure 186/129 117/86 O2 Sat by Pulse 69 L Oximetry - Labs CBC & Chem 7: 01/03/21 04:40 01/03/21 04:40 Labs: Abnormal lab results 01/03/21 01/03/21 01/03/21 Range/Units 04:40 04:40 07:19 WBC 23.3 H (4.5-11.0) K/mm3 Hgb 11.7 L (11.8-15.2) gm/dl Plt Count 117 L (140-440) K/mm3 Seg Neuts % (Manual) 99.0 H (40.0-70.0) % Seg Neutrophils # Man 23.1 H (1.8-7.7) K/mm3 Lymphocytes # (Manual) 0.0 L (1.2-5.4) K/mm3 Sodium 135 L D (137-145) mmol/L BUN 68 H (9-20) mg/dL Glucose 243 H (75-100) mg/dL POC Glucose 225 H (70-105) mg/dL Calcium 7.9 L (8.4-10.2) mg/dL 01/03/21 01/03/21 01/03/21 Range/Units 12:16 15:51 22:12 WBC (4.5-11.0) K/mm3 Hgb (11.8-15.2) gm/dl Plt Count (140-440) K/mm3 Seg Neuts % (Manual) (40.0-70.0) % Seg Neutrophils # Man (1.8-7.7) K/mm3 Lymphocytes # (Manual) (1.2-5.4) K/mm3 Sodium (137-145) mmol/L BUN (9-20) mg/dL Glucose (75-100) mg/dL POC Glucose 299 H 290 H 242 H (70-105) mg/dL Calcium (8.4-10.2) mg/dL 01/03/21 Range/Units 22:38 WBC (4.5-11.0) K/mm3 Hgb (11.8-15.2) gm/dl Plt Count (140-440) K/mm3 Seg Neuts % (Manual) (40.0-70.0) % Seg Neutrophils # Man (1.8-7.7) K/mm3 Lymphocytes # (Manual) (1.2-5.4) K/mm3 Sodium (137-145) mmol/L BUN (9-20) mg/dL Glucose (75-100) mg/dL POC Glucose 217 H (70-105) mg/dL Calcium (8.4-10.2) mg/dL
[2021-01-03] MEDS ORDERED: fentaNYL 100 MCG/2 ML INJ IV PRN (23:11)
--- NOTE | 2021-01-03 23:23 | Progress Note ---
Assessment and Plan -- Acute respiratory failure with hypoxia Due to COVID-19 pneumonia Strongly encouraged the patient not to remove BiPAP Wean as tolerated, on high dose Solu-Medrol, pulmonary following Home O2 evaluation prior to discharge -- Coronavirus infection Continue isolation, high flow oxygen oxygen/BiPAP Completed Remdesivir. Completed empiric antibiotics 5 days Continue high-dose IV steroids x 10 days Does not meet hospital criteria for Actemra based on CRP -- Pneumonia Completed antibiotics, procalcitonin was high -- bilateral DVT on venous Doppler On full dose Lovenox Not stable to go for CTA/V/Q to rule out PE -- Acute kidney failure with vasomotor nephropathy; Present on admission. Creatinine continue to worsen again, nephrology following ---Hyperkalemia, treat according to protocol Closely monitor electrolytes, nephrology following -- morbid obesity BMI; 44.4 Patient needs weight reduction when medically stable He would benefit by bariatric surgical evaluation as outpatient For weight reduction program when he is medically stable -- Obesity hypoventilation syndrome Balanced diet, increase physical activity discharge, outpatient pulmonary follow-up for sleep study. Present on admission -- DVT prophylaxis On Lovenox -- Advance care planning prognosis discussed, patient counseled regarding coronavirus vaccination within 90 days of discharge. --Continue monitoring in MICU --Disposition; wean as tolerated, home O2 evaluation prior to discharge Follow pulmonary recommendations The high probability of a clinically significant, sudden or life threatening deterioration of the [CVS, renal, vascular, respiratory, ID ] system(s) required my full and direct attention, intervention and personal management. The aggregate critical care time was [45] minutes. This time is in addition to time spent performing reported procedures but includes the following: [x] Data Review and interpretation [x] Patient assessment and monitoring of vital signs [x] Documentation [x] Medication orders and management Daily hospital course 50 YO Male with HTN, CHF, Obesity Hypoventilation Syndrome, Medication Noncompliance, COVID-19 infection Diagnosed 1week prior to admission , was admitted through emergency room with acute respiratory failure requiring supplemental oxygen, tested positive for coronavirus, evaluated by ID managed appropriately per COVID-19 protocols, severely hypoxemic evaluated and managed by wax ball molder patient was requiring high flow nasal cannula oxygen, currently on BiPAP. Venous Doppler was positive for bilateral DVT on full dose anticoagulation with Lovenox, briefly transferred to telemetry, however patient became severely hypoxemic, as patient did not comply with BiPAP, patient was brought back to [facility] for close observation. Patient is being followed and managed by pulmonary, ID and nephrology services[for acute kidney injury] 12/21: Continue supportive care, wean oxygen as tolerated, Pulmonary, Nephrology, ID input. Renal improving. Continue steroids, defer Remedesivir to the ID. CPAP at night due to [place] 12/22: Patient remains persistently hypoxic, going to be moving the patient down to the [facility] as he is satting 86% on nonrebreather and also high flow. Prognosis very poor. 12/23: : Continue IMCU. Continue reinforcement for the patient management plan. Continue steroids and remdesivir. Monitor blood sugar closely. Poor prognosis 12/24: Extensive discussion about the patient to be compliant with management plan. Noted hyperkalemia Kayexalate ordered already for the patient. 12/25: Patient remains with poor prognosis hyperkalemia persisted despite improving renal function. Follow-up Kayexalate has been given this morning. Blood sugar still elevated this could be steroid-induced versus underlying diabetes we will check an A1c and in the meantime we will add Lantus at nighttime for better coverage. 12/26: Patient seen and examined remains profoundly hypoxic. Blood sugar still controlled at this time. He did report a fall yesterday but denied any head trauma CT of the head reviewed negative. Counseling provided on compliance. He also has profound bilateral DVT patient is on full dose anticoagulation while is not clear if this developed here on anticoagulation it most likely has been present prior to presentation. Nevertheless we will consult vascular to further evaluate. Electrolytes appear to have been repleted we will recheck labs in a.m. due to profound leukocytosis. 12/27; severely hypoxemic on 40 L high flow nasal cannula oxygen 100% FiO2 Wean as tolerated, poor prognosis 12/28; patient remains on 40 L high flow NC oxygen and intermittent BiPAP 100% FiO2 Wean as tolerated, closely monitor Pulmonary cleared to transfer out of [facility] to telemetry We will also transition full dose anticoagulation from Lovenox to Eliquis per protocol 12/29: Hyperkalemia, corrected with calcium gluconate, Kayexalate Monitor electrolytes Patient remains on high flow nasal cannula oxygen 40 L/100% FiO2/96 O2 sats. 12/30; remains on high flow oxygen 40 L, will wean as tolerated Hyperkalemia resolved, increase Lantus dose to 30 units subcu twice a day 12/31; last night patient went into severe hypoxemia , patient was on 40 L of high flow nasal cannula oxygen and 100% nonrebreather Still was hypoxemic , discussed with wax ball molder Dr. Tan , advised to place on BiPAP, patient was on BiPAP in the past, however refuses to wear it. patient strongly encouraged to comply with BiPAP.and today at the time of my examination patient is on BiPAP saturating well at 98% Encouraged the patient not to remove the BiPAP. He verbalized understanding Probation Worker considering transfer the patient to [facility] for close monitoring 01/01; patient is saturating well on BiPAP 96 to 97%, however is trying to remove it Strongly encouraged him to comply with BiPAP, also informed him the dangers of removing the BiPAP. 01/02; on BiPAP, 100% FiO2 saturating well at 96 to 97% Wean as tolerated, advised prone positioning as possible 01/03: Remains on continuous BiPAP with 100% FiO2, wean off as tolerated, guarded prognosis, follow inflammatory markers Subjective Date of service: 01/03/21 Principal diagnosis: COVID-19 PNA Interval history: Patient seen and examined. Medical records and medication list reviewed. Patient remains on continuous BiPAP Discussed plan of care at bedside with patient's RN. Objective - Exam Narrative Exam: Limited physical exam due to COVID-19 pandemic to minimize transmission of the disease and to preserve PPE. Vital reviewed and stable. GENERAL: well-developed morbidly obese -[place] male lying on bed on continuous BiPAP HEENT: Normocephalic. Atraumatic. NECK: Supple. CHEST/LUNGS: breathing with high flow O2 on BiPAP HEART/CARDIOVASCULAR: Heart rate stable on telemetry ABDOMEN: Visibly not distended SKIN: There is no rash NEURO: No focal motor deficit. Follows command. MUSCULOSKELETAL: No joint effusion EXTRIMITY: No swelling, no cyanosis or clubbing. PSYCH: Cooperative. - Constitutional Vitals: Vital Signs - 12hr 01/03/21 01/03/21 01/03/21 12:00 12:01 12:44 Temperature Pulse Rate 112 H 124 H 123 H Pulse Rate [ 112 H From Monitor] Respiratory 30 H 35 H Rate Blood Pressure 96/69 96/69 O2 Sat by Pulse 96 Oximetry 1001/03/21 01/03/21 13:00 14:01 14:15 Temperature Pulse Rate 117 H 127 H Pulse Rate [ From Monitor] Respiratory 42 H 45 H Rate Blood Pressure 119/71 160/93 O2 Sat by Pulse 70 L 78 L Oximetry 01/03/21 01/03/21 01/03/21 15:01 16:00 16:01 Temperature Pulse Rate 139 H 110 H 138 H Pulse Rate [ 110 H From Monitor] Respiratory 46 H 45 H 57 H Rate Blood Pressure 160/93 149/72 O2 Sat by Pulse 64 L 96 66 L Oximetry 01/03/21 01/03/21 01/03/21 16:14 17:01 17:46 Temperature Pulse Rate 113 H 131 H 130 H Pulse Rate [ From Monitor] Respiratory 53 H 48 H Rate Blood Pressure 186/128 186/129 O2 Sat by Pulse 66 L 73 L Oximetry 01/03/21 01/03/21 18:01 20:09 Temperature 97.7 F Pulse Rate 115 H Pulse Rate [ From Monitor] Respiratory 50 H Rate Blood Pressure 117/86 O2 Sat by Pulse 69 L Oximetry - Labs CBC & Chem 7: 01/03/21 23:10 01/04/21 12:25 Labs: Abnormal lab results 01/03/21 01/03/21 01/03/21 Range/Units 04:40 04:40 07:19 WBC 23.3 H (4.5-11.0) K/mm3 Hgb 11.7 L (11.8-15.2) gm/dl Plt Count 117 L (140-440) K/mm3 Seg Neuts % (Manual) 99.0 H (40.0-70.0) % Seg Neutrophils # Man 23.1 H (1.8-7.7) K/mm3 Lymphocytes # (Manual) 0.0 L (1.2-5.4) K/mm3 Sodium 135 L D (137-145) mmol/L BUN 68 H (9-20) mg/dL Glucose 243 H (75-100) mg/dL POC Glucose 225 H (70-105) mg/dL Calcium 7.9 L (8.4-10.2) mg/dL 01/03/21 01/03/21 01/03/21 Range/Units 12:16 15:51 22:12 WBC (4.5-11.0) K/mm3 Hgb (11.8-15.2) gm/dl Plt Count (140-440) K/mm3 Seg Neuts % (Manual) (40.0-70.0) % Seg Neutrophils # Man (1.8-7.7) K/mm3 Lymphocytes # (Manual) (1.2-5.4) K/mm3 Sodium (137-145) mmol/L BUN (9-20) mg/dL Glucose (75-100) mg/dL POC Glucose 299 H 290 H 242 H (70-105) mg/dL Calcium (8.4-10.2) mg/dL 01/03/21 Range/Units 22:38 WBC (4.5-11.0) K/mm3 Hgb (11.8-15.2) gm/dl Plt Count (140-440) K/mm3 Seg Neuts % (Manual) (40.0-70.0) % Seg Neutrophils # Man (1.8-7.7) K/mm3 Lymphocytes # (Manual) (1.2-5.4) K/mm3 Sodium (137-145) mmol/L BUN (9-20) mg/dL Glucose (75-100) mg/dL POC Glucose 217 H (70-105) mg/dL Calcium (8.4-10.2) mg/dL HEART Score - HEART Score Troponin: Troponin T < 0.010 ng/mL (0.00-0.029) 12/21/20 18:26
[2021-01-03 23:32] LABS: Hematocrit 32.2 % (35.5-45.6); Hemoglobin 10.3 gm/dl (11.8-15.2); Mean Corpuscular HGB Conc 32 % (32-34); Mean Corpuscular Volume 89 fl (84-94); Platelet Count 116 K/mm3 (140-440); Red Blood Count 3.62 M/mm3 (3.65-5.03); Red Cell Distribution Width 14.5 % (13.2-15.2)
[2021-01-03 23:40] LABS: Calcium 7.9 mg/dL (8.4-10.2)
[2021-01-03 23:43] LABS: INR 1.7 (0.87-1.13)
[2021-01-03 23:44] LABS: Partial Thromboplastin Time 38.8 Sec. (24.2-36.6)
--- NOTE | 2021-01-04 00:34 | Event Note ---
Date: 01/03/21 CHRISTY DILLON called on 50-year-old -[place] male who is on admission for COVID-19 pneumonia. He had gone into respiratory distress and fitness centre manager -Dr. Emerson had recommended intubation which was successfully done by anesthesia. Resuscitative measures were commenced according to ACLS protocol. Patient had 2 rounds of epinephrine and had return of spontaneous circulation. He will be closely monitored in the intensive care unit. We will follow up on labs and chest x-ray.
[2021-01-04] MEDS: METOPROLOL TARTRATE 5 MG/5 ML INJ IV SCH ×4 (00:52→21:02)
[2021-01-04] MEDS: ASCORBIC ACID 500 MG TAB PO SCH ×3 (00:52→21:02)
[2021-01-04] MEDS: ZINC SULFATE 220 MG CAP PO SCH ×3 (00:52→21:02)
[2021-01-04] MEDS: ENOXAPARIN 150 MG/1 ML INJ SUB-Q SCH (00:53)
[2021-01-04] MEDS ORDERED: INSULIN REGULAR, HUMAN 100 UNITS/1 ML IV ONE ×2 (01:03→23:51)
[2021-01-04] MEDS ORDERED: DEXTROSE 50% IN WATER (25GM) 50 ML SYRINGE IV ONE ×2 (01:04→23:52)
[2021-01-04] MEDS ORDERED: CALCIUM CHLORIDE 1,000 MG/10 ML SDV IVP ONE (01:07)
[2021-01-04] MEDS ORDERED: SODIUM POLYSTYRENE 15 GM/60 ML ORAL LIQD PO ONE (01:08)
[2021-01-04] MEDS ORDERED: SODIUM BICARB 8.4% 50 MEQ/50 ML SYRINGE IV ONE ×3 (01:14→23:49)
[2021-01-04] MEDS ORDERED: CALCIUM CHLORIDE 1,000 MG in SODIUM CHLORIDE 0.9% 100 ML IV ONE ×2 (01:20→23:50)
[2021-01-04] MEDS: methylPREDNISolone Sod Succinate 125 MG/2 ML INJ IV SCH ×4 (01:45→21:20)
[2021-01-04 01:57] LABS: Total Cells Counted 100
[2021-01-04 01:59] LABS: Hypochromasia Few; Platelet Estimate Consistent w Auto
--- NOTE | 2021-01-04 02:32 | XRay Report ---
CHEST 1 VIEW 01/04/2021 1:08 AM INDICATION / CLINICAL INFORMATION: oral intubation/GI intubation. COMPARISON: Chest x-ray 12/20/2020 FINDINGS: SUPPORT DEVICES: Endotracheal and nasogastric tubes project in expected position HEART / MEDIASTINUM: Small pneumomediastinum. LUNGS / PLEURA: Extensive bilateral airspace disease. No pneumothorax. ADDITIONAL FINDINGS: No significant additional findings. IMPRESSION: 1. Pneumomediastinum, new since December 20. 2. Extensive bilateral pneumonia, unchanged Signer Name: Domenic Davidson MD Signed: 01/04/2021 2:28 AM Workstation Name: [id number]
--- NOTE | 2021-01-04 02:47 | XRay Report ---
ABDOMEN 1 VIEW(S) 01/04/2021 2:21 AM INDICATION / CLINICAL INFORMATION: NGT. COMPARISON: None available. FINDINGS: The tip of an esophagogastric tube projects over the body of the stomach in expected position. Signer Name: Domenic Davidson MD Signed: 01/04/2021 2:42 AM Workstation Name: [id number]
[2021-01-04] MEDS: NORepinephrine/NS 8 MG-250 ML 8 MG/250 ML INFUS..BTL IV SCH ×3 (02:50→18:00)
[2021-01-04] MEDS: VASOPRESSIN 20 UNIT in SODIUM CHLORIDE 0.9% 100 ML IV SCH ×2 (03:29→12:58)
[2021-01-04] MEDS ORDERED: PHENYLEPHRINE 10 MG/1 ML INJ SDV IV SCH (04:15)
[2021-01-04] MEDS: PHENYLEPHRINE 100 MG in SODIUM CHLORIDE 0.9% 90 ML IV SCH (05:59)
[2021-01-04] MEDS ORDERED: NORepinephrine/NS 4 MG-250 ML 4 MG/250 ML BAG IV ONE (07:15)
[2021-01-04] MEDS ORDERED: NORepinephrine/NS 4 MG-250 ML IV ONE (09:00)
[2021-01-04] MEDS ORDERED: SODIUM CHLORIDE 0.9% 1000 ML 1,000 ML ONE (09:56)
[2021-01-04] MEDS ORDERED: ENOXAPARIN 150 MG/1 ML INJ SUB-Q SCH (10:00)
[2021-01-04] MEDS: CHOLECALCIFEROL (VIT D3) 1000 UNIT (25 mcg) TAB PO SCH (10:14)
[2021-01-04] MEDS: FAMOTIDINE 20 MG/2 ML INJ IV SCH ×2 (10:14→21:02)
[2021-01-04] MEDS ORDERED: PHENYLEPHRINE/NS 1,000 MCG/10 ML SYRINGE (OR USE) IV ONE (11:47)
[2021-01-04] MEDS: INSULIN LISPRO 100 UNIT/ML SUB-Q SCH ×6 (12:04→21:18)
--- NOTE | 2021-01-04 12:17 | Progress Note ---
Assessment and Plan 1. Acute kidney injury: NAVJOT in the setting of Covid-19 infection and sepsis. Suspect ATN. Low FeNa. Renal US negative. Monitor renal function. Creatinine level was better, now increased in the setting of profound shock. Avoid nephrotoxic agents. Meds dosage based on GFR. Monitor for [employer] needs. Patient is a not a candidate for conventional HD at this time due to profound hypotension. 2. FEN: Hyperkalemia, meds ordered, monitor. Anion-gap metabolic acidosis, Sod bicarb, monitor. Monitor lytes and volume status. 3. Acute hypoxic resp failure, POA: 2/ Covid-19 PNA. Test positive for Covid-19. Per pt he received J&J vaccine in Mar 2020. Currently intubated, on vent. Followed by Pulmonary. 4. Covid-19 PNA, POA: Test positive for Covid-19. Per pt he received J&J vaccine in Mar 2020. On Solumedrol and Lovenox. S/p Remdesivir. Monitor. 5. Sepsis with shock: / Covid-19 pneumonia. Followed by ID. 6. DM / Elevated bl glu: A1C 7.2. Monitor. Prognosis is very guarded. Subjective: Patient was seen and examined at the bedside. Events yesterday noted. Examination: General appearance: well-developed, appears stated age, obese, intubated, on vent HEENT: atraumatic Neck: trachea midline Respiratory: coarse breath sounds Heart: S1S2, regular, no murmur Abdomen: soft, obese, bowel sounds heard, NT Integumentary: no rash Neurologic: sedated Ext: trace LE edema Subjective Date of service: 01/04/21 Principal diagnosis: COVID-19 PNA Objective - Vital Signs Vital signs: Vital Signs - 12hr 01/04/21 01/04/21 01/04/21 01:38 01:46 02:00 Temperature Pulse Rate 147 H 143 H 129 H Pulse Rate [ Right Dorsalis Pedis] Respiratory 18 18 20 Rate Blood Pressure 91/40 87/51 O2 Sat by Pulse 69 L 69 L 71 L Oximetry 01/04/21 01/04/21 01/04/21 02:16 02:30 02:45 Temperature Pulse Rate 138 H 145 H 154 H Pulse Rate [ Right Dorsalis Pedis] Respiratory 22 22 22 Rate Blood Pressure 60/28 62/33 86/40 O2 Sat by Pulse 81 L 76 L 72 L Oximetry 01/04/21 01/04/21 01/04/21 02:59 03:00 03:15 Temperature Pulse Rate 169 H 158 H 151 H Pulse Rate [ Right Dorsalis Pedis] Respiratory 22 23 Rate Blood Pressure 92/62 92/62 69/48 O2 Sat by Pulse 78 L 68 L 75 L Oximetry 01/04/21 01/04/21 01/04/21 03:31 03:45 04:00 Temperature 98.6 F Pulse Rate 159 H 156 H Pulse Rate [ Right Dorsalis Pedis] Respiratory 24 23 24 Rate Blood Pressure 71/49 113/63 O2 Sat by Pulse 77 L 70 L 71 L Oximetry 01/04/21 01/04/21 01/04/21 04:01 04:15 04:30 Temperature Pulse Rate 149 H 151 H 105 H Pulse Rate [ Right Dorsalis Pedis] Respiratory 14 23 25 H Rate Blood Pressure 84/49 95/64 92/74 O2 Sat by Pulse 56 L 55 L 72 L Oximetry 01/04/21 01/04/21 01/04/21 04:45 05:00 05:15 Temperature Pulse Rate 103 H 115 H 120 H Pulse Rate [ Right Dorsalis Pedis] Respiratory 24 44 H 32 H Rate Blood Pressure 126/64 122/85 125/75 O2 Sat by Pulse 73 L 60 L 54 L Oximetry 01/04/21 01/04/21 01/04/21 05:31 05:45 06:01 Temperature Pulse Rate 121 H 111 H 101 H Pulse Rate [ Right Dorsalis Pedis] Respiratory 33 H 26 H 24 Rate Blood Pressure 142/70 155/55 105/63 O2 Sat by Pulse 56 L 57 L 57 L Oximetry 01/04/21 01/04/21 01/04/21 06:15 06:31 06:45 Temperature Pulse Rate 105 H 102 H 100 H Pulse Rate [ Right Dorsalis Pedis] Respiratory 22 22 23 Rate Blood Pressure 110/63 132/30 97/45 O2 Sat by Pulse 64 L 75 L 77 L Oximetry 01/04/21 01/04/21 01/04/21 07:01 07:15 07:28 Temperature Pulse Rate 103 H 108 H 106 H Pulse Rate [ Right Dorsalis Pedis] Respiratory 19 19 Rate Blood Pressure 108/42 79/63 105/57 O2 Sat by Pulse 78 L 78 L Oximetry 01/04/21 01/04/21 01/04/21 07:31 07:45 08:00 Temperature Pulse Rate 101 H 105 H 108 H Pulse Rate [ 103 H Right Dorsalis Pedis] Respiratory 20 18 16 Rate Blood Pressure 105/57 106/42 126/51 O2 Sat by Pulse 84 83 L Oximetry 01/04/21 01/04/21 01/04/21 08:04 08:15 08:31 Temperature 99.5 F Pulse Rate 107 H 108 H Pulse Rate [ Right Dorsalis Pedis] Respiratory 17 20 Rate Blood Pressure 126/51 92/41 O2 Sat by Pulse 87 Oximetry 01/04/21 01/04/21 01/04/21 08:45 08:57 09:00 Temperature Pulse Rate 108 H 108 H 107 H Pulse Rate [ Right Dorsalis Pedis] Respiratory 14 18 Rate Blood Pressure 92/51 92/51 104/60 O2 Sat by Pulse 88 88 88 Oximetry 01/04/21 01/04/21 01/04/21 09:15 09:31 09:45 Temperature Pulse Rate 113 H 106 H 109 H Pulse Rate [ Right Dorsalis Pedis] Respiratory 12 12 13 Rate Blood Pressure 104/52 105/51 93/29 O2 Sat by Pulse 88 89 90 Oximetry 01/04/21 01/04/21 01/04/21 10:00 10:15 10:31 Temperature Pulse Rate 104 H 105 H 108 H Pulse Rate [ Right Dorsalis Pedis] Respiratory 17 15 13 Rate Blood Pressure 94/50 78/37 101/35 O2 Sat by Pulse 89 92 91 Oximetry 01/04/21 01/04/21 01/04/21 10:45 11:01 11:15 Temperature Pulse Rate 106 H 105 H 108 H Pulse Rate [ Right Dorsalis Pedis] Respiratory 17 24 14 Rate Blood Pressure 87/55 88/39 119/32 O2 Sat by Pulse 91 90 86 Oximetry 01/04/21 01/04/21 01/04/21 11:31 11:45 12:01 Temperature 98.0 F Pulse Rate 109 H 107 H 105 H Pulse Rate [ Right Dorsalis Pedis] Respiratory 14 22 17 Rate Blood Pressure 82/31 107/54 90/67 O2 Sat by Pulse 90 90 Oximetry - Lab 01/03/21 23:10 01/04/21 12:25 Most recent lab results ABG pH 7.409 pH Units (7.350-7.450) 12/30/20 19:50 ABG pCO2 41.2 mm Hg 12/30/20 19:50 ABG pO2 46.0 mm Hg (80.0-90.0) L 12/30/20 19:50 ABG HCO3 25.5 mmol/L (20.0-26.0) 12/30/20 19:50 ABG O2 Saturation 80.2 % (95.0-99.0) L 12/30/20 19:50 Calcium 7.9 mg/dL (8.4-10.2) L 01/03/21 23:10 Urine Creatinine 134.1 mg/dL (0.1-20.0) H 12/23/20 00:40 Urine Sodium 26 mmol/L 12/23/20 00:40 Urine Total Protein 50 mg/dL (5-11.8) H 12/23/20 00:40 Medications & Allergies - Medications Allergies/Adverse Reactions: Allergies No Known Allergies Allergy (Verified 12/21/20 05:36) Home Medications: Home Medications Medication Instructions Recorded Confirmed Last Taken Type Losartan [Cozaar] 50 mg PO QDAY 12/20/20 12/20/20 12/20/20 07:00 History 50 Active Medications: Generic Name Dose Route Start Last Admin Trade Name Freq PRN Reason Stop Dose Admin Acetaminophen 650 mg 12/20/20 12:52 Acetaminophen 325 Mg Tab PO Q4H PRN Pain MILD(1-3)/Fever >100.5/KWON Ascorbic Acid 500 mg 12/20/20 22:00 01/04/21 10:14 Ascorbic Acid 500 Mg Tab PO 500 mg BID GUSTAVO Administration Cholecalciferol 1,000 unit 12/21/20 10:00 01/04/21 10:14 Cholecalciferol (Vit D3) 1000 Unit (25 Mcg) Tab PO 1,000 unit QDAY GUSTAVO Administration Enoxaparin Sodium 150 mg 01/04/21 10:00 01/04/21 10:13 Enoxaparin 150 Mg/1 Ml Inj SUB-Q 150 mg Q24H GUSTAVO Administration Famotidine 10 mg 01/04/21 10:00 01/04/21 10:14 Famotidine 20 Mg/2 Ml Inj IV 10 mg BID GUSTAVO Administration Fentanyl 50 mcg 01/03/21 23:11 01/03/21 23:30 Fentanyl 100 Mcg/2 Ml Inj IV 50 mcg Q10MIN PRN Administration ANALGESIA Hydralazine HCl 10 mg 12/22/20 17:56 12/22/20 19:01 Hydralazine 20 Mg/1 Ml Inj IV 10 mg Q6H PRN Administration Hypertension Hydromorphone HCl 0.5 mg 12/20/20 12:52 12/31/20 08:34 Hydromorphone 1 Mg/1 Ml Inj IV 0.5 mg Q23H PRN Administration Pain , Severe (7-10) Dexmedetomidine HCl 400 mcg/ 104 mls @ 8.351 mls/hr 01/03/21 18:00 01/04/21 02:38 Sodium Chloride IV Infused TITRATE GUSTAVO Titration Protocol 0.2 MCG/KG/HR NORepinephrine/NS 8 MG-250 ML 8 mg in 250 mls @ 3.75 mls/hr 01/03/21 23:45 01/04/21 07:00 Norepinephrine/Ns 8 Mg-250 Ml (Double Conc) IV 30 mcg/min TITRATE GUSTAVO 56.25 mls/hr Titration Protocol 2 MCG/MIN Propofol 1,000 mg in 100 mls @ 4.818 mls/hr 01/03/21 23:15 01/04/21 07:00 Diprivan 10 Mg/Ml IV 10 mcg/kg/min TITR GUSTAVO 9.636 mls/hr Titration Protocol 5 MCG/KG/MIN Fentanyl Citrate 2,000 mcg in 100 mls @ 8.03 mls/hr 01/03/21 23:15 01/04/21 02:45 Fentanyl Drip Premix IV 0 mcg/kg/hr TITR GUSTAVO 0 mls/hr Titration Protocol 1 MCG/KG/HR Vasopressin 20 unit/ Sodium 101 mls @ 9.09 mls/hr 01/04/21 03:00 01/04/21 03:29 Chloride IV 0.03 units/min TITR GUSTAVO 9.09 mls/hr Administration Protocol 0.03 UNITS/MIN Phenylephrine HCl 100 mg/ 100 mls @ 3 mls/hr 01/04/21 04:15 01/04/21 05:59 Sodium Chloride IV 50 mcg/min TITR GUSTAVO 3 mls/hr Administration Protocol 50 MCG/MIN Norepinephrine 4 mg in 250 mls @ 7.5 mls/hr 01/04/21 09:00 01/04/21 08:42 Levophed Drip 4 Mg/Ns 250 Ml IV 01/05/21 18:19 2 mcg/min ONCE ONE 7.5 mls/hr Administration Protocol 2 MCG/MIN Insulin Glargine 34 units 12/31/20 19:33 01/03/21 00:22 Insulin Glargine 100 Units/Ml SUB-Q 34 units QHS GUSTAVO Administration Insulin Human Lispro 0 unit 01/04/21 12:00 01/04/21 12:04 Insulin Lispro 100 Unit/Ml SUB-Q 3 unit Q6HR [facility] Administration Protocol Insulin Human Lispro 8 unit 01/04/21 14:00 Insulin Lispro 100 Unit/Ml SUB-Q TID GUSTAVO Lorazepam 1 mg 12/31/20 10:57 01/03/21 14:54 Lorazepam 2 Mg/Ml Vial IV 1 mg Q4H PRN Administration Agitation Methylprednisolone Sodium Succinate 80 mg 12/31/20 14:00 01/04/21 07:30 Methylprednisolone Sod Succinate 125 Mg/2 Ml Inj IV Not Given Q8HR [facility] Metoprolol Tartrate 5 mg 12/31/20 12:00 01/04/21 07:28 Metoprolol Tartrate 5 Mg/5 Ml Inj IV Not Given Q6HR [facility] Ondansetron HCl 4 mg 12/20/20 12:52 Ondansetron 4 Mg/2 Ml Inj IV Q8H PRN Nausea And Vomiting Oxycodone/Acetaminophen 1 tab 12/20/20 12:52 12/22/20 22:12 Oxycodone /Acetaminophen 5-325mg Tab PO 1 tab Q12H PRN Administration Pain, Moderate (4-6) Sodium Chloride 10 ml 12/20/20 22:00 01/04/21 00:45 Sodium Chloride 0.9% 10 Ml Flush Syringe IV 10 ml BID GUSTAVO Administration Sodium Chloride 10 ml 12/20/20 12:52 Sodium Chloride 0.9% 10 Ml Flush Syringe IV PRN PRN LINE FLUSH Zinc Sulfate 220 mg 12/20/20 22:00 01/04/21 10:13 Zinc Sulfate 220 Mg Cap PO 220 mg BID GUSTAVO Administration
[2021-01-04] MEDS ORDERED: SODIUM CHLORIDE 0.9% 1000 ML 1,000 ML IV ONE (13:00)
[2021-01-04 13:08] LABS: Albumin 2.4 g/dL (3.9-5); Calcium 7.4 mg/dL (8.4-10.2)
[2021-01-04] MEDS ORDERED: DEXTROSE 50% IN WATER (25GM) 50 ML SYRINGE IV SCH (13:30)
[2021-01-04] MEDS ORDERED: CALCIUM GLUCONATE 2,000 MG in SODIUM CHLORIDE 0.9% 100 ML IV SCH (13:30)
[2021-01-04] MEDS ORDERED: SODIUM POLYSTYRENE 15 GM/60 ML ORAL LIQD PO SCH (13:30)
[2021-01-04] MEDS ORDERED: INSULIN REGULAR, HUMAN 100 UNITS/1 ML IV SCH (13:30)
[2021-01-04] MEDS: SODIUM BICARB 8.4% 50 MEQ/50 ML SYRINGE IV SCH ×3 (14:02→16:25)
[2021-01-04] MEDS: SODIUM BICARBONATE 150 MEQ in DEXTROSE 5% IN WATER 1,000 ML IV SCH ×2 (14:03→21:08)
--- NOTE | 2021-01-04 14:28 | Progress Note ---
Assessment and Plan 50 y/o obese male, COVID positive admitted with acute hypoxic respiratory failure, renal failure and elevated D-Dimer 01/04/21: Will place dialysis catheter today in event that patient needs HD. No sedation. Attempt to medically treat K and acidemia for right now. Overall prognosis is very guarded to poor given COVID, mechanical vent and worsening renal function. 01/03/21: Worsening renal function and respiratory status. Will try Precedex to see if this will help patient keep bipap therapy on. 01/02/21: Bump in Cr today. did not give lasix yesterday. AWait renal recs for today. Continue PRN bipap, and combo therapy. Guarded prognosis. 01/01/21: Follow up renal recs. Cr stable but will hold on any further lasix therapy today until they make recs. Wean Bipap. Continue steroids. Anticoagulation. 12/31/20: Ordered lasix for now. If ok with renal will order another dose for later this evening. Patient has extensive bilateral DVT, very well could pass a PE but blood gas would not suggest. Also, ABG's are not helpful in this population as we know they are going to be severely hypoxic. Clinical situation determines intubation 99% of the time. Need to give patient the best chance possible to avoid intubation as the mortality rate with intubation and covid is extremely high. As long as sat can be maintained above 88% even with bipap, prefer to avoid intubation. Needs net negative fluid balance. Guarded prognosis. 12/30/20: Ordered another dose of lasix this am. Prone. Anticoagulation for clots. Guarded Prognosis 12/29/20: COntinue anticoagulation. Prone if possible. Awaiting COVID floor bed. Renal gave lasix this morning. 12/28/20: Reviewed IR note, appreciate their eval. Will start to wean steroids later this week. Continue anticoagulation. Prone if able. Ok with transfer back to floor as he has not required continuous bipap. Still would consider diuresis. 12/27/20: Need to remember that BNP was greater thann 6k on admit. Now has bilateral DVT's extensive. Spoke with IMS yesterday with plans to consult vascular for evaluation already on therapeutic lovenox. Prone if possible. continue steroids. Guarded prognosis. 12/26/20: Lasix has not been given lately. Will hold off today as well. Follow up renal recs. Prone patient if able. Continue steroids. Guarded prognosis. 12/23/20: Lasix 40 again today. Suggest daily therapy at least for several days to help with volume overload. This could help with oxygenation. Steroids and Remdesivir. Prone if able. BP control. Guarded prognosis. 1. Ordered stat BNP 2. Agree with Echo, follow up read as it has been done per the chart 3. Agree with steroids right now 4. Was given lasix yesterday and renal function improved. Agree with continued therapy, and follow up renal recs 5. Remdesivir ordered by ID 6. Prone as tolerated during the day and sleep prone at night 7. Guarded prognosis. Subjective Date of service: 01/04/21 Principal diagnosis: COVID-19 PNA Interval history: Coded and intubated overnight. Now on mulitple pressors. Renal function is worse. Unresponsive on vent. Objective Vital Signs - 12hr 01/04/21 01/04/21 01/04/21 02:30 02:45 02:59 Temperature Pulse Rate 145 H 154 H 169 H Pulse Rate [ Right Dorsalis Pedis] Respiratory 22 22 Rate Blood Pressure 62/33 86/40 92/62 O2 Sat by Pulse 76 L 72 L 78 L Oximetry 01/04/21 01/04/21 01/04/21 03:00 03:15 03:31 Temperature Pulse Rate 158 H 151 H 159 H Pulse Rate [ Right Dorsalis Pedis] Respiratory 22 23 24 Rate Blood Pressure 92/62 69/48 71/49 O2 Sat by Pulse 68 L 75 L 77 L Oximetry 01/04/21 01/04/21 01/04/21 03:45 04:00 04:01 Temperature 98.6 F Pulse Rate 156 H 149 H Pulse Rate [ Right Dorsalis Pedis] Respiratory 23 24 14 Rate Blood Pressure 113/63 84/49 O2 Sat by Pulse 70 L 71 L 56 L Oximetry 01/04/21 01/04/21 01/04/21 04:15 04:30 04:45 Temperature Pulse Rate 151 H 105 H 103 H Pulse Rate [ Right Dorsalis Pedis] Respiratory 23 25 H 24 Rate Blood Pressure 95/64 92/74 126/64 O2 Sat by Pulse 55 L 72 L 73 L Oximetry 01/04/21 01/04/21 01/04/21 05:00 05:15 05:31 Temperature Pulse Rate 115 H 120 H 121 H Pulse Rate [ Right Dorsalis Pedis] Respiratory 44 H 32 H 33 H Rate Blood Pressure 122/85 125/75 142/70 O2 Sat by Pulse 60 L 54 L 56 L Oximetry 01/04/21 01/04/21 01/04/21 05:45 06:01 06:15 Temperature Pulse Rate 111 H 101 H 105 H Pulse Rate [ Right Dorsalis Pedis] Respiratory 26 H 24 22 Rate Blood Pressure 155/55 105/63 110/63 O2 Sat by Pulse 57 L 57 L 64 L Oximetry 01/04/21 01/04/21 01/04/21 06:31 06:45 07:01 Temperature Pulse Rate 102 H 100 H 103 H Pulse Rate [ Right Dorsalis Pedis] Respiratory 22 23 19 Rate Blood Pressure 132/30 97/45 108/42 O2 Sat by Pulse 75 L 77 L 78 L Oximetry 01/04/21 01/04/21 01/04/21 07:15 07:28 07:31 Temperature Pulse Rate 108 H 106 H 101 H Pulse Rate [ Right Dorsalis Pedis] Respiratory 19 20 Rate Blood Pressure 79/63 105/57 105/57 O2 Sat by Pulse 78 L Oximetry 01/04/21 01/04/21 01/04/21 07:45 08:00 08:04 Temperature 99.5 F Pulse Rate 105 H 108 H Pulse Rate [ 103 H Right Dorsalis Pedis] Respiratory 18 16 Rate Blood Pressure 106/42 126/51 O2 Sat by Pulse 84 83 L Oximetry 01/04/21 01/04/21 01/04/21 08:15 08:31 08:45 Temperature Pulse Rate 107 H 108 H 108 H Pulse Rate [ Right Dorsalis Pedis] Respiratory 17 20 14 Rate Blood Pressure 126/51 92/41 92/51 O2 Sat by Pulse 87 88 Oximetry 01/04/21 01/04/21 01/04/21 08:57 09:00 09:15 Temperature Pulse Rate 108 H 107 H 113 H Pulse Rate [ Right Dorsalis Pedis] Respiratory 18 12 Rate Blood Pressure 92/51 104/60 104/52 O2 Sat by Pulse 88 88 88 Oximetry 01/04/21 01/04/21 01/04/21 09:31 09:45 10:00 Temperature Pulse Rate 106 H 109 H 104 H Pulse Rate [ Right Dorsalis Pedis] Respiratory 12 13 17 Rate Blood Pressure 105/51 93/29 94/50 O2 Sat by Pulse 89 90 89 Oximetry 01/04/21 01/04/21 01/04/21 10:15 10:31 10:45 Temperature Pulse Rate 105 H 108 H 106 H Pulse Rate [ Right Dorsalis Pedis] Respiratory 15 13 17 Rate Blood Pressure 78/37 101/35 87/55 O2 Sat by Pulse 92 91 91 Oximetry 01/04/21 01/04/21 01/04/21 11:01 11:15 11:31 Temperature Pulse Rate 105 H 108 H 109 H Pulse Rate [ Right Dorsalis Pedis] Respiratory 24 14 14 Rate Blood Pressure 88/39 119/32 82/31 O2 Sat by Pulse 90 86 90 Oximetry 01/04/21 01/04/21 01/04/21 11:45 12:00 12:01 Temperature 98.0 F Pulse Rate 107 H 110 H 105 H Pulse Rate [ 110 H Right Dorsalis Pedis] Respiratory 22 13 17 Rate Blood Pressure 107/54 90/67 O2 Sat by Pulse 90 90 Oximetry 01/04/21 01/04/21 12:49 13:14 Temperature Pulse Rate 111 H 109 H Pulse Rate [ Right Dorsalis Pedis] Respiratory Rate Blood Pressure 78/54 O2 Sat by Pulse 87 Oximetry CBC and BMP: 01/03/21 23:10 01/04/21 12:25 ABG, PT/INR, D-dimer: ABG ABG pH 7.409 pH Units (7.350-7.450) 12/30/20 19:50 POC ABG pCO2 29.6 mmHg (32.0-48.0) L 12/23/20 13:06 ABG pCO2 41.2 mm Hg 12/30/20 19:50 POC ABG pO2 57.8 mmHg (83-108) L 12/23/20 13:06 ABG pO2 46.0 mm Hg (80.0-90.0) L 12/30/20 19:50 POC ABG HCO3 19.9 12/23/20 13:06 ABG O2 Saturation 80.2 % (95.0-99.0) L 12/30/20 19:50 PT/INR, D-dimer PT 21.6 Sec. (12.2-14.9) H 01/03/21 23:10 INR 1.70 (0.87-1.13) H 01/03/21 23:10 D-Dimer 803.94 ng/mlDDU (0-234) H 01/02/21 10:27 Abnormal lab findings: Abnormal Labs 12/20/20 12/20/20 12/20/20 11:31 11:31 11:31 WBC 16.5 H RBC 5.27 H Hgb Hct Plt Count Seg Neuts % (Manual) 90.0 H Lymphocytes % (Manual) 5.0 L Nucleated RBC % Seg Neutrophils # Man 14.9 H Lymphocytes # (Manual) 0.8 L PT INR APTT D-Dimer > 93150 H POC ABG pCO2 POC ABG pO2 ABG pO2 ABG O2 Saturation ABG Oxyhemoglobin ABG Potassium ABG Glucose Oxyhemoglobin Sodium 130 L Potassium Chloride 94.5 L Carbon Dioxide BUN 64 H Creatinine 2.6 H Glucose 154 H POC Glucose Hemoglobin A1c Calcium Ferritin Total Bilirubin AST ALT Lactate Dehydrogenase Troponin T C-Reactive Protein NT-Pro-B Natriuret Pep Total Protein Albumin 3.5 L Triglycerides HDL Cholesterol PTH Intact Arterial Blood Glucose Urine WBC (Auto) Urine Creatinine Urine Total Protein Coronavirus (PCR) 12/20/20 12/21/20 12/21/20 11:31 06:10 06:10 WBC 20.1 H RBC 5.55 H Hgb 15.4 H Hct 47.3 H Plt Count Seg Neuts % (Manual) 89.0 H Lymphocytes % (Manual) Nucleated RBC % 1.0 H Seg Neutrophils # Man 17.9 H Lymphocytes # (Manual) 0.0 L PT INR APTT D-Dimer POC ABG pCO2 POC ABG pO2 ABG pO2 ABG O2 Saturation ABG Oxyhemoglobin ABG Potassium ABG Glucose Oxyhemoglobin Sodium 136 L Potassium Chloride Carbon Dioxide BUN 57 H Creatinine 1.8 H Glucose 193 H POC Glucose Hemoglobin A1c Calcium Ferritin Total Bilirubin AST ALT Lactate Dehydrogenase 10 L Troponin T 0.106 H* C-Reactive Protein 5.20 H NT-Pro-B Natriuret Pep Total Protein Albumin Triglycerides 226 H HDL Cholesterol 31 L PTH Intact Arterial Blood Glucose Urine WBC (Auto) Urine Creatinine Urine Total Protein Coronavirus (PCR) 12/21/20 12/21/20 12/21/20 13:29 14:32 Unknown WBC RBC Hgb Hct Plt Count Seg Neuts % (Manual) Lymphocytes % (Manual) Nucleated RBC % Seg Neutrophils # Man Lymphocytes # (Manual) PT INR APTT D-Dimer POC ABG pCO2 POC ABG pO2 ABG pO2 ABG O2 Saturation ABG Oxyhemoglobin ABG Potassium ABG Glucose Oxyhemoglobin Sodium 134 L Potassium Chloride Carbon Dioxide BUN 57 H Creatinine 1.8 H Glucose 340 H POC Glucose Hemoglobin A1c Calcium 8.3 L Ferritin Total Bilirubin AST ALT Lactate Dehydrogenase Troponin T C-Reactive Protein NT-Pro-B Natriuret Pep 6191 H Total Protein Albumin 3.3 L Triglycerides HDL Cholesterol PTH Intact Arterial Blood Glucose Urine WBC (Auto) Urine Creatinine Urine Total Protein Coronavirus (PCR) Positive A 12/22/20 12/22/20 12/22/20 05:56 05:56 17:21 WBC 26.6 H RBC 5.22 H Hgb Hct Plt Count Seg Neuts % (Manual) Lymphocytes % (Manual) Nucleated RBC % Seg Neutrophils # Man Lymphocytes # (Manual) PT INR APTT D-Dimer POC ABG pCO2 POC ABG pO2 ABG pO2 ABG O2 Saturation ABG Oxyhemoglobin ABG Potassium ABG Glucose Oxyhemoglobin Sodium Potassium Chloride Carbon Dioxide BUN 64 H Creatinine 2.0 H Glucose 227 H POC Glucose 188 H Hemoglobin A1c Calcium Ferritin Total Bilirubin AST ALT Lactate Dehydrogenase Troponin T C-Reactive Protein NT-Pro-B Natriuret Pep Total Protein Albumin 3.4 L Triglycerides HDL Cholesterol PTH Intact Arterial Blood Glucose Urine WBC (Auto) Urine Creatinine Urine Total Protein Coronavirus (PCR) 12/23/20 12/23/20 12/23/20 00:40 00:40 05:15 WBC RBC Hgb Hct Plt Count Seg Neuts % (Manual) Lymphocytes % (Manual) Nucleated RBC % Seg Neutrophils # Man Lymphocytes # (Manual) PT INR APTT D-Dimer POC ABG pCO2 POC ABG pO2 ABG pO2 ABG O2 Saturation ABG Oxyhemoglobin ABG Potassium ABG Glucose Oxyhemoglobin Sodium Potassium 5.6 H Chloride Carbon Dioxide BUN 71 H Creatinine 1.8 H Glucose 225 H POC Glucose Hemoglobin A1c Calcium Ferritin Total Bilirubin AST 46 H ALT 83 H Lactate Dehydrogenase Troponin T C-Reactive Protein NT-Pro-B Natriuret Pep Total Protein Albumin 3.6 L Triglycerides HDL Cholesterol PTH Intact Arterial Blood Glucose Urine WBC (Auto) 8.0 H Urine Creatinine 134.1 H Urine Total Protein 50 H Coronavirus (PCR) 12/23/20 12/23/20 12/23/20 05:15 05:15 11:47 WBC RBC Hgb Hct Plt Count Seg Neuts % (Manual) Lymphocytes % (Manual) Nucleated RBC % Seg Neutrophils # Man Lymphocytes # (Manual) PT INR APTT D-Dimer POC ABG pCO2 POC ABG pO2 ABG pO2 ABG O2 Saturation ABG Oxyhemoglobin ABG Potassium ABG Glucose Oxyhemoglobin Sodium Potassium Chloride Carbon Dioxide BUN Creatinine Glucose POC Glucose 257 H Hemoglobin A1c 7.2 H Calcium Ferritin Total Bilirubin AST ALT Lactate Dehydrogenase Troponin T C-Reactive Protein NT-Pro-B Natriuret Pep Total Protein Albumin Triglycerides HDL Cholesterol PTH Intact 109.4 H Arterial Blood Glucose Urine WBC (Auto) Urine Creatinine Urine Total Protein Coronavirus (PCR) 12/23/20 12/23/20 12/24/20 13:06 16:41 00:02 WBC RBC Hgb Hct Plt Count Seg Neuts % (Manual) Lymphocytes % (Manual) Nucleated RBC % Seg Neutrophils # Man Lymphocytes # (Manual) PT INR APTT D-Dimer POC ABG pCO2 29.6 L POC ABG pO2 57.8 L ABG pO2 ABG O2 Saturation ABG Oxyhemoglobin 88.9 L ABG Potassium 4.7 H ABG Glucose 286 H Oxyhemoglobin Sodium Potassium Chloride Carbon Dioxide BUN Creatinine Glucose POC Glucose 199 H 213 H Hemoglobin A1c Calcium Ferritin Total Bilirubin AST ALT Lactate Dehydrogenase Troponin T C-Reactive Protein NT-Pro-B Natriuret Pep Total Protein Albumin Triglycerides HDL Cholesterol PTH Intact Arterial Blood Glucose 286 H Urine WBC (Auto) Urine Creatinine Urine Total Protein Coronavirus (PCR) 12/24/20 12/24/20 12/24/20 04:56 05:17 12:03 WBC RBC Hgb Hct Plt Count Seg Neuts % (Manual) Lymphocytes % (Manual) Nucleated RBC % Seg Neutrophils # Man Lymphocytes # (Manual) PT INR APTT D-Dimer POC ABG pCO2 POC ABG pO2 ABG pO2 ABG O2 Saturation ABG Oxyhemoglobin ABG Potassium ABG Glucose Oxyhemoglobin Sodium Potassium 5.4 H Chloride Carbon Dioxide 18 L D BUN 74 H Creatinine 1.6 H Glucose 228 H POC Glucose 204 H 218 H Hemoglobin A1c Calcium Ferritin Total Bilirubin AST 44 H ALT 105 H Lactate Dehydrogenase Troponin T C-Reactive Protein NT-Pro-B Natriuret Pep Total Protein Albumin 3.5 L Triglycerides HDL Cholesterol PTH Intact Arterial Blood Glucose Urine WBC (Auto) Urine Creatinine Urine Total Protein Coronavirus (PCR) 12/24/20 12/24/20 12/25/20 17:44 22:25 04:44 WBC RBC Hgb Hct Plt Count Seg Neuts % (Manual) Lymphocytes % (Manual) Nucleated RBC % Seg Neutrophils # Man Lymphocytes # (Manual) PT INR APTT D-Dimer POC ABG pCO2 POC ABG pO2 ABG pO2 ABG O2 Saturation ABG Oxyhemoglobin ABG Potassium ABG Glucose Oxyhemoglobin Sodium Potassium 5.5 H Chloride Carbon Dioxide BUN 58 H Creatinine Glucose 235 H POC Glucose 266 H 224 H Hemoglobin A1c Calcium Ferritin Total Bilirubin AST ALT Lactate Dehydrogenase Troponin T C-Reactive Protein NT-Pro-B Natriuret Pep Total Protein Albumin Triglycerides HDL Cholesterol PTH Intact Arterial Blood Glucose Urine WBC (Auto) Urine Creatinine Urine Total Protein Coronavirus (PCR) 12/25/20 12/25/20 12/25/20 06:11 11:14 11:14 WBC RBC Hgb Hct Plt Count Seg Neuts % (Manual) Lymphocytes % (Manual) Nucleated RBC % Seg Neutrophils # Man Lymphocytes # (Manual) PT INR APTT D-Dimer 6017.45 H POC ABG pCO2 POC ABG pO2 ABG pO2 ABG O2 Saturation ABG Oxyhemoglobin ABG Potassium ABG Glucose Oxyhemoglobin Sodium Potassium Chloride Carbon Dioxide BUN Creatinine Glucose POC Glucose 191 H Hemoglobin A1c Calcium Ferritin 1385.0 H Total Bilirubin AST ALT Lactate Dehydrogenase Troponin T C-Reactive Protein NT-Pro-B Natriuret Pep Total Protein Albumin Triglycerides HDL Cholesterol PTH Intact Arterial Blood Glucose Urine WBC (Auto) Urine Creatinine Urine Total Protein Coronavirus (PCR) 12/25/20 12/25/20 12/25/20 11:38 17:00 23:31 WBC RBC Hgb Hct Plt Count Seg Neuts % (Manual) Lymphocytes % (Manual) Nucleated RBC % Seg Neutrophils # Man Lymphocytes # (Manual) PT INR APTT D-Dimer POC ABG pCO2 POC ABG pO2 ABG pO2 ABG O2 Saturation ABG Oxyhemoglobin ABG Potassium ABG Glucose Oxyhemoglobin Sodium Potassium Chloride Carbon Dioxide BUN Creatinine Glucose POC Glucose 213 H 327 H 307 H Hemoglobin A1c Calcium Ferritin Total Bilirubin AST ALT Lactate Dehydrogenase Troponin T C-Reactive Protein NT-Pro-B Natriuret Pep Total Protein Albumin Triglycerides HDL Cholesterol PTH Intact Arterial Blood Glucose Urine WBC (Auto) Urine Creatinine Urine Total Protein Coronavirus (PCR) 12/26/20 12/26/20 12/26/20 04:23 05:32 11:50 WBC RBC Hgb Hct Plt Count Seg Neuts % (Manual) Lymphocytes % (Manual) Nucleated RBC % Seg Neutrophils # Man Lymphocytes # (Manual) PT INR APTT D-Dimer POC ABG pCO2 POC ABG pO2 ABG pO2 ABG O2 Saturation ABG Oxyhemoglobin ABG Potassium ABG Glucose Oxyhemoglobin Sodium 146 H Potassium Chloride Carbon Dioxide BUN 49 H Creatinine Glucose 257 H POC Glucose 265 H 231 H Hemoglobin A1c Calcium Ferritin Total Bilirubin AST ALT Lactate Dehydrogenase Troponin T C-Reactive Protein NT-Pro-B Natriuret Pep Total Protein Albumin Triglycerides HDL Cholesterol PTH Intact Arterial Blood Glucose Urine WBC (Auto) Urine Creatinine Urine Total Protein Coronavirus (PCR) 12/26/20 12/26/20 12/27/20 17:17 23:37 04:46 WBC RBC Hgb Hct Plt Count Seg Neuts % (Manual) Lymphocytes % (Manual) Nucleated RBC % Seg Neutrophils # Man Lymphocytes # (Manual) PT INR APTT D-Dimer POC ABG pCO2 POC ABG pO2 ABG pO2 ABG O2 Saturation ABG Oxyhemoglobin ABG Potassium ABG Glucose Oxyhemoglobin Sodium Potassium Chloride Carbon Dioxide BUN 53 H Creatinine Glucose 242 H POC Glucose 308 H 256 H Hemoglobin A1c Calcium Ferritin Total Bilirubin AST ALT 80 H Lactate Dehydrogenase Troponin T C-Reactive Protein NT-Pro-B Natriuret Pep Total Protein Albumin 3.0 L Triglycerides HDL Cholesterol PTH Intact Arterial Blood Glucose Urine WBC (Auto) Urine Creatinine Urine Total Protein Coronavirus (PCR) 12/27/20 12/27/20 12/27/20 04:46 05:58 11:47 WBC 21.2 H RBC 5.17 H Hgb Hct Plt Count Seg Neuts % (Manual) Lymphocytes % (Manual) Nucleated RBC % Seg Neutrophils # Man Lymphocytes # (Manual) PT INR APTT D-Dimer POC ABG pCO2 POC ABG pO2 ABG pO2 ABG O2 Saturation ABG Oxyhemoglobin ABG Potassium ABG Glucose Oxyhemoglobin Sodium Potassium Chloride Carbon Dioxide BUN Creatinine Glucose POC Glucose 178 H 184 H Hemoglobin A1c Calcium Ferritin Total Bilirubin AST ALT Lactate Dehydrogenase Troponin T C-Reactive Protein NT-Pro-B Natriuret Pep Total Protein Albumin Triglycerides HDL Cholesterol PTH Intact Arterial Blood Glucose Urine WBC (Auto) Urine Creatinine Urine Total Protein Coronavirus (PCR) 12/27/20 12/27/20 12/27/20 17:14 21:34 23:55 WBC RBC Hgb Hct Plt Count Seg Neuts % (Manual) Lymphocytes % (Manual) Nucleated RBC % Seg Neutrophils # Man Lymphocytes # (Manual) PT INR APTT D-Dimer POC ABG pCO2 POC ABG pO2 ABG pO2 ABG O2 Saturation ABG Oxyhemoglobin ABG Potassium ABG Glucose Oxyhemoglobin Sodium Potassium Chloride Carbon Dioxide BUN Creatinine Glucose POC Glucose 243 H 318 H 281 H Hemoglobin A1c Calcium Ferritin Total Bilirubin AST ALT Lactate Dehydrogenase Troponin T C-Reactive Protein NT-Pro-B Natriuret Pep Total Protein Albumin Triglycerides HDL Cholesterol PTH Intact Arterial Blood Glucose Urine WBC (Auto) Urine Creatinine Urine Total Protein Coronavirus (PCR) 12/28/20 12/28/20 12/28/20 04:29 05:52 07:39 WBC RBC Hgb Hct Plt Count Seg Neuts % (Manual) Lymphocytes % (Manual) Nucleated RBC % Seg Neutrophils # Man Lymphocytes # (Manual) PT INR APTT D-Dimer POC ABG pCO2 POC ABG pO2 ABG pO2 ABG O2 Saturation ABG Oxyhemoglobin ABG Potassium ABG Glucose Oxyhemoglobin Sodium 135 L D Potassium 5.3 H D Chloride Carbon Dioxide 18 L D BUN 52 H Creatinine Glucose 280 H POC Glucose 267 H 261 H Hemoglobin A1c Calcium 7.9 L Ferritin Total Bilirubin AST ALT Lactate Dehydrogenase Troponin T C-Reactive Protein NT-Pro-B Natriuret Pep Total Protein Albumin Triglycerides HDL Cholesterol PTH Intact Arterial Blood Glucose Urine WBC (Auto) Urine Creatinine Urine Total Protein Coronavirus (PCR) 12/28/20 12/28/20 12/28/20 11:56 15:00 15:00 WBC 19.0 H RBC 5.46 H Hgb 15.5 H Hct 47.9 H Plt Count Seg Neuts % (Manual) Lymphocytes % (Manual) Nucleated RBC % Seg Neutrophils # Man Lymphocytes # (Manual) PT 16.0 H INR 1.23 H APTT 38.4 H D-Dimer POC ABG pCO2 POC ABG pO2 ABG pO2 ABG O2 Saturation ABG Oxyhemoglobin ABG Potassium ABG Glucose Oxyhemoglobin Sodium Potassium Chloride Carbon Dioxide BUN Creatinine Glucose POC Glucose 271 H Hemoglobin A1c Calcium Ferritin Total Bilirubin AST ALT Lactate Dehydrogenase Troponin T C-Reactive Protein NT-Pro-B Natriuret Pep Total Protein Albumin Triglycerides HDL Cholesterol PTH Intact Arterial Blood Glucose Urine WBC (Auto) Urine Creatinine Urine Total Protein Coronavirus (PCR) 12/28/20 12/28/20 12/29/20 16:32 22:05 04:39 WBC RBC Hgb Hct Plt Count Seg Neuts % (Manual) Lymphocytes % (Manual) Nucleated RBC % Seg Neutrophils # Man Lymphocytes # (Manual) PT INR APTT D-Dimer POC ABG pCO2 POC ABG pO2 ABG pO2 ABG O2 Saturation ABG Oxyhemoglobin ABG Potassium ABG Glucose Oxyhemoglobin Sodium Potassium 5.5 H Chloride Carbon Dioxide BUN 51 H Creatinine Glucose 257 H POC Glucose 246 H 324 H Hemoglobin A1c Calcium 8.1 L Ferritin Total Bilirubin AST ALT Lactate Dehydrogenase Troponin T C-Reactive Protein NT-Pro-B Natriuret Pep Total Protein Albumin Triglycerides HDL Cholesterol PTH Intact Arterial Blood Glucose Urine WBC (Auto) Urine Creatinine Urine Total Protein Coronavirus (PCR) 12/29/20 12/29/20 12/29/20 07:16 11:41 15:43 WBC RBC Hgb Hct Plt Count Seg Neuts % (Manual) Lymphocytes % (Manual) Nucleated RBC % Seg Neutrophils # Man Lymphocytes # (Manual) PT INR APTT D-Dimer POC ABG pCO2 POC ABG pO2 ABG pO2 ABG O2 Saturation ABG Oxyhemoglobin ABG Potassium ABG Glucose Oxyhemoglobin Sodium Potassium Chloride Carbon Dioxide BUN Creatinine Glucose POC Glucose 243 H 250 H 268 H Hemoglobin A1c Calcium Ferritin Total Bilirubin AST ALT Lactate Dehydrogenase Troponin T C-Reactive Protein NT-Pro-B Natriuret Pep Total Protein Albumin Triglycerides HDL Cholesterol PTH Intact Arterial Blood Glucose Urine WBC (Auto) Urine Creatinine Urine Total Protein Coronavirus (PCR) 12/29/20 12/30/20 12/30/20 21:47 07:26 08:27 WBC 25.1 H RBC 5.22 H Hgb Hct Plt Count Seg Neuts % (Manual) Lymphocytes % (Manual) Nucleated RBC % Seg Neutrophils # Man Lymphocytes # (Manual) PT INR APTT D-Dimer POC ABG pCO2 POC ABG pO2 ABG pO2 ABG O2 Saturation ABG Oxyhemoglobin ABG Potassium ABG Glucose Oxyhemoglobin Sodium Potassium Chloride Carbon Dioxide BUN Creatinine Glucose POC Glucose 250 H 193 H Hemoglobin A1c Calcium Ferritin Total Bilirubin AST ALT Lactate Dehydrogenase Troponin T C-Reactive Protein NT-Pro-B Natriuret Pep Total Protein Albumin Triglycerides HDL Cholesterol PTH Intact Arterial Blood Glucose Urine WBC (Auto) Urine Creatinine Urine Total Protein Coronavirus (PCR) 12/30/20 12/30/20 12/30/20 08:27 11:29 19:50 WBC RBC Hgb Hct Plt Count Seg Neuts % (Manual) Lymphocytes % (Manual) Nucleated RBC % Seg Neutrophils # Man Lymphocytes # (Manual) PT INR APTT D-Dimer POC ABG pCO2 POC ABG pO2 ABG pO2 46.0 L ABG O2 Saturation 80.2 L ABG Oxyhemoglobin ABG Potassium ABG Glucose Oxyhemoglobin 78.0 L Sodium Potassium Chloride Carbon Dioxide BUN 60 H Creatinine Glucose 240 H POC Glucose 270 H Hemoglobin A1c Calcium Ferritin Total Bilirubin AST ALT Lactate Dehydrogenase Troponin T C-Reactive Protein NT-Pro-B Natriuret Pep Total Protein Albumin Triglycerides HDL Cholesterol PTH Intact Arterial Blood Glucose Urine WBC (Auto) Urine Creatinine Urine Total Protein Coronavirus (PCR) 12/30/20 12/31/20 12/31/20 21:44 06:03 07:21 WBC RBC Hgb Hct Plt Count Seg Neuts % (Manual) Lymphocytes % (Manual) Nucleated RBC % Seg Neutrophils # Man Lymphocytes # (Manual) PT INR APTT D-Dimer POC ABG pCO2 POC ABG pO2 ABG pO2 ABG O2 Saturation ABG Oxyhemoglobin ABG Potassium ABG Glucose Oxyhemoglobin Sodium Potassium Chloride Carbon Dioxide BUN 65 H Creatinine Glucose 246 H POC Glucose 273 H 227 H Hemoglobin A1c Calcium Ferritin Total Bilirubin AST ALT Lactate Dehydrogenase Troponin T C-Reactive Protein NT-Pro-B Natriuret Pep Total Protein Albumin Triglycerides HDL Cholesterol PTH Intact Arterial Blood Glucose Urine WBC (Auto) Urine Creatinine Urine Total Protein Coronavirus (PCR) 12/31/20 12/31/20 12/31/20 11:28 17:20 21:12 WBC RBC Hgb Hct Plt Count Seg Neuts % (Manual) Lymphocytes % (Manual) Nucleated RBC % Seg Neutrophils # Man Lymphocytes # (Manual) PT INR APTT D-Dimer POC ABG pCO2 POC ABG pO2 ABG pO2 ABG O2 Saturation ABG Oxyhemoglobin ABG Potassium ABG Glucose Oxyhemoglobin Sodium Potassium Chloride Carbon Dioxide BUN Creatinine Glucose POC Glucose 232 H 256 H 239 H Hemoglobin A1c Calcium Ferritin Total Bilirubin AST ALT Lactate Dehydrogenase Troponin T C-Reactive Protein NT-Pro-B Natriuret Pep Total Protein Albumin Triglycerides HDL Cholesterol PTH Intact Arterial Blood Glucose Urine WBC (Auto) Urine Creatinine Urine Total Protein Coronavirus (PCR) 01/01/21 01/01/21 01/01/21 06:02 06:02 10:41 WBC 21.3 H RBC Hgb Hct Plt Count Seg Neuts % (Manual) Lymphocytes % (Manual) Nucleated RBC % Seg Neutrophils # Man Lymphocytes # (Manual) PT INR APTT D-Dimer POC ABG pCO2 POC ABG pO2 ABG pO2 ABG O2 Saturation ABG Oxyhemoglobin ABG Potassium ABG Glucose Oxyhemoglobin Sodium Potassium Chloride Carbon Dioxide BUN 67 H Creatinine Glucose 256 H POC Glucose 225 H Hemoglobin A1c Calcium Ferritin Total Bilirubin AST ALT Lactate Dehydrogenase Troponin T C-Reactive Protein NT-Pro-B Natriuret Pep Total Protein Albumin Triglycerides HDL Cholesterol PTH Intact Arterial Blood Glucose Urine WBC (Auto) Urine Creatinine Urine Total Protein Coronavirus (PCR) 01/01/21 01/01/21 01/01/21 14:33 19:02 21:48 WBC RBC Hgb Hct Plt Count Seg Neuts % (Manual) Lymphocytes % (Manual) Nucleated RBC % Seg Neutrophils # Man Lymphocytes # (Manual) PT INR APTT D-Dimer POC ABG pCO2 POC ABG pO2 ABG pO2 ABG O2 Saturation ABG Oxyhemoglobin ABG Potassium ABG Glucose Oxyhemoglobin Sodium Potassium Chloride Carbon Dioxide BUN Creatinine Glucose POC Glucose 230 H 221 H 270 H Hemoglobin A1c Calcium Ferritin Total Bilirubin AST ALT Lactate Dehydrogenase Troponin T C-Reactive Protein NT-Pro-B Natriuret Pep Total Protein Albumin Triglycerides HDL Cholesterol PTH Intact Arterial Blood Glucose Urine WBC (Auto) Urine Creatinine Urine Total Protein Coronavirus (PCR) 01/02/21 01/02/21 01/02/21 06:36 07:30 10:27 WBC RBC Hgb Hct Plt Count Seg Neuts % (Manual) Lymphocytes % (Manual) Nucleated RBC % Seg Neutrophils # Man Lymphocytes # (Manual) PT INR APTT D-Dimer 803.94 H POC ABG pCO2 POC ABG pO2 ABG pO2 ABG O2 Saturation ABG Oxyhemoglobin ABG Potassium ABG Glucose Oxyhemoglobin Sodium Potassium Chloride Carbon Dioxide BUN 69 H Creatinine 1.4 H Glucose 284 H POC Glucose 227 H Hemoglobin A1c Calcium Ferritin Total Bilirubin AST ALT Lactate Dehydrogenase Troponin T C-Reactive Protein NT-Pro-B Natriuret Pep Total Protein Albumin Triglycerides HDL Cholesterol PTH Intact Arterial Blood Glucose Urine WBC (Auto) Urine Creatinine Urine Total Protein Coronavirus (PCR) 01/02/21 01/02/21 01/02/21 10:27 10:27 11:29 WBC RBC Hgb Hct Plt Count Seg Neuts % (Manual) Lymphocytes % (Manual) Nucleated RBC % Seg Neutrophils # Man Lymphocytes # (Manual) PT INR APTT D-Dimer POC ABG pCO2 POC ABG pO2 ABG pO2 ABG O2 Saturation ABG Oxyhemoglobin ABG Potassium ABG Glucose Oxyhemoglobin Sodium Potassium Chloride Carbon Dioxide BUN Creatinine Glucose POC Glucose 270 H Hemoglobin A1c Calcium Ferritin 1938.0 H Total Bilirubin AST ALT Lactate Dehydrogenase 683 H Troponin T C-Reactive Protein NT-Pro-B Natriuret Pep Total Protein Albumin Triglycerides HDL Cholesterol PTH Intact Arterial Blood Glucose Urine WBC (Auto) Urine Creatinine Urine Total Protein Coronavirus (PCR) 01/02/21 01/02/21 01/03/21 17:06 21:23 04:40 WBC 23.3 H RBC Hgb 11.7 L Hct Plt Count 117 L Seg Neuts % (Manual) 99.0 H Lymphocytes % (Manual) Nucleated RBC % Seg Neutrophils # Man 23.1 H Lymphocytes # (Manual) 0.0 L PT INR APTT D-Dimer POC ABG pCO2 POC ABG pO2 ABG pO2 ABG O2 Saturation ABG Oxyhemoglobin ABG Potassium ABG Glucose Oxyhemoglobin Sodium Potassium Chloride Carbon Dioxide BUN Creatinine Glucose POC Glucose 272 H 225 H Hemoglobin A1c Calcium Ferritin Total Bilirubin AST ALT Lactate Dehydrogenase Troponin T C-Reactive Protein NT-Pro-B Natriuret Pep Total Protein Albumin Triglycerides HDL Cholesterol PTH Intact Arterial Blood Glucose Urine WBC (Auto) Urine Creatinine Urine Total Protein Coronavirus (PCR) 01/03/21 01/03/21 01/03/21 04:40 07:19 12:16 WBC RBC Hgb Hct Plt Count Seg Neuts % (Manual) Lymphocytes % (Manual) Nucleated RBC % Seg Neutrophils # Man Lymphocytes # (Manual) PT INR APTT D-Dimer POC ABG pCO2 POC ABG pO2 ABG pO2 ABG O2 Saturation ABG Oxyhemoglobin ABG Potassium ABG Glucose Oxyhemoglobin Sodium 135 L D Potassium Chloride Carbon Dioxide BUN 68 H Creatinine Glucose 243 H POC Glucose 225 H 299 H Hemoglobin A1c Calcium 7.9 L Ferritin Total Bilirubin AST ALT Lactate Dehydrogenase Troponin T C-Reactive Protein NT-Pro-B Natriuret Pep Total Protein Albumin Triglycerides HDL Cholesterol PTH Intact Arterial Blood Glucose Urine WBC (Auto) Urine Creatinine Urine Total Protein Coronavirus (PCR) 01/03/21 01/03/21 01/03/21 15:51 22:12 22:38 WBC RBC Hgb Hct Plt Count Seg Neuts % (Manual) Lymphocytes % (Manual) Nucleated RBC % Seg Neutrophils # Man Lymphocytes # (Manual) PT INR APTT D-Dimer POC ABG pCO2 POC ABG pO2 ABG pO2 ABG O2 Saturation ABG Oxyhemoglobin ABG Potassium ABG Glucose Oxyhemoglobin Sodium Potassium Chloride Carbon Dioxide BUN Creatinine Glucose POC Glucose 290 H 242 H 217 H Hemoglobin A1c Calcium Ferritin Total Bilirubin AST ALT Lactate Dehydrogenase Troponin T C-Reactive Protein NT-Pro-B Natriuret Pep Total Protein Albumin Triglycerides HDL Cholesterol PTH Intact Arterial Blood Glucose Urine WBC (Auto) Urine Creatinine Urine Total Protein Coronavirus (PCR) 01/03/21 01/03/21 01/03/21 23:10 23:10 23:10 WBC 28.9 H RBC 3.62 L Hgb 10.3 L Hct 32.2 L Plt Count 116 L Seg Neuts % (Manual) 97.0 H Lymphocytes % (Manual) 3.0 L Nucleated RBC % Seg Neutrophils # Man 28.0 H Lymphocytes # (Manual) 0.9 L PT 21.6 H INR 1.70 H APTT 38.8 H D-Dimer POC ABG pCO2 POC ABG pO2 ABG pO2 ABG O2 Saturation ABG Oxyhemoglobin ABG Potassium ABG Glucose Oxyhemoglobin Sodium Potassium 6.2 H* D Chloride Carbon Dioxide 15 L D BUN 89 H Creatinine 2.3 H D Glucose 264 H POC Glucose Hemoglobin A1c Calcium 7.9 L Ferritin Total Bilirubin AST ALT Lactate Dehydrogenase Troponin T C-Reactive Protein NT-Pro-B Natriuret Pep Total Protein Albumin Triglycerides HDL Cholesterol PTH Intact Arterial Blood Glucose Urine WBC (Auto) Urine Creatinine Urine Total Protein Coronavirus (PCR) 01/03/21 01/04/21 01/04/21 23:10 05:22 07:08 WBC RBC Hgb Hct Plt Count Seg Neuts % (Manual) Lymphocytes % (Manual) Nucleated RBC % Seg Neutrophils # Man Lymphocytes # (Manual) PT INR APTT D-Dimer POC ABG pCO2 POC ABG pO2 ABG pO2 ABG O2 Saturation ABG Oxyhemoglobin ABG Potassium ABG Glucose Oxyhemoglobin Sodium Potassium Chloride Carbon Dioxide BUN Creatinine Glucose POC Glucose 199 H 211 H Hemoglobin A1c Calcium Ferritin Total Bilirubin AST ALT Lactate Dehydrogenase Troponin T 0.051 H C-Reactive Protein NT-Pro-B Natriuret Pep Total Protein Albumin Triglycerides HDL Cholesterol PTH Intact Arterial Blood Glucose Urine WBC (Auto) Urine Creatinine Urine Total Protein Coronavirus (PCR) 01/04/21 01/04/21 11:53 12:25 WBC RBC Hgb Hct Plt Count Seg Neuts % (Manual) Lymphocytes % (Manual) Nucleated RBC % Seg Neutrophils # Man Lymphocytes # (Manual) PT INR APTT D-Dimer POC ABG pCO2 POC ABG pO2 ABG pO2 ABG O2 Saturation ABG Oxyhemoglobin ABG Potassium ABG Glucose Oxyhemoglobin Sodium Potassium 7.2 H* Chloride Carbon Dioxide 19 L BUN 104 H Creatinine 3.8 H D Glucose 209 H POC Glucose 198 H Hemoglobin A1c Calcium 7.4 L Ferritin Total Bilirubin 4.70 H AST 4279 H ALT 4895 H Lactate Dehydrogenase Troponin T C-Reactive Protein NT-Pro-B Natriuret Pep Total Protein 4.9 L Albumin 2.4 L Triglycerides HDL Cholesterol PTH Intact Arterial Blood Glucose Urine WBC (Auto) Urine Creatinine Urine Total Protein Coronavirus (PCR) Allied health notes reviewed: nursing
--- NOTE | 2021-01-04 15:05 | XRay Report ---
CHEST 1 VIEW 01/04/2021 1:55 PM INDICATION / CLINICAL INFORMATION: Right IJ placement; COVID. COMPARISON: Earlier today at 1:01 AM. FINDINGS: SUPPORT DEVICES: There is a new right jugular CVL with the tip overlying the mid SVC. The positions o f the endotracheal and nasogastric tubes have not changed. HEART / MEDIASTINUM: Pneumomediastinum is again identified and is similar to the prior exam. Cardiome tang has not changed. LUNGS / PLEURA: Moderately severe diffuse bilateral groundglass parenchymal disease is stable. No sig nificant pleural effusion. No pneumothorax. ADDITIONAL FINDINGS: Mild subcutaneous emphysema in the left lower neck/supraclavicular region appear s more prominent. IMPRESSION: Right jugular CVL placement without complication. Signer Name: Panchito Tomas MD Signed: 01/04/2021 3:00 PM Workstation Name: [id number]
[2021-01-04] MEDS: fentaNYL DRIP Premix 2,000 MCG/100 ML BAG IV SCH (15:30)
[2021-01-04] MEDS ORDERED: LACTATED RINGERS 2,000 ML ONE (15:51)
[2021-01-04] MEDS ORDERED: LACTATED RINGERS 1,000 ML IV ONE ×2 (15:52→15:53)
[2021-01-04] MEDS ORDERED: EPINEPHrine 1 MG/1 ML 8 MG in SODIUM CHLORIDE 0.9% 250ML 242 ML IV SCH (17:00)
--- NOTE | 2021-01-04 17:15 | Progress Note ---
Assessment and Plan Cultures: SARS CoV2 PCR: positive A/P: 50/M with HTN, CHF, non-compliance, currently incarcerated admitted to the hospital with: #Sepsis, secondary to bilateral pneumonia due to COVID-19: severe disease. Admission labs: procalcitonin 1.45, D-dimer >10,000, CRP 5.2. CRP down to 1.1. #Acute hypoxic respiratory failure: on BiPAP-->HFNC 100%40L --> now on the vent #NAVJOT: Improving/Renally dose antibiotics. #Morbid obesity #Bilateral DVTs: Anticoagulation per primary Recs: Completed Remdesivir. Completed empiric antibiotics. Continue on steroids x 10 days Does not meet hospital criteria for Actemra based on CRP Leukocytosis likely secondary to high-dose steroids Dain Bergeron MD [facility] O: [phone] F: [phone] Subjective Date of service: 01/04/21 Principal diagnosis: COVID-19 PNA Interval history: Afebrile, white count 28.9. Now intubated in the ICU. Objective - Exam Narrative Exam: Physical exam deferred to reduce risk of transmission of COVID-19. Please refer to primary team's note. - Constitutional Vitals: Vital Signs Temp Pulse Resp BP Pulse Ox 98.0 F 113 H 21 127/56 76 L 01/04/21 12:01 01/04/21 16:45 01/04/21 16:45 01/04/21 16:45 01/04/21 16:45 Temperature -Last 24 Hours Temperature 98.0 F Temperature 99.5 F Temperature 98.6 F Temperature 97.8 F Temperature 97.7 F - Labs CBC & Chem 7: 01/03/21 23:10 01/04/21 12:25 Labs: Abnormal lab results 01/03/21 01/03/21 01/03/21 Range/Units 22:12 22:38 23:10 WBC (4.5-11.0) K/mm3 RBC (3.65-5.03) M/mm3 Hgb (11.8-15.2) gm/dl Hct (35.5-45.6) % Plt Count (140-440) K/mm3 Seg Neuts % (Manual) (40.0-70.0) % Lymphocytes % (Manual) (13.4-35.0) % Seg Neutrophils # Man (1.8-7.7) K/mm3 Lymphocytes # (Manual) (1.2-5.4) K/mm3 PT (12.2-14.9) Sec. INR (0.87-1.13) APTT (24.2-36.6) Sec. Potassium 6.2 H* D (3.6-5.0) mmol/L Carbon Dioxide 15 L D (22-30) mmol/L BUN 89 H (9-20) mg/dL Creatinine 2.3 H D (0.8-1.3) mg/dL Glucose 264 H (75-100) mg/dL POC Glucose 242 H 217 H (70-105) mg/dL Calcium 7.9 L (8.4-10.2) mg/dL Total Bilirubin (0.1-1.2) mg/dL AST (5-40) units/L ALT (7-56) units/L Troponin T (0.00-0.029) ng/mL Total Protein (6.3-8.2) g/dL Albumin (3.9-5) g/dL 01/03/21 01/03/21 01/03/21 Range/Units 23:10 23:10 23:10 WBC 28.9 H (4.5-11.0) K/mm3 RBC 3.62 L (3.65-5.03) M/mm3 Hgb 10.3 L (11.8-15.2) gm/dl Hct 32.2 L (35.5-45.6) % Plt Count 116 L (140-440) K/mm3 Seg Neuts % (Manual) 97.0 H (40.0-70.0) % Lymphocytes % (Manual) 3.0 L (13.4-35.0) % Seg Neutrophils # Man 28.0 H (1.8-7.7) K/mm3 Lymphocytes # (Manual) 0.9 L (1.2-5.4) K/mm3 PT 21.6 H (12.2-14.9) Sec. INR 1.70 H (0.87-1.13) APTT 38.8 H (24.2-36.6) Sec. Potassium (3.6-5.0) mmol/L Carbon Dioxide (22-30) mmol/L BUN (9-20) mg/dL Creatinine (0.8-1.3) mg/dL Glucose (75-100) mg/dL POC Glucose (70-105) mg/dL Calcium (8.4-10.2) mg/dL Total Bilirubin (0.1-1.2) mg/dL AST (5-40) units/L ALT (7-56) units/L Troponin T 0.051 H (0.00-0.029) ng/mL Total Protein (6.3-8.2) g/dL Albumin (3.9-5) g/dL 01/04/21 01/04/21 01/04/21 Range/Units 05:22 07:08 11:53 WBC (4.5-11.0) K/mm3 RBC (3.65-5.03) M/mm3 Hgb (11.8-15.2) gm/dl Hct (35.5-45.6) % Plt Count (140-440) K/mm3 Seg Neuts % (Manual) (40.0-70.0) % Lymphocytes % (Manual) (13.4-35.0) % Seg Neutrophils # Man (1.8-7.7) K/mm3 Lymphocytes # (Manual) (1.2-5.4) K/mm3 PT (12.2-14.9) Sec. INR (0.87-1.13) APTT (24.2-36.6) Sec. Potassium (3.6-5.0) mmol/L Carbon Dioxide (22-30) mmol/L BUN (9-20) mg/dL Creatinine (0.8-1.3) mg/dL Glucose (75-100) mg/dL POC Glucose 199 H 211 H 198 H (70-105) mg/dL Calcium (8.4-10.2) mg/dL Total Bilirubin (0.1-1.2) mg/dL AST (5-40) units/L ALT (7-56) units/L Troponin T (0.00-0.029) ng/mL Total Protein (6.3-8.2) g/dL Albumin (3.9-5) g/dL 01/04/21 01/04/21 Range/Units 12:25 16:25 WBC (4.5-11.0) K/mm3 RBC (3.65-5.03) M/mm3 Hgb (11.8-15.2) gm/dl Hct (35.5-45.6) % Plt Count (140-440) K/mm3 Seg Neuts % (Manual) (40.0-70.0) % Lymphocytes % (Manual) (13.4-35.0) % Seg Neutrophils # Man (1.8-7.7) K/mm3 Lymphocytes # (Manual) (1.2-5.4) K/mm3 PT (12.2-14.9) Sec. INR (0.87-1.13) APTT (24.2-36.6) Sec. Potassium 7.2 H* (3.6-5.0) mmol/L Carbon Dioxide 19 L (22-30) mmol/L BUN 104 H (9-20) mg/dL Creatinine 3.8 H D (0.8-1.3) mg/dL Glucose 209 H (75-100) mg/dL POC Glucose 181 H (70-105) mg/dL Calcium 7.4 L (8.4-10.2) mg/dL Total Bilirubin 4.70 H (0.1-1.2) mg/dL AST 4279 H (5-40) units/L ALT 4895 H (7-56) units/L Troponin T (0.00-0.029) ng/mL Total Protein 4.9 L (6.3-8.2) g/dL Albumin 2.4 L (3.9-5) g/dL
[2021-01-04] MEDS: INSULIN GLARGINE 100 UNITS/ML SUB-Q SCH ×2 (21:03→21:18)
[2021-01-04] MEDS ORDERED: APIXABAN 5 MG TAB PO SCH (22:00)
[2021-01-04 23:03] LABS: Calcium 7.3 mg/dL (8.4-10.2)
[2021-01-04] MEDS ORDERED: SODIUM POLYSTYRENE 15 GM/60 ML ORAL LIQD PR ONE (23:46)
[2021-01-04] MEDS ORDERED: CALCIUM CHLORIDE 1,000 MG/10 ML SYRINGE IV ONE (23:56)
[2021-01-04] MEDS ORDERED: SODIUM CHLORIDE 0.9% IV ONE (23:58)
[2021-01-04] MEDS ORDERED: CALCIUM CHLORIDE IV ONE (23:58)
[2021-01-05] MEDS ORDERED: CALCIUM CHLORIDE 1,000 MG in SODIUM CHLORIDE 0.9% 100 ML IV ONE (00:09)
[2021-01-05] MEDS: VASOPRESSIN 20 UNIT in SODIUM CHLORIDE 0.9% 100 ML IV SCH ×2 (00:10→12:00)
[2021-01-05] MEDS: INSULIN LISPRO 100 UNIT/ML SUB-Q SCH ×5 (00:33→15:17)
[2021-01-05] MEDS: METOPROLOL TARTRATE 5 MG/5 ML INJ IV SCH ×4 (00:34→17:07)
[2021-01-05] MEDS ORDERED: DEXTROSE 50% IN WATER (25GM) 50 ML SYRINGE IV ONE ×2 (02:08→17:28)
[2021-01-05] MEDS: NORepinephrine/NS 8 MG-250 ML 8 MG/250 ML INFUS..BTL IV SCH ×4 (02:46→15:16)
[2021-01-05] MEDS: PHENYLEPHRINE 100 MG in SODIUM CHLORIDE 0.9% 90 ML IV SCH ×2 (04:38→13:38)
[2021-01-05] MEDS: methylPREDNISolone Sod Succinate 125 MG/2 ML INJ IV SCH ×2 (06:04→15:16)
[2021-01-05 07:30] LABS: Hematocrit 26.1 % (35.5-45.6); Hemoglobin 7.8 gm/dl (11.8-15.2); Mean Corpuscular HGB Conc 30 % (32-34); Mean Corpuscular Volume 95 fl (84-94); Red Blood Count 2.74 M/mm3 (3.65-5.03); Red Cell Distribution Width 16.3 % (13.2-15.2)
[2021-01-05 07:38] LABS: Platelet Count 48 K/mm3 (140-440)
[2021-01-05 07:51] LABS: Calcium 7.1 mg/dL (8.4-10.2)
[2021-01-05] MEDS ORDERED: DEXTROSE 50% IN WATER (25GM) 50 ML SYRINGE IV SCH ×2 (08:45→13:15)
[2021-01-05] MEDS ORDERED: INSULIN REGULAR, HUMAN 100 UNITS/1 ML IV SCH ×2 (08:45→13:15)
[2021-01-05] MEDS ORDERED: SODIUM BICARB 8.4% 50 MEQ/50 ML SYRINGE IV SCH (08:45)
[2021-01-05] MEDS ORDERED: CALCIUM GLUCONATE 1,000 MG in SODIUM CHLORIDE 0.9% 100 ML IV SCH (08:45)
--- NOTE | 2021-01-05 09:22 | Progress Note ---
Assessment and Plan --S/P cardiac arrest Patient now intubated, status post successful ACLS Patient transferred to ICU, continue to monitor 2D echo, extremely poor prognosis --Severe sepsis with shock Currently on multiple pressors, also initiate bicarbonate drip Critical care and ID following, -- Acute respiratory failure with hypoxia Due to COVID-19 pneumonia s/p BiPAP now intubated Wean as tolerated, on high dose Solu-Medrol, pulmonary following Poor prognosis -- Coronavirus infection with sepsis, POA Continue isolation, high flow oxygen oxygen/BiPAP Completed Remdesivir. Completed empiric antibiotics 5 days Continue high-dose IV steroids x 10 days Does not meet hospital criteria for Actemra based on CRP -- Pneumonia Completed antibiotics, procalcitonin was high -- bilateral DVT on venous Doppler On full dose Lovenox Not stable to go for CTA/V/Q to rule out PE -- Acute kidney failure with vasomotor nephropathy and ATN; Present on admission. Creatinine continue to worsen again, nephrology following Unable to initiate hemodialysis due to extremely low blood pressure and being on multiple pressors ---Hyperkalemia, treat according to protocol Closely monitor electrolytes, nephrology following -- morbid obesity BMI; 44.4 Patient needs weight reduction when medically stable He would benefit by bariatric surgical evaluation as outpatient For weight reduction program when he is medically stable -- Obesity hypoventilation syndrome Balanced diet, increase physical activity discharge, outpatient pulmonary follow-up for sleep study. Present on admission -- DVT prophylaxis On Lovenox -- Advance care planning prognosis discussed, patient counseled regarding coronavirus vaccination within 90 days of discharge. --Continue monitoring in ICU --Disposition; poor prognosis The high probability of a clinically significant, sudden or life threatening deterioration of the [CVS, renal, vascular, respiratory, ID ] system(s) required my full and direct attention, intervention and personal management. The aggregate critical care time was [45] minutes. This time is in addition to time spent performing reported procedures but includes the following: [x] Data Review and interpretation [x] Patient assessment and monitoring of vital signs [x] Documentation [x] Medication orders and management Daily hospital course 50 YO Male with HTN, CHF, Obesity Hypoventilation Syndrome, Medication Noncomp liance, COVID-19 infection Diagnosed 1week prior to admission , was admitted through emergency room with acute respiratory failure requiring supplemental oxygen, tested positive for coronavirus, evaluated by ID managed appropriately per COVID-19 protocols, severely hypoxemic evaluated and managed by digital coordinator patient was requiring high flow nasal cannula oxygen, currently on BiPAP. Venous Doppler was positive for bilateral DVT on full dose anticoagulation with Lovenox, briefly transferred to telemetry, however patient became severely hypoxemic, as patient did not comply with BiPAP, patient was brought back to [facility] for close observation. Patient is being followed and managed by pulmonary, ID and nephrology services[for acute kidney injury] 12/21: Continue supportive care, wean oxygen as tolerated, Pulmonary, Nephrology, ID input. Renal improving. Continue steroids, defer Remedesivir to the ID. CPAP at night due to CARINA 12/22: Patient remains persistently hypoxic, going to be moving the patient down to the IM as he is satting 86% on nonrebreather and also high flow. Prognosis very poor. 12/23: : Continue IMCU. Continue reinforcement for the patient management plan. Continue steroids and remdesivir. Monitor blood sugar closely. Poor prognosis 12/24: Extensive discussion about the patient to be compliant with management plan. Noted hyperkalemia Kayexalate ordered already for the patient. 12/25: Patient remains with poor prognosis hyperkalemia persisted despite improving renal function. Follow-up Kayexalate has been given this morning. Blood sugar still elevated this could be steroid-induced versus underlying diabetes we will check an A1c and in the meantime we will add Lantus at nighttime for better coverage. 12/26: Patient seen and examined remains profoundly hypoxic. Blood sugar still controlled at this time. He did report a fall yesterday but denied any head trauma CT of the head reviewed negative. Counseling provided on compliance. He also has profound bilateral DVT patient is on full dose anticoagulation while is not clear if this developed here on anticoagulation it most likely has been present prior to presentation. Nevertheless we will consult vascular to further evaluate. Electrolytes appear to have been repleted we will recheck labs in a.m. due to profound leukocytosis. 12/27; severely hypoxemic on 40 L high flow nasal cannula oxygen 100% FiO2 Wean as tolerated, poor prognosis 12/28; patient remains on 40 L high flow NC oxygen and intermittent BiPAP 100% FiO2 Wean as tolerated, closely monitor Pulmonary cleared to transfer out of [facility] to telemetry We will also transition full dose anticoagulation from Lovenox to Eliquis per protocol 12/29: Hyperkalemia, corrected with calcium gluconate, Kayexalate Monitor electrolytes Patient remains on high flow nasal cannula oxygen 40 L/100% FiO2/96 O2 sats. 12/30; remains on high flow oxygen 40 L, will wean as tolerated Hyperkalemia resolved, increase Lantus dose to 30 units subcu twice a day 12/31; last night patient went into severe hypoxemia , patient was on 40 L of high flow nasal cannula oxygen and 100% nonrebreather Still was hypoxemic , discussed with digital coordinator Dr. Tan , advised to place on BiPAP, patient was on BiPAP in the past, however refuses to wear it. patient strongly encouraged to comply with BiPAP.and today at the time of my examination patient is on BiPAP saturating well at 98% Encouraged the patient not to remove the BiPAP. He verbalized understanding City Designer considering transfer the patient to [facility] for close monitoring 01/01; patient is saturating well on BiPAP 96 to 97%, however is trying to remove it Strongly encouraged him to comply with BiPAP, also informed him the dangers of removing the BiPAP. 01/02; on BiPAP, 100% FiO2 saturating well at 96 to 97% Wean as tolerated, advised prone positioning as possible 01/03: Remains on continuous BiPAP with 100% FiO2, wean off as tolerated, guarded prognosis, follow inflammatory markers 01/04: Patient went into cardiac arrest last night, intubated during ACLS protocol. Transfer to ICU. Currently patient on multiple pressors, renal function declining high potassium level. Nephrology on board, continue medical management, unable to initiate hemodialysis for severe septic shock. Patient has been released from law enforcement, communication has been made with patient's family. According to continuous pillowcase cutter patient's mother will be flying from out of state to visit the patient tomorrow. Subjective Date of service: 01/04/21 Principal diagnosis: COVID-19 PNA Interval history: Patient seen and examined. Medical records and medication list reviewed. Patient was transferred to ICU last night after having an event of cardiac arrest Patient currently intubated, on multiple pressors Renal function declining Discussed plan of care at bedside with patient's RN. Extremely poor prognosis Objective - Exam Narrative Exam: Limited physical exam due to COVID-19 pandemic to minimize transmission of the disease and to preserve PPE. Vital reviewed and stable. GENERAL: morbidly obese -[place] male lying on bed on mechanical ventilation HEENT: Normocephalic. Atraumatic. NECK: Supple. CHEST/LUNGS: breathing with high flow O2 on ventilator HEART/CARDIOVASCULAR: Heart rate tachycardic on telemetry ABDOMEN: Visibly not distended SKIN: There is no rash NEURO: Does not follow any command MUSCULOSKELETAL: No joint effusion EXTRIMITY: No swelling, no cyanosis or clubbing. PSYCH: Unable to assess - Constitutional Vitals: Vital Signs - 12hr 01/04/21 01/04/21 01/04/21 21:31 21:45 22:01 Temperature Pulse Rate 113 H 116 H 114 H Pulse Rate [ Right Dorsalis Pedis] Respiratory 15 25 H 15 Rate Blood Pressure 122/101 87/54 85/58 O2 Sat by Pulse Oximetry 01/04/21 01/04/21 01/04/21 22:15 22:45 23:01 Temperature Pulse Rate 119 H 112 H 113 H Pulse Rate [ Right Dorsalis Pedis] Respiratory 26 H 13 14 Rate Blood Pressure 150/113 95/65 95/17 O2 Sat by Pulse 47 L Oximetry 01/04/21 01/04/21 01/04/21 23:15 23:46 23:50 Temperature 98.9 F Pulse Rate 112 H 114 H Pulse Rate [ Right Dorsalis Pedis] Respiratory 12 4 L Rate Blood Pressure 95/17 84/80 O2 Sat by Pulse 95 Oximetry 01/05/21 01/05/21 01/05/21 00:00 00:01 00:15 Temperature Pulse Rate 119 H 111 H 119 H Pulse Rate [ 119 H Right Dorsalis Pedis] Respiratory 20 13 14 Rate Blood Pressure 73/54 135/67 O2 Sat by Pulse 90 86 Oximetry 01/05/21 01/05/21 01/05/21 00:31 00:45 01:00 Temperature Pulse Rate 119 H 119 H 118 H Pulse Rate [ Right Dorsalis Pedis] Respiratory 13 13 13 Rate Blood Pressure 135/60 113/65 103/22 O2 Sat by Pulse 79 L 77 L 80 L Oximetry 01/05/21 01/05/21 01/05/21 01:30 02:00 02:15 Temperature Pulse Rate 115 H 114 H 114 H Pulse Rate [ Right Dorsalis Pedis] Respiratory 16 13 17 Rate Blood Pressure 103/33 118/86 118/86 O2 Sat by Pulse 83 L 86 86 Oximetry 01/05/21 01/05/21 01/05/21 02:31 02:45 03:01 Temperature Pulse Rate 114 H 113 H 116 H Pulse Rate [ Right Dorsalis Pedis] Respiratory 16 14 20 Rate Blood Pressure 105/32 112/57 112/57 O2 Sat by Pulse 87 86 79 L Oximetry 01/05/21 01/05/21 01/05/21 03:15 03:31 03:45 Temperature Pulse Rate 110 H 114 H 113 H Pulse Rate [ Right Dorsalis Pedis] Respiratory 16 24 14 Rate Blood Pressure 137/74 88/27 88/27 O2 Sat by Pulse 89 89 Oximetry 01/05/21 01/05/21 01/05/21 03:55 04:00 04:01 Temperature 99.2 F Pulse Rate 112 H 112 H 110 H Pulse Rate [ 112 H Right Dorsalis Pedis] Respiratory 6 L 20 27 H Rate Blood Pressure 88/27 O2 Sat by Pulse 94 90 Oximetry 01/05/21 01/05/21 01/05/21 04:21 04:35 04:45 Temperature Pulse Rate 109 H 107 H 108 H Pulse Rate [ Right Dorsalis Pedis] Respiratory 20 26 H 16 Rate Blood Pressure 149/123 101/23 102/34 O2 Sat by Pulse 93 84 Oximetry 01/05/21 01/05/21 01/05/21 05:01 05:15 05:31 Temperature Pulse Rate 111 H 108 H 112 H Pulse Rate [ Right Dorsalis Pedis] Respiratory 16 26 H 17 Rate Blood Pressure 97/72 102/34 126/84 O2 Sat by Pulse 91 71 L Oximetry 01/05/21 01/05/21 01/05/21 05:45 06:01 06:15 Temperature Pulse Rate 110 H 108 H 106 H Pulse Rate [ Right Dorsalis Pedis] Respiratory 18 22 24 Rate Blood Pressure 126/84 160/101 143/109 O2 Sat by Pulse 91 91 Oximetry 01/05/21 01/05/21 01/05/21 06:31 06:45 07:15 Temperature Pulse Rate 109 H 102 H 102 H Pulse Rate [ Right Dorsalis Pedis] Respiratory 26 H 22 24 Rate Blood Pressure 143/109 160/101 O2 Sat by Pulse 89 92 Oximetry 10/14/21 10/14/21 10/14/21 07:31 07:45 08:00 Temperature 100.0 F H Pulse Rate 104 H 104 H 108 H Pulse Rate [ Right Dorsalis Pedis] Respiratory 20 23 Rate Blood Pressure 73/49 90/21 O2 Sat by Pulse Oximetry 01/05/21 01/05/21 01/05/21 08:01 08:15 08:31 Temperature Pulse Rate 103 H 106 H 105 H Pulse Rate [ Right Dorsalis Pedis] Respiratory 23 23 22 Rate Blood Pressure 90/21 90/21 84/13 O2 Sat by Pulse 62 L 68 L Oximetry 01/05/21 01/05/21 01/05/21 08:37 08:45 09:01 Temperature Pulse Rate 104 H 107 H Pulse Rate [ 112 H Right Dorsalis Pedis] Respiratory 20 21 18 Rate Blood Pressure 106/82 106/82 O2 Sat by Pulse 77 L Oximetry - Labs CBC & Chem 7: 01/05/21 07:10 01/05/21 07:10 Labs: Abnormal lab results 01/04/21 01/04/21 01/04/21 Range/Units 11:53 12:25 16:01 WBC (4.5-11.0) K/mm3 RBC (3.65-5.03) M/mm3 Hgb (11.8-15.2) gm/dl Hct (35.5-45.6) % MCV (84-94) fl MCHC (32-34) % RDW (13.2-15.2) % Plt Count (140-440) K/mm3 ABG pH 7.029 L (7.320-7.450) POC ABG pCO2 52.6 H (32.0-48.0) mmHg POC ABG pO2 68.4 L (83-108) mmHg ABG Hemoglobin 10.0 L (12.0-17.5) ABG Oxyhemoglobin 83.2 L (94-98) ABG Potassium 6.5 H (3.40-4.50) mmol/L ABG Glucose 167 H (65-95) mg/dL Potassium 7.2 H* (3.6-5.0) mmol/L Chloride (98-107) mmol/L Carbon Dioxide 19 L (22-30) mmol/L BUN 104 H (9-20) mg/dL Creatinine 3.8 H D (0.8-1.3) mg/dL Glucose 209 H (75-100) mg/dL POC Glucose 198 H (70-105) mg/dL Calcium 7.4 L (8.4-10.2) mg/dL Total Bilirubin 4.70 H (0.1-1.2) mg/dL AST 4279 H (5-40) units/L ALT 4895 H (7-56) units/L Total Protein 4.9 L (6.3-8.2) g/dL Albumin 2.4 L (3.9-5) g/dL Arterial Blood Glucose 167 H (65-95) mg/dL Arterial Blood Ionized Calcium 4.3 L (4.6-5.3) mg/dL 01/04/21 01/04/21 01/04/21 Range/Units 16:25 22:30 23:16 WBC (4.5-11.0) K/mm3 RBC (3.65-5.03) M/mm3 Hgb (11.8-15.2) gm/dl Hct (35.5-45.6) % MCV (84-94) fl MCHC (32-34) % RDW (13.2-15.2) % Plt Count (140-440) K/mm3 ABG pH (7.320-7.450) POC ABG pCO2 (32.0-48.0) mmHg POC ABG pO2 (83-108) mmHg ABG Hemoglobin (12.0-17.5) ABG Oxyhemoglobin (94-98) ABG Potassium (3.40-4.50) mmol/L ABG Glucose (65-95) mg/dL Potassium 7.4 H* (3.6-5.0) mmol/L Chloride 95.0 L (98-107) mmol/L Carbon Dioxide 11 L D (22-30) mmol/L BUN 105 H (9-20) mg/dL Creatinine 4.8 H (0.8-1.3) mg/dL Glucose 228 H (75-100) mg/dL POC Glucose 181 H 122 H (70-105) mg/dL Calcium 7.3 L (8.4-10.2) mg/dL Total Bilirubin (0.1-1.2) mg/dL AST (5-40) units/L ALT (7-56) units/L Total Protein (6.3-8.2) g/dL Albumin (3.9-5) g/dL Arterial Blood Glucose (65-95) mg/dL Arterial Blood Ionized Calcium (4.6-5.3) mg/dL 01/05/21 01/05/21 01/05/21 Range/Units 02:07 02:13 03:36 WBC (4.5-11.0) K/mm3 RBC (3.65-5.03) M/mm3 Hgb (11.8-15.2) gm/dl Hct (35.5-45.6) % MCV (84-94) fl MCHC (32-34) % RDW (13.2-15.2) % Plt Count (140-440) K/mm3 ABG pH 7.038 L (7.320-7.450) POC ABG pCO2 51.3 H (32.0-48.0) mmHg POC ABG pO2 54.0 L (83-108) mmHg ABG Hemoglobin (12.0-17.5) ABG Oxyhemoglobin (94-98) ABG Potassium 7.0 H (3.40-4.50) mmol/L ABG Glucose 225 H (65-95) mg/dL Potassium (3.6-5.0) mmol/L Chloride (98-107) mmol/L Carbon Dioxide (22-30) mmol/L BUN (9-20) mg/dL Creatinine (0.8-1.3) mg/dL Glucose (75-100) mg/dL POC Glucose 18 L 226 H (70-105) mg/dL Calcium (8.4-10.2) mg/dL Total Bilirubin (0.1-1.2) mg/dL AST (5-40) units/L ALT (7-56) units/L Total Protein (6.3-8.2) g/dL Albumin (3.9-5) g/dL Arterial Blood Glucose 225 H (65-95) mg/dL Arterial Blood Ionized Calcium (4.6-5.3) mg/dL 01/05/21 01/05/21 01/05/21 Range/Units 05:30 07:10 07:10 WBC 32.4 H (4.5-11.0) K/mm3 RBC 2.74 L (3.65-5.03) M/mm3 Hgb 7.8 L (11.8-15.2) gm/dl Hct 26.1 L D (35.5-45.6) % MCV 95 H (84-94) fl MCHC 30 L (32-34) % RDW 16.3 H (13.2-15.2) % Plt Count 48 L (140-440) K/mm3 ABG pH (7.320-7.450) POC ABG pCO2 (32.0-48.0) mmHg POC ABG pO2 (83-108) mmHg ABG Hemoglobin (12.0-17.5) ABG Oxyhemoglobin (94-98) ABG Potassium (3.40-4.50) mmol/L ABG Glucose (65-95) mg/dL Potassium 8.1 H* (3.6-5.0) mmol/L Chloride (98-107) mmol/L Carbon Dioxide 15 L (22-30) mmol/L BUN 112 H (9-20) mg/dL Creatinine 5.8 H (0.8-1.3) mg/dL Glucose 215 H (75-100) mg/dL POC Glucose 151 H (70-105) mg/dL Calcium 7.1 L (8.4-10.2) mg/dL Total Bilirubin (0.1-1.2) mg/dL AST (5-40) units/L ALT (7-56) units/L Total Protein (6.3-8.2) g/dL Albumin (3.9-5) g/dL Arterial Blood Glucose (65-95) mg/dL Arterial Blood Ionized Calcium (4.6-5.3) mg/dL HEART Score - HEART Score Troponin: Troponin T 0.051 ng/mL (0.00-0.029) H 01/03/21 23:10
[2021-01-05 10:14] LABS: Total Cells Counted 100
[2021-01-05 10:15] LABS: Platelet Estimate Consistent w Auto
[2021-01-05] MEDS: FAMOTIDINE 20 MG/2 ML INJ IV SCH (10:20)
[2021-01-05] MEDS: CHOLECALCIFEROL (VIT D3) 1000 UNIT (25 mcg) TAB PO SCH (10:21)
[2021-01-05] MEDS: ZINC SULFATE 220 MG CAP PO SCH (10:21)
[2021-01-05] MEDS: ASCORBIC ACID 500 MG TAB PO SCH (10:21)
--- NOTE | 2021-01-05 10:38 | Progress Note ---
Assessment and Plan 1. Acute kidney injury: NAVJOT in the setting of Covid-19 infection and sepsis. Suspect ATN. Low FeNa. Renal US negative. Monitor renal function. Follow bladder scan. Creatinine level was better, now increased in the setting of profound shock. Avoid nephrotoxic agents. Meds dosage based on GFR. Monitor for [employer] needs. Patient is a not a candidate for conventional HD at this time due to profound hypotension. 2. FEN: Hyperkalemia, meds ordered, monitor. Anion-gap metabolic acidosis, Sod bicarb drip, monitor. Monitor lytes and volume status. 3. Acute hypoxic resp failure, POA: 2/ Covid-19 PNA. Test positive for Covid-19. Per pt he received J&J vaccine in Mar 2020. Currently intubated, on vent. Followed by Pulmonary. 4. Covid-19 PNA, POA: Test positive for Covid-19. Per pt he received J&J vaccine in Mar 2020. On Solumedrol. S/p Remdesivir. Monitor. 5. Sepsis with shock: 2/ Covid-19 pneumonia. Followed by ID. 6. DM / Elevated bl glu: A1C 7.2. Monitor. Prognosis is very poor. D/w and . Subjective: Patient was seen and examined at the bedside. Examination: General appearance: well-developed, appears stated age, obese, intubated, on v ent HEENT: atraumatic Neck: trachea midline Respiratory: coarse breath sounds Heart: S1S2, regular, no murmur Abdomen: soft, obese, bowel sounds heard, NT Integumentary: no rash Neurologic: not responding Ext: trace LE edema Hemodialysis access: R IJ temp catheter Subjective Date of service: 01/05/21 Principal diagnosis: COVID-19 PNA Objective - Vital Signs Vital signs: Vital Signs - 12hr 01/04/21 01/04/21 01/04/21 22:45 23:01 23:15 Temperature Pulse Rate 112 H 113 H 112 H Pulse Rate [ Right Dorsalis Pedis] Respiratory 13 14 12 Rate Blood Pressure 95/65 95/17 95/17 O2 Sat by Pulse 47 L Oximetry 01/04/21 01/04/21 01/05/21 23:46 23:50 00:00 Temperature 98.9 F Pulse Rate 114 H 119 H Pulse Rate [ 119 H Right Dorsalis Pedis] Respiratory 4 L 20 Rate Blood Pressure 84/80 O2 Sat by Pulse 95 90 Oximetry 01/05/21 01/05/21 01/05/21 00:01 00:15 00:31 Temperature Pulse Rate 111 H 119 H 119 H Pulse Rate [ Right Dorsalis Pedis] Respiratory 13 14 13 Rate Blood Pressure 73/54 135/67 135/60 O2 Sat by Pulse 86 79 L Oximetry 01/05/21 01/05/21 01/05/21 00:45 01:00 01:30 Temperature Pulse Rate 119 H 118 H 115 H Pulse Rate [ Right Dorsalis Pedis] Respiratory 13 13 16 Rate Blood Pressure 113/65 103/22 103/33 O2 Sat by Pulse 77 L 80 L 83 L Oximetry 01/05/21 01/05/21 01/05/21 02:00 02:15 02:31 Temperature Pulse Rate 114 H 114 H 114 H Pulse Rate [ Right Dorsalis Pedis] Respiratory 13 17 16 Rate Blood Pressure 118/86 118/86 105/32 O2 Sat by Pulse 86 86 87 Oximetry 01/05/21 01/05/21 01/05/21 02:45 03:01 03:15 Temperature Pulse Rate 113 H 116 H 110 H Pulse Rate [ Right Dorsalis Pedis] Respiratory 14 20 16 Rate Blood Pressure 112/57 112/57 137/74 O2 Sat by Pulse 86 79 L 89 Oximetry 01/05/21 01/05/21 01/05/21 03:31 03:45 03:55 Temperature Pulse Rate 114 H 113 H 112 H Pulse Rate [ Right Dorsalis Pedis] Respiratory 24 14 6 L Rate Blood Pressure 88/27 88/27 O2 Sat by Pulse 89 94 Oximetry 01/05/21 01/05/21 01/05/21 04:00 04:01 04:21 Temperature 99.2 F Pulse Rate 112 H 110 H 109 H Pulse Rate [ 112 H Right Dorsalis Pedis] Respiratory 20 27 H 20 Rate Blood Pressure 88/27 149/123 O2 Sat by Pulse 90 Oximetry 01/05/21 01/05/21 01/05/21 04:35 04:45 05:01 Temperature Pulse Rate 107 H 108 H 111 H Pulse Rate [ Right Dorsalis Pedis] Respiratory 26 H 16 16 Rate Blood Pressure 101/23 102/34 97/72 O2 Sat by Pulse 93 84 Oximetry 01/05/21 01/05/21 01/05/21 05:15 05:31 05:45 Temperature Pulse Rate 108 H 112 H 110 H Pulse Rate [ Right Dorsalis Pedis] Respiratory 26 H 17 18 Rate Blood Pressure 102/34 126/84 126/84 O2 Sat by Pulse 91 71 L 91 Oximetry 01/05/21 01/05/21 01/05/21 06:01 06:15 06:31 Temperature Pulse Rate 108 H 106 H 109 H Pulse Rate [ Right Dorsalis Pedis] Respiratory 22 24 26 H Rate Blood Pressure 160/101 143/109 143/109 O2 Sat by Pulse 91 89 Oximetry 01/05/21 01/05/21 01/05/21 06:45 07:15 07:31 Temperature Pulse Rate 102 H 102 H 104 H Pulse Rate [ Right Dorsalis Pedis] Respiratory 22 24 20 Rate Blood Pressure 160/101 73/49 O2 Sat by Pulse 92 Oximetry 01/05/21 01/05/21 01/05/21 07:45 08:00 08:01 Temperature 100.0 F H Pulse Rate 104 H 108 H 103 H Pulse Rate [ Right Dorsalis Pedis] Respiratory 23 23 Rate Blood Pressure 90/21 90/21 O2 Sat by Pulse 62 L Oximetry 01/05/21 01/05/21 01/05/21 08:15 08:31 08:37 Temperature Pulse Rate 106 H 105 H Pulse Rate [ 112 H Right Dorsalis Pedis] Respiratory 23 22 20 Rate Blood Pressure 90/21 84/13 O2 Sat by Pulse 68 L 77 L Oximetry 01/05/21 01/05/21 01/05/21 08:45 09:00 09:01 Temperature Pulse Rate 104 H 107 H Pulse Rate [ Right Dorsalis Pedis] Respiratory 21 18 Rate Blood Pressure 106/82 31/24 106/82 O2 Sat by Pulse 84 Oximetry - Lab 01/05/21 07:10 01/05/21 07:10 Most recent lab results ABG pH 7.038 (7.320-7.450) L 01/05/21 03:36 ABG pCO2 41.2 mm Hg 12/30/20 19:50 ABG pO2 46.0 mm Hg (80.0-90.0) L 12/30/20 19:50 ABG HCO3 25.5 mmol/L (20.0-26.0) 12/30/20 19:50 ABG O2 Saturation 84.6 (0-100) 01/04/21 16:01 Calcium 7.1 mg/dL (8.4-10.2) L 01/05/21 07:10 Urine Creatinine 134.1 mg/dL (0.1-20.0) H 12/23/20 00:40 Urine Sodium 26 mmol/L 12/23/20 00:40 Urine Total Protein 50 mg/dL (5-11.8) H 12/23/20 00:40 Medications & Allergies - Medications Allergies/Adverse Reactions: Allergies No Known Allergies Allergy (Verified 12/21/20 05:36) Home Medications: Home Medications Medication Instructions Recorded Confirmed Last Taken Type Losartan [Cozaar] 50 mg PO QDAY 12/20/20 12/20/20 12/20/20 07:00 History 50 Active Medications: Generic Name Dose Route Start Last Admin Trade Name Freq PRN Reason Stop Dose Admin Acetaminophen 650 mg 12/20/20 12:52 Acetaminophen 325 Mg Tab PO Q4H PRN Pain MILD(1-3)/Fever >100.5/KWON Ascorbic Acid 500 mg 12/20/20 22:00 01/05/21 10:21 Ascorbic Acid 500 Mg Tab PO 500 mg BID GUSTAVO Administration Cholecalciferol 1,000 unit 12/21/20 10:00 01/05/21 10:21 Cholecalciferol (Vit D3) 1000 Unit (25 Mcg) Tab PO 1,000 unit QDAY GUSTAVO Administration Dextrose 50 ml 01/05/21 08:45 01/05/21 10:16 Dextrose 50% In Water (25gm) 50 Ml Syringe IV 01/05/21 12:45 50 ml ONCE@0845 GUSTAVO Administration Protocol Famotidine 10 mg 01/04/21 10:00 01/05/21 10:20 Famotidine 20 Mg/2 Ml Inj IV 10 mg BID GUSTAVO Administration Fentanyl 50 mcg 01/03/21 23:11 01/03/21 23:30 Fentanyl 100 Mcg/2 Ml Inj IV 50 mcg Q10MIN PRN Administration ANALGESIA Hydralazine HCl 10 mg 12/22/20 17:56 12/22/20 19:01 Hydralazine 20 Mg/1 Ml Inj IV 10 mg Q6H PRN Administration Hypertension NORepinephrine/NS 8 MG-250 ML 8 mg in 250 mls @ 3.75 mls/hr 01/03/21 23:45 01/05/21 06:53 Norepinephrine/Ns 8 Mg-250 Ml (Double Conc) IV 30 mcg/min TITRATE GUSTAVO 56.25 mls/hr Administration Protocol 2 MCG/MIN Propofol 1,000 mg in 100 mls @ 4.818 mls/hr 01/03/21 23:15 01/04/21 16:25 Diprivan 10 Mg/Ml IV 0 mcg/kg/min TITR GUSTAVO 0 mls/hr Titration Protocol 5 MCG/KG/MIN Fentanyl Citrate 2,000 mcg in 100 mls @ 8.03 mls/hr 01/03/21 23:15 01/04/21 22:59 Fentanyl Drip Premix IV Infused TITR GUSTAVO Titration Protocol 1 MCG/KG/HR Vasopressin 20 unit/ Sodium 101 mls @ 9.09 mls/hr 01/04/21 03:00 01/05/21 00:10 Chloride IV 0.03 units/min TITR GUSTAVO 9.09 mls/hr Administration Protocol 0.03 UNITS/MIN Phenylephrine HCl 100 mg/ 100 mls @ 3 mls/hr 01/04/21 04:15 01/05/21 08:12 Sodium Chloride IV 200 mcg/min TITR GUSTAVO 12 mls/hr Titration Protocol 50 MCG/MIN Norepinephrine 4 mg in 250 mls @ 7.5 mls/hr 01/04/21 09:00 01/04/21 19:47 Levophed Drip 4 Mg/Ns 250 Ml IV 01/05/21 18:19 Infused ONCE ONE Titration Protocol 2 MCG/MIN Sodium Bicarbonate 150 meq/ 1,150 mls @ 75 mls/hr 01/04/21 14:00 01/04/21 21:08 Dextrose IV 75 mls/hr DIRECT GUSTAVO Administration Epinephrine 8 mg/ Sodium 250 mls @ 3.75 mls/hr 01/04/21 17:00 Chloride IV TITR GUSTAVO Protocol 2 MCG/MIN Calcium Gluconate 1,000 mg/ 110 mls @ 660 mls/hr 01/05/21 08:45 01/05/21 10:20 Sodium Chloride IV 01/05/21 12:45 660 mls/hr [id number]@[id number] GUSTAVO Administration Insulin Glargine 34 units 12/31/20 19:33 01/04/21 21:18 Insulin Glargine 100 Units/Ml SUB-Q 34 units QHS GUSTAVO Administration Insulin Human Lispro 0 unit 01/04/21 12:00 01/05/21 06:05 Insulin Lispro 100 Unit/Ml SUB-Q 3 unit Q6HR GUSTAVO Administration Protocol Insulin Human Lispro 8 unit 01/04/21 14:00 01/04/21 21:18 Insulin Lispro 100 Unit/Ml SUB-Q Not Given TID GUSTAVO Insulin Human Regular 12 units 01/05/21 08:45 01/05/21 10:16 Insulin Regular, Human 100 Units/1 Ml IV 01/05/21 12:45 12 units ONCE@0845 GUSTAVO Administration Lorazepam 1 mg 12/31/20 10:57 01/03/21 14:54 Lorazepam 2 Mg/Ml Vial IV 1 mg Q4H PRN Administration Agitation Methylprednisolone Sodium Succinate 80 mg 12/31/20 14:00 01/05/21 06:04 Methylprednisolone Sod Succinate 125 Mg/2 Ml Inj IV 80 mg Q8HR GUSTAVO Administration Metoprolol Tartrate 5 mg 12/31/20 12:00 01/05/21 06:11 Metoprolol Tartrate 5 Mg/5 Ml Inj IV Not Given Q6HR [facility] Ondansetron HCl 4 mg 12/20/20 12:52 Ondansetron 4 Mg/2 Ml Inj IV Q8H PRN Nausea And Vomiting Sodium Bicarbonate 50 meq 01/05/21 08:45 01/05/21 10:15 Sodium Bicarb 8.4% 50 Meq/50 Ml Syringe IV 01/05/21 12:45 50 meq ONCE@0845 GUSTAVO Administration Sodium Chloride 10 ml 12/20/20 22:00 01/04/21 21:22 Sodium Chloride 0.9% 10 Ml Flush Syringe IV 10 ml BID GUSTAVO Administration Sodium Chloride 10 ml 12/20/20 12:52 Sodium Chloride 0.9% 10 Ml Flush Syringe IV PRN PRN LINE FLUSH Zinc Sulfate 220 mg 12/20/20 22:00 01/05/21 10:21 Zinc Sulfate 220 Mg Cap PO 220 mg BID GUSTAVO Administration
--- NOTE | 2021-01-05 10:53 | Progress Note ---
Assessment and Plan 50 y/o obese male, COVID positive admitted with acute hypoxic respiratory failure, renal failure and elevated D-Dimer 01/05/21: Very very poor prognosis. Numbers seen for vitals are all related to medication. Most likely will have cardiac arrest soon (in the next 12-24 hours). now that released from [facility] living, mother's information was provided and I spoke with her on the phone yesterday (she is in [place]) She knew he was incarcerated but did not expect this. Explained that his demise was imminent and she understood. She is trying to make her way up here. The patient has a child and the child's mother came to visit him yesterday. Continue supportive measures. 01/04/21: Will place dialysis catheter today in event that patient needs HD. No sedation. Attempt to medically treat K and acidemia for right now. Overall prognosis is very guarded to poor given COVID, mechanical vent and worsening renal function. 01/03/21: Worsening renal function and respiratory status. Will try Precedex to see if this will help patient keep bipap therapy on. 01/02/21: Bump in Cr today. did not give lasix yesterday. AWait renal recs for today. Continue PRN bipap, and combo therapy. Guarded prognosis. 01/01/21: Follow up renal recs. Cr stable but will hold on any further lasix therapy today until they make recs. Wean Bipap. Continue steroids. Anticoagulation. 12/31/20: Ordered lasix for now. If ok with renal will order another dose for later this evening. Patient has extensive bilateral DVT, very well could pass a PE but blood gas would not suggest. Also, ABG's are not helpful in this population as we know they are going to be severely hypoxic. Clinical situation determines intubation 99% of the time. Need to give patient the best chance possible to avoid intubation as the mortality rate with intubation and covid is extremely high. As long as sat can be maintained above 88% even with bipap, prefer to avoid intubation. Needs net negative fluid balance. Guarded prognosis. 12/30/20: Ordered another dose of lasix this am. Prone. Anticoagulation for clots. Guarded Prognosis 12/29/20: COntinue anticoagulation. Prone if possible. Awaiting COVID floor bed. Renal gave lasix this morning. 12/28/20: Reviewed IR note, appreciate their eval. Will start to wean steroids later this week. Continue anticoagulation. Prone if able. Ok with transfer back to floor as he has not required continuous bipap. Still would consider diuresis. 12/27/20: Need to remember that BNP was greater thann 6k on admit. Now has bilateral DVT's extensive. Spoke with IMS yesterday with plans to consult [facility] for evaluation already on therapeutic lovenox. Prone if possible. continue steroids. Guarded prognosis. 12/26/20: Lasix has not been given lately. Will hold off today as well. Follow up renal recs. Prone patient if able. Continue steroids. Guarded prognosis. 12/23/20: Lasix 40 again today. Suggest daily therapy at least for several days to help with volume overload. This could help with oxygenation. Steroids and Remdesivir. Prone if able. BP control. Guarded prognosis. 1. Ordered stat BNP 2. Agree with Echo, follow up read as it has been done per the chart 3. Agree with steroids right now 4. Was given lasix yesterday and renal function improved. Agree with continued therapy, and follow up renal recs 5. Remdesivir ordered by ID 6. Prone as tolerated during the day and sleep prone at night 7. Guarded prognosis. Subjective Date of service: 01/05/21 Principal diagnosis: COVID-19 PNA Interval history: Continues to worsen, essentially no blood pressure. K is 8 this am but not a candidate for HD. Remains unresponsive on the vent, not on sedation. Objective Vital Signs - 12hr 01/04/21 01/04/21 01/04/21 23:01 23:15 23:46 Temperature 98.9 F Pulse Rate 113 H 112 H Pulse Rate [ Right Dorsalis Pedis] Respiratory 14 12 Rate Blood Pressure 95/17 95/17 O2 Sat by Pulse 47 L Oximetry 01/04/21 01/05/21 01/05/21 23:50 00:00 00:01 Temperature Pulse Rate 114 H 119 H 111 H Pulse Rate [ 119 H Right Dorsalis Pedis] Respiratory 4 L 20 13 Rate Blood Pressure 84/80 73/54 O2 Sat by Pulse 95 90 Oximetry 01/05/21 01/05/21 01/05/21 00:15 00:31 00:45 Temperature Pulse Rate 119 H 119 H 119 H Pulse Rate [ Right Dorsalis Pedis] Respiratory 14 13 13 Rate Blood Pressure 135/67 135/60 113/65 O2 Sat by Pulse 86 79 L 77 L Oximetry 01/05/21 01/05/21 01/05/21 01:00 01:30 02:00 Temperature Pulse Rate 118 H 115 H 114 H Pulse Rate [ Right Dorsalis Pedis] Respiratory 13 16 13 Rate Blood Pressure 103/22 103/33 118/86 O2 Sat by Pulse 80 L 83 L 86 Oximetry 01/05/21 01/05/21 01/05/21 02:15 02:31 02:45 Temperature Pulse Rate 114 H 114 H 113 H Pulse Rate [ Right Dorsalis Pedis] Respiratory 17 16 14 Rate Blood Pressure 118/86 105/32 112/57 O2 Sat by Pulse 86 87 86 Oximetry 01/05/21 01/05/21 01/05/21 03:01 03:15 03:31 Temperature Pulse Rate 116 H 110 H 114 H Pulse Rate [ Right Dorsalis Pedis] Respiratory 20 16 24 Rate Blood Pressure 112/57 137/74 88/27 O2 Sat by Pulse 79 L 89 89 Oximetry 01/05/21 01/05/21 01/05/21 03:45 03:55 04:00 Temperature 99.2 F Pulse Rate 113 H 112 H 112 H Pulse Rate [ 112 H Right Dorsalis Pedis] Respiratory 14 6 L 20 Rate Blood Pressure 88/27 O2 Sat by Pulse 94 90 Oximetry 01/05/21 01/05/21 01/05/21 04:01 04:21 04:35 Temperature Pulse Rate 110 H 109 H 107 H Pulse Rate [ Right Dorsalis Pedis] Respiratory 27 H 20 26 H Rate Blood Pressure 88/27 149/123 101/23 O2 Sat by Pulse 93 Oximetry 01/05/21 01/05/21 01/05/21 04:45 05:01 05:15 Temperature Pulse Rate 108 H 111 H 108 H Pulse Rate [ Right Dorsalis Pedis] Respiratory 16 16 26 H Rate Blood Pressure 102/34 97/72 102/34 O2 Sat by Pulse 84 91 Oximetry 01/05/21 01/05/21 01/05/21 05:31 05:45 06:01 Temperature Pulse Rate 112 H 110 H 108 H Pulse Rate [ Right Dorsalis Pedis] Respiratory 17 18 22 Rate Blood Pressure 126/84 126/84 160/101 O2 Sat by Pulse 71 L 91 Oximetry 01/05/21 01/05/21 01/05/21 06:15 06:31 06:45 Temperature Pulse Rate 106 H 109 H 102 H Pulse Rate [ Right Dorsalis Pedis] Respiratory 24 26 H 22 Rate Blood Pressure 143/109 143/109 160/101 O2 Sat by Pulse 91 89 92 Oximetry 01/05/21 01/05/21 01/05/21 07:15 07:31 07:45 Temperature Pulse Rate 102 H 104 H 104 H Pulse Rate [ Right Dorsalis Pedis] Respiratory 24 20 23 Rate Blood Pressure 73/49 90/21 O2 Sat by Pulse Oximetry 01/05/21 01/05/21 01/05/21 08:00 08:01 08:15 Temperature 100.0 F H Pulse Rate 108 H 103 H 106 H Pulse Rate [ Right Dorsalis Pedis] Respiratory 23 23 Rate Blood Pressure 90/21 90/21 O2 Sat by Pulse 62 L Oximetry 01/05/21 01/05/21 01/05/21 08:31 08:37 08:45 Temperature Pulse Rate 105 H 104 H Pulse Rate [ 112 H Right Dorsalis Pedis] Respiratory 22 20 21 Rate Blood Pressure 84/13 106/82 O2 Sat by Pulse 68 L 77 L Oximetry 01/05/21 01/05/21 09:00 09:01 Temperature Pulse Rate 107 H Pulse Rate [ Right Dorsalis Pedis] Respiratory 18 Rate Blood Pressure 31/24 106/82 O2 Sat by Pulse 84 Oximetry CBC and BMP: 01/05/21 07:10 01/05/21 07:10 ABG, PT/INR, D-dimer: ABG ABG pH 7.038 (7.320-7.450) L 01/05/21 03:36 POC ABG pCO2 51.3 mmHg (32.0-48.0) H 01/05/21 03:36 ABG pCO2 41.2 mm Hg 12/30/20 19:50 POC ABG pO2 54.0 mmHg (83-108) L 01/05/21 03:36 ABG pO2 46.0 mm Hg (80.0-90.0) L 12/30/20 19:50 POC ABG HCO3 13.5 01/05/21 03:36 ABG O2 Saturation 84.6 (0-100) 01/04/21 16:01 PT/INR, D-dimer PT 21.6 Sec. (12.2-14.9) H 01/03/21 23:10 INR 1.70 (0.87-1.13) H 01/03/21 23:10 D-Dimer 803.94 ng/mlDDU (0-234) H 01/02/21 10:27 Abnormal lab findings: Abnormal Labs 12/20/20 12/20/20 12/20/20 11:31 11:31 11:31 WBC 16.5 H RBC 5.27 H Hgb Hct MCV MCHC RDW Plt Count Seg Neuts % (Manual) 90.0 H Lymphocytes % (Manual) 5.0 L Nucleated RBC % Seg Neutrophils # Man 14.9 H Lymphocytes # (Manual) 0.8 L PT INR APTT D-Dimer > 93122 H ABG pH POC ABG pCO2 POC ABG pO2 ABG pO2 ABG O2 Saturation ABG Hemoglobin ABG Oxyhemoglobin ABG Potassium ABG Glucose Oxyhemoglobin Sodium 130 L Potassium Chloride 94.5 L Carbon Dioxide BUN 64 H Creatinine 2.6 H Glucose 154 H POC Glucose Hemoglobin A1c Calcium Ferritin Total Bilirubin AST ALT Lactate Dehydrogenase Troponin T C-Reactive Protein NT-Pro-B Natriuret Pep Total Protein Albumin 3.5 L Triglycerides HDL Cholesterol PTH Intact Arterial Blood Glucose Arterial Blood Ionized Calcium Urine WBC (Auto) Urine Creatinine Urine Total Protein Coronavirus (PCR) 12/20/20 12/21/20 12/21/20 11:31 06:10 06:10 WBC 20.1 H RBC 5.55 H Hgb 15.4 H Hct 47.3 H MCV MCHC RDW Plt Count Seg Neuts % (Manual) 89.0 H Lymphocytes % (Manual) Nucleated RBC % 1.0 H Seg Neutrophils # Man 17.9 H Lymphocytes # (Manual) 0.0 L PT INR APTT D-Dimer ABG pH POC ABG pCO2 POC ABG pO2 ABG pO2 ABG O2 Saturation ABG Hemoglobin ABG Oxyhemoglobin ABG Potassium ABG Glucose Oxyhemoglobin Sodium 136 L Potassium Chloride Carbon Dioxide BUN 57 H Creatinine 1.8 H Glucose 193 H POC Glucose Hemoglobin A1c Calcium Ferritin Total Bilirubin AST ALT Lactate Dehydrogenase 10 L Troponin T 0.106 H* C-Reactive Protein 5.20 H NT-Pro-B Natriuret Pep Total Protein Albumin Triglycerides 226 H HDL Cholesterol 31 L PTH Intact Arterial Blood Glucose Arterial Blood Ionized Calcium Urine WBC (Auto) Urine Creatinine Urine Total Protein Coronavirus (PCR) 12/21/20 12/21/20 12/21/20 13:29 14:32 Unknown WBC RBC Hgb Hct MCV MCHC RDW Plt Count Seg Neuts % (Manual) Lymphocytes % (Manual) Nucleated RBC % Seg Neutrophils # Man Lymphocytes # (Manual) PT INR APTT D-Dimer ABG pH POC ABG pCO2 POC ABG pO2 ABG pO2 ABG O2 Saturation ABG Hemoglobin ABG Oxyhemoglobin ABG Potassium ABG Glucose Oxyhemoglobin Sodium 134 L Potassium Chloride Carbon Dioxide BUN 57 H Creatinine 1.8 H Glucose 340 H POC Glucose Hemoglobin A1c Calcium 8.3 L Ferritin Total Bilirubin AST ALT Lactate Dehydrogenase Troponin T C-Reactive Protein NT-Pro-B Natriuret Pep 6191 H Total Protein Albumin 3.3 L Triglycerides HDL Cholesterol PTH Intact Arterial Blood Glucose Arterial Blood Ionized Calcium Urine WBC (Auto) Urine Creatinine Urine Total Protein Coronavirus (PCR) Positive A 12/22/20 12/22/20 12/22/20 05:56 05:56 17:21 WBC 26.6 H RBC 5.22 H Hgb Hct MCV MCHC RDW Plt Count Seg Neuts % (Manual) Lymphocytes % (Manual) Nucleated RBC % Seg Neutrophils # Man Lymphocytes # (Manual) PT INR APTT D-Dimer ABG pH POC ABG pCO2 POC ABG pO2 ABG pO2 ABG O2 Saturation ABG Hemoglobin ABG Oxyhemoglobin ABG Potassium ABG Glucose Oxyhemoglobin Sodium Potassium Chloride Carbon Dioxide BUN 64 H Creatinine 2.0 H Glucose 227 H POC Glucose 188 H Hemoglobin A1c Calcium Ferritin Total Bilirubin AST ALT Lactate Dehydrogenase Troponin T C-Reactive Protein NT-Pro-B Natriuret Pep Total Protein Albumin 3.4 L Triglycerides HDL Cholesterol PTH Intact Arterial Blood Glucose Arterial Blood Ionized Calcium Urine WBC (Auto) Urine Creatinine Urine Total Protein Coronavirus (PCR) 12/23/20 12/23/20 12/23/20 00:40 00:40 05:15 WBC RBC Hgb Hct MCV MCHC RDW Plt Count Seg Neuts % (Manual) Lymphocytes % (Manual) Nucleated RBC % Seg Neutrophils # Man Lymphocytes # (Manual) PT INR APTT D-Dimer ABG pH POC ABG pCO2 POC ABG pO2 ABG pO2 ABG O2 Saturation ABG Hemoglobin ABG Oxyhemoglobin ABG Potassium ABG Glucose Oxyhemoglobin Sodium Potassium 5.6 H Chloride Carbon Dioxide BUN 71 H Creatinine 1.8 H Glucose 225 H POC Glucose Hemoglobin A1c Calcium Ferritin Total Bilirubin AST 46 H ALT 83 H Lactate Dehydrogenase Troponin T C-Reactive Protein NT-Pro-B Natriuret Pep Total Protein Albumin 3.6 L Triglycerides HDL Cholesterol PTH Intact Arterial Blood Glucose Arterial Blood Ionized Calcium Urine WBC (Auto) 8.0 H Urine Creatinine 134.1 H Urine Total Protein 50 H Coronavirus (PCR) 12/23/20 12/23/20 12/23/20 05:15 05:15 11:47 WBC RBC Hgb Hct MCV MCHC RDW Plt Count Seg Neuts % (Manual) Lymphocytes % (Manual) Nucleated RBC % Seg Neutrophils # Man Lymphocytes # (Manual) PT INR APTT D-Dimer ABG pH POC ABG pCO2 POC ABG pO2 ABG pO2 ABG O2 Saturation ABG Hemoglobin ABG Oxyhemoglobin ABG Potassium ABG Glucose Oxyhemoglobin Sodium Potassium Chloride Carbon Dioxide BUN Creatinine Glucose POC Glucose 257 H Hemoglobin A1c 7.2 H Calcium Ferritin Total Bilirubin AST ALT Lactate Dehydrogenase Troponin T C-Reactive Protein NT-Pro-B Natriuret Pep Total Protein Albumin Triglycerides HDL Cholesterol PTH Intact 109.4 H Arterial Blood Glucose Arterial Blood Ionized Calcium Urine WBC (Auto) Urine Creatinine Urine Total Protein Coronavirus (PCR) 12/23/20 12/23/20 12/24/20 13:06 16:41 00:02 WBC RBC Hgb Hct MCV MCHC RDW Plt Count Seg Neuts % (Manual) Lymphocytes % (Manual) Nucleated RBC % Seg Neutrophils # Man Lymphocytes # (Manual) PT INR APTT D-Dimer ABG pH POC ABG pCO2 29.6 L POC ABG pO2 57.8 L ABG pO2 ABG O2 Saturation ABG Hemoglobin ABG Oxyhemoglobin 88.9 L ABG Potassium 4.7 H ABG Glucose 286 H Oxyhemoglobin Sodium Potassium Chloride Carbon Dioxide BUN Creatinine Glucose POC Glucose 199 H 213 H Hemoglobin A1c Calcium Ferritin Total Bilirubin AST ALT Lactate Dehydrogenase Troponin T C-Reactive Protein NT-Pro-B Natriuret Pep Total Protein Albumin Triglycerides HDL Cholesterol PTH Intact Arterial Blood Glucose 286 H Arterial Blood Ionized Calcium Urine WBC (Auto) Urine Creatinine Urine Total Protein Coronavirus (PCR) 12/24/20 12/24/20 12/24/20 04:56 05:17 12:03 WBC RBC Hgb Hct MCV MCHC RDW Plt Count Seg Neuts % (Manual) Lymphocytes % (Manual) Nucleated RBC % Seg Neutrophils # Man Lymphocytes # (Manual) PT INR APTT D-Dimer ABG pH POC ABG pCO2 POC ABG pO2 ABG pO2 ABG O2 Saturation ABG Hemoglobin ABG Oxyhemoglobin ABG Potassium ABG Glucose Oxyhemoglobin Sodium Potassium 5.4 H Chloride Carbon Dioxide 18 L D BUN 74 H Creatinine 1.6 H Glucose 228 H POC Glucose 204 H 218 H Hemoglobin A1c Calcium Ferritin Total Bilirubin AST 44 H ALT 105 H Lactate Dehydrogenase Troponin T C-Reactive Protein NT-Pro-B Natriuret Pep Total Protein Albumin 3.5 L Triglycerides HDL Cholesterol PTH Intact Arterial Blood Glucose Arterial Blood Ionized Calcium Urine WBC (Auto) Urine Creatinine Urine Total Protein Coronavirus (PCR) 12/24/20 12/24/20 12/25/20 17:44 22:25 04:44 WBC RBC Hgb Hct MCV MCHC RDW Plt Count Seg Neuts % (Manual) Lymphocytes % (Manual) Nucleated RBC % Seg Neutrophils # Man Lymphocytes # (Manual) PT INR APTT D-Dimer ABG pH POC ABG pCO2 POC ABG pO2 ABG pO2 ABG O2 Saturation ABG Hemoglobin ABG Oxyhemoglobin ABG Potassium ABG Glucose Oxyhemoglobin Sodium Potassium 5.5 H Chloride Carbon Dioxide BUN 58 H Creatinine Glucose 235 H POC Glucose 266 H 224 H Hemoglobin A1c Calcium Ferritin Total Bilirubin AST ALT Lactate Dehydrogenase Troponin T C-Reactive Protein NT-Pro-B Natriuret Pep Total Protein Albumin Triglycerides HDL Cholesterol PTH Intact Arterial Blood Glucose Arterial Blood Ionized Calcium Urine WBC (Auto) Urine Creatinine Urine Total Protein Coronavirus (PCR) 12/25/20 12/25/20 12/25/20 06:11 11:14 11:14 WBC RBC Hgb Hct MCV MCHC RDW Plt Count Seg Neuts % (Manual) Lymphocytes % (Manual) Nucleated RBC % Seg Neutrophils # Man Lymphocytes # (Manual) PT INR APTT D-Dimer 6017.45 H ABG pH POC ABG pCO2 POC ABG pO2 ABG pO2 ABG O2 Saturation ABG Hemoglobin ABG Oxyhemoglobin ABG Potassium ABG Glucose Oxyhemoglobin Sodium Potassium Chloride Carbon Dioxide BUN Creatinine Glucose POC Glucose 191 H Hemoglobin A1c Calcium Ferritin 1385.0 H Total Bilirubin AST ALT Lactate Dehydrogenase Troponin T C-Reactive Protein NT-Pro-B Natriuret Pep Total Protein Albumin Triglycerides HDL Cholesterol PTH Intact Arterial Blood Glucose Arterial Blood Ionized Calcium Urine WBC (Auto) Urine Creatinine Urine Total Protein Coronavirus (PCR) 12/25/20 12/25/20 12/25/20 11:38 17:00 23:31 WBC RBC Hgb Hct MCV MCHC RDW Plt Count Seg Neuts % (Manual) Lymphocytes % (Manual) Nucleated RBC % Seg Neutrophils # Man Lymphocytes # (Manual) PT INR APTT D-Dimer ABG pH POC ABG pCO2 POC ABG pO2 ABG pO2 ABG O2 Saturation ABG Hemoglobin ABG Oxyhemoglobin ABG Potassium ABG Glucose Oxyhemoglobin Sodium Potassium Chloride Carbon Dioxide BUN Creatinine Glucose POC Glucose 213 H 327 H 307 H Hemoglobin A1c Calcium Ferritin Total Bilirubin AST ALT Lactate Dehydrogenase Troponin T C-Reactive Protein NT-Pro-B Natriuret Pep Total Protein Albumin Triglycerides HDL Cholesterol PTH Intact Arterial Blood Glucose Arterial Blood Ionized Calcium Urine WBC (Auto) Urine Creatinine Urine Total Protein Coronavirus (PCR) 12/26/20 12/26/20 12/26/20 04:23 05:32 11:50 WBC RBC Hgb Hct MCV MCHC RDW Plt Count Seg Neuts % (Manual) Lymphocytes % (Manual) Nucleated RBC % Seg Neutrophils # Man Lymphocytes # (Manual) PT INR APTT D-Dimer ABG pH POC ABG pCO2 POC ABG pO2 ABG pO2 ABG O2 Saturation ABG Hemoglobin ABG Oxyhemoglobin ABG Potassium ABG Glucose Oxyhemoglobin Sodium 146 H Potassium Chloride Carbon Dioxide BUN 49 H Creatinine Glucose 257 H POC Glucose 265 H 231 H Hemoglobin A1c Calcium Ferritin Total Bilirubin AST ALT Lactate Dehydrogenase Troponin T C-Reactive Protein NT-Pro-B Natriuret Pep Total Protein Albumin Triglycerides HDL Cholesterol PTH Intact Arterial Blood Glucose Arterial Blood Ionized Calcium Urine WBC (Auto) Urine Creatinine Urine Total Protein Coronavirus (PCR) 12/26/20 12/26/20 12/27/20 17:17 23:37 04:46 WBC RBC Hgb Hct MCV MCHC RDW Plt Count Seg Neuts % (Manual) Lymphocytes % (Manual) Nucleated RBC % Seg Neutrophils # Man Lymphocytes # (Manual) PT INR APTT D-Dimer ABG pH POC ABG pCO2 POC ABG pO2 ABG pO2 ABG O2 Saturation ABG Hemoglobin ABG Oxyhemoglobin ABG Potassium ABG Glucose Oxyhemoglobin Sodium Potassium Chloride Carbon Dioxide BUN 53 H Creatinine Glucose 242 H POC Glucose 308 H 256 H Hemoglobin A1c Calcium Ferritin Total Bilirubin AST ALT 80 H Lactate Dehydrogenase Troponin T C-Reactive Protein NT-Pro-B Natriuret Pep Total Protein Albumin 3.0 L Triglycerides HDL Cholesterol PTH Intact Arterial Blood Glucose Arterial Blood Ionized Calcium Urine WBC (Auto) Urine Creatinine Urine Total Protein Coronavirus (PCR) 12/27/20 12/27/20 12/27/20 04:46 05:58 11:47 WBC 21.2 H RBC 5.17 H Hgb Hct MCV MCHC RDW Plt Count Seg Neuts % (Manual) Lymphocytes % (Manual) Nucleated RBC % Seg Neutrophils # Man Lymphocytes # (Manual) PT INR APTT D-Dimer ABG pH POC ABG pCO2 POC ABG pO2 ABG pO2 ABG O2 Saturation ABG Hemoglobin ABG Oxyhemoglobin ABG Potassium ABG Glucose Oxyhemoglobin Sodium Potassium Chloride Carbon Dioxide BUN Creatinine Glucose POC Glucose 178 H 184 H Hemoglobin A1c Calcium Ferritin Total Bilirubin AST ALT Lactate Dehydrogenase Troponin T C-Reactive Protein NT-Pro-B Natriuret Pep Total Protein Albumin Triglycerides HDL Cholesterol PTH Intact Arterial Blood Glucose Arterial Blood Ionized Calcium Urine WBC (Auto) Urine Creatinine Urine Total Protein Coronavirus (PCR) 12/27/20 12/27/20 12/27/20 17:14 21:34 23:55 WBC RBC Hgb Hct MCV MCHC RDW Plt Count Seg Neuts % (Manual) Lymphocytes % (Manual) Nucleated RBC % Seg Neutrophils # Man Lymphocytes # (Manual) PT INR APTT D-Dimer ABG pH POC ABG pCO2 POC ABG pO2 ABG pO2 ABG O2 Saturation ABG Hemoglobin ABG Oxyhemoglobin ABG Potassium ABG Glucose Oxyhemoglobin Sodium Potassium Chloride Carbon Dioxide BUN Creatinine Glucose POC Glucose 243 H 318 H 281 H Hemoglobin A1c Calcium Ferritin Total Bilirubin AST ALT Lactate Dehydrogenase Troponin T C-Reactive Protein NT-Pro-B Natriuret Pep Total Protein Albumin Triglycerides HDL Cholesterol PTH Intact Arterial Blood Glucose Arterial Blood Ionized Calcium Urine WBC (Auto) Urine Creatinine Urine Total Protein Coronavirus (PCR) 12/28/20 12/28/20 12/28/20 04:29 05:52 07:39 WBC RBC Hgb Hct MCV MCHC RDW Plt Count Seg Neuts % (Manual) Lymphocytes % (Manual) Nucleated RBC % Seg Neutrophils # Man Lymphocytes # (Manual) PT INR APTT D-Dimer ABG pH POC ABG pCO2 POC ABG pO2 ABG pO2 ABG O2 Saturation ABG Hemoglobin ABG Oxyhemoglobin ABG Potassium ABG Glucose Oxyhemoglobin Sodium 135 L D Potassium 5.3 H D Chloride Carbon Dioxide 18 L D BUN 52 H Creatinine Glucose 280 H POC Glucose 267 H 261 H Hemoglobin A1c Calcium 7.9 L Ferritin Total Bilirubin AST ALT Lactate Dehydrogenase Troponin T C-Reactive Protein NT-Pro-B Natriuret Pep Total Protein Albumin Triglycerides HDL Cholesterol PTH Intact Arterial Blood Glucose Arterial Blood Ionized Calcium Urine WBC (Auto) Urine Creatinine Urine Total Protein Coronavirus (PCR) 12/28/20 12/28/20 12/28/20 11:56 15:00 15:00 WBC 19.0 H RBC 5.46 H Hgb 15.5 H Hct 47.9 H MCV MCHC RDW Plt Count Seg Neuts % (Manual) Lymphocytes % (Manual) Nucleated RBC % Seg Neutrophils # Man Lymphocytes # (Manual) PT 16.0 H INR 1.23 H APTT 38.4 H D-Dimer ABG pH POC ABG pCO2 POC ABG pO2 ABG pO2 ABG O2 Saturation ABG Hemoglobin ABG Oxyhemoglobin ABG Potassium ABG Glucose Oxyhemoglobin Sodium Potassium Chloride Carbon Dioxide BUN Creatinine Glucose POC Glucose 271 H Hemoglobin A1c Calcium Ferritin Total Bilirubin AST ALT Lactate Dehydrogenase Troponin T C-Reactive Protein NT-Pro-B Natriuret Pep Total Protein Albumin Triglycerides HDL Cholesterol PTH Intact Arterial Blood Glucose Arterial Blood Ionized Calcium Urine WBC (Auto) Urine Creatinine Urine Total Protein Coronavirus (PCR) 12/28/20 12/28/20 12/29/20 16:32 22:05 04:39 WBC RBC Hgb Hct MCV MCHC RDW Plt Count Seg Neuts % (Manual) Lymphocytes % (Manual) Nucleated RBC % Seg Neutrophils # Man Lymphocytes # (Manual) PT INR APTT D-Dimer ABG pH POC ABG pCO2 POC ABG pO2 ABG pO2 ABG O2 Saturation ABG Hemoglobin ABG Oxyhemoglobin ABG Potassium ABG Glucose Oxyhemoglobin Sodium Potassium 5.5 H Chloride Carbon Dioxide BUN 51 H Creatinine Glucose 257 H POC Glucose 246 H 324 H Hemoglobin A1c Calcium 8.1 L Ferritin Total Bilirubin AST ALT Lactate Dehydrogenase Troponin T C-Reactive Protein NT-Pro-B Natriuret Pep Total Protein Albumin Triglycerides HDL Cholesterol PTH Intact Arterial Blood Glucose Arterial Blood Ionized Calcium Urine WBC (Auto) Urine Creatinine Urine Total Protein Coronavirus (PCR) 12/29/20 12/29/20 12/29/20 07:16 11:41 15:43 WBC RBC Hgb Hct MCV MCHC RDW Plt Count Seg Neuts % (Manual) Lymphocytes % (Manual) Nucleated RBC % Seg Neutrophils # Man Lymphocytes # (Manual) PT INR APTT D-Dimer ABG pH POC ABG pCO2 POC ABG pO2 ABG pO2 ABG O2 Saturation ABG Hemoglobin ABG Oxyhemoglobin ABG Potassium ABG Glucose Oxyhemoglobin Sodium Potassium Chloride Carbon Dioxide BUN Creatinine Glucose POC Glucose 243 H 250 H 268 H Hemoglobin A1c Calcium Ferritin Total Bilirubin AST ALT Lactate Dehydrogenase Troponin T C-Reactive Protein NT-Pro-B Natriuret Pep Total Protein Albumin Triglycerides HDL Cholesterol PTH Intact Arterial Blood Glucose Arterial Blood Ionized Calcium Urine WBC (Auto) Urine Creatinine Urine Total Protein Coronavirus (PCR) 12/29/20 12/30/20 12/30/20 21:47 07:26 08:27 WBC 25.1 H RBC 5.22 H Hgb Hct MCV MCHC RDW Plt Count Seg Neuts % (Manual) Lymphocytes % (Manual) Nucleated RBC % Seg Neutrophils # Man Lymphocytes # (Manual) PT INR APTT D-Dimer ABG pH POC ABG pCO2 POC ABG pO2 ABG pO2 ABG O2 Saturation ABG Hemoglobin ABG Oxyhemoglobin ABG Potassium ABG Glucose Oxyhemoglobin Sodium Potassium Chloride Carbon Dioxide BUN Creatinine Glucose POC Glucose 250 H 193 H Hemoglobin A1c Calcium Ferritin Total Bilirubin AST ALT Lactate Dehydrogenase Troponin T C-Reactive Protein NT-Pro-B Natriuret Pep Total Protein Albumin Triglycerides HDL Cholesterol PTH Intact Arterial Blood Glucose Arterial Blood Ionized Calcium Urine WBC (Auto) Urine Creatinine Urine Total Protein Coronavirus (PCR) 12/30/20 12/30/20 12/30/20 08:27 11:29 19:50 WBC RBC Hgb Hct MCV MCHC RDW Plt Count Seg Neuts % (Manual) Lymphocytes % (Manual) Nucleated RBC % Seg Neutrophils # Man Lymphocytes # (Manual) PT INR APTT D-Dimer ABG pH POC ABG pCO2 POC ABG pO2 ABG pO2 46.0 L ABG O2 Saturation 80.2 L ABG Hemoglobin ABG Oxyhemoglobin ABG Potassium ABG Glucose Oxyhemoglobin 78.0 L Sodium Potassium Chloride Carbon Dioxide BUN 60 H Creatinine Glucose 240 H POC Glucose 270 H Hemoglobin A1c Calcium Ferritin Total Bilirubin AST ALT Lactate Dehydrogenase Troponin T C-Reactive Protein NT-Pro-B Natriuret Pep Total Protein Albumin Triglycerides HDL Cholesterol PTH Intact Arterial Blood Glucose Arterial Blood Ionized Calcium Urine WBC (Auto) Urine Creatinine Urine Total Protein Coronavirus (PCR) 12/30/20 12/31/20 12/31/20 21:44 06:03 07:21 WBC RBC Hgb Hct MCV MCHC RDW Plt Count Seg Neuts % (Manual) Lymphocytes % (Manual) Nucleated RBC % Seg Neutrophils # Man Lymphocytes # (Manual) PT INR APTT D-Dimer ABG pH POC ABG pCO2 POC ABG pO2 ABG pO2 ABG O2 Saturation ABG Hemoglobin ABG Oxyhemoglobin ABG Potassium ABG Glucose Oxyhemoglobin Sodium Potassium Chloride Carbon Dioxide BUN 65 H Creatinine Glucose 246 H POC Glucose 273 H 227 H Hemoglobin A1c Calcium Ferritin Total Bilirubin AST ALT Lactate Dehydrogenase Troponin T C-Reactive Protein NT-Pro-B Natriuret Pep Total Protein Albumin Triglycerides HDL Cholesterol PTH Intact Arterial Blood Glucose Arterial Blood Ionized Calcium Urine WBC (Auto) Urine Creatinine Urine Total Protein Coronavirus (PCR) 12/31/20 12/31/20 12/31/20 11:28 17:20 21:12 WBC RBC Hgb Hct MCV MCHC RDW Plt Count Seg Neuts % (Manual) Lymphocytes % (Manual) Nucleated RBC % Seg Neutrophils # Man Lymphocytes # (Manual) PT INR APTT D-Dimer ABG pH POC ABG pCO2 POC ABG pO2 ABG pO2 ABG O2 Saturation ABG Hemoglobin ABG Oxyhemoglobin ABG Potassium ABG Glucose Oxyhemoglobin Sodium Potassium Chloride Carbon Dioxide BUN Creatinine Glucose POC Glucose 232 H 256 H 239 H Hemoglobin A1c Calcium Ferritin Total Bilirubin AST ALT Lactate Dehydrogenase Troponin T C-Reactive Protein NT-Pro-B Natriuret Pep Total Protein Albumin Triglycerides HDL Cholesterol PTH Intact Arterial Blood Glucose Arterial Blood Ionized Calcium Urine WBC (Auto) Urine Creatinine Urine Total Protein Coronavirus (PCR) 01/01/21 01/01/21 01/01/21 06:02 06:02 10:41 WBC 21.3 H RBC Hgb Hct MCV MCHC RDW Plt Count Seg Neuts % (Manual) Lymphocytes % (Manual) Nucleated RBC % Seg Neutrophils # Man Lymphocytes # (Manual) PT INR APTT D-Dimer ABG pH POC ABG pCO2 POC ABG pO2 ABG pO2 ABG O2 Saturation ABG Hemoglobin ABG Oxyhemoglobin ABG Potassium ABG Glucose Oxyhemoglobin Sodium Potassium Chloride Carbon Dioxide BUN 67 H Creatinine Glucose 256 H POC Glucose 225 H Hemoglobin A1c Calcium Ferritin Total Bilirubin AST ALT Lactate Dehydrogenase Troponin T C-Reactive Protein NT-Pro-B Natriuret Pep Total Protein Albumin Triglycerides HDL Cholesterol PTH Intact Arterial Blood Glucose Arterial Blood Ionized Calcium Urine WBC (Auto) Urine Creatinine Urine Total Protein Coronavirus (PCR) 01/01/21 01/01/21 01/01/21 14:33 19:02 21:48 WBC RBC Hgb Hct MCV MCHC RDW Plt Count Seg Neuts % (Manual) Lymphocytes % (Manual) Nucleated RBC % Seg Neutrophils # Man Lymphocytes # (Manual) PT INR APTT D-Dimer ABG pH POC ABG pCO2 POC ABG pO2 ABG pO2 ABG O2 Saturation ABG Hemoglobin ABG Oxyhemoglobin ABG Potassium ABG Glucose Oxyhemoglobin Sodium Potassium Chloride Carbon Dioxide BUN Creatinine Glucose POC Glucose 230 H 221 H 270 H Hemoglobin A1c Calcium Ferritin Total Bilirubin AST ALT Lactate Dehydrogenase Troponin T C-Reactive Protein NT-Pro-B Natriuret Pep Total Protein Albumin Triglycerides HDL Cholesterol PTH Intact Arterial Blood Glucose Arterial Blood Ionized Calcium Urine WBC (Auto) Urine Creatinine Urine Total Protein Coronavirus (PCR) 01/02/21 01/02/21 01/02/21 06:36 07:30 10:27 WBC RBC Hgb Hct MCV MCHC RDW Plt Count Seg Neuts % (Manual) Lymphocytes % (Manual) Nucleated RBC % Seg Neutrophils # Man Lymphocytes # (Manual) PT INR APTT D-Dimer 803.94 H ABG pH POC ABG pCO2 POC ABG pO2 ABG pO2 ABG O2 Saturation ABG Hemoglobin ABG Oxyhemoglobin ABG Potassium ABG Glucose Oxyhemoglobin Sodium Potassium Chloride Carbon Dioxide BUN 69 H Creatinine 1.4 H Glucose 284 H POC Glucose 227 H Hemoglobin A1c Calcium Ferritin Total Bilirubin AST ALT Lactate Dehydrogenase Troponin T C-Reactive Protein NT-Pro-B Natriuret Pep Total Protein Albumin Triglycerides HDL Cholesterol PTH Intact Arterial Blood Glucose Arterial Blood Ionized Calcium Urine WBC (Auto) Urine Creatinine Urine Total Protein Coronavirus (PCR) 01/02/21 01/02/21 01/02/21 10:27 10:27 11:29 WBC RBC Hgb Hct MCV MCHC RDW Plt Count Seg Neuts % (Manual) Lymphocytes % (Manual) Nucleated RBC % Seg Neutrophils # Man Lymphocytes # (Manual) PT INR APTT D-Dimer ABG pH POC ABG pCO2 POC ABG pO2 ABG pO2 ABG O2 Saturation ABG Hemoglobin ABG Oxyhemoglobin ABG Potassium ABG Glucose Oxyhemoglobin Sodium Potassium Chloride Carbon Dioxide BUN Creatinine Glucose POC Glucose 270 H Hemoglobin A1c Calcium Ferritin 1938.0 H Total Bilirubin AST ALT Lactate Dehydrogenase 683 H Troponin T C-Reactive Protein NT-Pro-B Natriuret Pep Total Protein Albumin Triglycerides HDL Cholesterol PTH Intact Arterial Blood Glucose Arterial Blood Ionized Calcium Urine WBC (Auto) Urine Creatinine Urine Total Protein Coronavirus (PCR) 01/02/21 01/02/21 01/03/21 17:06 21:23 04:40 WBC 23.3 H RBC Hgb 11.7 L Hct MCV MCHC RDW Plt Count 117 L Seg Neuts % (Manual) 99.0 H Lymphocytes % (Manual) Nucleated RBC % Seg Neutrophils # Man 23.1 H Lymphocytes # (Manual) 0.0 L PT INR APTT D-Dimer ABG pH POC ABG pCO2 POC ABG pO2 ABG pO2 ABG O2 Saturation ABG Hemoglobin ABG Oxyhemoglobin ABG Potassium ABG Glucose Oxyhemoglobin Sodium Potassium Chloride Carbon Dioxide BUN Creatinine Glucose POC Glucose 272 H 225 H Hemoglobin A1c Calcium Ferritin Total Bilirubin AST ALT Lactate Dehydrogenase Troponin T C-Reactive Protein NT-Pro-B Natriuret Pep Total Protein Albumin Triglycerides HDL Cholesterol PTH Intact Arterial Blood Glucose Arterial Blood Ionized Calcium Urine WBC (Auto) Urine Creatinine Urine Total Protein Coronavirus (PCR) 01/03/21 01/03/21 01/03/21 04:40 07:19 12:16 WBC RBC Hgb Hct MCV MCHC RDW Plt Count Seg Neuts % (Manual) Lymphocytes % (Manual) Nucleated RBC % Seg Neutrophils # Man Lymphocytes # (Manual) PT INR APTT D-Dimer ABG pH POC ABG pCO2 POC ABG pO2 ABG pO2 ABG O2 Saturation ABG Hemoglobin ABG Oxyhemoglobin ABG Potassium ABG Glucose Oxyhemoglobin Sodium 135 L D Potassium Chloride Carbon Dioxide BUN 68 H Creatinine Glucose 243 H POC Glucose 225 H 299 H Hemoglobin A1c Calcium 7.9 L Ferritin Total Bilirubin AST ALT Lactate Dehydrogenase Troponin T C-Reactive Protein NT-Pro-B Natriuret Pep Total Protein Albumin Triglycerides HDL Cholesterol PTH Intact Arterial Blood Glucose Arterial Blood Ionized Calcium Urine WBC (Auto) Urine Creatinine Urine Total Protein Coronavirus (PCR) 01/03/21 01/03/21 01/03/21 15:51 22:12 22:38 WBC RBC Hgb Hct MCV MCHC RDW Plt Count Seg Neuts % (Manual) Lymphocytes % (Manual) Nucleated RBC % Seg Neutrophils # Man Lymphocytes # (Manual) PT INR APTT D-Dimer ABG pH POC ABG pCO2 POC ABG pO2 ABG pO2 ABG O2 Saturation ABG Hemoglobin ABG Oxyhemoglobin ABG Potassium ABG Glucose Oxyhemoglobin Sodium Potassium Chloride Carbon Dioxide BUN Creatinine Glucose POC Glucose 290 H 242 H 217 H Hemoglobin A1c Calcium Ferritin Total Bilirubin AST ALT Lactate Dehydrogenase Troponin T C-Reactive Protein NT-Pro-B Natriuret Pep Total Protein Albumin Triglycerides HDL Cholesterol PTH Intact Arterial Blood Glucose Arterial Blood Ionized Calcium Urine WBC (Auto) Urine Creatinine Urine Total Protein Coronavirus (PCR) 01/03/21 01/03/21 01/03/21 23:10 23:10 23:10 WBC 28.9 H RBC 3.62 L Hgb 10.3 L Hct 32.2 L MCV MCHC RDW Plt Count 116 L Seg Neuts % (Manual) 97.0 H Lymphocytes % (Manual) 3.0 L Nucleated RBC % Seg Neutrophils # Man 28.0 H Lymphocytes # (Manual) 0.9 L PT 21.6 H INR 1.70 H APTT 38.8 H D-Dimer ABG pH POC ABG pCO2 POC ABG pO2 ABG pO2 ABG O2 Saturation ABG Hemoglobin ABG Oxyhemoglobin ABG Potassium ABG Glucose Oxyhemoglobin Sodium Potassium 6.2 H* D Chloride Carbon Dioxide 15 L D BUN 89 H Creatinine 2.3 H D Glucose 264 H POC Glucose Hemoglobin A1c Calcium 7.9 L Ferritin Total Bilirubin AST ALT Lactate Dehydrogenase Troponin T C-Reactive Protein NT-Pro-B Natriuret Pep Total Protein Albumin Triglycerides HDL Cholesterol PTH Intact Arterial Blood Glucose Arterial Blood Ionized Calcium Urine WBC (Auto) Urine Creatinine Urine Total Protein Coronavirus (PCR) 01/03/21 01/04/21 01/04/21 23:10 05:22 07:08 WBC RBC Hgb Hct MCV MCHC RDW Plt Count Seg Neuts % (Manual) Lymphocytes % (Manual) Nucleated RBC % Seg Neutrophils # Man Lymphocytes # (Manual) PT INR APTT D-Dimer ABG pH POC ABG pCO2 POC ABG pO2 ABG pO2 ABG O2 Saturation ABG Hemoglobin ABG Oxyhemoglobin ABG Potassium ABG Glucose Oxyhemoglobin Sodium Potassium Chloride Carbon Dioxide BUN Creatinine Glucose POC Glucose 199 H 211 H Hemoglobin A1c Calcium Ferritin Total Bilirubin AST ALT Lactate Dehydrogenase Troponin T 0.051 H C-Reactive Protein NT-Pro-B Natriuret Pep Total Protein Albumin Triglycerides HDL Cholesterol PTH Intact Arterial Blood Glucose Arterial Blood Ionized Calcium Urine WBC (Auto) Urine Creatinine Urine Total Protein Coronavirus (PCR) 01/04/21 01/04/21 01/04/21 11:53 12:25 16:01 WBC RBC Hgb Hct MCV MCHC RDW Plt Count Seg Neuts % (Manual) Lymphocytes % (Manual) Nucleated RBC % Seg Neutrophils # Man Lymphocytes # (Manual) PT INR APTT D-Dimer ABG pH 7.029 L POC ABG pCO2 52.6 H POC ABG pO2 68.4 L ABG pO2 ABG O2 Saturation ABG Hemoglobin 10.0 L ABG Oxyhemoglobin 83.2 L ABG Potassium 6.5 H ABG Glucose 167 H Oxyhemoglobin Sodium Potassium 7.2 H* Chloride Carbon Dioxide 19 L BUN 104 H Creatinine 3.8 H D Glucose 209 H POC Glucose 198 H Hemoglobin A1c Calcium 7.4 L Ferritin Total Bilirubin 4.70 H AST 4279 H ALT 4895 H Lactate Dehydrogenase Troponin T C-Reactive Protein NT-Pro-B Natriuret Pep Total Protein 4.9 L Albumin 2.4 L Triglycerides HDL Cholesterol PTH Intact Arterial Blood Glucose 167 H Arterial Blood Ionized Calcium 4.3 L Urine WBC (Auto) Urine Creatinine Urine Total Protein Coronavirus (PCR) 01/04/21 01/04/21 01/04/21 16:25 22:30 23:16 WBC RBC Hgb Hct MCV MCHC RDW Plt Count Seg Neuts % (Manual) Lymphocytes % (Manual) Nucleated RBC % Seg Neutrophils # Man Lymphocytes # (Manual) PT INR APTT D-Dimer ABG pH POC ABG pCO2 POC ABG pO2 ABG pO2 ABG O2 Saturation ABG Hemoglobin ABG Oxyhemoglobin ABG Potassium ABG Glucose Oxyhemoglobin Sodium Potassium 7.4 H* Chloride 95.0 L Carbon Dioxide 11 L D BUN 105 H Creatinine 4.8 H Glucose 228 H POC Glucose 181 H 122 H Hemoglobin A1c Calcium 7.3 L Ferritin Total Bilirubin AST ALT Lactate Dehydrogenase Troponin T C-Reactive Protein NT-Pro-B Natriuret Pep Total Protein Albumin Triglycerides HDL Cholesterol PTH Intact Arterial Blood Glucose Arterial Blood Ionized Calcium Urine WBC (Auto) Urine Creatinine Urine Total Protein Coronavirus (PCR) 01/05/21 01/05/21 01/05/21 02:07 02:13 03:36 WBC RBC Hgb Hct MCV MCHC RDW Plt Count Seg Neuts % (Manual) Lymphocytes % (Manual) Nucleated RBC % Seg Neutrophils # Man Lymphocytes # (Manual) PT INR APTT D-Dimer ABG pH 7.038 L POC ABG pCO2 51.3 H POC ABG pO2 54.0 L ABG pO2 ABG O2 Saturation ABG Hemoglobin ABG Oxyhemoglobin ABG Potassium 7.0 H ABG Glucose 225 H Oxyhemoglobin Sodium Potassium Chloride Carbon Dioxide BUN Creatinine Glucose POC Glucose 18 L 226 H Hemoglobin A1c Calcium Ferritin Total Bilirubin AST ALT Lactate Dehydrogenase Troponin T C-Reactive Protein NT-Pro-B Natriuret Pep Total Protein Albumin Triglycerides HDL Cholesterol PTH Intact Arterial Blood Glucose 225 H Arterial Blood Ionized Calcium Urine WBC (Auto) Urine Creatinine Urine Total Protein Coronavirus (PCR) 01/05/21 01/05/21 01/05/21 05:30 07:10 07:10 WBC 32.4 H RBC 2.74 L Hgb 7.8 L Hct 26.1 L D MCV 95 H MCHC 30 L RDW 16.3 H Plt Count 48 L Seg Neuts % (Manual) Lymphocytes % (Manual) 2.0 L Nucleated RBC % Seg Neutrophils # Man 30.8 H Lymphocytes # (Manual) 0.6 L PT INR APTT D-Dimer ABG pH POC ABG pCO2 POC ABG pO2 ABG pO2 ABG O2 Saturation ABG Hemoglobin ABG Oxyhemoglobin ABG Potassium ABG Glucose Oxyhemoglobin Sodium Potassium 8.1 H* Chloride Carbon Dioxide 15 L BUN 112 H Creatinine 5.8 H Glucose 215 H POC Glucose 151 H Hemoglobin A1c Calcium 7.1 L Ferritin Total Bilirubin AST ALT Lactate Dehydrogenase Troponin T C-Reactive Protein NT-Pro-B Natriuret Pep Total Protein Albumin Triglycerides HDL Cholesterol PTH Intact Arterial Blood Glucose Arterial Blood Ionized Calcium Urine WBC (Auto) Urine Creatinine Urine Total Protein Coronavirus (PCR) Allied health notes reviewed: nursing
[2021-01-05 12:24] LABS: Calcium 6.8 mg/dL (8.4-10.2)
[2021-01-05] MEDS: SODIUM BICARBONATE 150 MEQ in DEXTROSE 5% IN WATER 1,000 ML IV SCH (12:24)
[2021-01-05] MEDS ORDERED: SODIUM POLYSTYRENE 15 GM/60 ML ORAL LIQD PO SCH (13:15)
--- NOTE | 2021-01-05 15:52 | Progress Note ---
Assessment and Plan Cultures: SARS CoV2 PCR: positive A/P: 50/M with HTN, CHF, non-compliance, currently incarcerated admitted to the hospital with: #Sepsis, secondary to bilateral pneumonia due to COVID-19: severe disease. Admission labs: procalcitonin 1.45, D-dimer >10,000, CRP 5.2. CRP down to 1.1. #Acute hypoxic respiratory failure: on BiPAP-->HFNC 100%40L --> now on the vent #NAVJOT: Improving/Renally dose antibiotics. #Morbid obesity #Bilateral DVTs: Anticoagulation per primary Recs: Completed Remdesivir. Completed empiric antibiotics. Continue on steroids x 10 days Does not meet hospital criteria for Actemra based on CRP Leukocytosis likely secondary to high-dose steroids Dain Bergeron MD [facility] O: [phone] F: [phone] Subjective Date of service: 01/05/21 Principal diagnosis: COVID-19 PNA Interval history: Afebrile, white count continues to increase. Objective - Exam Narrative Exam: Physical exam deferred to reduce risk of transmission of COVID-19. Please refer to primary team's note. - Constitutional Vitals: Vital Signs Temp Pulse Resp BP Pulse Ox 100.0 F H 99 H 18 96/11 90 01/05/21 08:00 01/05/21 14:31 01/05/21 14:31 01/05/21 14:31 01/05/21 12:00 Temperature -Last 24 Hours Temperature 100.0 F Temperature 99.2 F Temperature 98.9 F Temperature 98.4 F - Labs CBC & Chem 7: 01/05/21 07:10 01/05/21 Unknown Labs: Abnormal lab results 01/04/21 01/04/21 01/04/21 Range/Units 16:01 16:25 22:30 WBC (4.5-11.0) K/mm3 RBC (3.65-5.03) M/mm3 Hgb (11.8-15.2) gm/dl Hct (35.5-45.6) % MCV (84-94) fl MCHC (32-34) % RDW (13.2-15.2) % Plt Count (140-440) K/mm3 Lymphocytes % (Manual) (13.4-35.0) % Seg Neutrophils # Man (1.8-7.7) K/mm3 Lymphocytes # (Manual) (1.2-5.4) K/mm3 ABG pH 7.029 L (7.320-7.450) POC ABG pCO2 52.6 H (32.0-48.0) mmHg POC ABG pO2 68.4 L (83-108) mmHg ABG Hemoglobin 10.0 L (12.0-17.5) ABG Oxyhemoglobin 83.2 L (94-98) ABG Potassium 6.5 H (3.40-4.50) mmol/L ABG Glucose 167 H (65-95) mg/dL Potassium 7.4 H* (3.6-5.0) mmol/L Chloride 95.0 L (98-107) mmol/L Carbon Dioxide 11 L D (22-30) mmol/L BUN 105 H (9-20) mg/dL Creatinine 4.8 H (0.8-1.3) mg/dL Glucose 228 H (75-100) mg/dL POC Glucose 181 H (70-105) mg/dL Calcium 7.3 L (8.4-10.2) mg/dL Arterial Blood Glucose 167 H (65-95) mg/dL Arterial Blood Ionized Calcium 4.3 L (4.6-5.3) mg/dL 01/04/21 01/05/21 01/05/21 Range/Units 23:16 02:07 02:13 WBC (4.5-11.0) K/mm3 RBC (3.65-5.03) M/mm3 Hgb (11.8-15.2) gm/dl Hct (35.5-45.6) % MCV (84-94) fl MCHC (32-34) % RDW (13.2-15.2) % Plt Count (140-440) K/mm3 Lymphocytes % (Manual) (13.4-35.0) % Seg Neutrophils # Man (1.8-7.7) K/mm3 Lymphocytes # (Manual) (1.2-5.4) K/mm3 ABG pH (7.320-7.450) POC ABG pCO2 (32.0-48.0) mmHg POC ABG pO2 (83-108) mmHg ABG Hemoglobin (12.0-17.5) ABG Oxyhemoglobin (94-98) ABG Potassium (3.40-4.50) mmol/L ABG Glucose (65-95) mg/dL Potassium (3.6-5.0) mmol/L Chloride (98-107) mmol/L Carbon Dioxide (22-30) mmol/L BUN (9-20) mg/dL Creatinine (0.8-1.3) mg/dL Glucose (75-100) mg/dL POC Glucose 122 H 18 L 226 H (70-105) mg/dL Calcium (8.4-10.2) mg/dL Arterial Blood Glucose (65-95) mg/dL Arterial Blood Ionized Calcium (4.6-5.3) mg/dL 01/05/21 01/05/21 01/05/21 Range/Units 03:36 05:30 07:10 WBC 32.4 H (4.5-11.0) K/mm3 RBC 2.74 L (3.65-5.03) M/mm3 Hgb 7.8 L (11.8-15.2) gm/dl Hct 26.1 L D (35.5-45.6) % MCV 95 H (84-94) fl MCHC 30 L (32-34) % RDW 16.3 H (13.2-15.2) % Plt Count 48 L (140-440) K/mm3 Lymphocytes % (Manual) 2.0 L (13.4-35.0) % Seg Neutrophils # Man 30.8 H (1.8-7.7) K/mm3 Lymphocytes # (Manual) 0.6 L (1.2-5.4) K/mm3 ABG pH 7.038 L (7.320-7.450) POC ABG pCO2 51.3 H (32.0-48.0) mmHg POC ABG pO2 54.0 L (83-108) mmHg ABG Hemoglobin (12.0-17.5) ABG Oxyhemoglobin (94-98) ABG Potassium 7.0 H (3.40-4.50) mmol/L ABG Glucose 225 H (65-95) mg/dL Potassium (3.6-5.0) mmol/L Chloride (98-107) mmol/L Carbon Dioxide (22-30) mmol/L BUN (9-20) mg/dL Creatinine (0.8-1.3) mg/dL Glucose (75-100) mg/dL POC Glucose 151 H (70-105) mg/dL Calcium (8.4-10.2) mg/dL Arterial Blood Glucose 225 H (65-95) mg/dL Arterial Blood Ionized Calcium (4.6-5.3) mg/dL 01/05/21 01/05/21 01/05/21 Range/Units 07:10 11:38 11:50 WBC (4.5-11.0) K/mm3 RBC (3.65-5.03) M/mm3 Hgb (11.8-15.2) gm/dl Hct (35.5-45.6) % MCV (84-94) fl MCHC (32-34) % RDW (13.2-15.2) % Plt Count (140-440) K/mm3 Lymphocytes % (Manual) (13.4-35.0) % Seg Neutrophils # Man (1.8-7.7) K/mm3 Lymphocytes # (Manual) (1.2-5.4) K/mm3 ABG pH (7.320-7.450) POC ABG pCO2 (32.0-48.0) mmHg POC ABG pO2 (83-108) mmHg ABG Hemoglobin (12.0-17.5) ABG Oxyhemoglobin (94-98) ABG Potassium (3.40-4.50) mmol/L ABG Glucose (65-95) mg/dL Potassium 8.1 H* (3.6-5.0) mmol/L Chloride (98-107) mmol/L Carbon Dioxide 15 L (22-30) mmol/L BUN 112 H (9-20) mg/dL Creatinine 5.8 H (0.8-1.3) mg/dL Glucose 215 H (75-100) mg/dL POC Glucose 27 L 150 H (70-105) mg/dL Calcium 7.1 L (8.4-10.2) mg/dL Arterial Blood Glucose (65-95) mg/dL Arterial Blood Ionized Calcium (4.6-5.3) mg/dL 01/05/21 Range/Units Unknown WBC (4.5-11.0) K/mm3 RBC (3.65-5.03) M/mm3 Hgb (11.8-15.2) gm/dl Hct (35.5-45.6) % MCV (84-94) fl MCHC (32-34) % RDW (13.2-15.2) % Plt Count (140-440) K/mm3 Lymphocytes % (Manual) (13.4-35.0) % Seg Neutrophils # Man (1.8-7.7) K/mm3 Lymphocytes # (Manual) (1.2-5.4) K/mm3 ABG pH (7.320-7.450) POC ABG pCO2 (32.0-48.0) mmHg POC ABG pO2 (83-108) mmHg ABG Hemoglobin (12.0-17.5) ABG Oxyhemoglobin (94-98) ABG Potassium (3.40-4.50) mmol/L ABG Glucose (65-95) mg/dL Potassium 8.7 H* (3.6-5.0) mmol/L Chloride 97.5 L (98-107) mmol/L Carbon Dioxide 15 L (22-30) mmol/L BUN 113 H (9-20) mg/dL Creatinine 6.0 H (0.8-1.3) mg/dL Glucose 178 H (75-100) mg/dL POC Glucose (70-105) mg/dL Calcium 6.8 L (8.4-10.2) mg/dL Arterial Blood Glucose (65-95) mg/dL Arterial Blood Ionized Calcium (4.6-5.3) mg/dL
[2021-01-05 17:13] VITALS: BP 22/16
[2021-01-05] MEDS ORDERED: MAGNESIUM SULFATE 4 GM/100 ML BAG IV ONE (17:25)
[2021-01-05] MEDS ORDERED: SODIUM BICARB 8.4% 50 MEQ/50 ML SYRINGE IV ONE (17:28)
[2021-01-05] MEDS ORDERED: EPINEPHrine 30 MG/30 ML INJ IV ONE (17:28)
[2021-01-05] MEDS ORDERED: EPINEPHrine 1 MG/10 ML SYRINGE ONE (17:28)
[2021-01-05] MEDS ORDERED: CALCIUM CHLORIDE 1,000 MG/10 ML SYRINGE IV ONE ×2 (17:28→17:41)
[2021-01-05] MEDS ORDERED: ePHEDrine SULFATE 50 MG/1 ML INJ ONE (17:31)
[2021-01-05] MEDS ORDERED: PHENYLEPHRINE 10 MG/1 ML INJ SDV ONE (17:35)
--- NOTE | 2021-01-05 17:44 | Event Note ---
Date: 01/05/21 code luanne called at 17:14 ACLS immediately initiated, please refer the code sheet for details ACLS continued but unable to get back pulse patient pronounced at 17:40 pm called patient's Mother. Jaren Carr who resides in [place] but unable to reach out to her. then I reached out to his significant other and notified her about patient's demise. Cause of : cardiorespiratory arrest due to severe sepsis, multiorgan failure and severe COVID19 PNA
--- NOTE | 2021-01-11 14:18 | Electrocardiograph Report ---
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
--- NOTE | 2021-01-23 11:33 | Death Summary ---
Summary - Providers Date of service: 01/05/21 Consults: 12/21/20 10:03 Consult to Physician [CONS] Routine Comment: Consulting Provider: MARCIAL OBANDO Physician Instructions: Reason For Exam: TYPE 2 NSTEMI 12/21/20 10:04 Consult to Physician [CONS] Routine Comment: Consulting Provider: SHALA PARIS Physician Instructions: Reason For Exam: NAVJOT Consult to Physician [CONS] Routine Comment: Consulting Provider: DORIS VYAS Physician Instructions: Reason For Exam: SEPSIS 12/21/20 10:54 Consult to Physician [CONS] Routine Comment: Consulting Provider: CJ TAN Physician Instructions: Reason For Exam: covid 19 with hypoxic respiratory distress 12/26/20 12:34 Consult to Physician [CONS] Routine Comment: Consulting Provider: ROXANNA ALONZO Physician Instructions: spoke to Nicole/Su Reason For Exam: extensive bilateral dvt 01/04/21 08:04 PICC Line Insertion [Consult to PICC Line RN] [CONS] Stat Reason For Exam: multiple pressors Type Line:: PICC Attending: TAMELA GILL - summary Date of admission: 12/20/20 12:52 Date of : 01/05/21 Significant findings: Cause of : cardiorespiratory arrest due to severe sepsis, multiorgan failure and severe COVID19 PNA Brief History: 50 YO Male with HTN, CHF, Obesity Hypoventilation Syndrome, Medication Noncompli ance, COVID-19 infection Diagnosed 1week prior to admission , was admitted through emergency room with acute respiratory failure requiring supplemental oxygen, tested positive for coronavirus, evaluated by ID managed appropriately per COVID-19 protocols. remains severely hypoxemic evaluated and managed by sheet metal erector patient was requiring high flow nasal cannula oxygen, then placed on BiPAP. Venous Doppler was positive for bilateral DVT on full dose anticoagulation with Lovenox, briefly transferred to telemetry, however patient became severely hypoxemic, as patient did not comply with BiPAP, patient was brought back to IMCU for close observation. Patient was being followed and managed by pulmonary, ID and nephrology services[for acute kidney injury]. Daily hospital course 12/21: Continue supportive care, wean oxygen as tolerated, Pulmonary, Nephrology, ID input. Renal improving. Continue steroids, defer Remedesivir to the ID. CPAP at night due to CARINA 12/22: Patient remains persistently hypoxic, going to be moving the patient down to the IMCU as he is satting 86% on nonrebreather and also high flow. Prognosis very poor. 12/23: : Continue IMCU. Continue reinforcement for the patient management plan. Continue steroids and remdesivir. Monitor blood sugar closely. Poor prognosis 12/24: Extensive discussion about the patient to be compliant with management plan. Noted hyperkalemia Kayexalate ordered already for the patient. 12/25: Patient remains with poor prognosis hyperkalemia persisted despite improving renal function. Follow-up Kayexalate has been given this morning. Blood sugar still elevated this could be steroid-induced versus underlying diabetes we will check an A1c and in the meantime we will add Lantus at nighttime for better coverage. 12/26: Patient seen and examined remains profoundly hypoxic. Blood sugar still controlled at this time. He did report a fall yesterday but denied any head trauma CT of the head reviewed negative. Counseling provided on compliance. He also has profound bilateral DVT patient is on full dose anticoagulation while is not clear if this developed here on anticoagulation it most likely has been present prior to presentation. Nevertheless we will consult vascular to further evaluate. Electrolytes appear to have been repleted we will recheck labs in a.m. due to profound leukocytosis. 12/27; severely hypoxemic on 40 L high flow nasal cannula oxygen 100% FiO2 Wean as tolerated, poor prognosis 12/28; patient remains on 40 L high flow NC oxygen and intermittent BiPAP 100% FiO2 Wean as tolerated, closely monitor Pulmonary cleared to transfer out of [facility] to telemetry We will also transition full dose anticoagulation from Lovenox to Eliquis per protocol 12/29: Hyperkalemia, corrected with calcium gluconate, Kayexalate Monitor electrolytes Patient remains on high flow nasal cannula oxygen 40 L/100% FiO2/96 O2 sats. 12/30; remains on high flow oxygen 40 L, will wean as tolerated Hyperkalemia resolved, increase Lantus dose to 30 units subcu twice a day 12/31; last night patient went into severe hypoxemia , patient was on 40 L of high flow nasal cannula oxygen and 100% nonrebreather Still was hypoxemic , discussed with sheet metal erector Dr. Tan , advised to place on BiPAP, patient was on BiPAP in the past, however refuses to wear it. patient strongly encouraged to comply with BiPAP.and today at the time of my examination patient is on BiPAP saturating well at 98% Encouraged the patient not to remove the BiPAP. He verbalized understanding [employer] Technician considering transfer the patient to [facility] for close monitoring 01/01; patient is saturating well on BiPAP 96 to 97%, however is trying to remove it Strongly encouraged him to comply with BiPAP, also informed him the dangers of removing the BiPAP. 01/02; on BiPAP, 100% FiO2 saturating well at 96 to 97% Wean as tolerated, advised prone positioning as possible 01/03: Remains on continuous BiPAP with 100% FiO2, wean off as tolerated, guarded prognosis, follow inflammatory markers 01/04: Patient went into cardiac arrest last night, intubated during ACLS protocol. Transfer to ICU. Currently patient on multiple pressors, renal function declining high potassium level. Nephrology on board, continue medical management, unable to initiate hemodialysis for severe septic shock. Patient has been released from law enforcement, communication has been made with patient's family. According to major case detective patient's mother will be flying from out of state to visit the patient tomorrow. 01/05; patient had cardiac arrest last noght, intubated, on pressors, extremely poor prognosis. code blue again called at 17:14 ACLS immediately initiated, please refer the code sheet for details ACLS continued but unable to get back pulse patient pronounced at 17:40 pm called patient's Mother. Jaren Lilly who resides in [place] but unable to reach out to her. then I reached out to his significant other and notified her about patient's demise.
== END 2021-01-05 17:40 | DRG 871 ==
LOC: ED 10:56 → EEVIPCON 12:52 → 3A 12:52 → IMCU 12-22 12:31 → 3A 12-30 13:55 → IMCU 12-31 11:54 → CC1 01-04 00:53
PROVIDERS: ADMIT Internal Medicine; ATTEND Internal Medicine
PROC: XW033E5 Introduction of Remdesivir Anti-infective into Peripheral Vein, Percutaneous Approach, New Technology Group 5 (ICD-10-PCS; 2020-12-21)
PROC: 5A09457 Assistance with Respiratory Ventilation, 24-96 Consecutive Hours, Continuous Positive Airway Pressure (ICD-10-PCS; 2020-12-22)
PROC: 4A033R1 Measurement of Arterial Saturation, Peripheral, Percutaneous Approach (ICD-10-PCS; 2020-12-23)
PROC: 5A09457 Assistance with Respiratory Ventilation, 24-96 Consecutive Hours, Continuous Positive Airway Pressure (ICD-10-PCS; 2020-12-31)
PROC: 5A1945Z Respiratory Ventilation, 24-96 Consecutive Hours (ICD-10-PCS; principal; 2021-01-04)
PROC: 0BH17EZ Insertion of Endotracheal Airway into Trachea, Via Natural or Artificial Opening (ICD-10-PCS; 2021-01-04)
PROC: 02HV33Z Insertion of Infusion Device into Superior Vena Cava, Percutaneous Approach (ICD-10-PCS; 2021-01-04)
PROC: B548ZZA Ultrasonography of Superior Vena Cava, Guidance (ICD-10-PCS; 2021-01-04)
PROC: 5A12012 Performance of Cardiac Output, Single, Manual (ICD-10-PCS; 2021-01-05)
DX: A41.89 Other specified sepsis (principal); U07.1 COVID-19; J96.01 Acute respiratory failure with hypoxia; N17.0 Acute kidney failure with tubular necrosis; I21.A1 Myocardial infarction type 2; R65.21 Severe sepsis with septic shock; J12.82 Pneumonia due to coronavirus disease 2019; Z68.41 Body mass index [BMI] 40.0-44.9, adult; E66.2 Morbid (severe) obesity with alveolar hypoventilation; E87.1 Hypo-osmolality and hyponatremia; I82.403 Acute embolism and thrombosis of unspecified deep veins of lower extremity, bilateral; E87.5 Hyperkalemia; I46.9 Cardiac arrest, cause unspecified; I11.0 Hypertensive heart disease with heart failure; I50.9 Heart failure, unspecified; Z82.49 Family history of ischemic heart disease and other diseases of the circulatory system; Z83.3 Family history of diabetes mellitus; Z91.19 Patient's noncompliance with other medical treatment and regimen
CPT/HCPCS: 36415; 36600; 70450; 71045; 74018; 76770; 80048; 80053; 80061; 81001; 82565; 82570; 82728; 82803; 82805; 82962; 83036; 83615; 83880; 83970; 84145; 84156; 84300; 84484; 85007; 85025; 85027; 85379; 85610; 85730; 86140; 89050; 93005; 93306; 93970; 94002; 94003; 94660; 94760; G0378; J0171; J0330; J0360; J0456; J0610; J0696; J1100; J1170; J1644; J1650; J1815; J1940; J2060; J2370; J2704; J2920; J2930; J3010; J3475; J3490; J7030; J7050; J7070; J7120; U0003